=== PATIENT | female | born 1990 | race Caucasian/White ===

== ENCOUNTER 2023-10-08 16:31 | Observation (INO) | payer OTHER, SELFPAY ==
--- NOTE | ~2023-10-08 | US_ITS ---
Pelvic ultrasound. Clinical History: First trimester , vaginal bleeding Technique: Realtime transabdominal and transvaginal scanning of the pelvis was performed. Color flow Doppler and Doppler spectral analysis were performed. Findings: The uterus is anteverted. IUD is in place, in the lower uterine segment. The endometrial st ripe has a thickness of 9 mm. There is heterogeneous fluid within the endometrial cavity extending th rough the internal cervical os and into the cervix. No intrauterine gestational sac identified.. The right ovary measures 2.8 x 1.8 x 2.4 cm. No significant right ovarian or adnexal mass is seen. The left ovary measures 2.2 x 1.6 x 1.7 cm. No significant left ovarian or adnexal mass is seen. There is no evidence of free fluid in the cul de sac. Impression: Heterogeneous fluid within the endometrial cavity and cervix, without well-formed gestational sac. Fi ndings are most compatible with in progress. IUD in place, and the lower uterine segment. Reviewed, dictated and finalized at location . HOLOGY LECTURER Impression: Heterogeneous fluid within the endometrial cavity and cervix, without well-form ed gestational sac. Findings are most compatible with in progress. IUD in place, and the lower uterine segment.
[2023-10-08 16:34] VITALS: BP 119/85; PULSE 99; RESP 16; TEMP 36.4; O2SAT 100
[2023-10-08 17:01] LABS: Basophils Absolute Auto 0.1 K/mm3 (0.0-0.1); Basophils Percent Auto 0.7 % (0.2-1.2); Eosinophils Absolute Auto 0.1 K/mm3 (0-0.3); Eosinophils Percent Auto 1.5 % (0-4.4); Hematocrit 30.2 % (37.0-47.0); Immature Granulocyte Absolute 0.02 K/mm3 (0.00-0.031); Immature Granulocyte Percent A 0.2 % (0-0.5); Lymphocytes Absolute Auto 2.91 K/mm3 (0.9-3.2); Lymphocytes Percent Auto 34.2 % (18.3-44.2); Mean Corpuscular HGB Conc 33.1 g/dl (32-36); Mean Corpuscular Hemoglobin 31.3 pg (26-34); Mean Corpuscular Volume 94.7 fl (80-100); Monocytes Absolute Auto 0.5 K/mm3 (0.1-0.6); Monocytes Percent Auto 6.2 % (2.6-8.5); Neutrophils Absolute Auto 4.9 K/mm3 (1.3-6.7); Neutrophils Percent Auto 57.2 % (45.5-73.1); Platelet Count Result 230 k/mm3 (150-375); Red Blood Count 3.19 M/mm3 (4.2-5.4); Red Cell Distribution Width 13.1 % (11.5-14.5); White Blood Count 8.5 K/mm3 (4.5-10.0)
[2023-10-08 18:35] VITALS: BP 127/64; PULSE 70; RESP 18; O2SAT 100
--- NOTE | 2023-10-08 18:57 | PM.IMHP ---
H&P: HPI History of Present Illness Date/Time: 10/08/23 18:57 Chief Complaint: Bleeding with an IUD and positive test Narrative: set 32-year-old 1 para 0 female who had an IUD placed about 3 months ago. She did not follow-up and called me 2 days ago in [place] complaining of heavy bleeding. She went that late evening to the ER in [place] and was told she was . She returned on the train today and noted that she had heavy bleeding. She was told to stay NPO however she had a full meal. She is here the ER and the ER physician noted very minimal bleeding present. Quantitative hCG years about 2200. Ultrasound results were pending Meds Home Medications and Allergies Allergies Allergy/AdvReac Type Severity Reaction Status Date / Time Penicillins Allergy Rash Verified 10/08/23 16:50 tramadol Allergy Anxiety Verified 10/08/23 16:50 Vital Signs Vital Signs - 24 hr 10/08/23 16:34 10/08/23 18:35 Temperature 97.6 F Pulse Rate 99 70 Respiratory Rate 16 18 Blood Pressure 119/85 127/64 Pulse Oximetry 100 100 Exam Const: General: cooperative, healthy appearing and comfortable Nutritional Appearance: overweight Orientation/consciousness: oriented to person, oriented to place and oriented to time HENMT: Head: normal to inspection Resp: Effort & Inspection: normal respiratory effort Cardio: Rate: regular rate Rhythm: regular rhythm Heart sounds: S1 normal heart sound present and S2 normal heart sound present GI: Inspection: normal to inspection H&P: Results Labs Labs: Short CBC 10/08/23 Range/Units 16:56 WBC 8.5 (4.5-10.0) K/mm3 Hgb 10.0 L (12.0-15.0) g/dL Hct 30.2 L (37.0-47.0) % Plt Count 230 (150-375) k/mm3 Assessment and Plan Assessment and plan (1) Early stage of : Code(s): Z34.90 - Encounter for supervision of normal , unspecified, unspecified trimester Status: Acute (2) IUD complication: Code(s): T83.9XXA - Unspecified complication of genitourinary prosthetic device, implant and graft, initial encounter Status: Acute Plan good ultrasound. Will remove IUD. Will observe for odd for observation she stated she was having very heavy bleeding earlier
--- NOTE | 2023-10-08 19:08 | ED.PREGNANCY ---
HPI - General Chief complaint: Vaginal Bleeding Stated complaint: 7 weeks preg, has IUD, bleeding vaginally Time Seen by Provider: 10/08/23 16:41 History of Present Illness HPI Narrative: Patient has an IUD, was found to have positive test, while she was in [place] she started having heavy vaginal bleeding to the point where she is soaking a pad an hour for multiple hours, her OB told her to go straight to the ER. Bleeding has slowed down since arrival here. Related Data Allergies Allergy/AdvReac Type Severity Reaction Status Date / Time Penicillins Allergy Rash Verified 10/08/23 16:50 tramadol Allergy Anxiety Verified 10/08/23 16:50 Review of Systems Review of Systems: CONST: No fever. HEENT: No sore throat C/V: No chest pain RESP: No cough GI: slight abdominal cramping : vaginal bleeding M/S: No joint pain. SKIN: No rash. NEURO: [No headache or focal numbness or weakness] PSYCH: [No depression] Exam Narrative: EXAMINATION OF ORGAN SYSTEMS/BODY AREAS: Constitutional: Vital signs per nursing GENERAL:[No acute distress, non-toxic appearing.] HEAD: Normal with no signs of head trauma. EYES: EOMI, conjunctiva normal ENT: Hearing grossly intact LUNGS: Nonlabored breathing. HEART: [Regular rate and rhythm] ABD: [Soft], [nontender to palpation] : Scant blood in vault; no active hemorrhage EXT: Normal range of motion SKIN: [No rashes or lesions.] NEURO: [Alert and oriented x 3. No gross focal sensory or strength deficits.] PSYCH: Normal affect Course Vital Signs Vital signs: Vital Signs Temperature 97.6 F 10/08/23 16:34 Pulse Rate 99 10/08/23 16:34 Respiratory Rate 16 10/08/23 16:34 Blood Pressure 119/85 10/08/23 16:34 Pulse Oximetry 100 10/08/23 16:34 Temperature 97.6 F 10/08/23 16:34 Pulse Rate 70 10/08/23 18:35 Respiratory Rate 18 10/08/23 18:35 Blood Pressure 127/64 10/08/23 18:35 Pulse Oximetry 100 10/08/23 18:35 MDM - OB/Uterine Contractions MDM Narrative Medical decision making narrative: patient presenting with vaginal bleeding, showing is recently found to be 7 weeks despite having IUD. Well-appearing on exam, on pelvic exam no active hemorrhage. abdomen soft nontender beta quant 2200, Hemoglobin 10 which is down from baseline of about 12 per OB, I was unable to visualize on my own bedside ultrasound. Discussed with OB on-call, who did come to bedside to evaluate the patient and when the patient for observation. Official transvaginal ultrasound unfortunately showing likely spontaneous . Lab Data 10/08/23 16:56 Labs: Lab Results 10/08/23 Range/Units 16:56 WBC 8.5 (4.5-10.0) K/mm3 RBC 3.19 L (4.2-5.4) M/mm3 Hgb 10.0 L (12.0-15.0) g/dL Hct 30.2 L (37.0-47.0) % MCV 94.7 (80-100) fl MCH 31.3 (26-34) pg MCHC 33.1 (32-36) g/dl RDW 13.1 (11.5-14.5) % Plt Count 230 (150-375) k/mm3 MPV 10.0 (7.4-10.4) fl Immature Gran % (Auto) 0.2 (0-0.5) % Neut % (Auto) 57.2 (45.5-73.1) % Lymph % (Auto) 34.2 (18.3-44.2) % [place] % (Auto) 6.2 (2.6-8.5) % Eos % (Auto) 1.5 (0-4.4) % Baso % (Auto) 0.7 (0.2-1.2) % Lymph # (Auto) 2.91 (0.9-3.2) K/mm3 [place] # (Auto) 0.5 (0.1-0.6) K/mm3 Eos # (Auto) 0.1 (0-0.3) K/mm3 Baso # (Auto) 0.1 (0.0-0.1) K/mm3 Abs Immat Gran (auto) 0.02 (0.00-0.031) K/mm3 Absolute Neuts (auto) 4.9 (1.3-6.7) K/mm3 Absolute Nucleated RBC 0.0 (0.0-0.012) K/mm3 Nucleated RBC % 0.0 (0.0-0.2) % Beta HCG, Quant 2255.90 mIU/ML Blood Type A Positive Antibody Screen Negative Screen TNP Baby's Blood Type TNP Baby's MURPHY TNP Doses of RhIg Required 0 Discharge Plan Discharge Clinical Impression: IUD complication, Vaginal bleeding, Early stage of Patient Disposition: Still a Patient Condition: Serious
--- NOTE | 2023-10-08 19:20 | PC.NURSE ---
Dr. Paredes at bedside to evaluate. Speculum exam performed and IUD removed by Dr. Paredes. Specimen collected and sent to lab. See MD notes.
--- NOTE | 2023-10-08 19:23 | P.PNOB_ITS ---
MECHANICAL ENGINEERING INTERN - A/P Time Spent With Patient Time: Total time spent is greater than 50% in coordination of care (as documented) at patient's floor/unit and/or counseling patient: Time with patient: 15 - 25 minutes MECHANICAL ENGINEERING INTERN- PN:Milly Post-Op Subjective Date/time seen: 10/08/23 19:23 Interval history: The IUD was removed as the cervix was open about 2cm fibroid tissue was attached to. I reviewed the ultrasound which showed findings consistent with pending A/ B. The patient is agreeable to be watched denied syndrome in the morning if she remains stable with recheck of 8 H and H in the morning MECHANICAL ENGINEERING INTERN - PN: Obj Data Vital Signs Vital Signs: Vital Signs - 24 hr 10/08/23 16:34 10/08/23 18:35 Temperature 97.6 F Pulse Rate 99 70 Respiratory Rate 16 18 Blood Pressure 119/85 127/64 Pulse Oximetry 100 100 Meds/Results Medications: Active Medications Generic Name Dose Route Start Last Admin Trade Name Freq PRN Reason Stop Dose Admin Dextrose/Lactated Ringer's 1,000 mls @ 125 mls/hr 10/08/23 18:50 Dextrose 5%/Lactated Ringers IV CONT .Q8H BEATRIZ Radiology Results: ITS Impressions Transvaginal US 10/08/23 19:15 Impression: Heterogeneous fluid within the endometrial cavity and cervix, without well- formed gestational sac. Findings are most compatible with in progress. IUD in place, and the lower uterine segment. Labs 10/08/23 16:56 Labs: Laboratory Results - last 24 hr 10/08/23 16:56 WBC 8.5 RBC 3.19 L Hgb 10.0 L Hct 30.2 L MCV 94.7 MCH 31.3 MCHC 33.1 RDW 13.1 Plt Count 230 MPV 10.0 Immature Gran % (Auto) 0.2 Neut % (Auto) 57.2 Lymph % (Auto) 34.2 [place] % (Auto) 6.2 Eos % (Auto) 1.5 Baso % (Auto) 0.7 Lymph # (Auto) 2.91 [place] # (Auto) 0.5 Eos # (Auto) 0.1 Baso # (Auto) 0.1 Abs Immat Gran (auto) 0.02 Absolute Neuts (auto) 4.9 Absolute Nucleated RBC 0.0 Nucleated RBC % 0.0 Beta HCG, Quant 2255.90 Blood Type A Positive Antibody Screen Negative Screen TNP Baby's Blood Type TNP Baby's MURPHY TNP Doses of RhIg Required 0
[2023-10-08] MEDS: DEXTROSE 5%/LACTATED RINGERS 1,000 ML 125 ML IV CONT (19:49)
[2023-10-08 20:17] VITALS: BMI 45.3
[2023-10-08] MEDS: ZOLPIDEM TARTRATE (*CRX) 5 MG TABLET PO (22:07)
[2023-10-08] MEDS: IBUPROFEN 600 MG TABLET PO (22:07)
[2023-10-09 05:32] LABS: Basophils Percent Auto 0.6 % (0.2-1.2); Eosinophils Absolute Auto 0.2 K/mm3 (0-0.3); Eosinophils Percent Auto 3.5 % (0-4.4); Hematocrit 25.4 % (37.0-47.0); Hemoglobin 8.1 g/dL (12.0-15.0); Immature Granulocyte Absolute 0.02 K/mm3 (0.00-0.031); Immature Granulocyte Percent A 0.4 % (0-0.5); Lymphocytes Absolute Auto 1.56 K/mm3 (0.9-3.2); Lymphocytes Percent Auto 30.7 % (18.3-44.2); Mean Corpuscular HGB Conc 31.9 g/dl (32-36); Mean Corpuscular Hemoglobin 31.4 pg (26-34); Mean Corpuscular Volume 98.4 fl (80-100); Mean Platelet Volume 10.4 fl (7.4-10.4); Monocytes Absolute Auto 0.5 K/mm3 (0.1-0.6); Monocytes Percent Auto 9.4 % (2.6-8.5); Neutrophils Absolute Auto 2.8 K/mm3 (1.3-6.7); Neutrophils Percent Auto 55.4 % (45.5-73.1); Platelet Count Result 168 k/mm3 (150-375); Red Blood Count 2.58 M/mm3 (4.2-5.4); Red Cell Distribution Width 13.2 % (11.5-14.5); White Blood Count 5.1 K/mm3 (4.5-10.0)
--- NOTE | 2023-10-09 07:02 | PM.GYNPNOP ---
SHELLACKER - A/P Postoperative Postoperative day: 1 Postoperative status: doing well and other (Bleeding is light and hemoglobin stable) Time Spent With Patient Time: Total time spent is greater than 50% in coordination of care (as documented) at patient's floor/unit and/or counseling patient: Time with patient: less than 15 minutes SHELLACKER- PN:Subj Post-Op Subjective Date/time seen: 10/09/23 07:02 Interval history: The IUD was removed as the cervix was open about 2cm fibroid tissue was attached to. I reviewed the ultrasound which showed findings consistent with pending A/ B. The patient is agreeable to be watched denied syndrome in the morning if she remains stable with recheck of 8 H and H in the morning Subjective: patient reports feeling better and patient has no complaints Exam Const: General: cooperative, healthy appearing and comfortable Orientation/consciousness: oriented to person, oriented to place and oriented to time SHELLACKER - PN: Obj Data Vital Signs Vital Signs: Vital Signs - 24 hr 10/08/23 16:34 10/08/23 18:35 10/08/23 20:17 Temperature 97.6 F Pulse Rate 99 70 Respiratory Rate 16 18 Blood Pressure 119/85 127/64 Pulse Oximetry 100 100 Oxygen Delivery Room Air Meds/Results Medications: Active Medications Generic Name Dose Route Start Last Admin Trade Name Freq PRN Reason Stop Dose Admin Dextrose/Lactated Ringer's 1,000 mls @ 125 mls/hr 10/08/23 18:50 10/08/23 19:49 Dextrose 5%/Lactated Ringers IV CONT 125 mls/hr .Q8H BEATRIZ Administration Ibuprofen 600 mg 10/08/23 21:48 10/08/23 22:07 Ibuprofen 600 Mg Tablet PO 600 mg Q6H PRN Administration Pain Rated 1-3 Zolpidem Tartrate 5 mg 10/08/23 21:48 10/08/23 22:07 Zolpidem Tartrate (*Crx) 5 Mg Tablet PO 5 mg HS PRN Administration Insomnia Radiology Results: ITS Impressions Transvaginal US 10/08/23 19:15 Impression: Heterogeneous fluid within the endometrial cavity and cervix, without well-formed gestational sac. Findings are most compatible with in progress. IUD in place, and the lower uterine segment. Labs 10/09/23 05:19 Labs: Laboratory Results - last 24 hr 10/08/23 10/09/23 16:56 05:19 WBC 8.5 5.1 RBC 3.19 L 2.58 L Hgb 10.0 L 8.1 L Hct 30.2 L 25.4 L MCV 94.7 98.4 MCH 31.3 31.4 MCHC 33.1 31.9 L RDW 13.1 13.2 Plt Count 230 168 MPV 10.0 10.4 Immature Gran % (Auto) 0.2 0.4 Neut % (Auto) 57.2 55.4 Lymph % (Auto) 34.2 30.7 [place] % (Auto) 6.2 9.4 H Eos % (Auto) 1.5 3.5 Baso % (Auto) 0.7 0.6 Lymph # (Auto) 2.91 1.56 [place] # (Auto) 0.5 0.5 Eos # (Auto) 0.1 0.2 Baso # (Auto) 0.1 0.0 Abs Immat Gran (auto) 0.02 0.02 Absolute Neuts (auto) 4.9 2.8 Absolute Nucleated RBC 0.0 0.0 Nucleated RBC % 0.0 0.0 Beta HCG, Quant 2255.90 Blood Type A Positive Antibody Screen Negative Screen TNP Baby's Blood Type TNP Baby's MURPHY TNP Doses of RhIg Required 0
--- NOTE | 2023-10-09 07:03 | P.DS_ITS ---
DS: Admitting Diagnosis Discharge Date 10/09/2023 Admitting Diagnosis Incomplete AB/IUD displacement DS: Discharge Diagnosis Discharge Diagnosis (1) Vaginal bleeding: Code(s): N93.9 - Abnormal uterine and vaginal bleeding, unspecified Status: Acute (2) IUD complication: Code(s): T83.9XXA - Unspecified complication of genitourinary prosthetic device, implant and graft, initial encounter Status: Acute (3) Early stage of : Code(s): Z34.90 - Encounter for supervision of normal , unspecified, unspecified trimester Status: Acute DS: Summary Hospital Course Reason for hospitalization: Patient was admitted through the emergency department with the displaced IUD and with heavy bleeding. Hospital Course: Patient had the IUD removed in OB. Overnight she was fairly free of bleeding the lower hemoglobin did drop 2 points. She was discharged home on iron follow- up and 1 week Time Spent with Patient Time attestation: Total time spent providing and/or coordinating discharge services: DS: Data Data Completed and Pending Pending studies at discharge: Pending at discharge 10/08/23 19:21 Surgical [PTH] Routine Labs on day of discharge: Labs from last 24 hours 10/09/23 10/08/23 05:19 16:56 WBC 5.1 8.5 RBC 2.58 L 3.19 L Hgb 8.1 L 10.0 L Hct 25.4 L 30.2 L MCV 98.4 94.7 MCH 31.4 31.3 MCHC 31.9 L 33.1 RDW 13.2 13.1 Plt Count 168 230 MPV 10.4 10.0 Immature Gran % (Auto) 0.4 0.2 Neut % (Auto) 55.4 57.2 Lymph % (Auto) 30.7 34.2 [place] % (Auto) 9.4 H 6.2 Eos % (Auto) 3.5 1.5 Baso % (Auto) 0.6 0.7 Lymph # (Auto) 1.56 2.91 [place] # (Auto) 0.5 0.5 Eos # (Auto) 0.2 0.1 Baso # (Auto) 0.0 0.1 Abs Immat Gran (auto) 0.02 0.02 Absolute Neuts (auto) 2.8 4.9 Absolute Nucleated RBC 0.0 0.0 Nucleated RBC % 0.0 0.0 Beta HCG, Quant 2255.90 Blood Type A Positive Antibody Screen Negative Screen TNP Baby's Blood Type TNP Baby's MURPHY TNP Doses of RhIg Required 0 Discharge Plan Discharge Attending physician on discharge: Timothy Harris Discharging Clinician: Timothy Harris Patient Disposition: Home, Self-Care Activity: may shower, no straining and pelvic rest Diet: heart healthy Wound Care Instructions: follow printed instructions Patient Instructions: Antibiotic Form Stand Alone Forms: General Discharge Information Follow-up/Referrals: Timothy Harris MD [Physician] - Date of admission: 10/08/23 18:11 Primary Care Provider: UNKNOWN,DOCTOR Admitting Provider: Timothy Harris Attending physician on admission: Timothy Harris Condition: Stable
--- NOTE | 2023-10-09 07:05 | PM.GYNPNOP ---
SAFETY SITTER - A/P Postoperative Postoperative day: 1 Postoperative status: doing well Postoperative plan: other (Home) Time Spent With Patient Time: Total time spent is greater than 50% in coordination of care (as documented) at patient's floor/unit and/or counseling patient: Time with patient: less than 15 minutes SAFETY SITTER- PN:Subj Post-Op Subjective Date/time seen: 10/09/23 07:05 Interval history: The IUD was removed as the cervix was open about 2cm fibroid tissue was attached to. I reviewed the ultrasound which showed findings consistent with pending A/ B. The patient is agreeable to be watched denied syndrome in the morning if she remains stable with recheck of 8 H and H in the morning Exam Const: General: cooperative, healthy appearing and comfortable Nutritional Appearance: average body habitus Orientation/consciousness: oriented to person, oriented to place and oriented to time Resp: Effort & Inspection: normal respiratory effort Cardio: Rate: regular rate Rhythm: regular rhythm Heart sounds: S1 normal heart sound present and S2 normal heart sound present : Speculum Exam - Vagina: vaginal bleeding (Bleeding is light) SAFETY SITTER - PN: Obj Data Vital Signs Vital Signs: Vital Signs - 24 hr 10/08/23 16:34 10/08/23 18:35 10/08/23 20:17 Temperature 97.6 F Pulse Rate 99 70 Respiratory Rate 16 18 Blood Pressure 119/85 127/64 Pulse Oximetry 100 100 Oxygen Delivery Room Air Meds/Results Medications: Active Medications Generic Name Dose Route Start Last Admin Trade Name Freq PRN Reason Stop Dose Admin Dextrose/Lactated Ringer's 1,000 mls @ 125 mls/hr 10/08/23 18:50 10/08/23 19:49 Dextrose 5%/Lactated Ringers IV CONT 125 mls/hr .Q8H BEATRIZ Administration Ibuprofen 600 mg 10/08/23 21:48 10/08/23 22:07 Ibuprofen 600 Mg Tablet PO 600 mg Q6H PRN Administration Pain Rated 1-3 Zolpidem Tartrate 5 mg 10/08/23 21:48 10/08/23 22:07 Zolpidem Tartrate (*Crx) 5 Mg Tablet PO 5 mg HS PRN Administration Insomnia Radiology Results: ITS Impressions Transvaginal US 10/08/23 19:15 Impression: Heterogeneous fluid within the endometrial cavity and cervix, without well-formed gestational sac. Findings are most compatible with in progress. IUD in place, and the lower uterine segment. Labs 10/09/23 05:19 Labs: Laboratory Results - last 24 hr 10/08/23 10/09/23 16:56 05:19 WBC 8.5 5.1 RBC 3.19 L 2.58 L Hgb 10.0 L 8.1 L Hct 30.2 L 25.4 L MCV 94.7 98.4 MCH 31.3 31.4 MCHC 33.1 31.9 L RDW 13.1 13.2 Plt Count 230 168 MPV 10.0 10.4 Immature Gran % (Auto) 0.2 0.4 Neut % (Auto) 57.2 55.4 Lymph % (Auto) 34.2 30.7 [place] % (Auto) 6.2 9.4 H Eos % (Auto) 1.5 3.5 Baso % (Auto) 0.7 0.6 Lymph # (Auto) 2.91 1.56 [place] # (Auto) 0.5 0.5 Eos # (Auto) 0.1 0.2 Baso # (Auto) 0.1 0.0 Abs Immat Gran (auto) 0.02 0.02 Absolute Neuts (auto) 4.9 2.8 Absolute Nucleated RBC 0.0 0.0 Nucleated RBC % 0.0 0.0 Beta HCG, Quant 2255.90 Blood Type A Positive Antibody Screen Negative Screen TNP Baby's Blood Type TNP Baby's MURPHY TNP Doses of RhIg Required 0
[2023-10-09 07:30] VITALS: BP 125/56; PULSE 81; TEMP 36.5
[2023-10-09 07:31] VITALS: PULSE 79; O2SAT 100
== END 2023-10-09 07:58 | disposition home or self-care (01) ==
LOC: ANHED 17:54 → ANHOBPP 18:36
PROVIDERS: Admitting Provider Obstetrics & Gynecology; Emergency Provider Emergency Medicine; Visit Provider Obstetrics & Gynecology
DX: O46.91 Antepartum hemorrhage, unspecified, first trimester (principal); T83.83XA Hemorrhage due to genitourinary prosthetic devices, implants and grafts, initial encounter; Z3A.01 Less than 8 weeks gestation of pregnancy
CPT/HCPCS: 36415; 76817; 84702; 85025; 85461; 86850; 86900; 86901; 88305; 99285; A9270; G0378; G0379; J7121

== ENCOUNTER 2024-03-05 07:13 | Emergency (ER) | payer OTHER, SELFPAY ==
[2024-03-05] VITALS (11 sets, daily range): BP systolic 109–164; BP diastolic 63–76; PULSE 64–103; RESP 16–18; TEMP 37.1; O2SAT 100
--- NOTE | 2024-03-05 07:20 | ED.NAVMDI ---
HPI - Nausea/Vomiting/Diarrhea General Chief complaint: Nausea/Vomiting/Diarrhea Stated complaint: 9 weeks preg, N/V Time Seen by Provider: 03/05/24 07:18 History of Present Illness HPI Narrative: Pt is 9 weeks and says she is unable to keep anything down. Pt has tried zofran and reglan without relief. Pt also has history of gastric sleeve. Pt has no abdominal pain or vaginal bleeding. Related Data Allergies Allergy/AdvReac Type Severity Reaction Status Date / Time Penicillins Allergy Rash Verified 03/05/24 07:21 tramadol Allergy Anxiety Verified 03/05/24 07:21 Review of Systems Review of Systems: All systems reviewed & are unremarkable except as noted in HPI and below PMFSH Social History Social History Smoking status: Never smoker Do You Feel Safe in your Home?: Yes Lack of Transportation: No Lack of Food: Never True Current Housing: I Have Housing Concerned About Future Housing: No Difficulty Paying Gas/Electric Bills: No Difficulty Paying for Meds: No Currently Unemployed: No Education: Bachelor's Degree Difficulty w/ Childcare or Family Care: No Spiritual care concerns: No Exam Const: General: healthy appearing and no acute distress Nutritional Appearance: well nourished Orientation/consciousness: patient oriented x3 Limitations: no limitations HENMT: Head: normal to inspection Mouth: Yes Normal oral and palatal mucosa present Resp: Effort & Inspection: normal respiratory effort Auscultation: clear to auscultation bilaterally Cardio: Rate: regular rate Rhythm: regular rhythm GI: GI Palp: Yes Soft to palpation and No Tenderness to palpation present (GI) Auscultation: normal bowel sounds Back/Spine/Pelvis: Back: no CVA tenderness Skin: General skin exam: normal color Rashes: no rashes Wounds: no wounds Neuro: General: patient oriented x3, moves all extremities, no meningeal signs and no focal motor deficits Speech: normal speech Extrem: General: normal to inspection and no clubbing, cyanosis or edema Psych: Mental Status: mental status grossly normal Affect: normal affect Attitude: cooperative Course Vital Signs Vital signs: Vital Signs Temperature 98.7 F 03/05/24 07:16 Pulse Rate 103 H 03/05/24 07:16 Respiratory Rate 18 03/05/24 07:16 Blood Pressure 164/76 H 03/05/24 07:16 Pulse Oximetry 100 03/05/24 07:16 Oxygen Delivery Room Air 03/05/24 07:16 Temperature 98.7 F 03/05/24 07:16 Pulse Rate 64 03/05/24 09:18 Respiratory Rate 16 03/05/24 09:18 Blood Pressure 113/70 03/05/24 09:18 Pulse Oximetry 100 03/05/24 09:18 Oxygen Delivery Room Air 03/05/24 07:16 MDM - Nausea/Vomiting/Diarrhea MDM Narrative Medical decision making narrative: Pt present with numerous episodes of vimiting. oral antiemetics not working. Will check labs and give IVF and reglan IV here. labs look ok. Pt feeling better after fluids and reglan. tolerated water and crackers. Differential Diagnosis Differential diagnosis: Likely gastroenteritis and dehydration Lab Data 03/05/24 07:32 03/05/24 07:32 Labs: Lab Results 03/05/24 Range/Units 07:32 WBC 8.4 (4.5-10.0) K/mm3 RBC 3.73 L (4.2-5.4) M/mm3 Hgb 11.5 L D (12.0-15.0) g/dL Hct 35.0 L (37.0-47.0) % MCV 93.8 (80-100) fl MCH 30.8 (26-34) pg MCHC 32.9 (32-36) g/dl RDW 14.4 (11.5-14.5) % Plt Count 231 (150-375) k/mm3 MPV 10.3 (7.4-10.4) fl Immature Gran % (Auto) 0.5 (0-0.5) % Neut % (Auto) 66.0 (45.5-73.1) % Lymph % (Auto) 25.1 (18.3-44.2) % [place] % (Auto) 7.3 (2.6-8.5) % Eos % (Auto) 0.7 (0-4.4) % Baso % (Auto) 0.4 (0.2-1.2) % Lymph # (Auto) 2.11 (0.9-3.2) K/mm3 [place] # (Auto) 0.6 (0.1-0.6) K/mm3 Eos # (Auto) 0.1 (0-0.3) K/mm3 Baso # (Auto) 0.0 (0.0-0.1) K/mm3 Abs Immat Gran (auto) 0.04 H (0.00-0.031) K/mm3 Absolute Neuts (auto)
[2024-03-05] MEDS: DEXTROSE 5%/LACTATED RINGERS 1,000 ML 999 ML IV CONT (07:31)
[2024-03-05] MEDS: METOCLOPRAMIDE HCL INJ 10 MG/2 ML VIAL IV PUSH (07:32)
[2024-03-05] MEDS: FAMOTIDINE 20 MG/2 ML VIAL IV PUSH (07:37)
[2024-03-05 07:39] LABS: Basophils Percent Auto 0.4 % (0.2-1.2); Eosinophils Absolute Auto 0.1 K/mm3 (0-0.3); Eosinophils Percent Auto 0.7 % (0-4.4); Hemoglobin 11.5 g/dL (12.0-15.0); Immature Granulocyte Absolute 0.04 K/mm3 (0.00-0.031); Immature Granulocyte Percent A 0.5 % (0-0.5); Lymphocytes Absolute Auto 2.11 K/mm3 (0.9-3.2); Lymphocytes Percent Auto 25.1 % (18.3-44.2); Mean Corpuscular HGB Conc 32.9 g/dl (32-36); Mean Corpuscular Hemoglobin 30.8 pg (26-34); Mean Corpuscular Volume 93.8 fl (80-100); Mean Platelet Volume 10.3 fl (7.4-10.4); Monocytes Absolute Auto 0.6 K/mm3 (0.1-0.6); Monocytes Percent Auto 7.3 % (2.6-8.5); Neutrophils Absolute Auto 5.6 K/mm3 (1.3-6.7); Platelet Count Result 231 k/mm3 (150-375); Red Blood Count 3.73 M/mm3 (4.2-5.4); Red Cell Distribution Width 14.4 % (11.5-14.5); White Blood Count 8.4 K/mm3 (4.5-10.0)
[2024-03-05 07:51] LABS: Alanine Aminotransferase 12 U/L (6-35); Albumin Level 3.9 g/dL (3.5-5.1); Alkaline Phosphatase 61 U/L (38-126); Anion Gap 7 mmol/L (4-12); Aspartate Amino Transferase 18 U/L (14-36); Bilirubin,Total 0.3 mg/dL (0.2-1.3); Blood Urea Nitrogen 14 mg/dL (7-17); Calcium 8.7 mg/dL (8.4-10.2); Carbon Dioxide 22 mmol/L (22-30); Chloride 107 mmol/L (98-107); Estimated CRCL calculation 178 ml/min; Estimated Glomerular Filt Rate > 60; Glucose 63 mg/dL (65-110); Potassium 3.4 mmol/L (3.4-5.0); Sodium 136 mmol/L (137-145)
--- NOTE | 2024-03-05 08:03 | PC.NURSE ---
No emesis since arrival.
[2024-03-05] MEDS: DEXTROSE 5%/LACTATED RINGERS 1,000 ML 200 ML IV CONT (08:07)
== END 2024-03-05 09:20 | disposition home or self-care (01) ==
PROVIDERS: Emergency Provider Emergency Medicine
DX: O21.0 Mild hyperemesis gravidarum (principal); Z3A.09 9 weeks gestation of pregnancy
CPT/HCPCS: 36415; 80053; 84702; 85025; 96361; 96374; 96375; 99284; J2765; J7121

== ENCOUNTER 2024-06-21 18:42 | Observation (INO) | payer OTHER, SELFPAY ==
[2024-06-21] VITALS (14 sets, daily range): BP systolic 77–102; BP diastolic 28–60; PULSE 67–98; O2SAT 99–100; BMI 51.5
[2024-06-21 19:38] LABS: Add Urine Microscopic? NO; Appearance Urine Clear (Clear); Bilirubin Urine Negative (Negative); Blood Urine Negative (Negative); Color Urine Yellow (Yellow); Glucose Urine UA Negative (Negative); Ketones Urine Negative (Negative); Leukocyte Esterase Ur Negative LEU/UL (Negative); Nitrate Urine Negative (Negative); Protein Urine Negative (Negative); Specific Grav Ur 1.028 (1.001-1.035); pH Urine 6.5 (5.0-9.0)
--- NOTE | 2024-06-21 20:13 | OBADM ---
This patient, Leti Soto, admitted to the OB room OB Post 117 for observation. Patient/family oriented to hospital policies and general routines including ID bracelet, bed and alarms, visiting hours, pain management, procedures, bathroom and other care routines, personal items, smoking policy, room service/diet, and visiting hours. Patient/Family are encouraged to report perceived risks to care and to ask questions if they do not understand what they are told or what they should do.
--- NOTE | 2024-06-22 09:29 | P.PNOB_ITS ---
OB - Triage/Final Diagnosis Visit Information Reason for evaluation: other (cramping) Comments/Additional reasons for admission: I have assessed the risk for this patient, Leti Soto, and determined that she would benefit from observation care. Evaluation Laboratory results: Laboratory Tests 06/21/24 19:08 Urine Color Yellow Urine Appearance Clear Urine pH 6.5 Ur Specific [place] 1.028 Urine Protein Negative Urine Glucose (UA) Negative Urine Ketones Negative Ur Blood (Man) Negative Urine Nitrate Negative Urine Bilirubin Negative Urine Urobilinogen 1.0 Leukocyte Esterase Rfl Negative Vital signs: Vital Signs - 24 hr 06/21/24 19:18 06/21/24 19:23 06/21/24 19:28 Pulse Rate Blood Pressure Pulse Oximetry 99 99 99 Oxygen Delivery 06/21/24 19:33 06/21/24 19:34 06/21/24 19:38 Pulse Rate 75 Blood Pressure 77/28 L Pulse Oximetry 100 99 Oxygen Delivery 06/21/24 19:42 06/21/24 19:43 06/21/24 19:44 Pulse Rate 98 70 Blood Pressure 84/35 L 102/60 Pulse Oximetry 100 Oxygen Delivery 06/21/24 19:48 06/21/24 19:53 06/21/24 19:58 Pulse Rate Blood Pressure Pulse Oximetry 100 100 100 Oxygen Delivery 06/21/24 20:02 06/21/24 20:03 06/21/24 20:11 Pulse Rate 69 Blood Pressure 85/33 L Pulse Oximetry 100 Oxygen Delivery Room Air
== END 2024-06-21 20:35 | disposition home or self-care (01) ==
PROVIDERS: Admitting Provider Obstetrics & Gynecology Gynecology; Visit Provider Obstetrics & Gynecology Gynecology
DX: O26.892 Other specified pregnancy related conditions, second trimester (principal); R10.9 Unspecified abdominal pain; Z3A.24 24 weeks gestation of pregnancy
CPT/HCPCS: 81003; G0378; G0379

== ENCOUNTER 2024-08-24 13:27 | Outpatient (RCR) | payer OTHER, SELFPAY ==
[2024-08-24 14:46] VITALS: BP 116/56; PULSE 77
== END 2024-11-22 23:59 | disposition home or self-care (01) ==
LOC: ANHOBOP 13:27
PROVIDERS: Visit Provider Obstetrics & Gynecology
DX: O36.8130 Decreased fetal movements, third trimester, not applicable or unspecified (principal); Z3A.34 34 weeks gestation of pregnancy
CPT/HCPCS: 59025

== ENCOUNTER 2024-09-22 17:02 | Outpatient (RCR) | payer OTHER, SELFPAY ==
[2024-09-22 17:42] VITALS: BP 111/84; PULSE 99
== END 2024-12-21 23:59 | disposition home or self-care (01) ==
LOC: ANHOBOP 17:02
PROVIDERS: Visit Provider Obstetrics & Gynecology
DX: O36.8190 Decreased fetal movements, unspecified trimester, not applicable or unspecified (principal)
CPT/HCPCS: 59025

== ENCOUNTER 2024-09-30 15:33 | Inpatient (IN) | payer OTHER, SELFPAY ==
[2024-09-30] VITALS (14 sets, daily range): BP systolic 125–151; BP diastolic 63–80; PULSE 71–97; TEMP 36.5–37.1
--- NOTE | 2024-09-30 15:33 | LDADM ---
This patient, Leti Soto, was admitted to Labor/Delivery/Recovery 103 on 09/30/24 at 15:33. Plans for labor, pain management and were discussed with patient. Patient/family oriented to hospital policies and general routines including ID bracelet, bed and alarms, visiting hours, pain management, procedures, bathroom and other care routines, personal items, smoking policy, room service/diet and guest tray routines, infant security routines, and visiting hours. Patient/Family are encouraged to report perceived risks to care and to ask questions if they do not understand what they are told or what they should do. See [facility] for further documentation.
[2024-09-30 16:39] LABS: Basophils Percent Auto 0.4 % (0.2-1.2); Eosinophils Absolute Auto 0.1 K/mm3 (0-0.3); Eosinophils Percent Auto 0.7 % (0-4.4); Hematocrit 29.5 % (37.0-47.0); Hemoglobin 9.5 g/dL (12.0-15.0); Immature Granulocyte Absolute 0.04 K/mm3 (0.00-0.031); Immature Granulocyte Percent A 0.4 % (0-0.5); Lymphocytes Absolute Auto 2.23 K/mm3 (0.9-3.2); Lymphocytes Percent Auto 21.2 % (18.3-44.2); Mean Corpuscular HGB Conc 32.2 g/dl (32-36); Mean Corpuscular Hemoglobin 25.7 pg (26-34); Mean Corpuscular Volume 79.9 fl (80-100); Mean Platelet Volume 11.3 fl (7.4-10.4); Monocytes Absolute Auto 0.7 K/mm3 (0.1-0.6); Monocytes Percent Auto 6.6 % (2.6-8.5); Neutrophils Absolute Auto 7.5 K/mm3 (1.3-6.7); Neutrophils Percent Auto 70.7 % (45.5-73.1); Platelet Count Result 291 k/mm3 (150-375); Red Blood Count 3.69 M/mm3 (4.2-5.4); Red Cell Distribution Width 14.7 % (11.5-14.5); White Blood Count 10.5 K/mm3 (4.5-10.0)
[2024-09-30 16:56] LABS: Rapid Plasma Reagin Non-Reactive (NonReactive)
[2024-09-30] MEDS: DINOPROSTONE 10 MG VAG INSERT VAGINAL (17:23)
[2024-09-30 17:35] LABS: HIV 1/2 Ab P24 Ag Result Negative (Negative)
[2024-09-30] MEDS: LACTATED RINGERS 1,000 ML 125 ML IV CONT (18:28)
[2024-09-30] MEDS: ceFAZolin 3 GM/D5W 100 ML 100 ML IVPB (18:28)
--- NOTE | 2024-09-30 20:27 | P.PNAN_ITS ---
Anes - Eval Pre Procedure Procedure: labor pain management Date/Time: 09/30/24 20:27 Surgeon: Isabela Preop Diagnosis: Pain during labor Pre Op Diagnosis: Induction of labor Patient Data Age: 33 Gender: F Height: 1.68 m Weight: 155.5 kg Last Vital Signs Temp 97.7 F 09/30/24 16:33 Pulse 97 09/30/24 19:30 BP 128/71 09/30/24 19:30 O2 Del Method Room Air 09/30/24 16:20 Allergies Allergy/AdvReac Type Severity Reaction Status Date / Time Penicillins Allergy Rash Verified 03/05/24 07:21 tramadol Allergy Anxiety Verified 03/05/24 07:21 Home Medications ?Medication ?Instructions ?Recorded ?Confirmed ?Type metoclopramide HCl 10 mg tablet 10 mg PO Q6H PRN nausea and 03/05/24 09/30/24 Rx (Reglan) vomiting #20 tabs fluoxetine 20 mg capsule 60 mg PO DAILY 09/30/24 09/30/24 History pantoprazole 40 mg tablet,delayed 20 mg PO DAILY 09/30/24 09/30/24 History release Laboratory Tests 09/30/24 16:06 WBC 10.5 H K/mm3 (4.5-10.0) RBC 3.69 L M/mm3 (4.2-5.4) Hgb 9.5 L g/dL (12.0-15.0) Hct 29.5 L % (37.0-47.0) MCV 79.9 L fl (80-100) MCH 25.7 L pg (26-34) MCHC 32.2 g/dl (32-36) RDW 14.7 H % (11.5-14.5) Plt Count 291 k/mm3 (150-375) MPV 11.3 H fl (7.4-10.4) Immature Gran % (Auto) 0.4 % (0-0.5) Neut % (Auto) 70.7 % (45.5-73.1) Lymph % (Auto) 21.2 % (18.3-44.2) [place] % (Auto) 6.6 % (2.6-8.5) Eos % (Auto) 0.7 % (0-4.4) Baso % (Auto) 0.4 % (0.2-1.2) Lymph # (Auto) 2.23 K/mm3 (0.9-3.2) Bradley # (Auto) 0.7 H K/mm3 (0.1-0.6) Eos # (Auto) 0.1 K/mm3 (0-0.3) Baso # (Auto) 0.0 K/mm3 (0.0-0.1) Abs Immat Gran (auto) 0.04 H K/mm3 (0.00-0.031) Absolute Neuts (auto) 7.5 H K/mm3 (1.3-6.7) Absolute Nucleated RBC 0.000 K/mm3 (0.0-0.012) Nucleated RBC % 0.0 % (0.0-0.2) RPR Non-reactive (NonReactive) HIV 1&2 Ab/P24 Ag 4thGn Negative (Negative) Blood Type A Positive Antibody Screen Negative Patient hx anesthesia problems: none Family hx anesthesia problems: none Results Review: All pre-operative results and documents have been reviewed as part of the pre- operative evaluation. [facility] Past Medical History Medical History Marijuana user History of gastrectomy 2023 Surgical History Surgical History Hx of cholecystectomy Social History Social History Smoking status: Never smoker Do You Feel Safe in your Home?: Yes Lack of Transportation: No Lack of Food: Never True Current Housing: I Have Housing Concerned About Future Housing: No Difficulty Paying Gas/Electric Bills: No Difficulty Paying for Meds: No Currently Unemployed: No Education: Bachelor's Degree Difficulty w/ Childcare or Family Care: No Spiritual care concerns: No Exam Day of Procedure 09/30/24 20:27
[2024-10-01] VITALS (165 sets, daily range): BP systolic 95–171; BP diastolic 33–152; PULSE 61–151; RESP 16; TEMP 36.7–37.7; O2SAT 83–100
[2024-10-01] MEDS: ceFAZolin 2 GM/D5W 50 ML 2 GM/50 ML BAG IVPB ×2 (02:33→10:27)
[2024-10-01] MEDS: fentaNYL CITRATE INJ (*CRX) 100 MCG/2 ML VIAL IV PUSH (03:16)
[2024-10-01] MEDS: OXYTOCIN 30 UNITS/NS 500 ML 30 UNITS/500 ML BAG IV CONT (05:51)
[2024-10-01] MEDS: LACTATED RINGERS 1,000 ML 125 ML IV CONT ×2 (07:35→12:03)
--- NOTE | 2024-10-01 09:15 | WPDOBADMIT ---
Obstetrics - Admit Note Admission Note: record reviewed. Additions to the history and/or subsequent changes in the physical findings follow. 33 y/o at 39 3/7 weeks here for induction of labor. GBS pos. Cervidil and Ancef last night, Cervidil has been withdrawn. Now receiving oxytocin. Epidural in place and she is comfortable. AVSS NST reactive TOCO: contractions every 4-5 min ABD soft, nontender, gravid, vertex EXT nontender Cervix 4-5/80/-2. AROM with clear fluid. Vertex. IUPC placed. A: IUP at 39 3/7 weeks here for induction of labor. GBS pos. P: Oxytocin. Anticipate . Ancef for GBS.
--- NOTE | 2024-10-01 13:18 | PM.OBPRVD ---
OB - Vaginal Delivery Note Procedure Delivery date: 10/01/24 Induction method: Per Cervidil Protocol Delivery augmentation: Rupture of Membranes Delivery monitor: External FHT, External Uterine and Internal Uterine Route of delivery: Episiotomy description: None Laceration Description: Perineal - 2nd Degree Delivery repair: vicryl (3-0) Specimen: Yes (cord blood) Quantitative Blood Loss (ml): 350 Anesthesia type: Epidural Disposition: PACU Complications: None Narrative: 33 y/o at 39 3/7 weeks gestation who presented to the hospital for induction of labor. Cervidil was placed overnight, then withdrawn the next morning. She received Ancef IV for GBS colonization. Oxytocin was administered intravenously. Amniotomy was performed with return of clear fluid. She received an epidural for pain control. Her labor progressed and her cervix dilated completely. She pushed with good effort and delivered the infant's head to the perineum, followed by the body. The nose and mouth were bulb suctioned. After a delay, the cord was clamped and cut. The infant was handed off the field. Cord blood was collected. The placenta delivered spontaneously and was grossly normal in appearance. The usual 3 vessel cord was noted. A second degree midline perineal laceration was sustained. This was reapproximated using 3 0 Vicryl in the usual layered fashion. Excellent hemostasis resulted as did excellent reapproximation of the normal anatomy. Needle and instrument counts were correct. The patient was taken to recovery room in stable condition. The infant went to the nursery in stable condition. I was present and scrubbed for the entire delivery. [place] Baby Date of : 10/01/24 Time of : 13:20 Gestational Age by Date: 39 gender: Female Weight (pounds): 7 Weight (ounces): 4 presentation: vertex position: Left Occiput Anterior Placenta delivery description: Spontaneous and Normal Configuration Cord Vessel Description: 3 Vessels and Delayed Cord Clamping score one minute: 8 score five minutes: 9
--- NOTE | 2024-10-01 13:20 | P.DS_ITS ---
DS: Admitting Diagnosis Discharge Date 10/03/24 Admitting Diagnosis IUP at 39 3/7 weeks GBS colonization DS: Discharge Diagnosis Discharge Diagnosis (1) (normal spontaneous vaginal delivery): Code(s): O80 - Encounter for full-term uncomplicated delivery Status: Acute (2) GBS (group B Streptococcus carrier), +RV culture, currently : Code(s): O99.820 - Streptococcus B carrier state complicating Status: Acute OB - DS: Summary OB Procedures : None OB Procedures Intrapartum: Spontaneous Vag Delivery and GBS prophylaxis OB Procedures: : None Peripartum Data Laceration Description: Perineal - 2nd Degree Episiotomy description: None Time Spent with Patient Time attestation: Total time spent providing and/or coordinating discharge services: DS: Data Data Completed and Pending Labs on day of discharge: Labs from last 24 hours 09/30/24 16:06 WBC 10.5 H RBC 3.69 L Hgb 9.5 L Hct 29.5 L MCV 79.9 L MCH 25.7 L MCHC 32.2 RDW 14.7 H Plt Count 291 MPV 11.3 H Immature Gran % (Auto) 0.4 Neut % (Auto) 70.7 Lymph % (Auto) 21.2 [place] % (Auto) 6.6 Eos % (Auto) 0.7 Baso % (Auto) 0.4 Lymph # (Auto) 2.23 [place] # (Auto) 0.7 H Eos # (Auto) 0.1 Baso # (Auto) 0.0 Abs Immat Gran (auto) 0.04 H Absolute Neuts (auto) 7.5 H Absolute Nucleated RBC 0.000 Nucleated RBC % 0.0 RPR Non-reactive HIV 1&2 Ab/P24 Ag 4thGn Negative Blood Type A Positive Antibody Screen Negative Discharge Plan Discharge Attending physician on discharge: Rey Mar Discharging Clinician: Rey Mar Patient Disposition: Home, Self-Care Activity: pelvic rest Diet: regular Discharge Instructions: Call or return if temperature above 100.4? F, increased abdominal pain, increased vaginal bleeding or any new problems. Patient Language: [place] Stand Alone Forms: General Discharge Information Follow-up/Referrals: Rey Mar MD [Physician] - 6 Weeks Discharge Medications: New Niferex (Sumalate-Quatrefolic) 150 mg iron- 60 mg-1 mg tablet 1 tablet PO DAILY Qty: 30 0RF ibuprofen 600 mg tablet 600 mg PO Q6H PRN (Reason: cramps) Qty: 30 0RF Continued metoclopramide HCl [Reglan] 10 mg tablet 10 mg PO Q6H PRN (Reason: nausea and vomiting) Qty: 20 0RF fluoxetine 20 mg capsule 60 mg PO DAILY pantoprazole 40 mg tablet,delayed release (DR/EC) 20 mg PO DAILY Date of admission: 09/30/24 15:33 Primary Care Provider: UNKNOWN,DOCTOR Admitting Provider: Rey Mar Attending physician on admission: Rey Mar Condition: Stable
[2024-10-01] MEDS: OXYTOCIN 30 UNITS/NS 500 ML 30 UNITS/500 ML BAG 125 UNITS IV CONT (13:33)
[2024-10-01] MEDS: DOCUSATE SODIUM 100 MG CAPSULE PO (16:20)
--- NOTE | 2024-10-01 17:01 | PC.NURSE ---
1645. Introductions were made, then consulted with patient to assess needs related to . Discussed with mother her plans to feed her and the experience so far. Encouraged mother to express any questions or concerns she has regarding feedings. Advised her to call out for a latch check or if she needs assistance waking or positioning baby. Reviewed the blue feeding worksheet for required output and feeding at least 8-12 times every 24 hours. Observed mother latching to the left breast in cross cradle position. was not able to maintain an appropriate latch at this time. Mother encouraged to do s2s at this time with infant and watch for early feeding cues. Reivewed early feeding cues with visual handout. Encouraged mother to keep awake and nursing at the breast for 15 minutes once she is able to get to latch. Reviewed using the blue feeding sheet to record time and duration of feeding. Mother voiced understanding of the education shared, to call for assistance if the does not latch or if there is discomfort with . name/number on communication board. Reported to the Primary RN.?
--- NOTE | 2024-10-01 17:23 | OBPPTRN ---
Patient transferred to post room #287 via (wheelchair). Support person present. Oriented to unit, room, information board, rooming in, admission packet and security measures. Patient verbalizes understanding.
[2024-10-01] MEDS: IBUPROFEN 600 MG TABLET PO (18:52)
[2024-10-01] MEDS: ACETAMINOPHEN 325 MG TABLET 650 MG PO (18:53)
[2024-10-02 04:54] VITALS: BP 124/60; PULSE 74; RESP 16; TEMP 37.3; O2SAT 99
[2024-10-02 05:49] LABS: Hematocrit 26.9 % (37.0-47.0); Hemoglobin 8.1 g/dL (12.0-15.0)
--- NOTE | 2024-10-02 06:09 | P.PNOB_ITS ---
OB - PN: Subj Subjective Date/time seen: 10/02/24 06:09 Narrative: Pain OK. OB - PN: Obj Data Labs 10/02/24 04:47 Labs: Laboratory Results - last 24 hr 10/02/24 04:47 Hgb 8.1 L Hct 26.9 L OB - PN A/P Plan day: 1 Comments: A: PPD#1, doing well. P: Routine care. Exam 2 Psych: Other: AVSS ABD soft, nontender, fundus firm EXT nontender
[2024-10-02] MEDS: MULTIVIT/MIN/PREN/FOL AC/IRON TABLET 1 TAB PO (06:38)
[2024-10-02] MEDS: FLUoxetine HCL 20 MG CAPSULE 60 MG PO (06:38)
[2024-10-02] MEDS: DOCUSATE SODIUM 100 MG CAPSULE PO ×2 (06:49→15:22)
[2024-10-02] MEDS: POLYSACCHARIDE IRON COMPLEX 150 MG CAPSULE PO ×3 (06:49→15:22)
[2024-10-02] MEDS: PANTOPRAZOLE SOD SESQUIHYDRATE 20 MG TAB PO (06:51)
[2024-10-02] MEDS: ACETAMINOPHEN 325 MG TABLET 650 MG PO ×3 (07:07→23:55)
[2024-10-02] MEDS: IBUPROFEN 600 MG TABLET PO ×3 (07:08→23:54)
[2024-10-02 07:21] VITALS: BP 134/77; PULSE 72; RESP 20; TEMP 36.6; O2SAT 100
--- NOTE | 2024-10-02 08:33 | PC.NURSE ---
Mother verbalizes she is able to independently latch with appropriate positioning and alignment. Latch was observed by RN yesterday per pt. She denies any nipple discomfort and is responsively and supplementing after feedings due to infants low glucose. Breast pump was introduced and education was provided by RN per pt. Mother declines any additional assistance or education at this time. Mother is encouraged to call for assistance if her infant doesn?t latch, pain with latching, questions or concerns. Mother voiced understanding of information shared.
--- NOTE | 2024-10-02 14:29 | WPDANLDPN2 ---
Anes-Prog Note L&D Date/Time: 10/02/24 14:29 Comfortable throughout: labor and delivery Neuraxial method: epidural Epidural/Spinal procedure site: clean & non-tender Neuro status: Neuro function grossly intact. Cardiovascular status: normal Respiratory status: normal Airway patency: baseline Mental status: baseline Post-Op hydration status: normal Vital Signs: Last Vital Signs Temp 36.6 C 10/02/24 07:21 Pulse 72 10/02/24 07:21 Resp 20 10/02/24 07:21 BP 134/77 10/02/24 07:21 Pulse Ox 100 10/02/24 07:21 O2 Del Method Room Air 10/02/24 07:22 Pain score (VAS): 0/10 I/O: Intake & Output 10/01/24 10/02/24 10/02/24 23:59 07:59 15:59 Intake Total 100 Balance 100 Post-procedural complaints: none Patient feedback: Patient satisfied with anesthetic care.
[2024-10-02 15:55] VITALS: BP 143/83; PULSE 80; RESP 16; TEMP 36.4; O2SAT 99
[2024-10-02 19:51] VITALS: BP 113/67; PULSE 77; RESP 14; TEMP 37.2; O2SAT 99
[2024-10-03 07:50] VITALS: BP 140/69; PULSE 65; RESP 20; TEMP 36.3
--- NOTE | 2024-10-03 08:03 | PC.NURSE ---
Consulted with mother concerning needs and she shared her ability to independently latch infant without pain. Mother is feeding appropriately for growth of infant and understands stimulating infant to eat if needed. has had appropriate feedings in the last 24 hours meets the outcomes for weight, output, blood sugar and jaundice at this time. Reinforced understanding of milk production, transition of milk, signs of adequate intake, transition of stool, prevention/relief of engorgement, plugged ducts, mastitis, responsive watching for feeding cues, the different methods of stimulating to breastfeed 1-3 hours after the start of the last feeding and when to call a provider using the resource of the feeding sheet along with the mom and baby guide. Mother voiced understanding of the information shared, is confident to continue effectively her at home, when to call for assistance, denies any additional assistance or education at this time. Reported to the Primary RN.
[2024-10-03] MEDS: IBUPROFEN 600 MG TABLET PO (10:14)
[2024-10-03] MEDS: ACETAMINOPHEN 325 MG TABLET 650 MG PO (10:15)
[2024-10-03] MEDS: PANTOPRAZOLE SOD SESQUIHYDRATE 20 MG TAB PO (10:16)
[2024-10-03] MEDS: POLYSACCHARIDE IRON COMPLEX 150 MG CAPSULE PO (10:16)
[2024-10-03] MEDS: FLUoxetine HCL 20 MG CAPSULE 60 MG PO (10:16)
[2024-10-03] MEDS: MULTIVIT/MIN/PREN/FOL AC/IRON TABLET 1 TAB PO (10:17)
[2024-10-03] MEDS: DOCUSATE SODIUM 100 MG CAPSULE PO (10:17)
--- NOTE | 2024-10-03 11:04 | P.PNOB_ITS ---
OB - PN: Subj Subjective Date/time seen: 10/03/24 11:04 Narrative: Pain OK. Would like to go home. OB - PN: Obj Data Labs 10/02/24 04:47 OB - PN A/P Plan day: 2 Comments: A: PPD#2, doing well. P: Home to f/u 6 weeks. Exam 2 Psych: Other: AVSS ABD soft, nontender, fundus firm EXT nontender
[2024-10-03] MEDS: MEASLES,MUMPS,RUBELLA VACCINE 0.5 ML VIAL SUB-Q (12:32)
[2024-10-03] MEDS: WITCH HAZEL 40 PADS 1 PAD TOPICAL (12:34)
[2024-10-03] MEDS: BENZOCAINE 20% AER SPR (*SP) 56 GM CAN 1 SPRAY TOPICAL (12:34)
--- OUTSIDE RECORDS SUMMARY | 2024-10-07 02:44 | XMS_ITS | Encounter Summary ---
Author Organization [facility] Health Address [address] [place] [address] Care Team Providers Care Mva Operator Name Role Phone Crystal Cedeno Primary Care Provider [phone] Encounter Details Date Type Department Care Team (Late st Contact Info) Description 07/24/2023 Orders Only [facility] [address] [place] [address] [address] [place] [address] Elis Milligan, CLOUD SECURITY ARCHITECT-ROTARY DRUM DYER [address] [facility] [address] [place] [address] Social History Tobacco Use Types Packs/Day Years Used Date Smoking Tobacco: Never Smokeless Tobacco: Never Alcohol Use Standard Drinks/Week Comments No 0 (1 standard drink = 0.6 oz pur e alcohol) Overall Financial Resource Strain (CARDIA) Answe r Date Recorded How hard is it for you to pa y for the very basics like food, housing, medical care, and heating? Not hard at all 12/14/2022 [facility] [place] of Occupat ional Health - Occupational Stress Questionnaire Answer Date Recorded Do you feel stress - tense, restless, nervous, or anxious, or unable to sleep at night because your mind is troubled all the time - these days? Only a little 12/14/2022 Hunger Vital Sign Answer Date Recorded Within the past 12 months, y ou worried that your food would run out before you got the money to buy more. Never true 12/15/19 23 Within the past 12 months, t he food you bought just didn't last and you didn't have money to get more. Never true 12/14/2022 PRAPARE - Transportation Answer Date Re corded In the past 12 months, has l ack of transportation kept you from medical appointments or from getting medications? No 11/24 In the past 12 months, has l ack of transportation kept you from meetings, work, or from getting things needed for daily living? No 12/14/2022 Housing Stability Vital Sign Answer Pierce e Recorded In the last 12 months, was t here a time when you were not able to pay the mortgage or rent on time? No 12/14/2022 In the last 12 months, how many places have you lived? 1 12/14/2022 In the last 12 months, was t here a time when you did not have a steady place to sleep or slept in a care home (including now)? No 12/14/2022 Sex and Gender Information Value Date Recorded Sex Assigned at Female 01/03/2022 5:41 PM CDT Gender Identity Female 01/03/2022 5:41 PM CDT Sexual Orientation Bisexual 01/03/2022 5: 41 PM CDT documented as of this encounter Functional Status Functional Status Response Date of Assess ment Is person deaf or have serious hearing difficult y? No 12/14/2022 Is person blind or have serious difficulty seein g? No 12/14/2022 Does person have serious dif ficulty walking/climbing stairs? No 12/14/2022 Does person have difficulty dressing/bathing? No 12/14/2022 Does person have difficulty doing errands alone? No 12/14/2022 Cognitive Status Response Date of Assessm ent Does person have difficulty concentrating/remembering/making decisions? No 12/14/2022 documented as of this encounter Plan of Treatment Not on file documented as of this encounter Visit Diagnoses Not on filedocumented in this encounter Care Teams Mva Operator Relationship Specialty Start Date End Date Crystal Cedeno [address] [place] [address] PCP - General Nurse Practitioner 10/24/22 documented as of this encounter
--- OUTSIDE RECORDS SUMMARY | 2024-10-07 02:44 | XMS_ITS | Encounter Summary ---
Author Organization [facility] Address [address] [place] [address] Care Team Providers Care Bonding And Composite Fabricator Name Role Phone Crystal Cedeno Primary Care Provider [phone] Reason for Visit * Reason Comments Refill Request Encounter Details Date Type Department Care Team (Late st Contact Info) Description 11/15/2023 Refill [facility] [id number] [address] Elis Milligan, MARKETING ENGINEER-INTEGRATION TECHNICIAN [address] [facility] [address] [place] [address] Refill Request Social History Tobacco Use Types Packs/Day Years [...] and heating? Not hard at all 12/14/2022 [facility] [place] of Occupat ional Health - Occupational Stress [...] place to sleep or slept in a detention (including now)? No 12/14/2022 Sex and Gender [...] on filedocumented in this encounter Care Teams Bonding And Composite Fabricator Relationship Specialty Start Date End Date Crystal Cedeno [address] [place] [address] PCP - General Nurse Practitioner 10/24/22 documented as of this encounter
--- OUTSIDE RECORDS SUMMARY | 2024-10-07 02:44 | XMS_ITS | Encounter Summary ---
Author Organization [facility] Health Address [address] [facility] [place] [address] Care Team Providers Care Live In Caregiver Name Role Phone Crystal Cedeno Primary Care Provider [phone] Reason for Visit * Reason Comments Follow-up Encounter Details Date Type Department Care Team (Late st Contact Info) Description 06/19/2023 1:30 PM CDT Office Visit [facility] [id number] [place] [address] Elis Milligan, HAT MAKER-DIRECTOR ORANGE [address] [address] Morbid obesity (HCC) (Primary Dx); Bariatric surgery status; Vitamin deficiency; Vitamin D deficiency Social History Tobacco Use Types Packs/Day Years [...] and heating? Not hard at all 12/14/2022 [facility] [place] [facility] Occup[facility] ional Health - Occupational Stress [...] place to sleep or slept in a senior living (including now)? No 12/14/2022 Sex and Gender Information Value Date Recorded Sex Assigned at Female 01/03/2022 5:41 PM CDT Gender Identity Female 01/03/2022 5:41 PM CDT Sexual Orientation Bisexual 01/03/2022 5: 41 PM CDT documented as of this encounter Last Filed Vital Signs Vital Sign Reading Time Taken Comments Blood Pressure 122/79 06/19/2023 1:05 PM CDT Pulse 73 06/19/2023 1:05 PM CDT Temperature 37.1 ??C (98.8 ??F) 06/19/2023 1:05 PM CD T Respiratory Rate - - Oxygen Saturation 97% 06/19/2023 1:05 PM CDT Inhaled Oxygen Concentration - - Weight 127.9 kg (282 lb) 06/19/2023 1:05 PM CDT Height 167.6 cm (5' 6 ) 06/19/2023 1:05 PM CDT Body Mass Index 45.52 06/19/2023 1:05 PM CDT documented in this encounter Functional Status Functional Status Response [...] No 12/14/2022 documented as of this encounter Patient Instructions * Patient Instructions* Elis Milligan, HAT MAKER-DIRECTOR ORANGE - 06/19/2023 1:44 PM CDT POST OPERATIVE VISIT INSTRUCTIONS 6 Months Dietary Journaling helps keep you honest and on track! Calculate your protein grams every day. Females should have a minimum of 60 grams per day and men 80 grams per day. It is important that you are learning to eat to live and not live to eat. Food likely does not giveyou as much pleasure as it has in the past. Eating protein is not optional. Failure to follow the guidelines laid out in your dietary booklet can result in serious health problems. You should be getting close to tolerating 1 cup of food per meal. At least half of your meal shouldbe protein. You will notice that you can eat more soft foods (carbohydrates) than protein. Please be sure you are meeting your protein goals first before adding in many carbohydrates. You should be getting 64 ounces of water per day. Limit coffee to 1 to 2 cups per day. Meals should take a minimum of 30 minutes to consume. Do not graze on cheese, peanut butter and nuts to meet your protein goals. Drink liquid protein between meals for hunger. Protein bars are acceptable, however, make sure theyare not high in carbohydrates. For a list of acceptable supplements, please see the bobbin coil winder. For band patients, protein bars are recommended. May have gum and popcorn. Vitamins A current list of our vitamin recommendations will be provided to you at your request. Our recommendations do periodically change, if it is not provided at the time of your visit, please request an updated list at your next visit. Exercise There are no restrictions of any kind. Take one more step tomorrow than what you took today. If you find your weight loss slowing, consider changing your exercise routine. As your cardiovascular health improves, cross training will help you through any plateaus you may incur. Behavior Modification Visit the list of behaviors that helped contribute to your morbid obesity. Assess yourself or visitwith a friend on a regular basis to assure that the bad habits are not returning to your daily lives. Continue weighing weekly. General Medical If you begin finding your CPAP on the floor in the mornings, please contact your PCP to have a second night sleep study completed. It is possible that you need to have the pressures within your machine reduced. You should not stop wearing your CPAP without consulting your doctor. Vomiting is not normal. If you cannot attribute vomiting to something that you have done, please notify our office. For females control is strongly recommended for the first 18 months after surgery. Support groups are helpful and important in dealing with your disease, please attend them. Average weight loss is 1 to 2 pounds per week. Expect plateaus. Medications--General Information You should be able to tolerate your medications without difficulty. You should not vomit after taking medications. If this consistently occurring, please notify our office. Ulcer Prevention DO NOT SMOKE. If your return to smoking notify our office immediately. DO NOT TAKE NSAIDS. LIMIT ALCOHOL. Blood Pressure Medication If you consistently find yourself getting light headed when you go from a laying positions to a sitting position OR from a sitting position to a standing position, contact your primary care physicianfor a medication adjustment. Diabetic Medication Once your fasting blood sugar is less than 120 mg/dl for 3 consecutive mornings please notify your primary care physician for a medication adjustment. Psychiatric Medication If you do not feel well controlled on your current medication regimen, please call your primary care physician or psychiatrist for a medication adjustment. Depression after weight loss surgery is not uncommon even if you have never had problems with it inthe past. If you are experiencing problems, please contact someone for assistance. Follow-up For a Evelyn-en-Y divided gastric bypass, vertical sleeve gastrectomy or revision your next appointment will be in 6 months. Please notify us if you have any problems before your next appointment. Have labs drawn 2 weeks before your next visit. documented in this encounter Progress Notes * Elis Milligan APRN-CNP - 06/19/2023 1:30 PM CDT 6 Month Bariatric Surgery Follow up Date of Surgery: Laparoscopic sleeve gastrectomy ( Schwoerer ) ?? Date of Procedure: 12/14/2022 ?? Initial Weight: 340 ?? Todays Weight: 282 ?? Weight Lost: 58 lb ?? IBW: 155 ?? EBW: 185 ?? % of EBW loss: 31 % CC Leti Soto is here today for a 6 month postoperative follow up visit. Patient reports that overall she is doing well Patient is happy with their weight loss and the surgery Patient has been doing a food journal and eating 800-1000 per day Patient is eating 3 meals per day Patient is eating 1-2 snacks per day Patient is getting in all of the recommended protein Patient is getting in all of the recommended fluids, all calorie free She is exercising 4 days a week Patient is taking the recommended daily bariatric MVI, calcium citrate She has noticed more hair loss Patient has reflux and is continued on PPI daily, controls symptoms Patient denies any difficulty swallowing Patient denies any nausea, vomiting or abdominal pain Patient is moving her bowels regularly. Patient is continued on medication for depression / and is following with counselor as well Review of systems as above, the rest of systems were reviewed and are negative. BP 122/79 Pulse 73 Temp 98.8 ??F (37.1 ??C) (Temporal) Ht 1.676 m (5' 6 ) Wt 127.9 kg (282 lb) SpO2 97% BMI (Calculated): 45.54 Current Outpatient Medications Medication ??? buPROPion XL 24hr (WELLBUTRIN-XL) 300 MG tablet ??? FLUoxetine (PROZAC) 20 MG capsule ??? levonorgestrel (Mirena) 20 MCG/DAY IUD ??? omeprazole (PriLOSEC) 20 MG capsule No current facility-administered medications for this visit. Past Medical History: Diagnosis Date ??? BMI 50.0-59.9, adult (CMS/HCC) ??? Depression Post ??? NEGATIVE PAST MEDICAL HISTORY - SEE PROBLEM LIST Has the patient been readmitted to the hospital since the last follow up ? No Has the patient had any post bariatric surgical operations or interventions performed since the last follow up? No Physical Exam: General: Awake, alert, oriented to person,place and time. In no distress Neck: Supple, no JVD Lungs: Clear to ascultation, no wheezes or crackles Heart: RRR, S1S2 Abdomen: Soft, nontender, no hernias, BS + X all four quad Extremities: No edema x4, no erythema Assessment / Plan: S/P Laparoscopic sleeve gastrectomy ( Schwoerer ) Morbid Obesity - patient is down 31 % of EBW - patient has been referred to dietitian and counselor of further assistance, declined at this time - patient is to continue with a food journal - Exercise journal: Exercise: to include light weights 3-5 times /wk for 15- 30 min/day GERD: Continued on PPI Depression : - on Medication - following with a counselor Diet: Continue with 60 gms of protein, 64 oz fluid daily Eat slowly, taking 30 minutes to finish a meal Drink liquid protein between meals for hunger Follow dietary restrictions Support Groups: Encouraged to attend Vitamins: Recommend a bariatric multivitamin, Ca citrate with D 4959-6953 mg daily , Exercise: No restrictions as far as surgery is concerned. This will assist in continued weight lossand maintaining weight loss Labs: Will be checked today, orders placed - sleeve : CBC, CMP,Vitamin B1, B12 and vitamin D, iron , zinc Follow up: In 6 months with routine labs or sooner if needed Counseling included : Dietary education / exercise education / behavior modification CARLOS Casillas documented in this encounter Plan of Treatment Not on file documented as of this encounter Procedures Procedure Name Priority Date/Time Associated Diagnosis Comments IRON + TIBC PANEL Routine 06/21/2023 8:3 4 AM CDT Morbid obesity (HCC) Bariatric surgery status Vitamin deficiency Vitamin D deficiency ZINC BLOOD Routine 06/21/2023 8:33 AM CDT Morbid obesity (HCC) Bariatric surgery status Vitamin deficiency Vitamin D deficiency VITAMIN B1 Routine 06/21/2023 8:33 AM CDT Morbid obesity (HCC) Bariatric surgery status Vitamin deficiency Vitamin D deficiency VITAMIN D 25-HYDROXY Routine 06/21/2023 8:33 AM CDT Morbid obesity (HCC) Bariatric surgery status Vitamin deficiency Vitamin D deficiency CBC W/O DIFFERENTIAL Routine 06/21/2023 8:33 AM CDT Morbid obesity (HCC) Bariatric surgery status Vitamin deficiency Vitamin D deficiency COMPREHENSIVE METABOLIC PANEL Routine 06/21/2023 8:33 AM CDT Morbid obesity (HCC) Bariatric surgery status Vitamin deficiency Vitamin D deficiency VITAMIN B12 Routine 06/21/2023 8:33 AM CDT Morbid obesity (HCC) Bariatric surgery status Vitamin deficiency Vitamin D deficiency FERRITIN Routine 06/21/2023 8:33 AM CDT Morbid obesity (HCC) Bariatric surgery status Vitamin deficiency Vitamin D deficiency documented in this encounter Results * IRON + TIBC PANEL (06/21/2023 8:34 AM CDT) TIBC 255 250 - 450 ug/dL [facility] INSURANCE BILL UIBC 183 131 - 425 ug/dL [facility] INSURANCE BILL Iron 72 27 - 159 ug/dL [facility] INSURANCE BILL Iron Saturation 28 15 - 55 % [facility] INSURANCE BILL Comment:FASTING Blood BLOOD SPECIMEN / Unknown 06/21/2023 8:34 AM CDT 06/21/2023 Narrative Resulting Agency Comment Lab Testing performed at: [address] ??[facility]ly [facility], [facility] [id number] Elis Milligan HAT MAKER-DIRECTOR ORANGE LAB - CHEMIS TRY ORDERABLES [facility] INSURANCE BILL [address] [place] [address] * ZINC BLOOD (06/21/2023 8:33 AM CDT) Zinc, Plasma or Serum 74 44 - 115 ug/dL [facility] INSURANCE BILL Comment: ? Detection Limit = 5 FASTING Blood BLOOD SPECIMEN / Unknown 06/21/2023 8:33 AM CDT 06/21/2023 Narrative [facility] INSURANCE BILL - 06/28/2023 7:06 AM CDT Test(s) [id number], Plasma or Serum was developed and its performance characteristics determined by [facility]. It has not been cleared or approved by the Food and Drug Administration. Resulting Agency Comment Lab Testing performed at: [facility] [address] ??[facility] [id number] Elis Milligan HAT MAKER-[employer] LAB - CHEMIS TRY ORDERABLES Performing Organization Address City/[facility] Co de Phone Number [facility] BILL [address] [place] [address] * FERRITIN (06/21/2023 8:33 AM CDT) Ferritin 120 15 - 150 ng/mL [facility] INS[facility] BILL Comment:FASTING Blood BLOOD SPECIMEN / Unknown 06/21/2023 8:33 AM CDT 06/21/2023 Narrative Resulting Agency Comment Lab Testing performed at: [facility] [address] [facility] ??[facility], [phone] Elis Milligan HAT MAKER-DIRECTOR ORANGE LAB - CHEMIS TRY ORDERABLES Performing Organization Address [facility] Co de Phone Number [facility] INSURANCE BILL [address] [place] [address] * VITAMIN D 25-HYDROXY (06/21/2023 8:33 AM CDT) Vitamin D, 25 Hydroxy 54.0 30.0 - 100.0 ng/mL [facility] INS[facility]ANCE B[facility] Comment: Vitamin D deficiency has been defined by the [place] and an Endocrine Society practice guideline as a level of serum 25-OH vitamin D less than 20 ng/mL (1,2). The Endocrine Society went on to further define vitamin D insufficiency as a level between 21 and 29 ng/mL (2). 1. IOM ([place]). 2010. Dietary reference ?? intakes for calcium and D. [place]: The ?? National Academies Press. 2. Swathi MF, Sharon NC, Anthony ONEAL, et al. ?? Evaluation, treatment, and prevention of vitamin D ?? deficiency: an Endocrine Society clinical practice ?? guideline. JCEM. 2010; 96(7):1911-30. FASTING Blood BLOOD SPECIMEN / Unknown 06/21/2023 8:33 AM CDT 06/21/2023 Narrative Resulting Agency Comment Lab Testing performed at: [facility] [address] ??[facility], [facility] [id number] Elis Milligan [facility] LAB - CHEMIS TRY ORDERABLES Performing Organization Address City/[facility]/ZIP Co de Phone Number [facility] [address] [place] [address] * (ABNORMAL) VITAMIN B12 (06/21/2023 8:33 AM CDT) Vitamin B12 >2000(H) 232 - 1245 pg/mL [facility] Comment:FASTING Blood BLOOD SPECIMEN / Unknown 06/21/2023 8:33 AM CDT 06/21/2023 Narrative Resulting Agency Comment Lab Testing performed at: [facility] [address] ??[facility], [facility] [id number] Elis Milligan [facility] LAB - CHEMIS TRY ORDERABLES Performing Organization Address City/[facility] Co de Phone Number [facility] INSURANCE BILL [address] [place] [address] * VITAMIN B1 (06/21/2023 8:33 AM CDT) Vitamin B1 Whole Blood 124.5 66.5 - 200.0 nmol/L [facility] Comment:FASTING Blood BLOOD SPECIMEN / Unknown 06/21/2023 8:33 AM CDT 06/21/2023 Narrative [facility] INSURANCE BILL - 06/25/2023 2:06 PM CDT Test(s) [id number]. B1, Whole Blood was developed and its performance characteristics determined by [facility]. It has not been cleared or approved by the Food and Drug Administration. Resulting Agency Comment Lab Testing performed at: [address] ??[facility] [phone] Elis Milligan APRN-DIRECTOR ORANGE LAB - CHEMIS TRY ORDERABLES [facility] INSURANCE BILL [address] [place] [address] * (ABNORMAL) COMPREHENSIVE METABOLIC PANEL (06/21/2023 8:33 AM CDT) Glucose 76 70 - 99 mg/dL [facility] INSURANCE BILL BUN 13 6 - 20 mg/dL [facility] INSURANCE BILL Creatinine 0.66 0.57 - 1.00 mg/dL [facility] INSURANCE BILL eGFR by CKD-EPI 119 >59 mL/min/1.7 3 [facility] INSURANCE BILL BUN/Creatinine Ratio 20 9 - 23 [facility] INSURANCE BILL Sodium 140 134 - 144 mmol/L [facility] INSURANCE BILL Potassium 4.5 3.5 - 5.2 mmol/L [facility] INSURANCE BILL Chloride 103 96 - 106 mmol/L [facility] INSURANCE BILL CO2 21 20 - 29 mmol/L [facility] INSURANCE BILL Calcium 8.9 8.7 - 10.2 mg/dL [facility] INSURANCE BILL Protein Total 6.3 6.0 - 8.5 g/dL [facility] INSURANCE BILL Albumin 4.4 3.9 - 4.9 g/dL [facility] INSURANCE BILL Globulin Total 1.9 1.5 - 4.5 g/dL [facility] INSURANCE BILL Albumin/Globulin Ratio 2.3(H) 1.2 - 2.2 [facility] INSURANCE BILL Bilirubin Total 0.2 0.0 - 1.2 mg/dL [facility] INSURANCE BILL Alkaline Phosphatase 72 44 - 121 IU/L [facility] INSURANCE BILL AST 17 0 - 40 IU/L [facility] INSURANCE BILL ALT 12 0 - 32 IU/L [facility] INSURANCE BILL Comment:FASTING Blood BLOOD SPECIMEN / Unknown 06/21/2023 8:33 AM CDT 06/21/2023 Narrative Resulting Agency Comment Lab Testing performed at: [facility] ??[facility], [phone] Elis Milligan APRN-DIRECTOR ORANGE LAB - CHEMIS TRY ORDERABLES Performing Organization Address City/[facility]/ZIP Co de Phone Number [facility] INSURANCE BILL [address] [place] [address] * CBC W/O DIFFERENTIAL (06/21/2023 8:33 AM CDT) WBC 5.8 3.4 - 10.8 x10E3/uL [facility] INSURANCE BILL RBC 4.05 3.77 - 5.28 x10E6/uL [facility] INSURANCE BILL Hemoglobin 12.7 11.1 - 15.9 g/dL [facility] INSURANCE BILL Hematocrit 37.0 34.0 - 46.6 % [facility] INSURANCE BILL MCV 91 79 - 97 fL [facility] INSURANCE BILL MCH 31.4 26.6 - 33.0 pg [facility] INSURANCE BILL MCHC 34.3 31.5 - 35.7 g/dL [facility] INSURANCE BILL RDW 11.7 11.7 - 15.4 % [facility] INSURANCE BILL Platelet Count 231 150 - 450 x10E3/uL [facility] INSURANCE BILL nRBC NOT AVAILABLE [facility] INSURANCE BILL Comment: FASTING Result cannot be obtained for this observation. Blood BLOOD SPECIMEN / Unknown 06/21/2023 8:33 AM CDT 06/21/2023 Narrative Resulting Agency Comment Lab Testing performed at: [address] ??[facility], [id number] Elis Milligan APRN-DIRECTOR [employer]ANGE LAB - HEMATO LOGY ORDERABLES [facility] INSURANCE BILL [address] [place] [address] documented in this encounter Visit Diagnoses Diagnosis Morbid obesity (HCC)- Primary Morbid obesity Bariatric surgery status Vitamin deficiency Unspecified vitamin deficiency Vitamin D deficiency documented in this encounter Care Teams Live In Caregiver Relationship Specialty Start Date End Date VinceCrystal grigsby [address] [place] [address] PCP - General Nurse Practitioner 10/24/22 documented as of this encounter
--- OUTSIDE RECORDS SUMMARY | 2024-10-07 02:44 | XMS_ITS | Encounter Summary ---
Author Organization [facility] Address [address] [facility] [place] [address] Care Team Providers Care It Senior Software Engineer Java Name Role Phone Crystal Cedeno Primary Care Provider [phone] Reason for Visit * Reason Comments Refill Request Encounter Details Date Type Department Care Team (Late st Contact Info) Description 07/17/2023 Refill [facility] [id number] [place] [address] [place] [address] [address] Refill Request Social History Tobacco Use Types [...] and heating? Not hard at all 12/14/2022 [facility] Occupat ional Health - Occupational Stress [...] place to sleep or slept in a [place] facility (including now)? No 12/14/2022 Sex and Gender [...] on filedocumented in this encounter Care Teams It Senior Software Engineer Java Relationship Specialty Start Date End Date Crystal Cedeno [address] [place] [address] PCP - General Nurse Practitioner 10/24/22 documented as of this encounter
--- OUTSIDE RECORDS SUMMARY | 2024-10-07 02:44 | XMS_ITS | Encounter Summary ---
Author Organization [facility] Address [address] [facility] [place] [address] Care Team Providers Care Lasting Floorworker Name Role Phone Crystal Cedeno Primary Care Provider [phone] Reason for Visit * Reason Comments Refill Request Encounter Details Date Type Department Care Team (Late st Contact Info) Description 09/03/2024 Refill [facility] [id number] [place] [address] [address] [place] [address] Leti Hunt, LAWN SPRINKLER SERVICER-PASSENGER CAR CONDUCTOR [address] [facility] [address] [place] [address] Refill Request Social History Tobacco Use Types [...] and heating? Not hard at all 12/14/2022 [facility] [place] of Occupat ional Health - Occupational Stress [...] place to sleep or slept in a fpc (including now)? No 12/14/2022 Sex and Gender [...] on filedocumented in this encounter Care Teams Lasting Floorworker Relationship Specialty Start Date End Date Crystal Cedeno [address] [place] [address] PCP - General Nurse Practitioner 10/24/22 documented as of this encounter
--- OUTSIDE RECORDS SUMMARY | 2024-10-07 02:44 | XMS_ITS | Clinical Summary ---
Author Organization [facility] [employer] Address [address] [place] [address] Care Team Providers Care Cnc Operator Name Role Phone Crystal Cedeno Primary Care Provider [phone] Source Comments [facility],non-owned Affiliates and Associated Physician Practices is amultiple site organization consisting of ambulatory clinics and hospital sitesin [place], [place], [place] and [place]. This disclosure is being madepursuant to the Care Everywhere program and may not contain all information available regarding this patient. Last updated 18.[facility] [employer] Allergies Active Allergy Reactions Criticality Noted Date Comments Penicillins Rash Low 01/12/2016 Tramadol Other 03/22/2017 Shaky, increased heart rate, sweating. Medications * Be aware that medications may not be up to date on this document. Alwaysverify current medications with the patient. Medication Sig Dispensed Refills Start Date End Date Status buPROPion XL 24hr (WELLBUTRIN-XL) 300 MG tablet Take 1 (one) tablet by mouth every morning 02/26/2020 Active FLUoxetine (PROZAC) 20 MG capsule Take 3 (three) capsules by mouth once daily 03/05/2020 Active levonorgestrel (Mirena) 20 MCG/DAY IUD by Intrauterine route as directed Active omeprazole (PriLOSEC) 20 MG capsule TAKE 1 CAPSULE BY MOUTH DAILY BEFORE BREAKFAST 30 capsule 5 07/17/2023 Active pantoprazole EC (Protonix) 40 MG tablet TAKE 1 TABLET BY MOUTH TWICE DAILY 180 tablet 1 03/19/2024 Active Active Problems Problem Noted Date Diagnosed Date Anxiety and depression 07/02/2020 Encounter for induction of labor 05/07/2019 Status post fall 02/12/2019 Nausea/vomiting in 11/26/2018 Mitral valve prolapse 01/12/2016 Overview (02/06/2019): Dx in 2013; had palpitations. Started on metoprolol in 2013 and symptoms resolved. Never had hypertension. 01/21/2018: normal echo Irregular periods/menstrual cycles 01/12/2016 Situational anxiety 01/12/2016 Psychophysiological insomnia 01/12/2016 Morbid obesity due to excess calories 01/12/2016 BMI 40.0-44.9, adult 01/12/2016 Resolved Problems Problem Noted Date Diagnosed Date Resolved Date Sacroiliitis 11/04/2016 03/22/2017 Low back pain radiating to l eft lower extremity 11/04/2016 03/22/2017 Bug bite 08/02/2016 11/26/2018 Assessment & Plan (08/02/2016 10:41 AM RADIOACTIVITY TECHNICIAN): Persistent reaction to presumed bug bites Start short course Prednisone 20 MG daily for 7-10 days Can continue benadryl 25 MG -50 MG Q nightly and non-sedating loratadine , zyrtec, or sofia Advised washing bedding in hot water Bactrim added due to exposure to MRSA and some open sores Need for HPV vaccination 01/12/201612/2018 Assessment & Plan (08/02/2016 10:42 AM RADIOACTIVITY TECHNICIAN): Completed 3rd HPV today Encounters Date Type Department Care Team Description 09/03/2024 Refill [facility] Services [address] [facility], [place] [id number] Leti Hunt, SEA SHELL GATHERER-RURAL SOCIOLOGIST Refill Request from Last 3 Months Immunizations Name Administration Dates Next Due Covid [email or web address] primary monoval ent 12+ yr 0.3mL Purple cap 09/20/2020 Human Papilloma Virus Berto valent Vaccine 08/02/2016,02/19/2016,01/12/2016 INFLUENZA VACCINE 06/25/2018,06/25/2016 INFLUENZA VACCINE, QUADR. (F LUZONE; FLULAVAL; FLUARIX; AFLURIA QUADRIVALENT; 6MO+), 0.5 ML (IIV4) 07/18/2019,06/07/2017 MMR 05/10/2019(Deferred: See Comments - pt is rubella immune) TDAP (7yrs+) 05/10/2019(Deferred: See Comments - pt already had tdap this ),03/29/2019,08/13/2015 Family History Medical History Relation Name Comments Diabetes Father Heart Disease Father no [place] Hypertension Father Diabetes Maternal Grandfather Heart Disease Maternal Grandfather Anxiety Disorder Maternal Grandmother ago raphobia Depression Maternal Grandmother Anxiety Disorder Mother Depression Mother Cancer - Breast Other 2 maternal g reat aunts Cancer - Breast Paternal Grandmother Relation Name Status Comments Father Alive Maternal Grandfather Maternal Grandmother Mother Alive Other Paternal Grandmother Sister 1 Alive 1/2 sister Sister 2 Alive 1/2 sister Social History Tobacco Use Types Packs/Day Years Used Date Smoking Tobacco: Never Smokeless Tobacco: Never Tobacco Cessation:Counseling Given: Not Answered Alcohol Use Standard Drinks/Week Comments No 0 (1 standard drink = 0.6 oz pur e alcohol) Overall Financial Resource Strain (CARDIA) Answe r Date Recorded How hard is it for you to pa y for the very basics like food, housing, medical care, and heating? Not hard at all 12/14/2022 [facility] [place] of Occupat ional Health - Occupational Stress [...] place to sleep or slept in a snf (including now)? No 12/14/2022 Sex and Gender Information Value Date Recorded Sex Assigned at Female 01/03/2022 5:41 PM CDT Gender Identity Female 01/03/2022 5:41 PM CDT Sexual Orientation Bisexual 01/03/2022 5: 41 PM CDT Last Filed Vital Signs Vital Sign Reading Time Taken Comments Blood Pressure 122/79 06/19/2023 1:05 PM CDT Pulse 73 06/19/2023 1:05 PM CDT Temperature 37.1 ??C (98.8 ??F) 06/19/2023 1:05 PM CD T Respiratory Rate 18 2022 9:01 AM CDT Oxygen Saturation 97% 06/19/2023 1:05 PM CDT Inhaled Oxygen Concentration - - Weight 127.9 kg (282 lb) 06/19/2023 1:05 PM CDT Height 167.6 cm (5' 6 ) 06/19/2023 1:05 PM CDT Body Mass Index 45.52 06/19/2023 1:05 PM CDT Plan of Treatment Health Maintenance Due Date Last Done Comments HIV SCREENING 2005 HEPATITIS C SCREENING 12/10/2008 HEPATITIS B VACCINE (1 of 3 - 19+ 3-dose series) 2009 PAP SMEAR 02/18/2019 02/19/2016 COVID-19 VACCINE (2 - season) 2024 09/20/2020 INFLUENZA VACCINE (#1) 2024 , 06/27/2022, 07/18/2019, Additional history exists DEPRESSION SCREENING 09/25/2024 DTAP/TDAP/TD VACCINES (3 - Td or Tdap) 03/29/2029 03/29/2019, 08/13/2015 ZOSTER VACCINE (1 of 2) 2040 HPV VACCINE Completed 08/02/2016, 01/24, 01/12/2016 HIB VACCINE Aged Out No longer eligi ble based on patient's age to complete this topic MENINGOCOCCAL (Group B) VACCINE Aged Out No longer eligible based on patient's age to complete this topic MENINGOCOCCAL VACCINE Aged Out No padmini caty eligible based on patient's age to complete this topic PNEUMOCOCCAL VACCINE Aged Out No long er eligible based on patient's age to complete this topic Procedures Procedure Name Priority Date/Time Associated Diagnosis Comments PAP LB HPV HR DNA Routine 02/19/2016 11: 33 AM CDT Well woman exam with routine gynecological exam from Last 3 Months or Most Recently Relevant to Health Maintenance Results * PAP SMEAR LB HPV HR (PO REF LAB) (02/19/2016 11:33 AM CDT) Diagnosis [facility] ACCOUNT BILL Comment:NEGATIVE FOR INTRAEP ITHELIAL LESION AND MALIGNANCY. Specimen Adequacy [facility] ACCOUNT BILL Comment: Satisfactory for evaluation. ??Endocervical and/or squamous metaplastic cells (endocervical component) are present. Clinician Provided ICD10 [facility] ACCOUNT BILL Comment: Z23 Z01.419 N92.6 F41.8 E66.01 Z13.220 Performed by [facility] ACCOUNT BILL Comment:Dodie Andrade, Entrepreneurship Program Director ([facility]) Comment . [facility] ACCOUNT BILL Note [facility] ACCOUNT BILL Comment: The Pap smear is a screening test designed to aid in the detection of premalignant and malignant conditions of the uterine cervix. ??It is not a diagnostic procedure and should not be used as the sole means of detecting cervical cancer. ??Both false-positive and false-negative reports do occur. ? . Human papillomavirus High Risk Negative Negative [facility] ACCOUNT BILL Comment: This high-risk HPV test detects thirteen high-risk types (16/18/31/33/35/39/45/51/52/56/58/59/68) without differentiation. ?. Miscellaneous samples (specimen) MICROSCOPIC CYTOLOGIC EXAMINATION OF SMEAR OF SPECIMEN FROM FEMALE GENITAL TRACT PREPARED USING PAPANICOLAOU TECHNIQUE / Unknown 02/19/2016 11:33 AM CDT 02/20/2016 1:15 AM CDT Narrative [facility] ACCOUNT BILL - 02/25/2016 3:16 PM CDT Source.............Endocervical LMP / Prev Treat...None Other..............Oral Contraceptives No. of containers..01 [facility] Collection Vial Resulting Agency Comment [facility] [address] ??[place] [id number] Malena Munoz MD LAB - PATHOLOGY/CYTO LOGY ORDERABLES Performing Organization Address City/State/[facility] [[email or web address]] Co de Phone Number [facility] ACCOUNT BILL [address] [place] [address] from Last 3 Months or Most Recently Relevant to Health Maintenance Advance Directives * Full Code (Latest Code Status on File) Date Activated Date Inactivated Comments 12/14/2022 1:27 PM 2022 5:33 PM * Full Code Date Activated Date Inactivated Comments 05/07/2019 4:37 PM 05/11/2019 3:23 PM * Full Code Date Activated Date Inactivated Comments 04/04/2019 10:51 AM 04/04/2019 5:29 PM * Full Code Date Activated Date Inactivated Comments 11/26/2018 8:18 PM 11/26/2018 10:25 PM Care Teams Cnc Operator Relationship Specialty Start Date End Date VinceCrystal grigsby [address] [place] [id number] PCP - General Nurse Practitioner 10/24/22
--- OUTSIDE RECORDS SUMMARY | 2024-10-07 02:44 | XMS_ITS | Encounter Summary ---
Author Organization [facility] Address [address] [place] [address] Care Team Providers Care Insole Toe Snipping Machine Operator Name Role Phone Crystal Cedeno Primary Care Provider [phone] Encounter Details Date Type Department Care Team (Late st Contact Info) Description 01/09/2023 12:00 PM CDT Video Visit [facility] Services [address], [address] [place] [address] Bariatric surgery status Social History Tobacco Use Types Packs/Day Years [...] and heating? Not hard at all 12/14/2022 [facility] [place] of Occupat ional Health - Occupational Stress [...] place to sleep or slept in a jail (including now)? No 12/14/2022 Sex and Gender Information Value Date Recorded Sex Assigned at Female 01/03/2022 5:41 PM CDT Gender Identity Female 01/03/2022 5:41 PM CDT Sexual Orientation Bisexual 01/03/2022 5: 41 PM CDT documented as of this encounter Last Filed Vital Signs Vital Sign Reading Time Taken Comments Blood Pressure - - Pulse - - Temperature - - Respiratory Rate - - Oxygen Saturation - - Inhaled Oxygen Concentration - - Weight 148.3 kg (327 lb) 01/09/2023 12: 07 PM CDT Self reported 01/06 Height - - Body Mass Index 54.42 12/21/2022 9:41 AM CDT documented in this encounter Functional Status [...] No 12/14/2022 documented as of this encounter Progress Notes * Ayanna Vergara LPC - 01/09/2023 12:22 PM CDT Today's visit was conducted virtually due to COVID-19 countermeasures. The patient has given verbalconsent to have today's visit conducted by this same means with treatment provided remotely. The patient verbally consents to the billing and collection practices of the provider's medical group. Patient location: Home This encounter was performed using: Audio and Video Total time spent on visit on date of encounter is: 30 minutes with 30 minutes spent in medical discussion Patient met with provider per request. Patient is about 3 weeks post operative. She explained things have been good. She has noticed some difficulty in social situations because she has not told manypeople about her decision. She has also noticed having more time to think since being home on recovery and not knowing how to handle this quiet time. She reported in the past she may eat to resolve boredom but now there is no longer that desire. Instead, patient has been reading and catching up on television. When she is busy or out of the home she feels better because there is more distractions.Patient is looking forward to getting back to work in another week and a half. With regards to conversations about her weight loss and decision to have surgery, patient and provider discussed ways tonavigate difficult conversations. Overall, patient appears to be doing very well. Ayanna Alarcon LPC, CBC Licensed Professional Counselor Certified Bariatric Counselor Mental Health Review ?? Cleared, no additional MH visits required ___ ?? Not cleared, additional MH visit(s) required ___ ?? Continue with Medically Managed Diet visits ?? Bariatric Case Conference review required ___ ?? Follow up scheduled __X__ documented in this encounter Plan of Treatment Not on file documented as of this encounter Visit Diagnoses Diagnosis Bariatric surgery status- Primary documented in this encounter Care Teams Insole Toe Snipping Machine Operator Relationship Specialty Start Date End Date Crystal Cedeno [address] [place] [address] PCP - General Nurse Practitioner 10/24/22 documented as of this encounter
--- OUTSIDE RECORDS SUMMARY | 2024-10-07 02:44 | XMS_ITS | Encounter Summary ---
Author Organization [facility] Address [address] [facility] [place] [address] Care Team Providers Care Pick Up Truck Driver Name Role Phone Crystal Cedeno Primary Care Provider [phone] Reason for Visit * Reason Comments Diet Encounter Details Date Type Department Care Team (Late st Contact Info) Description 01/18/2023 9:30 AM CDT Video Visit [facility] [address] [place] [address], [address] [address] Morbid obesity (HCC) Social History Tobacco Use Types Packs/Day Years [...] and heating? Not hard at all 12/14/2022 [facility] [place] of Occupat ional Health - Occupational Stress [...] place to sleep or slept in a intermediate (including now)? No 12/14/2022 Sex and Gender [...] - Inhaled Oxygen Concentration - - Weight 148.4 kg (327 lb 3.2 oz) 023 10:52 AM CDT Height 167.6 cm (5' 6 ) 01/18/2023 10:5 2 AM CDT Body Mass Index 52.81 01/18/2023 10:52 AM CDT documented in this encounter Functional [...] as of this encounter Progress Notes * Mar House, ARABELLA/SHLOMO - 01/18/2023 10:53 AM CDT Today's visit was conducted virtually due to COVID-19 countermeasures. The patient has given verbalconsent to have today's visit conducted by this same means with treatment provided remotely. The patient verbally consents to the billing and collection practices of the provider's medical group. Patient location: Home This encounter was performed using: audio and video Total time spent on visit on date of encounter is: 60 minutes 1 Month Post-Operative Bariatric Surgery Class Date: 01/18/2023 Patient: Leti Soto Date of : 1990 (32 year old) PCP Physician: Crystal Cedeno Referring Physician: Maria T Surgeons: Anthony Martell MD Date of Surgery: 12/14/2022 Past Medical History: Diagnosis Date ??? BMI 50.0-59.9, adult (CMS/HCC) ??? Depression Post ??? NEGATIVE PAST MEDICAL HISTORY - SEE PROBLEM LIST Height: 167.6 cm (5' 6 ) Weight: (!) 148.4 kg (327 lb 3.2 oz) BMI (Calculated): 52.84 Pt feels like they are doing well overall: Y Pt moving bowels normally: Y Pt getting in 64 oz of fluid daily: Y Pt consuming 60 gm protein daily: Y Pt taking Prilosec: Y Incisions healed: Y Has pt had any N/V, reflux, or abdominal pain: N Has the patient been readmitted to the hospital since the last follow-up: N Has the patient had any post-bariatric surgical operations or interventions performed since the last follow-up: N *Information obtained from pt questionnaire, and reviewed by RN. Diet: Pt instructed to begin Bariatric Phase 3 diet, if not currently following Vitamins: Continue bariatric MVI, calcium citrate, and Prilosec Exercise: No restrictions General Medical: Pt encouraged to follow-up with PCP for medication adjustments PRN Labs: Will be checked 6 months, 1 year, and then annually Next visit: in 5 months with routine labs, or PRN Post-operative guidelines per [facility] [place] were reviewed with RD, including: post-surgery diet progression, post-surgery protein and fluid requirements, appropriate protein supplements, Bariatric vitamin/mineral supplement recommendations, Bariatric post-op concerns: dumping syndrome, nause a/vomiting, constipation, importance of routine activity, no alcohol/carbonation, and attending support group and tips for dining out and goals for a lifetime of success. RN addressed pt medical concerns as needed, including: Nausea, Vomiting, Diarrhea / Constipation, Abdominal Pain, Gas, Reflux, Dehydration, and Incisions - Non-healing or Drainage Pt verbalized understanding of concepts discussed Mar House RD/SHLOMO documented in this encounter Plan of Treatment Not on file documented as of this encounter Visit Diagnoses Diagnosis Morbid obesity (HCC)- Primary Morbid obesity documented in this encounter Care Teams Pick Up Truck Driver Relationship Specialty Start Date End Date PaoCrystal [address] [place] [address] PCP - General Nurse Practitioner 10/24/22 documented as of this encounter
--- OUTSIDE RECORDS SUMMARY | 2024-10-07 02:44 | XMS_ITS | Encounter Summary ---
Author Organization [facility] Address [address] [facility] [place] [address] Care Team Providers Care Water Mangle Tender Name Role Phone Crystal Cedeno Primary Care Provider [phone] Encounter Details Date Type Department Care Team (Late st Contact Info) Description 01/17/2023 Orders Only [facility] Weight Management Services [address] [place] [address], [address] [place] [address] Stephanie Edwards, RN Social History Tobacco Use Types Packs/Day Years [...] and heating? Not hard at all 12/14/2022 [facility] [place] of Occupat ional Health - Occupational Stress [...] place to sleep or slept in a half-way (including now)? No 12/14/2022 Sex and Gender [...] on filedocumented in this encounter Care Teams Water Mangle Tender Relationship Specialty Start Date End Date Pao Crystal [address] [place] [address] PCP - General Nurse Practitioner 10/24/22 documented as of this encounter
--- OUTSIDE RECORDS SUMMARY | 2024-10-07 02:44 | XMS_ITS | Referral Summary ---
Author Organization [facility] Address [address] [place] [address] Care Team Providers Care Government Program Manager Name Role Phone Crystal Cedeno Primary Care Provider [phone] Source Comments [facility],non-owned Affiliates and Associated Physician Practices is amultiple site organization consisting of ambulatory clinics and hospital sitesin [place], [place], [place] and [place]. This disclosure is being madepursuant to the Care Everywhere program and may not contain all information available regarding this patient. Last updated 18.[facility] Encounters Date Type Department Care Team Description 09/03/2024 Refill [facility] Weight Management Services [address] [place] [address], [address] [address] Leti Hunt APRN-CNP Refill Request from Last 3 Months Allergies Active Allergy Reactions Criticality Noted Date [...] 11/26/2018 Assessment & Plan (08/02/2016 10:41 AM RN LPN CNA): Persistent reaction to presumed bug bites Start short course Prednisone 20 MG daily for 7-10 days Can continue benadryl 25 MG -50 MG Q nightly and non-sedating loratadine , zyrtec, or sofia Advised washing bedding in hot water Bactrim added due to exposure to MRSA and some open sores Need for HPV vaccination 01/12/201612/2018 Assessment & Plan (08/02/2016 10:42 AM RN LPN CNA): Completed 3rd HPV today Immunizations Name Administration Dates Next Due [email or web address] primary monoval ent 12+ yr 0.3mL Purple cap 09/20/2020 Human Papilloma Virus Berto valent Vaccine 08/02/2016,02/19/2016,01/12/2016 INFLUENZA VACCINE 06/25/2018,06/25/2016 INFLUENZA VACCINE, QUADR. (F LUZONE; FLULAVAL; FLUARIX; AFLURIA QUADRIVALENT; 6MO+), 0.5 ML (IIV4) 07/18/2019,06/07/2017 MMR 05/10/2019(Deferred: See Comments - pt is rubella immune) TDAP (7yrs+) 05/10/2019(Deferred: See Comments - pt already had tdap this ),03/29/2019,08/13/2015 Social History Tobacco Use Types Packs/Day Years [...] and heating? Not hard at all 12/14/2022 [facility] [place] of Occupat ional Health - Occupational Stress [...] place to sleep or slept in a [facility] (including now)? No 12/14/2022 Sex and Gender [...] Mass Index 45.52 06/19/2023 1:05 PM CDT Functional Status Functional Status Response Date of [...] person have difficulty concentrating/remembering/making decisions? No 12/14/2022 Plan of Treatment Not on file Procedures Procedure Name Priority Date/Time Associated Diagnosis [...] Performed by [facility] ACCOUNT BILL Comment:Dodie Andrade, Hand Stitcher ([facility]) Comment . [facility] ACCOUNT BILL [...] Vial Resulting Agency Comment [facility] [address] [facility] ??[place]L [id number] Malena Munoz MD LAB - PATHOLOGY/CYTO LOGY ORDERABLES [facility] ACCOUNT BILL [address] [place] [address] from Last 3 Months or Most Recently [...] 8:18 PM 11/26/2018 10:25 PM Care Teams Government Program Manager Relationship Specialty Start Date End Date VinceCrystal grigsby [address] [place] [address] PCP - General Nurse Practitioner 10/24/22
--- OUTSIDE RECORDS SUMMARY | 2024-10-07 02:44 | XMS_ITS | Patient Health Summary ---
Author Organization [facility] Address [address] [address] Care Team Providers Care Candy Spreader Helper Name Role Phone Crystal Cedeno Primary Care Provider [phone] Note from [facility],non-owned Affiliates and Associated Physician Practices is amultiple site organization consisting of ambulatory clinics and hospital sitesin [place], [place], [place]. This disclosure is being madepursuant to the Care Everywhere program and may not contain all information available regarding this patient. Last updated 18.[facility] Allergies * Penicillins(Rash) -Low Criticality * Tramadol(Other) Medications * Be aware that medications may not be up to date on this document. Alwaysverify current medications with the patient. * buPROPion XL 24hr (WELLBUTRIN-XL) 300 MG tablet(Started 02/26/2020) Take 1 (one) tablet by mouth every morning * FLUoxetine (PROZAC) 20 MG capsule(Started 03/05/2020) Take 3 (three) capsules by mouth once daily * levonorgestrel (Mirena) 20 MCG/DAY IUD by Intrauterine route as directed * omeprazole (PriLOSEC) 20 MG capsule(Started 07/17/2023) TAKE 1 CAPSULE BY MOUTH DAILY BEFORE BREAKFAST 5 refills by 07/16/2024 * pantoprazole EC (Protonix) 40 MG tablet(Started 03/19/2024) TAKE 1 TABLET BY MOUTH TWICE DAILY 1 refill by 03/19/2025 Active Problems Problem Noted Date Diagnosed Date Anxiety and depression 07/02/2020 Encounter for induction of labor 05/07/2019 Status post fall 02/12/2019 Nausea/vomiting in 11/26/2018 Mitral valve prolapse 01/12/2016 Irregular periods/menstrual cycles 01/12/2016 Situational anxiety 01/12/2016 Psychophysiological insomnia 01/12/2016 Morbid obesity due to excess calories 01/12/2016 BMI 40.0-44.9, adult 01/12/2016 Resolved Problems Problem Noted Date Diagnosed Date Resolved Date Sacroiliitis 11/04/2016 03/22/2017 Low back pain radiating to l eft lower extremity 11/04/2016 03/22/2017 Bug bite 08/02/2016 11/26/2018 Need for HPV vaccination 01/12/201612/2018 Immunizations * Covid Pfizer primary monovalent 12+ yr 0.3mL Purple cap(Given 09/20/2020) * Human Papilloma Virus Quadrivalent Vaccine(Given 08/02/2016, 02/19/2016, 01/12/2016) * INFLUENZA VACCINE(Given 06/25/2018, 06/25/2016) * INFLUENZA VACCINE, QUADR. (FLUZONE; FLULAVAL; FLUARIX; AFLURIA QUADRIVALENT; 6MO+), 0.5 ML (IIV4)(Given 07/18/2019, 06/07/2017) * TDAP (7yrs+)(Given 03/29/2019, 08/13/2015) Social History Tobacco Use Types Packs/Day Years [...] and heating? Not hard at all 12/14/2022 [facility] Riddle of Occupat ional Health - Occupational Stress [...] the money to buy more. Never true 03/22/20 23 Within the past 12 months, t [...] place to sleep or slept in a mcc (including now)? No 12/14/2022 Sex and Gender [...] Mass Index 45.52 06/19/2023 1:05 PM CDT Procedures * IRON + TIBC PANEL(Performed 06/21/2023) Performed for Morbid obesity (HCC), Bariatric surgery status, Vitamin deficiency, Vitamin D deficiency * ZINC BLOOD(Performed 06/21/2023) Performed for Morbid obesity (HCC), Bariatric surgery status, Vitamin deficiency, Vitamin D deficiency * FERRITIN(Performed 06/21/2023) Performed for Morbid obesity (HCC), Bariatric surgery status, Vitamin deficiency, Vitamin D deficiency * VITAMIN D 25-HYDROXY(Performed 06/21/2023) Performed for Morbid obesity (HCC), Bariatric surgery status, Vitamin deficiency, Vitamin D deficiency * VITAMIN B12(Performed 06/21/2023) Performed for Morbid obesity (HCC), Bariatric surgery status, Vitamin deficiency, Vitamin D deficiency * VITAMIN B1(Performed 06/21/2023) Performed for Morbid obesity (HCC), Bariatric surgery status, Vitamin deficiency, Vitamin D deficiency * COMPREHENSIVE METABOLIC PANEL(Performed 06/21/2023) Performed for Morbid obesity (HCC), Bariatric surgery status, Vitamin deficiency, Vitamin D deficiency * CBC W/O DIFFERENTIAL(Performed 06/21/2023) Performed for Morbid obesity (HCC), Bariatric surgery status, Vitamin deficiency, Vitamin D deficiency * VITAMIN D 25-HYDROXY(Performed 02/25/2023) Performed for Morbid obesity (HCC), Bariatric surgery status, Vitamin deficiency, Vitamin D deficiency, Malaise and fatigue * VITAMIN B12(Performed 02/25/2023) Performed for Morbid obesity (HCC), Bariatric surgery status, Vitamin deficiency, Vitamin D deficiency, Malaise and fatigue * VITAMIN B1(Performed 02/25/2023) Performed for Morbid obesity (HCC), Bariatric surgery status, Vitamin deficiency, Vitamin D deficiency, Malaise and fatigue * COMPREHENSIVE METABOLIC PANEL(Performed 02/25/2023) Performed for Morbid obesity (HCC), Bariatric surgery status, Vitamin deficiency, Vitamin D deficiency, Malaise and fatigue * CBC W/O DIFFERENTIAL(Performed 02/25/2023) Performed for Morbid obesity (HCC), Bariatric surgery status, Vitamin deficiency, Vitamin D deficiency, Malaise and fatigue * FL UGI SERIES(Performed 2022) Performed for Morbid obesity due to excess calories (HCC) * VITAMIN D 25-HYDROXY(Performed 2022) * CBC W AUTO DIFFERENTIAL(Performed 2022) * BASIC METABOLIC PANEL (CALCIUM TOTAL)(Performed 2022) * GLUCOSE - POINT OF CARE(Performed 12/14/2022) * ENDOTRACHEAL TUBE NOTE(Performed 12/14/2022) * KS LAP SLEEVE GASTRECTOMY(Performed 12/14/2022) Performed for Morbid obesity with comorbidities * GLUCOSE - POINT OF CARE(Performed 12/14/2022) * POTASSIUM BLOOD(Performed 12/14/2022) Performed for Pre-op evaluation * HCG URINE QUALITATIVE(Performed 12/14/2022) Performed for Pre-op evaluation * VITAMIN B12(Performed 12/07/2022) Performed for Pre-op evaluation * VITAMIN B1(Performed 12/07/2022) Performed for Pre-op evaluation * COMPREHENSIVE METABOLIC PANEL(Performed 12/07/2022) Performed for Pre-op evaluation * CBC W AUTO DIFFERENTIAL(Performed 12/07/2022) Performed for Pre-op evaluation * EKG 12-LEAD(Performed 12/07/2022) Performed for Pre-op evaluation * HCG URINE QUAL POCT NOTIFICATION(Performed 11/17/2022) Performed for Preoperative examination * KS ED EGD FLEX TRANSORAL DX(Performed 11/17/2022) * HELICOBACTER PYLORI UREASE (STL)(Performed 11/17/2022) Performed for Preop examination * EGD(Performed 11/17/2022) Performed for Morbid obesity due to excess calories (HCC), Preop testing, BMI 50.0-59.9, adult (HCC) * HCG URINE QUALITATIVE - POCT (IP) INTERFACED(Performed 11/17/2022) * FL UGI SERIES(Performed 10/24/2022) Performed for Morbid obesity due to excess calories (HCC), Preop testing, BMI 50.0-59.9, adult (HCC) * CBC W AUTO DIFFERENTIAL(Performed 11/04/2020) Performed for Morbid obesity due to excess calories (HCC), Low back pain radiating to left lower extremity, Anxiety and depression * URIC ACID BLOOD(Performed 11/04/2020) Performed for Morbid obesity due to excess calories (HCC), Anxiety and depression * MAGNESIUM BLOOD(Performed 11/04/2020) Performed for Morbid obesity due to excess calories (HCC), Anxiety and depression * LIPID PROFILE(Performed 11/04/2020) Performed for Morbid obesity due to excess calories (HCC), Anxiety and depression * COMPREHENSIVE METABOLIC PANEL(Performed 11/04/2020) Performed for Morbid obesity due to excess calories (HCC), Anxiety and depression * HEMOGLOBIN A1C(Performed 11/04/2020) Performed for Morbid obesity due to excess calories (HCC), Anxiety and depression * SARS-COV-2 (COVID-19) IN HOUSE(Performed 09/28/2020) Performed for Contact with or exposure to viral disease * SARS-COV2 (COVID-19) PANEL (STL)(Performed 09/28/2020) Performed for Contact with or exposure to viral disease * SARS-COV-2 (COVID-19) IN HOUSE(Performed 08/19/2020) Performed for Exposure to COVID-19 virus * SARS-COV-2 (COVID-19) IN HOUSE(Performed 06/29/2020) Performed for Sore throat * URIC ACID BLOOD(Performed 04/08/2020) Performed for Morbid obesity due to excess calories ([facility]LY [facility]), Low back pain radiating to left lower extremity * TSH REFLEX FREE T4(Performed 04/08/2020) Performed for Morbid obesity due to excess calories (HCC), Low back pain radiating to left lower extremity * MAGNESIUM BLOOD(Performed 04/08/2020) Performed for Morbid obesity due to excess calories (HCC), Low back pain radiating to left lower extremity * LIPID PROFILE(Performed 04/08/2020) Performed for Morbid obesity due to excess calories (HCC), Low back pain radiating to left lower extremity * HEMOGLOBIN A1C(Performed 04/08/2020) Performed for Morbid obesity due to excess calories (HCC), Low back pain radiating to left lower extremity * COMPREHENSIVE METABOLIC PANEL(Performed 04/08/2020) Performed for Morbid obesity due to excess calories (HCC), Low back pain radiating to left lower extremity * CBC W AUTO DIFFERENTIAL(Performed 04/08/2020) Performed for Morbid obesity due to excess calories ([facility]), Low back pain radiating to left lower extremity * IMAGING/RADIOLOGY/XRAY RESULTS ORDER(Performed 05/13/2019) * IMAGING/RADIOLOGY/XRAY RESULTS ORDER(Performed 05/10/2019) * CBC W AUTO DIFFERENTIAL(Performed 05/10/2019) * GLUCOSE - POINT OF CARE(Performed 05/09/2019) * PATHOLOGY TISSUE EXAM (STL)(Performed 05/09/2019) Performed for Encounter for induction of labor ([facility]) * BLOOD GASES CORD MARQUES (ISTAT)(Performed 05/09/2019) * NEURAXIAL BLOCK(Performed 05/08/2019) * BLOOD TYPE VERIFICATION(Performed 05/07/2019) * TYPE + SCREEN PANEL(Performed 05/07/2019) * CBC W AUTO DIFFERENTIAL(Performed 05/07/2019) * NONSTRESS TEST(Performed 04/22/2019) * GLUCOSE - POINT OF CARE(Performed 04/04/2019) * US OB LIMITED(Performed 02/12/2019) Performed for Status post fall * NONSTRESS TEST(Performed 02/12/2019) * ECHOCARDIOGRAM 2D WITH DOPPLER(Performed 02/04/2019) Performed for Mitral valve prolapse * EKG 12-LEAD(Performed 01/21/2019) Performed for Mitral valve prolapse * CULTURE URINE(Performed 07/02/2018) Performed for Acute cystitis with hematuria * HCG URINE QUALITATIVE - POINT OF CARE (AMB) STL(Performed 07/02/2018) Performed for Missed period * URINALYSIS AUTO - POINT OF CARE (AMB) STL(Performed 07/02/2018) Performed for Urinary frequency * URINALYSIS AUTO - POINT OF CARE (AMB) STL(Performed 10/01/2017) Performed for Urinary tract infection without hematuria, site unspecified * EKG 12-LEAD(Performed 04/12/2017) * PT-INR(Performed 03/22/2017) Performed for Easy bruising * HEMOGLOBIN A1C(Performed 03/22/2017) Performed for Physical exam, routine, BMI 45.0-49.9, adult ([facility]), Screening for diabetes mellitus * THYROID CASCADE PROFILE(Performed 03/22/2017) Performed for Physical exam, routine, Easy bruising * LIPID PROFILE REFLEX LDL DIRECT(Performed 03/22/2017) Performed for Physical exam, routine, BMI 45.0-49.9, adult ([facility]), Screening for lipid disorders * COMPREHENSIVE METABOLIC PANEL(Performed 03/22/2017) Performed for Physical exam, routine * CBC W AUTO DIFFERENTIAL(Performed 03/22/2017) Performed for Physical exam, routine, Easy bruising * XR LUMBAR SPINE 2 OR 3VW(Performed 11/04/2016) Performed for Sacroiliitis (HCC), Low back pain radiating to left lower extremity * PAP LB HPV HR DNA(Performed 02/19/2016) Performed for Well woman exam with routine gynecological exam * HCG URINE QUALITATIVE - POINT OF CARE (AMB) STL(Performed 01/12/2016) Performed for Irregular periods/menstrual cycles * VARICELLA ZOSTER ANTIBODY IGG(Performed 08/18/2015) * HEPATITIS B SURFACE ANTIBODY(Performed 08/18/2015) Results * IRON + TIBC PANEL (06/21/2023 8:34 AM CDT) TIBC 255 250 - 450 ug/dL [facility] INSURANCE BILL UIBC 183 131 - 425 ug/dL [facility] INSURANCE BILL Iron 72 27 - 159 ug/dL [facility] INSURANCE BILL Iron Saturation 28 15 - 55 % [facility] INSURANCE BILL Comment:FASTING Blood BLOOD SPECIMEN / Unknown 06/21/2023 8:34 AM CDT 06/21/2023 Narrative Resulting Agency Comment Lab Testing performed at: [facility] ??[facility] [phone] Elis Milligan [facility] TR[facility] ORDERABLES Performing Organization Address [facility] de Phone Number [facility] INSURANCE BILL [address] [place] [address] * ZINC BLOOD (06/21/2023 8:33 AM CDT) [facility] Zinc, Plasma or Serum 74 44 - 115 ug/dL [facility] INSURANCE BILL Comment: ? Detection Limit = 5 FASTING Blood BLOOD SPECIMEN / Unknown 06/21/2023 8:33 AM CDT 06/21/2023 Narrative [facility] INSURANCE BILL - 06/28/2023 7:06 AM CDT Test(s) [id number], Plasma or Serum was developed and its performance characteristics determined by [employer]. It has not been cleared or approved by the Food and Drug Administration. Resulting Agency Comment Lab Testing performed at: [address] ??[facility] [phone] Elis Milligan [facility] TRY ORDERABLES Performing Organization Address [facility] de Phone Number [facility] INSURANCE BILL [address] [place] [address] * VITAMIN B1 (06/21/2023 8:33 AM CDT) Only the most recent of3 resultswithin the time period is included. [facility] Vitamin B1 Whole Blood 124.5 66.5 - 200.0 nmol/L [facility] INSURANCE BILL Comment:FASTING Blood BLOOD SPECIMEN / Unknown 06/21/2023 8:33 AM CDT 06/21/2023 Narrative [facility] INSURANCE BILL - 06/25/2023 2:06 PM CDT Test(s) [id number]. B1, Whole Blood was developed and its performance characteristics determined by [employer]. It has not been cleared or approved by the Food and Drug Administration. Resulting Agency Comment Lab Testing performed at: [employer] ??[facility] [phone] Elis Milligan APRN-[facility] - CHEMIS TRY ORDERABLES [facility] INSURANCE BILL [address] [place] [address] * VITAMIN D 25-HYDROXY (06/21/2023 8:33 AM CDT) Only the most recent of3 resultswithin the time period is included. Pathologist [facility] Vitamin D, 25 Hydroxy 54.0 30.0 - 100.0 ng/mL [facility] INSURANCE BILL Comment: Vitamin D deficiency has been defined by the Riddle of Medicine and an Endocrine Society practice guideline as a level of serum 25-OH vitamin D less than 20 ng/mL (1,2). The Endocrine Society went on to further define vitamin D insufficiency as a level between 21 and 29 ng/mL (2). 1. IOM (Riddle of Medicine). 2010. Dietary reference ?? intakes for calcium and D. Agu[place]: The ?? National AcademSolyndra Press. 2. Swathi MF, Sharon NC, Anthony ONEAL, et al. ?? Evaluation, treatment, and prevention of vitamin D ?? deficiency: an Endocrine Society clinical practice ?? guideline. JCEM. 2010; 96(7):1911-30. FASTING Blood BLOOD SPECIMEN / Unknown 06/21/2023 8:33 AM CDT 06/21/2023 Narrative Resulting Agency Comment Lab Testing performed at: [facility] [address] [facility] ??[facility] [phone] Elis BOUCHERGUNSMITH APPRENTICE LAB - CHEMIS TRY ORDERABLES Performing Organization Address City/[facility] Co de Phone Number [facility] INSURANCE BILL [address] [place] [address] * CBC W/O DIFFERENTIAL (06/21/2023 8:33 AM CDT) Only the most recent of2 resultswithin the time period is included. WBC 5.8 3.4 - 10.8 x10E3/uL [facility] [...] Resulting Agency Comment Lab Testing performed at: [facility] [place] [address] [facility] ??[facility] [phone] Elis BOUCHERGUNSMITH APPRENTICE LAB - HEMATO LOGY ORDERABLES Performing Organization Address City/[facility]/ZIP Co de Phone Number [facility] INSURANCE BILL [address] [place] [address] * (ABNORMAL) COMPREHENSIVE METABOLIC PANEL (06/21/2023 8:33 AM CDT) Only the most recent of6 resultswithin the time period is included. Glucose 76 70 - 99 mg/dL [facility] [...] Resulting Agency Comment Lab Testing performed at: [facility] [address] ??[facility] [phone] Elis Milligan BACK SEWER-[facility]ICE LAB - CHEMIS TRY ORDERABLES [facility] INSURANCE BILL [address] [place] [address] * (ABNORMAL) VITAMIN B12 (06/21/2023 8:33 AM CDT) Only the most recent of3 resultswithin the time period is included. Vitamin B12 >2000(H) 232 - 1245 pg/mL [facility] INSURANCE BILL Comment:FASTING Blood BLOOD SPECIMEN / Unknown 06/21/2023 8:33 AM CDT 06/21/2023 Narrative Resulting Agency Comment Lab Testing performed at: [facility] [address] ??[facility] [phone] Elis Milligan BACK SEWER-[facility]UNSM[facility] APPRENTICE LAB - CHEMIS TRY ORDERABLES [facility] [address] [place] [address] * FERRITIN (06/21/2023 8:33 AM CDT) Ferritin 120 15 - 150 ng/mL [facility] INSURANCE BILL Comment:FASTING Blood BLOOD SPECIMEN / Unknown 06/21/2023 8:33 AM CDT 06/21/2023 Narrative Resulting Agency Comment Lab Testing performed at: [place] [address] ??[facility] [phone] Elis Holliday Srini BACK SEWER-GUNSMITH APPRENTICE LAB - CHEMIS TRY ORDERABLES Performing Organization Address City/[facility]/ZIP Co de Phone Number [facility] [address] [place] [address] * FL UGI SERIES WO KUB (2022 9:51 AM CDT) Only the most recent of2 resultswithin the time period is included. Anatomical Region Laterality Modality Abdomen Radiographic Laure ging 2022 10:0 2 AM CDT Impressions 2022 10:04 AM CDT Impression: No evidence of ??leak or obstruction. > Interpreting Provider: Steven Vee MD on 2022 10:04 AM Narrative 2022 10:04 AM CDT Fluoroscopic upper GI with KUB Indication: Morbid obesity, status post sleeve partial gastrectomy gastric bypass surgery, gastric leak. Findings: Multiple fluoroscopic images of the upper GI tract were obtained following ingestion of water-soluble oral contrast media. There is no evidence of leak. There is prompt emptying into the duodenum. The total fluoroscopy time was 139 seconds. 3 fluoroscopic images were obtained. Cineradiography was also performed. FLUOROSCOPY DOSE: ??10.27 mGy Reference air kerma (ka,r). Procedure Note Steven Vee MD - 2022 Fluoroscopic upper GI with KUB Indication: Morbid obesity, status post sleeve partial gastrectomygastric bypass surgery, gastric leak. Findings: Multiple fluoroscopic images of the upper GI tract were obtainedfollowing ingestion of water-soluble oral contrast media. There is no evidence of leak. There is prompt emptying into the duodenum. The total fluoroscopy time was 139 seconds. 3 fluoroscopic images were obtained. Cineradiography was also performed. FLUOROSCOPY DOSE: 10.27mGy Reference air kerma (ka,r). Impression: No evidence of leak or obstruction. > Interpreting Provider: Steven Vee MD on 2022 10:04 AM Anthony Martell MD FLUOROSCOPY ORDERABL ES * (ABNORMAL) CBC W AUTO DIFFERENTIAL (2022 4:37 AM CDT) Only the most recent of7 resultswithin the time period is included. WBC 10.6 4.4 - 10.7 x10E9/L 2022 5:33 AM CDT [facility] WBC Corrected 2022 5:33 AM CDT [facility] RBC 3.85 3.80 - 5.20 x10E12/L 2022 5:33 AM CDT [facility] Hemoglobin 11.6(L) 12.0 - 15.6 gm/dL 2022 5:33 AM CDT [facility] Hematocrit 35.2(L) 35.9 - 45.5 % 2022 5:33 AM CDT [facility] MCV 91.4 80.7 - 98.3 fl 2022 5:33 AM CDT [facility] MCH 30.1 26.7 - 34.0 pg 2022 5:33 AM CDT [facility] MCHC 33.0 30.8 - 35.9 gm/dL 2022 5:33 AM CDT [facility] Platelet Count 267 153 - 416 x10E9/L 2022 5:33 AM CDT [facility] RDW-CV 12.1 12.1 - 14.9 % 2022 5:33 AM CDT [facility] MPV 10.3 9.4 - 12.9 fl 2022 5:33 AM CDT [facility] Neutrophils % 68.4 44.0 - 73.0 % 2022 5:33 AM CDT [facility] Lymphocytes % 22.7 20.0 - 43.0 % 2022 5:33 AM CDT [facility] Monocytes % 7.8 5.0 - 13.0 % 2022 5:33 AM CDT [facility] Eosinophils % 0.3 0.0 - 6.0 % 2022 5:33 AM CDT [facility] Basophils % 0.5 0.0 - 2.0 % 2022 5:33 AM CDT [facility] Immature Granulocytes 0.3 0 - 1 % 2022 5:33 AM CDT [facility] Neutrophil Absolute 7.28(H) 2.01 - 7.14 x10E9/L 2022 5:33 AM CDT [facility] Lymphocytes Absolute 2.42 1.07 - 3.94 x10E9/L 2022 5:33 AM CDT [facility] Monocytes Absolute 0.83 0.26 - 1.07 x10E9/L 2022 5:33 AM CDT [facility] Eosinophils Absolute 0.03 0 - 0.47 x10E9/L 2022 5:33 AM CDT [facility] Basophils Absolute 0.05 0 - 0.08 x10E9/L 2022 5:33 AM CDT [facility] Immature Granulocytes Absolute 0.03 0.00 - 0.06 x10E9/L 2022 5:33 AM CDT [facility] nRBC Auto 0 /100 WBC 2022 5:33 AM CDT [facility] Blood BLOOD SPECIMEN / Unknown Venipuncture / Unknown 2022 4:37 AM CDT 2022 5:16 AM CDT Anthony Martell MD LAB - HEMATOLOGY ORD ERABLES [facility] [address] [place] [address] * (ABNORMAL) BASIC METABOLIC PANEL (CALCIUM TOTAL) (2022 4:37 AM CDT) Pathologist [facility] Glucose 87 70 - 105 mg/dL 2022 5:44 AM CDT [facility] Sodium 138 136 - 145 mmol/L 2022 5:44 AM CDT [facility] Potassium 4.0 3.5 - 5.1 mmol/L 2022 5:44 AM CDT [facility] Chloride 107 98 - 107 mmol/L 2022 5:44 AM CDT [facility] CO2 23 23 - 31 mmol/L 2022 5:44 AM CDT [facility] Calcium 8.7 8.4 - 10.4 mg/dL 2022 5:44 AM CDT [facility] Anion Gap 8 8 - 18 mmol/L 2022 5:44 AM CDT [facility] BUN 8 7 - 18.7 mg/dL 2022 5:44 AM CDT [facility] Creatinine 0.56(L) 0.57 - 1.11 mg/dL 2022 5:44 AM CDT [facility] eGFR by CKD-EPI >90 >=90 mL/min/1.7 3 m2 2022 5:44 AM CDT [facility] Blood BLOOD SPECIMEN / Unknown Venipuncture / Unknown 2022 4:37 AM CDT 2022 5:16 AM CDT Anthony Martell MD LAB - CHEMISTRY ESPERANZA VELASCO [facility] [address] [place] [address] * (ABNORMAL) GLUCOSE - POINT OF CARE (12/14/2022 11:02 PM CDT) Only the most recent of4 resultswithin the time period is included. Glucose WB/POC 122(H) 70 - 106 mg/dL 2022 12:31 AM CDT [facility] Specimen Type Cap Fingerstick 2022 12:31 AM CDT [facility] Blood BLOOD SPECIMEN / Unknown 12/14/2022 11:02 PM CDT 2022 12:31 AM CDT Anthony Martell MD LAB - POINT OF CARE ORDERABLES [facility] [address] [place] [address] * ETT LINE PERFORMABLE (12/14/2022 11:32 AM CDT) Narrative Ana Culver APRN-CRNA - 12/14/2022 11:32 AM CDT Aan Culver APRN-CRNA ? 12/14/2022 11:33 AM Endotracheal Tube Placement: ? Patient Location: OR. Intubation Event Date/Time: ??12/14/2022 11:09 AM Procedure: intubation (86021). Procedure Section: ?? Sedation: under general anesthesia. Indications for Airway Management: ??anesthesia Induction: standard IV Patient Position: ??sniffing and ramp/troop pillow Mask Ventilation: easy with oral airway. Blade Type: Garsia Blade Size: 2 Laryngoscopy View: grade 1 (full cords) Intubation Adjuncts: stylet Tube: endotracheal tube Placement: oral Tube type: cuff - inflated Tube Size (MM): 7 Depth of Insertion (CM): 22 Measured From: lips Cuff Inflated With: air Number of Attempts: 1. Placement Verified By: direct visualization, bilateral breath sounds, chest auscultation and CO2 monitor Tube secured with: ??adhesive tape. Dentition unchanged? ??Yes Difficult Airway? ??No. Procedure Start Time: 12/14/2022 11:09 AM. Staff Section ? Anesthesia Provider: Ana Culver APRN-CRNA ? Provider #1: Ramya Tavera RN, Performed the procedure. Additional Comments: Successful DL x1 attempt by SRNA. Arti Lips and teeth as preop. Orly Hobbs DO GENERAL ANESTHESIA O RDERABLES * POTASSIUM BLOOD (12/14/2022 9:16 AM CDT) [facility] Potassium 4.7 3.5 - 5.1 mmol/L 12/14/2022 9:46 AM CDT [facility] Blood BLOOD SPECIMEN / Unknown Venipuncture / Unknown 12/14/2022 9:16 AM CDT 12/14/2022 9:34 AM CDT Orly Hobbs DO LAB - CHEMISTRY ORDE RABLES [facility] [address] [place] [address] * HCG URINE QUALITATIVE (12/14/2022 9:15 AM CDT) [facility] hCG Qualitative Urine Negative Negative 12/14/2022 9:39 AM CDT [facility] Urine URINE / Unknown Collection / Unknown 12/14/2022 9:15 AM CDT 12/14/2022 9:35 AM CDT Orly Hobbs DO LAB - URINALYSIS ORD ERABLES Performing Organization Address [facility] Co de Phone Number [facility] [address] [place] [address] * EKG 12-LEAD (12/07/2022 12:25 PM CDT) Only the most recent of3 resultswithin the time period is included. [facility] Ventricular Rate 75 BPM [facility] Atrial Rate 75 BPM [facility] P-R Interval 150 ms [facility] QRS Duration ms 84 ms [facility] Q-T Interval ms 358 ms [facility] QTC Calculation (Bezet) 399 ms [facility] Calculated P [place] 33 degrees [facility] Calculated R [place] 38 degrees [facility] Calculated T [place] 53 degrees [facility] Interpretation EKG Normal sinus rhythm Normal ECG No previous ECGs available Confirmed by FREDDIE PRETTY, RAKESH GRAYSON ([id number]) on 12/08/2022 11:44:01 AM [facility] MUSE 12/07/2022 12:2 5 PM CDT 12/08/2022 11:44 AM CDT Anthony Martell MD ECG ORDERABLES Performing Organization Address [facility] Phone Number [facility] * HCG URINE QUAL POCT NOTIFICATION (11/17/2022 8:02 AM SALES ADVISORY MANAGER) Comment Notification Label Only - See Separate Report 11/17/2022 8:02 AM SALES ADVISORY MANAGER [facility] Urine URINE / Unknown 6:47 AM SALES ADVISORY MANAGER Anthony Martell MD LAB - URINALYSIS ORD ERABLES Performing Organization Address [facility] Phone Number [facility] [address] [place] [address] [phone] * HELICOBACTER PYLORI UREASE (STL) (11/17/2022 7:29 AM SALES ADVISORY MANAGER) Helicobacter pylori Urease Initial Negative Negative 11/18/2022 9:43 AM SALES ADVISORY MANAGER [facility] Helicobacter pylori Urease Final Negative Negative 11/18/2022 9:43 AM SALES ADVISORY MANAGER [facility] Comment:This is an appended report. These results have been appended to a previously preliminary verified report. Microbiology GASTRIC ANTRAL BIOPSY SPECIMEN / Unknown 11/17/2022 7:29 AM SALES ADVISORY MANAGER 11/17/2022 12:29 PM SALES ADVISORY MANAGER Anthony Martell MD LAB - MICROBIOLOGY O RDERABLES Performing Organization Address [facility] de Phone Number [facility] [id number] [place] [id number] * EGD (11/17/2022 6:58 AM SALES ADVISORY MANAGER) Report Endoscopy POC __ _ Patient Name: Leti Cortes ? Procedure Date: 11/17/2022 6:58 AM ? Date of : 1990 ?Admit Type: Outpatient Age: 31 ? Gender: Female Attending MD: Anthony Martell MD ?? __ _ Procedure: ? Upper GI endoscopy Indications: ? Heartburn, Preoperative assessment for bariatric ? surgery to treat morbid obesity Providers: ? Anthony Martell MD (Doctor) Referring MD: ?Crystal Cedeno NP (Referring MD) Medicines: ? Monitored Anesthesia Care Complications: ? No immediate complications. __ _ Estimated Blood Loss: ? Estimated blood loss was minimal. Procedure: ? Pre-Anesthesia Assessment: ? - Prior to the procedure, a History and Physical was ? performed, and patient medications and allergies were ? reviewed. The patient's tolerance of previous ? anesthesia was also reviewed. The risks and benefits ? of the procedure and the sedation options and risks ? were discussed with the patient. All questions were ? answered, and informed consent was obtained. Prior ? Anticoagulants: The patient has taken no previous ? anticoagulant or antiplatelet agents. ASA Grade ? Assessment: III - A patient with severe systemic ? disease. After reviewing the risks and benefits, the ? patient was deemed in satisfactory condition to ? undergo the procedure. ? After obtaining informed consent, the endoscope was ? passed under direct vision. Throughout the procedure, ? the patient's blood pressure, pulse, and oxygen ? saturations were monitored continuously. The Endoscope ? was introduced through the mouth, and advanced to the ? second part of duodenum. The upper GI endoscopy was ? accomplished without difficulty. The patient tolerated ? the procedure well. ? Findings: ? A 2 cm hiatal hernia was present. ? The gastroesophageal flap valve was visualized endoscopically and ? classified as Hill Grade III (minimal fold, loose to endoscope, hiatal ? hernia likely). ? Localized minimal inflammation was found in the gastric antrum. Biopsies ? were taken with a cold forceps for Helicobacter pylori testing using ? CLOtest. Estimated blood loss was minimal. ? The first portion of the duodenum and second portion of the duodenum ? were normal. __ _ ? Impression: ?- 2 cm hiatal hernia. ? - Gastroesophageal flap valve classified as Hill Grade ? III (minimal fold, loose to endoscope, hiatal hernia ? likely). ? - Gastritis. Biopsied. ? - Normal first portion of the duodenum and second ? portion of the duodenum. Recommendation: ?- Discharge patient to home. ? - Resume previous diet. ? - Continue present medications. ? - Await pathology results. ? Procedure Code(s): ? --- Professional --- ? 04332, Esophagogastroduode noscopy, flexible, transoral; with biopsy, ? single or multiple ? --- Technical --- ? 27511, Esophagogastroduode noscopy, flexible, transoral; with biopsy, ? single or multiple Diagnosis Code(s): ? --- Professional --- ? K44.9, Diaphragmatic hernia without obstruction or gangrene ? K29.70, Gastritis, unspecified, without bleeding ? R12, Heartburn ? E66.01, Morbid (severe) obesity due to excess calories ? Z01.818, Encounter for other preprocedural examination ? --- Technical --- ? K44.9, Diaphragmatic hernia without obstruction or gangrene ? K29.70, Gastritis, unspecified, without bleeding ? R12, Heartburn ? E66.01, Morbid (severe) obesity due to excess calories ? Z01.818, Encounter for other preprocedural examination CPT copyright 2019 [employer]. All rights reserved. The codes documented in this report are preliminary and upon national investigative producer review may be revised to meet current compliance requirements. Anthony Martell _ Anthony Martell MD 11/17/2022 7:30:13 AM This report has been signed electronically. Number of Addenda: 0 Note Initiated On: 11/17/2022 6:58 AM [facility] 11/17/2022 6:58 AM SALES ADVISORY MANAGER Narrative Procedure Note Anthony Martell MD - 11/17/2022 7:30 AM CST EGD completed. Gastritis, 2 cm HH, hill 3 Defect, Biopsies pending. A full PDF copy of the report with photos is in the results and/or mediatab for your review. Please refer to this for full details of theprocedure. Ok to proceed with preoperative plan, no need for follow up appointment. Pt to have hiatal hernia repair added on to primary procedure discussed Anthony Martell MD Anthony Martell MD GI PROCEDURE ORDERAB LES [facility] [place] [address] * HCG URINE QUALITATIVE - POCT (IP) INTERFACED (11/17/2022 6:49 AM SALES ADVISORY MANAGER) HCG Qual Urine Negative Negative 11/17/2022 6:54 AM SALES ADVISORY MANAGER [facility] Urine URINE / Unknown 11/17/2022 6 :49 AM SALES ADVISORY MANAGER 11/17/2022 6:54 AM SALES ADVISORY MANAGER Anthony Martell MD LAB - POINT OF CARE ORDERABLES Performing Organization Address [facility] Co de Phone Number [facility] [address] [place] [address] * URIC ACID BLOOD (11/04/2020 8:41 AM SALES ADVISORY MANAGER) Only the most recent of2 resultswithin the time period is included. Uric Acid 4.3 2.6 - 6.2 mg/dL [facility] ACCOUNT BILL Comment: ?Therapeutic target for gout patients: <6.0 FASTING Blood BLOOD SPECIMEN / Unknown 11/04/2020 8:41 AM SALES ADVISORY MANAGER 11/04/2020 Narrative Resulting Agency Comment Lab Testing performed at: [facility] ??[facility] [phone] Nydia Armas MD LAB - CHEMISTRY O RDERABLES Performing Organization Address [facility] de Phone Number [facility] ACCOUNT BILL [address] [place] [address] * (ABNORMAL) HEMOGLOBIN A1C (11/04/2020 8:41 AM SALES ADVISORY MANAGER) Only the most recent of3 resultswithin the time period is included. Hemoglobin A1c 4.7(L) 4.8 - 5.6 % [facility] ACCOUNT BILL Comment: ? . ? Prediabetes: 5.7 - 6.4 ? Diabetes: >6.4 ? Glycemic control for adults with diabetes: <7.0 FASTING Blood BLOOD SPECIMEN / Unknown 11/04/2020 8:41 AM SALES ADVISORY MANAGER 11/04/2020 Narrative Resulting Agency Comment [facility]: [facility] ??[facility] [phone] Nydia Armas MD LAB - CHEMISTRY O HANNAH Performing Organization Address City/[facility] Co de Phone Number [facility] ACCOUNT BILL [address] [place] [address] * MAGNESIUM BLOOD (11/04/2020 8:41 AM SALES ADVISORY MANAGER) Only the most recent of2 resultswithin the time period is included. Magnesium 1.9 1.6 - 2.3 mg/dL [facility] ACCOUNT BILL Comment:FASTING Blood BLOOD SPECIMEN / Unknown 11/04/2020 8:41 AM SALES ADVISORY MANAGER 11/04/2020 Narrative Resulting Agency Comment Lab Testing performed at: [facility] ??[facility] [phone] Nydia Armas MD LAB - CHEMISTRY O HANNAH Performing Organization Address [facility] Co de Phone Number [facility] ACCOUNT BILL [address] [place] [address] * LIPID PROFILE (11/04/2020 8:41 AM SALES ADVISORY MANAGER) Only the most recent of2 resultswithin the time period is included. Cholesterol 160 100 - 199 mg/dL [facility] ACCOUNT BILL Triglycerides 39 0 - 149 mg/dL [facility] ACCOUNT BILL HDL Cholesterol 73 >39 mg/dL [facility] ACCOUNT BILL VLDL Calculated 9 5 - 40 mg/dL [facility] ACCOUNT BILL LDL Calculated 78 0 - 99 mg/dL [facility] ACCOUNT BILL Comment NOT NEEDED [facility] ACCOUNT BILL Comment: FASTING Ancillary determined the test is not needed. Blood BLOOD SPECIMEN / Unknown 11/04/2020 8:41 AM SALES ADVISORY MANAGER 11/04/2020 Narrative Resulting Agency Comment Lab Testing performed [facility] ??[facility] [phone] Nydia Armas MD LAB - CHEMISTRY O RDERABLES [facility] ACCOUNT [place] [place] [address] * (ABNORMAL) SARS-COV-2 (COVID-19) IN HOUSE (09/28/2020 9:25 AM SALES ADVISORY MANAGER) Only the most recent of3 resultswithin the time period is included. Pathologist [facility] COVID-19 PCR Detected( AA) Not detected 09/28/2020 10:48 PM SALES ADVISORY MANAGER [facility] MICROBIOLOGY Microbiology SPECIMEN FROM NASOPHARYNGEAL STRUCTURE / Unknown Collection / Unknown 09/28/2020 9:25 AM SALES ADVISORY MANAGER 09/28/2020 9:25 AM SALES ADVISORY MANAGER Narrative [facility] - 09/28/2020 10:48 PM SALES ADVISORY MANAGER This nucleic acid amplification assay performance was validated by [facility]. This test has been authorized by the Food and Drug administration (FDA)under an Emergency??Use Authorization (EUA). This test has been validated in accordance with the FDA's guidance document Policy for Diagnostic Testing in Laboratories Certified to perform High Complexity Testing under CLIA prior to Emergency Use Authorization for Coronavirus Disease-2019 during the Public Health Emergency issued on November 23, 2019. FDA independent review of this validation is pending. This test is only authorized for the duration of time the declaration that circumstances exist justifying the authorization of emergency use of in vitro diagnostic tests for detection of SARS-CoV-2 virus and/or diagnosis of COVID-19 infection under section 564(b)(1) of the Act, 21 U.S.C 360bbb-3 (b)(1), unless the authorization is terminated or revoked sooner. Fact Sheets for this EUA assay are available upon request. Krista Bravo APRN-GUNSMITH APPRENTICE LAB - MICROBIOL OGY ORDERABLES [facility] [address] [place] [address], [facility] [phone] * TSH REFLEX FREE T4 (04/08/2020 1:17 PM CDT) Pathologist [facility] TSH 1.830 0.450 - 4.500 uIU/mL [facility] INS[facility] B[facility] Blood BLOOD SPECIMEN / Unknown 04/08/2020 1:17 PM CDT 04/08/2020 Narrative Resulting Agency Comment [facility] performed at: [facility] [address] ??[facility] [phone] Nydia Armas MD LAB - CHEMISTRY O RDERABLES [facility] INS[facility]ANCE BILL [address] [place] [address] * IMAGING/RADIOLOGY/XRAY RESULTS ORDER (05/13/2019 9:06 PM CDT) Only the most recent of2 resultswithin the time period is included. Anatomical Region Laterality Modality Other Narrative 05/13/2019 9:06 PM CDT Ordered by an unspecified provider. Scanned Document IMAGING * GROSS + MICRO EXAM (STL) (05/09/2019 1:18 AM CDT) Case Report Surgical Pathology Report ? Case: [id number] ? Authorizing Provider: ??Karen Patel MD ?Collected: ? 05/09/2019 01:18 AM ? Ordering Location: ? [facility] LDR ? Received: ?05/10/2019 06:40 AM ? Pathologist: ? Ruth Martinez MD ? Specimen: ?Placenta ? 05/14/2019 1:58 PM [facility] Final Diagnosis Umbilical cord, vaginal delivery: - Three-vessel cord with no significant histopathologic abnormality membranes, vaginal delivery: - No significant histopathologic abnormality Placenta, vaginal delivery: - Third trimester placenta with mature villous morphology - Placental weight small for gestational age (390 g) - -placental ratio 90%ile for gestational age KES/ns 05/14/2019 1:58 PM [facility] Clinical History The patient is a 28-year-old woman who presents at 39 weeks and 3 days of gestation with oligohydramnios with vaginal delivery of a viable infant female with Apgars of 9 and 9, weighing 3315 g. 05/14/2019 1:58 PM [facility] Gross Description The specimen is identified with patient's name Leti Cortes. Received in formalin, specimen A, placenta consists of a hillman discoid placenta with attached membranes and umbilical cord. The placental disc measures 18 x 14.5 cm, the placenta thickness is 3 cm. The umbilical cord inserts eccentrically, 2 cm from the nearest margin. The umbilical cord measures 18 cm in length with a diameter of 1.1 cm. There are no true knots of the umbilical cord and it is yellow-pollack and glistening. On cut surface, the umbilical cord proves trivascular. The membranes insert marginally and are pink-pollack and translucent. The shortest length measures 1.5 cm, the longest length measures 15 cm. The placental weight after trimming is 390 gm. The surface is blue-fine and glistening with normal arborizing vasculature. The maternal surface is maroon with intact cotyledons and loosely adherent coagula. The specimen is serially sectioned and cut surface reveals maroon spongy parenchyma. No gross lesions are identified. [employer] sections are submitted as follows: A1 - Umbilical cord and membranes A2 and A3 - Placental disc. ED/scs 05/14/2019 1:58 PM CDT [facility] Microscopic Description Microscopic examination substantiates the final diagnosis. KES/ns 05/14/2019 1:58 PM CDT [facility] Disclaimer All histochemical and/or immunohistochemical results are interpreted with controls that demonstrate appropriate staining reactions before reporting results. Note on use of immunocytochemistry reagents: This test was developed and its performance characteristic determined by [facility], Department of Laboratory Medicine. It has not been cleared or approved by the U.S. Food and Drug Administration (FDA). The FDA has determined that such clearance or approval is not necessary. The test is used for clinical purpose. It should not be regarded as investigational or for research. This laboratory is certified to perform high complexity testing. 05/14/2019 1:58 PM CDT [facility] Embedded Images 05/14/2019 1:58 PM CDT [facility] Pathology/Cytolo gy ENTIRE PLACENTA / Unknown Collection / Unknown 05/09/2019 1:18 AM CDT 05/10/2019 6:40 AM CDT Karen Patel MD LAB - PATHOLOGY/CYTO LOGY ORDERABLES [facility] [address] [place] [address] * (ABNORMAL) BLOOD GASES CORD MARQUES (ISTAT) (05/09/2019 12:13 AM CDT) pH Cord Venous POCT 7.37 7.28 - 7.40 pH 05/09/2019 12:20 AM CDT [facility] pCO2 Cord Venous POCT 33(L) 35 - 45 mm hg 05/09/2019 12:20 AM CDT [facility] pO2 Cord Venous POCT 22 22 - 33 mm hg 05/09/2019 12:20 AM CDT [facility] HCO3 Cord Arterial POCT 19.0(L) 22 - 24 mmol/L 05/09/2019 12:20 AM CDT [facility] BE Cord Venous POCT Calc -5 -6.4 - 1.6 mmol/L 05/09/2019 12:20 AM CDT [facility] TCO2 Cord Venous POCT 20(L) 22 - 30 mmol/L 05/09/2019 12:20 AM CDT [facility] O2 Saturation % Cord Venous Calc POCT 37 % 05/09/2019 12:20 AM CDT [facility] Site CORD MARQUES 05/09/2019 12:20 AM CDT [facility] Sample iSTAT CORD V 05/09/2019 12:20 AM CDT [facility] Blood CORD BLOOD SPECIMEN / Unknown 05/09/2019 12:13 AM CDT 05/09/2019 12:20 AM CDT Rey Mar MD LAB - POINT OF CARE ORDERABLES Performing Organization Address City/State/[facility] Co de Phone Number [facility] [address] [place] [address] * Neuraxial Block (05/08/2019 1:56 PM CDT) Narrative Marianne Barry APRN-CRNA - 05/08/2019 1:56 PM CDT Marianne Barry APRN-CRNA ? 05/08/2019 ??1:57 PM Neuraxial Block Note ?? Procedure Name: ??Neuraxial Block Patient Location: ??OB Pre-Procedure: ?? Indications: ??at patient's request and labor analgesia Pre-Anesthetic Checklist: ??Patient identified, IV Checked, Risks and benefits discussed, Surgical consent verified, Monitors and equipment, Site examined, Pre-op evaluation done, Time-out performed, Informed consent obtained, Questions answered/anesthesia questions answered and Allergies reviewed Anticoagulation/ Anti-thrombosis status confirmed? ??Yes Supplemental O2: ??room air Monitors: ??continuous pluse ox and BP Patient Condition: ??awake Procedure: ?? Block Type: ??Epidural Prep: ??Betadine Sterile Field: ??mask, cap/hat, sterile established and sterile gloves Approach: ??midline Epidural Block: ?? Is this procedure for postop pain? ??No Needle Type: ??Tuohy Needle gauge: ??18 G Needle length: ??90 mm Placement Site: ??L4-L5 Number of Attempts: ??1 Loss of Resistance: ??14 Catheter length at skin (cm): ??20 CSF Aspirated from catheter: ??No Blood Aspirated: ??No Test Dose: ??lidocaine 1.5% with 1-200,000 epinephrine ?? 3 ??mL at ?? 05/08/2019 1:30 PM Test Dose Response: ??No Epidural Infusion Medications: ? Bupivacaine: ??0.125% with 2mcg/ml Fentanyl started at, ?? 150 cc (mL) at 12 ??mL/hr Degree of difficulty: ??none Procedure Tolerance: ??tolerated well Sensory Level: ??T6 Motor Blockade: ??No Position post procedure: ??left uterine displacement Vital Signs: ?? heart tones monitored and stable throughout., Vital signs moniitored and stable throughout. ??See nursing vitals flowsheet for details. Start Time: ??05/08/2019 1:27 PM End Time: ??05/08/2019 1:30 PM Total Time: ??3 Staff: ?? Anesthesia Provider: ??Marianne Barry APRN-DESIZING MACHINE OPERATOR ?? - ?? performed the procedure Zachary Angel MD GENERAL ANESTHESIA ORDERABLES * BLOOD TYPE VERIFICATION (05/07/2019 6:04 PM CDT) ABO A 05/07/2019 6:43 PM CDT [facility] Rh Type Positive 05/07/2019 6:43 PM CDT [facility] Blood Bank BLOOD SPECIMEN / Unknown Venipuncture / Unknown 05/07/2019 6:04 PM CDT 05/07/2019 6:11 PM CDT Rey Mar MD LAB - BLOOD BANK ORD ERABLES [facility] [address] [phone] * TYPE + SCREEN PANEL (05/07/2019 4:52 PM CDT) ABO A 05/07/2019 5:32 PM CDT [facility] Rh Type Positive 05/07/2019 5:32 PM CDT [facility] Comment:History checked. Col lect retype. Antibody Screen Negative 05/07/2019 5:32 PM CDT [facility] Blood Bank BLOOD SPECIMEN / Unknown Venipuncture / Unknown 05/07/2019 4:52 PM CDT 05/07/2019 5:02 PM CDT Coby Levy MD LAB - BLOOD BANK ORD ERABLES [facility] [address] [place] [address], [facility] [phone] * NONSTRESS TEST (04/22/2019 10:14 AM CDT) Narrative Maggi Paris MD - 04/22/2019 10:14 AM CDT Maggi Paris MD ? 04/22/2019 10:14 AM Name: ??Leti Cortes Date of : ??1990 Today's Date: ??04/04/2019 ?NST RESULTS ([place]ILLMAN) OBJECTIVE FINDINGS , ??, ??, BP: 110/70 OBJECTIVE FINDINGS OTHER INFORMATION Crystal Miner RN PGY1 MOTOR SCOOTER MECHANIC Progress Note FHR: baseline 145 bpm, moderate variability, reactive, no decelerations, reassuring TOCO: none Maggi Paris MD 04/22/2019 10:14 AM Maggi Paris MD OB GYNE ORDERABLES * ECHOCARDIOGRAM 2D WITH DOPPLER (02/04/2019 8:47 AM CDT) 02/04/2019 8:47 AM CDT Narrative [facility] - 02/04/2019 5:49 PM CDT [facility] [address] Transthoracic Echocardiogram 2D, M-mode, Doppler, and Color Doppler Patient: LETI CORTES MR number: [id number] Height: 66 in Weight: 299.4 lb BSA: 2.38 m?? Study date: 04-Feb-2019 : 1990 Age: 28 years Gender: Female Race: Allergies: TRAMADOL, PENICILLINS Pourer Bull Ladle: ??SOETRO Deluna Referring Physician: ??Ayanna Luna, DO Referring Physician: ??Malena Munoz MD Referring Physician: ??Rey Mar MD Reading Physician: ??Hunter Barbosa Jr., MD Summary: - ??Clinical question: - ??MVP - ??History: - ??28 weeks gestation - ??Left ventricle: - ??Systolic function was normal. Ejection fraction was estimated in the range of 55 % to 65 %. - ??There were no regional wall motion abnormalities. - ??Wall thickness was normal. Indications: MVP History: Prior history: 28 weeks gestation Procedure: The study was performed in the [facility]. The transthoracic approach was used. The study included complete 2D imaging, M-mode, complete spectral Doppler, and color Doppler. Systolic blood pressure was 124 mmHg. Diastolic blood pressure was 70 mmHg. Image quality was adequate. Left ventricle: Size was normal. Systolic function was normal. Ejection fraction was estimated in the range of 55 % to 65 %. There were no regional wall motion abnormalities. Wall thickness was normal. Doppler: The transmitral flow pattern was normal. Left ventricular diastolic function parameters were normal for the patient's age. Aortic valve: The valve was trileaflet. Leaflets exhibited normal thickness and normal cuspal separation. Doppler: There was no stenosis. There was no regurgitation. Aorta: The root exhibited normal size. Mitral valve: Valve structure was normal. There was normal leaflet separation. Doppler: The transmitral velocity was within the normal range. There was no evidence for stenosis. There was trivial regurgitation. Left atrium: Size was normal. Right ventricle: The size was normal. Systolic function was normal. Wall thickness was normal. Pulmonic valve: Leaflets exhibited normal thickness, no calcification, and normal cuspal separation. Doppler: There was no regurgitation. Pulmonary artery: The size was normal. Doppler: Systolic pressure was within the normal range. Tricuspid valve: The valve structure was normal. There was normal leaflet separation. Doppler: The transtricuspid velocity was within the normal range. There was no evidence for tricuspid stenosis. There was trivial regurgitation. Right atrium: Size was normal. Pericardium: The pericardium was normal in appearance. System measurement tables 2D Ao Diam: 3.3 cm LVOT Diam: 2.2 cm LA Diam: 4.5 cm LAEDV Index (A-L): 26.6 ml/m2 LAEDV(A-L): 63.4 ml IVSd: 0.9 cm LVIDd: 5 cm LVIDs: 3.2 cm LVPWd: 1 cm CW AV VTI: 32.7 cm AV Vmax: 1.3 m/s AV Vmean: 1 m/s AV maxP.7 mmHg AV meanP.4 mmHg PV Vmax: 1.1 m/s PV maxP.6 mmHg MM TAPSE: 2.8 cm PW RONALD (VTI): 3.7 cm2 RONALD Vmax: 3.8 cm2 LVOT VTI: 31.3 cm LVOT Vmax: 1.3 m/s LVOT Vmean: 1 m/s LVOT maxP.5 mmHg LVOT meanP.2 mmHg MV E/A Ratio: 2.3 LATERAL E': 0.2 m/s LATERAL E/E': 5.8 SEPTAL E': 0.1 m/s SEPTAL E/E': 9.4 Prepared and signed by Hunter Barbosa Jr., MD Signed 04-Feb-2019 17:48:58 Procedure Note Hunter Barbosa Jr., MD - 02/04/2019 [facility] [place] [id number] [facility] [address] [place] [address] Transthoracic Echocardiogram 2D, M-mode, Doppler, and Color Doppler Patient: LETI CORTES MR number: [id number] Height: 66 in Weight: 299.4 lb BSA: 2.38 m?? Study date: 04-Feb-2019 : 1990 Age: 28 years Gender: Female Race: Allergies: TRAMADOL, PENICILLINS Pourer Bull Ladle: SOTERO Deluna Referring Physician: Ayanna Luna DO Referring Physician: Malena Munoz MD Referring Physician: Rey Mar MD Reading Physician: Hunter Barbosa Jr., MD Summary: - Clinical question: - MVP - History: - 28 weeks gestation - Left ventricle: - Systolic function was normal. Ejection fraction was estimated in the range of 55 % to 65 %. - There were no regional wall motion abnormalities. - Wall thickness was normal. Indications: MVP History: Prior history: 28 weeks gestation Procedure: The study was performed in the [facility]. The transthoracic approach was used. The study included complete 2D imaging, M-mode, complete spectral Doppler, and color Doppler. Systolic blood pressure was 124 mmHg. Diastolic blood pressure was 70 mmHg. Image quality was adequate. Left ventricle: Size was normal. Systolic function was normal. Ejection fraction was estimated in the range of 55 % to 65 %. There were no regional wall motion abnormalities. Wall thickness was normal. Doppler: The transmitral flow pattern was normal. Left ventricular diastolic function parameters were normal for the patient's age. Aortic valve: The valve was trileaflet. Leaflets exhibited normal thickness and normal cuspal separation. Doppler: There was no stenosis. There was no regurgitation. Aorta: The root exhibited normal size. Mitral valve: Valve structure was normal. There was normal leaflet separation. Doppler: The transmitral velocity was within the normal range. There was no evidence for stenosis. There was trivial regurgitation. Left atrium: Size was normal. Right ventricle: The size was normal. Systolic function was normal. Wall thickness was normal. Pulmonic valve: Leaflets exhibited normal thickness, no calcification, and normal cuspal separation. Doppler: There was no regurgitation. Pulmonary artery: The size was normal. Doppler: Systolic pressure was within the normal range. Tricuspid valve: The valve structure was normal. There was normal leaflet separation. Doppler: The transtricuspid velocity was within the normal range. There was no evidence for tricuspid stenosis. There was trivial regurgitation. Right atrium: Size was normal. Pericardium: The pericardium was normal in appearance. System measurement tables 2D Ao Diam: 3.3 cm LVOT Diam: 2.2 cm LA Diam: 4.5 cm LAEDV Index (A-L): 26.6 ml/m2 LAEDV(A-L): 63.4 ml IVSd: 0.9 cm LVIDd: 5 cm LVIDs: 3.2 cm LVPWd: 1 cm CW AV VTI: 32.7 cm AV Vmax: 1.3 m/s AV Vmean: 1 m/s AV maxP.7 mmHg AV meanP.4 mmHg PV Vmax: 1.1 m/s PV maxP.6 mmHg MM TAPSE: 2.8 cm PW RONALD (VTI): 3.7 cm2 RONALD Vmax: 3.8 cm2 LVOT VTI: 31.3 cm LVOT Vmax: 1.3 m/s LVOT Vmean: 1 m/s LVOT maxP.5 mmHg LVOT meanP.2 mmHg MV E/A Ratio: 2.3 LATERAL E': 0.2 m/s LATERAL E/E': 5.8 SEPTAL E': 0.1 m/s SEPTAL E/E': 9.4 Prepared and signed by Hunter Barbosa Jr., MD Signed 04-Feb-2019 17:48:58 Ayanna Luna DO ECHO ORDERABLES [facility] [address] [place] [address] * (ABNORMAL) CULTURE URINE (07/02/2018 3:00 PM CDT) Urine Culture Routine Final report(A) [facility] ACCOUNT BILL Result 1 Escherichia coli(A) [facility] ACCOUNT BILL Comment: 25,000-50,000 colony forming units per mL Cefazolin <=4 ug/mL Cefazolin with an RANDALL <=16 predicts susceptibility to the oral agents cefaclor, cefdinir, cefpodoxime, cefprozil, cefuroxime, cephalexin, and loracarbef when used for therapy of uncomplicated urinary tract infections due to E. coli, Klebsiella pneumoniae, and Proteus mirabilis. Antimicrobial Susceptibility [facility] ACCOUNT BILL Comment: ? S = Susceptible; I = Intermediate; R = Resistant ? P = Positive; N = Negative ?MICS are expressed in micrograms per mL ?? Antibiotic ? RSLT#1 ?RSLT#2 ?RSLT#3 ?RSLT#4 Amoxicillin/Clavulanic Acid ?S Ampicillin ? S Cefepime ? S Ceftriaxone ?S Cefuroxime ? S Ciprofloxacin ?S Ertapenem ?S Gentamicin ? S Imipenem ? S Levofloxacin ? S Meropenem ?S Nitrofurantoin ? S Piperacillin/Tazobactam ?S Tetracycline ? S Tobramycin ? S Trimethoprim/Sulfa ? S Urine URINE SPECIMEN OBTAINED BY CLEAN CATCH PROCEDURE / Unknown 07/02/2018 3:00 PM CDT 07/02/2018 Narrative Resulting Agency Comment [facility] [address] ??[facility] [phone] Malena Munoz MD LAB - MICROBIOLOGY O RDERABLES Performing Organization Address City/State/[facility] Co de Phone Number [facility] ACCOUNT BILL [address] [place] [address] * URINALYSIS AUTO - POINT OF CARE (AMB) STL (07/02/2018) Only the most recent of2 resultswithin the time period is included. Clarity UA POCT Cloudy Color UA POCT Dark Yellow Leukocyte UA 2+ Negative Nitrite UA POCT Negative Negative Urobilinogen UA 0.2 0.1 - 1.0 Protein UA POCT 2+ Negative pH UA 6.0 5.0 - 8.0 pH units Blood UA 3+ Negative Specific [place] UA POCT 1.030 1.002 - 1.030 Ketone UA Negative Negative Bilirubin UA POCT Negative Negative Glucose UA Negative Negative Expiration Date 08/04/2019 Lot # [id number] QC Verified Yes Yes Urine URINE / Unknown 07/02/2018 Malena Munoz MD LAB - POINT OF CARE ORDERABLES * HCG URINE QUALITATIVE - POINT OF CARE (AMB) STL (07/02/2018) Only the most recent of2 resultswithin the time period is included. HCG Qual Urine Negative Negative HCG Urine QC NEG Present NEGATIVE - POSITIVE HCG Urine QC POS Present NEGATIVE - POSITIVE Expiration Date 09/24/2019 Lot # [id number] Urine URINE / Unknown 07/02/2018 Malena Munoz MD LAB - POINT OF CARE ORDERABLES * LIPID PROFILE REFLEX LDL DIRECT (03/22/2017 1:45 PM CDT) Cholesterol 193 <200 mg/dL [facility] ACCOUNT BILL Triglycerides 67 <150 mg/dL [facility] ACCOUNT BILL HDL Cholesterol 96 >40 mg/dL [facility] ACCOUNT BILL VLDL Calculated 13 <=30 mg/dL [facility] ACCOUNT BILL LDL Calculated 84 <130 mg/dL [facility] ACCOUNT BILL Cholesterol/HDL Ratio 2.0 <4.5 [facility] ACCOUNT BILL LDL/HDL Ratio 0.9 <5.0 [facility] ACCOUNT BILL Blood BLOOD SPECIMEN / Unknown 03/22/2017 1:45 PM CDT 03/22/2017 Narrative Resulting Agency Comment [facility] [address] [facility] ??[facility] [id number] Malena Munoz MD LAB - CHEMISTRY ESPERANZA VELASCO [facility] Organization Address City/State/ZIP Co de Phone Number [facility] ACCOUNT BILL [address] [place] [address] * THYROID CASCADE PROFILE (03/22/2017 1:45 PM CDT) TSH 1.990 0.450 - 4.500 uIU/mL [facility] ACCOUNT BILL BLOOD SPECIMEN / Unknown 03/22/2017 1:45 PM CDT 03/22/2017 Narrative Resulting Agency Comment [facility] [address] [facility] ??[facility] [id number] Malena Munoz MD LAB - CHEMISTRY ORDBola VELASCO Performing Organization Address City/[facility] Co de Phone Number [facility] ACCOUNT BILL [address] [place] [address] * PT-INR (03/22/2017 1:45 PM CDT) INR 1.0 0.9 - 1.1 [facility] ACCOUNT BILL Comment: Conventional Warfarin Anticoagulant Therapy: INR Reference Range: ??2.0-3.0 Intensive Warfarin Anticoagulant Therapy: INR Reference Range: ? 2.5-3.5 PT 10.0 9.5 - 11.6 sec [facility] ACCOUNT BILL Blood BLOOD SPECIMEN / Unknown 03/22/2017 1:45 PM CDT 03/22/2017 Narrative Resulting Agency Comment [facility] [address] [facility] ??[facility] [phone] Malena Munoz MD LAB - COAGULATION OR DERABLES Performing Organization Address [facility] Co de Phone Number [facility] ACCOUNT BILL [address] [place] [address] * XR LUMBAR SPINE 2 OR 3 VW (11/04/2016 10:18 AM SALES ADVISORY MANAGER) Anatomical Region Laterality Modality Spine Radiographic Laure ging 11/04/2016 10:3 0 AM SALES ADVISORY MANAGER Impressions 11/04/2016 10:32 AM SALES ADVISORY MANAGER Lumbar spine facet osteoarthritis with likely normal disc heights. Narrative 11/04/2016 10:32 AM SALES ADVISORY MANAGER Examination: Lumbar spine 2 or 3 views History: Lower back pain Findings: AP and lateral views of the lumbar spine were performed without comparison. Cholecystectomy clips are noted. Alignment of the lumbar spine appears normal. No lumbar spine compression deformity is noted. The disc spaces appear grossly normal. Likely facet osteoarthritis is noted. Procedure Note Noel Garcia MD - 11/04/2016 Examination: Lumbar spine 2 or 3 views History: Lower back pain Findings: AP and lateral views of the lumbar spine were performed without comparison. Cholecystectomy clips are noted. Alignment of the lumbar spine appears normal. No lumbar spine compression deformity is noted. The disc spaces appear grossly normal. Likely facet osteoarthritis is noted. IMPRESSION Lumbar spine facet osteoarthritis with likely normal disc heights. Malena Munoz MD DIAGNOSTIC IMAGING O RDERABLES * PAP SMEAR LB HPV HR (PO REF LAB) (02/19/2016 11:33 AM CDT) Diagnosis [facility] ACCOUNT BILL Comment:NEGATIVE FOR INTRAEP ITHELIAL LESION AND MALIGNANCY. Specimen Adequacy [facility] ACCOUNT BILL Comment: Satisfactory for evaluation. ??Endocervical and/or squamous metaplastic cells (endocervical component) are present. Clinician Provided ICD10 [facility] ACCOUNT BILL Comment: Z23 Z01.419 N92.6 F41.8 E66.01 Z13.220 Performed by [facility] ACCOUNT BILL Comment:Dodie Andrade, Customer Marketing Intern ([facility]) Comment . [facility] ACCOUNT BILL Note [facility] [...] Vial Resulting Agency Comment [facility] [address] [facility] ??[facility] [place] [id number] Malena Munoz MD LAB - PATHOLOGY/CYTO LOGY ORDERABLES [facility] ACCOUNT BILL [address] [place] [address] * VARICELLA ZOSTER ANTIBODY IGG (08/18/2015 8:37 AM SALES ADVISORY MANAGER) Varicella zoster Virus Antibody IgG 326.7 IV 08/21/2015 1:31 AM SALES ADVISORY MANAGER [facility] Comment: INTERPRETIVE INFORMATION: VZV Ab, IgG ??134 IV or less ....... Negative - No significant level ? of detectable IgG varicella- ? zoster antibody. ??135 -165 IV .......... Equivocal - Repeat testing in ? 10-14 days may be helpful. ??166 IV or greater .... Positive - IgG antibody to ? varicella-zoster detected, which ? may indicate a current or ? past varicella-zoster ? infection. The best evidence for current infection is a significant change on two appropriately timed specimens, where both tests are done in the same laboratory at the same time. Blood specimen (specimen) BLOOD SPECIMEN / Unknown Venipuncture / Unknown 08/18/2015 8:37 AM SALES ADVISORY MANAGER 08/18/2015 7:11 PM SALES ADVISORY MANAGER Provider Unknown LAB - CHEMISTRY ORDE KRISTA [facility] [address] [place] [address] * HEPATITIS B SURFACE ANTIBODY (08/18/2015 8:37 AM SALES ADVISORY MANAGER) HBsAb Non Reactive Non Reactive 08/18/2015 7:55 PM SALES ADVISORY MANAGER [facility] Blood BLOOD SPECIMEN / Unknown Venipuncture / Unknown 08/18/2015 8:37 AM SALES ADVISORY MANAGER 08/18/2015 7:11 PM SALES ADVISORY MANAGER Provider Unknown LAB - CHEMISTRY ESPERANZA VELASCO [facility] [address] [place] [address] Care Teams Candy Spreader Helper Relationship Specialty Start Date End Date Crystal Cedeno [address] [place] [address] PCP - General Nurse Practitioner 10/24/22
--- OUTSIDE RECORDS SUMMARY | 2024-10-07 02:44 | XMS_ITS | Encounter Summary ---
Author Organization [facility] Health Address [address] [place] [address] Care Team Providers Care Retail Marketing Manager Name Role Phone Crystal Cedeno Primary Care Provider [phone] Encounter Details Date Type Department Care Team (Late st Contact Info) Description 02/22/2023 Orders Only [facility] Weight Management Services [id number] [place] [address] [address] [place] [address] Elis Milligan, WATER SOFTENER SERVICER AND INSTALLER-DEEP SUBMERGENCE VEHICLE OPERATOR [address] [facility] [address] [place] [address] Morbid obesity (HCC) ; Bariatric surgery status; Vitamin deficiency; Vitamin D deficiency; Malaise and fatigue Social History Tobacco Use Types Packs/Day Years [...] and heating? Not hard at all 12/14/2022 [place] [facility] - Occupational Stress [...] Procedure Name Priority Date/Time Associated Diagnosis Comments VITAMIN B1 Routine 02/25/2023 9:30 AM CDT Morbid obesity (HCC) Bariatric surgery status Vitamin deficiency Vitamin D deficiency Malaise and fatigue VITAMIN D 25-HYDROXY Routine 02/25/2023 9:30 AM CDT Morbid obesity (HCC) Bariatric surgery status Vitamin deficiency Vitamin D deficiency Malaise and fatigue CBC W/O DIFFERENTIAL Routine 02/25/2023 9:30 AM CDT Morbid obesity (HCC) Bariatric surgery status Vitamin deficiency Vitamin D deficiency Malaise and fatigue COMPREHENSIVE METABOLIC PANEL Routine 02/25/2023 9:30 AM CDT Morbid obesity (HCC) Bariatric surgery status Vitamin deficiency Vitamin D deficiency Malaise and fatigue VITAMIN B12 Routine 02/25/2023 9:30 AM CDT Morbid obesity (HCC) Bariatric surgery status Vitamin deficiency Vitamin D deficiency Malaise and fatigue documented in this encounter Results * VITAMIN D 25-HYDROXY (02/25/2023 9:30 AM CDT) Vitamin D, 25 Hydroxy 44.5 30.0 - 100.0 ng/mL [facility] ACCOUNT BILL Comment: Vitamin D deficiency has been defined by the [place] of Medicine and an Endocrine Society practice guideline as a level of serum 25-OH vitamin D less than 20 ng/mL (1,2). The Endocrine Society went on to further define vitamin D insufficiency as a level between 21 and 29 ng/mL (2). 1. IOM (Gilman of Medicine). 2010. Dietary reference ?? intakes for calcium and D. [place]: The ?? National AcademJaco Solarsi Press. 2. Swathi MF, Sharon NC, Anthony ONEAL, et al. ?? Evaluation, treatment, and prevention of vitamin D ?? deficiency: an Endocrine Society clinical practice ?? guideline. JCEM. 2011 Mar; 96(7):1911-30. FASTING Blood BLOOD SPECIMEN / Unknown 02/25/2023 9:30 AM CDT 02/25/2023 Narrative Resulting Agency Comment Lab Testing performed at: [place] [address] [facility] ??[facility] [id number] Elis Milligan WATER SOFTENER SERVICER AND INSTALLER-DEEP SUBMERGENCE VEHICLE OPERATOR LAB - CHEMIS TRY ORDERABLES [facility] ACCOUNT BILL [address] [place] [address] * (ABNORMAL) VITAMIN B12 (02/25/2023 9:30 AM CDT) Vitamin B12 1,606(H) 232 - 1,245 pg/mL [facility] ACCOUNT BILL Comment:FASTING Blood BLOOD SPECIMEN / Unknown 02/25/2023 9:30 AM CDT 02/25/2023 Narrative Resulting Agency Comment Lab Testing performed at: [address] ??[facility] [id number] Elis Milligan WATER SOFTENER SERVICER AND INSTALLER-[facility] LAB - CHEMIS TRY ORDERABLES Performing Organization Address [facility] de Phone Number [facility] ACCOUNT BILL [address] [place] [address] * VITAMIN B1 (02/25/2023 9:30 AM CDT) Vitamin B1 Whole Blood 138.9 66.5 - 200.0 nmol/L [facility] ACCOUNT BILL Comment:FASTING Blood BLOOD SPECIMEN / Unknown 02/25/2023 9:30 AM CDT 02/25/2023 Narrative [facility] ACCOUNT BILL - 03/03/2023 4:07 PM CDT Test(s) 633157-Upp. B1, Whole Blood was developed and its performance characteristics determined by [facility]. It has not been cleared or approved by the Food and Drug Administration. Resulting Agency Comment Lab Testing performed at: [address] ??[facility] [id number] Elis Milligan [facility] LAB - CHEMIS TRY ORDERABLES Performing Organization Address City/[facility]/ZIP Co de Phone Number [facility] ACCOUNT BILL [address] [place] [address] * COMPREHENSIVE METABOLIC PANEL (02/25/2023 9:30 AM CDT) Pathologist [facility] Glucose 90 70 - 99 mg/dL [facility] ACCOUNT BILL BUN 12 6 - 20 mg/dL [facility] ACCOUNT BILL Creatinine 0.65 0.57 - 1.00 mg/dL [facility] ACCOUNT BILL eGFR by CKD-EPI 120 >59 mL/min/1.7 3 [facility] ACCOUNT BILL BUN/Creatinine Ratio 18 9 - 23 [facility] ACCOUNT BILL Sodium 140 134 - 144 mmol/L [facility] ACCOUNT BILL Potassium 4.5 3.5 - 5.2 mmol/L [facility] ACCOUNT BILL Chloride 105 96 - 106 mmol/L [facility] ACCOUNT BILL CO2 20 20 - 29 mmol/L [facility] ACCOUNT BILL Calcium 9.2 8.7 - 10.2 mg/dL [facility] ACCOUNT BILL Protein Total 6.6 6.0 - 8.5 g/dL [facility] ACCOUNT BILL Albumin 4.3 3.8 - 4.8 g/dL [facility] ACCOUNT BILL Globulin Total 2.3 1.5 - 4.5 g/dL [facility] ACCOUNT BILL Albumin/Globulin Ratio 1.9 1.2 - 2.2 [facility] ACCOUNT BILL Bilirubin Total 0.6 0.0 - 1.2 mg/dL [facility] ACCOUNT BILL Alkaline Phosphatase 84 44 - 121 IU/L [facility] ACCOUNT BILL AST 24 0 - 40 IU/L [facility] ACCOUNT BILL ALT 13 0 - 32 IU/L [facility] ACCOUNT BILL Comment:FASTING Blood BLOOD SPECIMEN / Unknown 02/25/2023 9:30 AM CDT 02/25/2023 Narrative Resulting Agency Comment [facility] [address] [facility] ??[facility] [id number] Elis Milligan WATER SOFTENER SERVICER AND INSTALLER-DEEP SUBMERGENCE VEHICLE OPERATOR LAB - CHEMIS TRY ORDERABLES [facility] ACCOUNT BILL [address] [place] [address] * CBC W/O DIFFERENTIAL (02/25/2023 9:30 AM CDT) WBC 6.6 3.4 - 10.8 x10E3/uL [facility] ACCOUNT BILL RBC 4.19 3.77 - 5.28 x10E6/uL [facility] ACCOUNT BILL Hemoglobin 12.8 11.1 - 15.9 g/dL [facility] ACCOUNT BILL Hematocrit 38.7 34.0 - 46.6 % [facility] ACCOUNT BILL MCV 92 79 - 97 fL [facility] ACCOUNT BILL MCH 30.5 26.6 - 33.0 pg [facility] ACCOUNT BILL MCHC 33.1 31.5 - 35.7 g/dL [facility] ACCOUNT BILL RDW 12.3 11.7 - 15.4 % [facility] ACCOUNT BILL Platelet Count 228 150 - 450 x10E3/uL [facility] ACCOUNT BILL nRBC NOT AVAILABLE [facility] ACCOUNT BILL Comment: FASTING Result cannot be obtained for this observation. Blood BLOOD SPECIMEN / Unknown 02/25/2023 9:30 AM CDT 02/25/2023 Narrative Resulting Agency Comment Lab Testing performed at: [facility] [address] ??[facility] [phone] Elis Milligan WATER SOFTENER SERVICER AND INSTALLER-DEEP SUBMERGENCE VEHICLE OPERATOR LAB - HEMATO LOGY ORDERABLES [facility] ACCOUNT BILL [address] [place] [address] documented in this encounter Visit Diagnoses Diagnosis Morbid obesity (HCC)- Primary Morbid obesity Bariatric surgery status Vitamin deficiency Unspecified vitamin deficiency Vitamin D deficiency Malaise and fatigue documented in this encounter Care Teams Retail Marketing Manager Relationship Specialty Start Date End Date VinceCrystal grigsby [address] [place] [address] PCP - General Nurse Practitioner 10/24/22 documented as of this encounter
--- OUTSIDE RECORDS SUMMARY | 2024-10-07 02:44 | XMS_ITS | Encounter Summary ---
Author Organization [facility] Address [address] [facility] [place] [address] Care Team Providers Care Pulp Beater Name Role Phone Crystal Cedeno Primary Care Provider [phone] Reason for Visit * Reason Comments Refill Request Encounter Details Date Type Department Care Team (Late st Contact Info) Description 03/18/2024 Refill [facility] Weight Management Services [address] [address] Elis Milligan, STONE LAYER-THEATRE ARTS PROFESSOR [address] [facility] [address] [place] [address] Refill Request Social History Tobacco [...] and heating? Not hard at all 12/14/2022 [facility] [place] [facility] - Occupational Stress [...] place to sleep or slept in a skilled nursing (including now)? No 12/14/2022 Sex and Gender [...] on filedocumented in this encounter Care Teams Pulp Beater Relationship Specialty Start Date End Date Crystal Cedeno [address] [place] [address] PCP - General Nurse Practitioner 10/24/22 documented as of this encounter
--- OUTSIDE RECORDS SUMMARY | 2024-10-07 02:44 | XMS_ITS | Encounter Summary ---
Author Organization [facility] Address [address] [facility] [place] [address] Care Team Providers Care Cardiology Clinical Consultant Name Role Phone Crystal Cedeno Primary Care Provider [phone] Reason for Visit * Reason Onset Date Comments Follow-up 01/16/2023 Encounter Details Date Type Department Care Team (Late st Contact Info) Description 01/16/2023 Telephone [facility] Weight Management Services [address] [place] [address], [facility] [address] [place], [place] [id number] Stephanie Edwards, RN Follow-up Social History Tobacco Use Types Packs/Day Years [...] and heating? Not hard at all 12/14/2022 [facility] of Occupat ional Health - Occupational Stress [...] place to sleep or slept in a chcf (including now)? No 12/14/2022 Sex and Gender [...] No 12/14/2022 documented as of this encounter Miscellaneous Notes * Telephone Encounter - Stephanie Edwards RN - 01/16/2023 9:28 AM CDT Attempted to contact pt to review one month post op sleeve gastrectomy questionnaire in prep for one month post op class scheduled for 01/18/22. Pt did not answer-lmom and email sent requesting pt to call Stephanie at in order to review and complete questionnaire. documented in this encounter Plan of Treatment Not on file documented as of this encounter Visit Diagnoses Not on filedocumented in this encounter Care Teams Cardiology Clinical Consultant Relationship Specialty Start Date End Date Crystal Cedeno [address] [place] [address] PCP - General Nurse Practitioner 10/24/22 documented as of this encounter
--- OUTSIDE RECORDS SUMMARY | 2024-10-07 02:45 | XMS_ITS | Encounter Summary ---
Author Organization [facility] Health Address [address] [facility] [place] [address] Care Team Providers Care Tobacco Wrapping Machine Tender Name Role Phone Crystal Cedeno Primary Care Provider [phone] Encounter Details Date Type Department Care Team (Late st Contact Info) Description 2022 Orders Only [facility] [id number] [place] [address] [address] [place] [address] Leti Hunt, OFFSET LABEL REWINDER-AEROBICS TEACHER [address] [facility] [address] [place] [address] Morbid obesity (HCC) Social History Tobacco Use [...] and heating? Not hard at all 12/14/2022 [facility] - Occupational [...] Orientation Bisexual 01/03/2022 5: 41 PM CDT COVID-19 Exposure Response Date Recorded In the last 10 days, have yo u been in contact with someone who was confirmed or suspected to have Coronavirus/COVID-19? No / Unsure 11/30/2022 11:41 AM NURSE MANAGER documented as of this encounter Functional Status [...] obesity documented in this encounter Care Teams Tobacco Wrapping Machine Tender Relationship Specialty Start Date End Date Crystal Cedeno [address] [place] [address] PCP - General Nurse Practitioner 10/24/22 documented as of this encounter
--- OUTSIDE RECORDS SUMMARY | 2024-10-07 02:45 | XMS_ITS | Encounter Summary ---
Author Organization [facility] Address [address] [facility] [place] [address] Care Team Providers Care Fabrication Department Supervisor Name Role Phone Malena Munoz MD Primary Care Provider [phone] Reason for Visit * Reason Comments Establish Care nn-surg Encounter Details Date Type Department Care Team (Late st Contact Info) Description 03/17/2020 9:00 AM CDT Video Visit [facility] Management Services [id number] [place] [address], [facility] [address] [place] [address] Nydia Armas MD [facility] [address] [address] Morbid obesity due to excess calories (HCC) ; Low back pain radiating to left lower extremity Social History Tobacco Use Types Packs/Day Years Used Date Smoking Tobacco: Never Smokeless Tobacco: Never Alcohol Use Standard Drinks/Week Comments No 0 (1 standard drink = 0.6 oz pur e alcohol) Sex and Gender Information Value Date Recorded [...] - Inhaled Oxygen Concentration - - Weight 127.9 kg (282 lb) 03/17/2020 7:54 AM CDT Height 167.6 cm (5' 6 ) 03/17/2020 7:54 AM CDT Body Mass Index 45.52 03/17/2020 7:54 AM CDT documented in this encounter Functional Status Functional Status Response Date of Assess ment Is person deaf or have serious hearing difficult y? No 05/07/2019 Is person blind or have serious difficulty seein g? No 05/07/2019 Does person have serious dif ficulty walking/climbing stairs? No 05/07/2019 Does person have difficulty dressing/bathing? No 05/07/2019 Does person have difficulty doing errands alone? No 05/07/2019 Cognitive Status Response Date of Assessm ent Does person have difficulty concentrating/remembering/making decisions? No 05/07/2019 documented as of this encounter Patient Instructions * Patient Instructions* Nydia Armas MD - 03/17/2020 10:00 AM CDT Diet recommendation: - Referral to a dietitian is needed for education about healthy diet and making healthier choices. - Daily calorie intake recommended is 1200 calorie per day. - Meal replacement products (2-3 protein shakes) are strongly recommended. - Details will be discussed during your dietitian consultation. - Journalling your food intake is very helpful tool and is strongly recommended. Physical Activity: - Physical activity general target is 20-30 minutes of walking per day 5-7 days per week if your health condition allows. If walking is limited by back or low extremity problems, recumbent bike or water aerobics would be an adequate substitute. - If you are new to exercise activity, start at a level that is comfortable for you but not very easy. Increase your activity time by 5 minutes every week to reach and even exceed the target time. - It is OK to break walking time down into 10 to 15 minute walking sessions 2-3 times per day. - Adding 1 minute of more intense activity every 5-8 minutes of your regular activity can increase significantly your calorie spending and your endurance capacity (This is called HIIT, or high intensity intermittent exercise). - Exercise log is strongly recommended. - Maintaining moderate level of physical activity is strongly recommended as an essential componentof your weight management program. - Remember that physical activity habits determine your future success in preventing wait regain. - Water aerobics or Reclining bike could be a good alternative if your joints cannot tolerate walking well. Behavioral changes are a must. No dispatch lead success in weight loss is possible without changing thebehavior that lead to the obesity in the first place. - Future success depends on developing NEW GOOD habits and healthier choices. - Please pay attention to Behavioral modification goals and written plan you were provided. Goals for behavioral modification and improve commitment. As per our discussion, we agreed that you will do your best to follow this plan. 1. You will decide on 5-6 bad habits that you are aware you commit most days of the week. 2. You will list those and share it with someone you trust that would help you monitor your behavior. 3. You will choose 2 habits and commit to avoiding those 2 habits for 3 weeks 4. You will add 2 more habits for the following 3 weeks, and so on. Review the behavioral instruction sheet weekly please. - Attending our Behavioral classes cab a great addition to your plan. It is highly recommended. Medicine: - No change in you medications is recommended at this time. Follow up: - Follow up with Dr Armas in 6-8 week(s). documented in this encounter Progress Notes * Nydia Armas MD - 03/17/2020 9:06 AM CDT Bariatric Initial EVALUATION HISTORY & PHYSICAL This encounter is a live Audio-Video encounter Telehealth Visit Today's visit was conducted virtually due to [...] on date of encounter is: 60 minutes with 45 minutes spent in medical discussion Height: 5' 6 (167.6 cm) Weight: 282 lb (127.9 kg) BMI (Calculated): 45.54 Ht 5' 6 (1.676 m) Wt 282 lb (127.9 kg) BMI 45.52 kg/m2 Chief Complaint: Obesity, moderate: Other relevant medical problems: depression, controlled on prozac. HPI: Pt is a 29 year old yo female with history of significant obesity who presents for weight lossmanagement.The patient has attempted self directed weight loss in the past. She has now attained a BMI (Calculated): 45.54 and is hoping that weight management will improve her quality of life, and delays the worsening/development of comorbid conditions. Patient lost 250 lb few years ago over 18 months in a self directed program. Patient kept the weight off and is concerned now or regaining. Patient is maintaing activity with some online workout programs. Weight History: Most Weight Lost: 250 LB; Regained: Yes 25 HISTORY, Old Medical records, Dietary habits and triggers [_X_] - Reviewed. See scanned history questionnaire [_X_] - Old medical records Reviewed Wt Readings from Last 3 Encounters: 03/17/20 282 lb (127.9 kg) 05/07/19 (!) 330 lb (149.7 kg) 04/04/19 (!) 310 lb (140.6 kg) BP Readings from Last 3 Encounters: 08/17/19 138/70 04/04/19 110/70 02/12/19 128/64 ----- Past Surgical History: Procedure Laterality Date ??? Cholecystectomy, Laparoscopic 2008 ??? LASIK SURGERY Bilateral 11/2016 ??? [place] Tooth Extraction Allergies Allergen Reactions ??? Tramadol Other Shaky, increased heart rate, sweating. ??? Penicillins Rash Social History Smoking status: Never Smoker Smokeless tobacco: Never Used Alcohol use: No Drug use: No Sexual activity: Yes Partners with: Male Family History Problem Relation Name Age of Onset ??? Depression Mother ??? Anxiety Disorder Mother ??? Hypertension Father ??? Diabetes Father ??? Heart Disease Father no MS ??? Depression Maternal Grandmother ??? Anxiety Disorder Maternal Grandmother agoraphobia ??? Diabetes Maternal Grandfather ??? Heart Disease Maternal Grandfather ??? Cancer - Breast Paternal Grandmother ??? Cancer - Breast Other 2 maternal great aunts ----- Past Medical History: Diagnosis Date ??? NEGATIVE PAST MEDICAL HISTORY - SEE PROBLEM LIST Current Outpatient Medications Medication Sig Dispense Refill ??? buPROPion XL 24hr (WELLBUTRIN-XL) 150 MG tablet ??? buPROPion XL 24hr (WELLBUTRIN-XL) 300 MG tablet ??? diphenhydrAMINE (BENADRYL) 25 MG capsule Take 25 mg by mouth every 6 hours as needed for Itching Reported on 12/22/2016 ??? docusate sodium (COLACE) 100 MG capsule Take 1 capsule by mouth 2 times daily 60 capsule 5 ??? FLUoxetine (PROZAC) 20 MG capsule TK ONE C PO D ??? omeprazole (PRILOSEC) 20 MG capsule Take 20 mg by mouth daily before breakfast ??? ondansetron, disintegrating, (ZOFRAN ODT) 4 MG tablet Take 1 tablet by mouth every 6 hours as needed for Nausea/Vomiting Allow tablet to dissolve on the tongue (Patient not taking: Reported on 05/07/2019) 20 tablet 0 ??? Vit-Fe Fumarate-FA ( VITAMIN) 28-0.8 MG tablet Take 1 tablet by mouth once daily ??? raNITIdine (ZANTAC) 150 MG capsule Take 150 mg by mouth once daily No current facility-administered medications for this visit. Exercise/Physical activity: Activity level: good - 3-4 Hour(s)/week Activity Type: [_]-Walking [_]-Running [_]-Biking [_]-Water exercise [_]-Other Patients own reasons to lose weight:: Health, feeling better, and improved quality of life. Willing / Ready /Able score is 5-5-5 The patient denies the active presence of any of these 'red-flag' medical problems except those marked with an 'X': [_]-Gluacoma [_]-Seizures [_]-Thyrotoxicosis [_]-Anxiety [x_] Depression [_] ADD/ADHD [_] Bipolar disorder [_]-Panic Attacks [_]-Dysrhythmia requiring treatment [_]-Bulimia or Anorexia nervosa [_]-Alcohol dependence [_]-Morphine dependence [_]-Other drug abuse problems Physical Examination: Virtual Visit This encounter is a live Audio-Video encounter Labs/studies: [_x_]-Reviewed [__]-None reported [_x_]-Updated Screening Labs Requested EKG: [__]-N/A [__]-Reviewed [__]-None reported [__]-Update requested Impression/Plan: Target weight: 235 lbs over a period of 6-8 month(s). Obesity Class severe: - D/w the patient the basic components of the weight loss plan. Patient opted for Balanced Calorie Deficit diet as discussed below. No diagnosis found. - Continue current meds. I have discussed different options for weight loss in detail with the patient (including reduced calorie diet, behavioral modification and pharmacological option). The following is the outline of the planned agreeable to the patient. - Food journal maintenance was discussed and is recommended. - Discussed avoidance of unhealthy snacking. - Improve exercise capacity: discussed and self monitoring using a log book is recommended. Pharmaceutical interventions: ___x__ No weight loss medications is recommended at this time. Appetite suppressants may be considered later depending on progress and patient's response tocalorie restriction Continue Phentermine (37.5 mg/d). Side effects discussed with the patient. -- Side effects discussed and patients questions answered. - The patient is agreeable. Plan for ongoing weight management: __x___ Registered Dietitian consultation recommended. __x___ Caloric restriction (1200 calories/day) A simplified calorie control option (focussed on portion control from currently consumed foods) is recommended if full calorie control over meal preparations is not feasible. __x___ The patient received detailed Menu plan for the daily calories recommended. __x___ Meal Replacement Products (2-3 protein shakes/day as part of the recommended diet) Licensed Professional Counselor evaluation recommended Physical Activity counseling is recommended. Information provided. __x___ Discussed cardio-pulmonary exercise options with the patient. Specific examples and recommendations were provide and explained. Cardio pulmonary rehab exercise program is recommended if approved by cardiology. __x___ Activity of 20-30 minutes of walking is recommended 5-7 days of the week. If walking is limited by back or low extremity problems, recumbent bike or water aerobics would be an adequate substitute. __x___ Behavioral modification classes are strongly recommended. __x___ Specific Behavioral modification goals and written plan were provided for the patient. __x___ Personalized metabolic calculation sheet and exercise calorie spending were provided to the patient. __x___ Personalized Diet plan was provided to the patient. __x___ Follow up with Dr. Armas, in 6-8 weeks. >>>>>>>>>>>>>> This encounter is a live Audio-Video encounter This encounter with the patient lasted over 60 min, more than 50% of the time was in direct [id number] counseling with the patient regarding increased physical activity, reduced caloric intake, healthy diet and behavioral modifications. Nydia Armas MD 03/17/2020 documented in this encounter Plan of Treatment Not on file documented as of this encounter Procedures Procedure Name Priority Date/Time Associated Diagnosis Comments TSH REFLEX FREE T4 Routine 04/08/2020 1: 17 PM CDT Morbid obesity due to excess calories (HCC) Low back pain radiating to left lower extremity URIC ACID BLOOD Routine 04/08/2020 1:17 PM CDT Morbid obesity due to excess calories (HCC) Low back pain radiating to left lower extremity HEMOGLOBIN A1C Routine 04/08/2020 1:17 PM CDT Morbid obesity due to excess calories (HCC) Low back pain radiating to left lower extremity CBC W AUTO DIFFERENTIAL Routine 04/08/2020 1:17 PM CDT Morbid obesity due to excess calories (HCC) Low back pain radiating to left lower extremity COMPREHENSIVE METABOLIC PANEL Routine 04/08/2020 1:17 PM CDT Morbid obesity due to excess calories (HCC) Low back pain radiating to left lower extremity MAGNESIUM BLOOD Routine 04/08/2020 1:17 PM CDT Morbid obesity due to excess calories (HCC) Low back pain radiating to left lower extremity LIPID PROFILE Routine 04/08/2020 1:17 PM CDT Morbid obesity due to excess calories (HCC) Low back pain radiating to left lower extremity documented in this encounter Results * URIC ACID BLOOD (04/08/2020 1:17 PM CDT) Uric Acid 5.4 2.5 - 7.1 mg/dL [facility] INSURANCE BILL Comment:Therapeutic target f or gout patients: <6.0 Blood BLOOD SPECIMEN / Unknown 04/08/2020 1:17 PM CDT 04/08/2020 Narrative Resulting Agency Comment Lab Testing performed at: [facility] ??[facility] [id number] Nydia Armas MD LAB - CHEMISTRY O [place] [facility] INSURANCE BILL [address] [place] [address] * TSH REFLEX FREE T4 (04/08/2020 1:17 PM CDT) TSH 1.830 0.450 - 4.500 uIU/mL [facility] INSURANCE BILL Blood BLOOD SPECIMEN / Unknown 04/08/2020 1:17 PM CDT 04/08/2020 Narrative Resulting Agency Comment Lab Testing performed at: [facility] [address] [place], [place] [address] ??[facility] [id number] Nydia Armas MD LAB - CHEMISTRY O HANNAH Performing Organization Address [facility]/ZIP Co de Phone Number [facility] INSURANCE BILL [address] [place] [address] * MAGNESIUM BLOOD (04/08/2020 1:17 PM CDT) Magnesium 1.9 1.6 - 2.3 mg/dL [facility] INSURANCE BILL Blood BLOOD SPECIMEN / Unknown 04/08/2020 1:17 PM CDT 04/08/2020 Narrative Resulting Agency Comment Lab Testing performed at: [facility] [address] ??[facility] [id number] Nydia Armas MD LAB - CHEMISTRY O [place] Performing Organization Address City/[facility]/ZIP Co de Phone Number [facility] INSURANCE BILL [address] [place] [address] * LIPID PROFILE (04/08/2020 1:17 PM CDT) Cholesterol 144 100 - 199 mg/dL [facility] INSURANCE BILL Triglycerides 40 0 - 149 mg/dL [facility] INSURANCE BILL HDL Cholesterol 65 >39 mg/dL [facility] INSURANCE BILL VLDL Calculated 8 5 - 40 mg/dL [facility] INSURANCE BILL LDL Calculated 71 0 - 99 mg/dL [facility] INSURANCE BILL Comment NOT NEEDED [facility] INSURANCE BILL Comment:Ancillary determined the test is not needed. Blood BLOOD SPECIMEN / Unknown 04/08/2020 1:17 PM CDT 04/08/2020 Narrative Resulting Agency Comment Lab [facility] performed at: [facility] [id number] ??[facility] [id number] Nydia Armas MD LAB - CHEMISTRY O [place] Performing Organization Address [facility] de Phone Number [facility] INSURANCE BILL [address] [place] [address] * HEMOGLOBIN A1C (04/08/2020 1:17 PM CDT) Hemoglobin A1c 5.1 4.8 - 5.6 % [facility] INSURANCE BILL Comment: ? . ? Prediabetes: 5.7 - 6.4 ? Diabetes: >6.4 ? Glycemic control for adults with diabetes: <7.0 Blood BLOOD SPECIMEN / Unknown 04/08/2020 1:17 PM CDT 04/08/2020 Narrative Resulting Agency Comment Lab Testing performed at: [facility] ??[facility] [id number] Nydia Armas MD LAB - CHEMISTRY O [place] Performing Organization Address [facility] de Phone Number [facility] INSURANCE BILL [address] [place] [address] * COMPREHENSIVE METABOLIC PANEL (04/08/2020 1:17 PM CDT) Glucose 95 65 - 99 mg/dL [facility] INSURANCE BILL BUN 9 6 - 20 mg/dL [facility] INSURANCE BILL Creatinine 0.65 0.57 - 1.00 mg/dL [facility] INSURANCE BILL eGFR by MDRD 120 >59 mL/min/1.7 3 [facility] INSURANCE BILL eGFR by MDRD 139 >59 mL/min/1.7 3 [facility] INSURANCE BILL BUN/Creatinine Ratio 14 9 - 23 [facility] INSURANCE BILL Sodium 140 134 - 144 mmol/L [facility] INSURANCE BILL Potassium 4.1 3.5 - 5.2 mmol/L [facility] INSURANCE BILL Chloride 103 96 - 106 mmol/L [facility] INSURANCE BILL CO2 25 20 - 29 mmol/L [facility] INSURANCE BILL Calcium 9.0 8.7 - 10.2 mg/dL [facility] INSURANCE BILL Protein Total 6.5 6.0 - 8.5 g/dL [facility] INSURANCE BILL Albumin 4.4 3.9 - 5.0 g/dL [facility] INSURANCE BILL Globulin Total 2.1 1.5 - 4.5 g/dL [facility] INSURANCE BILL Albumin/Globulin Ratio 2.1 1.2 - 2.2 [facility] INSURANCE BILL Bilirubin Total 0.3 0.0 - 1.2 mg/dL [facility] INSURANCE BILL Alkaline Phosphatase 64 39 - 117 IU/L [facility] INSURANCE BILL AST 14 0 - 40 IU/L [facility] INSURANCE BILL ALT 13 0 - 32 IU/L [facility] INSURANCE BILL Blood BLOOD SPECIMEN / Unknown 04/08/2020 1:17 PM CDT 04/08/2020 Narrative Resulting Agency Comment Lab Testing performed at: [facility] ??[facility] [id number] Nydia Armas MD LAB - CHEMISTRY O RDERABLES [facility] INSURANCE BILL [address] [place] [address] * (ABNORMAL) CBC WITH DIFFERENTIAL (04/08/2020 1:17 PM CDT) WBC 6.0 3.4 - 10.8 x10E3/uL [facility] INSURANCE BILL RBC 3.83 3.77 - 5.28 x10E6/uL [facility] INSURANCE BILL Hemoglobin 12.1 11.1 - 15.9 g/dL [facility] INSURANCE BILL Hematocrit 36.0 34.0 - 46.6 % [facility] INSURANCE BILL MCV 94 79 - 97 fL [facility] INSURANCE BILL MCH 31.6 26.6 - 33.0 pg [facility] INSURANCE BILL MCHC 33.6 31.5 - 35.7 g/dL [facility] INSURANCE BILL RDW 11.6(L) 11.7 - 15.4 % [facility] INSURANCE BILL Platelet Count 207 150 - 450 x10E3/uL [facility] INSURANCE BILL Granulocytes % 60 Not Estab. % [facility] INSURANCE BILL Lymphocytes % 31 Not Estab. % [facility] INSURANCE BILL Monocytes % 7 Not Estab. % [facility] INSURANCE BILL Eosinophils % 1 Not Estab. % [facility] INSURANCE BILL Basophils % 1 Not Estab. % [facility] INSURANCE BILL Immature Cells NOT NEEDED [facility] INSURANCE BILL Comment:Ancillary determined the test is not needed. Granulocytes Absolute 3.7 1.4 - 7.0 x10E3/uL [facility] INSURANCE BILL Lymphocytes Absolute 1.9 0.7 - 3.1 x10E3/uL [facility] INSURANCE BILL Monocytes Absolute 0.4 0.1 - 0.9 x10E3/uL [facility] INSURANCE BILL Eosinophils Absolute 0.1 0.0 - 0.4 x10E3/uL [facility] INSURANCE BILL Basophils Absolute 0.0 0.0 - 0.2 x10E3/uL [facility] INSURANCE BILL Immature Granulocytes 0 Not Estab. % [facility] INSURANCE BILL Immature Granulocytes Absolute 0.0 0.0 - 0.1 x10E3/uL [facility] INSURANCE BILL nRBC NOT NEEDED [facility] INSURANCE BILL Comment:Ancillary determined the test is not needed. Comment Hematology NOT NEEDED [facility] INSURANCE BILL Comment:Ancillary determined the test is not needed. Blood BLOOD SPECIMEN / Unknown 04/08/2020 1:17 PM CDT 04/08/2020 Narrative Resulting Agency Comment Lab Testing performed at: [facility] ??[facility] [id number] Nydia Armas MD LAB - HEMATOLOGY ORDERABLES [facility] INSURANCE BILL [address] [place] [address] documented in this encounter Visit Diagnoses Diagnosis Morbid obesity due to excess calories (HCC)- Primary Low back pain radiating to left lower extremity documented in this encounter Care Teams Fabrication Department Supervisor Relationship Specialty [place] [address] [address] PCP - General 07/17/19 01/22/21 documented as of this encounter
--- OUTSIDE RECORDS SUMMARY | 2024-10-07 02:45 | XMS_ITS | Encounter Summary ---
Author Organization [facility] Address [address] [place] [address] Care Team Providers Care Lcac Radar Operator/Navigator Name Role Phone Unavailable Primary Care Provider Unavailabl e Reason for Visit * Auth/Cert Specialty Diagnoses / Procedures Referred By Deshawn t Referred To Contact Referral ID Status Reason Start Date Expiration Date Visits Re quested Visits Authorized [id number] 1 1 Encounter Details Date Type Department Care Team (Late st Contact Info) Description 05/08/2019 1:22 PM CDT Anesthesia Event [facility] [address] [place] [id number] Zachary Angel MD [address] [place] [address] [place] [address] Colette Rowell, SPONGE BUFFER-PROCESS STEWARD [address] [place] [address] [id number] Anesthesia Record Procedure Summary Procedure Name Responsible Anesthesiologist Anesthesia Start Time Anesthesia Stop Time EPIDURAL BLOCK Zachary Angel MD 05/08/19 1322 0005 Events Date Time Event Comment 05/08/2019 1322 An Start 1322 PT Reassessment 1327 Timeout Anesthesia part icipated in timeout at the time documented in the record by nursing. 1330 Test Dose 1332 Bolus Dose 1334 Electnc Sig 05/09/2019 0005 An Stop Meds Name Total lidocaine 1% - epinephrine 1:200,000 inj ection 6 mL lidocaine (XYLOCAINE) 1 % injection 2 mL fentaNYL 2 mcg/ml and ropivicaine 0.2% i n 0.9% nacl Epidural 130.8 mL * Agents No agents on file. * Blood No blood administrations on file. Lines, Drains, and Airways Type Details Placement Removal Peripheral IV Date: 05/07/19; Time : 1645; Orientation: Right; Placed By: Esme Arreola RN ; Tolerance: Well 05/07/19 1645 by Aria Arreola RN 05/09/19 1147 by Laura Farr RN Urethral Catheter 05/08/19; No; ; 2356 05/08/19 0000 by Veda Marsh RN 05/08/19 2356 by Veda Marsh RN Epidural Date: 05/08/19; Time : 1330; Placed By: Latasha Barry CRNA 05/08/19 1330 by Colette Rowell APRN-PROCESS STEWARD 05/09/19 0042 by Veda Marsh RN documented in this encounter Social History Tobacco Use Types Packs/Day Years Used Date Smoking Tobacco: Never Smokeless Tobacco: Never Alcohol Use Standard Drinks/Week Comments No 0 (1 standard drink = 0.6 oz pur e alcohol) Comments Yes Sex and Gender Information Value Date Recorded [...] No 05/07/2019 documented as of this encounter Progress Notes * Krysta Juarez APRN-PROCESS STEWARD - 05/10/2019 8:02 AM CDT ANESTHESIA POSTOP EVALUATION NOTE Procedure: EPIDURAL BLOCK Leti H Soto is a 28 year old female Patient Vitals for the past 6 hrs: Pain Rating Score #1 05/10/19 0234 3 Anesthesia Type: No value filed. * No Diagnosis Codes entered * Mental Status: awake, sufficiently recovered from acute administration of anesthesia to participatein the evaluation, neurologic status has returned to perioperative level and oriented Neuro Status: No numbess, tingling or visual disturbances Respiratory Function: natural Cardiac Function: stable Postop Pain: acceptable to the patient Postop Hydration: adequate Postop Nausea: none Assessment: no apparent anesthetic complications, patient tolerated procedure well and no evidence of recall Patient Disposition: Release from Anesthesia Care Non Reportable Improvement Section (otherwise blank): * Colette Rowell APRN-PROCESS STEWARD - 05/08/2019 1:53 PM CDT ANESTHESIA PREOPERATIVE EVALUATION NOTE Procedure: EPIDURAL BLOCK NPO status: Not Applicable (05/08/2019 1:00 PM) Vitals: Patient Vitals for the past 6 hrs: BP Temp Resp Pain Rating Score #1 05/08/19 1229 139/74 -- -- -- 05/08/19 1209 -- 97.3 ??F (36.3 ??C) 18 -- 05/08/19 1146 -- -- -- 6 05/08/19 1116 -- -- -- 8 ANESTHESIA PRE-EVALUATION NOTE Physical Exam: Orientation X3 Airway/Mallampati Score: III Mouth Opening Distance: 3 fingerwidths Neck ROM: full TM Distance: > 3 FB Teeth: normal Heart: regular rate rhythm Lungs: normal Abdomen Exam: obese Review of Systems: History of anesthetic complications: No Malignant Hyperthermia: No GERD: No Poor Exercise Tolerance: No Recent Chest Pain: No Shortness of Breath: No AICD/Pacemaker: No Renal Disease: No Diagnostic Tests: Lab(s) reviewed: Yes. ANESTHESIA PLAN ASA Score: 3 NPO Status: Continuous clear liquids Anesthesia Plan: epidural Planned Postop Destination: OB Anesthetic plan was discussed with: patient Anesthetic Plan discussion was: Consented The patient's procedural Anesthetic Plan was discussed with the anesthesiologist. BMI, Height, Weight Tobacco History Estimated body mass index is 53.26 kg/m?? as calculated from the following: Height as of this encounter: 1.676 m (5' 6 ). Weight as of this encounter: 149.7 kg (330 lb). Social History Tobacco Use Smoking Status Never Smoker Smokeless Tobacco Never Used Alcohol History Drug History Social History Substance and Sexual Activity Alcohol Use No ??? Alcohol/week: 0.0 standard drinks Social History Substance and Sexual Activity Drug Use No Outpatient Medications: Inpatient Medications: Outpatient Medications Marked as Taking for the 05/07/19 encounter (Hospital Encounter) Medication Sig Last Dose ??? docusate sodium Take 1 capsule by mouth 2 times daily 05/07/2019 at Unknown time ??? omeprazole Take 20 mg by mouth daily before breakfast 05/07/2019 at Unknown time ??? vitamin Take 1 tablet by mouth once daily 05/07/2019 at Unknown time Current Facility-Administered Medications Medication Dose Last Dose ??? 0.9% NaCl 3 mL 3 mL at 05/07/19 1750 And ??? 0.9% NaCl 1-10 mL ??? ceFAZolin 1 g Stopped at 05/08/19 1052 ??? dinoprostone 1 suppository ??? fentaNYL 2 mcg/ml and ropivicaine 0.2% in 0.9% nacl ??? lactated ringers ??? metoclopramide 5 mg ??? ondansetron (disintegrating) 4 mg ??? ondansetron 4 mg ??? oxytocin 0-20 donato-units/min 8 donato-units/min at 05/08/19 1014 ??? oxytocin 100-999 donato-units/min ??? prochlorperazine 5 mg ??? prochlorperazine 5 mg ??? terbutaline 0.25 mg ??? tranexamic acid 1,000 mg Allergies: Allergies Allergen Reactions ??? Tramadol Other Shaky, increased heart rate, sweating. ??? Penicillins Rash Relevant Problems No relevant active problems Problem List: Patient Active Problem List Diagnosis Date Noted ??? Encounter for induction of labor 05/07/2019 Priority: Not Prioritized ??? Status post fall 02/12/2019 Priority: Not Prioritized ??? Nausea/vomiting in 11/26/2018 Priority: Not Prioritized ??? Mitral valve prolapse 01/12/2016 Priority: Not Prioritized Dx in 2014; had palpitations. Started on metoprolol in 2013 and symptoms resolved. Never had hypertension. 01/21/2018: normal echo ??? Irregular periods/menstrual cycles 01/12/2016 Priority: Not Prioritized ??? Situational anxiety 01/12/2016 Priority: Not Prioritized ??? Psychophysiological insomnia 01/12/2016 Priority: Not Prioritized ??? Morbid obesity due to excess calories 01/12/2016 Priority: Not Prioritized ??? BMI 40.0-44.9, adult 01/12/2016 Priority: Not Prioritized Medical History: Past Medical History: Diagnosis Date ??? NEGATIVE PAST MEDICAL HISTORY - SEE PROBLEM LIST Surgical History: Past Surgical History: Procedure Laterality Date ??? Cholecystectomy, Laparoscopic 2008 ??? LASIK SURGERY Bilateral 11/2016 ??? [employer] Tooth Extraction Lab Results: Recent Labs Component Name 05/07/19 1652 WBC 10.0 HGB 11.8* HCT 36.1 PLTCOUNT 221 documented in this encounter Procedure Notes * Marianne Barry APRN-CRNA - 05/08/2019 1:56 PM CDTAssociated Order(s): Neuraxial Block Neuraxial Block Note Procedure Name: Neuraxial Block Patient Location: OB Pre-Procedure: Indications: at patient's request and labor analgesia Pre-Anesthetic Checklist: Patient identified, IV Checked, Risks and benefits discussed, Surgical consent verified, Monitors and equipment, Site examined, Pre-op evaluation done, Time-out performed, Informed consent obtained, Questions answered/anesthesia questions answered and Allergies reviewed Anticoagulation/ Anti-thrombosis status confirmed? Yes Supplemental O2: room air Monitors: continuous pluse ox and BP Patient Condition: awake Procedure: Block Type: Epidural Prep: Betadine Sterile Field: mask, cap/hat, sterile established and sterile gloves Approach: midline Epidural Block: Is this procedure for postop pain? No Needle Type: Tuohy Needle gauge: 18 G Needle length: 90 mm Placement Site: L4-L5 Number of Attempts: 1 Loss of Resistance: 14 Catheter length at skin (cm): 20 CSF Aspirated from catheter: No Blood Aspirated: No Test Dose: lidocaine 1.5% with 1-200,000 epinephrine 3 mL at 05/08/2019 1:30 PM Test Dose Response: No Epidural Infusion Medications: Bupivacaine: 0.125% with 2mcg/ml Fentanyl started at, 150 cc (mL) at 12 mL/hr Degree of difficulty: none Procedure Tolerance: tolerated well Sensory Level: T6 Motor Blockade: No Position post procedure: left uterine displacement Vital Signs: heart tones monitored and stable throughout., Vital signs moniitored and stable throughout. See nursing vitals flowsheet for details. Start Time: 05/08/2019 1:27 PM End Time: 05/08/2019 1:30 PM Total Time: 3 Staff: Anesthesia Provider: Marianne Barry APRN-CRNA - performed the procedure documented in this encounter Plan of Treatment Not on file documented as of this encounter Procedures Procedure Name Priority Date/Time Associated Diagnosis Comments NEURAXIAL BLOCK Routine 05/08/2019 1:56 PM CDT documented in this encounter Results * Neuraxial Block (05/08/2019 1:56 PM CDT) [...] ??3 Staff: ?? Anesthesia Provider: ??Marianne Barry APRN-PROCESS STEWARD ?? - ?? performed the procedure Zachary Angel MD GENERAL ANESTHESIA ORDERABLES documented in this encounter Visit Diagnoses Not on filedocumented in this encounter Administered Medications Inactive Administered Medications - up to 3 most recent administrations Medication Order MAR Action Action Date Dose Rate Site fentaNYL 2 mcg/ml and ropivicaine 0.2% in 0.9% nacl Epidural at 12 mL/hr, Epidural, CONTINUOUS, Starting on Mon05/08/19 at 1430, Until Rebecca 05/09/19 at 1006, Demand Dose: 3 mL Lock out: 15 minutes 1 hour limit: 24 mL $ New Bag/Syringe 05/08/2019 11:02 PM CDT 16 mL/hr 16 mL/hr $ New Bag/Syringe 05/08/2019 1:32 PM CDT 12 mL/hr 12 mL/ hr lidocaine (XYLOCAINE) 1 % injection Infiltration, Starting on Mon05/08/19 at 1356, Until Mon05/08/19 at 1356, Anesthesia Intra-op $ Given 05/08/2019 1:56 PM CDT 2 mL lidocaine 1% - EPINEPHrine 1:200,000 injection PRN, Starting on Mon05/08/19 at 1332, Until Rebecca 05/09/19 at 0228, Anesthesia Intra-op $ Given 05/08/2019 1:32 PM CDT 6 m L documented in this encounter
--- OUTSIDE RECORDS SUMMARY | 2024-10-07 02:45 | XMS_ITS | Encounter Summary ---
Author Organization [facility] Address [address] [facility] [place] [address] Care Team Providers Care Division Toll Wire Chief Name Role Phone Miladis Sosa PA-C Primary Care Provider [phone] Encounter Details Date Type Department Care Team (Late st Contact Info) Description 10/03/2022 2:00 PM SAP [facility] SECURITY Video Visit [facility] [address], [address] [place] [address] Morbid obesity due to excess calories (HCC) Social History Tobacco Use Types Packs/Day [...] - Inhaled Oxygen Concentration - - Weight 151.5 kg (334 lb) 10/03/2022 2:05 PM SAP [facility] SECURITY self-reported Height 167.6 cm (5' 6 ) 10/03/2022 2:05 PM SAP [facility] SECURITY s elf-reported Body Mass Index 53.91 10/03/2022 2:05 PM SAP [facility] [employer]UR[employer] documented in this encounter Functional Status Functional [...] of this encounter Progress Notes * Ayanna Vergara, DIRECTOR OF INDIVIDUAL GIVING - 10/03/2022 1:55 PM CST Today's visit was conducted virtually due to COVID-19 countermeasures. The patient has given verbalconsent to have today's visit conducted by this same means with treatment provided remotely. The patient verbally consents to the billing and collection practices of the provider's medical group. Patient location: Home This encounter was performed using: Audio and Video Total time spent on visit on date of encounter is: 55 minutes with 55 minutes spent in medical discussion Pre-Surgery Psychological Evaluation Name: Yesenia Soto Date of : 1990 Surgeon: Arjun Serna MD Date of Evaluation: 10/03/22 Surgical Decision and reason for surgery: Patient is considering bariatric surgery and all procedures were discussed. Patient is interested in the VSG. She reported a weight struggle since she was 8 years old and has been on every diet imaginable. 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 At that time she weighed over 400 pounds. She lost to 250 pounds, but then became with her daughter and gained to 330 pounds. Patient did the non surgical program and lost again to 220 pounds. She currently weighs 334 pounds. Patient feels weight regain over the past 18 months is due to some binge type eating as a result of the restrictedness the non surgical program had led her t o. 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 Current Weight: 334 pounds BMI: 53.91 Goal Weight: 220 pounds Family/Home/Support Environment: Patient has a three years daughter. She also reported support from her partner and parents. Patientreported she has a co-worker who has had bariatric surgery. 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 Patient has no hx of work-adjustment difficulties on any of her jobs. Mental Health Issues: Patient reported PPD and started Prozac for this about 3 years ago. She started Wellbutrin to help with weight loss and cravings. Patient reported she has a counselor who she sees at least 2x a month. Patient denied auditory or visual hallucinations; and denied losing blocks of time where she can not remember who or where she is. Patient has never been hospitalized for psychiatric reasons, and there is no history of prior suicide/homicide ideation or attempt. Patient was informed about possible hair thinning, loose skin and recommended post op recommended appointments. Patient is not currently and has been counseled to avoid for a minimum of one (1) year following bariatric surgery. Substance Misuse Issues: Current alcohol use: Once a month, a glass or two. Patient is aware of recommendation to abstain from alcohol for 1 year post op surgery Current medicinal/recreational drugs use: none Current tobacco use: none She has no problems related to alcohol, drug or prescription mis-use Weight and Pucpsm-Bppy-Rylgzgj History Family Hx of Obesity: Both parents Patient Obese since: 8 years old High school weight: High 200-mid 300's Heaviest Weight: 421 pounds Previous Weight Loss Efforts: all of the above As far as what she recognizes as her barriers to weight loss, patient identified: boredom, skippingmeals which then leads to a bigger meal at the end of the day. For the past 3 weeks she has been using an eva to journal her food and noticed she does not eat a lot of carbohydrates, cooks more at home, eats outs 1 times a week and is eating at least 3 meals a day. Patient has been using [employer] Endeavor barsor Clear Advantage Collar bars for either a snack, meal replacement or sometimes a sweet craving. Food screenin. Within the past 12 months, you worried that your food would run out before you got the money to buy more: Never true 2. Within the past 12 months, the food you bought just didn't last and you didn't have the money toget some more: Never true Patterns of Distorted Eating: Enemas/Laxatives/Diuretic Misuse: never Purging/induced Vomiting: never Anorexia/Restricting: never Emotional Eating: denies Exercise and other sources of physical activity: Weather permitting walks and also on the treadmill(30 minutes or longer). Patient has also been using an eva for stretching. When asked how the surgery would be different than past weight loss attempts, patient replied, It feels so much more of a bigger decision then a diet plan. I am at that point where my daughter is 3 and I don't want to put my food issues on her. Realistic verse unrealistic expectations for weight loss, the surgery and adjustment after surgery were discussed. Making manageable, realistic changes was encouraged. The concept of weight regain and how a bariatric patient could regain weight post surgery was discussed. To avoid weight regain, patient was encouraged to maintain accountability with weekly weighing, monitoring protein and calorieintake and seeking out support when needed. Surgery Perspective/Understanding: Patient appears informed regarding the post-op dietary requirements and appears to have ample understanding of the consequences of not following all post-op requirements exactly as prescribed. Patient reports realistic surgical goals and expectations. The patient appears committed to the appropriate work-up for the procedure and for continuing long-term postoperative medical management, and appears to be adequately prepared for the potential complications of the procedure. The patient has completed behavioral interventions of self-monitoring andhas been provided tools to support weight loss or weight loss maintenance through individual, telephone counseling calls and group based counseling sessions. Mental Status Patient's appearance is appropriate Patient is oriented to time, place, person and situation Behavior is described as unremarkable Speech is appropriate Patients affect is appropriate Patient's mood is euthymic Memory is intact Mental Awareness is clear Patient is of average intelligence Attitude is cooperative Attention is focused Reasoning is good Impulse control is good Judgement is good Insight is good Patient's self-perception is realistic Thought process is logical Thought content is unremarkable DSM-5: Depressive Disorder Unspecified F32.9 Obesity E66.01 Summery/Recommendations Patient appears to be a low surgical risk and an appropriate candidate for this surgery based on this interview. Patient noted no current compliance issues or any anticipated issues that would prevent adherence to protocol after surgery. There do not appear to be any contraindications. Psychological Clearance is therefore granted. Ayanna Alarcon LPC, CBC Licensed Professional Counselor Certified Bariatric Counselor Mental Health Review ?? Cleared,_X__ ?? Not cleared, additional MH visit(s) required ___ ?? Continue with Medically Managed Diet visits ?? Bariatric Case Conference review required ___ ?? Follow up scheduled ____ GRC SECURITY documented in this encounter Plan of Treatment Not on file documented as of this encounter Visit Diagnoses Diagnosis Morbid obesity due to excess calories (HCC)- Primary documented in this encounter Care Teams Division Toll Wire Chief Relationship Specialty Start Date End Date Miladis Sosa, PAShayyC [address] [place] [address] PCP - General Physician Cold Strip Feeder 02/26/21 10/23/22 documented as of this encounter
--- OUTSIDE RECORDS SUMMARY | 2024-10-07 02:45 | XMS_ITS | Encounter Summary ---
Author Organization [facility] Address [address] [facility] [place] [address] Care Team Providers Care Continuous Improvement Lead Name Role Phone Crystal Cedeno Primary Care Provider [phone] Reason for Visit * Reason Onset Date Comments Diet 12/08/2022 Encounter Details Date Type Department Care Team (Late st Contact Info) Description 12/08/2022 Telephone [facility] [address] [place] [address] [phone] Mar House, ARABELLA/SHARONN Diet Social History Tobacco Use Types Packs/Day Years [...] Coronavirus/COVID-19? 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 Left message with RD contact information. Pt encouraged to call RD with any questions or concerns, as needed. documented in this encounter Plan of Treatment Not on file documented as of this encounter Visit Diagnoses Not on filedocumented in this encounter Care Teams Continuous Improvement Lead Relationship Specialty Start Date End Date VinceCrystal grigsby [address] [place] [address] PCP - General Nurse Practitioner 10/24/22 documented as of this encounter
--- OUTSIDE RECORDS SUMMARY | 2024-10-07 02:45 | XMS_ITS | Encounter Summary ---
Author Organization [facility] Address [address] [address] Care Team Providers Care Geriatric Physical Therapist Name Role Phone Malena Munoz MD Primary Care Provider [phone] Encounter Details Date Type Department Care Team (Late st Contact Info) Description 09/27/2020 Orders Only [facility] [address] [id number] Krista Bravo, LENS GRINDER-SUPERVISOR HANGING AND TRIMMING [address] [address] Contact with or exposure to viral disease Social History Tobacco Use Types Packs/Day Years [...] No 05/07/2019 documented as of this encounter Plan of Treatment Not on file documented as of this encounter Visit Diagnoses Diagnosis Contact with or exposure to viral disease- Primary Contact with or exposure to other viral diseases documented in this encounter Care Teams Geriatric Physical Therapist Relationship Specialty [place] [address] [place] [address] PCP - General 07/17/19 01/22/21 documented as of this encounter
--- OUTSIDE RECORDS SUMMARY | 2024-10-07 02:45 | XMS_ITS | Encounter Summary ---
Author Organization [facility] Address [address] [place] [address] Care Team Providers Care Gateman Name Role Phone Crystal Cedeno Primary Care Provider [phone] Reason for Visit * Auth/Cert (Routine) Specialty Diagnoses / Procedures Referred By Contac t Referred To Contact Diagnoses Morbid (severe) obesity due to excess calories (HCC) Hiatal hernia Procedures OK LAP SLEEVE GASTRECTOMY OK LAP PARAESOPHAG AMY REPAIR Referral ID Status Reason Start Date Expiration Date Visits Re quested Visits Authorized [id number] 1 1 Encounter Details Date Type Department Care Team (Late st Contact Info) Description 12/14/2022 10:57 AM CDT Anesthesia Event [facility] - Perioperative Surgery [address] [place] [address] [place] [address] [place] [address] Melvin Bhardwaj MD [address] [place] [id number] Anesthesia Record Procedure Summary Procedure Name Responsible Anesthesiologist Anesthesia Start Time Anesthesia Stop Time LAPAROSCOPIC SLEEVE GASTRECTOMY (Abdomen) Orly Hobbs DO 12/14/22 1057 12/14/22 1234 Events Date Time Event Comment 12/14/2022 0955 1057 An Start 1103 An Start Data 1107 PT Reassessment 1107 An Induction 1109 An Intubation 1124 Timeout Anesthesia part icipated in timeout at the time documented in the record by nursing. 1127 Insufflation 1222 An Emergence 1224 Extubation 1229 Electnc Sig This record is electronically signed by the providers listed under staff. 1229 an stop data 1229 ANPTO2 1234 An Stop Meds Name Total midazolam 2 mg/2mL injection 2 mg fentaNYL 100 mcg/2mL injection 200 mcg lidocaine 1% (PF) injection (50 mg/5mL) 100 mg propofol 200 mg/20mL injection 200 mg rocuronium 50 mg/5mL injection 90 mg ondansetron 4 mg/2mL injection 8 mg dexamethasone 4 mg/mL injection 8 mg ceFAZolin (Ancef) 3,000 mg in 115 mL IVP B 3 g labetalol 20 mg/4mL injection 10 mg dexmedeTOMIDine 200 mcg/2mL vial 10 mcg sugammadex 200 mg/2mL injection 200 mg lactated ringers infusion 1,200 mL * Agents Name Exp. Sevoflurane Exp. N2O O2 Air Insp. Sevoflurane * Blood No blood administrations on file. Lines, Drains, and Airways Type Details Placement Removal Peripheral IV Date: 12/14/22; Time : 923; Orientation: Right; Placed By: Tianna NOBLE; Tolerance: Well 12/14/22 0924 by Velia Edmond RN 12/15/22 1555 by Juliet Holman RN ETT Date: 12/14/22; Time : 1108; Placed By: STACI Almonte; Vent: easy with oral airway mask; Induction: Standard IV; Blade Type: Garsia; Blade Size: 2; Laryngoscopy View: Grade 1 (full cords); Intubation Adjuncts: Stylet; Tube: Endotracheal Tube; Placement: Oral; Tube Type: Cuffed-inflated; Tube Size(mm): 7 MM; Depth of Insertion: 22 CM; Measured From: lips; Attempts: 1; Cuff Infated: Air; Verified By: Direct visualization, Bilateral breath sounds, Chest Auscultation, CO2 Monitor 12/14/22 1109 by Ana Culver APRN-CRNA 12/14/22 1224 by Ana Culver APRN-CRNA Gastric Tube 12/14/22; 1112; OGT (calibration); Mouth (Oral); 12/14/22; 1148 12/14/22 1112 by Ana Culver APRN-CRNA 12/14/22 1148 by Ana Culver APRN-RENEE Procedural Site (Incision) 12/14/22; 1125; Abdomen; Laparoscopic; 12/15/22; 223212/14/22 1125 by Perla Morel RN 12/15/222232 by Generic, Auto Release documented in this encounter Social History Tobacco [...] and heating? Not hard at all 12/14/2022 [facility] [place] [facility] - Occupational [...] Recorded In the last 10 days, have aleks u been in contact with someone who was confirmed or suspected to have Coronavirus/COVID-19? 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 documented as of this encounter Functional Status [...] as of this encounter Progress Notes * Ana Culver APRN-ORACLE HYPERION CONSULTANT - 12/14/2022 12:34 PM CDT ANESTHESIA POSTOP EVALUATION NOTE Procedure: LAPAROSCOPIC SLEEVE GASTRECTOMY (Abdomen) Leti Soto is a 31 year old female Patient Vitals for the past 6 hrs: BP Temp Pulse Resp SpO2 Pain Rating Score #1 Pain Scale/Observation 12/14/22 0920 125/67 97.8 ??F (36.6 ??C) 76 18 99 % 0 N Anesthesia Type: general ETT * No Diagnosis Codes entered * Mental Status: sufficiently recovered from acute administration of anesthesia to participate in theevaluation, neurologic status has returned to preoperative level, arousable, awake, oriented and alert Neuro Status: No numbness, tingling or visual disturbances Respiratory Function: natural Cardiac Function: stable Postop Pain: acceptable to the patient Postop Hydration: adequate Postop Nausea: none Assessment: no apparent anesthetic complications, patient tolerated procedure well and no evidence of recall Patient Disposition: Release from Anesthesia Care NOTABLE EVENTS: No notable events documented. * Melvin Bhardwaj MD - 12/14/2022 9:50 AM CDT ANESTHESIA PREOPERATIVE EVALUATION NOTE Procedure: LAPAROSCOPIC GASTRECTOMY (LONGITUDINAL/SLEEVE), LAPAROSCOPIC HIATAL HERNIA (Abdomen) NPO status: *Except Oral meds with H2O (12/14/2022 9:18 AM) Last Solids/Dairy: 0000 (12/14/2022 9:18 AM) Last Clear Liquids: 0700 (12/14/2022 9:18 AM) Vitals: Patient Vitals for the past 6 hrs: BP Temp Pulse Resp SpO2 Pain Rating Score #1 12/14/22 0920 125/67 97.8 ??F (36.6 ??C) 76 18 99 % 0 LMP: Patient's last menstrual period was 11/30/2022 (approximate). OB Status: Intrauterine Device ANESTHESIA PRE-EVALUATION NOTE History of Present Illness: 31yf hx/o morbid obesity here today for lap gastrectomy Physical Exam: Orientation X3 Airway/Mallampati Score: III Mouth Opening Distance: 3 fingerwidths Neck ROM: full TM Distance: > 3 FB Teeth: normal Heart: normal - S1 S2 Lungs: clear to ausculation bilaterally Abdomen Exam: obese Review of Systems: History of anesthetic complications: No Malignant Hyperthermia: No GERD: No Recent Chest Pain: No Shortness of Breath: No AICD/Pacemaker: No Renal Disease: No Diagnostic Tests: ECG(s) reviewed: Yes Lab(s) reviewed: Yes. ANESTHESIA PLAN ASA Score: 3 NPO Status: No liquids within 2 hours and No solids for 8 hours Anesthesia Plan: general ETT Planned Induction: intravenous Planned Postop Destination: PACU Anesthetic plan was discussed with: patient Anesthetic Plan discussion was: Consented BMI, Height, Weight Tobacco History Estimated body mass index is 56.65 kg/m?? as calculated from the following: Height as of this encounter: 1.651 m (5' 5 ). Weight as of this encounter: 154.4 kg (340 lb 6.4 oz). Social History Tobacco Use Smoking Status Never Smokeless Tobacco Never Alcohol History Drug History Social History Substance and Sexual Activity Alcohol Use No ??? Alcohol/week: 0.0 standard drinks Social History Substance and Sexual Activity Drug Use No Outpatient Medications: Inpatient Medications: Outpatient Medications Marked as Taking for the 12/14/22 encounter (Hospital Encounter) Medication Sig Last Dose ??? buPROPion XL 24hr Take 1 (one) tablet by mouth every morning 12/14/2022 at 0700 ??? FLUoxetine Take 3 (three) capsules by mouth once daily 12/14/2022 at 0700 ??? levonorgestrel by Intrauterine route as directed 12/14/2022 Current Facility-Administered Medications Medication Dose Last Admin ??? ceFAZolin 3 g ??? lactated ringers ??? lactated ringers ??? scopolamine 1 patch 1 patch at 12/14/22 0914 And ??? scopolamine patch placement confirmation Allergies: Allergies Allergen Reactions ??? Tramadol Other Shaky, increased heart rate, sweating. ??? Penicillins Rash Relevant Problems No relevant active problems Problem List: Patient Active Problem List Diagnosis Date Noted ??? Anxiety and depression 07/02/2020 Priority: Not Prioritized ??? Encounter for induction of labor 05/07/2019 Priority: Not Prioritized ??? Status post fall 02/12/2019 Priority: Not Prioritized ??? Nausea/vomiting in 11/26/2018 Priority: Not Prioritized ??? Mitral valve prolapse 01/12/2016 Priority: Not Prioritized Dx in 2013; had palpitations. Started on metoprolol in 2013 and symptoms resolved. Never had hypertension. 01/21/2018: normal echo ??? Irregular periods/menstrual cycles 01/12/2016 Priority: Not Prioritized ??? Situational anxiety 01/12/2016 Priority: Not Prioritized ??? Psychophysiological insomnia 01/12/2016 Priority: Not Prioritized ??? Morbid obesity due to excess calories ([facility]) 01/12/2016 Priority: Not Prioritized ??? BMI 40.0-44.9, adult (CMS/HCC) 01/12/2016 Priority: Not Prioritized Medical History: Past Medical History: Diagnosis Date ??? BMI 50.0-59.9, adult (CMS/HCC) ??? Depression Post ??? NEGATIVE PAST MEDICAL HISTORY - SEE PROBLEM LIST Surgical History: Past Surgical History: Procedure Laterality Date ??? Cholecystectomy, Laparoscopic 2008 ??? ENDOSCOPY, UPPER N/A 11/17/2022 N/A; ESOPHAGOGASTRODUODENOSCOPY (EGD) DIAGNOSTIC ??? LASIK SURGERY Bilateral 11/2016 ??? 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 Intrauterine Device OB History Para Term AB Living 1 1 1 0 0 1 SAB IAB Ectopic Multiple Live Births 0 0 0 0 1 # Outcome Date GA Lbr Bimal/2nd Weight Sex Delivery Anes PTL Lv 1 Term 05/09/19 39w3d 3315 g (7 lb 4.9 oz) F Vag-Spont IV Narcotic, EPI N CHICO Name: SEBASTIAN,BABY GIRL LETI Apgar1: 9 Apgar5: 9 Covid Vaccine: Lab Results: Recent Labs Component Name 12/14/22 0915 HCGURINE Negative Recent Labs Component Name 12/07/22 1258 WBC 9.1 RBC 3.72* HCT 34.3* HGB 11.7* PLTCOUNT 234 MCV 92.2 MCH 31.5 MCHC 34.1 MPV 10.2 Recent Labs Component Name 12/14/22 0916 12/07/22 1258 SODIUM - 136 POTASSIUM 4.7 4.0 CALCIUM - 8.5 CHLORIDE - 110* CO2 - 20* GLUCOSE - 83 BUN - 25* CREATININE - 0.60 No results found for requested labs within last 120 days. Recent Labs Result Component Current Result Albumin 3.8 (12/07/2022) Alkaline Phosphatase 70 (12/07/2022) ALT 12 (12/07/2022) Anion Gap 6 (L) (12/07/2022) AST 17 (12/07/2022) Bilirubin Total 0.1 (L) (12/07/2022) eGFR by CKD-EPI >90 (12/07/2022) documented in this encounter Procedure Notes * Ana Culver APRN-ORACLE HYPERION CONSULTANT - 12/14/2022 11:32 AM CDTAssociated Order(s): ETT Placement Endotracheal Tube Placement: Patient Location: OR. Intubation Event Date/Time: 12/14/2022 11:09 AM Procedure: intubation ([id number]). Procedure Section: Sedation: under general anesthesia. Indications for Airway Management: anesthesia Induction: standard IV Patient Position: sniffing and ramp/troop pillow Mask Ventilation: easy with [...] auscultation and CO2 monitor Tube secured with: adhesive tape. Dentition unchanged? Yes Difficult Airway? No. Procedure Start Time: 12/14/2022 11:09 AM. Staff Section Anesthesia Provider: Ana Culver APRN-CRNA Provider #1: Ramya Tavera RN, Performed the procedure. Additional Comments: Successful DL x1 attempt by SRNA. Arti Lips and teeth as preop. documented in this encounter Miscellaneous Notes * Anesthesia Transfer of Care - Ana Culver APRN-CRNA - 12/14/2022 12:33 PM CDT ANESTHESIA TRANSFER OF CARE NOTE Today's Date: 12/14/2022 Date of : 1990 Patient: Leti Soto Procedure(s): LAPAROSCOPIC SLEEVE GASTRECTOMY Surgeon(s): Primary: Anthony Martell MD Preop Diagnosis: * No Diagnosis Codes entered * Pre-op Meds (From admission, onward) Start Stop Status Route Frequency Ordered 12/14/22 1125 0.9% nacl irrigation solution 12/14 1125 Completed CONTINUOUS PRN 12/14/22 1131 12/14/22 0915 acetaminophen (Tylenol) tablet 1,000 mg 12/14 0914 Completed PO ONCE 12/14/22 0902 12/14/22 0915 ceFAZolin (Ancef) 3,000 mg in 115 mL IVPB 12/14 1057 Completed IV PRE-OP ONCE 12/14/22 0902 12/14/22 0915 celecoxib (CeleBREX) capsule 400 mg 12/14 0914 Completed PO PRE-OP ONCE 12/14/22 0902 12/14/22 1115 dexAMETHasone (Decadron) injection -- Sent IV PRN 12/14/22 1128 12/14/22 1212 dexmedeTOMIDine (Precedex) injection -- Sent IV PRN 12/14/22 1212 12/14/22 0915 famotidine (Pepcid) injection 20 mg 12/14 0914 Completed IV PRE-OP ONCE 12/14/22 0902 12/14/22 1125 fentaNYL (PF) (Sublimaze) injection -- Sent IV PRN 12/14/22 1125 12/14/22 0915 heparin injection 5,000 Units 12/14 0914 Completed SC PRE-OP ONCE 12/14/22 0902 12/14/22 1204 labetalol (Normodyne; Trandate) injection -- Sent IV PRN 12/14/22 1204 12/14/22 0915 lactated ringers infusion 12/13 0914 Dispensed IV CONTINUOUS 12/14/22 0902 12/14/22 0915 lactated ringers infusion 12/13 0914 Dispensed IV PRE-OP CONTINUOUS 12/14/22 0902 12/14/22 1107 lidocaine PF (Xylocaine MPF) 1 % injection -- Sent IV PRN 12/14/22 1127 12/14/22 0915 lidocaine PF (Xylocaine MPF) 1 % injection 0.5 mL 12/14 0915 Completed INFILTRATION PRE-OP ONCE 12/14/22 0902 12/14/22 1057 midazolam (Versed) injection -- Sent IV PRN 12/14/22 1127 12/14/22 1140 ondansetron (Zofran) injection -- Sent IV PRN 12/14/22 1140 12/14/22 1107 propofol (Diprivan) injection -- Sent IV PRN 12/14/22 1127 12/14/22 1124 rocuronium (Zemuron) injection -- Sent IV PRN 12/14/22 1124 12/14/22 0915 scopolamine (Transderm-Scop) 1 patch See Hyperspace for full Linked Orders Report. 12/17 0914 Dispensed TD PRE-OP ONCE 12/14/22 0902 12/14/22 0915 scopolamine patch placement confirmation See Hyperspace for full Linked Orders Report. 12/13 0859 Verified TD 2 TIMES DAILY 12/14/22 0902 12/14/22 1220 sugammadex (Bridion) injection -- Sent IV PRN 12/14/22 1220 * No Diagnosis Codes entered * . Allergies Allergen Reactions ??? Tramadol Other Shaky, increased heart rate, sweating. ??? Penicillins Rash Vitals: No data found. Lines, Drains, and Airways Type Details Placement Removal Peripheral IV Date: 12/14/22; Time: 09; Orientation: Right; Location: Hand; Placed By: Tianna NOBLE;Gauge: 18 Gauge; Locals: Trans Dermal; Tolerance: Well 12/14/22 0924 by Velia Edmond RN ETT Date: 12/14/22; Time: 110; Placed By: STACI Almonte; Vent: easy with oral airway mask; Induction: Standard IV; Blade Type: Garsia; Blade Size: 2; Laryngoscopy View: Grade 1 (full cords); Intubation Adjuncts: Stylet; Tube: Endotracheal Tube; Placement: Oral; Tube Type: Cuffed-inflated; Tube Size(mm): 7 MM; Depth of Insertion: 22 CM; Measured From: lips; Attempts: 1; Cuff Infated: Air; Verified By: Direct visualization, Bilateral breath sounds, Chest Auscultation, CO2 Monitor 12/14/22 1109 by Ana Culver APRN-CRNA 12/14/22 1224 by Ana Culver APRN-CRNA Gastric Tube 12/14/22; 1112; OGT (calibration); Mouth (Oral); 12/14/22; 1148 12/14/22 1112 by Ana Culver APRN-CRNA 12/14/22 1148 by Ana Culver APRN-CRNA Intraprocedure I/O Totals Intake lactated ringers infusion 1200.00 mL Total Intake 1200 mL Patient Transfer Location: PACU Transport Airway: spontaneous respirations and supplemental O2 Complications: None Handoff Given? Yes Checklist or Protocol - The rodríguez handoff elements that must be included in the transfer of care checklist include: 1. Identification of patient. 2. Identification of responsible practitioner (PACU nurse or advanced practitioner). 3. Discussion of pertinent medical history. 4. Discussion of the surgical/procedure course (procedure, reason for surgery, procedure performed). 5. Intraoperative anesthetic management and issue/concerns. 6. Expectations/Plans for the early post-procedure period. 7. Opportunity for questions and acknowledgement of understanding of report from the receiving PACUteam. STACI Almonte documented in this encounter Plan of Treatment Not on file documented as of this encounter Procedures Procedure Name Priority Date/Time Associated Diagnosis Comments ENDOTRACHEAL TUBE NOTE Routine 12/14/2022 11:32 AM CDT documented in this encounter Results * ETT LINE PERFORMABLE (12/14/2022 11:32 AM CDT) Narrative Ana Culver APRN-CRNA - 12/14/2022 11:32 AM CDT Ana Culver APRN-CRNA ? 12/14/2022 11:33 AM Endotracheal Tube Placement: ? Patient Location: OR. Intubation Event Date/Time: ??12/14/2022 11:09 AM Procedure: intubation ([id number]). Procedure Section: ?? Sedation: under general anesthesia. [...] Arti Lips and teeth as preop. Orly L Dando DO GENERAL ANESTHESIA O RDERABLES documented in this encounter Visit Diagnoses Not on filedocumented in this encounter Administered Medications Inactive Administered Medications - up to 3 most recent administrations Medication Order MAR Action Action Date Dose Rate Site ceFAZolin (Ancef) 3,000 mg in 115 mL IVPB 3,000 mg (3 g), at 230 mL/hr, Intravenous, PRE-OP ONCE, 1 dose, On Mon12/14/22 at 0915, Administer 30 minutes prior to surgical incision. Refrigerate, Indication for anti-infective therapy: Surgical prophylaxis, Pre-op $ Given 12/14/2022 10:57 AM CDT 3 g dexAMETHasone (Decadron) injection Intravenous, PRN, Starting on Mon12/14/22 at 1115, Until Mon12/14/22 at 1234, Anesthesia Intra-op $ Given 12/14/2022 11:15 AM CDT 8 mg dexmedeTOMIDine (Precedex) injection Intravenous, PRN, Starting on Mon12/14/22 at 1212, Until Mon12/14/22 at 1234, Anesthesia Intra-op $ Given 12/14/2022 12:20 PM CDT 4 mcg $ Given 12/14/2022 12:17 PM CDT 2 mcg $ Given 12/14/2022 12:12 PM CDT 4 mcg fentaNYL (PF) (Sublimaze) injection Intravenous, PRN, Starting on Mon12/14/22 at 1125, Until Mon12/14/22 at 1234, Anesthesia Intra-op $ Given 12/14/2022 11:55 AM CDT 50 mcg $ Given 12/14/2022 11:25 AM CDT 50 mcg $ Given 12/14/2022 11:05 AM CDT 100 mcg labetalol (Normodyne; Trandate) injection Intravenous, PRN, Starting on Mon12/14/22 at 1204, Until Mon12/14/22 at 1234, Anesthesia Intra-op $ Given 12/14/2022 12:04 PM CDT 5 mg $ Given 12/14/2022 11:53 AM CDT 5 mg lactated ringers infusion at 20 mL/hr, Intravenous, PRE-OP CONTINUOUS, Starting on Mon12/14/22 at 0915, Until Mon12/14/22 at 1416, Please place order for second bag of LR for all robotic surgeries, and all carotid endarterectomies., Pre-op $ New Bag/Syringe 12/14/2022 11:57 AM CDT $ New Bag/Syringe 12/14/2022 10:57 AM CDT lidocaine PF (Xylocaine MPF) 1 % injection Intravenous, PRN, Starting on Mon12/14/22 at 1107, Until Mon12/14/22 at 1234, Anesthesia Intra-op $ Given 12/14/2022 11:07 AM CDT 100 mg midazolam (Versed) injection Intravenous, PRN, Starting on Mon12/14/22 at 1057, Until Mon12/14/22 at 1234, Anesthesia Intra-op $ Given 12/14/2022 10:57 AM CDT 2 mg ondansetron (Zofran) injection Intravenous, PRN, Starting on Mon12/14/22 at 1140, Until Mon12/14/22 at 1234, Anesthesia Intra-op $ Given 12/14/2022 12:09 PM CDT 4 mg $ Given 12/14/2022 11:40 AM CDT 4 mg propofol (Diprivan) injection Intravenous, PRN, Starting on Mon12/14/22 at 1107, Until Mon12/14/22 at 1234, Anesthesia Intra-op $ Given 12/14/2022 11:07 AM CDT 200 mg rocuronium (Zemuron) injection Intravenous, PRN, Starting on Mon12/14/22 at 1124, Until Mon12/14/22 at 1234, Anesthesia Intra-op $ Given 12/14/2022 11:37 AM CDT 20 mg $ Given 12/14/2022 11:24 AM CDT 20 mg $ Given 12/14/2022 11:08 AM CDT 50 mg sugammadex (Bridion) injection Intravenous, PRN, Starting on Mon12/14/22 at 1220, Until Mon12/14/22 at 1234, Anesthesia Intra-op $ Given 12/14/2022 12:20 PM CDT 200 mg documented in this encounter Care Teams Gateman Relationship Specialty Start Date End Date Crystal Cedeno [address] [place] [address] PCP - General Nurse Practitioner 10/24/22 documented as of this encounter
--- OUTSIDE RECORDS SUMMARY | 2024-10-07 02:45 | XMS_ITS | Encounter Summary ---
Author Organization [facility] Address [address] [place] [address] Care Team Providers Care Maintenance And Operations Supervisor Name Role Phone Crystal Cedeno Primary Care Provider [phone] Reason for Visit * Reason Onset Date Comments Diet 12/26/2022 Encounter Details Date Type Department Care Team (Late st Contact Info) Description 12/26/2022 Telephone [facility] [address], [address] [place] [address] Paty Owens, RD/LDN Diet Social History Tobacco Use Types Packs/Day [...] and heating? Not hard at all 12/14/2022 [facility] [place] [facility] - Occupational Stress [...] Coronavirus/COVID-19? 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 No answer, LVM with [facility] contact information. documented in this encounter Plan of Treatment Not on file documented as of this encounter Visit Diagnoses Not on filedocumented in this encounter Care Teams Maintenance And Operations Supervisor Relationship Specialty Start Date End Date Crystal Cedeno [address] [place] [address] PCP - General Nurse Practitioner 10/24/22 documented as of this encounter
--- OUTSIDE RECORDS SUMMARY | 2024-10-07 02:45 | XMS_ITS | Encounter Summary ---
Author Organization [facility] Address [address] [place] [address] Care Team Providers Care Tile Roofer Name Role Phone Crystal Cedeno Primary Care Provider [phone] Encounter Details Date Type Department Care Team (Latest Contact Info) Description 12/07/2022 12:07 PM CDT - 12/07/2022 11:59 PM CDT Hospital Encounter [facility] [address] [place] [address] [place] [address] [place] [address] Discharge Disposition: Home or Self Care Social History Tobacco Use Types Packs/Day Years [...] Coronavirus/COVID-19? 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 encounter Last Filed Vital Signs Vital Sign Reading Time Taken Comments Blood Pressure 139/80 12/07/2022 1:08 PM CDT Pulse 83 12/07/2022 1:08 PM CDT Temperature 36.6 ??C (97.8 ??F) 12/07/2022 1:08 PM CD T Respiratory Rate - - Oxygen Saturation 99% 12/07/2022 1:08 PM CDT Inhaled Oxygen Concentration - - Weight - - Height - - Body Mass Index - - documented in this encounter Functional Status Functional [...] No 05/07/2019 documented as of this encounter Discharge Instructions * Patient Instructions* Vero Love RN - 12/07/2022 1:08 PM CDT Date of surgery: 12/14/2022 Arrival Time: 0700 Time of surgery: 0900 You will be notified if your arrival time changes Please report to the [facility]. Take the elevators across from outpatient registration to the second floor, exit left and enter the Outpatient Surgery waiting room. Sign in and beseated. Bring a copy of your living will or power of claim attorney form if we do not have a current copy. Day of surgery instructions Do not eat or drink anything after midnight unless directed by your surgeon (no gum, mints, or candy). You may brush your teeth, swish and spit. No tobacco products after midnight and avoid alcohol 24 hours prior to surgery. If you use a CPAP/BiPAP machine, please bring it with you on the day of surgery (for overnight stay). Do not bring or wear jewelry (including body piercings). Leave valuables at home Bring your eyeglasses. Do not wear contacts. Take a shower using the antibacterial soap, following the instructions given. Dress in clean clothing appropriate to wear after your surgery. Arrange for a responsible adult to bring you to the hospital, and to drive you home. 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 Leave weapons at home (pocket knives, sharps, guns, pepper spray, etc.). If you are having any problems on the day of surgery, please call the Ambulatory Surgery desk at [phone]. You will not be required to have a COVID test prior to surgery. However, if you develop any symptoms of COVID 19 such as new or worsening cough, shortness of breath, loss of taste/smell, headache, sore throat, body aches, OR have a significant exposure to COVID 19 please contact your surgeons office immediately. A REMINDER, YOU SHOULD PRACTICE SOCIAL DISTANCING FOR AT LEAST 7 DAYS PRIOR TO SURGERY. COVID Related Hospital Precautions When you arrive to the hospital the day of your surgery you will enter the [facility]. Masking optional and no longer required. VISITOR GUIDELINES: Visiting hours once you are admitted to the hospital after surgery are from 8AM-8PM. PREOPERATIVE CHLORHEXIDINE (CHG) ? BATHING INSTRUCTIONS Before surgery, you can play an important role in your own health. Because skin is not sterile,we need to be sure that your skin is as free of germs as possible before surgery. You can reduce the number of germs on your skin by carefully washing before surgery. Following these instructions will help you be sure that your skin is clean before surgery IMPORTANT: You will need to shower with a special soap called Chlorohexidine gluconate (CHG) ?. A common brand name for this soap is Hibiclens, but any brand is acceptable to use. The soap will come in a liquid. This may be purchased at any local pharmacy. If you are allergic to Chlorohexidine use Dial antibacterial soap for your shower/bath. Shower or bathe with CHG? the night before and the morning of surgery. Do not shave the area of your body where surgery will be performed. Wash your hair usual with your normal shampoo. Rinse your hair and body thoroughly after you shampoo remove all shampoo residues. Apply the CHG? to the entire body ONLY FROM THE NECK DOWN. Do not use CHG? near your eyes or ears to avoid permanent injury to those areas. Wash thoroughly, paying special attention to the area where surgery will be performed. Turn the water off to prevent rinsing the soap off too soon. Wash your body gently for five (5) minutes. Do not scrub your skin too hard. Do not wash with your regular soap after CHG? is used. Turn the water back on and rinse your body thoroughly. Pat yourself dry with a clean, soft towel. Do not use lotion, cream, or powder. Make sure clean linens are on your bed the night prior to surgery. Wear clean clothes. Repeat this process the morning of surgery using ONLY CHG soap. * Not to be used by people allergic to Chlorhexidine INCENTIVE SPIROMETER The following provides an overview of how you will use the spirometer after your surgery. Our goal is for you to become familiar with usage prior to your surgery date, as this improves the ability touse properly. Please attempt to use 2-3 times daily in the week leading up to your surgery date. DO NOT bring this spirometer with you the day of surgery, as you will be provided a new one after your surgery. Using your incentive spirometer after surgery will help your lungs clear and will help keep your lungs active throughout the recovery process, as if you were performing your daily activities. How to use the incentive spirometer: 1. Sit on the edge of your bed if possible, or sit up as far as you can in bed. 2. Hold the incentive spirometer in an upright position. 3. Place the mouthpiece in your mouth and seal your lips tightly around it. 4. Breathe in slowly and as deeply as possible. Notice the blue piston rising toward the top of thecolumn. The blue indicator on the right should float between the two blue arrows. 5. Hold your breath as long as possible. Then exhale slowly and allow the piston to fall to fall tothe bottom of the column. 6. Rest for a few seconds and repeat steps one to 5 at least 10 times every hour. 7. Position the blue indicator on the left side of the spirometer to show your best effort. Use theindicator as a goal to work toward during each slow deep breath. 8. After each set of 10 deep breaths. Cough to be sure your lungs are clear. If you have an incision, support your incision when coughing by placing a pillow firmly against it. 9. Once you are able to get out of bed safely, take frequent walks and practice the cough. Medication Instructions for Surgery Current Outpatient Medications Medication Sig Note Dispense Refill buPROPion XL 24hr (WELLBUTRIN-XL) 300 MG tablet Take 1 (one) tablet by mouth every morning 12/07/2022: Take Morning of Surgery FLUoxetine (PROZAC) 20 MG capsule Take 3 (three) capsules by mouth once daily 12/07/2022: Take Morning of Surgery phentermine (Ionamine) 30 MG capsule Take 1 (one) capsule by mouth once daily 12/07/2022: LAST DOSE 11/30/2022 If you are taking any NSAIDs (Advil, Ibuprofen, Naproxen, Aleve, Motrin, Meloxicam, etc.), please stop 10 days prior to surgery as these are considered blood thinning medications. documented in this encounter Medications at Time of Discharge Medication Sig Dispensed Refills Start Date End Date buPROPion XL 24hr (WELLBUTRIN-XL) 300 MG tablet Take 1 (one) tablet by mouth every morning 02/26/2020 FLUoxetine (PROZAC) 20 MG capsule Take 3 (three) capsules by mouth once daily 03/05/2020 levonorgestrel (Mirena) 20 MCG/DAY IUD by Intrauterine route as directed acetaminophen (Tylenol) 160 MG/5ML solution Take 31.25 mL by mouth every 8 hours 2022 06/19/2023 magnesium hydroxide (Milk Of Magnesia) 400 MG/5ML suspension Take 15 mL by mouth as needed 2022 12/21/2022 magnesium hydroxide (Milk Of Magnesia) 400 MG/5ML suspension Take 15 mL by mouth as needed for Constipation 2022 12/22/19 23 phentermine (Ionamine) 30 MG capsule Take 1 (one) capsule by mouth once daily 09/30/2022 2022 senna-docusate (Senokot-S) 8.6-50 MG tablet Take 1 (one) tablet by mouth 2 times daily as needed for Constipation 2022 12/22/19 simethicone (Mylicon) 40 MG/0.6ML drops Take 1.2 mL by mouth 4 times daily as needed for Gas Pain 45 mL 2022 12/21/2022 documented as of this encounter Plan of Treatment Not on file documented as of this encounter Procedures Procedure Name Priority Date/Time Associated Diagnosis Comments VITAMIN B1 Routine 12/07/2022 12:58 PM CDT Pre-op evaluation CBC W AUTO DIFFERENTIAL Routine 12/07/2022 12:58 PM CDT Pre-op evaluation COMPREHENSIVE METABOLIC PANEL Routine 12/07/2022 12:58 PM CDT Pre-op evaluation VITAMIN B12 Routine 12/07/2022 12:58 PM CDT Pre-op evaluation EKG 12-LEAD Routine 12/07/2022 12:25 PM CDT Pre-op evaluation documented in this encounter Results * VITAMIN B12 (12/07/2022 12:58 PM CDT) Vitamin B12 541 213 - 816 pg/mL 12/07/2022 1:57 PM CDT [facility] Blood BLOOD SPECIMEN / Unknown Venipuncture / Unknown 12/07/2022 12:58 PM CDT 12/07/2022 1:06 PM CDT Anthony Martell MD LAB - CHEMISTRY [facility]EL[facility] Organization Address City/State/[facility] Co de Phone Number [facility] [address] [place] [address] * VITAMIN B1 (12/07/2022 12:58 PM CDT) Vitamin B1 Whole Blood 119.4 66.5 - 200.0 nmol/L 12/12/2022 6:07 AM CDT [facility] ([facility]) Blood BLOOD SPECIMEN / Unknown Venipuncture / Unknown 12/07/2022 12:58 PM CDT 12/07/2022 1:06 PM CDT Narrative [facility] ([facility]) - 12/12/2022 6:07 AM CDT Test(s) [id number]. B1, Whole Blood was developed and its performance characteristics determined by [facility]. It has not been cleared or approved by the Food and Drug Administration. Performed at: ??01 - [facility] ??[id number] Practicing Md Anesthesiologist: Whitley Ferrer MD, Phone: ??[phone] Anthony Martell MD LAB - CHEMISTRY [facility] ([facility]) [address] [place] [address] * (ABNORMAL) COMPREHENSIVE METABOLIC PANEL (12/07/2022 12:58 PM CDT) Glucose 83 70 - 105 mg/dL 12/07/2022 1:26 PM CDT [facility] Sodium 136 136 - 145 mmol/L 12/07/2022 1:26 PM CDT [facility] Potassium 4.0 3.5 - 5.1 mmol/L 12/07/2022 1:26 PM CDT [facility] Chloride 110(H) 98 - 107 mmol/L 12/07/2022 1:26 PM CDT [facility] CO2 20(L) 23 - 31 mmol/L 12/07/2022 1:26 PM CDT [facility] Calcium 8.5 8.4 - 10.4 mg/dL 12/07/2022 1:26 PM CDT [facility] Anion Gap 6(L) 8 - 18 mmol/L 12/07/2022 1:26 PM CDT [facility] BUN 25(H) 7 - 18.7 mg/dL 12/07/2022 1:26 PM CDT [facility] Creatinine 0.60 0.57 - 1.11 mg/dL 12/07/2022 1:26 PM CDT [facility] Alkaline Phosphatase 70 40 - 150 U/L 12/07/2022 1:26 PM CDT [facility] ALT 12 0 - 61 U/L 12/07/2022 1:26 PM CDT [facility] AST 17 5 - 34 U/L 12/07/2022 1:26 PM CDT [facility] Protein Total 6.3(L) 6.4 - 8.3 gm/dL 12/07/2022 1:26 PM CDT [facility] Albumin 3.8 3.5 - 5.2 gm/dL 12/07/2022 1:26 PM CDT [facility] Bilirubin Total 0.1(L) 0.2 - 1.2 mg/dL 12/07/2022 1:26 PM CDT [facility] eGFR by CKD-EPI >90 >=90 mL/min/1.7 3 m2 12/07/2022 1:26 PM CDT [facility] Blood BLOOD SPECIMEN / Unknown Venipuncture / Unknown 12/07/2022 12:58 PM CDT 12/07/2022 1:06 PM CDT Anthony Martell MD LAB - CHEMISTRY [facility] Organization Address City/State/ZIP Co de Phone Number [facility] [address] [place] [address] * (ABNORMAL) CBC W AUTO DIFFERENTIAL (12/07/2022 12:58 PM CDT) WBC 9.1 4.4 - 10.7 x10E9/L 12/07/2022 1:10 PM CDT [facility] WBC Corrected 12/07/2022 1:10 PM CDT [facility] RBC 3.72(L) 3.80 - 5.20 x10E12/L 12/07/2022 1:10 PM CDT [facility] Hemoglobin 11.7(L) 12.0 - 15.6 gm/dL 12/07/2022 1:10 PM CDT [facility] Hematocrit 34.3(L) 35.9 - 45.5 % 12/07/2022 1:10 PM CDT [facility] MCV 92.2 80.7 - 98.3 fl 12/07/2022 1:10 PM CDT [facility] MCH 31.5 26.7 - 34.0 pg 12/07/2022 1:10 PM CDT [facility] MCHC 34.1 30.8 - 35.9 gm/dL 12/07/2022 1:10 PM CDT [facility] Platelet Count 234 153 - 416 x10E9/L 12/07/2022 1:10 PM CDT [facility] RDW-CV 11.9(L) 12.1 - 14.9 % 12/07/2022 1:10 PM CDT [facility] MPV 10.2 9.4 - 12.9 fl 12/07/2022 1:10 PM CDT [facility] Neutrophils % 58.9 44.0 - 73.0 % 12/07/2022 1:10 PM CDT [facility] Lymphocytes % 29.6 20.0 - 43.0 % 12/07/2022 1:10 PM CDT [facility] Monocytes % 6.3 5.0 - 13.0 % 12/07/2022 1:10 PM CDT [facility] Eosinophils % 4.3 0.0 - 6.0 % 12/07/2022 1:10 PM CDT [facility] Basophils % 0.6 0.0 - 2.0 % 12/07/2022 1:10 PM CDT [facility] Immature Granulocytes 0.3 0 - 1 % 12/07/2022 1:10 PM CDT [facility] Neutrophil Absolute 5.34 2.01 - 7.14 x10E9/L 12/07/2022 1:10 PM CDT [facility] Lymphocytes Absolute 2.68 1.07 - 3.94 x10E9/L 12/07/2022 1:10 PM CDT [facility] Monocytes Absolute 0.57 0.26 - 1.07 x10E9/L 12/07/2022 1:10 PM CDT [facility] Eosinophils Absolute 0.39 0 - 0.47 x10E9/L 12/07/2022 1:10 PM CDT [facility] Basophils Absolute 0.05 0 - 0.08 x10E9/L 12/07/2022 1:10 PM CDT [facility] Immature Granulocytes Absolute 0.03 0.00 - 0.06 x10E9/L 12/07/2022 1:10 PM CDT [facility] nRBC Auto 0 /100 WBC 12/07/2022 1:10 PM CDT [facility] Blood BLOOD SPECIMEN / Unknown Venipuncture / Unknown 12/07/2022 12:58 PM CDT 12/07/2022 1:06 PM CDT Anthony Schwoerer MD LAB - HEMATOLOGY ORD ERABLES [facility] [address] [place] [address] * EKG 12-LEAD (12/07/2022 12:25 PM CDT) Ventricular Rate 75 BPM [facility] Atrial Rate 75 BPM [facility] P-R Interval 150 ms [facility] QRS Duration ms 84 ms [facility] Q-T Interval ms 358 ms [facility] QTC Calculation (Bezet) 399 ms [facility] Calculated P [place] 33 degrees [facility] Calculated R [place] 38 degrees [facility] Calculated T [place] 53 degrees [facility] Interpretation EKG Normal sinus rhythm Normal ECG No previous ECGs available Confirmed by RAKESH FRAZIER MD ([id number]) on 12/08/2022 11:44:01 AM [facility] 12/07/2022 12:2 5 PM CDT 12/08/2022 11:44 AM CDT Anthony Martell MD ECG ORDERABLES Performing Organization Address City/[facility]/ZIP Co de Phone Number [facility] documented in this encounter Visit Diagnoses Diagnosis Pre-op evaluation- Primary Preoperative examination, unspecified documented in this encounter Care Teams Tile Roofer Relationship Specialty Start Date End Date Crystal Cedeno [address] [place] [address] PCP - General Nurse Practitioner 10/24/22 documented as of this encounter
--- OUTSIDE RECORDS SUMMARY | 2024-10-07 02:45 | XMS_ITS | Encounter Summary ---
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 Name Role Phone Crystal Cedeno Primary Care Provider [phone] Reason for Visit * Auth/Cert (Routine) Specialty Diagnoses / Procedures Referred By Contac t Referred To Contact Diagnoses Morbid (severe) obesity due to excess calories (HCC) Hiatal hernia Procedures SD LAP SLEEVE GASTRECTOMY SD LAP PARAESOPHAG AMY REPAIR Referral ID Status Reason Start Date Expiration Date Visits Re quested Visits Authorized [id number] 1 1 Encounter Details Date Type Department Care Team (Late st Contact Info) Description 12/14/2022 10:59 AM CDT - 12/14/2022 12:34 PM CDT Surgery [facility] - Perioperative Surgery [address] [place] [address] [place] [id number] [address] LAPAROSCOPIC SLEEVE GASTRECTOMY Surgery Details Date/Time Status Location OR Service Patient Class Case Class Case Type Trauma Case? 12/14/2022 10:59 AM Posted [facility] MAIN OR OR 06 Bariatric Cloud Solutions Architect Admit Surgical Elective > 5 days Panel 1 Procedure LRB Anes Op Region Wound Class Comments LAPAROSCOPIC SLEEVE GASTRECTOMY N/A General Abdomen Clean Contaminated Surgeon Surgeon Role Service Panel Anthony Martell MD Primary Bariatric 1 documented in this encounter Social History Tobacco [...] heating? Not hard at all 12/14/2022 [facility] - Occupational Stress [...] place to sleep or slept in a longterm (including now)? No 12/14/2022 Sex and Gender [...] Coronavirus/COVID-19? 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 documented as of this encounter Last Filed Vital Signs Vital Sign Reading Time Taken Comments Blood Pressure 141/86 12/14/2022 12:30 PM CDT Pulse 77 12/14/2022 12:30 PM CDT Temperature 36.6 ??C (97.9 ??F) 12/14/2022 1 2:28 PM CDT Respiratory Rate 16 12/14/2022 12:3 0 PM CDT Oxygen Saturation 99% 12/14/2022 12: 30 PM CDT Inhaled Oxygen Concentration - - Weight 154.4 kg (340 lb 6.4 oz) 12/14/2022 9:03 AM CDT Height 165.1 cm (5' 5 ) 12/14/2022 9:03 AM CDT Body Mass Index 56.65 12/14/2022 9:03 AM CDT documented in this encounter Functional [...] No 12/14/2022 documented as of this encounter Discharge Summaries * Leti Hunt APRN-CNP - 2022 4:33 PM CDT Images from the original note were not included. Physician Discharge Summary PCP: Crystal Cedeno, Admit date: 12/14/2022 Discharge date: 2022 Admitting Physician: Anthony Martell MD Attending Physician: Anthony Martell MD Discharge Provider : CARLOS Springer Admission weight: Weight: (!) 154.4 kg (340 lb 6.4 oz) (12/14/22902) Most recent weight: Weight: (!) 154.4 kg (340 lb 6.4 oz) (12/14/22902) 2022 [id number] 1990 Admitting Diagnosis Clinically Severe Obesity with multiple co-morbidities Body mass index is 56.65 kg/m??. Past Medical History: Diagnosis Date ??? BMI 50.0-59.9, adult (CMS/HCC) ??? Depression Post ??? NEGATIVE PAST MEDICAL HISTORY - SEE PROBLEM LIST Discharge Diagnosis: Same Consults : Hospitalist Diagnostic Studies UGI Principal Procedures Performed: Laparoscopic sleeve gastrectomy Hospital Course The patient underwent the procedures noted above on the day of admission. Following surgery, the patient was taken from the operating room to the recovery room, and later to hospital room. Vital signs were carefully monitored. The patient was started on a phase I bariatric diet. The patient underwent an UGI study which demonstrated no evidence of gastric leak or obstruction. Preoperative medication was administered when indicated by either an oral or parenteral route. Additional assessments of the patient's vital signs, laboratory values and level of pain were performed throughout the patient's hospitalization. The patient was also followed by a hospitalist to manage comorbid conditions. Onthe day of discharge, the patient was instructed on diet and medication, as well as on wound care. The patient was given a prescription for pain medication and told to take a PPI daily. Patient was educated and instructions given on vitamin supplement and when to begin. Showers were allowed, but the patient was told not to submerge in water. The patient was instructed on constipation management if needed. Finally, the patient was printed discharge instructions. We are to see the patient in the office in 1 week and this appointment has been arranged. The patient is to call if fever occurred, nausea persisted, emesis occurred or if there was excessive redenss at the wound sites. Patient Instructions Current Discharge Medication List START taking these medications Instructions Authorizing Provider acetaminophen 160 MG/5ML solution Commonly known as: Tylenol Take 31.25 mL by mouth every 8 hours CARLOS Springer * magnesium hydroxide 400 MG/5ML suspension Commonly known as: Milk Of Magnesia Take 15 mL by mouth as needed Leti Hunt APRN-FISHING LURE ASSEMBLER * magnesium hydroxide 400 MG/5ML suspension Commonly known as: Milk Of Magnesia Take 15 mL by mouth as needed for Constipation CARLOS Springer oxyCODONE 5 MG/5ML oral solution Commonly known as: Roxicodone Quantity Dispensed: 120 mL Take 5 mL by mouth every 6 hours as needed for Pain Anthony Martell MD senna-docusate 8.6-50 MG tablet Commonly known as: Senokot-S Take 1 (one) tablet by mouth 2 times daily as needed for Constipation Leit Hunt APRN-MIGUEL simethicone 40 MG/0.6ML drops Commonly known as: Mylicon Quantity Dispensed: 45 mL Take 1.2 mL by mouth 4 times daily as needed for Gas Pain Leti Hunt APRN-FISHING LURE ASSEMBLER * This list has 2 medication(s) that are the same as other medications prescribed for you. Read thedirections carefully, and ask your doctor or other care provider to review them with you. CONTINUE taking these medications which have NOT CHANGED Instructions Authorizing Provider buPROPion XL 24hr 300 MG tablet Commonly known as: Wellbutrin-XL Take 1 (one) tablet by mouth every morning FLUoxetine 20 MG capsule Commonly known as: PROzac Take 3 (three) capsules by mouth once daily levonorgestrel 20 MCG/DAY IUD Commonly known as: Mirena by Intrauterine route as directed STOP taking these medications phentermine 30 MG capsule Commonly known as: Ionamine Discharge Procedure Orders Why you were hospitalized Order Specific Question Answer Comments Your discharge diagnosis is: Bariatric surgery status [V45.86.ICD-9-CM] Activity as tolerated -- Walk at least four times a day. -- If you are driving for longer than an hour, stop and walk for ten minutes every hour during the drive. No heavy lifting Do not lift anything over 15 pounds until cleared by Dr. Martell Shower with incision uncovered -- Remove dressings before showering, then replace dressing afterwards. -- Leave dressings off after 48 hours. No tub baths Until your incision(s) are completely healed. Incentive spirometer Continue to use your incentive spirometer four times a day for two more weeks. Return to work -- You may return to work after you are cleared by Dr. Martell Follow up with Primary Care Provider (PCP) Our records show your Primary Care Provider (PCP) is Crystal Cedeno. Additional Scheduling Instructions: Readmission Risk Score: 4. 0-20 = Low/Moderate Risk - Follow up within 14 days 21-100 = High Risk - Follow up within 5 days Order Specific Question Answer Comments Follow Up Instructions for Clinical Staff: 1-2 weeks Follow up with provider Additional Scheduling Instructions: Readmission Risk Score: 4. 0-20 = Low/Moderate Risk - Follow up within 14 days 21-100 = High Risk - Follow up within 5 days Order Specific Question Answer Comments Follow Up Instructions for Clinical Staff: 1 week Medication instructions Upon discharge from the hospital you may take capsules and regular pills (nothing larger than the size of an aspirin). Bariatric vitamins Patient not to take bariatric multivitamin or calcium supplement until your 1 month follow up Ok to take Prilosec No aspirin or NSAID's Until cleared by Dr. Martell -- Aspirin may be found in other medications, such as Excedrin or Anacin. -- Non-steroidal Anti-inflammatories (NSAID's) are found in many other medications, such as ibuprofen, Motrin, Aleve, or naproxen. -- Please ask if you are unsure about any medications. For relief of pain Take prescribed pain medications for relief of pain or discomfort. Diet instructions No alcoholic drinks Until cleared by Dr. Martell When to call your provider Call Dr. Martell if you have questions or concerns, or for any of the following issues: -- heart rate over 100 -- temperature higher than 101 F -- increased shortness of breath -- pain that gets worse or does not get better after taking your pain medication(s) as directed. Severe abdominal pain is defined as 8-10 on the pain scale. -- nausea or vomiting or cannot eat or drink -- bleeding from your incision or IV site -- if your incision or IV site looks infected (red, swollen, warm to the touch, or non-clear, foul-smelling drainage) documented in this encounter Medications at Time [...] mouth as needed for Constipation 2022 12/22/19 oxyCODONE (Roxicodone) 5 MG/5ML oral solutionIndications:Mo rbid obesity (HCC) Take 5 mL by mouth every 6 hours as needed for Pain 120 mL 2022 06/19/2023 senna-docusate (Senokot-S) 8.6-50 MG tablet Take 1 (one) tablet by mouth 2 times daily as needed for Constipation 2022 12/22/19 simethicone (Mylicon) 40 MG/0.6ML drops Take 1.2 mL by mouth 4 times daily as needed for Gas Pain 45 mL 2022 12/21/2022 documented as of this encounter Progress Notes * Marisol Luna MD - 2022 2:09 PM CDT Admit Date: 12/14/2022 8:47 AM Hospital Day: 1 Reason for visit/follow up: Bariatric surgery New Symptoms Patient has no new symptoms Data Vitals: 12/14/22 1913 12/14/22 2334 12/15/22 0417 12/15/22 0901 BP: 143/72 120/63 141/75 133/76 Pulse: 84 87 94 73 Resp: 18 18 18 18 Temp: 98.3 ??F (36.8 ??C) 98.1 ??F (36.7 ??C) 98.3 ??F (36.8 ??C) 98.2 ??F (36.8 ??C) SpO2: 100% 96% 95% 96% Weight: Height: Intake/Output Summary (Last 24 hours) at 2022 1409 Last data filed at 2022 1000 Gross per 24 hour Intake 480 ml Output 2200 ml Net -1720 ml My review of labs, imaging, notes and other tests is significant for anemia Recent Labs Component Name 12/15/22 0437 12/14/22 0916 12/07/22 1258 11/04/20 0841 SODIUM 138 - 136 140 POTASSIUM 4.0 4.7 4.0 4.1 CHLORIDE 107 - 110* 104 CO2 23 - 20* 23 BUN 8 - 25* 9 CREATININE 0.56* - 0.60 0.67 GLUCOSE 87 - 83 70 CALCIUM 8.7 - 8.5 8.9 Recent Labs Component Name 12/15/22 0437 12/07/22 1258 11/04/20 0842 WBC 10.6 9.1 3.5 HGB 11.6* 11.7* 11.9 HCT 35.2* 34.3* 34.3 PLTCOUNT 267 234 193 MEDICATIONS FOR CURRENT ENCOUNTER: ?? SCHEDULED MEDICATIONS: ?? acetaminophen (Tylenol) solution 1,000 mg, Oral, q8h ?? buPROPion XL 24hr (Wellbutrin-XL) tablet 300 mg, Oral, QAM ?? dextrose 5 % 500 mL with M.V.I. (MVI Adult) 10 mL infusion, Intravenous, QDAY ?? FLUoxetine (PROzac) capsule 60 mg, Oral, QDAY ?? heparin injection 5,000 Units, Subcutaneous, BID ?? hyoscyamine (Levsin SL) sublingual tablet 0.125 mg, Sublingual, q6h ?? iopamidol (Isovue 370) 76 % contrast, Oral, Contrast - Once ?? ketorolac (Toradol) injection 15 mg, Intravenous, q8h ?? magnesium hydroxide (Milk Of Magnesia) suspension 15 mL, Oral, QDAY ?? ondansetron (Zofran) injection 4 mg, Intravenous, q6h ?? pantoprazole (Protonix) injection 40 mg, Intravenous, QDAY ?? CONTINUOUS MEDICATIONS: ?? 0.45% NaCl with potassium chloride 20meq infusion, Intravenous, Continuous Exam General appearance: alert, cooperative, Heart: regular rhythm, normal S1 and S2, without murmurs, Lungs: breath sounds symmetric; no rales or wheezes Abdomen: soft , non-tender, with normal bowel sounds Extremities: no cyanosis, trace edema Assessment and Plan Depression Resumed psychiatric medications as at home ?? Morbid obesity Body mass index is 56.65 kg/m??. Status post sleeve gastrectomy Following post op orders. DVT prophylaxis per surgeon preference Baseline anemia noted Portions of this document have been carried over from prior notes and may contain unintentional discrepancies. Please refer to orders and MAR for the most accurate and up-to-date information. * Terri Bhatti RD/SHARON - 2022 12:49 PM CDT Nutrition: Nutrition consult completed. Bariatric diet education and nutrition guidelines per Weight Management Services discussed. See Education section for details. Diet order accuracy Current diet order: Bariatric Phase 1 Nutrition recommendation: agree with current nutrition order P.O.Intake for the past 48 hrs:% Meal Taken Av % Min: 0 % Max: 0 % Height: 165.1 cm (5' 5 ) Weight: (!) 154.4 kg (340 lb 6.4 oz) Body mass index is 56.65 kg/m??.BMI Range: Morbidly Obese Class 3 Laboratory values reviewed. Medications noted. No acute nutrition issues identified at this time. Recommendations: Continue Phase 1 diet Monitor nutrition per nutrition guidelines. * Bipin Campos, PharmD - 2022 8:22 AM CDT Bariatric Surgery Pharmacy Service Subjective Leti Soto is a 32 year old female Height: 5' 5 (165.1 cm) Weight: (!) 154.4 kg (340 lb 6.4 oz) BMI (Calculated): 56.65 Type of Bariatric Surgery: LRYGB Recommendations Due to size restriction and absorption changes, it is recommend for the first four weeks postop, all medications be changed to liquid when possible, controlled release (CR/ER/XR, etc) products be changed to immediate release, and to crush medications larger than an aspirin or M&M. NSAIDS (otherthan aspirin for cardiac benefit) are not recommended post surgery in bariatric patients. Changes during inpatient admission -Recommend holding all vitamins from home medication list x 1 month. -All other home medications can be safely swallowed whole due to small size, and do not require adjustment for this admission. Education performed -Discussed above recommendations. -Importance of avoiding any medications larger than the size of an aspirin or M&M. -Use of daily bariatric MVI + UpCal calcium packets three times daily. Hold vitamins x 1 month post-op. Separate MVI and calcium by 2 hours. -Use of daily OTC omeprazole. Please add OTC omeprazole 20 mg daily to discharge paperwork. -Prescription pain medication + common side effects. Thank you for including pharmacy in the care of this patient, Bipin Campos PharmD 2022 8:21 AM * Bipin Campos PharmD - 2022 8:21 AM CDT [facility] Pharmacy Services Admission Medication Review Leti Soto is a 32 year old female I have reviewed patient's home medication list with the patient and the electronic medical record. The medication list review was after the physician has seen and acted upon, and is now ready for re-review/order by physician. Medication List Revisions Medications removed: phentermine 30 mg daily Thank you for the opportunity to take part of eLti Soto's care. Bipin Campos PharmD * Marilee Letijose Nation APRN-FISHING LURE ASSEMBLER - 2022 8:07 AM CDT Bariatric Surgery Progress Note Leti Soto Admit Date: 12/14/2022 8:47 AM Hospital Day: 1 Follow Up for Procedure: Laparoscopic sleeve gastrectomy POD#1 Overnight Events: None Subjective: Pain well controlled with medications, no nausea or emesis, ambulated, Tolerating Phase I diet well Denies CP or SOB + flatus, no BM Data Vitals: 12/14/22 1501 12/14/22 1913 12/14/22 2334 12/15/22 0417 BP: 139/79 143/72 120/63 141/75 Pulse: 69 84 87 94 Resp: 17 18 18 18 Temp: 97.8 ??F (36.6 ??C) 98.3 ??F (36.8 ??C) 98.1 ??F (36.7 ??C) 98.3 ??F (36.8 ??C) SpO2: 96% 100% 96% 95% Weight: Height: Intake/Output Summary (Last 24 hours) at 2022 0838 Last data filed at 2022 0647 Gross per 24 hour Intake 2060 ml Output 2200 ml Net -140 ml Current Facility-Administered Medications Medication ??? 0.45% NaCl with potassium chloride 20meq infusion ??? acetaminophen (Tylenol) solution 1,000 mg ??? acetaminophen (Tylenol) solution 500 mg ??? buPROPion XL 24hr (Wellbutrin-XL) tablet 300 mg ??? dextrose 5 % 500 mL with M.V.I. (MVI Adult) 10 mL infusion ??? FLUoxetine (PROzac) capsule 60 mg ??? fluticasone propionate (Flonase) nasal spray 1 spray ??? heparin injection 5,000 Units ??? hyoscyamine (Levsin SL) sublingual tablet 0.125 mg ??? iopamidol (Isovue 370) 76 % contrast ??? ketorolac (Toradol) injection 15 mg ??? magnesium hydroxide (Milk Of Magnesia) suspension 15 mL ??? metoclopramide (Reglan) injection 10 mg ??? nitroGLYCERIN (Nitro-Bid) 2 % ointment 1 inch ??? ondansetron (Zofran) injection 4 mg ??? oxyCODONE (Roxicodone) oral solution 5 mg ??? pantoprazole (Protonix) injection 40 mg ??? scopolamine (Transderm-Scop) 1 patch ??? simethicone (Mylicon) drops 80 mg Recent Labs Component Name 12/15/22 0437 12/14/22 0916 12/07/22 1258 11/04/20 0841 SODIUM 138 - 136 140 POTASSIUM 4.0 4.7 4.0 4.1 CHLORIDE 107 - 110* 104 CO2 23 - 20* 23 BUN 8 - 25* 9 CREATININE 0.56* - 0.60 0.67 GLUCOSE 87 - 83 70 CALCIUM 8.7 - 8.5 8.9 Recent Labs Component Name 12/15/22 0437 12/07/22 1258 11/04/20 0842 WBC 10.6 9.1 3.5 HGB 11.6* 11.7* 11.9 HCT 35.2* 34.3* 34.3 PLTCOUNT 267 234 193 UGI: pending Physical Exam A+O x 3, NAD CTA B/L RRR ABD soft, ND, appropriate TTP, incisions C/D/I Neg BLE edema Assessment/Plan: S/P Laparoscopic sleeve gastrectomy POD #1 Neuro: PO pain control PULM: aggressive IS, ambulation, OOBTC CV: stable GI: Cont Phase I diet, PPI, UGI pending FEN: wean IVF : adequate UOP HEME: stable H/H ID: afebrile, no abx DVT: cont SCD and heparin Dispo: Possible D/C home later today, continue with pain and nausea management, await UGI results, monitor oral intake, discharge instructions reviewed Leti Hunt APRN-FISHING LURE ASSEMBLER * Juliet Holman RN - 2022 7:35 AM CDT Problem: Pain/Discomfort Goal: Patient exhibits reduced pain/discomfort as evidenced by pain scores Outcome: Progressing * Droa Cervantes RN - 12/14/2022 10:54 PM CDT Problem: Pain/Discomfort Goal: Patient exhibits reduced pain/discomfort as evidenced by pain scores Outcome: Progressing Goal: Patient uses pharmacological and non-pharmacological pain management strategies. Outcome: Progressing Goal: Patient verbalizes acceptable level of pain relief and ability to engage in desired activity. Outcome: Progressing * Katerine Lopez RN - 12/14/2022 3:07 PM CDT Case Management Initial Assessment Anticipated Discharge Date: 12/15/22 Transportation at Discharge: Family Anticipated level of care at discharge: Home Anticipated level of care provider: None Prior to admission level of care: Home Prior to admit provider: Christina Discharge Goals and Plans: Patient Goals: Home Plans: No discharge needs identified at this time. Consult Case Management if discharge planning needs arrise. Upon discharge or transfer to a post acute facility should rehospitalization, home health, rehabilitation, or any other follow up care be required, patient's preference is to stay within the [facility] Network and its affiliates.: Unsure Comments: LAPAROSCOPIC SLEEVE GASTRECTOMY Resides spouse. RN and IndependentLEXIS will follow up forpotential needs. Lives with: Spouse Physical Limitations: None Requires Assistance With: None Preferred Pharmacy: [facility] #[id number] - [id number] [facility] [phone] [phone] Advance Directive: No Advance Directive Information Given: Will be offered upon admission READMISSION RISK SCORE is 3 at 3:09 PM 12/14/2022. 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 No Patient/Family provided with list of resources? No Preferred Provider / High Quality Network List given?: No Reason for provider choice: Unknown Equipment at Home: None List DME pt. requires but does not have.: None Manager Money Referral: No Will continue to follow. For any questions or needs please contact: Ctc Operator Name/Phone number: Katerine Lopez RN * Juliet Holman RN - 12/14/2022 1:30 PM CDT Problem: Pain/Discomfort Goal: Patient exhibits reduced pain/discomfort as evidenced by pain scores Outcome: Progressing documented in this encounter H&P Notes * Anthony Martell MD - 12/13/2022 9:53 AM CDT BARIATRIC EVALUATION HISTORY & PHYSICAL Height: 165.1 cm (5' 5 ) Weight: (!) 154.4 kg (340 lb 6.4 oz) BMI (Calculated): 56.65 Chief Complaint: Morbid Obesity HPI: Pt is a 31 year old year old female with a hx of morbid obesity who presents for surgical tx. Pt has attempted multiple weight loss regimens in the past including medical, exercise and dietary without senior care success. Pt has now attained a BMI (Calculated): 56.65 and has failed multiple non surgical weight loss regimens for >5yrs. BMI: Body mass index is 56.65 kg/m??. [place] body weight: 57 kg (125 lb 10.6 oz) Adjusted ideal body weight: 96 kg (211 lb 8.9 oz) Medical: currently on phentermine from pcp - few lb weight loss in last month, nothing significant Has been on qsymia/phentermine, has seen dr prince -wt 222 in 2020 and now 339 -heaviest 480 lbs Review of previous provider notes in [employer] Everywhere was performed on the day of service. Past Medical History: Diagnosis Date ??? BMI 50.0-59.9, adult (CMS/HCC) ??? Depression Post ??? NEGATIVE PAST MEDICAL HISTORY - SEE PROBLEM LIST Past Surgical History: Procedure Laterality Date ??? Cholecystectomy, Laparoscopic 2008 ??? ENDOSCOPY, UPPER N/A 11/17/2022 N/A; ESOPHAGOGASTRODUODENOSCOPY (EGD) DIAGNOSTIC ??? LASIK SURGERY Bilateral 11/2016 ??? [place] Tooth Extraction PATIENT MEDICAL HISTORY SCREENING: Morbid Obesity............................................. Yes Diabetes....................................................... No Hypertension................................................ No Hypercholesterolemia.................................. No Gastroesophageal reflux disease................ No Sleep apnea................................................. No -snoring No -fatigued during day No -falls asleep during normal daily activities No -stops breathing at night No COPD/Emphysema ..................................... No Asthma......................................................... No Dyspnea on exertion..................................... No Thyroid problems.......................................... No Renal Disease.............................................. No Chest pain.................................................... No Heart trouble................................................ No Stress incontinence...................................... No Multiple arthropathies................................... No Depression................................................... Yes - treated by pcp, post Blood clots................................................... No Anesthetic Complications............................. No Positive history of MRSA.............................. No Immune suppression medication.................. No Including, but not limited to prednisone, humira, methotrexate, plaquenil, imuran, pemberton, enbrel Significant Allergies...................................... Yes -tramadol and pcn Other................................................. none FAMILY HISTORY SCREENING: Significant for obesity....................... Yes - both sides Blood clots........................................ No Anesthetic Complications................. No Other................................................. none Current Facility-Administered Medications Medication ??? acetaminophen (Tylenol) tablet 1,000 mg ??? ceFAZolin (Ancef) 3,000 mg in 115 mL IVPB ??? celecoxib (CeleBREX) capsule 400 mg ??? famotidine (Pepcid) injection 20 mg ??? heparin injection 5,000 Units ??? lactated ringers infusion ??? lactated ringers infusion ??? lidocaine PF (Xylocaine MPF) 1 % injection 0.5 mL ??? scopolamine (Transderm-Scop) 1 patch And ??? scopolamine patch placement confirmation Allergies Allergen Reactions ??? Tramadol Other Shaky, increased heart rate, sweating. ??? Penicillins Rash Social History Smoking status: Never Smokeless tobacco: Never Alcohol use: No Drug use: No Sexual activity: Yes Partners with: Male Family History Problem Relation Name Age of Onset ??? Depression Mother ??? Anxiety Disorder Mother ??? Hypertension Father ??? Diabetes Father ??? Heart Disease Father no [place] ??? Depression Maternal Grandmother ??? Anxiety Disorder Maternal Grandmother agoraphobia ??? Diabetes Maternal Grandfather ??? Heart Disease Maternal Grandfather ??? Cancer - Breast Paternal Grandmother ??? Cancer - Breast Other 2 maternal great aunts All past medical, family, and social history was reviewed and updated today. Review of Systems: Constitutional: denies recent significant weight loss HEENT: Denies headaches, vision or auditory changes Cardiovascular: Denies chest pain, orthopnea or palpitations Respiratory: Denies cough, hemoptysis. Oxygen dependent : No Gastrointestinal: denies abdominal pain, no melena or hematemesis Genitourinary: denies hematuria, dysuria Musculoskeletal: denies muscle weakness, denies joint pains Endocrine: denies diabetes mellitus, denies thyroid issues Allergic / Immuno: Normal Neuro / Psych: hx of post depression, denies SI/SA Skin: denies open wounds, skin infections Functional Health Status prior to surgery : Independent- The patient does not require assistance from another person for any ADLs.. Physical Examination: Ht 1.651 m (5' 5 ) Wt (!) 154.4 kg (340 lb 6.4 oz) Constitutional: well-developed, well-nourished, and in no distress. Head: Normocephalic and atraumatic. Eyes: EOM are normal. No scleral icterus. Neck: No tracheal deviation present. Pulmonary/Chest: Effort normal. No stridor. No respiratory distress. Abdominal: Soft, nontender, nondistended, no palp hernias Musculoskeletal: Normal range of motion. Exhibits no tenderness. Neurological: Alert and oriented. Gross motor nerves intact. Skin: Skin is warm. No erythema. Psychiatric: Mood and affect normal. Recent Labs Component Name 12/07/22 1258 11/04/20 0841 04/08/20 1317 SODIUM 136 140 140 POTASSIUM 4.0 4.1 4.1 CHLORIDE 110* 104 103 CO2 20* 23 25 BUN 25* 9 9 CREATININE 0.60 0.67 0.65 GLUCOSE 83 70 95 CALCIUM 8.5 8.9 9.0 Recent Labs Component Name 12/07/22 1258 11/04/20 0842 04/08/20 1317 WBC 9.1 3.5 6.0 HGB 11.7* 11.9 12.1 HCT 34.3* 34.3 36.0 PLTCOUNT 234 193 207 Risk / Benefits: Risks and benefits were reviewed with patient including but not limited to , blood clots of the extremities or the lungs, enteral leaks, hemorrhage, damage to organs, infections, non guaranteed weight loss results among others. There are also risks of vitamin deficiencies that can generate vitamin deficiency symptoms. There are also risks of additional procedures or operations in the perioperative and long goods drier periods. Questions were answered. Covid Discussion: Because the nature of the virus is not yet completely understood, the risks associated with COVID-19 infections have not been fully identified and there may be additional risks which are not known atthis time. In addition, the impact of COVID-19 infections on the known risks associated with the michael atment/procedure/surgery have not been identified and there may be additional or increased risks associated with the treatment/procedure/surgery that are not known at this time. Risks of surgery during COVID19 pandemic was discussed. Discussed that testing would be done prior to operation. Questions were answered. Bariatric Surgery Patient Education: The patient was informed of other factors that are necessary to achieve weight loss in addition to surgery. Specifically, the patient was informed of the different surgical procedures, including the duodenal switch, the jose manuel y gastric bypass, the sleeve gastrectomy and the adjustable gastric band. It was explained that bariatric surgery is part of the overall weight loss program which includes a low calorie nutritional program with nutritional and vitamin supplementation, a frequent and consistent exercise program and a social support program or network. The patient will experience successfuland long goods drier weight loss when these components along with bariatric surgery are followed. The patient has had the above discussions with multiple program team members including surgeon, train gate attendant, bariatric nurse and mental health battery charger tester and the patient will continue to have these discussions through the perioperative program. The MBSAQIP Bariatric Surgical Risk/Benefit Calculator has been used and results have been reviewedwith the patient. Impression: Morbid obesity with above listed comorbidities. Multiple failed diet attempts. Plan: Based on discussion with the patient and consideration of the patients medical history and diagnosis of morbid obesity the patient is an appropriate candidate for bariatric surgery. Recommendation isfor: Laparoscopic Sleeve Gastrectomy and Laparoscopic Hiatal Hernia Repair Pre-op Plan: Liquid Protein Diet: Yes for 2 Weeks Lead Systems Architect: Yes Additional Testing: Yes GI: -EGD: Schwoerer - 2 cm HH, Hill 3 defect, gastritis, H pylori NEG -UGI: small sliding hiatal hernia, mild rerflux CV: hx of metabolic syndrome -pcp clearance for surgery-rec 11/04/22 Pulmonary: none Renal: none Endocrine: no diabetes Heme: no family hx of DVT / PE, no personal hx of DVT/PE, routine VTE risk -Standard post operative anticoagulation Other: none Psych/Social: -Pt has no history of drug use, alcohol use for greater than one year or treatment for alcohol or drug use for greater than one year -Pt has not smoked for at least 6 weeks Preoperative Labs: CBC, CMP, B1, B12 Preoperative weight loss: Yes -decrease from baseline as class, initial 339, DOS 340 Weight check at Class: Yes Comments: Hospitalist Consult: Yes Other Consults: No Schedule: any, poss robot Standard incision, 2S, no tovar, 2 day stay Patient was seen today day of procedure Patient reports no new medical symptoms or changes since last seen in the office Planned procedure was discussed with patient and questions answered Patient voiced understanding of risks and benefits and is agreeable to proceed Anthony Martell MD 12/14/2022 documented in this encounter Consult Notes * Marisol Luna MD - 12/14/2022 2:07 PM CDTAssociated Order(s): IP CONSULT TO HOSPITALIST Initial Hospitalist Consult Note Date of Consult: 12/14/2022 Patient's Primary Care Physician: Crystal Cedeno Physician Requesting Consult: Anthony Martell MD Reason for Consultation: Evaluation of patient's medical problems, Name: Leti Soto Age: [age] year old Race: Sex: female Chief Complaint/History of Present Illness Patient is , a 31 year old female, who is being admitted to the surgical unit after a successful sleeve gastrectomy Seen in recovery room. Patient is awake and alert. No complains of nausea or vomiting, chest pain or shortness of breath. No recent fevers or chills. No headache or blurred vision. No weight gain or loss. No falls, seizures or loss of consciousness . No cough with expectoration. No diplopia, tinnitus. Not in significant abdominal pain. Past Medical History: Diagnosis Date ??? BMI 50.0-59.9, adult (CMS/HCC) ??? Depression Post ??? NEGATIVE PAST MEDICAL HISTORY - SEE PROBLEM LIST Past Surgical History: Procedure Laterality Date ??? Cholecystectomy, Laparoscopic 2008 ??? ENDOSCOPY, UPPER N/A 11/17/2022 N/A; ESOPHAGOGASTRODUODENOSCOPY (EGD) DIAGNOSTIC ??? GASTRIC RESTRICT. PROC. W PART. GASTRECTOMY 12/14/2022 LAPAROSCOPIC SLEEVE GASTRECTOMY ??? LASIK SURGERY Bilateral 11/2016 ??? [place] Tooth Extraction Family History Problem Relation Name Age of Onset ??? Depression Mother ??? Anxiety Disorder Mother ??? Hypertension Father ??? Diabetes Father ??? Heart Disease Father no [place] ??? Depression Maternal Grandmother ??? Anxiety Disorder Maternal Grandmother agoraphobia ??? Diabetes Maternal Grandfather ??? Heart Disease Maternal Grandfather ??? Cancer - Breast Paternal Grandmother ??? Cancer - Breast Other 2 maternal great aunts Social History Occupational History ??? 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 Smoking status: Never ??? Smokeless tobacco: Never Vaping Use ??? Vaping Use: Never used Substance and Sexual Activity ??? Alcohol use: No Alcohol/week: 0.0 standard drinks ??? Drug use: No ??? Sexual activity: Yes Partners: Male Medications Prior to Admission Medication Sig Dispense Refill ??? buPROPion XL 24hr (WELLBUTRIN-XL) 300 MG tablet Take 1 (one) tablet by mouth every morning ??? FLUoxetine (PROZAC) 20 MG capsule Take 3 (three) capsules by mouth once daily ??? levonorgestrel (Mirena) 20 MCG/DAY IUD by Intrauterine route as directed ??? phentermine (Ionamine) 30 MG capsule Take 1 (one) capsule by mouth once daily (Patient not taking: Reported on 12/14/2022) Allergies Allergen Reactions ??? Tramadol Other Shaky, increased heart rate, sweating. ??? Penicillins Rash Review of Systems A 14 point review of systems was negative except as described in HPI. Exam Vitals: 12/14/22 1300 12/14/22 1301 12/14/22 1315 12/14/22 1330 BP: 130/76 130/76 130/72 141/82 Pulse: 66 74 70 69 Resp: 17 16 19 19 Temp: SpO2: 100% 100% 100% 100% Weight: Height: General appearance: awake, cooperative, Eyes: conjugate gaze, no redness ENT: overall appearance of nose and ears without deformity or lesions Neck supple Heart: regular rhythm, normal S1 and S2, without murmurs, Lungs: breath sounds shallow and symmetric; no wheezes Abdomen: soft, with normal bowel sounds Extremities: no cyanosis or edema SAWDUST DRIER. Grossly non-focal Psychiatric: Does not appear anxious Skin: no rashes Data I have reviewed the patient's labs and the review is significant for: Recent Labs Component Name 12/07/22 1258 11/04/20 0842 04/08/20 1317 WBC 9.1 3.5 6.0 HGB 11.7* 11.9 12.1 HCT 34.3* 34.3 36.0 PLTCOUNT 234 193 207 Recent Labs Component Name 12/14/22 0916 12/07/22 1258 11/04/20 0841 04/08/20 1317 SODIUM - 136 140 140 POTASSIUM 4.7 4.0 4.1 4.1 CHLORIDE - 110* 104 103 CO2 - * 23 25 BUN - 25* 9 9 CREATININE - 0.60 0.67 0.65 GLUCOSE - 83 70 95 CALCIUM - 8.5 8.9 9.0 Assessment and Plan Records available in chart ( paper and electronic) were reviewed. Home medications were reviewed Depression Resume psychiatric medications as at home Morbid obesity Body mass index is 56.65 kg/m??. Status post sleeve gastrectomy Follow post op orders. DVT prophylaxis per surgeon preference CC: Anthony Bal MD documented in this encounter OR Notes * Operative - Anthony Martell MD - 12/14/2022 11:25 AM CDT [facility] Operative Report OPERATIVE REPORT PATIENT:Leti Soto MR#: [id number] ADMIT DATE: 12/14/2022 8:47 AM DATE OF SURGERY: 12/14/2022 : 1990 PHYSICIAN: Anthony Martell MD 31 yrs Body mass index is 56.65 kg/m??. PREOPERATIVE DIAGNOSES: Morbid Obesity, Body mass index is 56.65 kg/m??. Past Medical History: Diagnosis Date ??? BMI 50.0-59.9, adult (CMS/HCC) ??? Depression Post ??? NEGATIVE PAST MEDICAL HISTORY - SEE PROBLEM LIST POSTOPERATIVE DIAGNOSES: SAME PROCEDURES PERFORMED: 1. Laparoscopic sleeve gastrectomy SURGEON: Anthony Martell MD Activated Sludge Attendant: Sachi AJ ANESTHESIA: General endotracheal. PROCEDURE: The patient was brought to the operating suite. Pt was placed under general endotrachealanesthesia. Pt was prepped and draped in the usual sterile fashion. A 5 mm periumbilical incision was made. A 5 mm optical port was placed into the peritoneal cavity under direct vision. The peritoneal cavity was insufflated with CO2 gas to 15 mmHg pressure. A 45-degree angled laparoscope was placed in the peritoneal cavity. There was no blood, fluid, or evidence of intraabdominal injury. Separate 5 mm ports were placed in the bilateral upper quadrants. A 12 mm port was placed in the right midadbomen near the umbilicus. An abdominal wall block with liposomal stabilized bupivicaine injectable s uspension was placed in the preperitoneal space spanning the abdomen beginning in the right lateralabdomen and ending in the left abdomen. The patient was placed in steep reverse Trendelenburg position. The left lobe of the liver was elevated using a sarthak liver retractor that was placed through the abdominal wall through a subxiphoid incision. The angle of His was dissected bluntly. Further dissection was carried out at the area of the GE junction and part of the fat pad was taken down. At this point, the short gastric vessels were taken down in their entirety along the greater curvature going up all the way up to the angle of His taking care not to injure the spleen, and then distally to approximately 4-5 cm from the pylorus. The 36 Fr gastric calibration tube was then passed through the oropharynx down the esophagus into the stomach. A laparoscopic MARGARITA stapler was used to begin the gastrectomy near the pylorus. Sequential firings of the stapler, using blue, then white 60 mm loads, followed for the creation of the sleeve gastrectomy. Multiple staple firings ensued with the endoscopic stapler using the gastric calibration tubing as a template for the sleeve. Care was taken at the level of the incisura to avoid narrowing it. The last staple firing was directed at the angle of His thereby excluding the fundus. At this point, the greater part of the stomach had been completely dissected free and was removed from the abdomen via the 12mm stapler. This left about 4 cm distance from the pylorus to the beginning of the antral staple line. Air insufflation using the gastric calibration tube was used to test the staple line by submersing it under saline. There was no evidence of air bubbles and no evidence of a staple line leak. 3-0 vicryl suture was used to oversew the entire staple line for additional reinforcement. Full thickness tissue bites of anterior and posterior stomach were taken and performed in a running fashion. The topportion of the staple line was tacked to the diaphragm to help position the sleeve. There was no evidence of bleeding at the gastric staple line. The liver retractor was removed. The fascia of the 12mm trocar site was closed with an 0 Vicryl suture in a transfascial fashion. The remaining trocars were removed under direct visualization with no evidence of any bleeding and thepneumoperitoneum was evacuated. Skin incisions were closed with a running 4-0 vicryl suture. All sponge, needle, and instrument counts were correct at the end of the case. The patient tolerated the procedure well and was taken to recovery in stable condition. EBL: <15ml SPECIMEN: partial stomach discarded FINDINGS: No evidence of air bubbles on insufflation test. 36 Fr gastric calibration tube used for sizing gastric sleeve diameter COMPLICATIONS: None. Anthony Martell MD documented in this encounter Plan of Treatment Not on file documented as of this encounter Procedures Procedure Name Priority Date/Time Associated Diagnosis Comments FL UGI SERIES Routine 2022 9:51 AM CDT Morbid obesity due to excess calories (HCC) VITAMIN D 25-HYDROXY AM Draw 2022 4:37 AM CDT CBC W AUTO DIFFERENTIAL AM Draw 2022 4:37 AM CDT BASIC METABOLIC PANEL (CALCIUM TOTAL) AM Draw 2022 4:37 AM CDT GLUCOSE - POINT OF CARE Routine 12/14/2022 11:02 PM CDT SD LAP SLEEVE GASTRECTOMY 12/14/2022 10:53 AM CDT Morbid obesity with comorbidities GLUCOSE - POINT OF CARE Routine 12/14/2022 9:21 AM CDT POTASSIUM BLOOD STAT 12/14/2022 9:16 AM CDT Pre-op evaluation HCG URINE QUALITATIVE STAT 12/14/2022 9:15 AM CDT Pre-op evaluation documented in this encounter Results * FL UGI SERIES WO KUB (2022 9:51 AM CDT) Anatomical Region Laterality Modality Abdomen Radiographic Laure [...] W AUTO DIFFERENTIAL (2022 4:37 AM CDT) WBC 10.6 4.4 - 10.7 x10E9/L 2022 [...] - 14.9 % 2022 5:33 AM CDT [facility] MPV 10.3 9.4 - 12.9 fl 2022 5:33 AM CDT [facility] Neutrophils % 68.4 44.0 - 73.0 % 2022 5:33 AM CDT [facility] Lymphocytes % 22.7 20.0 - 43.0 % 2022 5:33 AM CDT [facility] Monocytes % 7.8 5.0 - 13.0 % 2022 5:33 AM CDT [facility] Eosinophils % 0.3 0.0 - 6.0 % 2022 5:33 AM CDT [facility] Basophils % 0.5 0.0 - 2.0 % 2022 5:33 AM CDT [facility] Immature Granulocytes 0.3 0 - 1 % 2022 5:33 AM CDT [facility] Neutrophil Absolute 7.28(H) 2.01 - 7.14 x10E9/L 2022 5:33 AM CDT [facility] Lymphocytes Absolute 2.42 1.07 - 3.94 x10E9/L 2022 5:33 AM CDT [facility] Monocytes Absolute 0.83 0.26 - 1.07 x10E9/L 2022 5:33 AM CDT [facility] Eosinophils Absolute 0.03 0 - 0.47 x10E9/L 2022 5:33 AM CDT [facility] Basophils Absolute 0.05 0 - 0.08 x10E9/L 2022 5:33 AM CDT [facility] Immature Granulocytes Absolute 0.03 0.00 - 0.06 x10E9/L 2022 5:33 AM CDT [facility] nRBC Auto 0 /100 WBC 2022 5:33 AM CDT [facility] Blood BLOOD SPECIMEN / Unknown Venipuncture / Unknown 2022 4:37 AM CDT 2022 5:16 AM CDT Anthony Martell MD LAB - HEMATOLOGY ORD ERABLES [facility] [address] [place] [address] * (ABNORMAL) BASIC METABOLIC PANEL (CALCIUM TOTAL) (2022 4:37 AM CDT) Glucose 87 70 - 105 mg/dL 2022 5:44 AM CDT [facility] Sodium 138 136 - 145 mmol/L 2022 5:44 AM CDT [facility] Potassium 4.0 3.5 - 5.1 mmol/L 2022 5:44 AM CDT [facility] Chloride 107 98 - 107 mmol/L 2022 5:44 AM CDT [facility] CO2 23 23 - 31 mmol/L 2022 5:44 AM CDT [facility] Calcium 8.7 8.4 - 10.4 mg/dL 2022 5:44 AM CDT [facility] Anion Gap 8 8 - 18 mmol/L 2022 5:44 AM CDT [facility] BUN 8 7 - 18.7 mg/dL 2022 5:44 AM CDT [facility] Creatinine 0.56(L) 0.57 - 1.11 mg/dL 2022 5:44 AM CDT [facility] eGFR by CKD-EPI >90 >=90 mL/min/1.7 3 m2 2022 5:44 AM CDT [facility] Blood BLOOD SPECIMEN / Unknown Venipuncture / Unknown 2022 4:37 AM CDT 2022 5:16 AM CDT Anthony Martell MD LAB - CHEMISTRY ESPERANZA VELASCO Performing Organization Address [facility] de Phone Number [facility] [address] [place] [address] * (ABNORMAL) VITAMIN D 25-HYDROXY (2022 4:37 AM CDT) Vitamin D, 25 Hydroxy 29.6(L) 30 - 100 ng/mL 2022 5:58 AM CDT [facility] Blood BLOOD SPECIMEN / Unknown Venipuncture / Unknown 2022 4:37 AM CDT 2022 5:16 AM CDT Narrative [facility] - 2022 5:58 AM CDT Vitamin D Status: ?Deficiency ? <20 ? ng/mL ?Insufficiency ?? 20-30 ??ng/mL ?Sufficiency ? 30-100 ng/mL ?Toxicity ? >100 ?ng/mL Anthony Martell MD LAB - CHEMISTRY ESPERANZA VELASCO Performing Organization Address [facility] Co de Phone Number [facility] [address] [place] [address] * (ABNORMAL) GLUCOSE - POINT OF CARE (12/14/2022 11:02 PM CDT) Glucose WB/POC 122(H) 70 - 106 mg/dL 2022 12:31 AM CDT [facility] Specimen Type Cap Fingerstick 2022 12:31 AM CDT [facility] Blood BLOOD SPECIMEN / Unknown 12/14/2022 11:02 PM CDT 2022 12:31 AM CDT Anthony Martell MD LAB - POINT OF CARE ORDERABLES Performing Organization Address [facility] Co de Phone Number [facility] [address] [place] [address] * (ABNORMAL) GLUCOSE - POINT OF CARE (12/14/2022 9:21 AM CDT) Glucose WB/POC 68(L) 70 - 106 mg/dL 12/14/2022 10:10 AM CDT [facility] Specimen Type Venous 12/14/2022 10:10 AM CDT [facility] Blood BLOOD SPECIMEN / Unknown 12/14/2022 9:21 AM CDT 12/14/2022 10:10 AM CDT Anthony Martell MD LAB - POINT OF CARE ORDERABLES Performing Organization Address [facility] Co de Phone Number [facility] [address] [place] [address] * POTASSIUM BLOOD (12/14/2022 9:16 AM CDT) Potassium 4.7 3.5 - 5.1 mmol/L 12/14/2022 9:46 AM CDT [facility] Blood BLOOD SPECIMEN / Unknown Venipuncture / Unknown 12/14/2022 9:16 AM CDT 12/14/2022 9:34 AM CDT Orly Hobbs DO LAB - CHEMISTRY ESPERANZA VELASCO [facility] [address] [place] [address] * HCG URINE QUALITATIVE (12/14/2022 9:15 AM CDT) hCG Qualitative Urine Negative Negative 12/14/2022 9:39 AM CDT [facility] Urine URINE / Unknown Collection / Unknown 12/14/2022 9:15 AM CDT 12/14/2022 9:35 AM CDT Orly Hobbs DO LAB - URINALYSIS ORD ERABLES [facility] [address] [place] [address] documented in this encounter Visit Diagnoses Not on filedocumented in this encounter Administered Medications Inactive Administered Medications - up to 3 most recent administrations Medication Order MAR Action Action Date Dose Rate Site 0.45% NaCl with potassium chloride 20meq infusion at 75 mL/hr, Intravenous, CONTINUOUS, Starting on Mon12/14/22 at 1330, Until Mon12/15/22 at 1733, Do not infuse at same time as other fluids., Post-op Rate Change 2022 8:01 AM CDT 75 mL/hr $ New Bag/Syringe 2022 6:44 AM CDT 150 mL /hr $ New Bag/Syringe 2022 12:58 AM CDT 150 m L/hr 0.9% NaCl injection PRN, Starting on Mon12/14/22 at 1131, Until Mon12/14/22 at 1231, Intra-op $ Given 12/14/2022 12:10 PM CDT 40 mL Operative Site 0.9% nacl irrigation solution CONTINUOUS PRN, Starting on Mon12/14/22 at 1125, Until Mon12/14/22 at 1125, Intra-op $ New Bag/Syringe 12/14/2022 11:25 AM CDT 3,000 mL Operative Site acetaminophen (Tylenol) solution 1,000 mg 1,000 mg, Oral, EVERY 8 HOURS, First dose on Mon12/14/22 at 1400, Until Discontinued, Patient preference for lesser PRN pain meds may be honored when the patient requests a less strong medication, a lower dose, or a less intrusive route of administration when the lesser drug, dose and route have been ordered for the patient. This patient request must be documented in the MAR., Post-op $ Given 12/14/2022 2:37 PM CDT 1,000 mg bupivacaine liposome (Exparel) 1.3 % injection PRN, Starting on Mon12/14/22 at 1131, Until Mon12/14/22 at 1231, Intra-op $ Given 12/14/2022 12:10 PM CDT 20 mL Operative Site buPROPion XL 24hr (Wellbutrin-XL) tablet 300 mg 300 mg, Oral, EVERY MORNING, First dose on Mon12/15/22 at 0700, Until Discontinued, Do not crush, chew, or cut in half. $ Given 2022 6:45 AM CDT 300 mg dextrose 5 % 500 mL with M.V.I. (MVI Adult) 10 mL infusion 125 mL/hr, Intravenous, DAILY, First dose (after last modification) on Mon12/14/22 at 2100, Until Discontinued, To be run over 4 hours. Do not infuse at same time as other IV fluids. , Post-op $ New Bag/Syringe 2022 8:03 AM CDT 125 mL/hr 125 mL/hr $ New Bag/Syringe 12/14/2022 8:46 PM CDT 125 mL/hr 125 mL /hr FLUoxetine (PROzac) capsule 60 mg 60 mg, Oral, DAILY, First dose on Mon12/15/22 at 0900, Until Discontinued $ Given 2022 7:58 AM CDT 60 mg heparin injection 5,000 Units 5,000 Units, Subcutaneous, 2 TIMES DAILY, First dose on Mon12/14/22 at 2100, Until Discontinued, Post-op $ Given 2022 7:59 AM CDT 5,000 Units Abdominal Tissue $ Given 12/14/2022 9:01 PM CDT 5,000 Units A bdominal Tissue hyoscyamine (Levsin SL) sublingual tablet 0.125 mg 0.125 mg, Sublingual, EVERY 6 HOURS, First dose on Mon12/14/22 at 1330, Until Discontinued, Post-op $ Given 2022 10:45 AM CDT 0.125 mg $ Given 2022 6:45 AM CDT 0.125 mg $ Given 12/14/2022 11:47 PM CDT 0.125 mg iopamidol (Isovue 370) 76 % contrast Oral, CONTRAST ONCE, Starting on Mon12/15/22 at 0617, Until Mon12/15/22 at 1733 $ Given - Contrast 2022 9:52 AM CDT 37.5 mL Mouth ketorolac (Toradol) injection 15 mg 15 mg, Intravenous, EVERY 8 HOURS, 6 doses, First dose on Mon12/14/22 at 1715, Last dose on Mon12/16/22 at 0600, Given 8 hours from preop celebrex Do not give if GFR <60 Dose not to exceed 60mg daily, Post-op $ Given 2022 1:22 PM CDT 15 mg $ Given 2022 6:43 AM CDT 15 mg $ Given 12/14/2022 9:02 PM CDT 15 mg magnesium hydroxide (Milk Of Magnesia) suspension 15 mL 15 mL, Oral, DAILY, First dose on Mon12/15/22 at 0900, Until Discontinued, Shake well before using. $ Given 2022 7:58 AM CDT 15 mL ondansetron (Zofran) injection 4 mg 4 mg, Intravenous, EVERY 6 HOURS, First dose on Mon12/14/22 at 1330, Until Discontinued, Administer over 2 to 5 minutes., Post-op $ Given 2022 10:45 AM CDT 4 mg $ Given 2022 6:43 AM CDT 4 mg $ Given 12/14/2022 11:47 PM CDT 4 mg oxyCODONE (Roxicodone) oral solution 5 mg 5 mg, Oral, EVERY 6 HOURS PRN, Severe Pain, Starting on Mon12/14/22 at 1327, Until Mon12/15/22 at 1733, Patient preference for lesser PRN pain meds may be honored when the patient requests a less strong medication, a lower dose, or a less intrusive route of administration when the lesser drug, dose and route have been ordered for the patient. This patient request must be documented in the MAR., Allow a repeat dose for severe pain? No, Post-op $ Given 2022 10:46 AM CDT 5 mg $ Given 12/14/2022 8:52 PM CDT 5 mg $ Given 12/14/2022 2:37 PM CDT 5 mg pantoprazole (Protonix) injection 40 mg 40 mg, Intravenous, DAILY, 365 doses, First dose on Mon12/14/22 at 1330, Last dose on Mon12/13/23 at 0900, For every 40 mg of pantoprazole mix with 10 mL Normal Saline (final concentration = 4 mg/mL). Inject SLOWLY over 2 min., Post-op $ Given 2022 7:59 AM CDT 40 mg $ Given 12/14/2022 2:36 PM CDT 40 mg simethicone (Mylicon) drops 80 mg 80 mg, Oral, 4 TIMES DAILY PRN, Gas Pain, Starting on Rebecca 12/15/22 at 0745, Until Rebecca 12/15/22 at 1733, Shake well before using. documented in this encounter Active and Recently Administered Medications Times are shown in CDT. Scheduled Medication Order 12/13/2022 12/14/2022 2022 acetaminophen (Tylenol) solution 1,000 mg 1,000 mg, Oral, EVERY 8 HOURS, First dose on Mon12/14/22 at 1400, Until Discontinued, Patient preference for lesser PRN pain meds may be honored when the patient requests a less strong medication, a lower dose, or a less intrusive route of administration when the lesser drug, dose and route have been ordered for the patient. This patient request must be documented in the MAR., Post-op 1437 ($ Given - Provider: Juliet Holman RN)2102 (Not Administered - Provider: Dora Cervantes RN - Reason: Refused-Parent/Guardian) 0644 (Not Administered - Provider: Dora Cervantes RN - Reason: Refused-Parent/Guardian) 1228 (Not Administered - Provider: Juliet Holman RN - Reason: Refused-Patient) acetaminophen (Tylenol) tablet 1,000 mg (COMPLETED) 1,000 mg, Oral, ONCE, 1 dose, On Mon12/14/22 at 0915, Patient preference for lesser PRN pain meds may be honored when the patient requests a less strong medication, a lower dose, or a less intrusive route of administration when the lesser drug, dose and route have been ordered for the patient. This patient request must be documented in the MAR., Pre-op 913 ($ Given - Provider: Velia Edmond RN) buPROPion XL 24hr (Wellbutrin-XL) tablet 300 mg 300 mg, Oral, EVERY MORNING, First dose on Rebecca 12/15/22 at 0700, Until Discontinued, Do not crush, chew, or cut in half. 0645 ($ Given - Provider: Dora Cervantes RN) ceFAZolin (Ancef) 3,000 mg in 115 mL IVPB (COMPLETED) 3,000 mg (3 g), at 230 mL/hr, Intravenous, PRE-OP ONCE, 1 dose, On Mon12/14/22 at 0915, Administer 30 minutes prior to surgical incision. Refrigerate, Indication for anti-infective therapy: Surgical prophylaxis, Pre-op 105 ($ Given - Provider: Ana Culver, DISPATCHER MOTOR VEHICLE-DIESEL SCOOP OPERATOR) celecoxib (CeleBREX) capsule 400 mg (COMPLETED) 400 mg, Oral, PRE-OP ONCE, 1 dose, On Mon12/14/22 at 0915, Patient preference for lesser PRN pain meds may be honored when the patient requests a less strong medication, a lower dose, or a less intrusive route of administration when the lesser drug, dose and route have been ordered for the patient. This patient request must be documented in the MAR., Pre-op 913 ($ Given - Provider: Velia Edmond RN) dextrose 5 % 500 mL with M.V.I. (MVI Adult) 10 mL infusion 125 mL/hr, Intravenous, DAILY, First dose (after last modification) on Mon12/14/22 at 2100, Until Discontinued, To be run over 4 hours. Do not infuse at same time as other IV fluids. , Post-op 2045 ($ New Bag/Syringe - Provider: Dora Cervantes RN) 08 ($ New Bag/Syringe - Provider: Roberta Wiggins) famotidine (Pepcid) injection 20 mg (COMPLETED) 20 mg, Intravenous, PRE-OP ONCE, 1 dose, On Mon12/14/22 at 0915, Give morning of surgery. Dilute with 0.9% NaCl, D5W solution, or SWI to a volume of 5 to 10 mL and administer over at least 2 minutes., Pre-op 0914 ($ Given - Provider: Velia Edmond RN) FLUoxetine (PROzac) capsule 60 mg 60 mg, Oral, DAILY, First dose on Mon12/15/22 at 0900, Until Discontinued 0758 ($ Given - Provider: Roberta Wiggins) heparin injection 5,000 Units (COMPLETED) 5,000 Units, Subcutaneous, PRE-OP ONCE, 1 dose, On Mon12/14/22 at 0915, Pre-op 09 ($ Given - Provider: Velia Edmond RN) heparin injection 5,000 Units 5,000 Units, Subcutaneous, 2 TIMES DAILY, First dose on Mon12/14/22 at 2100, Until Discontinued, Post-op 210 ($ Given - Provider: Dora Cervantes RN) 0759 ($ Given - Provider: Roberta Wiggins) hyoscyamine (Levsin SL) sublingual tablet 0.125 mg 0.125 mg, Sublingual, EVERY 6 HOURS, First dose on Mon12/14/22 at 1330, Until Discontinued, Post-op 1437 ($ Given - Provider: Juliet Holman RN)1619 ($ Given - Provider: Juliet Holman RN)2347 ($ Given - Provider: Gabrielle Sage) 0645 ($ Given - Provider: Dora Cervantes, AIDE)1045 ($ Given - Provider: Roberta Wiggins) iopamidol (Isovue 370) 76 % contrast Oral, CONTRAST ONCE, Starting on Mon12/15/22 at 0617, Until Mon12/15/22 at 1733 0952 ($ Given - Cont rast - Provider: Lisa Angela) ketorolac (Toradol) injection 15 mg 15 mg, Intravenous, EVERY 8 HOURS, 6 doses, First dose on Mon12/14/22 at 1715, Last dose on Mon12/16/22 at 0600, Given 8 hours from preop celebrex Do not give if GFR <60 Dose not to exceed 60mg daily, Post-op 1619 ($ Given - Provider: Juliet Holman RN)2102 ($ Given - Provider: Dora Cervantes, AIDE) 0643 ($ Given - Provider: Dora Cervantes, AIDE)1322 ($ Given - Provider: Roberta Wiggins) lidocaine PF (Xylocaine MPF) 1 % injection 0.5 mL (COMPLETED) 0.5 mL, Infiltration, PRE-OP ONCE, 1 dose, On Mon12/14/22 at 0915, May be used (0.5 ml locally to anesthetize prior to insertion). For patients not allergic to local anesthetics., Pre-op 0915 ($ Given - Provider: Velia Edmond, AIDE) magnesium hydroxide (Milk Of Magnesia) suspension 15 mL 15 mL, Oral, DAILY, First dose on Rebecca 12/15/22 at 0900, Until Discontinued, Shake well before using. 0758 ($ Given - Provider: Roberta Wiggins) ondansetron (Zofran) injection 4 mg 4 mg, Intravenous, EVERY 6 HOURS, First dose on Mon12/14/22 at 1330, Until Discontinued, Administer over 2 to 5 minutes., Post-op 1437 ($ Given - Provider: Juliet Holman RN)2052 ($ Given - Provider: Dora Cervantes RN)2347 ($ Given - Provider: Gabrielle Sage) 0643 ($ Given - Provider: Dora Cervantes, AIDE)1045 ($ Given - Provider: Roberta Wiggins) pantoprazole (Protonix) injection 40 mg 40 mg, Intravenous, DAILY, 365 doses, First dose on Mon12/14/22 at 1330, Last dose on Mon12/13/23 at 0900, For every 40 mg of pantoprazole mix with 10 mL Normal Saline (final concentration = 4 mg/mL). Inject SLOWLY over 2 min., Post-op 1436 ($ Given - Provider: Juliet Holman RN) 0759 ($ Given - Provider: Roberta Wiggins) prochlorperazine (Compazine) injection 5 mg (COMPLETED) 5 mg, Intravenous, POST-OP MULTIPLE, 2 doses, Starting on Mon12/14/22 at 1235, Until Mon12/14/22 at 1302, Second choice, use if first choice was ineffective., PACU 1237 ($ Given - Provider: Viridiana Aguirre, AIDE)1302 ($ Given - Provider: Viridiana Aguirre, AIDE) scopolamine (Transderm-Scop) 1 patch(Linked Group 1) 1 patch, Administer over 72 Hours, PRE-OP ONCE, 1 dose, On Mon12/14/22 at 0915, Apply patch behind the ear, do not cut patch, only 1 patch should be worn at a time and remove old patch before applying new patch.This patch may contain metal and is not compatible with MRI. Notify radiology of patch location upon arrival to MRI. Each patch contains 1.5 mg scopolamine base and is formulated to deliver 1 mg of scopolamine over 72 hours. 0914 ($ Applied - Provider: Velia Edmond RN) 1633 (Due: Removed - Provider: Generic, Auto Release - Comment: Time automatically adjusted from order being discontinued) simethicone (Mylicon) drops 80 mg (CANCELED) 80 mg, Oral, 4 TIMES DAILY AFTER MEALS AND AT BEDTIME, First dose on Mon12/14/22 at 1600, Until Discontinued, Shake well before using. 1619 ($ Given - Provider: Juliet Holman RN)1846 (Not Administered - Provider: Juliet Holman RN - Reason: Refused-Patient)2051 ($ Given - Provider: Dora Cervantes RN) Continuous Medication Order 12/13/2022 12/14/2022 2022 0.45% NaCl with potassium chloride 20meq infusion at 75 mL/hr, Intravenous, CONTINUOUS, Starting on Mon12/14/22 at 1330, Until Mon12/15/22 at 1733, Do not infuse at same time as other fluids., Post-op 1441 ($ New Bag/Syringe - Provider: Juliet Holman RN) 0058 ($ New Bag/Syringe - Provider: Dora Cervantes RN)0644 ($ New Bag/Syringe - Provider: Dora Cervantes, AIDE)0801 (Rate Change - Provider: Roberta Wiggins) lactated ringers infusion (CANCELED) at 20 mL/hr, Intravenous, PRE-OP CONTINUOUS, Starting on Mon12/14/22 at 0915, Until Mon12/14/22 at 1416, Please place order for second bag of LR for all robotic surgeries, and all carotid endarterectomies., Pre-op 1057 ($ New Bag/Syringe - Provider: Ana Culver APRN-DIESEL SCOOP OPERATOR)1157 ($ New Bag/Syringe - Provider: STACI Almonte)1222 (Anesthesia Volume Adjustment - Provider: STACI Almonte) PRN Medication Order 12/13/2022 12/14/2022 2022 0.9% NaCl injection (CANCELED) PRN, Starting on Mon12/14/22 at 1131, Until Mon12/14/22 at 1231, Intra-op 1210 ($ Given - Provider: Anthony Martell MD - Comment: blended with 20 mL 1.3% Exparel) 0.9% nacl irrigation solution (COMPLETED) CONTINUOUS PRN, Starting on Mon12/14/22 at 1125, Until Mon12/14/22 at 1125, Intra-op 1125 ($ New Bag/Syringe - Provider: Anthony Martell MD - Comment: to suction condenser winder for prn use) acetaminophen (Tylenol) solution 500 mg 500 mg, Oral, DAILY PRN, Moderate Pain, for moderate breakthrough pain given 4 hours after previous scheduled dose of tylenol, Starting on Mon12/14/22 at 1327, Until Rebecca 12/15/22 at 1733, for moderate breakthrough pain given 4 hours after previous scheduled dose of tylenol Patient preference for lesser PRN pain meds may be honored when the patient requests a less strong medication, a lower dose, or a less intrusive route of administration when the lesser drug, dose and route have been ordered for the patient. This patient request must be documented in the MAR., Post-op bupivacaine liposome (Exparel) 1.3 % injection (CANCELED) PRN, Starting on Mon12/14/22 at 1131, Until Mon12/14/22 at 1231, Intra-op 1210 ($ Given - Provider: Anthony Martell MD - Comment: blended with 40 mL injectable 0.9% NaCl) fentaNYL (PF) (Sublimaze) injection 50 mcg (CANCELED) 50 mcg, Intravenous, EVERY 10 MIN PRN, Severe Pain, 4 doses, Starting on Mon12/14/22 at 1236, Until Mon12/14/22 at 1416, Maximum total of 4 doses If patient reaches max total dose, please consult anesthesiologist prior to further administration of pain meds. Hold pain meds if there are signs of hypoventilation. Patient preference for lesser PRN pain meds may be honored when the patient requests a less strong medication, a lower dose, or a less intrusive route of administration when the lesser drug, dose and route have been ordered for the patient. This patient request must be documented in the MAR., PACU 1238 ($ Given - Provider: Viridiana Aguirre RN)1302 ($ Given - Provider: Viridiana Aguirre RN)1340 ($ Given - Provider: Viridiana Aguirre RN) fluticasone propionate (Flonase) nasal spray 1 spray 1 spray, Each Nostril, DAILY PRN, nasal congestion, Starting on Mon12/14/22 at 1339, Until Rebecca 12/15/22 at 1733, Shake gently before use. metoclopramide (Reglan) injection 10 mg 10 mg, Intravenous, EVERY 6 HOURS PRN, Nausea/Vomiting, Starting on Mon12/14/22 at 1327, Until Rebecca 12/15/22 at 1733, Inject undiluted IV slowly over 1 to 2 minutes., Post-op nitroGLYCERIN (Nitro-Bid) 2 % ointment 1 inch 1 inch, Topical, 3 TIMES DAILY PRN, HTN, Starting on Mon12/14/22 at 1339, Until Rebecca 12/15/22 at 1733, If blood pressure more than 160mmHg systolic or 100mmHg diastolic oxyCODONE (Roxicodone) oral solution 5 mg 5 mg, Oral, EVERY 6 HOURS PRN, Severe Pain, Starting on Mon12/14/22 at 1327, Until Rebecca 12/15/22 at 1733, Patient preference for lesser PRN pain meds may be honored when the patient requests a less strong medication, a lower dose, or a less intrusive route of administration when the lesser drug, dose and route have been ordered for the patient. This patient request must be documented in the MAR., Allow a repeat dose for severe pain? No, Post-op 1437 ($ Given - Provider: Juliet Holman RN)2052 ($ Given - Provider: Dora Cervantes RN) 1046 ($ Given - Provider: Roberta Wiggins) simethicone (Mylicon) drops 80 mg 80 mg, Oral, 4 TIMES DAILY PRN, Gas Pain, Starting on Rebecca 12/15/22 at 0745, Until Rebecca 12/15/22 at 1733, Shake well before using. Linked Groups Order Group 1: scopolamine (Transderm-Scop) 1 patchJump to med 1 patch, Administer over 72 Hours, PRE-OP ONCE, 1 dose, On Mon12/14/22 at 0915, Apply patch behind the ear, do not cut patch, only 1 patch should be worn at a time and remove old patch before applying new patch.This patch may contain metal and is not compatible with MRI. Notify radiology of patch location upon arrival to MRI. Each patch contains 1.5 mg scopolamine base and is formulated to deliver 1 mg of scopolamine over 72 hours. And scopolamine patch placement confirmation (CANCELED) Transdermal, 2 TIMES DAILY, 730 doses, First dose on Mon12/14/22 at 0915, Last dose on Mon12/13/23 at 2100, Patient has a patch to be confirmed on transition to inpatient and 2 times daily., Pre-op documented in this encounter Care Teams Automatic Quilling Machine Operator Relationship Specialty Start Date End Date Pa[facility] [address] [place] [address] PCP - General Nurse Practitioner 10/24/22 documented as of this encounter
--- OUTSIDE RECORDS SUMMARY | 2024-10-07 02:45 | XMS_ITS | Encounter Summary ---
Author Organization [facility] Address [address] [facility] [place] [address] Care Team Providers Care Serging Machine Operator Name Role Phone Crystal Cedeno Primary Care Provider [phone] Reason for Visit * Reason Comments Follow-up Encounter Details Date Type Department Care Team (Late st Contact Info) Description 12/21/2022 10:00 AM CDT Office Visit [facility] [id number] [place] [id number] Elis Milligan, PACKING AND STAMPING MACHINE OPERATOR-CAREER PROFESSIONAL [id number] [facility] [address] [place] [address] Morbid obesity (HCC) (Primary Dx); Bariatric surgery status Social History Tobacco Use [...] and heating? Not hard at all 12/14/2022 [facility] - Occupational Stress [...] place to sleep or slept in a assisted (including now)? No 12/14/2022 Sex and Gender [...] Coronavirus/COVID-19? No / Unsure 11/30/2022 11:41 AM ASSEMBLER GOLD FRAME documented as of this encounter Last Filed Vital Signs Vital Sign Reading Time Taken Comments Blood Pressure 115/80 12/21/2022 9:41 AM CDT Pulse 72 12/21/2022 9:41 AM CDT Temperature 36.8 ??C (98.3 ??F) 12/21/2022 9:41 AM CD T Respiratory Rate - - Oxygen Saturation 96% 12/21/2022 9:41 AM CDT Inhaled Oxygen Concentration - - Weight 153.5 kg (338 lb 6.4 oz) 12/21/2022 9:41 AM CDT Height 165.1 cm (5' 5 ) 12/21/2022 9:41 AM CDT Body Mass Index 56.31 12/21/2022 9:41 AM CDT documented in this [...] Patient Instructions * Patient Instructions* Elis Milligan, KEVIN-CAREER PROFESSIONAL - 12/21/2022 10:05 AM CDT POST OPERATIVE VISIT INSTRUCTIONS 1 WEEK Disposing of your unused narcotics: - Please use this website to locate disposal locations -[email or web address] Dietary Journaling helps keep you honest and on track! Calculate your protein grams every day. For Eveyln en-Y divided gastric bypass patients; females should have a minimum of 60 grams per day, men 80 grams of protein per day. For adjustable gastric band patients; you should be eating your protein first. You should be getting 64 ounces of water per day. Liquids from your protein supplementation can count toward your fluid goals. Advance diet as outlined in your nutrition booklet. Limit coffee to 1 to 2 cups per day. Meals should take a minimum of 30 minutes to consume. Once you can start eating don't graze on cheese, peanut butter and nuts to meet your protein goals. Drink liquid protein between meals for hunger. Dietary indiscretion can be fatal. Contact our office if this occurs. Vitamins If you are a sleeve or Duodenal Switch patient, Start your vitamins today as directed Gastric Bypass patients continue to hold your vitamins until your 1 month follow up appointment Use only vitamins recommended by our program. Your bariatric MVI needs to be a chewable or you will need to open up your capsule for the first month and add to food or drink. Calcium citrate supplement will need to be a powder formula for the first month Please refer back to your booklet and handouts for the most current list. Exercise You may start doing any cardio activity that includes your legs and arms. No heavy lifting over 20 lbs for another 3 weeks No core exercises for another 3 weeks Take one more step tomorrow than what you took today. Behavior Modification Make a list of behaviors that got you here in the first place. Put that list in a place you visit often. Please don't weigh daily or monthly. Weighing once a week is a healthy habit. Wound Care No swimming or tub baths until we see you again. As long as you have drainage, keep your incision site covered as you have been. Continue to remove the bandage and get soap and water over your drain site in the shower. No peroxide or antibiotic ointment to any of the incision sites. Once the drainage has stopped, please leave the wound open to air. Call us for a temperature greater than 100.5. General Medical You should restart your CPAP no later than 3 weeks from now. If you are having difficulty sleeping you may restart it now. Rest and pain medicine should help alleviate pain, if it does not, please let us know. Vomiting is not normal. If you cannot attribute vomiting to something that you have done, please notify our office. For females control is strongly recommended for the first 18 months after surgery. Support groups are helpful and important in dealing with your disease, please attend them. Medications--General Information You do not have to crush your pills. Please take whole pills, if smaller than a regular size aspirin. If the pill is large, cut it into 2 pieces. You may take a couple of small pills at a time. If you feel the pulling and stretching on the pouch when you take your pills that is ok. Take fewerpills at a time or consume less water the next time you take your medicines. Walking will also helpmedications to go through the pouch. You should not vomit after taking medications. Ulcer Prevention Ulcer medications should be taken for a minimum of 6 months after surgery. DO NOT SMOKE. If you return to smoking notify our office immediately. Blood Pressure Medication If you consistently find yourself getting light headed when you go from a laying positions to a sitting position OR from a sitting position to a standing position, contact your primary care physicianfor a medication adjustment. Diabetic Medication Continue to monitor your blood sugars as previously required. Once your fasting blood sugar is lessthan 120 mg/dl for 3 consecutive mornings please notify your primary care physician for a medication adjustment. Psychiatric Medication If not restarted, please do so immediately. If you do not feel well controlled on your current medication regimen, please call your primary care physician or psychiatrist for a medication adjustment. Follow-up For a Evelyn-en-Y divided gastric bypass, vertical sleeve gastrectomy, Duodenal Switch or revision your next appointment will be in 3 weeks. Adjustable gastric band patients will be directed to the next appropriate band fill clinic. documented in this encounter Progress Notes * Elis Milligan APRN-CNP - 12/21/2022 10:00 AM CDT Bariatric Surgery Clinic Note Leti Soto Previous Procedure: Laparoscopic sleeve gastrectomy ( Jas[facility]ir ) Date of Procedure: 12/14/2022 Initial Weight: 340 Todays Weight: 338 Weight Lost: 2 lb IBW: 155 EBW: 185 % of EBW loss: Subjective: Patient is here today for their 1 week post surgery follow up Patient reports overall she is doing well Patient is getting in all the protein, 60-80 gm Patient is getting in fluids , 64 oz Patient has not started on the recommended daily vitamins as instructed Patient has been up and ambulating. Patient denies any fevers, CP or SOB Patient denies any nausea, vomiting or reflux. Patient has started on the PPI as instructed Abdominal pain is minimal and she weaning off pain medication and taking once a day at night Patient is moving their bowels without difficulty. Data Vitals: 12/21/22 0941 BP: 115/80 Pulse: 72 Temp: 98.3 ??F (36.8 ??C) SpO2: 96% Weight: (!) 153.5 kg (338 lb 6.4 oz) Height: 1.651 m (5' 5 ) BMI (Calculated): 56.31 Current Outpatient Medications Medication ??? acetaminophen (Tylenol) 160 MG/5ML solution ??? buPROPion XL 24hr (WELLBUTRIN-XL) 300 MG tablet ??? FLUoxetine (PROZAC) 20 MG capsule ??? levonorgestrel (Mirena) 20 MCG/DAY IUD ??? oxyCODONE (Roxicodone) 5 MG/5ML oral solution ??? Simethicone (MYLICON PO) No current facility-administered medications for this visit. Recent Labs Component Name 12/15/22 0437 12/14/22 [...] 35.2* 34.3* 34.3 PLTCOUNT 267 [id number] 193 Physical Exam A+O x 3, NAD ABD soft, ND, NT, incisions C/D/I, no e/o hernias Neg BLE edema Assessment/Plan: Pt s/p Laparoscopic sleeve gastrectomy - we reviewed postoperative complications following bariatric surgery and when to call the office. Patient is to advance to phase 2 of the diet - phase 2 diet was reviewed. We discussed ways to achieve protein and fluids goals - patient is to continue on phase 2 diet for 3 weeks until seen back in the office - we discussed signs and symptoms of dehydration and when to call the office Incisional pain - pain has overall improved - patient is weaning off pain medication - continue with ICE pack PRN - continue with abdominal binder - patient is to call the office with any worsening abdominal pain. Patient is to advance activity to include light cardio,light weights and no heavy lifting over 15 lbs for the next 3 weeks. Patient is not to start on the recommended daily vitamins until the 1 month visit Patient is to follow up with PCP in 1-2 week Patient is to RTC in 3 weeks . CARLOS Casillas documented in this encounter Plan of Treatment Not on file documented as of this encounter Visit Diagnoses Diagnosis Morbid obesity (HCC)- Primary Morbid obesity Bariatric surgery status documented in this encounter Care Teams Serging Machine Operator Relationship Specialty Start Date End Date Crystal Cedeno [address] [place] [address] PCP - General Nurse Practitioner 10/24/22 documented as of this encounter
--- OUTSIDE RECORDS SUMMARY | 2024-10-07 02:45 | XMS_ITS | Encounter Summary ---
Author Organization [facility] Address [address] [facility] [address] Care Team Providers Care Tire Tester Name Role Phone Malena Munoz MD Primary Care Provider [phone] Reason for Visit * Reason Onset Date Comments Results 06/30/2020 Encounter Details Date Type Department Care Team (Late st Contact Info) Description 06/30/2020 Telephone [facility] [address] [phone] Bekah Kc, [employer] [address] [place] [address] Results Social History Tobacco Use Types Packs/Day Years [...] Exposure Response Date Recorded In the last month, have you been in contact with someone who was confirmed or suspected to have Coronavirus / COVID-19? Unable to assess 06/29/2020 11:06 AM CDT documented as of this encounter Functional [...] Diagnoses Not on filedocumented in this encounter Additional Health Concerns Infection Onset Date Last Indicated Resolved Time COVID-19 Under Investigation 06/29/2020 06/29/2020 06/30/2020 6:30 AM CDT documented as of this encounter Care Teams Tire Tester Relationship Specialty [place] [address] [phone] PCP - General 07/17/19 01/22/21 documented as of this encounter
--- OUTSIDE RECORDS SUMMARY | 2024-10-07 02:45 | XMS_ITS | Encounter Summary ---
Author Organization [facility] Address [address] [place] [address] Care Team Providers Care Mileage Clerk Name Role Phone Unavailable Primary Care Provider Unavailabl e Reason for Visit * Reason Comments Follow-up follow up Encounter Details Date Type Department Care Team (Late st Contact Info) Description 02/25/2021 9:40 AM CDT Office Visit [facility] [id number] [place] [address], [facility] [address] [place] [address] Nydia Armas MD [facility] [address] [phone] Morbid obesity due to excess calories (HCC) (Primary Dx); Anxiety and depression; Situational anxiety Social History Tobacco Use Types Packs/Day Years [...] Sign Reading Time Taken Comments Blood Pressure 122/80 02/25/2021 9:43 AM CDT Pulse 80 02/25/2021 9:43 AM CDT Temperature 36.6 ??C (97.8 ??F) 02/25/2021 9:43 AM CD T Respiratory Rate - - Oxygen Saturation - - Inhaled Oxygen Concentration - - Weight 100.2 kg (221 lb) 02/25/2021 9:43 AM CDT Height 167.6 cm (5' 6 ) 02/25/2021 9:43 AM CDT Body Mass Index 35.67 02/25/2021 9:43 AM CDT documented in this encounter Functional [...] as of this encounter Progress Notes * Nydia Armas MD - 02/25/2021 9:56 AM CDT Bariatric FollowUp Visit Chief Complaint: Obesity, severe: Other relevant comorbidities: anxiety and depression. HPI: The patient is here for follow-up for medical wt loss. Adherence to plan is Poor as judged by the change in weight. Review of Systems: - Dietary and activity implemented by the patient include: feels consumed by logging food and counting calories. Eats better still. No light headedness, dizziness or excessive fatigue. No chest pain, irregular hear beats or leg swelling No abdominal cramps, No change in bowel habits. No leg cramps, calf pain, ulcers or cold extremities. No mood change, unusual feelings of anxiety, depression or irritability No change in sleeping habits. - significant Changes in medical history since prior visit: feels more foot pain with worsening of plantar fascitis. - feels depression and anxiety are well controlled on current meds. OBJECTIVE: BP 122/80 Pulse 80 Temp 97.8 ??F (36.6 ??C) Ht 5' 6 (1.676 m) Wt 221 lb (100.2 kg) BMI 35.67 kg/n6Kwtlyh: 5' 6 (167.6 cm) Body mass index is 35.67 kg/m??. CrCl cannot be calculated (Patient's most recent lab result is older than the maximum 15 days allowed.). Wt Readings from Last 3 Encounters: 02/25/21 221 lb (100.2 kg) 01/14/21 211 lb (95.7 kg) 11/12/20 222 lb (100.7 kg) BP Readings from Last 3 Encounters: 02/25/21 122/80 05/11/19 138/70 04/04/19 110/70 General: No distress, well nourished with Central obesity body habitus Mood Normal and cooperative. No Agitation, Not visibly Depressed Neuro Alert & Oriented No Nystagmus Cranial Nerves are Grossly intact, No Lateralized weakness or sensory loss. Skin Warm and dry, skin Tags None, Acanthosis None Head Normocephalic, atraumatic, No Thinning Brows, Acne, or excessive facial hair. No Parotid hypertrophy. Eyes: PEERL, EOM-intact, sclera clear. Conjunctivae wnl. Neck No masses, no Thyroid Enlargement or Scars, CVS Regular rate and rhythm, no gallop or Murmur Lungs: Clear to auscultation w/o Crackles or Wheezing, Good respiratory effort Abdomen: Limited examination. Lower extremity no Edema No Tender Calves No Varicosities No Ulcers Musculo-Skeletal: No Gait/balance abnormalities No Gross Atrophy or ROM limitation Allergies Allergen Reactions ??? Tramadol Other Shaky, increased heart rate, sweating. ??? Penicillins Rash Social History Smoking status: Never Smoker Smokeless tobacco: Never Used Alcohol use: No Drug use: No Sexual activity: Yes Partners with: Male Family History Problem Relation Name Age of Onset ??? Depression Mother ??? Anxiety Disorder Mother ??? Hypertension Father ??? Diabetes Father ??? Heart Disease Father no [place] ??? Depression Maternal Grandmother ??? Anxiety Disorder Maternal Grandmother agoraphobia ??? Diabetes Maternal Grandfather ??? Heart Disease Maternal Grandfather ??? Cancer - Breast Paternal Grandmother ??? Cancer - Breast Other 2 maternal great aunts Past Medical History: Diagnosis Date ??? NEGATIVE [...] 5 ??? FLUoxetine (PROZAC) 20 MG capsule 40 mg ??? omeprazole (PRILOSEC) 20 MG capsule Take 20 mg by mouth daily before breakfast ??? ondansetron, disintegrating, (ZOFRAN ODT) 4 MG tablet Take 1 tablet by mouth every 6 hours as needed for Nausea/Vomiting Allow tablet to dissolve on the tongue 20 tablet 0 ??? Vit-Fe Fumarate-FA ( VITAMIN) 28-0.8 MG tablet Take 1 tablet by mouth once daily ??? raNITIdine (ZANTAC) 150 MG capsule Take 150 mg by mouth once daily No current facility-administered medications for this visit. Labs/studies: [_x_]-Reviewed [__]-None reported [_x_]-Updated Screening Labs Requested Impression and Plan: Assessment: Obesity Class moderate: - Obesity: worsening over the last 6 weeks with 11 pounds of wt gain in 6 weeks. The recommended plan d/w the patient and agreed, is to switch to the simplified calorie control plan with putting back a third of the food normally consumes. Marinating 30 min of treadmill walking, possibly adding extra 30 min 4 times a weeks. Consider increasing protein shaked from 2 x per week to once daily replacing a meal. - Anxiety and depression : stable at this time of a Bupropion and prozac Combination.: continue current plan - Bariatric surgery is not an option for this patient given the extent of obesity and the existing co-morbidities. Pharmaceutical interventions: ___x__ Considering the patient current progress and comorbidity, No weight loss medications is recommended at this time, however, we will reassess that in the near future.. Appetite suppressants may be considered later depending on progress and patient's response tocalorie restriction Continue Phentermine (37.5 mg/d). Side effects discussed with the patient. Continue Qsymia as per protocol. Side effects discussed with the patient. - Side effects discussed and patients questions answered. - The patient is agreeable. Plan: Motion Picture Equipment Supervisor care is recommended. ___x__ The patient received detailed Menu plan for the recommended daily calories intake (1200-1500calories/day). ___x__ Meal Replacement Products (2-3 protein shakes) per day as part of the recommended diet __x___ A simplified calorie control option as detailed in the initial after visit summary is recommended if full calorie control over meal preparations is not feasible. Licensed Professional Counselor evaluation recommended Physical Activity counseling is recommended. Information provided. __x___ Discussed low/moderate impact exercise options. Specific examples and recommendations were provide. Cardio pulmonary rehab exercise program is recommended if approved by cardiology. __x___ Activity of 20-30 minutes of walking is recommended 5-7 days of the week. If walking is limited by back or low extremity problems, recumbent bike or water aerobics would be an adequate substitute. __x___ Physical activity can be broken into several shorter session if longer activity session are not well tolerated or if it does not easily fit in daily schedule. __x___ Behavioral modification classes are strongly recommended. ___x__ Specific Behavioral modification goals and written plan were provided for the patient. Updated metabolic calculation sheet prepared and discussed at length with the patient. ___x__ Personalized Diet plan was provided to the patient. - Continue Food journal. - encouraged to maintain physical activity to 15-30 minutes of walking or equivalent activity 4-5 days of the weeks with self-monitoring. - Avoidance of unhealthy snacking is highlighted. ICD-10-CM 1. Morbid obesity due to excess calories E66.01 2. Anxiety and depression F41.9 F32.9 3. Situational anxiety F41.8 ___x__ Follow up with Dr. Armas, in 6 weeks. I spent 30 minutes on day of service in patient care including documentation, preparation of metabolic report, review of medications. Nydia Armas MD 02/25/2021 documented in this encounter Plan of Treatment Not on file documented as of this encounter Visit Diagnoses Diagnosis Morbid obesity due to excess calories (HCC)- Primary Anxiety and depression Dysthymic disorder Situational anxiety Other anxiety states documented in this encounter
--- OUTSIDE RECORDS SUMMARY | 2024-10-07 02:45 | XMS_ITS | Encounter Summary ---
Author Organization [facility] Address [address] [facility] [place] [address] Care Team Providers Care Supervisor Core Drilling Name Role Phone Malena Munoz MD Primary Care Provider [phone] Encounter Details Date Type Department Care Team (Latest Contact Info) Description 06/29/2020 11:08 AM CDT - 06/29/2020 11:59 PM CDT Hospital Encounter [facility] [employer] [address] [address] Allie Lacy, HEALTH INFORMATION INTERNSHIP-INTRAN[employer] DEVELOPER [address] [place] [address] Discharge Disposition: Home or Self Care Social [...] No 05/07/2019 documented as of this encounter Medications at Time of Discharge Medication Sig Dispensed Refills Start Date End Date buPROPion XL 24hr (WELLBUTRIN-XL) 300 MG tablet Take 1 (one) tablet by mouth every morning 02/26/2020 FLUoxetine (PROZAC) 20 MG capsule Take 3 (three) capsules by mouth once daily 03/05/2020 buPROPion XL 24hr (WELLBUTRIN-XL) 150 MG tablet 03/08/2020 11/17/2022 diphenhydrAMINE (BENADRYL) 25 MG capsule Take 25 mg by mouth every 6 hours as needed for Itching Reported on 12/22/2016 11/17/2022 docusate sodium (COLACE) 100 MG capsule Take 1 capsule by mouth 2 times daily 60 capsule 5 11/26/2018 11/17/2022 omeprazole (PRILOSEC) 20 MG capsule Take 20 mg by mouth daily before breakfast 11/17/2022 ondansetron, disintegrating, (ZOFRAN ODT) 4 MG tablet Take 1 tablet by mouth every 6 hours as needed for Nausea/Vomiting Allow tablet to dissolve on the tongue 20 tablet 04/04/2019 11/17/2022 Vit-Fe Fumarate-FA ( VITAMIN) 28-0.8 MG tablet Take 1 tablet by mouth once daily 11/17/2022 raNITIdine (ZANTAC) 150 MG capsule Take 150 mg by mouth once daily 11/17/2022 documented as of this encounter Plan of Treatment Not on file documented as of this encounter Procedures Procedure Name Priority Date/Time Associated Diagnosis Comments SARS-COV-2 (COVID-19) IN HOUSE Routine 06/29/2020 11:10 AM CDT Sore throat documented in this encounter Results * [facility] ([facility]) (06/29/2020 11:10 AM CDT) COVID-19 PCR Not detected Not detected 06/30/2020 6:30 AM CDT [facility] Microbiology SPECIMEN FROM NASOPHARYNGEAL STRUCTURE / Unknown Collection / Unknown 06/29/2020 11:10 AM CDT 06/29/2020 11:10 AM CDT Narrative [facility] - 06/30/2020 6:30 AM CDT This Real Time RT-PCR assay was developed and its performance characteristics determined by [facility]. This test has been authorized by the Food and Drug administration (FDA)under an Emergency Use Authorization (EUA). This test has been validated [...] this EUA assay are available upon request. Yarely Beauchamp HEALTH INFORMATION INTERNSHIP-[employer] DEVELOPER LAB - [facility] OLOGY ORDERABLES [facility] [address] [place] [address] [phone] documented in this encounter Visit Diagnoses Diagnosis Sore throat Acute pharyngitis documented in this encounter Additional Health Concerns Infection Onset Date Last Indicated Resolved Time COVID-19 Under Investigation 06/29/2020 06/29/2020 06/30/2020 6:30 AM CDT documented as of this encounter Care Teams Supervisor Core Drilling Relationship Specialty [place] [address] [place] [phone] PCP - General 07/17/19 01/22/21 documented as of this encounter
--- OUTSIDE RECORDS SUMMARY | 2024-10-07 02:45 | XMS_ITS | Encounter Summary ---
Author Organization [facility] Address [address] [place] [address] Care Team Providers Care Coal Hiker Name Role Phone Malena Munoz MD Primary Care Provider [phone] Encounter Details Date Type Department Care Team (Latest Contact Info) Description 09/28/2020 Travel Social History Tobacco Use Types Packs/Day Years [...] have Coronavirus / COVID-19? Unable to assess 09/28/2020 9:24 AM POLICY OFFICER documented as of this encounter Functional Status [...] Last Indicated Resolved Time COVID-19 Under Investigation 09/28/2020 09/28/2020 09/28/2020 10:48 PM POLICY OFFICER COVID-19 Confirmed 09/28/2020 09/28/2020 4:35 AM POLICY OFFICER documented as of this encounter Care Teams Coal Hiker Relationship Specialty [place] [address] [phone] PCP - General 07/17/19 01/22/21 documented as of this encounter
--- OUTSIDE RECORDS SUMMARY | 2024-10-07 02:45 | XMS_ITS | Encounter Summary ---
Author Organization [facility] Address [address] [place] [place] [address] Care Team Providers Care Bolt Cutter Name Role Phone Crystal Cedeno Primary Care Provider [phone] Reason for Visit * Auth/Cert (Routine) Specialty Diagnoses / Procedures Referred By Contac t Referred To Contact Diagnoses Morbid (severe) obesity due to excess calories (HCC) Hiatal hernia Procedures OK LAP SLEEVE GASTRECTOMY OK LAP PARAESOPHAG AMY REPAIR Referral ID Status Reason Start Date Expiration Date Visits Re quested Visits Authorized [id number] 1 1 Encounter Details Date Type Department Care Team (Latest Contact Info) Description 12/14/2022 8:47 AM CDT - 2022 4:33 PM CDT Hospital Encounter [facility] 2S SURG/BARIATRIC [address] [place] [address] [place] [address] [facility] [address] [place] [address] Surgery General Discharge Disposition: Home or Self Care Social [...] Not hard at all 12/14/2022 [facility] [place] [facility] - Occupational [...] place to sleep or slept in a halfway (including now)? No 12/14/2022 Sex and Gender [...] Coronavirus/COVID-19? No / Unsure 11/30/2022 11:41 AM AREA COORDINATOR documented as of this encounter Last Filed Vital Signs Vital Sign Reading Time Taken Comments Blood Pressure 133/76 2022 9:01 AM CDT Pulse 73 2022 9:01 AM CDT Temperature 36.8 ??C (98.2 ??F) 2022 9:01 AM CD T Respiratory Rate 18 2022 9:01 AM CDT Oxygen Saturation 96% 2022 9:01 AM CDT Inhaled Oxygen Concentration - - [...] (!) 154.4 kg (340 lb 6.4 oz) (12/14/22 09) 2022 [id number] 1990 Admitting Diagnosis Clinically Severe Obesity with [...] Take 15 mL by mouth as needed CARLOS Springer * magnesium hydroxide 400 MG/5ML [...] 2 times daily as needed for Constipation CARLOS Springer simethicone 40 MG/0.6ML drops Commonly known as: Mylicon Quantity Dispensed: 45 mL Take 1.2 mL by mouth 4 times daily as needed for Gas Pain Leti Hunt, SPORTS BOOK BOARD ATTENDANT-HOURLY CAREGIVER * This list has 2 medication(s) that [...] Campos PharmD - 2022 8:21 AM CDT [facility] Pharmacy Services Admission Medication Review Leti Soto [...] for the opportunity to take part of Leti Soto's care. Bipin Campos PharmD * Leti Hunt APRN-HOURLY CAREGIVER - 2022 8:07 AM CDT Bariatric Surgery [...] drops 80 mg Recent Labs Component Name 12/15/227 12/14/22 0916 12/07/22 1258 11/04/20 0841 SODIUM 138 - 136 140 POTASSIUM 4.0 4.7 4.0 4.1 CHLORIDE 107 - 110* 104 CO2 23 - 20* 23 BUN 8 - 25* 9 CREATININE 0.56* - 0.60 0.67 GLUCOSE 87 - 83 70 CALCIUM 8.7 - 8.5 8.9 Recent Labs Component Name 12/15/2243612/07/22 1258 11/04/20 0842 WBC 10.6 9.1 3.5 [...] monitor oral intake, discharge instructions reviewed Leti Hunt, SPORTS BOOK BOARD ATTENDANT-HOURLY CAREGIVER * Juliet Holman RN - 2022 7:35 AM CDT Problem: Pain/Discomfort Goal: Patient exhibits reduced pain/discomfort as evidenced by pain scores Outcome: Progressing * Dora Cervantes RN - 12/14/2022 10:54 PM CDT [...] of care: Home Prior to admit provider: None Discharge Goals and Plans: Patient Goals: Home Plans: No discharge needs identified at this time. Consult Case Management if discharge planning needs arrise. Upon discharge or transfer to a post acute facility should rehospitalization, home health, rehabilitation, or any other follow up care be required, patient's preference is to stay within the [facility] Network and its affiliates.: Unsure Comments: LAPAROSCOPIC SLEEVE GASTRECTOMY Resides spouse. RN and IndependentLEXIS will follow up forpotential needs. Lives with: Spouse Physical Limitations: None Requires Assistance With: None Preferred Pharmacy: [id number] - [address] [facility] [id number] [address] Advance Directive: No Advance Directive Information Given: Will be offered upon admission READMISSION RISK SCORE is 3 at 3:09 PM 12/14/2022. Met with patient Family Support (name and phone): Extended Emergency Contact Information Primary Emergency Contact: MAHENDRA LOONEY Address: [address] [place] [address] Mobile Relation: Spouse Patient or provider relations representative requests care coordination reach out to family or caregiver listed above regarding discharge planning and at time of discharge? No Patient/Family provided with list of resources? No Preferred Provider / High Quality Network List given?: No Reason for provider choice: Unknown Equipment at Home: None List DME pt. requires but does not have.: None [employer] Referral: No Will continue to follow. For any questions or needs please contact: Seed Corn Production Manager Name/Phone number: Katerine Lopez RN * Juliet [...] past including medical, exercise and dietary without detention success. Pt has now attained a BMI (Calculated): 56.65 and has failed multiple non surgical weight loss regimens for >5yrs. BMI: Body mass index is 56.65 kg/m??. [place] body weight: 57 kg (125 lb 10.6 oz) Adjusted ideal body weight: 96 kg (211 lb 8.9 oz) Medical: currently on phentermine from pcp - few lb weight loss in last month, nothing significant Has been on qsymia/phentermine, has seen dr prince -wt 222 in 2020 and now 339 -heaviest 480 lbs Review of previous provider notes in [facility] Everywhere was performed on the day of service. Past Medical History: Diagnosis Date ??? BMI 50.0-59.9, adult (CMS/HCC) ??? Depression Post ??? NEGATIVE PAST MEDICAL HISTORY - SEE PROBLEM LIST Past Surgical History: Procedure Laterality Date ??? Cholecystectomy, Laparoscopic 2008 ??? ENDOSCOPY, UPPER N/A 11/17/2022 N/A; ESOPHAGOGASTRODUODENOSCOPY (EGD) DIAGNOSTIC ??? LASIK SURGERY Bilateral 11/2016 ??? [place] Tooth Extraction PATIENT MEDICAL HISTORY SCREENING: Morbid [...] Diabetes Father ??? Heart Disease Father no [place] ??? Depression Maternal Grandmother ??? Anxiety Disorder [...] procedures or operations in the perioperative and detention periods. Questions were answered. Covid Discussion: Because [...] or network. The patient will experience successfuland manager underwriting weight loss when these components along with bariatric surgery are followed. The patient has had the above discussions with multiple program team members including surgeon, canoe builder, bariatric nurse and mental health manager policy and the patient will continue to have these discussions through the perioperative program. The [facility] Bariatric Surgical Risk/Benefit Calculator has been used [...] Liquid Protein Diet: Yes for 2 Weeks Escalator Attendant: Yes Additional Testing: Yes GI: -EGD: Jasbir - 2 cm HH, Hill 3 defect, [...] GASTRECTOMY ??? LASIK SURGERY Bilateral 11/2016 ??? [place] Tooth Extraction Family History Problem Relation Name Age of Onset ??? Depression Mother ??? Anxiety Disorder Mother ??? Hypertension Father ??? Diabetes Father ??? Heart Disease Father no [place] ??? Depression Maternal Grandmother ??? Anxiety Disorder Maternal Grandmother agoraphobia ??? Diabetes Maternal Grandfather ??? Heart Disease Maternal Grandfather ??? Cancer - Breast Paternal Grandmother ??? Cancer - Breast Other 2 maternal great aunts Social History Occupational History ??? 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 Comment: [employer], started 09/2015 Tobacco [...] bowel sounds Extremities: no cyanosis or edema LIABILITY CLAIMS MANAGER. Grossly non-focal Psychiatric: Does not appear anxious [...] CHLORIDE - 110* 104 103 CO2 - 20* 23 25 BUN - 25* 9 9 [...] Martell MD - 12/14/2022 11:25 AM CDT [facility] Operative Report OPERATIVE REPORT PATIENT:Leit Soto MR#: [id number] ADMIT DATE: 12/14/2022 8:47 AM DATE OF [...] Laparoscopic sleeve gastrectomy SURGEON: Anthony Martell MD Substance Abuse Technician: Sahci AJ ANESTHESIA: General endotracheal. PROCEDURE: The patient [...] OF CARE Routine 12/14/2022 11:02 PM CDT OK LAP SLEEVE GASTRECTOMY 12/14/2022 10:53 AM CDT [...] - 35.9 gm/dL 2022 5:33 AM CDT [facility] Platelet Count 267 153 - 416 x10E9/L 2022 5:33 AM CDT [facility] RDW-CV 12.1 12.1 - 14.9 % 2022 5:33 AM CDT [facility] MPV 10.3 9.4 - 12.9 fl 2022 5:33 AM CDT [facility] Neutrophils % 68.4 44.0 - 73.0 % 2022 5:33 AM CDT [facility] Lymphocytes % 22.7 20.0 - 43.0 % 2022 5:33 AM CDT [facility] Monocytes % 7.8 5.0 - 13.0 % 2022 5:33 AM CDT [facility] Eosinophils % 0.3 0.0 - 6.0 % 2022 5:33 AM CDT [facility] Basophils % 0.5 0.0 - 2.0 % 2022 5:33 AM CDT [facility] Immature Granulocytes 0.3 0 - 1 % 2022 5:33 AM CDT [facility] Neutrophil Absolute 7.28(H) 2.01 - 7.14 x10E9/L 2022 5:33 AM CDT [facility] Lymphocytes Absolute 2.42 1.07 - 3.94 x10E9/L 2022 5:33 AM CDT [facility] Monocytes Absolute 0.83 0.26 - 1.07 x10E9/L 2022 5:33 AM CDT [facility] Eosinophils Absolute 0.03 0 - 0.47 x10E9/L 2022 5:33 AM CDT [facility] Basophils Absolute 0.05 0 - 0.08 x10E9/L 2022 5:33 AM CDT [facility] Immature Granulocytes Absolute 0.03 0.00 - 0.06 x10E9/L 2022 5:33 AM CDT [facility] nRBC Auto 0 /100 WBC 2022 5:33 AM CDT [facility] Blood BLOOD SPECIMEN / Unknown Venipuncture / Unknown 2022 4:37 AM CDT 2022 5:16 AM CDT Anthony Martell MD LAB - HEMATOLOGY ORD ERABLES [facility] [address] [place] [address] * (ABNORMAL) BASIC METABOLIC PANEL (CALCIUM TOTAL) (2022 4:37 AM CDT) Pathologist [facility] Glucose 87 70 - 105 mg/dL 2022 5:44 AM CDT [facility] Sodium 138 136 - 145 mmol/L 2022 5:44 AM CDT [facility] Potassium 4.0 3.5 - 5.1 mmol/L 2022 5:44 AM CDT [facility] Chloride 107 98 - 107 mmol/L 2022 5:44 AM CDT [facility] CO2 23 23 - 31 mmol/L 2022 5:44 AM CDT [facility] Calcium 8.7 8.4 - 10.4 mg/dL 2022 5:44 AM CDT [facility] Anion Gap 8 8 - 18 mmol/L 2022 5:44 AM CDT [facility] BUN 8 7 - 18.7 mg/dL 2022 5:44 AM CDT [facility] Creatinine 0.56(L) 0.57 - 1.11 mg/dL 2022 5:44 AM CDT [facility] eGFR by CKD-EPI >90 >=90 mL/min/1.7 3 m2 2022 5:44 AM CDT [facility] Blood BLOOD SPECIMEN / Unknown Venipuncture / Unknown 2022 4:37 AM CDT 2022 5:16 AM CDT Anthony Martell MD LAB - CHEMISTRY ESPERANZA VELASCO Performing Organization Address [facility] de Phone Number [facility] [address] [place] [address] * (ABNORMAL) VITAMIN D 25-HYDROXY (2022 4:37 AM CDT) [facility] Vitamin D, 25 Hydroxy 29.6(L) 30 - 100 ng/mL 2022 5:58 AM CDT [facility] Blood BLOOD SPECIMEN / Unknown Venipuncture / Unknown 2022 4:37 AM CDT 2022 5:16 AM CDT Narrative [facility] - 2022 5:58 AM CDT Vitamin D Status: ?Deficiency ? <20 ? ng/mL ?Insufficiency ?? 20-30 ??ng/mL ?Sufficiency ? 30-100 ng/mL ?Toxicity ? >100 ?ng/mL Anthony Martell MD LAB - CHEMISTRY ESPERANZA VELASCO Performing Organization Address [facility] Co de Phone Number [facility] [address] [place] [address] * (ABNORMAL) GLUCOSE - POINT OF CARE (12/14/2022 11:02 PM CDT) [facility] Glucose WB/POC 122(H) 70 - 106 mg/dL 2022 12:31 AM CDT [facility] Specimen Type Cap Fingerstick 2022 12:31 AM CDT [facility] Blood BLOOD SPECIMEN / Unknown 12/14/2022 11:02 PM CDT 2022 12:31 AM CDT Anthony Martell MD LAB - POINT OF CARE ORDERABLES [facility] [address] [place], [place] [id number] * (ABNORMAL) GLUCOSE - POINT OF CARE (12/14/2022 9:21 AM CDT) [facility] Glucose WB/POC 68(L) 70 - 106 mg/dL 12/14/2022 10:10 AM CDT [facility] Specimen Type Venous 12/14/2022 10:10 AM CDT [facility] Blood BLOOD SPECIMEN / Unknown 12/14/2022 9:21 AM CDT 12/14/2022 10:10 AM CDT Anthony Martell MD LAB - POINT OF CARE ORDERABLES Performing Organization Address City/[facility]/ZIP Co de Phone Number [facility] [address] [place] [address] * POTASSIUM BLOOD (12/14/2022 9:16 AM CDT) [facility] Potassium 4.7 3.5 - 5.1 mmol/L 12/14/2022 9:46 AM CDT [facility] Blood BLOOD SPECIMEN / Unknown Venipuncture / Unknown 12/14/2022 9:16 AM CDT 12/14/2022 9:34 AM CDT Orly Hobbs DO LAB - CHEMISTRY ESPERANZA VELASCO [facility] [address] [place] [address] * HCG URINE QUALITATIVE (12/14/2022 9:15 AM CDT) [facility] hCG Qualitative Urine Negative Negative 12/14/2022 9:39 AM CDT [facility] Urine URINE / Unknown Collection / Unknown 12/14/2022 9:15 AM CDT 12/14/2022 9:35 AM CDT Orly Hobbs DO LAB - URINALYSIS ORD ERABLES [facility] [address] [place] [address] documented in this encounter Visit Diagnoses Diagnosis Morbid obesity due to excess calories (HCC)- Primary Preop testing Preoperative examination, unspecified Pre-op evaluation Preoperative examination, unspecified Morbid obesity due to excess calories (HCC) documented in this encounter Administered Medications Inactive Administered [...] 2022 12:58 AM CDT 150 m L/hr acetaminophen (Tylenol) solution 1,000 mg 1,000 mg, [...] Given 12/14/2022 2:37 PM CDT 1,000 mg acetaminophen (Tylenol) tablet 1,000 mg 1,000 mg, Oral, ONCE, 1 dose, On Mon12/14/22 at 0915, Patient preference for lesser PRN pain meds may be honored when the patient requests a less strong medication, a lower dose, or a less intrusive route of administration when the lesser drug, dose and route have been ordered for the patient. This patient request must be documented in the MAR., Pre-op $ Given 12/14/2022 9:14 AM CDT 1,000 mg buPROPion XL 24hr (Wellbutrin-XL) tablet 300 mg 300 mg, Oral, EVERY MORNING, First dose on Rebecca 12/15/22 at 0700, Until Discontinued, Do not crush, chew, or cut in half. $ Given 2022 6:45 AM CDT 300 mg celecoxib (CeleBREX) capsule 400 mg 400 mg, Oral, PRE-OP ONCE, 1 dose, On Mon12/14/22 at 0915, Patient preference for lesser PRN pain meds may be honored when the patient requests a less strong medication, a lower dose, or a less intrusive route of administration when the lesser drug, dose and route have been ordered for the patient. This patient request must be documented in the MAR., Pre-op $ Given 12/14/2022 9:14 AM CDT 400 mg dextrose 5 % 500 mL with [...] PM CDT 125 mL/hr 125 mL /hr famotidine (Pepcid) injection 20 mg 20 mg, Intravenous, PRE-OP ONCE, 1 dose, On Mon12/14/22 at 0915, Give morning of surgery. Dilute with 0.9% NaCl, D5W solution, or SWI to a volume of 5 to 10 mL and administer over at least 2 minutes., Pre-op $ Given 12/14/2022 9:14 AM CDT 20 mg fentaNYL (PF) (Sublimaze) injection 50 mcg 50 mcg, Intravenous, EVERY 10 MIN PRN, [...] must be documented in the MAR., PACU $ Given 12/14/2022 1:40 PM CDT 50 mcg $ Given 12/14/2022 1:02 PM CDT 50 mcg $ Given 12/14/2022 12:38 PM CDT 50 mcg FLUoxetine (PROzac) capsule 60 mg 60 mg, Oral, DAILY, First dose on Mon12/15/22 at 0900, Until Discontinued $ Given 2022 7:58 AM CDT 60 mg heparin injection 5,000 Units 5,000 Units, Subcutaneous, PRE-OP ONCE, 1 dose, On Mon12/14/22 at 0915, Pre-op $ Given 12/14/2022 9:14 AM CDT 5,000 Units Abdominal Tissue heparin injection 5,000 Units 5,000 Units, Subcutaneous, [...] Given 12/14/2022 9:02 PM CDT 15 mg lidocaine PF (Xylocaine MPF) 1 % injection 0.5 mL 0.5 mL, Infiltration, PRE-OP ONCE, 1 dose, On Mon12/14/22 at 0915, May be used (0.5 ml locally to anesthetize prior to insertion). For patients not allergic to local anesthetics., Pre-op $ Given 12/14/2022 9:15 AM CDT 0.5 mL magnesium hydroxide (Milk Of Magnesia) suspension 15 [...] Given 12/14/2022 2:36 PM CDT 40 mg prochlorperazine (Compazine) injection 5 mg 5 mg, Intravenous, POST-OP MULTIPLE, 2 doses, Starting on Mon12/14/22 at 1235, Until Mon12/14/22 at 1302, Second choice, use if first choice was ineffective., PACU $ Given 12/14/2022 1:02 PM CDT 5 mg $ Given 12/14/2022 12:37 PM CDT 5 mg scopolamine (Transderm-Scop) 1 patch 1 patch, Administer over 72 Hours, PRE-OP [...] 1 mg of scopolamine over 72 hours. $ Applied 12/14/2022 9:14 AM CDT 1 patch Behind Right Ear simethicone (Mylicon) drops 80 mg 80 mg, Oral, 4 TIMES DAILY AFTER MEALS AND AT BEDTIME, First dose on Mon12/14/22 at 1600, Until Discontinued, Shake well before using. $ Given 12/14/2022 8:52 PM CDT 80 mg $ Given 12/14/2022 4:19 PM CDT 80 mg simethicone (Mylicon) drops 80 mg 80 [...] must be documented in the MAR., Pre-op 0914 ($ Given - Provider: Velia [...] Indication for anti-infective therapy: Surgical prophylaxis, Pre-op 1057 ($ Given - Provider: Ana Culver, SPORTS BOOK BOARD ATTENDANT-BUILDING CONTRACTOR) celecoxib (CeleBREX) capsule 400 mg (COMPLETED) 400 [...] must be documented in the MAR., Pre-op 09 ($ Given - Provider: Velia [...] administer over at least 2 minutes., Pre-op 09 ($ Given - Provider: Velia Edmond RN) FLUoxetine (PROzac) capsule 60 mg 60 mg, Oral, DAILY, First dose on Mon12/15/22 at 0900, Until Discontinued 075 ($ Given - Provider: Roberta Wiggins) heparin [...] AIDE) 0643 ($ Given - Provider: Dora Cervantes RN)1322 ($ Given - Provider: Roberta Wiggins) lidocaine PF (Xylocaine MPF) 1 % injection 0.5 mL (COMPLETED) 0.5 mL, Infiltration, PRE-OP ONCE, 1 dose, On Mon12/14/22 at 0915, May be used (0.5 ml locally to anesthetize prior to insertion). For patients not allergic to local anesthetics., Pre-op 0915 ($ Given - Provider: Velia Edmond RN) magnesium hydroxide (Milk Of Magnesia) suspension 15 [...] Holman RN)2052 ($ Given - Provider: Dora Cervantes, AIDE)2347 ($ Given - Provider: Gabrielle Sage) 0643 [...] Aguirre, AIDE)1302 ($ Given - Provider: Viridiana Aguirre RN) scopolamine (Transderm-Scop) 1 patch(Linked Group 1) 1 [...] CONTINUOUS, Starting on Mon12/14/22 at 1330, Until Rebecca 12/15/22 at 1733, Do not infuse at same time as other fluids., Post-op 1441 ($ New Bag/Syringe - Provider: Juliet Holman RN) 0058 ($ New Bag/Syringe - Provider: Dora Cervantes, AIDE)0644 ($ New Bag/Syringe - Provider: Dora Cervantes RN)0801 (Rate Change - Provider: Roberta Wiggins) lactated ringers infusion (CANCELED) at 20 mL/hr, Intravenous, PRE-OP CONTINUOUS, Starting on Mon12/14/22 at 0915, Until Mon12/14/22 at 1416, Please place order for second bag of LR for all robotic surgeries, and all carotid endarterectomies., Pre-op 1057 ($ New Bag/Syringe - Provider: Ana Culver APRN-BUILDING CONTRACTOR)1157 ($ New Bag/Syringe - Provider: Ana Culver APRN-RENEE)1222 (Anesthesia Volume Adjustment - Provider: STACI Almonte) [...] Anthony Martell MD - Comment: to suction bacteriologist food for prn use) acetaminophen (Tylenol) solution 500 [...] Aguirre RN)1302 ($ Given - Provider: Viridiana Aguirre, AIDE)1340 ($ Given - Provider: Viridiana Aguirre RN) [...] 1437 ($ Given - Provider: Juliet Holman RN)2051 ($ Given - Provider: Dora Cervantes RN) 1046 ($ Given - Provider: Roberta Wiggins) simethicone (Mylicon) drops 80 mg 80 mg, Oral, 4 TIMES DAILY PRN, Gas Pain, Starting on Mon12/15/22 at 0745, Until Mon12/15/22 at 1733, Shake well before using. Linked [...] Pre-op documented in this encounter Care Teams Bolt Cutter Relationship Specialty Start Date End Date VinceCrystal grigsby [address] [place] [id number] PCP - General Nurse Practitioner 10/24/22 documented as of this encounter
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
--- OUTSIDE RECORDS SUMMARY | 2024-10-07 02:45 | XMS_ITS | Encounter Summary ---
Author Organization [facility] Address [address] [place] [address] Care Team Providers Care Flatwork Washer Name Role Phone Malena Munoz MD Primary Care Provider [phone] Reason for Visit * Reason Comments Follow-up follow up Encounter Details Date Type Department Care Team (Late st Contact Info) Description 11/12/2020 9:00 AM MULTIPLE DRUM SANDER HELPER Video Visit [facility] [id number] [place] [address], [facility] [address] [place] [address] Nydia Armas MD [facility] [address] [address] Morbid obesity due to excess calories (HCC) ; Anxiety and depression; Situational anxiety Social History [...] - Inhaled Oxygen Concentration - - Weight 100.7 kg (222 lb) 11/12/2020 8:17 AM MULTIPLE DRUM SANDER HELPER Height 167.6 cm (5' 6 ) 11/12/2020 8:17 AM MULTIPLE DRUM SANDER HELPER Body Mass Index 35.83 11/12/2020 8:17 AM MULTIPLE DRUM SANDER HELPER documented in this encounter Functional Status Functional [...] Progress Notes * Nydia Armas MD - 11/12/2020 9:02 AM CST Bariatric FollowUp VIRTUAL Visit This encounter is a live Audio-Video encounter Today's visit was conducted virtually due to COVID-19 countermeasures. The patient has given verbalconsent to have today's visit conducted by this same means with treatment provided remotely. The patient verbally consents to the billing and collection practices of the provider's medical group. Patient location: Home This encounter was performed using: audio and video Total time spent on visit on date of encounter is: 25 minutes with 20 minutes spent in medical discussion Chief Complaint: Obesity, severe: Other relevant medical problems: anxiety and depression. HPI: The patient is here for follow-up for medical wt loss. Adherence to plan is Poor as judged by the change in weight. Weight change since last visit: Current Weight (estimated by patient using home scale): 222 LB (60 Pounds of weight loss in 8 months.) Dietary and Exercise/Physical activity change from previous visit: Stressful couple of months with COVID infection, and another family member developing seizures. Patient is still weighting and measuring but less logging logging with all the ongoing stress, but focusing on good habits, sensing hunger and satiety and increased activity on treadmill. Noticing that she is not emotionally eating . Uses protein shakes (3x per week), Review of Systems: Changes in medical history since prior visit: none. No light headedness, dizziness or excessive fatigue. No chest pain, irregular hear beats or leg swelling No abdominal cramps, no diarrhea, no constipation No leg cramps, calf pain, ulcers or cold extremities. No mood change, unusual feelings of anxiety, depression or irritability No change in sleeping habits. OBJECTIVE: Ht 5' 6 (1.676 m) Wt 222 lb (100.7 kg) BMI 35.83 kg/m5Jgjebs: 5' 6 (167.6 cm) Body mass index is 35.83 kg/m??. Estimated Creatinine Clearance: 148.4 mL/min (based on SCr of 0.67mg/dL). Wt Readings from Last 3 Encounters: 11/12/20 222 lb (100.7 kg) 09/10/20 225 lb (102.1 kg) 07/02/20 236 lb 3.2 oz (107.1 kg) BP Readings from Last 3 Encounters: 05/11/19 138/70 04/04/19 110/70 02/12/19 128/64 Physical exam: N/A Virtual visit This encounter is a live Audio-Video encounter Reviewed glucose log: none Labs/studies reviewed: Reviewed and d/w patient. Allergies Allergen Reactions ??? Tramadol Other Shaky, increased heart rate, sweating. ??? Penicillins Rash Social History Smoking status: Never Smoker Smokeless tobacco: Never Used Alcohol use: No Drug use: No Sexual activity: Yes Partners with: Male Family History Problem Relation Name Age of Onset ??? Depression Mother ??? Anxiety Disorder Mother ??? Hypertension Father ??? Diabetes Father ??? Heart Disease Father no [place] ??? Depression Maternal Grandmother ??? Anxiety Disorder [...] No current facility-administered medications for this visit. Impression/Plan: Obesity Class severe: - Excellent progress with 60 Pounds of weight loss in 8 months. I d/w the patient establishing another weight goal of 190 lb over the coming 6 months. Caloric calculations suggests accurately prepared 1200 charity/d meal plan continues to be the recommended calorie plan. Patient agreeable. ICD-10-CM 1. Morbid obesity due to excess calories E66.01 2. Anxiety and depression F41.9 F32.9 3. Situational anxiety F41.8 - Continue current meds. - Continue Food journal. - encouraged to maintain physical activity to 15-30 minutes of walking or equivalent activity 4-5 days of the weeks with self-monitoring. - Avoidance of unhealthy snacking is highlighted. Pharmaceutical interventions: ___x__ No weight loss medications is recommended at this time. Appetite suppressants may be considered later depending on progress and patient's response tocalorie restriction Continue Phentermine (37.5 mg/d). Side effects discussed with the patient. - Side effects discussed and patients questions answered. - The patient is agreeable. Plan for ongoing weight management (marked with X): Watch Repairer care is recommended. ___x__ The patient received detailed Menu plan for the recommended daily calories intake (1200 calories/day). ___x__ Meal Replacement Products (2-3 protein shakes) [...] Diet plan was provided to the patient. ___x__ Follow up with Dr. Armas, in 6 weeks. >>>>>>>>>>>>>>>> This encounter is a live Audio-Video encounter This encounter with the patient lasted over 25 min, more than 50% of the time was in direct [id number]-[id number]-[id number] counseling with the patient regarding increased physical activity, reduced caloric intake, healthy diet and behavioral modifications. Nydia Armas MD 11/12/2020 IPLE DRUM SANDER HELPER documented in this encounter Plan of Treatment Not on file documented as of this encounter Visit Diagnoses Diagnosis Morbid obesity due to excess calories (HCC)- Primary Anxiety and depression Dysthymic disorder Situational anxiety Other anxiety states documented in this encounter Care Teams Flatwork Washer Relationship Specialty [place] [address] [address] PCP - General 07/17/19 01/22/21 documented as of this encounter
--- OUTSIDE RECORDS SUMMARY | 2024-10-07 02:45 | XMS_ITS | Encounter Summary ---
Author Organization [facility] Health Address [address] [facility] [place] [address] Care Team Providers Care Radiology Assistant Name Role Phone Crystal Cedeno Primary Care Provider [phone] Reason for Visit * Reason Onset Date Comments Update 11/25/2022 Encounter Details Date Type Department Care Team (Late Contact Info) Description 11/25/2022 Telephone [facility] [id number] [place] [id number] [place] [address] [address] Update Social History Tobacco Use Types Packs/Day Years [...] encounter Miscellaneous Notes * Telephone Encounter - Chet Carbajal - 11/25/2022 10:32 AM CST Faxed DOS update to [facility] at [phone]. Updated DOS to 12-14-22. Fax confirmation received. [facility] documented in this encounter Plan of Treatment Not on file documented as of this encounter Visit Diagnoses Not on filedocumented in this encounter Care Teams Radiology Assistant Relationship Specialty Start Date End Date Crystal Cedeno [address] [place] [address] PCP - General Nurse Practitioner 10/24/22 documented as of this encounter
--- OUTSIDE RECORDS SUMMARY | 2024-10-07 02:45 | XMS_ITS | Encounter Summary ---
Author Organization [facility] Address [address] [place] [address] Care Team Providers Care Hotel Maid Name Role Phone Malena Munoz MD Primary Care Provider [phone] Reason for Visit * Reason Comments Imm Inj Encounter Details Date Type Department Care Team (Late st Contact Info) Description 07/18/2019 4:40 PM CDT Office Visit [facility] AT [address] [phone] Need for vaccination (Primary Dx) Social History Tobacco Use Types Packs/Day Years [...] this encounter Patient Instructions * Patient Instructions* Bekah Valero - 07/18/2019 4:54 PM CDT Patient Education Flu Vaccine in Adults WHAT YOU NEED TO KNOW: What is the influenza vaccine? The flu, or influenza, vaccine is an injection given to help prevent influenza (flu). The flu is caused by a virus. The virus spreads from person to person through coughing and sneezing. Several types of viruses cause the flu. The viruses foreign exchange trader time, so new vaccines are made each year. The vaccine begins to protect you about 2 weeks after you get it. The flu vaccine is usually injected into the upper arm. It may be given in your thigh. The vaccine is offered every year starting in early fall. Get the vaccine every year as soon as it is available. Who should not get the flu vaccine or should wait to get it? ?? Anyone who has had an allergic reaction to the flu vaccine ?? Anyone who received a diagnosis of Guillain-Dover?? syndrome within 6 weeks of getting a flu vaccine ?? Anyone who has a fever of 101??F (38.3 ??C) or higher will need to wait until he or she is well What do I need to know about the flu vaccine and egg allergies? The flu vaccine may contain a smallamount of egg protein. The amount is so low that it is not likely to cause an allergic reaction. Tell your healthcare provider if you have an egg allergy before you get the flu vaccine. Egg-free vaccines may be available, but do not delay getting a flu vaccine to wait for it. What are the risks of the flu vaccine? The flu vaccine may cause mild symptoms, such as a fever, headache, and muscle aches. It may also cause mild to moderate soreness or redness at the area where you were given the injection. You may still get the flu after you receive the vaccine. You may have an allergic reaction to the vaccine. This can be life-threatening. Call your local emergency number (911 in the [place]) if: ?? Your mouth and throat are swollen. ?? You are wheezing or have trouble breathing. ?? You have chest pain or your heart is beating faster than normal for you. ?? You feel like you are going to faint. When should I call my doctor? ?? Your face is red or swollen. ?? You have hives that spread over your body. ?? You feel weak or dizzy. ?? You have increased pain, redness, or swelling around the area where the shot was given. ?? You have questions or concerns about the influenza vaccine. CARE AGREEMENT: You have the right to help plan your care. Learn about your health condition and how it may be treated. Discuss treatment options with your healthcare providers to decide what care you want to receive. You always have the right to refuse treatment. The above information is an educational psychology professor only. It is not intended as medical advice for individual conditions or treatments. Talk to your doctor, nurse or pharmacist before following any medical regimen to see if it is safe and effective for you. ?? Copyright [employer] 2019 Information is for End User's use only and may not be sold, redistributed or otherwise used for commercial purposes. All illustrations and images included in CareNotes?? are the copyrighted property of [employer] or [employer] documented in this encounter Progress Notes * Bekah Valero - 07/18/2019 4:54 PM CDT Leti Soto is a .28 year old .female patient, here for: Chief Complaint Patient presents with ??? Imm Inj Orders Placed This Encounter ??? FLU VACCINE QUAD IIV4 SPLIT PF IM Patient tolerated without difficulty. Hemostasis achieved, and sterile band-aid placed. Immunization questionnaire scanned into the medical record. -Advised patient to keep a record of all vaccinations. (may use [facility] MyChart if desired) -May take Tylenol (acetaminophen) as needed for aches/pains per package directions. -If you develop redness, swelling at the injection site; it should resolve on its own within 5-7 days of injection. Use warm compresses as needed to the site. -Return to clinic for an evaluation if needed. -Current CDC VIS Handout given Follow-up with your Blair-Waqas Munoz MD as directed. If no PCP listed, referral offered. .Bekah Valero 07/18/2019 4:54 PM documented in this encounter Plan of Treatment Not on file documented as of this encounter Visit Diagnoses Diagnosis Need for vaccination- Primary Need for prophylactic vaccination and inoculation against unspecified single disease documented in this encounter Care Teams Hotel Maid Relationship Specialty [place] [address] [address] [address] PCP - General 07/17/19 01/22/21 documented as of this encounter
--- OUTSIDE RECORDS SUMMARY | 2024-10-07 02:45 | XMS_ITS | Encounter Summary ---
Author Organization [facility] Address [address] [place] [address] Care Team Providers Care Account Resolution Analyst Name Role Phone Malena Munoz MD Primary Care Provider [phone] Reason for Visit * Reason Comments Follow-up follow up Encounter Details Date Type Department Care Team (Late Contact Info) Description 05/14/2020 8:00 AM CDT Video Visit [facility] Management Services [id number] [place] [address], [facility] [address] [place] [address] Nydia Armas MD [facility]0 [facility] [address] [address] Morbid obesity due to excess [...] - Inhaled Oxygen Concentration - - Weight 115.2 kg (254 lb) 05/14/2020 7:49 AM CDT Height 167.6 cm (5' 6 ) 05/14/2020 7:49 AM CDT Body Mass Index 41 05/14/2020 7:49 AM CDT documented in this encounter Functional [...] Progress Notes * Nydia Armas MD - 05/14/2020 8:05 AM CDT Bariatric FollowUp VIRTUAL Visit This encounter is [...] date of encounter is: 25 minutes with 15 minutes spent in medical discussion Chief Complaint: Obesity, severe: Other relevant medical problems: depression HPI: The patient is here for follow-up for medical wt loss. Adherence to plan is Good. Dietary and Exercise/Physical activity change from previous visit: Strictly consuming 1200 charity, daily workout video. One day off the plan but was very well controlled. Feels good and excited about her success. Keep food and workout log. Tracks also her mood, and generally feels good. Early time of hunger have dissipated . Weight change since last visit: Current Weight (estimated by patient using home scale): 30 LB Review of Systems: Changes in medical history [...] OBJECTIVE: Ht 5' 6 (1.676 m) Wt 254 lb (115.2 kg) BMI 41 kg/d5Pymgxa: 5' 6 (167.6 cm) Body mass index is 41 kg/m??. CrCl cannot be calculated (Patient's most recent lab result is older than the maximum 15 days allowed.). Wt Readings from Last 3 Encounters: 05/14/20 254 lb (115.2 kg) 03/17/20 282 lb (127.9 kg) 05/07/19 (!) 330 lb (149.7 kg) BP Readings from Last 3 Encounters: 05/11/19 138/70 04/04/19 110/70 02/12/19 128/64 Physical exam: N/A Virtual visit This encounter is a live Audio-Video encounter Reviewed glucose log: none Labs/studies reviewed: Not applicable Allergies Allergen Reactions ??? Tramadol Other Shaky, increased heart rate, sweating. ??? Penicillins Rash Social History Smoking status: Never Smoker Smokeless tobacco: Never Used Alcohol use: No Drug use: No Sexual activity: Yes Partners with: Male Family History Problem Relation Name Age of Onset ??? Depression Mother ??? Anxiety Disorder Mother ??? Hypertension Father ??? Diabetes Father ??? Heart Disease Father no [place] ??? Depression Maternal Grandmother ??? Anxiety Disorder [...] visit. Impression/Plan: Obesity Class severe: - Excellent progress. The patient lost 30 pounds but more importantly she appears to have great understanding of the process and the importance of thoughtful evaluation of behavior, isolating emotional eating and identifying true sense of hunger. I advised her to review the behavioral modification d ocument and continue adding good behaviors to the many she acquired. ICD-10-CM 1. Morbid obesity due to excess calories E66.01 2. Low back pain radiating to left lower extremity M54.5 M79.605 - Continue current meds. - Continue Food journal. - encouraged to maintain at least physical activity to 20-30 minutes of walking or equivalent activity 4-5 [...] for ongoing weight management (marked with X): Care Transition Mgr care is recommended. ___x__ The patient received detailed Menu plan for the recommended daily calories intake (1200 calories/day). Meal Replacement Products (2-3 protein shakes) per day as part of the recommended diet A simplified calorie control option as detailed in the after visit summary is recommended if full [...] 50% of the time was in direct mozx-ny-eyeu counseling with the patient regarding increased physical activity, reduced caloric intake, healthy diet and behavioral modifications. Nydia Armas MD 05/14/2020 documented in this encounter Plan of Treatment Not on file documented as of this encounter Visit Diagnoses Diagnosis Morbid obesity due to excess calories (HCC)- Primary Low back pain radiating to left lower extremity documented in this encounter Care Teams Account Resolution Analyst Relationship Specialty Start [place] [address] [place] [address] PCP - General 07/17/19 01/22/21 documented as of this encounter
--- OUTSIDE RECORDS SUMMARY | 2024-10-07 02:45 | XMS_ITS | Encounter Summary ---
Author Organization [facility] Address [address] [place] [address] Care Team Providers Care Mat Machine Operator Name Role Phone Crystal Cedeno Primary Care Provider [phone] Reason for Visit * Auth/Cert (Routine) Specialty Diagnoses / Procedures Referred By Contac t Referred To Contact Procedures ESOPHAGOGASTRODUODENOSCOPY (EGD) DIAGNOSTIC Referral ID Status Reason Start Date Expiration Date Visits Re quested Visits Authorized [id number] 1 1 Encounter Details Date Type Department Care Team (Late st Contact Info) Description 11/17/2022 7:16 AM CHARGE GANG WEIGHER Anesthesia Event Formerly [facility] [id number] [place] [address] Melvin Bhardwaj MD [address] [place] [address] [address] [place] [address] Slim Christopher MD [address] [place] [address] Anesthesia Record Procedure Summary Procedure Name Responsible Anesthesiologist Anesthesia Start Time Anesthesia Stop Time ESOPHAGOGASTRODUODENOSCOPY ( EGD) DIAGNOSTIC Melvin Bhardwaj MD 11/17/22 0716 11/17/22 0733 Events Date Time Event Comment 11/17/2022 0654 0716 An Start 0716 Out OR Start Data 0720 PT Reassessment 0720 Electnc Sig This record is electronically signed by the providers listed under staff. 0723 Timeout Anesthesia part icipated in timeout at the time documented in the record by nursing. 0732 Out OR Stop Data 0733 An Stop Meds Name Total lidocaine 1% (PF) injection (50 mg/5mL) 100 mg propofol (DIPRIVAN) injection 10mg/ml (E NDO USE) 15 mL 0.9% NaCl infusion 200 mL * Agents Name Exp. N2O O2 * Blood No blood administrations on file. Lines, Drains, and Airways Type Details Placement Removal Peripheral IV Date: 11/17/22; Time : 704; Orientation: Right; Placed By: AIDE Davis; Tolerance: Well 11/17/22 0705 by Norma Lerma RN 11/17/22 0815 by Cassandra Sotelo RN documented in this encounter Social History [...] suspected to have Coronavirus/COVID-19? No / Unsure 10/21/2022 10:02 AM CHARGE GANG WEIGHER documented as of this encounter Functional Status [...] as of this encounter Progress Notes * Jose Baird, AUDIO RECORDING ENGINEER-EQUINE INTERN - 11/17/2022 7:38 AM CST ANESTHESIA POSTOP EVALUATION NOTE Procedure: ESOPHAGOGASTRODUODENOSCOPY (EGD) DIAGNOSTIC Leti Soto is a 31 year old female Patient Vitals for the past 6 hrs: BP Temp Pulse Resp SpO2 11/17/22 0700 149/78 98.3 ??F (36.8 ??C) 77 19 99 % 11/17/22 0720 144/83 -- -- -- -- 11/17/22 0722 -- -- -- -- 99 % 11/17/22 0726 122/87 -- -- -- -- 11/17/22 0727 -- -- -- -- 100 % 11/17/22 0730 -- -- -- -- 100 % 11/17/22 0731 126/83 -- -- -- -- 11/17/22 0737 -- 98.6 ??F (37 ??C) 79 19 100 % Anesthesia Type: MAC * No Diagnosis Codes entered * Mental Status: awake, sufficiently recovered from acute administration of anesthesia to participatein the evaluation, alert and oriented Neuro Status: No numbess, tingling or visual disturbances Respiratory Function: natural Cardiac Function: stable Postop Pain: adequate Postop Hydration: adequate Postop Nausea: none Assessment: no apparent anesthetic complications, patient tolerated procedure well and no evidence of recall Patient Disposition: Release from Anesthesia Care NOTABLE EVENTS: No notable events documented. GE GANG WEIGHER * Slim Christopher MD - 11/17/2022 6:52 AM CST ANESTHESIA PREOPERATIVE EVALUATION NOTE Procedure: ESOPHAGOGASTRODUODENOSCOPY (EGD) DIAGNOSTIC Vitals: No data found. LMP: Patient's last menstrual period was 08/06/2018. OB Status: Recent ANESTHESIA PRE-EVALUATION NOTE The patient is a current non-smoker. Physical Exam: Orientation X3 Airway/Mallampati Score: II Mouth Opening Distance: 3 fingerwidths Neck ROM: full TM Distance: > 3 FB Teeth: normal Heart: regular rate rhythm Lungs: normal Abdomen Exam: obese Review of Systems: History of anesthetic complications: No Sleep Apnea Risk: No Malignant Hyperthermia: No GERD: No Poor Exercise Tolerance: No Recent Chest Pain: No Shortness of Breath: No ANESTHESIA PLAN ASA Score: 3 NPO Status: No solids since midnight Anesthesia Plan: MAC Planned Induction: intravenous Planned Postop Destination: endo Anesthetic plan was discussed with: patient Anesthetic Plan discussion was: Consented BMI, Height, Weight Tobacco History Estimated body mass index is 54.81 kg/m?? as calculated from the following: Height as of 10/21/22: 1.676 m (5' 6 ). Weight as of 10/21/22: 154 kg (339 lb 9.6 oz). Social History Tobacco Use Smoking Status Never Smokeless Tobacco Never Alcohol History Drug History Social History Substance and Sexual Activity Alcohol Use No ??? Alcohol/week: 0.0 standard drinks Social History Substance and Sexual Activity Drug Use No Outpatient Medications: Inpatient Medications: No outpatient medications have been marked as taking for the 11/17/22 encounter (Hospital Encounter). Current Facility-Administered Medications Medication Dose Last Admin ??? 0.9% NaCl IV ??? 0.9% NaCl 3 mL Allergies: Allergies Allergen Reactions ??? Tramadol Other [...] ??? Morbid obesity due to excess calories (CMS/HCC) 01/12/2016 Priority: Not Prioritized ??? BMI 40.0-44.9, adult (CMS/HCC) 01/12/2016 Priority: Not Prioritized Medical History: Past Medical History: Diagnosis Date ??? BMI 50.0-59.9, adult (CMS/HCC) ??? NEGATIVE PAST MEDICAL HISTORY - SEE PROBLEM LIST Surgical History: Past Surgical History: Procedure Laterality Date ??? Cholecystectomy, Laparoscopic 2008 ??? LASIK SURGERY Bilateral 11/2016 ??? 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 Recent OB History Para Term AB Living 1 [...] 9 Apgar5: 9 Covid Vaccine: Lab Results: No results found for requested labs within last 120 days. No results found for requested labs within last 120 days. GE GANG WEIGHER documented in this encounter Miscellaneous Notes * Anesthesia Transfer of Care - Jose Baird, KEVIN-EQUINE INTERN - 11/17/2022 7:33 AM CST ANESTHESIA TRANSFER OF CARE NOTE Today's Date: 11/17/2022 Date of : 1990 Patient: Leti Soto Procedure(s): ESOPHAGOGASTRODUODENOSCOPY (EGD) DIAGNOSTIC Surgeon(s): Primary: Anthony Martell MD Preop Diagnosis: * No Diagnosis Codes entered * Pre-op Meds (From admission, onward) Start Stop Status Route Frequency Ordered 11/17/22 0700 0.9% NaCl infusion 11/17 0659 Dispensed IV CONTINUOUS 11/17/22 0646 11/17/22 0646 0.9% NaCl injection 3 mL 11/17 0645 Dispensed IK PRE-PROCEDURE MULTIPLE 11/17/22 0646 * No Diagnosis Codes entered * . Allergies Allergen Reactions ??? Tramadol Other Shaky, increased heart rate, sweating. ??? Penicillins Rash Vitals: Patient Vitals for the past 3 hrs: BP Temp Pulse Resp SpO2 11/17/22 0731 126/83 -- -- -- -- 11/17/22 0730 -- -- -- -- 100 % 11/17/22 0727 -- -- -- -- 100 % 11/17/22 0726 122/87 -- -- -- -- 11/17/22 0722 -- -- -- -- 99 % 11/17/22 0720 144/83 -- -- -- -- 11/17/22 0700 149/78 98.3 ??F (36.8 ??C) 77 19 99 % Lines, Drains, and Airways Type Details Placement Removal Peripheral IV Date: 11/17/22; Time: 704; Orientation: Right; Location: Hand; Placed By: AIDE Davis;Gauge: 22 Gauge ; Locals: None; Tolerance: Well 11/17/22704 by Norma Lerma RN Intraprocedure I/O Totals Intake propofol (DIPRIVAN) injection 10mg/ml (ENDO USE) 15.00 mL 0.9% NaCl infusion 200.00 mL Total Intake 215 mL Patient Transfer Location: Endo Recovery Transport Airway: spontaneous respirations Complications: None Handoff Given? Yes Checklist or [...] of report from the receiving PACUteam. STACI Campos GE GANG WEIGHER documented in this encounter Plan of Treatment Not on file documented as of this encounter Visit Diagnoses Not on filedocumented in this encounter Administered Medications Inactive Administered Medications - up to 3 most recent administrations Medication Order MAR Action Action Date Dose Rate Site 0.9% NaCl infusion at 20 mL/hr, Intravenous, CONTINUOUS, Starting on Rebecca 11/17/22 at 0700, Until Rebecca 11/17/22 at 0918, Pre-procedure (GI) $ New Bag/Syringe 11/17/2022 7:10 AM CHARGE GANG WEIGHER lidocaine PF (Xylocaine MPF) 1 % injection Intravenous, PRN, Starting on Rebecca 11/17/22 at 0724, Until Rebecca 11/17/22 at 0734, Anesthesia Intra-op $ Given 11/17/2022 7:24 AM CHARGE GANG WEIGHER 100 mg propofol (Diprivan) injection Intravenous, CONTINUOUS PRN, Starting on Rebecca 11/17/22 at 0724, Until Rebecca 11/17/22 at 0734, Anesthesia Intra-op $ New Bag/Syringe 11/17/2022 7:24 AM CHARGE GANG WEIGHER documented in this encounter Care Teams Mat Machine Operator Relationship Specialty Start Date End Date PaoCrystal [address] [place], [place] [id number] PCP - General Nurse Practitioner 10/24/22 documented as of this encounter
--- OUTSIDE RECORDS SUMMARY | 2024-10-07 02:45 | XMS_ITS | Encounter Summary ---
Author Organization [facility] Address [address] [facility] [place] [address] Care Team Providers Care Long Chain Quiller Tender Name Role Phone Miladis Sosa PA-C Primary Care Provider [phone] Reason for Referral * Radiology Services (Routine) - Closed Specialty Diagnoses / Procedures Referred By Deshawn t Referred To Contact Diagnoses Morbid obesity due to excess calories (HCC) Preop testing BMI 50.0-59.9, adult (HCC) Procedures [place] [address] [place] [address] Referral ID Status Reason Start Date Expiration Date Visits Re quested Visits Authorized [id number] Closed 10/21/2022 10/21/2023 1 1 ORATE OPERATIONS COMPLIANCE MANAGER * Procedure (Routine) - Closed Specialty Diagnoses / Procedures Referred By Deshawn chávez Referred To Contact Diagnoses Morbid obesity due to excess calories (HCC) Preop testing BMI 50.0-59.9, adult (HCC) Procedures EGD MT ED EGD FLEX TRANSORAL DX MT EGD FLEX TRANSORAL [place] [address] [place] [address] [place] [address] [place] [address] Referral ID Status Reason Start Date Expiration Date Visits Re quested Visits Authorized [id number] Closed 10/21/2022 10/21/2023 1 1 ORATE OPERATIONS COMPLIANCE MANAGER Encounter Details Date Type Department Care Team (Late st Contact Info) Description 10/21/2022 11:20 AM CORPORATE OPERATIONS COMPLIANCE MANAGER Office Visit [facility] Weight Management Services [address] [place] [address] [place] [address] [address] [place] [phone] Morbid obesity due to excess calories (HCC) (Primary Dx); Preop testing; BMI 50.0-59.9, adult (HCC) Social History Tobacco Use Types Packs/Day [...] Coronavirus/COVID-19? No / Unsure 10/21/2022 10:02 AM CORPORATE OPERATIONS COMPLIANCE MANAGER documented as of this encounter Last Filed Vital Signs Vital Sign Reading Time Taken Comments Blood Pressure 132/8 10/21/2022 10:57 AM CORPORATE OPERATIONS COMPLIANCE MANAGER Pulse 76 10/21/2022 10:57 AM CORPORATE OPERATIONS COMPLIANCE MANAGER Temperature 36.6 ??C (97.9 ??F) 10/21/2022 10:[address] Respiratory Rate 18 10/21/2022 10:57 AM CORPORATE OPERATIONS COMPLIANCE MANAGER Oxygen Saturation 99% 10/21/2022 10:57 AM CORPORATE OPERATIONS COMPLIANCE MANAGER Inhaled Oxygen Concentration - - Weight 154 kg (339 lb 9.6 oz) 10/21/2022 10:57 A M CORPORATE OPERATIONS COMPLIANCE MANAGER Height 167.6 cm (5' 6 ) 10/21/2022 10:57 AM CORPORATE OPERATIONS COMPLIANCE MANAGER Body Mass Index 54.81 10/21/2022 10:57 AM CORPORATE OPERATIONS COMPLIANCE MANAGER documented in this encounter Functional Status Functional [...] as of this encounter Progress Notes * Anthony Martell MD - 10/21/2022 11:20 AM CST BARIATRIC EVALUATION HISTORY & PHYSICAL Height: 167.6 cm (5' 6 ) Weight: (!) 154 kg (339 lb 9.6 oz) BMI (Calculated): 54.84 Chief Complaint: Morbid Obesity HPI: Pt is a 31 year old year old female with a hx of morbid obesity who presents for surgical tx. Pt has attempted multiple weight loss regimens in the past including medical, exercise and dietary without residential success. Pt has now attained a BMI (Calculated): 54.84 and has failed multiple non surgical weight loss regimens for >5yrs. BMI: Body mass index is 54.81 kg/m??. Geff body weight: 59.3 kg (130 lb 11.7 oz) Adjusted ideal body weight: 97.2 kg (214 lb 4.5 oz) Medical: currently on phentermine from pcp - few lb weight loss in last month, nothing significant Has been on qsymia/phentermine, has seen dr prince -wt 222 in 2020 and now 339 -heaviest 480 lbs Review of previous provider notes in [facility]/Care Everywhere was performed on the day of service. Past Medical History: Diagnosis Date ??? BMI 50.0-59.9, adult (CMS/HCC) ??? NEGATIVE PAST MEDICAL HISTORY - SEE PROBLEM LIST Past Surgical History: Procedure Laterality Date ??? Cholecystectomy, Laparoscopic 2008 ??? LASIK SURGERY Bilateral 11/2016 ??? [place] [employer] PATIENT MEDICAL HISTORY SCREENING: Morbid [...] No Anesthetic Complications................. No Other................................................. none Current Outpatient Medications Medication ??? buPROPion XL 24hr (WELLBUTRIN-XL) 150 MG tablet ??? buPROPion XL 24hr (WELLBUTRIN-XL) 300 MG tablet ??? diphenhydrAMINE (BENADRYL) 25 MG capsule ??? docusate sodium (COLACE) 100 MG capsule ??? FLUoxetine (PROZAC) 20 MG capsule ??? omeprazole (PRILOSEC) 20 MG capsule ??? ondansetron, disintegrating, (ZOFRAN ODT) 4 MG tablet ??? phentermine (Ionamine) 30 MG capsule ??? Vit-Fe Fumarate-FA ( VITAMIN) 28-0.8 MG tablet ??? raNITIdine (ZANTAC) 150 MG capsule No current facility-administered medications for this visit. Allergies Allergen Reactions ??? Tramadol Other Shaky, [...] another person for any ADLs.. Physical Examination: BP (!) 132/8 (BP SITE: RIGHT ARM, BP POSITION: SITTING, BP CUFF SIZE: 12) Pulse 76 Temp 97.9 ??F (36.6 ??C) Resp 18 Ht 1.676 m (5' 6 ) Wt (!) 154 kg (339 lb 9.6 oz) SpO2 99% Constitutional: well-developed, well-nourished, and in no distress. [...] and affect normal. Recent Labs Component Name 11/04/20 0841 04/08/20 1317 03/22/17 1345 SODIUM 140 140 142 POTASSIUM 4.1 4.1 4.5 CHLORIDE 104 103 105 CO2 23 25 28 BUN 9 9 14 CREATININE 0.67 0.65 0.78 GLUCOSE 70 95 87 CALCIUM 8.9 9.0 8.9 Recent Labs Component Name 11/04/20 0842 04/08/20 1317 05/10/19 0500 WBC 3.5 6.0 11.0* HGB 11.9 12.1 8.9* HCT 34.3 36.0 27.7* PLTCOUNT 193 207 152* Risk / Benefits: Risks and benefits were [...] procedures or operations in the perioperative and continuous churn buttermaker periods. Questions were answered. Covid Discussion: Because [...] or network. The patient will experience successfuland continuous churn buttermaker weight loss when these components along with bariatric surgery are followed. The patient has had the above discussions with multiple program team members including surgeon, umbrella repairer, bariatric nurse and mental health gamewell operator and the patient will continue to have [...] bariatric surgery. Recommendation isfor: Laparoscopic Sleeve Gastrectomy Pre-op Plan: Liquid Protein Diet: Yes for 2 Weeks Tension Machine Operator: Yes Additional Testing: Yes GI: hx of morbid obesity with increased risk of silent heartburn and hiatal hernia -EGD: Schwoerer -UGI: ordered CV: hx of metabolic syndrome -pcp clearance for surgery Pulmonary: none Renal: none Endocrine: no diabetes [...] Yes -decrease from baseline as class, initial 339 Weight check at Class: Yes Comments: Hospitalist Consult: Yes Other Consults: No Schedule: any, poss robot Standard incision, 2S, no tovar, 2 day stay Anthony Martell MD 10/21/2022 ORATE OPERATIONS COMPLIANCE MANAGER documented in this encounter Plan of Treatment Not on file documented as of this encounter Results * EGD (11/17/2022 6:58 AM CORPORATE OPERATIONS COMPLIANCE MANAGER) Report Endoscopy POC __ _ Patient Name: Leti Soto ? Procedure Date: 11/17/2022 6:58 AM ? [...] Procedure Code(s): ? --- Professional --- ? 97984, Esophagogastroduode noscopy, flexible, transoral; with biopsy, ? single or multiple ? --- Technical --- ? 23549, Esophagogastroduode noscopy, flexible, transoral; with biopsy, ? [...] for other preprocedural examination CPT copyright 2019 [employer]. All rights reserved. The codes documented in this report are preliminary and upon cpc coder review may be revised to meet current compliance requirements. Anthony Martell _ Anthony Martell MD 11/17/2022 7:30:13 AM This report has been signed electronically. Number of Addenda: 0 Note Initiated On: 11/17/2022 6:58 AM [facility] 11/17/2022 6:58 AM CORPORATE OPERATIONS COMPLIANCE MANAGER Narrative Procedure Note Anthony Martell MD [...] Anthony Martell MD GI PROCEDURE ORDERAB LES [facility] [place] [address] * FL UGI SERIES (10/24/2022 10:42 AM CORPORATE OPERATIONS COMPLIANCE MANAGER) Anatomical Region Laterality Modality Abdomen Radiographic Laure ging 10/24/2022 11:5 2 AM CORPORATE OPERATIONS COMPLIANCE MANAGER Impressions 10/24/2022 11:54 AM CORPORATE OPERATIONS COMPLIANCE MANAGER IMPRESSION: Small sliding-type hiatal hernia with mild reflux. No inflammatory change identified within the distal esophagus. Irritability duodenal bulb. No discrete ulcer identified. > Interpreting Provider: Jordan Mcneil MD on 10/24/2022 11:54 AM Narrative 10/24/2022 11:54 AM CORPORATE OPERATIONS COMPLIANCE MANAGER PROCEDURE: ??FL UGI SERIES, DATE/TIME OF EXAM: ??10/24/2022 10:43 AM, LOCATION [facility] INDICATION: E66.01: Morbid (severe) obesity due to excess calories ([facility]/HCC) Z01.818: Encounter for other preprocedural examination Z68.43: Body mass index (BMI) 50.0-59.9, adult ([facility]) ADDITIONAL CLINICAL INFORMATION: Preoperative evaluation for bariatric surgery. COMPARISON: None. TECHNIQUE: Patient ingested effervescent crystals. Fluoroscopic spot and cine images were obtained during the procedure. ??Patient subsequently drank thick and thin barium in various positions. FINDINGS: Examination esophagus reveals a grossly normal mucosal pattern. No inflammatory change, stricture or diverticulum is appreciated. There is a sliding-type gastric hiatus hernia with mild reflux. Stomach is otherwise normal in size and appearance. No ulcer or inflammatory change. No outlet obstruction. There is irritability of the duodenal bulb which may be inflammatory. No focal ulcer identified. FLUOROSCOPY DOSE: ??202.36 mGy Reference air kerma (ka,r). 12 radiographic images were obtained. Procedure Note Jordan Mcneil MD - 10/24/2022 PROCEDURE: FL UGI SERIES, DATE/TIME OF EXAM: 10/24/2022 10:43 AM,LOCATION [facility] INDICATION: E66.01: Morbid (severe) obesity due to excess calories (CMS/HCC) Z01.818: Encounter for other preprocedural examination Z68.43: Body mass index (BMI) 50.0-59.9, adult (CMS/HCC) ADDITIONAL CLINICAL INFORMATION: Preoperative evaluation for bariatric surgery. COMPARISON: None. TECHNIQUE: Patient ingested effervescent crystals. Fluoroscopic spot and cineimages were obtained during the procedure. Patient subsequently drank thickand thin barium in various positions. FINDINGS: Examination esophagus reveals a grossly normal mucosal pattern. No inflammatory change, stricture or diverticulum is appreciated. There is a sliding-type gastric hiatus hernia with mild reflux. Stomachis otherwise normal in size and appearance. No ulcer or inflammatorychange. No outlet obstruction. There is irritability of the duodenal bulb which may be inflammatory. No focal ulcer identified. FLUOROSCOPY DOSE: 202.36 mGy Reference air kerma (ka,r). 12radiographic images were obtained. IMPRESSION: Small sliding-type hiatal hernia with mild reflux. No inflammatorychange identified within the distal esophagus. Irritability duodenal bulb. No discrete ulcer identified. > Interpreting Provider: Jordan Mcneil MD on 10/24/2022 11:54 AM Anthony Martell MD FLUOROSCOPY ORDERABL ES documented in this encounter Visit Diagnoses Diagnosis Morbid obesity due to excess calories (HCC)- Primary Preop testing Preoperative examination, unspecified BMI 50.0-59.9, adult (HCC) Body Mass Index 50.0-59.9, adult Morbid obesity due to excess calories (HCC) Preop testing Preoperative examination, unspecified BMI 50.0-59.9, adult (HCC) Body Mass Index 50.0-59.9, adult Preoperative examination- Primary Preoperative examination, unspecified Morbid obesity due to excess calories (HCC) Preop testing Preoperative examination, unspecified BMI 50.0-59.9, adult (HCC) Body Mass Index 50.0-59.9, adult Preop examination Preoperative examination, unspecified documented in this encounter Care Teams Long Chain Quiller Tender Relationship Specialty Start Date End Date Miladis Sosa PA-C [address] [place] [address] PCP - General Physician Channel Turner 02/26/21 10/23/22 documented as of this encounter
--- OUTSIDE RECORDS SUMMARY | 2024-10-07 02:45 | XMS_ITS | Encounter Summary ---
Author Organization [facility] Address [address] [place] [address] Care Team Providers Care Academic Records Specialist Name Role Phone Crystal Cedeno Primary Care Provider [phone] Reason for Visit * Reason Onset Date Comments Diet 12/30/2022 Encounter Details Date Type Department Care Team (Late st Contact Info) Description 12/30/2022 Telephone [facility] Weight Management Services [address] [place] [address], [address]/SHLOMO Diet Social History Tobacco Use Types Packs/Day [...] and heating? Not hard at all 12/14/2022 [facility] [place] of Occupat ional Health - Occupational Stress [...] In the last 10 days, have aleks miller been in contact with someone who was confirmed or suspected to have Coronavirus/COVID-19? No / Unsure 11/30/2022 11:41 AM STATION INSPECTOR documented as of this encounter Functional Status [...] encounter Miscellaneous Notes * Telephone Encounter - Dorys Samano RD/SHLOMO - 12/30/2022 2:19 PM CDT Pt sent email with questions about the Phase 2 diet. All questions answered at this time. documented in this encounter Plan of Treatment Not on file documented as of this encounter Visit Diagnoses Not on filedocumented in this encounter Care Teams Academic Records Specialist Relationship Specialty Start Date End Date VinceaurorasairaCrystal [address] [place] [address] PCP - General Nurse Practitioner 10/24/22 documented as of this encounter
--- OUTSIDE RECORDS SUMMARY | 2024-10-07 02:45 | XMS_ITS | Encounter Summary ---
Author Organization [facility] Address [address] [facility] [place] [address] Care Team Providers Care Completions Engineer Name Role Phone Crystal Cedeno Primary Care Provider [phone] Encounter Details Date Type Department Care Team (Late st Contact Info) Description 01/06/2023 Orders Only [facility] Weight Management Services [address] [place] [address] [address] [place] [address] Leti Hunt, REGULATORY LEADER-DOOR CLAMPER [address] [facility] [address] [place] [address] Social History Tobacco Use Types Packs/Day Years [...] and heating? Not hard at all 12/14/2022 [facility] [place] of Occupat ional Health - Occupational Stress [...] on filedocumented in this encounter Care Teams Completions Engineer Relationship Specialty Start Date End Date Crystal Cedeno [address] [place] [address] PCP - General Nurse Practitioner 10/24/22 documented as of this encounter
--- OUTSIDE RECORDS SUMMARY | 2024-10-07 02:45 | XMS_ITS | Encounter Summary ---
Author Organization [facility] Address [address] [facility] [place] [address] Care Team Providers Care Funeral Pre Arrangement Counselor Name Role Phone Miladis Sosa PA-C Primary Care Provider [phone] Encounter Details Date Type Department Care Team (Late st Contact Info) Description 09/21/2021 Orders Only [facility] [address] [place] [address] Mckayla Nova, FIRE COORDINATOR-BUSINESS DEVELOPMENT ENGINEER [address] [place] [address] Encounter for screening for COVID-19 Social History Tobacco Use Types Packs/Day Years [...] as of this encounter Visit Diagnoses Diagnosis Encounter for screening for COVID-19- Primary documented in this encounter Care Teams Funeral Pre Arrangement Counselor Relationship Specialty Start Date End Date Miladis Sosa, PAShayyC [address] [place] [address] PCP - General Physician Watershed Tender 02/26/21 10/23/22 documented as of this encounter
--- OUTSIDE RECORDS SUMMARY | 2024-10-07 02:45 | XMS_ITS | Encounter Summary ---
Author Organization [facility] Address [address] [place] [address] Care Team Providers Care Homicide Investigator Name Role Phone Malena Munoz MD Primary Care Provider [phone] Encounter Details Date Type Department Care Team (Late st Contact Info) Description 06/27/2020 Orders Only [facility] AT [address] [phone] Yarely Beauchamp, ONION FARMER-GYN [address] [place] [address] Sore throat Social History Tobacco Use Types Packs/Day Years [...] No 05/07/2019 Cognitive Status Response Date of Assess ent Does person have difficulty concentrating/remembering/making decisions? No 05/07/2019 documented as of this encounter Plan of Treatment Not on file documented as of this encounter Results * [facility] COVID LAB (ST) (06/29/2020 11:10 AM CDT) COVID-19 PCR Not detected Not detected 06/30/2020 6:30 AM CDT [facility] Microbiology SPECIMEN FROM NASOPHARYNGEAL STRUCTURE / Unknown Collection / Unknown 06/29/2020 11:10 AM CDT 06/29/2020 11:10 AM CDT Narrative [facility] - 06/30/2020 6:30 AM CDT This Real Time RT-PCR assay was developed and its performance characteristics determined by [facility]. This test has been authorized [...] assay are available upon request. Yarely Beauchamp ONION FARMER-GYN LAB - MICROBI OLOGY ORDERABLES [facility] [address] [place] [address], [facility] [phone] documented in this encounter Visit Diagnoses Diagnosis Sore throat- Primary Acute pharyngitis documented in this encounter Care Teams Homicide Investigator Relationship Specialty [place] [address] [place] [address] PCP - General 07/17/19 01/22/21 documented as of this encounter
--- OUTSIDE RECORDS SUMMARY | 2024-10-07 02:45 | XMS_ITS | Encounter Summary ---
Author Organization [facility] Address [address] [place] [address] Care Team Providers Care Care Giver Name Role Phone Crystal Cedeno Primary Care Provider [phone] Reason for Referral * Radiology Services (Routine) - Closed Specialty Diagnoses / Procedures Referred By Contac t Referred To Contact Diagnoses Morbid obesity due to excess calories (HCC) Preop testing BMI 50.0-59.9, adult (HCC) Procedures [place] [address] [place] [address] Referral ID Status Reason Start Date Expiration Date Visits Re quested Visits Authorized [id number] Closed 10/21/2022 10/21/2023 1 1 POINT PEN ASSEMBLY MACHINE OPERATOR Reason for Visit * Radiology Services (Routine) - Closed Specialty Diagnoses / Procedures Referred By Contac t Referred To Contact Diagnoses Morbid obesity due to excess calories (HCC) Preop testing BMI 50.0-59.9, adult (HCC) [place] [address] [place] [address] Referral ID Status Reason Start Date Expiration Date Visits Re quested Visits Authorized [id number] Closed 10/21/2022 10/21/2023 1 1 Encounter Details Date Type Department Care Team (Latest Contact Info) Description 10/24/2022 9:59 AM BALLPOINT PEN ASSEMBLY MACHINE OPERATOR - 10/24/2022 11:59 PM BALLPOINT PEN ASSEMBLY MACHINE OPERATOR Hospital Encounter [facility] Health Imaging Services - Radiology [address] [place] [address] [place] [address] [place] [phone] Discharge Disposition: Home or Self Care Social [...] Coronavirus/COVID-19? No / Unsure 10/21/2022 10:02 AM BALLPOINT PEN ASSEMBLY MACHINE OPERATOR documented as of this encounter Functional Status [...] on the tongue 20 tablet 04/04/2019 11/17/2022 phentermine (Ionamine) 30 MG capsule Take 1 (one) capsule by mouth once daily 09/30/2022 2022 Vit-Fe Fumarate-FA ( VITAMIN) 28-0.8 MG tablet Take 1 tablet by mouth once daily 11/17/2022 raNITIdine (ZANTAC) 150 MG capsule Take 150 mg by mouth once daily 11/17/2022 documented as of this encounter Plan of Treatment Not on file documented as of this encounter Procedures Procedure Name Priority Date/Time Associated Diagnosis Comments FL UGI SERIES Routine 10/24/2022 10:42 AM BALLPOINT PEN ASSEMBLY MACHINE OPERATOR Morbid obesity due to excess calories (HCC) Preop testing BMI 50.0-59.9, adult ([facility]) documented in this encounter Results * FL UGI SERIES (10/24/2022 10:42 AM BALLPOINT PEN ASSEMBLY MACHINE OPERATOR) Anatomical Region Laterality Modality Abdomen Radiographic Laure ging 10/24/2022 11:5 2 AM BALLPOINT PEN ASSEMBLY MACHINE OPERATOR Impressions 10/24/2022 11:54 AM BALLPOINT PEN ASSEMBLY MACHINE OPERATOR IMPRESSION: Small sliding-type hiatal hernia with mild reflux. No inflammatory change identified within the distal esophagus. Irritability duodenal bulb. No discrete ulcer identified. > Interpreting Provider: Jordan Mcneil MD on 10/24/2022 11:54 AM Narrative 10/24/2022 11:54 AM BALLPOINT PEN ASSEMBLY MACHINE OPERATOR PROCEDURE: ??FL UGI SERIES, DATE/TIME OF EXAM: ??10/24/2022 10:43 AM, LOCATION [facility] INDICATION: E66.01: Morbid (severe) obesity due to [...] SERIES, DATE/TIME OF EXAM: 10/24/2022 10:43 AM,LOCATION [facility] INDICATION: E66.01: Morbid (severe) obesity due to excess calories ([facility]) Z01.818: Encounter for other preprocedural examination Z68.43: Body mass index (BMI) 50.0-59.9, adult ([facility]/HCC) ADDITIONAL CLINICAL INFORMATION: Preoperative evaluation for bariatric [...] Diagnosis Morbid obesity due to excess calories (HCC) Preop testing Preoperative examination, unspecified BMI 50.0-59.9, adult (HCC) Body Mass Index 50.0-59.9, adult documented in this encounter Care Teams Care Giver Relationship Specialty Start Date End Date Crystal Cedeno [address] [place], [place] [phone] PCP - General Nurse Practitioner 10/24/22 documented as of this encounter
--- OUTSIDE RECORDS SUMMARY | 2024-10-07 02:45 | XMS_ITS | Encounter Summary ---
Author Organization [facility] Address [address] [facility] [place] [address] Care Team Providers Care Advanced Manufacturing Consultant Name Role Phone Crystal Cedeno Primary Care Provider [phone] Reason for Visit * Auth/Cert (Routine) Specialty Diagnoses / Procedures Referred By Contac t Referred To Contact Procedures ESOPHAGOGASTRODUODENOSCOPY (EGD) DIAGNOSTIC Referral ID Status Reason Start Date Expiration Date Visits Re quested Visits Authorized [id number] 1 1 Encounter Details Date Type Department Care Team (Latest Contact Info) Description 11/17/2022 7:40 AM CAMPGROUND ATTENDANT - 11/17/2022 8:00 AM CAMPGROUND ATTENDANT Surgery [facility] - Endoscopy Services [id number] [place] [address] [place] [address] [facility] [address] [place] [address] ESOPHAGOGASTRODUODENOSCOPY (EGD) DIAGNOSTIC Surgery Details Date/Time Status Location OR Service Patient Class Case Class Case Type Trauma Case? 11/17/2022 7:40 AM Posted [facility] ENDO 01 General Surgery Day Care Elective > 5 days Panel 1 Procedure LRB Anes Op Region Wound Class Comments ESOPHAGOGASTRODUODENOSCOPY ( EGD) DIAGNOSTIC N/A MAC Clean Contaminated Surgeon Surgeon Role Service Panel Anthony Martell MD Primary General 1 documented in this encounter Social History [...] Coronavirus/COVID-19? No / Unsure 10/21/2022 10:02 AM CAMPGROUND ATTENDANT documented as of this encounter Last Filed Vital Signs Vital Sign Reading Time Taken Comments Blood Pressure 142/85 11/17/2022 7:55 AM CAMPGROUND ATTENDANT Pulse 72 11/17/2022 7:55 AM CAMPGROUND ATTENDANT Temperature 37 ??C (98.6 ??F) 11/17/2022 7:37 AM CAMPGROUND ATTENDANT Respiratory Rate 19 11/17/2022 7:55 AM CAMPGROUND ATTENDANT Oxygen Saturation 99% 11/17/2022 7:55 AM CAMPGROUND ATTENDANT Inhaled Oxygen Concentration - - Weight 149.7 kg (330 lb) 11/17/2022 7:00 AM CAMPGROUND ATTENDANT Height 167.6 cm (5' 6 ) 11/17/2022 7:00 AM CAMPGROUND ATTENDANT Body Mass Index 53.26 11/17/2022 7:00 AM CAMPGROUND ATTENDANT documented in this encounter Functional Status Functional [...] (three) capsules by mouth once daily 03/05/2020 phentermine (Ionamine) 30 MG capsule Take 1 (one) capsule by mouth once daily 09/30/2022 2022 documented as of this encounter H&P Notes * Anthony Martell MD - 11/17/2022 6:49 AM [facility] ENDOSCOPY PRE-PROCEDURE MEDICAL HISTORY & PHYSICAL [place]i [place] 11/17/2022 There were no vitals taken for this visit. Past Medical History: Diagnosis Date ??? BMI 50.0-59.9, adult (CMS/HCC) ??? NEGATIVE PAST MEDICAL HISTORY - SEE PROBLEM LIST Past Surgical History: Procedure Laterality Date ??? Cholecystectomy, Laparoscopic 2008 ??? LASIK SURGERY Bilateral 11/2016 ??? [place] Tooth Extraction No current facility-administered medications on file prior to encounter. Current Outpatient Medications on File Prior to Encounter Medication Sig Dispense Refill ??? buPROPion XL [...] on the tongue 20 tablet 0 ??? phentermine (Ionamine) 30 MG capsule Take 1 (one) capsule by mouth once daily ??? Vit-Fe Fumarate-FA ( VITAMIN) 28-0.8 MG tablet Take 1 tablet by mouth once daily ??? raNITIdine (ZANTAC) 150 MG capsule Take 150 mg by mouth once daily Allergies Allergen Reactions ??? Tramadol Other Shaky, increased heart rate, sweating. ??? Penicillins Rash Physicial Exam: General appearance: alert, cooperative, no distress Lungs: exam not performed Heart: exam not performed Abdomen: soft without mass, non-tender, with normal bowel sounds Extremities: no clubbing, no cyanosis ASA Evaluation and Anesthesia Plan: Anesthesia administered per Anesthesia Department Indication(s) for Procedure: Other: preop testing Procedure Planned: EGD Anthony Martell MD GROUND ATTENDANT documented in this encounter Procedure Notes * Anthony Martell MD - 11/17/2022 7:30 AM CSTAssociated Order(s): EGD EGD completed. Gastritis, 2 cm HH, hill 3 Defect, Biopsies pending. A full PDF copy of the report with photos is in the results and/or media tab for your review. Please refer to this for full details of the procedure. Ok to proceed with preoperative plan, no need for follow up appointment. Pt to have hiatal hernia repair added on to primary procedure discussed Anthony Martell MD GROUND ATTENDANT documented in this encounter Plan of Treatment Not on file documented as of this encounter Procedures Procedure Name Priority Date/Time Associated Diagnosis Comments HCG URINE QUAL POCT NOTIFICATION Routine 11/17/2022 8:02 AM CAMPGROUND ATTENDANT Preoperative examination [place] ED EGD FLEX TRANSORAL DX 11/17/2022 7:40 AM CAMPGROUND ATTENDANT HELICOBACTER PYLORI UREASE (STL) STAT 11/17/2022 7:29 AM CAMPGROUND ATTENDANT Preop examination EGD Routine 11/17/2022 6:58 AM CAMPGROUND ATTENDANT Morbid obesity due to excess calories (HCC) Preop testing BMI 50.0-59.9, adult (HCC) HCG URINE QUALITATIVE - POCT (IP) INTERFACED Routine 11/17/2022 6:49 AM CAMPGROUND ATTENDANT documented in this encounter Results * HCG URINE QUAL POCT NOTIFICATION (11/17/2022 8:02 AM CAMPGROUND ATTENDANT) Comment Notification Label Only - See Separate Report 11/17/2022 8:02 AM CAMPGROUND ATTENDANT [facility] Urine URINE / Unknown 6:47 AM CAMPGROUND ATTENDANT Anthony Martell MD LAB - URINALYSIS ORD ERABLES Performing Organization Address [facility] de Phone Number [facility] [id number] [place] [address] * HELICOBACTER PYLORI UREASE (STL) (11/17/2022 7:29 AM CAMPGROUND ATTENDANT) Helicobacter pylori Urease Initial Negative Negative 11/18/2022 9:43 AM CAMPGROUND ATTENDANT [facility] Helicobacter pylori Urease Final Negative Negative 11/18/2022 9:43 AM CAMPGROUND ATTENDANT [facility] Comment:This is an appended report. These results have been appended to a previously preliminary verified report. Microbiology GASTRIC ANTRAL BIOPSY SPECIMEN / Unknown 11/17/2022 7:29 AM CAMPGROUND ATTENDANT 11/17/2022 12:29 PM CAMPGROUND ATTENDANT Anthony Martell MD LAB - MICROBIOLOGY O RDERABLES Performing Organization Address [facility] de Phone Number [facility] [address] [place] [phone] * EGD (11/17/2022 6:58 AM CAMPGROUND ATTENDANT) Report Endoscopy POC __ _ Patient Name: [...] Procedure Code(s): ? --- Professional --- ? 21192, Esophagogastroduode noscopy, flexible, transoral; with biopsy, ? single or multiple ? --- Technical --- ? 15698, Esophagogastroduode noscopy, flexible, transoral; with biopsy, ? [...] for other preprocedural examination CPT copyright 2019 [employer]. All rights reserved. The codes documented in this report are preliminary and upon retention manager review may be revised to meet current compliance requirements. Anthony Martell _ Anthony Martell MD 11/17/2022 7:30:13 AM This report has been signed electronically. Number of Addenda: 0 Note Initiated On: 11/17/2022 6:58 AM [facility] 11/17/2022 6:58 AM CAMPGROUND ATTENDANT Narrative Procedure Note Anthony Martell MD - [...] Anthony Martell MD GI PROCEDURE ORDERAB LES Performing Organization Address City/[facility]/ZIP Co de Phone Number [facility] [place] [address] * HCG URINE QUALITATIVE - POCT (IP) INTERFACED (11/17/2022 6:49 AM CAMPGROUND ATTENDANT) HCG Qual Urine Negative Negative 11/17/2022 6:54 AM CAMPGROUND ATTENDANT [facility] Urine URINE / Unknown 11/17/2022 6 :49 AM CAMPGROUND ATTENDANT 11/17/2022 6:54 AM CAMPGROUND ATTENDANT Anthony Martell MD LAB - POINT OF CARE ORDERABLES Performing Organization Address [facility]/ZIP Co de Phone Number [facility] [address] [place] [phone] documented in this encounter Visit Diagnoses Not on filedocumented in this encounter Administered Medications Inactive Administered Medications - up to 3 most recent administrations Medication Order MAR Action Action Date Dose Rate Site 0.9% NaCl infusion at 20 mL/hr, Intravenous, CONTINUOUS, Starting on Rebecca 11/17/22 at 0700, Until Rebecca 11/17/22 at 0918, Pre-procedure (GI) $ New Bag/Syringe 11/17/2022 7:10 AM CAMPGROUND ATTENDANT 0.9% NaCl injection 3 mL 3 mL, Intracatheter, PRE-PROCEDURE MULTIPLE, Starting on Rebecca 11/17/22 at 0646, Until Rebecca 11/17/22 at 0918, For Saline Lock flushes if one is inserted for Bronchoscopy/Endoscopy procedure., Pre-procedure (GI) documented in this encounter Active and Recently Administered Medications Times are shown in CAMPGROUND ATTENDANT. Scheduled Medication Order 11/15/2022 11/16/2022 11/17/2022 0.9% NaCl injection 3 mL 3 mL, Intracatheter, PRE-PROCEDURE MULTIPLE, Starting on Rebecca 11/17/22 at 0646, Until Rebecca 11/17/22 at 0918, For Saline Lock flushes if one is inserted for Bronchoscopy/Endoscopy procedure., Pre-procedure (GI) Continuous Medication Order 11/15/2022 11/16/2022 11/17/2022 0.9% NaCl infusion at 20 mL/hr, Intravenous, CONTINUOUS, Starting on Rebecca 11/17/22 at 0700, Until Rebecca 11/17/22 at 0918, Pre-procedure (GI) 0710 ($ New Bag/Syri nge - Provider: STACI Campos)0729 (Anesthesia Volume Adjustment - Provider: STACI Campos) documented in this encounter Care Teams Advanced Manufacturing Consultant Relationship Specialty Start Date End Date Crystal Cedeno [address] [place] [address] PCP - General Nurse Practitioner 10/24/22 documented as of this encounter
--- OUTSIDE RECORDS SUMMARY | 2024-10-07 02:45 | XMS_ITS | Encounter Summary ---
Author Organization [facility] Address [address] [facility] [place] [address] Care Team Providers Care Retirement Officer Name Role Phone Crystal Cedeno Primary Care Provider [phone] Reason for Referral * Procedure (Routine) - Closed Specialty Diagnoses / Procedures Referred By Deshawn t Referred To Contact Diagnoses Morbid obesity due to excess calories (HCC) Preop testing BMI 50.0-59.9, adult (HCC) Procedures EGD AL ED EGD FLEX TRANSORAL DX AL EGD FLEX TRANSORAL [place] [address] [place] [address] [place] [address] [place] [address] Referral ID Status Reason Start Date Expiration Date Visits Re quested Visits Authorized [id number] Closed 10/21/2022 10/21/2023 1 1 PRACTIC PHYSICIAN Reason for Visit * Auth/Cert (Routine) Specialty Diagnoses / Procedures Referred By Contac t Referred To Contact Procedures ESOPHAGOGASTRODUODENOSCOPY (EGD) DIAGNOSTIC Referral ID Status Reason Start Date Expiration Date Visits Re quested Visits Authorized [id number] 1 1 Encounter Details Date Type Department Care Team (Latest Contact Info) Description 11/17/2022 6:29 AM SANIPRACTIC PHYSICIAN - 11/17/2022 8:18 AM SANIPRACTIC PHYSICIAN Hospital Encounter [facility] - Endoscopy Services [address] [place] [address] [place] [address] [facility] [address] [place] [address] Surgery General Discharge Disposition: Home [...] Coronavirus/COVID-19? No / Unsure 10/21/2022 10:02 AM SANIPRACTIC PHYSICIAN documented as of this encounter Last Filed Vital Signs Vital Sign Reading Time Taken Comments Blood Pressure 142/85 11/17/2022 7:55 AM SANIPRACTIC PHYSICIAN Pulse 72 11/17/2022 7:55 AM SANIPRACTIC PHYSICIAN Temperature 37 ??C (98.6 ??F) 11/17/2022 7:37 AM SANIPRACTIC PHYSICIAN Respiratory Rate 19 11/17/2022 7:55 AM SANIPRACTIC PHYSICIAN Oxygen Saturation 99% 11/17/2022 7:55 AM SANIPRACTIC PHYSICIAN Inhaled Oxygen Concentration - - Weight 149.7 kg (330 lb) 11/17/2022 7:00 AM SANIPRACTIC PHYSICIAN Height 167.6 cm (5' 6 ) 11/17/2022 7:00 AM SANIPRACTIC PHYSICIAN Body Mass Index 53.26 11/17/2022 7:00 AM SANIPRACTIC PHYSICIAN documented in this encounter Functional Status Functional [...] ENDOSCOPY PRE-PROCEDURE MEDICAL HISTORY & PHYSICAL Leti H Brittany 11/17/2022 There were no vitals taken for this visit. Past Medical History: Diagnosis Date ??? BMI 50.0-59.9, adult (CMS/HCC) ??? NEGATIVE PAST MEDICAL HISTORY - SEE PROBLEM LIST Past Surgical History: Procedure Laterality Date ??? Cholecystectomy, Laparoscopic 2008 ??? LASIK SURGERY Bilateral 11/2016 ??? [place] Tooth Extraction No current facility-administered medications on [...] testing Procedure Planned: EGD Anthony Martell MD PRACTIC PHYSICIAN documented in this encounter Procedure Notes * [...] to primary procedure discussed Anthony Martell MD PRACTIC PHYSICIAN documented in this encounter Plan of Treatment Not on file documented as of this encounter Procedures Procedure Name Priority Date/Time Associated Diagnosis Comments HCG URINE QUAL POCT NOTIFICATION Routine 11/17/2022 8:02 AM SANIPRACTIC PHYSICIAN Preoperative examination AL ED EGD FLEX TRANSORAL DX 11/17/2022 7:40 AM SANIPRACTIC PHYSICIAN HELICOBACTER PYLORI UREASE (STL) STAT 11/17/2022 7:29 AM SANIPRACTIC PHYSICIAN Preop examination EGD Routine 11/17/2022 6:58 AM SANIPRACTIC PHYSICIAN Morbid obesity due to excess calories (HCC) Preop testing BMI 50.0-59.9, adult (HCC) HCG URINE QUALITATIVE - POCT (IP) INTERFACED Routine 11/17/2022 6:49 AM SANIPRACTIC PHYSICIAN documented in this encounter Results * HCG URINE QUAL POCT NOTIFICATION (11/17/2022 8:02 AM SANIPRACTIC PHYSICIAN) Comment Notification Label Only - See Separate Report 11/17/2022 8:02 AM SANIPRACTIC PHYSICIAN [facility] Urine URINE / Unknown 6:47 AM SANIPRACTIC PHYSICIAN Anthony Martell MD LAB - URINALYSIS ORD ERABLES Performing Organization Address [facility] de Phone Number [facility] [id number] [place] [address] * HELICOBACTER PYLORI UREASE (STL) (11/17/2022 7:29 AM SANIPRACTIC PHYSICIAN) Helicobacter pylori Urease Initial Negative Negative 11/18/2022 9:43 AM SANIPRACTIC PHYSICIAN [facility] Helicobacter pylori Urease Final Negative Negative 11/18/2022 9:43 AM SANIPRACTIC PHYSICIAN [facility] Comment:This is an appended report. These results have been appended to a previously preliminary verified report. Microbiology GASTRIC ANTRAL BIOPSY SPECIMEN / Unknown 11/17/2022 7:29 AM SANIPRACTIC PHYSICIAN 11/17/2022 12:29 PM SANIPRACTIC PHYSICIAN Anthony Martell MD LAB - MICROBIOLOGY O RDERABLES Performing Organization Address [facility] de Phone Number [facility] [id number] [place] [address] * EGD (11/17/2022 6:58 AM SANIPRACTIC PHYSICIAN) Report Endoscopy POC __ _ Patient Name: [...] Procedure Code(s): ? --- Professional --- ? 88510, Esophagogastroduode noscopy, flexible, transoral; with biopsy, ? single or multiple ? --- Technical --- ? 46101, Esophagogastroduode noscopy, flexible, transoral; with biopsy, ? [...] for other preprocedural examination CPT copyright 2019 [employer]. All rights reserved. The codes documented in this report are preliminary and upon post tensioning ironworker review may be revised to meet current compliance requirements. Anthony Martell _ Anthony Martell MD 11/17/2022 7:30:13 AM This report has been signed electronically. Number of Addenda: 0 Note Initiated On: 11/17/2022 6:58 AM [facility] 11/17/2022 6:58 AM SANIPRACTIC PHYSICIAN Narrative Procedure Note Anthony Martell MD - [...] Anthony Martell MD GI PROCEDURE ORDERAB LES [facility] [place] [address] * HCG URINE QUALITATIVE - POCT (IP) INTERFACED (11/17/2022 6:49 AM SANIPRACTIC PHYSICIAN) HCG Qual Urine Negative Negative 11/17/2022 6:54 AM SANIPRACTIC PHYSICIAN [facility] Urine URINE / Unknown 11/17/2022 6 :49 AM SANIPRACTIC PHYSICIAN 11/17/2022 6:54 AM SANIPRACTIC PHYSICIAN Anthony Martell MD LAB - POINT OF CARE ORDERABLES [facility] [address] [place] [address] documented in this encounter Visit Diagnoses Diagnosis Preoperative examination- Primary Preoperative examination, unspecified Morbid obesity due to excess calories (HCC) Preop testing Preoperative examination, unspecified BMI 50.0-59.9, adult (HCC) Body Mass Index 50.0-59.9, adult Preop examination Preoperative examination, unspecified documented in this encounter Administered Medications Inactive Administered Medications - up to 3 most recent administrations Medication Order MAR Action Action Date Dose Rate Site 0.9% NaCl infusion at 20 mL/hr, Intravenous, CONTINUOUS, Starting on Rebecca 11/17/22 at 0700, Until Rebecca 11/17/22 at 0918, Pre-procedure (GI) $ New Bag/Syringe 11/17/2022 7:10 AM SANIPRACTIC PHYSICIAN 0.9% NaCl injection 3 mL 3 mL, Intracatheter, PRE-PROCEDURE MULTIPLE, Starting on Rebecca 11/17/22 at 0646, Until Rebecca 11/17/22 at 0918, For Saline Lock flushes if one is inserted for Bronchoscopy/Endoscopy procedure., Pre-procedure (GI) documented in this encounter Active and Recently Administered Medications Times are shown in SANIPRACTIC PHYSICIAN. Scheduled Medication Order 11/15/2022 11/16/2022 11/17/2022 0.9% NaCl injection 3 mL 3 mL, Intracatheter, PRE-PROCEDURE MULTIPLE, Starting on Rebecca 11/17/22 at 0646, Until Rebecca 23 at 0918, For Saline Lock flushes if one is inserted for Bronchoscopy/Endoscopy procedure., Pre-procedure (GI) Continuous Medication Order 11/15/2022 11/16/2022 11/17/2022 0.9% NaCl infusion at 20 mL/hr, Intravenous, CONTINUOUS, Starting on Rebecca 11/17/22 at 0700, Until Rebecca 11/17/22 at 0918, Pre-procedure (GI) 0710 ($ New Bag/Syri nge - Provider: Jose Baird APRN-MANAGER REPORTING)0729 (Anesthesia Volume Adjustment - Provider: Jose Baird, KEVIN-MANAGER REPORTING) documented in this encounter Care Teams Retirement Officer Relationship Specialty Start Date End Date Crystal Cedeno [address] [place] [address] PCP - General Nurse Practitioner 10/24/22 documented as of this encounter
--- OUTSIDE RECORDS SUMMARY | 2024-10-07 02:45 | XMS_ITS | Encounter Summary ---
Author Organization [facility] Address [address] [facility] [place] [place] [address] Care Team Providers Care International Accountant Name Role Phone Malena Munoz MD Primary Care Provider [phone] Encounter Details Date Type Department Care Team (Latest Contact Info) Description 09/28/2020 9:25 AM CONCRETE MIXING PLANT SUPERINTENDENT - 09/28/2020 11:59 PM CONCRETE MIXING PLANT SUPERINTENDENT Hospital Encounter [facility] [employer] [address] [address] Krista Bravo, SUPERVISOR AGENCY APPOINTMENTS-DISPATCHER [employer] [address] [place] [address] Discharge Disposition: Home or Self Care Social [...] COVID-19? Unable to assess 09/28/2020 9:24 AM CONCRETE MIXING PLANT SUPERINTENDENT documented as of this encounter Functional Status [...] Procedure Name Priority Date/Time Associated Diagnosis Comments SARS-COV2 (COVID-19) PANEL (STL) Routine 09/28/2020 9:25 AM CONCRETE MIXING PLANT SUPERINTENDENT Contact with or exposure to viral disease SARS-COV-2 (COVID-19) IN HOUSE Routine 09/28/2020 9:25 AM CONCRETE MIXING PLANT SUPERINTENDENT Contact with or exposure to viral disease documented in this encounter Results * (ABNORMAL) SARS-COV-2 (COVID-19) IN HOUSE (09/28/2020 9:25 AM CONCRETE MIXING PLANT SUPERINTENDENT) COVID-19 PCR Detected( AA) Not detected 09/28/2020 10:48 PM CONCRETE MIXING PLANT SUPERINTENDENT [facility] Microbiology SPECIMEN FROM NASOPHARYNGEAL STRUCTURE / Unknown Collection / Unknown 09/28/2020 9:25 AM CONCRETE MIXING PLANT SUPERINTENDENT 09/28/2020 9:25 AM CONCRETE MIXING PLANT SUPERINTENDENT Narrative [facility] - 09/28/2020 10:48 PM CONCRETE MIXING PLANT SUPERINTENDENT This nucleic acid amplification assay performance was validated by [facility]. This test has been [...] assay are available upon request. Krista Bravo SUPERVISOR AGENCY APPOINTMENTS-DISPATCHER CHIEF [employer] LAB - MICROBIOL OGY ORDERABLES [facility] [address] [place] [address], [facility] [phone] documented in this encounter Visit Diagnoses Diagnosis Contact with or exposure to viral disease Contact with or exposure to other viral diseases documented in this encounter Additional Health Concerns Infection Onset Date Last Indicated Resolved Time COVID-19 Under Investigation 09/28/2020 09/28/2020 09/28/2020 10:48 PM CONCRETE MIXING PLANT SUPERINTENDENT COVID-19 Confirmed 09/28/2020 09/28/2020 01/14/202 1 4:35 AM CONCRETE MIXING PLANT SUPERINTENDENT documented as of this encounter Care Teams International Accountant Relationship Specialty [place] [address] [facility] [place] [address] PCP - General 07/17/19 01/22/21 documented as of this encounter
--- OUTSIDE RECORDS SUMMARY | 2024-10-07 02:45 | XMS_ITS | Encounter Summary ---
Author Organization [facility] Address [address] [place] [address] Care Team Providers Care Lens Finisher Name Role Phone Miladis Sosa PA-C Primary Care Provider [phone] Encounter Details Date Type Department Care Team (Latest Contact Info) Description 10/21/2022 Travel Social History Tobacco Use Types Packs/Day [...] Coronavirus/COVID-19? No / Unsure 10/21/2022 10:02 AM CASUALTY CLAIM ADJUSTER documented as of this encounter Functional Status [...] on filedocumented in this encounter Care Teams Lens Finisher Relationship Specialty Start Date End Date Miladis Sosa, LARRYC [address] [place] [address] PCP - General Physician Filter Washer And Presser 02/26/21 10/23/22 documented as of this encounter
--- OUTSIDE RECORDS SUMMARY | 2024-10-07 02:45 | XMS_ITS | Encounter Summary ---
Author Organization [facility] Address [address] [facility] [place] [address] Care Team Providers Care Portable Machine Cutter Name Role Phone Miladis Sosa PA-C Primary Care Provider [phone] Reason for Visit * Reason Comments Diet Encounter Details Date Type Department Care Team (Late st Contact Info) Description 10/21/2022 10:15 AM INVESTOR Office Visit [facility] Weight Management Services [address] [place], [place] [id number] Morbid obesity (HCC) (Primary Dx) Social History Tobacco Use Types [...] Coronavirus/COVID-19? No / Unsure 10/21/2022 10:02 AM INVESTOR documented as of this encounter Last Filed Vital Signs Vital Sign Reading Time Taken Comments Blood Pressure - - Pulse - - Temperature - - Respiratory Rate - - Oxygen Saturation - - Inhaled Oxygen Concentration - - Weight 154 kg (339 lb 6.4 oz) 10/21/2022 10:08 A M INVESTOR Height 167.6 cm (5' 6 ) 10/21/2022 10:08 AM INVESTOR Body Mass Index 54.78 10/21/2022 10:08 AM INVESTOR documented in this encounter Functional Status Functional [...] as of this encounter Progress Notes * Dorys Samano RD/SHLOMO - 10/21/2022 10:45 AM CST Weight Management Medical Nutrition Therapy Session 1 Date: 10/21/2022 Patient: Leti Soto Date of : 1990 (31 year old) PCP Physician: Miladis Sosa PA-C Referring Physician: Anthony Martell MD Assessment: Pt planning sleeve. Yesenia has tried multiple weight loss efforts since she was 8 yearsold. Prior to having her daughter, she tried a low carb 1500 kcal diet and it seemed to work well for her. She has been researching the surgery for a while and has watched all the videos so she is very familiar with many aspects and has started working towards these. She is currently using the [employer] eva to track her calories. She does not smoke, drinks alcohol once a month. She had been drinking diet Mtn Dew but has been eliminating it for surgery. She primarily drinks water, over 64oz daily.She also drinks 2 cups of coffee in the morning. She eats 3 meals a day with 1-2 snacks, all protein focused. She is fairly active during the day-takes a walk to the park with her daughter in the morning and walks on the treadmill while her daughter is taking a nap. She also likes to do some dance cardio and do some exercises on the Fit On eva. B: protein bar or overnight oats L: frozen protein meal, chicken on salad, leftovers S: Quest chips, protein bar D: protein, veggie, starch S: protein pudding made with Premier or Croatian yogurt chocolate bar Pt has seen her PCP for diet visits and will be seeing them for an additional visit soon. Reviewed all aspects of the surgery today for clearance. Discussed rodríguez diet principles, balanced bariatric plate, provided bariatric nutrition guide. Discussed bariatric vitamins and calcium-provided handout and samples. Discussed pre op liquid diet and post op diet progression. Past Medical History: Diagnosis Date ??? NEGATIVE PAST MEDICAL HISTORY - SEE PROBLEM LIST Diets patient has tried: Calorie Counting , Weight Watchers, Azeb Milo, Medications and non surgical program, low carb/low fat diet, TOPS Patient is participating in the following exercise program: Walking and dance cardio, Fit On vea Pertinent Nutrition Medications: Reviewed Pertinent Nutrition Labs: Reviewed Clinical Data: Height: 167.6 cm (5' 6 ) Weight: (!) 154 kg (339 lb 6.4 oz) BMI (Calculated): 54.81 Diagnostic Statement: Obesity related to excess energy intake and decreased physical activity AEB elevated BMI. Interventions: Bariatric Nutrition Guide provided and reviewed, including: previous food records, proper eating habits/behavior modification tips, adequate hydration, no alcohol/carbonation, protein requirements, high protein foods, recommended protein supplements, portion control, bariatric multivitamin/mineral s upplementation recommendations, pre op liquid diet, post surgery diet progression, importance of routine activity/exercise , bariatric post op concerns: dumping syndrome, N/V, constipation and goals for lifetime success Materials Provided: Bariatric Nutrition Guide, Food and Activity Guide, Support Group Schedule, High Protein Liquid Supplement Handout, Fitness Center Membership Information and Vitamin Option Handout Behavior and Lifestyle Modifications Discussed: Eat 3 meals daily with 1-2 high protein snacks as needed Choose low fat/low sugar items Eat 60-80 gm protein per day Eliminate caloric beverages, carbonated beverages and limit caffeine Perform 30 minutes of cardiovascular exercise per day, most days of the week as able and approved by physician Do not graze between meals Incorporate fruits and vegetables Include whole grain foods Take 15-20 minutes to eat meals Reduce stress and emotional eating Portion control Recipe modifications/cooking methods Monitoring: Pt encouraged to call RD with questions and/or concerns. Pt verbalizes understanding of expectation of gradual weight loss or weight maintenance prior to surgery. Evaluation of Overall Compliance Potential: High Pt very pleasant, receptive, making positive changes, verbalized understanding of nutrition education. Asked appropriate questions prn. Pt has reviewed pre-operative weight management contract, and verbalizes understanding of program expectations: yes Nutritional Review ?? Cleared, no additional RD visits required _x__ ?? Not cleared, additional RD visit(s) required ___ ?? Continue with Medically Managed Diet visits ___ ?? Bariatric Case Conference review required ___ Session Information Session date: 10/21/2022 Session total minutes: [address]/SHLOMO STOR documented in this encounter Plan of Treatment Not on file documented as of this encounter Visit Diagnoses Diagnosis Morbid obesity (HCC)- Primary Morbid obesity documented in this encounter Care Teams Portable Machine Cutter Relationship Specialty Start Date End Date Miladis Sosa, PAShayyC [address] [place] [address] PCP - General Physician Consulting Engineer 02/26/21 10/23/22 documented as of this encounter
--- OUTSIDE RECORDS SUMMARY | 2024-10-07 02:45 | XMS_ITS | Encounter Summary ---
Author Organization [facility] Address [address] [facility] [place] [address] Care Team Providers Care Occupancy Specialist Name Role Phone Malena Munoz MD Primary Care Provider [phone] Reason for Visit * Reason Comments Follow-up follow up Encounter Details Date Type Department Care Team (Late Contact Info) Description 01/14/2021 9:30 AM CDT Video Visit [facility] [id number] [place] [address], [facility] [address] [place] [address] Nydia Armas MD [address] [place] [address] [address] Morbid obesity due to excess calories (HCC) ; Situational anxiety; Anxiety and depression Social History Tobacco Use Types Packs/Day Years [...] - Inhaled Oxygen Concentration - - Weight 95.7 kg (211 lb) 01/14/2021 9:17 AM CDT Height 167.6 cm (5' 6 ) 01/14/2021 9:17 AM CDT Body Mass Index 34.06 01/14/2021 9:17 AM CDT documented in this encounter Functional [...] Progress Notes * Nydia Armas MD - 01/14/2021 9:31 AM CDT Bariatric FollowUp VIRTUAL Visit This [...] on visit on date of encounter is: 20 minutes with 15 minutes spent in medical discussion Chief Complaint: Obesity, severe: Other relevant medical problems: anxiety and depression. HPI: The patient is here for follow-up for medical wt loss. Adherence to plan is Good as judged by the change in weight. Weight change since last visit: Current Weight (estimated by patient using home scale): 211 LB, lost 11 lb in the last 2 months. Dietary and Exercise/Physical activity change from previous visit: Patient is staying with the 1200cal/d, walks daily since moving into a new house, Stopped logging as it was adding to her stress while moving. Still exercising, and meal prepping, mindful of portion sizes (weight and measured regularly). Review of Systems: Changes in medical history [...] OBJECTIVE: Ht 5' 6 (1.676 m) Wt 211 lb (95.7 kg) BMI 34.06 kg/s2Xucnjm: 5' 6 (167.6 cm) Body mass index is 34.06 kg/m??. CrCl cannot be calculated (Patient's most recent lab result is older than the maximum 15 days allowed.). Wt Readings from Last 3 Encounters: 01/14/21 211 lb (95.7 kg) 11/12/20 222 lb (100.7 kg) 09/10/20 225 lb (102.1 kg) BP Readings from Last 3 Encounters: [...] Diabetes Father ??? Heart Disease Father no [place] ??? Depression Maternal Grandmother ??? Anxiety Disorder [...] this visit. Impression/Plan: Obesity Class severe: - Great progress and continues compliance with the diet plan. Lost 71 pounds in 10 months, and close to achieving her second goal point of 190 lb. I advised the patient to log her most effective behavioral changes to use as template in the future if progress slow down or if she starts regaining some pounds. ICD-10-CM 1. Morbid obesity due to excess calories E66.01 2. Situational anxiety F41.8 3. Anxiety and depression F41.9 F32.9 - Continue current meds. - Continue Food [...] for ongoing weight management (marked with X): Business Trainer care is recommended. ___x__ The patient received [...] This encounter with the patient lasted over 20 min, more than 50% of the time was in direct [id number] counseling with the patient regarding increased physical activity, reduced caloric intake, healthy diet and behavioral modifications. Nydia Armas MD 01/14/2021 documented in this encounter Plan of Treatment Not on file documented as of this encounter Visit Diagnoses Diagnosis Morbid obesity due to excess calories (HCC)- Primary Situational anxiety Other anxiety states Anxiety and depression Dysthymic disorder documented in this encounter Care Teams Occupancy Specialist Relationship Specialty [place] [address] [place] [address] PCP - General 07/17/19 01/22/21 documented as of this encounter
--- OUTSIDE RECORDS SUMMARY | 2024-10-07 02:45 | XMS_ITS | Encounter Summary ---
Author Organization [facility] Address [address] [address] Care Team Providers Care Warehouse Shift Supervisor Name Role Phone Crystal Cedeno Primary Care Provider [phone] Reason for Visit * Reason Onset Date Comments Surgery Scheduling 11/25/2022 Encounter Details Date Type Department Care Team (Late st Contact Info) Description 11/25/2022 Telephone [facility] [id number] [place] [id number] [place] [id number] [address] Surgery Scheduling Social History Tobacco Use Types Packs/Day Years [...] encounter Miscellaneous Notes * Telephone Encounter - Latonia Tinsley RN - 11/25/2022 10:00 AM STRAP SETTER Called to discuss surgery dates and verify surgery type with patient. Patient is now scheduled for laparoscopic sleeve w/HHR by Anthony Martell MD on 12/14 at [facility]. Patient to schedule SEC appointment for evaluation and testing, given centralized scheduling phone number: [phone]. Patient is scheduled to attend preoperative education class presented by bariatric team on 11/30. Instructed of 2 week liquid diet requirement- to start 11/30 . Instructed patient to start bariatric MVI with liquid diet or 1 week before surgery. Instructed patient preop consult weight was 339. Instructed patient that they will be weighed on class day and that they are expected to be below or at preop consult weight. Reminded pt to stop any blood thinners to include plavix, asa, coumadin, omega3, fish oil, NSAIDS 5-7 days prior to surgery, except for prescribed daily dose of asa 81mg. Reminded female patients should be avoided for 18 months following surgery, and must stopEstrogen containing control 2 weeks before and 4 weeks after surgery. Instructed pt to write 1- 4 (or 5 if needs 2nd consult) 1. Surgery date 12/14 2. Pre op class date 11/30 3. SEC date TBD 4. Pre op liquid diet start date 11/30 5. 2nd consult if required last OV 10/21 Pt denies questions at this time. The following clearances/testing were obtained on this patient: PCP Clearance is in Care Everywhere on 11/04 P SETTER documented in this encounter Plan of Treatment Not on file documented as of this encounter Visit Diagnoses Not on filedocumented in this encounter Care Teams Warehouse Shift Supervisor Relationship Specialty Start Date End Date Crystal Cedeno [address] [place] [address] PCP - General Nurse Practitioner 10/24/22 documented as of this encounter
--- OUTSIDE RECORDS SUMMARY | 2024-10-07 02:45 | XMS_ITS | Encounter Summary ---
Author Organization [facility] Address [address] [facility] [place] [address] Care Team Providers Care Assembly Machine Operator Name Role Phone Malena Munoz MD Primary Care Provider [phone] Reason for Visit * Reason Onset Date Comments Appointment 05/14/2020 Encounter Details Date Type Department Care Team (Late st Contact Info) Description 05/14/2020 Telephone [facility] Services [id number] [place] [address], [facility] [address] [place] [address] Nydia Armas MD [facility] [address] [address] Appointment Social History Tobacco Use Types Packs/Day Years [...] encounter Miscellaneous Notes * Telephone Encounter - Max Gomez - 05/14/2020 7:44 AM CDT Left a voicemail to begin rooming documented in this encounter Plan of Treatment Not on file documented as of this encounter Visit Diagnoses Not on filedocumented in this encounter Care Teams Assembly Machine Operator Relationship Specialty [place] [address] [address] [address] PCP - General 07/17/19 01/22/21 documented as of this encounter
--- OUTSIDE RECORDS SUMMARY | 2024-10-07 02:45 | XMS_ITS | Encounter Summary ---
Author Organization [facility] Address [address] [place] [address] Care Team Providers Care Superintendent Local Name Role Phone Unavailable Primary Care Provider Unavailabl e Reason for Visit * Reason Comments General * Auth/Cert Specialty Diagnoses / Procedures Referred By Deshawn t Referred To Contact Referral ID Status Reason Start Date Expiration Date Visits Re quested Visits Authorized [id number] 1 1 Encounter Details Date Type Department Care Team (Latest Contact Info) Description 05/07/2019 4:11 PM CDT - 05/11/2019 1:50 PM CDT Hospital Encounter [facility] 6W MOTHER/BABY [address] [place] [address] Rey Mar MD [address] [id number] [employer] Discharge Disposition: Home or Self Care Social [...] Sign Reading Time Taken Comments Blood Pressure 138/70 05/11/2019 8:44 AM CDT Pulse 61 05/11/2019 8:44 AM CDT Temperature 36.6 ??C (97.9 ??F) 05/11/2019 8:44 AM CD T Respiratory Rate 18 05/11/2019 8:44 AM CDT Oxygen Saturation 100% 05/11/2019 8:44 AM CDT Inhaled Oxygen Concentration - - Weight 149.7 kg (330 lb) 05/07/2019 4:11 PM CDT Height 167.6 cm (5' 6 ) 05/07/2019 4:11 PM CDT Body Mass Index 53.26 05/07/2019 4:11 PM CDT documented in this encounter Functional [...] Sig Dispensed Refills Start Date End Date diphenhydrAMINE (BENADRYL) 25 MG capsule Take 25 [...] daily 11/17/2022 documented as of this encounter Progress Notes * Ling Fortune RN - 05/11/2019 1:50 PM CDT Pt discharged from unit at this time with significant other and daughter. No prescriptions prescribed for discharge. Spoke with Dr. Mar per telephone order pt is okay to be discharged and follow up in 6 weeks for check up. Pt v/u of all d/c instructions, denied further questions. When this nurse obtained d/c orders from Dr. Mar, he verbalized he is out of town and informed me to go ahead and place discharge orders for him per telephone order. I was unable to sign the orders due to a ADMIT to inpatient > 2 midnights order that needed to be co-signed by him (the attending MD), so AVS was not able to be printed. Dr. Mar was notified about this and he said he wasn't able to get to a computer for several hours. Went over discharge instructions verbally with patient. * Jeannette Carranza - 05/11/2019 3:41 AM CDT Shift Summary: Assessment and vitals have been WNL. Patient is up ad melonie, voiding, and tolerating a regular diet. Patient complains of cramping pains while , which has been managed with q6hr Ibuprofen.Fundus is firm, midline, U-2. Lochia is scant, rubra, and no clots have been noted. Mother is independently and successfully cluster feeding infant. She is rooming in with infant and bonding well. No further concerns. Jeannette Carranza RN * Jeannette Carranza - 05/10/2019 11:29 PM CDT Problem: Emotional Well-Being Goal: Parent- bonding occurs Outcome: Ongoing Mother bonding is going well. is rooming in, skin to skin contact occurs between feeds, and independent is occurring. * Laura Farr RN - 05/10/2019 6:27 PM CDT Shift summary: Pain controlled with Motrin. Tolerating regular diet. Up ad melonie and voiding without difficulty. assessment WNL. infant and bonding well. VSS. * Laura Farr RN - 05/10/2019 5:12 PM CDT Problem: Goal: Status is maintained within the expected range. Outcome: Ongoing Problem: Emotional Well-Being Goal: Patient participates in decision-making and choices for care. Outcome: Ongoing Goal: Parent- bonding occurs Outcome: Ongoing * Rey Mar MD - 05/10/2019 2:57 PM CDT OB ATTENDING ?? Pain OK. well. ?? AVSS ABD soft, nontender, fundus firm EXT nontender ?? Hgb 8.9 ?? A: PPD#1, doing well. P: Routine care. Plan home tomorrow. * Dodie Kline RN - 05/10/2019 5:35 AM CDT Shift Summary: VSS. Fundus firm, midline. Small lochia, no presence of clots. Incision well approximated, no drainage present, sutures intact. Assessment WNL Pain controlled well with PO pain medications. Ambulating independently. Tolerating regular diet. Voiding independently. Infant is rooming in and bonding well. Breast feeding Pt denies any questions or concerns at this time. Will continue to monitor. * Dodie Kline RN - 05/09/2019 7:42 PM CDT rooming in with parents. Bonding well. Will continue to monitor * Dodie Kline RN - 05/09/2019 7:42 PM CDT rooming in and bonding well. * Laura Farr RN - 05/09/2019 5:34 PM CDT Shift summary: Pain controlled with Motrin. Tolerating regular diet. Up ad melonie and voiding without difficulty. assessment WNL. and bonding well. VSS. * Laura Farr RN - 05/09/2019 11:34 AM CDT Problem: Emotional Well-Being Goal: Parent- bonding occurs Outcome: Ongoing Note: Ltei is bonding well with daughter * Dodie Kline RN - 05/09/2019 7:26 AM CDT Shift Summary: [id number] Vag delivery arrived to unit via wheelchair from L&D at 0302, with IV Pitocin infusing into right hand IV tolerating IVF well. Patient able to ambulate from wheelchair to bed well, tolerating activity well. VSS. Fundus firm, midline. Small lochia, no presence of clots. Incision well approximated, no drainage present, sutures intact. Pain controlled well with PO pain medications. Ambulating independently. Tolerating regular diet. Voiding independently. Rooming in and bonding well with parents. Patient desires to breast feed Pt denies any questions or concerns at this time. Will continue to monitor. * Dodie Kline RN - 05/09/2019 3:23 AM CDT Rooming in with infant, * Dodie Kline RN - 05/09/2019 3:22 AM CDT bonding well with parents in room. Safe sleeping education completed. Understanding verbalized. Will continue to monitor * Rey Mar MD - 05/09/2019 12:37 AM CDT girl. See delivery summary. I was present and scrubbed throughout. * Ling Desir MD - 05/08/2019 9:33 PM CDT R4 Progress Note Went to patient for FHR decelerations. Patient was repositioned multiple times, O2 10L non-rebreather placed. BP checked and at baseline. Pitocin was turned off. SVE now 8/80/-1. FHT recovered, baseline 145-150bpm, mod variability, no decels. Dr. Mar notified. Will restart pitocin in 30 minutes if FHT remain reassuring. Ling Desir MD 05/08/2019 9:38 PM * Tammy Carpenter DO - 05/08/2019 8:29 PM CDT R3 OB Progress Note Admitted for IOL for oligohydramnios at 39 weeks 1 day. Comfortable with epidural in place. Feelingmore pressure. BP 117/58 Temp 97.6 ??F (36.4 ??C) (Oral) Resp 18 Ht 5' 6 (1.676 m) Wt 330 lb (149.7 kg) SpO2 98% BMI 53.26 kg/m2 EFM: baseline 140bpm, minimal to moderate variability, positive accels, reactive to scalp stim, occasional decels TOCO: Q2-3mins Cervix: 7/80/-2 A/P: IOL for Oligohydramnios - cervix as above - membranes ruptured - GBS positive; Ancef for ppx in labor due to PCN allergy - s/p Cervidil - continue Pitocin per protocol - reassess in 2 hours Tammy Carpenter DO 05/08/2019 8:29 PM * Sabino Toscano MD - 05/08/2019 4:53 PM CDT L&D Progress Note Strip Review Cervical Exam as of 1630 Dilation (cm): 5.0 Effacement: 80 Station: -2 Objective Patient Vitals for the past 6 hrs: Temp Resp BP 05/08/19 1549 -- -- 114/52 05/08/19 1538 -- -- 119/56 05/08/19 1534 -- -- 128/58 05/08/19 1507 -- -- 112/55 05/08/19 1458 -- -- 109/53 05/08/19 1448 -- -- 114/57 05/08/19 1445 -- -- 107/57 05/08/19 1442 -- -- 99/56 05/08/19 1439 -- -- 97/53 05/08/19 1436 -- -- 99/57 05/08/19 1433 -- -- 99/54 05/08/19 1430 -- -- 98/52 05/08/19 1428 -- -- 101/52 05/08/19 1424 -- -- 104/53 05/08/19 1414 -- -- 102/54 05/08/19 1357 -- -- 108/57 05/08/19 1352 -- -- 103/55 05/08/19 1347 -- -- 109/53 05/08/19 1341 -- -- 114/62 05/08/19 1338 -- -- 109/56 05/08/19 1335 -- -- 120/68 05/08/19 1229 -- -- 139/74 05/08/19 1209 97.3 ??F (36.3 ??C) 18 -- Assessment EFM: baseline 140 bpm, mod variability, reactive, some early decelerations, none recently TOCO: q 2-3 mins FWB reassuring A/P 28 year old at 39w2d with: IOL for Oligohydramnios - cervix as above - AROM'd at 1530 with CF - GBS positive; Ancef for ppx in labor due to PCN allergy - s/p Cervidil - continue Pitocin per protocol, currently at 8 Sabino Toscano MD 05/08/2019 4:53 PM * Sabino Toscano MD - 05/08/2019 4:31 PM CDT Placed IUPC and FSE. Cervical Exam Dilation (cm): 5.0 Effacement: 80 Station: -2 Sabino Toscano MD 05/08/2019 4:34 PM * Rey Mar MD - 05/08/2019 3:39 PM CDT OB ATTENDING Pain OK with epidural. AVSS NST 130 reactive TOCO: contractions every 2-4 min Cervix 5/80/-2. AROM with clear fluid. Continue labor. * Sabino Toscano MD - 05/08/2019 11:47 AM CDT L&D Progress Note Strip Review Cervical Exam as of 1145 Dilation (cm): 2.5 Effacement: 50 Station: -3 Objective Patient Vitals for the past 6 hrs: Temp Resp BP 05/08/19 0719 97.8 ??F (36.6 ??C) 18 -- 05/08/19 0713 -- -- 121/66 Assessment NST: baseline 125 bpm, mod variability, reactive, no decelerations TOCO: difficult to monitor, q 2-3 mins FWB reassuring A/P 28 year old at 39w2d with: IOL for Oligohydramnios - cervix as above - membranes intact - GBS positive; Ancef for ppx in labor due to PCN allergy - s/p Cervidil - continue Pitocin per protocol, currently at 8 Sabino Toscano MD 05/08/2019 11:47 AM * Carol Boyd I - 05/08/2019 9:18 AM CDT CLINICAL NUTRITION Pt screened per nutrition Leveling of Care protocol: Pt is screened 2/2 BMI >40 a potential health risk , she could benefit from weight loss and diet education once she is delivered and no longer . If she has a C- section she could benefit from Wilfrid to promote wound healing 2/2 MO.Wilfrid (Wound Healing Supplement) provides 90 calories, 14 grams amino acid (7 gm L-arginine & 7gm L- glutamine), 2.5 grams protein (hydrolyzed collagen), 8 grams of carb per serving along with 9.5mg Zinc, 300mg Vit C, 15 mg Vitamin E, and 1.2 mcg Vitamin B12 ,a low calorie , low carb and high protein drink. She is currently in L&D for IOL , on Clear Liquids . No GCT in this record , HgA1c was good . No pre- weight in this record . Last BM was 2 days ago . Gestational Age: 39w2d Med/Surg History and Clinical Diagnoses: IOL for Oligohydramnios Height: 5' 6 (167.6 cm) Weight: (!) 330 lb (149.7 kg) Pre- Weight: (unknown ) No data found. Recent Labs Component Name 05/07/19 1652 03/22/17 1345 HGB 11.8* 13.5 HCT 36.1 40.9 Pt could benefit from PNV + and Feso4 Supplement PP Recent Labs Component Name 03/22/17 1345 HGBA1C 5.1 A woman admitted at 39w2d with Estimated Date of Delivery: 05/13/19. Weight gain of unknown amount , ideal for GA and BMI is 11-20 # at term Prepregnancy BMI indicates Mo class 3 currently . Skin/Wound: WDL. Appetite : deferred Last BM : 05-06-19 Diet Order:Current diet order: Clear Liquids Food Allergies: No known food allergies P.O.intake for past 48 hours: No data recorded Nutrition recommendation: agree with current nutrition order Education needed: None Education is not indicated at this time , follow for supplement and education needs PP. Will follow per low nutritional risk protocol. Carol Mildred Oliver, DTWallace 05/08/2019 9:22 AM Ascom [id number] * Sabino Toscano MD - 05/08/2019 8:49 AM CDT L&D Progress Note Strip Review Cervical Exam as of 0508 Dilation (cm): 1.5 Effacement: 25 Station: -3 Objective Patient Vitals for the past 6 hrs: Temp Resp BP 05/08/19 0719 97.8 ??F (36.6 ??C) 18 -- 05/08/19 0713 -- -- 121/66 05/08/19 0515 -- -- 157/65 05/08/19 0512 99 ??F (37.2 ??C) -- -- Assessment NST: baseline 125 bpm, mod variability, reactive, no decelerations TOCO: irregular, pt feeling q 2-6 mins FWB reassuring A/P 28 year old at 39w2d with: IOL for Oligohydramnios - cervix as above - membranes intact - GBS positive; Ancef for ppx in labor due to PCN allergy - s/p Cervidil - continue Pitocin per protocol, currently at 4 Sabino Toscano MD 05/08/2019 8:49 AM * Tammy Carpenter DO - 05/08/2019 4:55 AM CDT R3 OB Progress Note Admitted for IOL for oligohydramnios at 39 weeks 1 day. BP 121/59 Temp 98.3 ??F (36.8 ??C) (Oral) Resp 16 Ht 5' 6 (1.676 m) Wt 330 lb (149.7 kg) BMI 53.26kg/m2 EFM: baseline 13bpm, moderate variability, positive accels, no decels TOCO: irregular, Q1-3mins Cervix: 1-2/25/-3 A/P: IOL for Oligohydramnios - cervix as above - membranes intact - GBS positive; Ancef for ppx in labor due to PCN allergy - s/p Cervidil - initiate Pitocin per protocol Tammy Carpenter DO 05/07/2019 4:55 AM * Tammy Carpenter DO - 05/07/2019 11:09 PM CDT R3 OB Progress Note Admitted for IOL for oligohydramnios at 39 weeks [address] and patient remains comfortable. BP 128/63 Temp 98.5 ??F (36.9 ??C) (Oral) Resp 18 Ht 5' 6 (1.676 m) Wt 330 lb (149.7 kg) BMI 53.26kg/m2 EFM: baseline 135bpm, moderate variability, positive accels, no decels TOCO: irregular Cervix: FT/0/-3 at 1654 A/P: IOL for Oligohydramnios - cervix as above - membranes intact - GBS positive; Ancef for ppx in labor due to PCN allergy - Cervidil placed 05/07 at 1653; to be removed in 12 hours - continue to monitor - epidural upon request Tammy Carpenter DO 05/07/2019 11:13 PM * Aria Arreola RN - 05/07/2019 5:17 PM CDT Leti and her baby are continuously monitored and are stable at this time. documented in this encounter H&P Notes * Glenys Rice MD - 05/07/2019 4:31 PM CDT PGY1 Obstetric H&P Note 05/07/2019, 5:20 PM CC: IOL for oligohydramnios HPI: 28 year old at 39w1d gestation Dating: LMP c/w 8 week ultrasound Estimated Date of Delivery: 05/13/19 care: is with Dr. Mar Patient's is complicated by: Patient Active Problem List Diagnosis Date Noted [...] BMI 40.0-44.9, adult 01/12/2016 Priority: Not Prioritized Patient presents for IOL for oligo. She has no other complaints and denies vision changes, chest pain, increased SOB, n/v, bowel/urinary changes. She reports occasional headaches that are well controlled . negative Ctx. negative LOF. negative VB. positive FM. Review of Symptoms: A comprehensive review of systems was negative except as stated above Obstetrical History: OB History Para Term AB Living 1 SAB TAB Ectopic Multiple Live Births # Outcome Date GA Lbr Bimal/2nd Weight Sex Delivery Anes PTL Lv 1 Current Gynecologic History: History of abnormal pap smear: denies History of procedure on cervix: denies STI History: Denies gonorrhea, chlamydia, trichomonas, herpes, HIV, syphilis Medical History: Past Medical History: Diagnosis Date ??? NEGATIVE PAST MEDICAL HISTORY - SEE PROBLEM LIST She denies history of hypertension, diabetes, asthma or bleeding disorders. Psych History: Depression: No Anxiety: Yes - No meds Bipolar disorder: No Schizophrenia: No Surgeries: Past Surgical History: Procedure Laterality Date ??? Cholecystectomy, Laparoscopic 2008 ??? LASIK SURGERY Bilateral 11/2016 ??? [place] Tooth Extraction Current Medications: Prior to Admission medications Medication Sig Start Date End Date Taking? Authorizing Provider diphenhydrAMINE (BENADRYL) 25 MG capsule Take 25 mg by mouth every 6 hours as needed for Itching Reported on 12/22/2016 Fausto Helm MD docusate sodium (COLACE) 100 MG capsule Take 1 capsule by mouth 2 times daily 11/26/18 Yes Sabino Toscano MD omeprazole (PRILOSEC) 20 MG capsule Take 20 mg by mouth daily before breakfast Yes Fausto Helm MD ondansetron, disintegrating, (ZOFRAN ODT) 4 MG tablet Take 1 tablet by mouth every 6 hours as needed for Nausea/Vomiting Allow tablet to dissolve on the tongue Patient not taking: Reported on 05/07/2019 04/04/19 Maggi Paris MD Vit-Fe Fumarate-FA ( VITAMIN) 28-0.8 MG tablet Take 1 tablet by mouth once daily Yes Fausto Helm MD raNITIdine (ZANTAC) 150 MG capsule Take 150 mg by mouth once daily Fausto Helm MD Allergies: Allergies Allergen Reactions ??? Tramadol Other Shaky, increased heart rate, sweating. ??? Penicillins Rash Social History: Social History Smoking status: Never Smoker Smokeless tobacco: Never Used Alcohol use: No Drug use: No Sexual activity: Yes Partners with: Male Family History: Family History Problem Relation Age of Onset ??? Depression Mother ??? Anxiety Disorder Mother ??? Hypertension Father ??? Diabetes Father ??? Heart Disease Father no AR ??? Depression Maternal Grandmother ??? Anxiety Disorder Maternal Grandmother agoraphobia ??? Diabetes Maternal Grandfather ??? Heart Disease Maternal Grandfather ??? Cancer - Breast Paternal Grandmother ??? Cancer - Breast Other 2 maternal great aunts No history of infants born with defects No history of family members with bleeding disorders or history of blood clots. No history ovarian or uterine cancer. Positive family history of breast cancer in maternal grandmother Objective: Patient Vitals for the past 24 hrs: Temp Resp BP 05/07/19 1623 -- -- 131/63 05/07/19 1621 98.5 ??F (36.9 ??C) 18 -- Assessment/ Non-Stress Test Baseline: 140 beats/minute moderate variability Reactive Contractions: Irregular Decelerations: None Accelerations: Present Physical Exam General: no acute distress HEENT: extra-occular movements intact, moist mucous membranes Heart: regular rate and rhythm, no rubs/murmurs/gallops Lungs: clear to auscultation bilaterally, no wheezing/crackles Abdomen: gravid, soft, non-tender Extremities: non-tender bilaterally, moderate edema bilaterally Cervical Exam Dilation (cm): 0.5 Effacement: 0 Station: -3 Pelvimetry: Diagonal conjugate reached: No Ischial Spines prominent: No Suprapubic arch, narrow: No Pelvic sidewalls divergent: No Gynecoid pelvis: Yes Bedside ultrasound: Presentation: vertex Placenta: anterior Current Lab Review: Hospital Encounter on 05/07/19 CBC W AUTO DIFFERENTIAL Result Value Ref Range WBC 10.0 4.4 - 10.7 x10E9/L WBC Corrected RBC 3.90 3.80 - 5.20 x10E12/L Hemoglobin 11.8 (L) 12.0 - 15.6 gm/dL Hematocrit 36.1 35.9 - 45.5 % MCV 92.6 80.7 - 98.3 fl MCH 30.3 26.7 - 34.0 pg MCHC 32.7 30.8 - 35.9 gm/dL Platelet Count 221 153 - 416 x10E9/L RDW-CV 12.5 12.1 - 14.9 % MPV 11.5 9.4 - 12.9 fl Neutrophils % 70.1 44.0 - 73.0 % Lymphocytes % 22.2 20.0 - 43.0 % Monocytes % 6.4 5.0 - 13.0 % Eosinophils % 0.7 0.0 - 6.0 % Basophils % 0.2 0.0 - 2.0 % Immature Granulocytes 0.4 0 - 1 % Neutrophil Absolute 6.97 2.01 - 7.14 x10E9/L Lymphocytes Absolute 2.21 1.07 - 3.94 x10E9/L Monocytes Absolute 0.64 0.26 - 1.07 x10E9/L Eosinophils Absolute 0.07 0 - 0.47 x10E9/L Basophils Absolute 0.02 0 - 0.08 x10E9/L Immature Granulocytes Absolute 0.04 0.00 - 0.06 x10E9/L nRBC Auto 0 /100 WBC labs will request if admit Blood type: A+ Rubella: immune Hep B surface antigen:non-reactive RPR: non-reactive HIV:Negative GBS: Positive Assessment/Plan: 28 year old at 39w1d gestation 1. Induction of labor for oligohydramnios 1. Oligohydramnios 2. Cervix 0.5/0/-3 3. Membranes intact 4. GBS positive 1. Patient has penicillin allergy 2. Will proceed with cephalosporin 5. Admit to L&D 6. Patient desires Epidural 7. Bishops's Score I have discussed with the patient the possibility of a prolonged induction and the use of several induction agents. We discussed that typically latent labor and cervical ripening is generally the longest portion of labor. We reviewed the various medications used for induction and that artificial rupture of membranes may be used to augment the labor process. I discussed with the patient that at this time the tracing remains reassuring though there are various types of decelerations in the heart rate which can happen during labor. We reviewed that at various times we may ask her to change her position in bed, wear oxygen, or other maneuvers to help improve the heart rate and we will keep her informed of any concerning developments. I also discussed the slightly higher need to convert to section compared with spontaneous labor. Discussed with the patient that though there is low suspicion for need for section at this time, we are always prepared for emergencies which may occur. Our goal is for the safest delivery for mother and baby. Should it appear that a section is the safest route at any point in her labor process, we will review this with her at that time. 2. Kyle's 7# 3. well being overall reassuring 4. PNL A+/Rubella imm/RPR NR/ HepB neg, HIV neg GBS positive 5. Plan: IOL with Cervidil. Followed by pitocin tomorrow morning. Ancef for GBS prophylaxis due to penicillin allergy. Discussed with Dr. Kelly and Dr. Isabela Levy MD 05/07/2019 5:20 PM Chart sent to me by mistake. This is not a patient of mine. Glenys Rice MD documented in this encounter Nursing Notes * Dedra Belle RN - 05/11/2019 1:50 PM CDT Met with Leti before her discharge today. She continues to exclusively breastfeed and denies any difficulty or discomfort with the latch. Observed her independently latch baby using good technique. Gave her a diaper diary and reviewed expected/necessary feeding frequency and duration, as well as expected/necessary urine and stool output from baby in the first week. She verbalizes understanding of all and denies any further questions. Informed her of weekly support group, and gave her phone number for office to call for questions or assistance as needed. Dedra Belle DNP, RN, IBCLC * Velia Osei RN - 05/10/2019 12:10 PM CDT Leti continues to exclusively breastfeed. Reports cluster fed overnight. Leti statesnipples are tender (R worse than L). R nipple noted to have compression stripe. Assisted Leti with positioning and attachment with her consent. Positioned infant in cross-cradle to R breast. Reviewed proper positioning and latch techniques. Leti independently latched infant without difficulty. Infant demonstrated coordinated bursts of sucking and occasional audible swallows. States this latch is much more comfortable. Provided her with lanolin and hydrogel dressings and discussed nipplecare. Reviewed normal behaviors/feeding patterns to expect on the second night. Encouraged she rest today when infant is sleeping as she will likely cluster feed again tonight. Leti states quickly gets fussy and is sometimes difficult to latch. Discussed observing for early feeding cues and consoling techniques. She verbalizes understanding, denies further questions/concerns. LC number remains on white board, encouraged to call for assistance as needed. Velia Osei, RIAN, RN, IBCLC * Velia Osei RN - 05/09/2019 11:50 AM CDT Consult: Leti is a first time mom. She has exclusively breast fed so far. UZMA assistedmother with positioning and attachment with mother's consent. Leti has average sized breasts. Breasts somewhat firm. Nipples are evelin but short. Demonstrated hand expression, small drop of colostrum expressed. Infant alert and rooting. Positioned [id number] in football hold to R breast. Revie wed proper positioning and latch techniques. After several attempts infant demonstrated areolar grasp, coordinated bursts of sucking, and occasional audible swallows. Pointed out signs of a good latch and swallowing to mother. She states latch is comfortable. Reviewed what to expect from normal behavior, including sleepiness and cluster feeding. Encouraged mother to watch for infants hunger cues and feed on demand. Discussed the benefits of frequent [id number] contact and hand expression. Educated on the importance of a deep, comfortable latch to prevent nipple soreness and ensure adequate milk transfer. Referred to Mother Baby Care booklet with written material on breastfeedingfor mother to review while here. Encouraged her to avoid pacifier/artificial nipple use and unnecessary formula supplementation for the first 3-4 weeks, so baby can learn to breastfeed and she can begin to establish an adequate milk supply. LC number placed on white board, encouraged to call for assistance as needed. Velia Osei, MSN, RN, IBCLC documented in this encounter Plan of Treatment Not on file documented as of this encounter Procedures Procedure Name Priority Date/Time Associated Diagnosis Comments IMAGING/RADIOLOGY/XRA Y RESULTS ORDER 05/13/2019 9:06 PM CDT CBC W AUTO DIFFERENTIAL AM Draw 05/10/2019 5:00 AM CDT GLUCOSE - POINT OF CARE Routine 05/09/2019 10:18 PM CDT PATHOLOGY TISSUE EXAM (STL) Routine 05/09/2019 1:18 AM CDT Encounter for induction of labor (HCC) BLOOD GASES CORD MARQUES (ISTAT) Routine 05/09/2019 12:13 AM CDT BLOOD TYPE VERIFICATION Routine 05/07/2019 6:04 PM CDT TYPE + SCREEN PANEL STAT 05/07/2019 4 :52 PM CDT CBC W AUTO DIFFERENTIAL STAT 05/07/2019 4:52 PM CDT documented in this encounter Results * IMAGING/RADIOLOGY/XRAY RESULTS ORDER (05/13/2019 9:06 PM CDT) Anatomical Region Laterality Modality Other Narrative 05/13/2019 9:06 PM CDT Ordered by an unspecified provider. Scanned Document IMAGING * (ABNORMAL) CBC W AUTO DIFFERENTIAL (05/10/2019 5:00 AM CDT) WBC 11.0(H) 4.4 - 10.7 x10E9/L 05/10/2019 5:38 AM CDT [facility] WBC Corrected 05/10/2019 5:38 AM CDT [facility] RBC 2.92(L) 3.80 - 5.20 x10E12/L 05/10/2019 5:38 AM CDT [facility] Hemoglobin 8.9(L) 12.0 - 15.6 gm/dL 05/10/2019 5:38 AM CDT [facility] Hematocrit 27.7(L) 35.9 - 45.5 % 05/10/2019 5:38 AM CDT [facility] MCV 94.9 80.7 - 98.3 fl 05/10/2019 5:38 AM CDT [facility] MCH 30.5 26.7 - 34.0 pg 05/10/2019 5:38 AM CDT [facility] MCHC 32.1 30.8 - 35.9 gm/dL 05/10/2019 5:38 AM CDT [facility] Platelet Count 152(L) 153 - 416 x10E9/L 05/10/2019 5:38 AM CDT [facility] RDW-CV 12.9 12.1 - 14.9 % 05/10/2019 5:38 AM CDT [facility] MPV 11.7 9.4 - 12.9 fl 05/10/2019 5:38 AM CDT [facility] Neutrophils % 58.0 44.0 - 73.0 % 05/10/2019 5:38 AM CDT [facility] Lymphocytes % 31.4 20.0 - 43.0 % 05/10/2019 5:38 AM CDT [facility] Monocytes % 8.3 5.0 - 13.0 % 05/10/2019 5:38 AM CDT [facility] Eosinophils % 1.4 0.0 - 6.0 % 05/10/2019 5:38 AM CDT [facility] Basophils % 0.3 0.0 - 2.0 % 05/10/2019 5:38 AM CDT [facility] Immature Granulocytes 0.6 0 - 1 % 05/10/2019 5:38 AM CDT [facility] Neutrophil Absolute 6.37 2.01 - 7.14 x10E9/L 05/10/2019 5:38 AM CDT [facility] Lymphocytes Absolute 3.45 1.07 - 3.94 x10E9/L 05/10/2019 5:38 AM CDT [facility] Monocytes Absolute 0.91 0.26 - 1.07 x10E9/L 05/10/2019 5:38 AM CDT [facility] Eosinophils Absolute 0.15 0 - 0.47 x10E9/L 05/10/2019 5:38 AM CDT [facility] Basophils Absolute 0.03 0 - 0.08 x10E9/L 05/10/2019 5:38 AM CDT [facility] Immature Granulocytes Absolute 0.07(H) 0.00 - 0.06 x10E9/L 05/10/2019 5:38 AM CDT [facility] nRBC Auto 0 /100 WBC 05/10/2019 5:38 AM CDT [facility] Blood BLOOD SPECIMEN / Unknown Lab Venipuncture / Unknown 05/10/2019 5:00 AM CDT 05/10/2019 5:27 AM CDT Karen Patel MD LAB - HEMATOLOGY ORD ERABLES [facility] [address] [place] [address] * GLUCOSE - POINT OF CARE (05/09/2019 10:18 PM CDT) [facility] Glucose WB/POC 89 70 - 106 mg/dL 05/10/2019 12:04 AM CDT [facility] Specimen Type Arterial/C apillary 05/10/2019 12:04 AM CDT [facility] Blood BLOOD SPECIMEN / Unknown 05/09/2019 10:18 PM CDT 05/10/2019 12:04 AM CDT Rey Mar MD LAB - POINT OF CARE ORDERABLES Performing Organization Address City/State/[facility] Co de Phone Number [facility] [address] [place] [address] * GROSS + MICRO EXAM (STL) (05/09/2019 1:18 AM CDT) [facility] Case Report Surgical Pathology Report ? Case: [id number] ? Authorizing Provider: ??Karen Patel MD ?Collected: ? 05/09/2019 01:18 AM ? Ordering Location: ? [facility] LDR ? Received: ?05/10/2019 06:40 AM ? Pathologist: ? Ruth Martinez MD ? Specimen: ?Placenta ? 05/14/2019 1:58 PM [facility] Final Diagnosis Umbilical cord, vaginal delivery: - Three-vessel cord with no significant histopathologic abnormality membranes, vaginal delivery: - No significant histopathologic abnormality Placenta, vaginal delivery: - Third trimester placenta with mature villous morphology - Placental weight small for gestational age (390 g) - -placental ratio 90%ile for gestational age KES/ns 05/14/2019 1:58 PM [facility] Clinical History The patient is a 28-year-old woman who presents at 39 weeks and 3 days of gestation with oligohydramnios with vaginal delivery of a viable female with Apgars of 9 and 9, weighing 3315 g. 05/14/2019 1:58 PM [facility] Gross Description The specimen is identified with patient's name Leti Soto. Received in formalin, specimen A, placenta consists of a riddle discoid placenta with attached membranes and umbilical [...] spongy parenchyma. No gross lesions are identified. Yarn Examiner sections are submitted as follows: A1 - Umbilical cord and membranes A2 and A3 - Placental disc. ED/scs 05/14/2019 1:58 PM [facility] Microscopic Description Microscopic examination substantiates the final diagnosis. KEMaria T/re 05/14/2019 1:58 PM [facility] Disclaimer All histochemical and/or immunohistochemical results are interpreted with controls that demonstrate appropriate staining reactions before reporting results. Note on use of immunocytochemistry reagents: This test was developed and its performance characteristic determined by [facility], Department of Laboratory Medicine. It has not been cleared or approved by the U.S. Food and Drug Administration (FDA). The FDA has determined that such clearance or approval is not necessary. The test is used for clinical purpose. It should not be regarded as investigational or for research. This laboratory is certified to perform high complexity testing. 05/14/2019 1:58 PM CDT [facility] Embedded Images 05/14/2019 1:58 PM CDT [facility] Pathology/Cytolo gy ENTIRE PLACENTA / Unknown Collection / Unknown 05/09/2019 1:18 AM CDT 05/10/2019 6:40 AM CDT Karen Patel MD LAB - PATHOLOGY/CYTO LOGY ORDERABLES Performing Organization Address City/State/[facility] Co de Phone Number [facility] [address] [place] [address] * (ABNORMAL) BLOOD GASES CORD MARQUES (ISTAT) (05/09/2019 12:13 AM CDT) pH Cord Venous POCT 7.37 7.28 - 7.40 pH 05/09/2019 12:20 AM [facility] pCO2 Cord Venous POCT 33(L) 35 - 45 mm hg 05/09/2019 12:20 AM [facility] pO2 Cord Venous POCT 22 22 - 33 mm hg 05/09/2019 12:20 AM [facility] HCO3 Cord Arterial POCT 19.0(L) 22 - 24 mmol/L 05/09/2019 12:20 AM [facility] BE Cord Venous POCT Calc -5 -6.4 - 1.6 mmol/L 05/09/2019 12:20 AM [facility] TCO2 Cord Venous POCT 20(L) 22 - 30 mmol/L 05/09/2019 12:20 AM [facility] O2 Saturation % Cord Venous Calc POCT 37 % 05/09/2019 12:20 AM T [facility] Site CORD MARQEUS 05/09/2019 12:20 AM T [facility] Sample iSTAT CORD V 05/09/2019 12:20 AM CDT [facility] Blood CORD BLOOD SPECIMEN / Unknown 05/09/2019 12:13 AM CDT 05/09/2019 12:20 AM CDT Rey Mar MD LAB - POINT OF CARE ORDERABLES Performing Organization Address [facility] Co de Phone Number [facility] [address] [place] [address] * BLOOD TYPE VERIFICATION (05/07/2019 6:04 PM CDT) Pathologist [facility] ABO A 05/07/2019 6:43 PM CDT [facility] Rh Type Positive 05/07/2019 6:43 PM CDT [facility] Blood Bank BLOOD SPECIMEN / Unknown Venipuncture / Unknown 05/07/2019 6:04 PM CDT 05/07/2019 6:11 PM CDT Rey Mar MD LAB - BLOOD BANK ORD ERABLES Performing Organization Address [facility] de Phone Number [facility] [address] [place] [address] * (ABNORMAL) CBC W AUTO DIFFERENTIAL (05/07/2019 4:52 PM CDT) [facility] WBC 10.0 4.4 - 10.7 x10E9/L 05/07/2019 5:06 PM CDT [facility] WBC Corrected 05/07/2019 5:06 PM CDT [facility] RBC 3.90 3.80 - 5.20 x10E12/L 05/07/2019 5:06 PM CDT [facility] Hemoglobin 11.8(L) 12.0 - 15.6 gm/dL 05/07/2019 5:06 PM CDT [facility] Hematocrit 36.1 35.9 - 45.5 % 05/07/2019 5:06 PM CDT [facility] MCV 92.6 80.7 - 98.3 fl 05/07/2019 5:06 PM CDT [facility] MCH 30.3 26.7 - 34.0 pg 05/07/2019 5:06 PM CDT [facility] MCHC 32.7 30.8 - 35.9 gm/dL 05/07/2019 5:06 PM [facility] Platelet Count 221 153 - 416 x10E9/L 05/07/2019 5:06 PM [facility] RDW-CV 12.5 12.1 - 14.9 % 05/07/2019 5:06 PM [facility] MPV 11.5 9.4 - 12.9 fl 05/07/2019 5:06 PM [facility] Neutrophils % 70.1 44.0 - 73.0 % 05/07/2019 5:06 PM [facility] Lymphocytes % 22.2 20.0 - 43.0 % 05/07/2019 5:06 PM [facility] Monocytes % 6.4 5.0 - 13.0 % 05/07/2019 5:06 PM [facility] Eosinophils % 0.7 0.0 - 6.0 % 05/07/2019 5:06 PM [facility] Basophils % 0.2 0.0 - 2.0 % 05/07/2019 5:06 PM [facility] Immature Granulocytes 0.4 0 - 1 % 05/07/2019 5:06 PM [facility] Neutrophil Absolute 6.97 2.01 - 7.14 x10E9/L 05/07/2019 5:06 PM [facility] Lymphocytes Absolute 2.21 1.07 - 3.94 x10E9/L 05/07/2019 5:06 PM [facility] Monocytes Absolute 0.64 0.26 - 1.07 x10E9/L 05/07/2019 5:06 PM [facility] Eosinophils Absolute 0.07 0 - 0.47 x10E9/L 05/07/2019 5:06 PM [facility] Basophils Absolute 0.02 0 - 0.08 x10E9/L 05/07/2019 5:06 PM [facility] Immature Granulocytes Absolute 0.04 0.00 - 0.06 x10E9/L 05/07/2019 5:06 PM [facility] nRBC Auto 0 /100 WBC 05/07/2019 5:06 PM [facility] Blood BLOOD SPECIMEN / Unknown Venipuncture / Unknown 05/07/2019 4:52 PM CDT 05/07/2019 5:02 PM CDT Coby Levy MD LAB - HEMATOLOGY ORD KENYONBLES Performing Organization Address City/[facility]/ZIP Co de Phone Number [facility] [address] [place] [address] * TYPE + SCREEN PANEL (05/07/2019 4:52 PM CDT) ABO A 05/07/2019 5:32 PM CDT [facility] Rh Type Positive 05/07/2019 5:32 PM CDT [facility] Comment:History checked. Col lect retype. Antibody Screen Negative 05/07/2019 5:32 PM CDT [facility] Blood Bank BLOOD SPECIMEN / Unknown Venipuncture / Unknown 05/07/2019 4:52 PM CDT 05/07/2019 5:02 PM CDT Coby Levy MD LAB - BLOOD BANK ORD KENYONBLES Performing Organization Address [facility] Co de Phone Number [facility] [address] [place], [place] [id number] [place] [address] documented in this encounter Visit Diagnoses Diagnosis Encounter for induction of labor (HCC)- Primary Encounter for induction of labor (HCC) documented in this encounter Administered Medications Inactive Administered Medications - up to 3 most recent administrations Medication Order MAR Action Action Date Dose Rate Site *Hold/Avoid Anticoagulants and Antiplatelet agents EVERY 12 HOURS ( and ), 730 doses, First dose on Mon05/08/19 at 1400, Last dose on Mon05/06/20 at 2000, SPINAL/EPIDURAL ANTIPLATELET/ANTICOAGULANT PRECAUTIONS: Hold/avoid antiplatelet agents. Give NO anticoagulants in the first 4 hours after spinal analgesia or epidural catheter placement or removal. If an epidural catheter is in place and has been in place for 4 or more hours, prophylactic doses of anticoagulants (enoxaparin 30mg or 40mg once daily or subcutaneous heparin 5,000 units twice daily) may be given. 0.9% NaCl injection 3 mL 3 mL, Intracatheter, EVERY 8 HOURS, 1095 doses, First dose on Mon05/07/19 at 1715, Last dose on Mon05/06/20 at 0600, Flush peripheral IV catheter with 3 mL of normal saline every 8 hours. $ Given 05/09/2019 4:38 AM CDT 3 mL $ Given 05/07/2019 5:50 PM CDT 3 mL benzocaine-menthol (DERMOPLAST) spray Topical, PRN, Mild Pain, Starting on Rebecca 05/09/19 at 1006, Until 05/11/19 at 1518, Apply to affected area. . WASTE DISPOSAL INSTRUCTION: Send to Pharmacy for Disposal. . , $ Given 05/11/2019 11:05 AM CDT $ Given 05/11/2019 2:18 AM CDT $ Given 05/09/2019 10:56 AM CDT ceFAZolin (ANCEF) 1 g in 0.9% NaCl 50 mL IVPB 1 g, at 100 mL/hr, Intravenous, EVERY 8 HOURS, 21 doses, First dose on Mon05/08/19 at 0215, Last dose on Mon05/14/19 at 1815, Indication for anti-infective therapy: Suspected infection, Site of anti-infective therapy: Other, Other site of infection (free text): GBS Prophylaxis $ New Bag/Syringe 05/08/2019 6:50 PM CDT 1 g 100 mL/hr $ New Bag/Syringe 05/08/2019 10:22 AM CDT 1 g 100 m L/hr $ New Bag/Syringe 05/08/2019 2:36 AM CDT 1 g 100 mL /hr ceFAZolin (ANCEF) 2,000 mg in 50 mL IVPB 2,000 mg (2 g), at 100 mL/hr, Intravenous, ONCE, 1 dose, On Mon05/07/19 at 1815, Refrigerate, Indication for anti-infective therapy: Suspected infection, Site of anti-infective therapy: Other, Other site of infection (free text): GBS Prophylaxis $ New Bag/Syringe 05/07/2019 6:16 PM CDT 2,000 mg 100 mL/hr dinoprostone (CERVIDIL) vaginal insert 10 mg 10 mg, Vaginal, ONCE, 1 dose, On Mon05/07/19 at 1700, Place in vagina. Patient to be on bedrest for 2 hours. Remove if tachy systole, ROM, and NRFHR pattern. $ Given 05/07/2019 4:53 PM CDT 10 mg diphenhydrAMINE (BENADRYL) injection 25 mg 25 mg, Intravenous, EVERY 4 HOURS PRN, Itching, Starting on Mon05/08/19 at 1421, Until Mon05/11/19 at 1518, PRN for itching. Maximum dose is 50mg/4hours. Maximum intravenous rate = 25 mg/min. docusate sodium (COLACE) capsule 100 mg 100 mg, Oral, 2 TIMES DAILY, 730 doses, First dose on Mon05/09/19 at 1015, Last dose on Mon05/07/20 at 2100, $ Given 05/11/2019 9:02 AM CDT 100 mg $ Given 05/10/2019 9:04 PM CDT 100 mg $ Given 05/10/2019 8:53 AM CDT 100 mg famotidine (PEPCID) injection 20 mg 20 mg, Intravenous, ONCE, 1 dose, On Mon05/08/19 at 1845, Dilute 2 mL of injection with 0.9% NaCl or D5W solution to a volume of 5 to 10 ml. Push over a period of at least 2 minutes. Dilute 2 mL of injection with 0.9% NaCl or D5W solution to a volume of 5 to 10 ml. Push over a period of at least 2 minutes. $ Given 05/08/2019 6:51 PM CDT 20 mg famotidine (PEPCID) tablet 20 mg 20 mg, Oral, 2 TIMES DAILY, 730 doses, First dose on Mon05/09/19 at 1015, Last dose on Mon05/07/20 at 2100, $ Given 05/10/2019 9:04 PM CDT 20 m g $ Given 05/10/2019 8:53 AM CDT 20 mg $ Given 05/09/2019 8:51 PM CDT 20 mg fentaNYL (PF) (SUBLIMAZE) injection 100 mcg 100 mcg, Intravenous, ONCE, 1 dose, On Mon05/08/19 at 1130 $ Given 05/08/2019 11:16 AM CDT 100 mcg ibuprofen (MOTRIN) tablet 600 mg 600 mg, Oral, EVERY 6 HOURS, First dose on Mon05/09/19 at 0245, Until Discontinued, Maximum allowable amount = 3200 mg / 24 hours., $ Given 05/11/2019 11:05 AM CDT 600 mg $ Given 05/11/2019 3:20 AM CDT 600 mg $ Given 05/10/2019 9:04 PM CDT 600 mg iron polysaccharides (NIFEREX 150) capsule 150 mg 150 mg, Oral, DAILY, 365 doses, First dose on Mon05/09/19 at 1015, Last dose on Mon05/07/20 at 0900, $ Given 05/11/2019 9:02 AM CDT 150 mg $ Given 05/10/2019 8:53 AM CDT 150 mg $ Given 05/09/2019 10:56 AM CDT 150 mg lactated ringers infusion at 125 mL/hr, Intravenous, CONTINUOUS, Starting on Mon05/07/19 at 1715, Until Mon05/09/19 at 1006, Start IV with 18 gauge angiocath. Rate Change 05/08/2019 9:45 PM CDT 125 mL/hr Rate Change 05/08/2019 9:17 PM CDT 999 mL/hr $ New Bag/Syringe 05/08/2019 8:44 PM CDT 125 mL /hr lanolin ointment Topical, PRN, Sore or cracked nipples., Starting on Mon05/09/19 at 1006, Until Mon05/11/19 at 1518, Apply purified Lanolin to sore or cracked nipples, if needed. May keep at bedside., $ Given 05/11/2019 11:05 AM CDT metoclopramide (REGLAN) injection 5 mg 5 mg, Intravenous, EVERY 6 HOURS PRN, Nausea/Vomiting, Starting on Mon05/07/19 at 1632, Until Mon05/11/19 at 1518, If no relief from ondansetron (ZOFRAN) or prochlorperazine (COMPAZINE), use metoclopramide (REGLAN) in addition to ondansetron and prochlorperazine. naloxone (NARCAN) injection 0.2 mg 0.2 mg, Intravenous, EVERY 5 MIN PRN, Other, For respiratory rate less than 8/min., Starting on Mon05/08/19 at 1354, Until Mon05/11/19 at 1518, Give 0.2 mg IV every 5 minutes for respirations less than 8 per minute (maximum 2 mg total dose) ondansetron (ZOFRAN) injection 4 mg 4 mg, Intravenous, EVERY 6 HOURS PRN, Nausea/Vomiting, Starting on Mon05/07/19 at 1632, Until 05/11/19 at 1518, Administer IV if patient is NPO, actively vomiting, or unable to swallow. oxytocin (PITOCIN) 30 units in 500 mL 0.9% sodium chloride infusion 100-999 donato-units/min (100-999 mL/hr), Intravenous, CONTINUOUS PRN, post-, Starting on Mon05/07/19 at 1632, Until Rebecca 05/09/19 at 0431, Total infusion 4 hours Initiate infusion POST-DELIVERY at 999 donato-units/min for 30 min, then decrease rate to 100 donato-units/min for 3.5 hours. ADMINISTER AFTER THE ANTERIOR SHOULDER OR WITH DELIVERY OF THE PLACENTA. Rate Change 05/09/2019 4:30 AM CDT 125 donato-units/min 5 mL/hr Current Rate 05/09/2019 2:58 AM CDT 125 donato-units/min 12 5 mL/hr $ New Bag/Syringe 05/09/2019 12:17 AM CDT 125 donato-units/ min 125 mL/hr oxytocin (PITOCIN) 30 units in 500 mL 0.9% sodium chloride infusion 0-20 donato-units/min (0-20 mL/hr), Intravenous, CONTINUOUS, Starting on Mon05/08/19 at 0600, Until Rebecca 05/09/19 at 1006, Titration Parameters: Standard Dose, Indication: Induction/Augmentation of labor, Initiate infusion at: 2 donato-units/min, Titrate infusion by: 2 donato-units/min, Titrate every: 30 minutes, To maintain: May increase or decrease infusion to maintain contractions 2-3 minutes apart in the presence of reassuring heart tracing, but not to exceed 5 contractions in 10 minutes or exceed max infusion rate., Decrease Oxytocin rate: May decrease Oxytocin by half current dose in the presence of uterine tachysystole (greater than 5 contractions in 10 minutes) and notify provider. May decrease oxytocin by half current dose at the time of rupture of membranes once verified with provider, Discontinue Oxytocin infusion: Discontinue oxytocin immediately for abnormal or indeterminate status, and notify provider. Rate Change 05/08/2019 11:41 PM CDT 8 donato-units/min 8 mL/hr Rate Change 05/08/2019 11:10 PM CDT 6 donato-units/min 6 mL /hr Rate Change 05/08/2019 10:36 PM CDT 4 donato-units/min 4 mL /hr vitamin with iron tablet 1 tablet 1 tablet, Oral, DAILY, 365 doses, First dose on Rebecca 05/09/19 at 1015, Last dose on Mon05/07/20 at 0900, $ Given 05/11/2019 9:02 AM CDT 1 tablet $ Given 05/10/2019 8:53 AM CDT 1 tablet $ Given 05/09/2019 10:56 AM CDT 1 tablet prochlorperazine (COMPAZINE) injection 5 mg 5 mg, Intravenous, EVERY 6 HOURS PRN, Nausea/Vomiting, Starting on Mon05/07/19 at 1632, Until 05/11/19 at 1518, If no relief from ondansetron (ZOFRAN), use prochlorperazine (COMPAZINE) in addition to ondansetron. prochlorperazine (COMPAZINE) injection 5 mg 5 mg, Intramuscular, EVERY 6 HOURS PRN, Nausea/Vomiting, Starting on Mon05/07/19 at 1632, Until 05/11/19 at 1518, If no relief from ondansetron (ZOFRAN), use prochlorperazine (COMPAZINE) in addition to ondansetron. Use IM route if IV is unavailable. documented in this encounter Active and Recently Administered Medications Times are shown in CDT. Scheduled Medication Order 05/09/2019 05/10/2019 05/11/2019 *Hold/Avoid Anticoagulants and Antiplatelet agents EVERY 12 HOURS ( and ), 730 doses, First dose on Mon05/08/19 at 1400, Last dose on Mon05/06/20 at 2000, SPINAL/EPIDURAL ANTIPLATELET/ANTICOAGULA NT PRECAUTIONS: Hold/avoid antiplatelet agents. Give NO anticoagulants in the first 4 hours after spinal analgesia or epidural catheter placement or removal. If an epidural catheter is in place and has been in place for 4 or more hours, prophylactic doses of anticoagulants (enoxaparin 30mg or 40mg once daily or subcutaneous heparin 5,000 units twice daily) may be given. 0737 (*Reviewed - Provider: Laura Farr RN)491 (*Reviewed - Provider: Dodie Kline RN) 0739 (*Reviewed - Provider: Laura Farr RN)1858 (*Reviewed - Provider: Jeannette Carranza) 0902 (*Reviewed - Provider: Ling Fortune, AIDE) 0.9% NaCl injection 3 mL (CANCELED)(Linked Group 1) 3 mL, Intracatheter, EVERY 8 HOURS, 1095 doses, First dose on Mon05/07/19 at 1715, Last dose on Mon05/06/20 at 0600, Flush peripheral IV catheter with 3 mL of normal saline every 8 hours. 0438 ($ Given - Provider: Dodie Kline RN)1437 (Not Administered - Provider: Laura Farr RN - Reason: Loss of Access) docusate sodium (COLACE) capsule 100 mg 100 mg, Oral, 2 TIMES DAILY, 730 doses, First dose on Rebecca 05/09/19 at 1015, Last dose on Mon05/07/20 at 2100, 1056 ($ Given - Provider: Laura Farr RN)2051 ($ Given - Provider: Dodie Kline RN) 0853 ($ Given - Provider: Laura Farr RN)2104 ($ Given - Provider: Jeannette Carranza) 0902 ($ Given - Provider: Ling Fortune, AIDE) famotidine (PEPCID) tablet 20 mg 20 mg, Oral, 2 TIMES DAILY, 730 doses, First dose on Mon05/09/19 at 1015, Last dose on Mon05/07/20 at 2100, 1056 ($ Given - Provider: Laura Farr RN)205 ($ Given - Provider: Dodie Kline RN) 0853 ($ Given - Provider: Laura Farr RN)2104 ($ Given - Provider: Jeannette Carranza) 0902 (Not Administered - Provider: Ling Fortune, AIDE - Reason: Refused-Patient) ibuprofen (MOTRIN) tablet 600 mg 600 mg, Oral, EVERY 6 HOURS, First dose on Rebecca 05/09/19 at 0245, Until Discontinued, Maximum allowable amount = 3200 mg / 24 hours., 0243 ($ Given - Provider: Veda Marsh RN)0833 ($ Given - Provider: Yvette Wolfe RN)1436 ($ Given - Provider: Laura Farr RN)2051 ($ Given - Provider: Dodie Kilne, AIDE) 0234 ($ Given - Provider: Dodie Kline, AIDE)0853 ($ Given - Provider: Laura Farr RN)1455 ($ Given - Provider: Laura Farr RN)2104 ($ Given - Provider: Jeannette Carranza) 0320 ($ Given - Provider: Dodie Kline, AIDE)0902 (Not Administered - Provider: Ling Fortune RN - Reason: Refused-Patient)1105 ($ Given - Provider: Ling Fortune, AIDE) iron polysaccharides (NIFEREX 150) capsule 150 mg 150 mg, Oral, DAILY, 365 doses, First dose on Rebecca 05/09/19 at 1015, Last dose on Rebecca 05/07/20 at 0900, 1056 ($ Given - Provider: Laura Farr RN) 0853 ($ Given - Provider: Laura Farr RN) 0902 ($ Given - Provider: Ling Fortune, AIDE) vitamin with iron tablet 1 tablet 1 tablet, Oral, DAILY, 365 doses, First dose on Rebecca 05/09/19 at 1015, Last dose on Rebecca 05/07/20 at 0900, 1056 ($ Given - Provider: Laura Farr RN) 0853 ($ Given - Provider: Laura Farr RN) 0902 ($ Given - Provider: Ling Fortune, AIDE) PRN Medication Order 05/09/2019 05/10/2019 05/11/2019 acetaminophen (TYLENOL) tablet 650 mg 650 mg, Oral, EVERY 6 HOURS PRN, Mild Pain, Starting on Rebecca 05/09/19 at 1006, Until 05/11/19 at 1518, benzocaine-menthol (DERMOPLAST) spray Topical, PRN, Mild Pain, Starting on Rebecca 05/09/19 at 1006, Until 05/11/19 at 1518, Apply to affected area. . WASTE DISPOSAL INSTRUCTION: Send to Pharmacy for Disposal. . , 1056 ($ Given - Provider: Laura Farr, RN) 0218 ($ Given - Provider: Dodie Kline RN)1105 ($ Given - Provider: Ling Fortune, RN) diphenhydrAMINE (BENADRYL) capsule 25 mg 25 mg, Oral, AT BEDTIME PRN, Insomnia, Starting on Rebecca 05/09/19 at 1006, Until 05/11/19 at 1518, diphenhydrAMINE (BENADRYL) capsule 25 mg 25 mg, Oral, EVERY 6 HOURS PRN, Itching, Starting on Rebecca 05/09/19 at 1006, Until 05/11/19 at 1518, diphenhydrAMINE (BENADRYL) injection 25 mg 25 mg, Intravenous, EVERY 4 HOURS PRN, Itching, Starting on Mon05/08/19 at 1421, Until 05/11/19 at 1518, PRN for itching. Maximum dose is 50mg/4hours. Maximum intravenous rate = 25 mg/min. hemorrhoidal (PREPARATION H) ointment OINT Rectal, 3 TIMES DAILY PRN, Hemorrhoids, Starting on Rebecca 05/09/19 at 1006, Until 05/11/19 at 1518, lanolin ointment Topical, PRN, Sore or cracked nipples., Starting on Rebecca 05/09/19 at 1006, Until 05/11/19 at 1518, Apply purified Lanolin to sore or cracked nipples, if needed. May keep at bedside., 1105 ($ Given - Provider: Ling Fortune, AIDE) metoclopramide (REGLAN) injection 5 mg 5 mg, Intravenous, EVERY 6 HOURS PRN, Nausea/Vomiting, Starting on Mon05/07/19 at 1632, Until 05/11/19 at 1518, If no relief from ondansetron (ZOFRAN) or prochlorperazine (COMPAZINE), use metoclopramide (REGLAN) in addition to ondansetron and prochlorperazine. naloxone (NARCAN) injection 0.2 mg 0.2 mg, Intravenous, EVERY 5 MIN PRN, Other, For respiratory rate less than 8/min., Starting on Mon05/08/19 at 1354, Until 05/11/19 at 1518, Give 0.2 mg IV every 5 minutes for respirations less than 8 per minute (maximum 2 mg total dose) ondansetron (disintegrating) (ZOFRAN ODT) tablet 4 mg 4 mg, Oral, EVERY 6 HOURS PRN, Nausea/Vomiting, Starting on Rebecca 05/09/19 at 1006, Until 05/11/19 at 1518, Allow tablet to dissolve on the tongue, ondansetron (ZOFRAN) injection 4 mg 4 mg, Intravenous, EVERY 6 HOURS PRN, Nausea/Vomiting, Starting on Mon05/07/19 at 1632, Until 05/11/19 at 1518, Administer IV if patient is NPO, actively vomiting, or unable to swallow. oxytocin (PITOCIN) 30 units in 500 mL 0.9% sodium chloride infusion () 100-999 donato-units/min (100-999 mL/hr), Intravenous, CONTINUOUS PRN, post-, Starting on Mon05/07/19 at 1632, Until Rebecca 05/09/19 at 0431, Total infusion 4 hours Initiate infusion POST-DELIVERY at 999 donato-units/min for 30 min, then decrease rate to 100 donato-units/min for 3.5 hours. ADMINISTER AFTER THE ANTERIOR SHOULDER OR WITH DELIVERY OF THE PLACENTA. 0011 (Bolus Current Bag/Med - Provider: Veda Marsh RN)0017 ($ New Bag/Syringe - Provider: Veda Marsh RN)0258 (Current Rate - Provider: Dodie Kline RN)0430 (Rate Change - Provider: Dodie Kline, AIDE)0436 (Paused - Provider: Dodie Kline, AIDE) polyethylene glycol 3350 (MIRALAX) packet 17 g 17 g, Oral, DAILY PRN, Constipation, Starting on Rebecca 05/09/19 at 1006, Until 05/11/19 at 1518, Mix in 8 ounces of water, juice, soda, coffee or tea prior to administration, prochlorperazine (COMPAZINE) injection 5 mg 5 mg, Intravenous, EVERY 6 HOURS PRN, Nausea/Vomiting, Starting on Mon05/07/19 at 1632, Until 05/11/19 at 1518, If no relief from ondansetron (ZOFRAN), use prochlorperazine (COMPAZINE) in addition to ondansetron. prochlorperazine (COMPAZINE) injection 5 mg 5 mg, Intramuscular, EVERY 6 HOURS PRN, Nausea/Vomiting, Starting on Mon05/07/19 at 1632, Until 05/11/19 at 1518, If no relief from ondansetron (ZOFRAN), use prochlorperazine (COMPAZINE) in addition to ondansetron. Use IM route if IV is unavailable. simethicone (MYLICON) chew tablet 160 mg 160 mg, Oral, QID PRN (after meals and at bedtime), Gas Pain, Starting on Rebecca 05/09/19 at 1006, Until 05/11/19 at 1518, Linked Groups Order Group 1: SALINE LOCK, INSERT AND MAINTAIN (CANCELED) Routine, CONTINUOUS, Starting on Mon05/07/19 at 1645, Until Specified, New collection And 0.9% NaCl injection 3 mL (CANCELED)Jump to med 3 mL, Intracatheter, EVERY 8 HOURS, 1095 doses, First dose on Mon05/07/19 at 1715, Last dose on Mon05/06/20 at 0600, Flush peripheral IV catheter with 3 mL of normal saline every 8 hours. And 0.9% NaCl injection 1-10 mL (CANCELED) 1-10 mL, Intracatheter, PRN, Other, peripheral line flush, Starting on Mon05/07/19 at 1632, Until Rebecca 05/09/19 at 2018, Flush peripheral IV catheter with 1-10 mL of normal saline before and after medications and prn to clear blood from the line or to verify patency. documented in this encounter
--- OUTSIDE RECORDS SUMMARY | 2024-10-07 02:45 | XMS_ITS | Encounter Summary ---
Author Organization [facility] Address [address] [address] Care Team Providers Care Carpet Measurer Name Role Phone Crystal Cedeno Primary Care Provider [phone] Encounter Details Date Type Department Care Team (Latest Contact Info) Description 11/30/2022 12:00 PM CONSULTING SALES MANAGER Clinical Support [facility] Weight Management Services [address] [place], [place] [id number] Morbid obesity (HCC) Social History Tobacco Use [...] Coronavirus/COVID-19? No / Unsure 11/30/2022 11:41 AM CONSULTING SALES MANAGER documented as of this encounter Functional [...] as of this encounter Progress Notes * Velia Short RN - 12/01/2022 10:15 AM CST Patient has completed the educational class with the Jeramie, RN, Health Educator and/or another qualified S staff. Reviewed items include: 1. Surgical risk factors 2. Pre-operative high protein liquid diet and rationale reviewed 3. Reviewed topic of weight gain at pre op class visit and day of surgery: This may result in completing more dietary education, increasing the number of weeks for the high protein liquid diet, another consult with the surgeon, and /or surgery cancellation 4. Pre-operative bathing instructions with antibacterial wash as directed by SEC 5. Required items to bring with patient day of surgery 6. Pre-operative admission 7. Operating room process 8. Recovery room process 9. Post-operative care on the nursing floor 10. Discharge instruction for home care: ambulation, IS, activity level 11. Phase 1 - 6 diet discussed 12. Vitamin supplements 13. Follow up appointments scheduled- 1 week, 1 month, 6 month, and 1 year 14. Support group, Facebook and resources discussed 15. When to call the office, signs and symptoms of complications provided, and the numbers to call 16. Weight Management's Surgical Pre-operative Questionnaire reviewed discussed and collected 17. Weight Management's contract reviewed, signed, and collected 18. Information on Medic Alert bracelet discussed 19. Discussed causes of nausea, vomiting, and dumping 20. ENERGY protocol discussed and questions answered Surgery date and pre op diet reviewed individually with patient. Instructed to get [facility] Evaluation [facility] appointment as soon as possible, if not already completed- notified patient of failure to get labs could postpone surgery. Pt denies questions at this time. Pt is given contact information for [facility] Weight Management Services to call for any questions or concerns. Supplement samples offered ULTING SALES MANAGER documented in this encounter Plan of Treatment Not on file documented as of this encounter Visit Diagnoses Diagnosis Morbid obesity (HCC)- Primary Morbid obesity documented in this encounter Care Teams Carpet Measurer Relationship Specialty Start Date End Date VinceaurorasairaCrystal [facility] [place] [address] PCP - General Nurse Practitioner 10/24/22 documented as of this encounter
--- OUTSIDE RECORDS SUMMARY | 2024-10-07 02:45 | XMS_ITS | Encounter Summary ---
Author Organization [facility] Address [address] [place] [address] Care Team Providers Care Blower Room Attendant Name Role Phone Malena Munoz MD Primary Care Provider [phone] Encounter Details Date Type Department Care Team (Latest Contact Info) Description 06/29/2020 Travel Social History Tobacco Use Types Packs/Day [...] documented as of this encounter Care Teams Blower Room Attendant Relationship Specialty [place] [address] [address] PCP - General 07/17/19 01/22/21 documented as of this encounter
--- OUTSIDE RECORDS SUMMARY | 2024-10-07 02:45 | XMS_ITS | Encounter Summary ---
Author Organization [facility] Address [address] [facility] [address] Care Team Providers Care Awning Spreader Name Role Phone Malena Munoz MD Primary Care Provider [phone] Encounter Details Date Type Department Care Team (Late st Contact Info) Description 03/24/2020 9:00 AM CDT Office Visit [facility] Management Services [address] [place], [place] [id number] Morbid obesity (HCC) (Primary Dx) Social History [...] as of this encounter Progress Notes * Paty Garcia - 03/24/2020 2:36 PM CDT Class # of 4: free trial Topics Covered: 1. Habits a. How to change and how to create b. Panda Liu 2. Volume Eating a. Calorie Guide 3. Tips of having a healthy 28 of March 4. Weekly Challenge a. Get in at least 30 min of Physical Activity Monday. Monday, and Monday b. Replace 1 meal with a Protein Shake each day c. Get in at least 80 oz of water Mon, and Monday d. Have a great Holiday Weekend! documented in this encounter Plan of Treatment Not on file documented as of this encounter Visit Diagnoses Diagnosis Morbid obesity (HCC)- Primary Morbid obesity documented in this encounter Care Teams Awning Spreader Relationship Specialty [place] [address] [place] [address] PCP - General 07/17/19 01/22/21 documented as of this encounter
--- OUTSIDE RECORDS SUMMARY | 2024-10-07 02:45 | XMS_ITS | Encounter Summary ---
Author Organization [facility] Address [address] [place] [address] Care Team Providers Care Chief Enterprise Architect Name Role Phone Malena Munoz MD Primary Care Provider [phone] Encounter Details Date Type Department Care Team (Latest Contact Info) Description 12/09/2019 Travel Social History Tobacco Use Types Packs/Day [...] on filedocumented in this encounter Care Teams Chief Enterprise Architect Relationship Specialty [place] [address] [place] [address] PCP - General 07/17/19 01/22/21 documented as of this encounter
--- OUTSIDE RECORDS SUMMARY | 2024-10-07 02:45 | XMS_ITS | Encounter Summary ---
Author Organization [facility] Address [address] [place] [address] Care Team Providers Care Evs Tech Name Role Phone Malena Munoz MD Primary Care Provider [phone] Encounter Details Date Type Department Care Team (Latest Contact Info) Description 08/19/2020 Travel Social History Tobacco Use Types Packs/Day Years Used Date Smoking Tobacco: Never Assessed Sex and Gender Information Value Date Recorded Sex Assigned at Female 01/03/2022 5:41 PM CDT Gender Identity Female 01/03/2022 5:41 PM CDT Sexual Orientation Bisexual 01/03/2022 5: 41 PM CDT COVID-19 Exposure Response Date Recorded In the last month, have you been in contact with someone who was confirmed or suspected to have Coronavirus / COVID-19? Unable to assess 08/19/2020 9:05 AM FINANCIAL INSTITUTION VICE PRESIDENT documented as of this encounter Functional Status [...] on filedocumented in this encounter Care Teams Evs Tech Relationship Specialty [place] [address] [place] [address] PCP - General 07/17/19 01/22/21 documented as of this encounter
--- OUTSIDE RECORDS SUMMARY | 2024-10-07 02:45 | XMS_ITS | Encounter Summary ---
Author Organization [facility] Address [address] [facility] [place] [address] Care Team Providers Care Finished Goods Stock Clerk Name Role Phone Malena Munoz MD Primary Care Provider [phone] Reason for Visit * Reason Comments Follow-up follow up Encounter Details Date Type Department Care Team (Late Contact Info) Description 07/02/2020 10:00 AM CDT Video Visit [facility] Weight Management Services [id number] [place] [address], [facility] [address] [place] [address] Nydia Armas MD [employer] [facility] [address] [address] Morbid obesity due to excess calories (HCC) ; Anxiety and depression Social History Tobacco Use [...] AM CDT documented as of this encounter Last Filed Vital Signs Vital Sign Reading Time Taken Comments Blood Pressure - - Pulse - - Temperature - - Respiratory Rate - - Oxygen Saturation - - Inhaled Oxygen Concentration - - Weight 107.1 kg (236 lb 3.2 oz) 07/02/2020 8:16 AM CDT Height 167.6 cm (5' 6 ) 07/02/2020 8:16 AM CDT Body Mass Index 38.12 07/02/2020 8:16 AM CDT documented in this encounter Functional [...] Progress Notes * Nydia Armas MD - 07/02/2020 10:05 AM CDT Bariatric FollowUp VIRTUAL Visit This [...] date of encounter is: 30 minutes with 25 minutes spent in medical discussion Chief Complaint: Obesity, severe: Other relevant medical problems: Anxiety and depression. HPI: The patient is here for follow-up for medical wt loss. Adherence to plan is Good. Dietary and Exercise/Physical activity change from previous visit: Doing very well , feels her sense of hunger and satiety are active, and she follows those.follows [address] [employer] carefully, physical active with daily exercise, adding to 4 hours a week, half incorporated in activity with her child. Fells stable emotionally and not stressed. Prefers to stick with digital food logs over paper, makes it more easy to comply with regular logging. Weight change since last visit: Current Weight (estimated by patient using home scale): 236 LB, lost another 18 pounds in 2 months (lost 46 pounds since February 2020. Review of Systems: Changes in medical history [...] OBJECTIVE: Ht 5' 6 (1.676 m) Wt 236 lb 3.2 oz (107.1 kg) BMI 38.12 kg/g1Equcup: 5' 6 (167.6 cm) Body mass index is 38.12 kg/m??. CrCl cannot be calculated (Patient's most recent lab result is older than the maximum 15 days allowed.). Wt Readings from Last 3 Encounters: 07/02/20 236 lb 3.2 oz (107.1 kg) 05/14/20 254 lb (115.2 kg) 03/17/20 282 lb (127.9 kg) BP Readings from Last 3 Encounters: [...] Diabetes Father ??? Heart Disease Father no [place] ??? Depression Maternal Grandmother ??? Anxiety Disorder [...] Obesity Class severe: - Excellent progress with 46 pounds of wt loss in 4 months. Excellent compliance with monitoring ofintake, measuring and weighing, increased physical activity and thoughtful handling of dietary urges. Advised to write for herself the rodríguez elements that lead to her success and monitor her adherence tothose elements every now and then. Also strongly advised to plan ahead for the holiday events expected in the comoming 3 months. Will update few labs next visits (CBC, CMP, uric acid and Mg); and consider adjustment of caloric daily limits once she is below 200 lb. ICD-10-CM 1. Morbid obesity due to excess calories E66.01 2. Anxiety and depression F41.9 F32.9 - Continue [...] for ongoing weight management (marked with X): [place] Consultant care is recommended. ___x__ The patient received [...] the patient. ___x__ Follow up with Dr. Abdelhamid, in 6 weeks. >>>>>>>>>>>>>>>> This encounter is a live Audio-Video encounter This encounter with the patient lasted over 30 min, more than 50% of the time was in direct [id number] counseling with the patient regarding increased physical activity, reduced caloric intake, healthy diet and behavioral modifications. Nydia Armas MD 07/02/2020 documented in this encounter Plan of Treatment Not on file documented as of this encounter Visit Diagnoses Diagnosis Morbid obesity due to excess calories (HCC)- Primary Anxiety and depression Dysthymic disorder documented in this encounter Care Teams Finished Goods Stock Clerk Relationship Specialty [place] [address] [place] [phone] PCP - General 07/17/19 01/22/21 documented as of this encounter
--- OUTSIDE RECORDS SUMMARY | 2024-10-07 02:45 | XMS_ITS | Encounter Summary ---
Author Organization [facility] Address [facility] [place] [address] Care Team Providers Care Condenser Setter Name Role Phone Malena Munoz MD Primary Care Provider [phone] Encounter Details Date Type Department Care Team (Latest Contact Info) Description 08/19/2020 9:05 AM ELECTRICAL TECH/PROJECT MANAGER - 08/19/2020 11:59 PM ELECTRICAL TECH/PROJECT MANAGER Hospital Encounter [facility] [employer] [address] [address] Allie Lacy, CITY ATTORNEY-MARKET DIRECTOR [address] [place] [address] Discharge Disposition: Home or Self Care Social [...] COVID-19? Unable to assess 08/19/2020 9:05 AM ELECTRICAL TECH/PROJECT MANAGER documented as of this encounter Functional [...] Diagnosis Comments SARS-COV-2 (COVID-19) IN HOUSE Routine 08/19/2020 9:07 AM ELECTRICAL TECH/PROJECT MANAGER Exposure to COVID-19 virus documented in this encounter Results * SARS-COV-2 (COVID-19) IN HOUSE (08/19/2020 9:07 AM ELECTRICAL TECH/PROJECT MANAGER) COVID-19 PCR Not detected Not detected 08/20/2020 11:25 PM ELECTRICAL TECH/PROJECT MANAGER [facility] Microbiology SPECIMEN FROM NASOPHARYNGEAL STRUCTURE / Unknown Collection / Unknown 08/19/2020 9:07 AM ELECTRICAL TECH/PROJECT MANAGER 08/19/2020 9:07 AM ELECTRICAL TECH/PROJECT MANAGER Narrative [facility] - 08/20/2020 11:25 PM ELECTRICAL TECH/PROJECT MANAGER This Real Time RT-PCR assay was developed and its performance characteristics determined by [facility]. This test has been [...] this EUA assay are available upon request. Trey Rosario PA-C LAB - MICROBIOLOGY [facility] [address] [place] [address], [facility] [phone] documented in this encounter Visit Diagnoses Diagnosis Exposure to COVID-19 virus- Primary documented in this encounter Care Teams Condenser Setter Relationship Specialty [place] [address] [place] [phone] PCP - General 07/17/19 01/22/21 documented as of this encounter
--- OUTSIDE RECORDS SUMMARY | 2024-10-07 02:45 | XMS_ITS | Encounter Summary ---
Author Organization [facility] Address [address] [place] [address] Care Team Providers Care Varying Exceptionalities Teacher Name Role Phone Malena Munoz MD Primary Care Provider [phone] Reason for Visit * Reason Comments Follow-up follow up Encounter Details Date Type Department Care Team (Late st Contact Info) Description 09/10/2020 9:30 AM BABY COUNSELOR Video Visit [facility] Weight Management Services [id number] [place] [address], [address] [place] [address] Nydia Armas MD [facility] [address] [address] Morbid obesity due to excess calories (HCC) ; Low back pain radiating to left lower extremity; Anxiety and depression Social History Tobacco Use [...] COVID-19? Unable to assess 08/19/2020 9:05 AM BABY COUNSELOR documented as of this encounter Last Filed Vital Signs Vital Sign Reading Time Taken Comments Blood Pressure - - Pulse - - Temperature - - Respiratory Rate - - Oxygen Saturation - - Inhaled Oxygen Concentration - - Weight 102.1 kg (225 lb) 09/10/2020 9:16 AM BABY COUNSELOR Height 167.6 cm (5' 6 ) 09/10/2020 9:16 AM BABY COUNSELOR Body Mass Index 36.32 09/10/2020 9:16 AM BABY COUNSELOR documented in this encounter Functional Status Functional [...] Progress Notes * Nydia Armas MD - 09/10/2020 9:33 AM CST Bariatric FollowUp VIRTUAL Visit This [...] Complaint: Obesity, severe: Other relevant medical problems: depression; anxiety and depression HPI: The patient is here for follow-up for medical wt loss. Adherence to plan is Good as judged by the change in weight. Weight change since last visit: Current Weight (estimated by patient using home scale): 225 LB lost 11 lb in 2 months. Dietary and Exercise/Physical activity change from previous visit: recognizing hunger feeling better, feels in control, started a self help book that she feels is it is helping a lot. Continuing withdigital food log, Holiday season is planned well. Review of Systems: Changes in medical history since prior visit: none. Noticing more bruising recently, had a blood nose twice. No blood in urine or stools. No light headedness, dizziness or excessive fatigue. No chest pain, irregular hear beats or leg swelling No abdominal cramps, no diarrhea, no constipation No leg cramps (except on busy days at work, not new to the patient), calf pain, ulcers or cold extremities. No mood change, unusual feelings of anxiety, depression or irritability No change in sleeping habits. OBJECTIVE: Ht 5' 6 (1.676 m) Wt 225 lb (102.1 kg) BMI 36.32 kg/u1Efsxzl: 5' 6 (167.6 cm) Body mass index is 36.32 kg/m??. CrCl cannot be calculated (Patient's most recent lab result is older than the maximum 15 days allowed.). Wt Readings from Last 3 Encounters: 09/10/20 225 lb (102.1 kg) 07/02/20 236 lb 3.2 oz (107.1 kg) 05/14/20 254 lb (115.2 kg) BP Readings from Last 3 Encounters: 05/11/19 138/70 04/04/19 110/70 02/12/19 128/64 Physical exam: N/A Virtual visit This encounter is a live Audio-Video encounter Reviewed glucose log: none Labs/studies reviewed: Updated labs ordered, including CBC to check the platelet count. Allergies Allergen Reactions ??? Tramadol Other Shaky, increased heart rate, sweating. ??? Penicillins Rash Social History Smoking status: Never Smoker Smokeless tobacco: Never Used Alcohol use: No Drug use: No Sexual activity: Yes Partners with: Male Family History Problem Relation Name Age of Onset ??? Depression Mother ??? Anxiety Disorder Mother ??? Hypertension Father ??? Diabetes Father ??? Heart Disease Father no [place] ??? Depression Maternal Grandmother ??? Anxiety Disorder [...] 1 capsule by mouth 2 times daily (Patient not taking: Reported on 09/10/2020) 60 capsule 5 ??? FLUoxetine (PROZAC) 20 MG capsule TK ONE C PO D ??? omeprazole (PRILOSEC) 20 MG capsule Take 20 mg by mouth daily before breakfast ??? ondansetron, disintegrating, (ZOFRAN ODT) 4 MG tablet Take 1 tablet by mouth every 6 hours as needed for Nausea/Vomiting Allow tablet to dissolve on the tongue (Patient not taking: Reported on 09/10/2020) 20 tablet 0 ??? Vit-Fe Fumarate-FA ( VITAMIN) 28-0.8 MG tablet Take 1 tablet by mouth once daily ??? raNITIdine (ZANTAC) 150 MG capsule Take 150 mg by mouth once daily No current facility-administered medications for this visit. Impression/Plan: Obesity Class severe: - excellent progress, good compliance and understanding of all the plan elements (charity control, physactivity and behavioral change). ICD-10-CM 1. Morbid obesity due to excess calories E66.01 2. Low back pain radiating to left lower extremity M54.5 M79.605 3. Anxiety and depression F41.9 F32.9 - [...] for ongoing weight management (marked with X): Grain Shipper care is recommended. ___x__ The patient received detailed Menu plan for the recommended daily calories intake (1500 calories/day), although the patient is sticking most days to 1200 charity/d. ___x__ Meal Replacement Products (2-3 protein shakes) [...] 50% of the time was in direct [id number] counseling with the patient regarding increased physical activity, reduced caloric intake, healthy diet and behavioral modifications. Nydia Armas MD 09/10/2020 COUNSELOR documented in this encounter Plan of Treatment Not on file documented as of this encounter Procedures Procedure Name Priority Date/Time Associated Diagnosis Comments CBC W AUTO DIFFERENTIAL Routine 11/04/2020 8:42 AM BABY COUNSELOR Morbid obesity due to excess calories (HCC) Low back pain radiating to left lower extremity Anxiety and depression URIC ACID BLOOD Routine 11/04/2020 8:41 AM BABY COUNSELOR Morbid obesity due to excess calories (HCC) Anxiety and depression HEMOGLOBIN A1C Routine 11/04/2020 8:41 AM BABY COUNSELOR Morbid obesity due to excess calories (HCC) Anxiety and depression COMPREHENSIVE METABOLIC PANEL Routine 11/04/2020 8:41 AM BABY COUNSELOR Morbid obesity due to excess calories (HCC) Anxiety and depression MAGNESIUM BLOOD Routine 11/04/2020 8:41 AM BABY COUNSELOR Morbid obesity due to excess calories (HCC) Anxiety and depression LIPID PROFILE Routine 11/04/2020 8:41 AM BABY COUNSELOR Morbid obesity due to excess calories (HCC) Anxiety and depression documented in this encounter Results * (ABNORMAL) CBC WITH DIFFERENTIAL (11/04/2020 8:42 AM BABY COUNSELOR) WBC 3.5 3.4 - 10.8 x10E3/uL [facility] ACCOUNT BILL RBC 3.71(L) 3.77 - 5.28 x10E6/uL [facility] ACCOUNT BILL Hemoglobin 11.9 11.1 - 15.9 g/dL [facility] ACCOUNT BILL Hematocrit 34.3 34.0 - 46.6 % [facility] ACCOUNT BILL MCV 93 79 - 97 fL [facility] ACCOUNT BILL MCH 32.1 26.6 - 33.0 pg [facility] ACCOUNT BILL MCHC 34.7 31.5 - 35.7 g/dL [facility] ACCOUNT BILL RDW 11.8 11.7 - 15.4 % [facility] ACCOUNT BILL Platelet Count 193 150 - 450 x10E3/uL [facility] ACCOUNT BILL Granulocytes % 45 Not Estab. % [facility] ACCOUNT BILL Lymphocytes % 43 Not Estab. % [facility] ACCOUNT BILL Monocytes % 10 Not Estab. % [facility] ACCOUNT BILL Eosinophils % 1 Not Estab. % [facility] ACCOUNT BILL Basophils % 1 Not Estab. % [facility] ACCOUNT BILL Immature Cells NOT NEEDED [facility] ACCOUNT BILL Comment:Ancillary determined the test is not needed. Granulocytes Absolute 1.6 1.4 - 7.0 x10E3/uL [facility] ACCOUNT BILL Lymphocytes Absolute 1.5 0.7 - 3.1 x10E3/uL [facility] ACCOUNT BILL Monocytes Absolute 0.3 0.1 - 0.9 x10E3/uL [facility] ACCOUNT BILL Eosinophils Absolute 0.0 0.0 - 0.4 x10E3/uL [facility] ACCOUNT BILL Basophils Absolute 0.0 0.0 - 0.2 x10E3/uL [facility] ACCOUNT BILL Immature Granulocytes 0 Not Estab. % [facility] ACCOUNT BILL Immature Granulocytes Absolute 0.0 0.0 - 0.1 x10E3/uL [facility] ACCOUNT BILL nRBC NOT NEEDED [facility] ACCOUNT BILL Comment:Ancillary determined the test is not needed. Comment Hematology NOT NEEDED [facility] ACCOUNT BILL Comment: FASTING Ancillary determined the test is not needed. Blood BLOOD SPECIMEN / Unknown 11/04/2020 8:42 AM BABY COUNSELOR 11/04/2020 Narrative Resulting Agency Comment Lab Testing performed at: [place] [id number] [facility] ??[facility] [id number] Nydia Armas MD LAB - HEMATOLOGY ORDERABLES [facility] ACCOUNT BILL [address] [place] [address] * URIC ACID BLOOD (11/04/2020 8:41 AM BABY COUNSELOR) Uric Acid 4.3 2.6 - 6.2 mg/dL [facility] ACCOUNT BILL Comment: ?Therapeutic target for gout patients: <6.0 FASTING Blood BLOOD SPECIMEN / Unknown 11/04/2020 8:41 AM BABY COUNSELOR 11/04/2020 Narrative Resulting Agency Comment Lab Testing performed at: [facility] [place] [address] ??[facility] [id number] Nydia Armas MD LAB - CHEMISTRY O RDKALEIGH Performing Organization Address [facility] Co de Phone Number [facility] ACCOUNT BILL [address] [place] [address] * MAGNESIUM BLOOD (11/04/2020 8:41 AM BABY COUNSELOR) Magnesium 1.9 1.6 - 2.3 mg/dL [facility] ACCOUNT BILL Comment:FASTING Blood BLOOD SPECIMEN / Unknown 11/04/2020 8:41 AM BABY COUNSELOR 11/04/2020 Narrative Resulting Agency Comment Lab Testing performed at: [facility] [place] [address] [facility] ??[facility] [id number] Nydia Armas MD LAB - CHEMISTRY O HANNHA Performing Organization Address [facility] de Phone Number [facility] ACCOUNT BILL [address] [place] [address] * LIPID PROFILE (11/04/2020 8:41 AM BABY COUNSELOR) Cholesterol 160 100 - 199 mg/dL [facility] [...] BLOOD SPECIMEN / Unknown 11/04/2020 8:41 AM BABY COUNSELOR 11/04/2020 Narrative Resulting Agency Comment Lab Testing performed at: [facility] [place] [address] ??[facility] [id number] Nydia Armas MD LAB - CHEMISTRY O RDERASEAN [facility] ACCOUNT BILL [address] [place] [address] * COMPREHENSIVE METABOLIC PANEL (11/04/2020 8:41 AM BABY COUNSELOR) Glucose 70 65 - 99 mg/dL [facility] ACCOUNT BILL BUN 9 6 - 20 mg/dL [facility] ACCOUNT BILL Creatinine 0.67 0.57 - 1.00 mg/dL [facility] ACCOUNT BILL eGFR by MDRD 119 >59 mL/min/1.7 3 [facility] ACCOUNT BILL eGFR by MDRD 137 >59 mL/min/1.7 3 [facility] ACCOUNT BILL BUN/Creatinine Ratio 13 9 - 23 [facility] ACCOUNT BILL Sodium 140 134 - 144 mmol/L [facility] ACCOUNT BILL Potassium 4.1 3.5 - 5.2 mmol/L [facility] ACCOUNT BILL Chloride 104 96 - 106 mmol/L [facility] ACCOUNT BILL CO2 23 20 - 29 mmol/L [facility] ACCOUNT BILL Calcium 8.9 8.7 - 10.2 mg/dL [facility] ACCOUNT BILL Protein Total 6.2 6.0 - 8.5 g/dL [facility] ACCOUNT BILL Albumin 4.2 3.9 - 5.0 g/dL [facility] ACCOUNT BILL Globulin Total 2.0 1.5 - 4.5 g/dL [facility] ACCOUNT BILL Albumin/Globulin Ratio 2.1 1.2 - 2.2 [facility] ACCOUNT BILL Bilirubin Total 0.3 0.0 - 1.2 mg/dL [facility] ACCOUNT BILL Alkaline Phosphatase 54 39 - 117 IU/L [facility] ACCOUNT BILL AST 16 0 - 40 IU/L [facility] ACCOUNT BILL ALT 10 0 - 32 IU/L [facility] ACCOUNT BILL Comment:FASTING Blood BLOOD SPECIMEN / Unknown 11/04/2020 8:41 AM BABY COUNSELOR 11/04/2020 Narrative Resulting Agency Comment Lab Testing performed at: [facility] [address] ??[facility] [id number] Nydia Armas MD LAB - CHEMISTRY O RDERASEAN [facility] ACCOUNT BILL [address] [place] [address] * (ABNORMAL) HEMOGLOBIN A1C (11/04/2020 8:41 AM BABY COUNSELOR) Hemoglobin A1c 4.7(L) 4.8 - 5.6 % [facility] ACCOUNT BILL Comment: ? . ? Prediabetes: 5.7 - 6.4 ? Diabetes: >6.4 ? Glycemic control for adults with diabetes: <7.0 FASTING Blood BLOOD SPECIMEN / Unknown 11/04/2020 8:41 AM BABY COUNSELOR 11/04/2020 Narrative Resulting Agency Comment Lab Testing performed at: [address] ??[facility] [id number] Nydia Armas MD LAB - CHEMISTRY O RDERABLES [facility] ACCOUNT BILL [address] [place] [address] documented in this encounter Visit Diagnoses Diagnosis Morbid obesity due to excess calories (HCC)- Primary Low back pain radiating to left lower extremity Anxiety and depression Dysthymic disorder documented in this encounter Care Teams Varying Exceptionalities Teacher Relationship Specialty [place] [address] [place] [address] PCP - General 07/17/19 01/22/21 documented as of this encounter
--- OUTSIDE RECORDS SUMMARY | 2024-10-07 02:46 | XMS_ITS | Encounter Summary ---
Author Organization [facility] Address [address] [facility] [place] [address] Care Team Providers Care Commercial Property Manager Name Role Phone Malena Munoz MD Primary Care Provider [phone] Reason for Visit * Reason Comments Weight Check Encounter Details Date Type Department Care Team (Late st Contact Info) Description 04/12/2017 11:40 AM CDT Office Visit [facility] - Family Medicine [address] [place] [id number] [place] [address] [facility] [address] [place] [address] Morbid obesity due to excess calories (HCC) (Primary Dx); BMI 45.0-49.9, adult (HCC); Prolonged standing Social History Tobacco Use Types Packs/Day Years Used Date Smoking Tobacco: Never Smokeless Tobacco: Never Alcohol Use Standard Drinks/Week Comments Yes 0 (1 standard drink = 0.6 oz pur e alcohol) occasional mixed drink Sex and Gender Information Value Date Recorded Sex Assigned at Female 01/03/2022 5:41 PM CDT Gender Identity Female 01/03/2022 5:41 PM CDT Sexual Orientation Bisexual 01/03/2022 5: 41 PM CDT documented as of this encounter Last Filed Vital Signs Vital Sign Reading Time Taken Comments Blood Pressure 134/69 04/12/2017 11:47 AM CDT Pulse 69 04/12/2017 11:47 AM CDT Temperature 36.7 ??C (98 ??F) 04/12/2017 11:47 AM CDT Respiratory Rate 18 04/12/2017 11:47 AM CDT Oxygen Saturation 100% 04/12/2017 11:47 AM CDT Inhaled Oxygen Concentration - - Weight 127 kg (280 lb) 04/12/2017 11:47 AM CDT Height 166.4 cm (5' 5.5 ) 04/12/2017 11:47 AM CD T Body Mass Index 45.89 04/12/2017 11:47 AM CDT documented in this encounter Progress Notes * Malena Munoz MD - 04/12/2017 12:05 PM CDT Office Visit HPI: Leti Soto is a 26 y.o. female is here today for obesity and compressive stockings Accompanied by: self Obesity Has lost weight with lifestyle changes, but tends to plateau, so would like to try phentermine/topiramate Denies chest pain, headache, vision changes, shortness of breath, or palpitation Goal weight is 200lb before she tries to get Eating healthy Exercising 3 times a week, interval training in weight train Home scale was persistently at 275 lb recently Has tried different groups and diets in the past without lasting success Has not tried weight loss medications before Prolonged standing Requests compressive stocking due to being on her feet at work during 12-hour shifts. Would like toprevent swelling and varicose veins. Denies calf pain or swelling Previous calf cramps only with working out and being on her feet Has found a store in [place] that can customize compressive stocking, since her calves are different in size; OTC compressive stockings have not been a good fit Review of Systems: Review of Systems Respiratory: Negative for shortness of breath. Cardiovascular: Negative for chest pain. Past Medical History: Diagnosis Date ??? NEGATIVE PAST MEDICAL HISTORY - SEE PROBLEM LIST Past Surgical History: Procedure Laterality Date ??? Cholecystectomy, Laparoscopic 2008 ??? LASIK SURGERY Bilateral 11/2016 ??? [place] Tooth Extraction Current Medications: ??? metoprolol succinate XL 24hr (TOPROL XL) 50 MG tablet ??? norgestimate-ethinyl estradiol (MONONESSA) 0.25-35 MG-MCG tablet ??? diphenhydrAMINE (BENADRYL) 25 MG capsule ??? triamcinolone acetonide (KENALOG) 0.1 % cream Allergies Allergen Reactions ??? Tramadol Other Shaky, increased heart rate, sweating. ??? Penicillins Rash Social History Social History ??? Marital status: Single Spouse name: N/A ??? Number of children: 0 ??? Years of education: 16 Occupational History ??? 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 Smoking status: Never Smoker ??? Smokeless tobacco: Never Used ??? Alcohol use 0.0 oz/week 0 Standard drinks or equivalent per week Comment: occasional mixed drink ??? Drug use: No ??? Sexual activity: Yes Partners: Male Other Topics Concern ??? Not on file Social History Narrative Born and raised in [place], [place] Lives at home with parents and a friend Exercise: 3 times a week Diet: 1600 calorie diet, 90 oz water daily Caffeine: maybe 1 cup coffee a day, 1-2 Diet soda a day; usually only when she's working Spirituality: Non-anabaptism Spiritism Exam: BP 134/69 Pulse 69 Temp 98 ??F (Oral) Resp 18 Ht 1.664 m (5' 5.5 ) Wt 127 kg (280 lb) SpO2 100% BMI45.89 kg/m2 Wt Readings from Last 3 Encounters: 04/12/17 127 kg (280 lb) 03/22/17 129.3 kg (285 lb) 12/22/16 122.5 kg (270 lb) GENERAL: Well groomed, well nourished, good hygiene, obese, no acute distress PSYCH: Alert & oriented, normal mood, affect, insight EYE: Conjunctiva normal bilaterally CARDIOVASCULAR: RRR without murmurs. Normal heart sounds. No edema. RESPIRATORY: Respirations unlabored. Clear bilaterally with normal air movement. No crackles or wheezes. SKIN: warm and dry, no rashes Data: ECG Interpretation Date/Time: 04/12/2017 12:27 PM Comparison: no previous ECG Rhythm: sinus rhythm Ectopy: none Rate: sinus bradycardia BPM: 58 QRS axis: normal Conduction: conduction normal ST Segments: ST segments normal T Waves: T waves normal Clinical impression: normal ECG Assessment & Plan: (E66.01) Morbid obesity due to excess calories (primary encounter diagnosis) Plan: Trial of Qsymia, 1 capsule daily for 14 days, then 2 capsule daily. Follow up in 1 month. Cautioned regarding potential side effects to menstrual period and effectiveness of OCP, but usually not in doses less than 200 mg. Patient to contact us if medication is too expensive or causing side effects. May work with pharmacy to find alternative combination. Continue healthy eating and regular ex ercise. Since she is already losing weight, we will plan on being on phentermine for short-term, such as 6 months and re-evaluate. Patient's goal weight is 200 lb. phentermine-topiramate 24hr (QSYMIA) 3.75-23 MG capsule, AR ELECTROCARDIOGRAM, COMPLETE (Z68.42) BMI 45.0-49.9, adult Plan: see above. phentermine-topiramate 24hr (QSYMIA) 3.75-23 MG capsule, AR ELECTROCARDIOGRAM, COMPLETE (Z78.9) Prolonged standing Plan: Asymptomatic currently, but Rx for compressive stocking (knee length) given to patient for varicose vein and swelling prophylaxis. Return in about 1 month (around 05/13/2017) for f/u weight. Malena Munoz MD 04/12/2017 12:27 PM * Nida Negrete - 04/12/2017 11:47 AM CDT Leti Soto here for follow up with weight and start medication. Would also like script for compression stockings. documented in this encounter Plan of Treatment Not on file documented as of this encounter Visit Diagnoses Diagnosis Morbid obesity due to excess calories (HCC)- Primary BMI 45.0-49.9, adult (HCC) Body Mass Index 45.0-49.9, adult Prolonged standing Other specified conditions influencing health status documented in this encounter Care Teams Commercial Property Manager Relationship Specialty Start Date End Date Malena Munoz MD PCP - General Family Medicine 01/12/16 04/03/19 documented as of this encounter
--- OUTSIDE RECORDS SUMMARY | 2024-10-07 02:46 | XMS_ITS | Encounter Summary ---
Author Organization [facility] Address [address] [place] [address] Care Team Providers Care Drill Runner Name Role Phone Malena Munoz MD Primary Care Provider [phone] Reason for Visit * Reason Onset Date Comments Results 02/25/2016 Encounter Details Date Type Department Care Team (Late st Contact Info) Description 02/25/2016 Telephone [facility] - Family Medicine [address] [place] [address] [place] [address] [facility] [address] [place] [address] Results Social History Tobacco Use Types Packs/Day [...] PM CDT documented as of this encounter Miscellaneous Notes * Telephone Encounter - Malena Munoz MD - 02/25/2016 5:43 PM CDT Left message regarding negative Pap smear result. Recommend repeat screening in 3 years. Letter sent to patient. documented in this encounter Plan of Treatment Not on file documented as of this encounter Visit Diagnoses Not on filedocumented in this encounter Care Teams Drill Runner Relationship Specialty Start Date End Date Malena Munoz MD PCP - General Family Medicine 01/12/16 04/03/19 documented as of this encounter
--- OUTSIDE RECORDS SUMMARY | 2024-10-07 02:46 | XMS_ITS | Encounter Summary ---
Author Organization [facility] Address [address] [place] [address] Care Team Providers Care Straw Baler Name Role Phone Malena Munoz MD Primary Care Provider [phone] Reason for Visit * Reason Comments Pain Back Pain Hip Numbness Encounter Details Date Type Department Care Team (Latest Contact Info) Description 10/31/2016 8:00 AM WAREHOUSE TEAM LEADER Office Visit [facility] - Family Medicine [address] [place] [phone] [place] [address] [facility] [address] [place] [address] Acute left lumbar radiculopathy (Primary Dx); Sacroiliitis (HCC) Social History Tobacco Use Types Packs/Day [...] Sign Reading Time Taken Comments Blood Pressure 136/78 10/31/2016 8:10 AM WAREHOUSE TEAM LEADER Pulse 60 10/31/2016 8:10 AM WAREHOUSE TEAM LEADER Temperature 36.6 ??C (97.9 ??F) 10/31/2016 8:10 AM CS T Respiratory Rate 18 10/31/2016 8:10 AM WAREHOUSE TEAM LEADER Oxygen Saturation 99% 10/31/2016 8:10 AM WAREHOUSE TEAM LEADER RA Inhaled Oxygen Concentration - - Weight 132.9 kg (293 lb) 10/31/2016 8:10 AM WAREHOUSE TEAM LEADER Height 166.4 cm (5' 5.5 ) 10/31/2016 8:10 AM WAREHOUSE TEAM LEADER Body Mass Index 48.02 10/31/2016 8:10 AM WAREHOUSE TEAM LEADER documented in this encounter Patient Instructions * Patient Instructions* Malena Munoz MD - 10/31/2016 8:32 AM WAREHOUSE TEAM LEADER Please take Medrol Dosepak with food May take tramadol every 6 hours as needed for pain If you're not getting better by Monday, please call and I will refer you to physical therapy Please let us know or go to the ER if symptoms worsen HOUSE TEAM LEADER documented in this encounter Progress Notes * Malena Munoz MD - 10/31/2016 8:18 AM CST Sick Visit HPI: Leti Soto is a 25 y.o. female is here today for left lower back pain with radiation down left leg Accompanied by: self Also present: Shadia Roger, MS3 Has had a personal assistant for months Started having pain in bilateral thighs last , then sudden radiation from left lower back and hip area to anterior thigh and lateral lower leg down to left foot. Took ibuprofen and applied ice for 2 days, but lateral left foot became numb by Monday, now constant tingling feeling. Back pain worsened after 3 12-hour shifts over the weekend being on her feet, to now being constant, stabbing,and lower back, with frequent radiation down left leg. Mom is PT and felt a knot on her left lower back Hurts left lower back more to tilt pelvis or lift leg up Denies bowl and bladder incontinence Has been using heating pad for past two days 10/10 pain currently Review of Systems: Review of Systems Constitutional: Negative for chills and fever. Respiratory: Negative for shortness of breath. Cardiovascular: Negative for chest pain. Gastrointestinal: Negative for nausea and vomiting. Past Medical History Diagnosis Date ??? NEGATIVE PAST MEDICAL HISTORY - SEE PROBLEM LIST Past Surgical History Procedure Laterality Date ??? Cholecystectomy, laparoscopic 2009 ??? [place] tooth extraction Current Medications: ??? metoprolol succinate XL 24hr (TOPROL XL) 50 MG tablet ??? norgestimate-ethinyl estradiol (SPRINTEC 28) 0.25-35 MG-MCG tablet ??? diphenhydrAMINE (BENADRYL) 25 MG capsule ??? triamcinolone acetonide (KENALOG) 0.1 % cream ??? sulfamethoxazole-trimethoprim (BACTRIM DS; SEPTRA DS) 800-160 MG tablet ??? Melatonin 3 MG Allergies Allergen Reactions ??? Penicillins Rash Exam: BP 136/78 (BP SITE: RIGHT ARM, BP POSITION: SITTING, BP CUFF SIZE: Large Adult) Pulse 60 Temp 97.9 ??F (Oral) Resp 18 Ht 1.664 m (5' 5.5 ) Wt 132.9 kg (293 lb) SpO2 99% BMI 48.02 kg/m2 Wt Readings from Last 3 Encounters: 10/31/16 132.9 kg (293 lb) 08/02/16 135.7 kg (299 lb 3.2 oz) 02/19/16 (!) 137.4 kg (303 lb) GENERAL: Well groomed, well nourished, good hygiene, no acute distress PSYCH: Alert & oriented, normal mood, affect, insight EYE: Conjunctiva normal bilaterally CARDIOVASCULAR: RRR without murmurs. Normal heart sounds. No edema. No carotid bruit. RESPIRATORY: Respirations unlabored. Clear bilaterally with normal air movement. No crackles or wheezes. MUSCULOSKELETAL: Bilateral hips with normal range of motion without pain. BACK: Negative straight leg raise test bilaterally. Normal right ASHLIE test. Left ASHLIE test positive with radiating pain down to foot. Tender over left lower back and hip area, most prominently overleft SI joint. NEURO: Sensation to light touch is more sensitive over left lateral foot. 5+ lower extremity strength, symmetric. SKIN: warm and dry, no rashes Assessment & Plan: (M54.16) Acute left lumbar radiculopathy (primary encounter diagnosis) Plan: Likely left sacroiliitis. Physical exam not consistent with nerve impingement of lumbar spinenerve roots or hip joint problem, but she does sometimes feel radiation of the pain down her left leg. Will treat with Medrol dose pack, continue heat application, and may use tramadol as needed for severe pain. If not better in 2 days, she is to call us, and I will refer her to physical therapy. If not better, then we will check x-ray before likely MRI. Gave patient precaution to go to ER, if symptoms worsen, if she develops problems with bowel or bladder incontinence, and if pain becomes moresevere. methylPREDNISolone (MEDROL DOSEPAK) 4 MG tablet, traMADol (ULTRAM) 50 MG tablet (M46.1) Sacroiliitis Plan: Trial of Medrol Dosepak, heat, and p.r.n. tramadol. Referred to PT if not better. If symptoms do not start to improve in 48 hours or if they worsen, patient has been instructed to call or make an appointment or go to ER if necessary. Malena Munoz MD 11/01/2016 9:24 AM HOUSE TEAM LEADER * Nida Negrete - 10/31/2016 8:11 AM CST Leti May Soto here for hip and back pain since last . Also having foot, ankle, and outer left leg numbness. HOUSE TEAM LEADER documented in this encounter Plan of Treatment Not on file documented as of this encounter Visit Diagnoses Diagnosis Acute left lumbar radiculopathy- Primary Thoracic or lumbosacral neuritis or radiculitis, unspecified Sacroiliitis (HCC) Sacroiliitis, not elsewhere classified documented in this encounter Care Teams Straw Baler Relationship Specialty Start Date End Date Malena Munoz MD PCP - General Family Medicine 01/12/16 04/03/19 documented as of this encounter
--- OUTSIDE RECORDS SUMMARY | 2024-10-07 02:46 | XMS_ITS | Encounter Summary ---
Author Organization [facility] Address [address] [facility] [address] [facility] [place] [address] Care Team Providers Care Test Man Name Role Phone Malena Munoz MD Primary Care Provider [phone] Reason for Visit * Reason Comments Refill Request Encounter Details Date Type Department Care Team (Late st Contact Info) Description 07/04/[address] [facility] Medical [facility] - Family Medicine [address] [place] [phone] [place] [address] [facility] [address] [place] [phone] Refill Request Social History Tobacco Use Types [...] encounter Miscellaneous Notes * Telephone Encounter - Nida Negrete Erika - 07/04/2017 3:37 PM CDT Requested Prescriptions Pending Prescriptions Disp Refills ??? MONONESSA 0.25-35 MG-MCG tablet [Pharmacy Med Name: MONONESSA TABLETS 28S] 84 Tab 0 Sig: TAKE 1 TABLET BY MOUTH EVERY DAY Last appt: 06/07/17 Next appt: 09/06/17 Number of cancel or no shows in the last 12 months: 0 Allergies have been reviewed. Correct pharmacy is populated. Please sign RX and close encounter. documented in this encounter Plan of Treatment Not on file documented as of this encounter Visit Diagnoses Not on filedocumented in this encounter Care Teams Test Man Relationship Specialty Start Date End Date Malena Munoz MD PCP - General Family Medicine 01/12/16 04/03/19 documented as of this encounter
--- OUTSIDE RECORDS SUMMARY | 2024-10-07 02:46 | XMS_ITS | Encounter Summary ---
Author Organization [facility] Address [address] [place] [address] Care Team Providers Care Pizza Chef Name Role Phone Malena Munoz MD Primary Care Provider [phone] Reason for Visit * Reason Comments Refill Request Encounter Details Date Type Department Care Team (Late st Contact Info) Description 12/31/2016 Refill [facility] Medical [facility] - Family Medicine [address] [place] [phone] [place] [address] [facility] [place] [address] [place] [phone] Refill Request Social History Tobacco Use Types [...] encounter Miscellaneous Notes * Telephone Encounter - Carol Dodson RN - 01/02/2017 9:01 AM CDT Requested Prescriptions Pending Prescriptions Disp Refills ??? meloxicam (MOBIC) 15 MG tablet [Pharmacy Med Name: MELOXICAM 15MG TABLETS] 30 Tab 0 Sig: Take 1 Tab by mouth once daily as needed Last appt: 10/31/16 Next appt: 01/06/17 Number of cancel or no shows in the last 12 months: 1 Allergies have been reviewed. Correct pharmacy is populated. Please sign RX and close encounter. documented in this encounter Plan of Treatment Not on file documented as of this encounter Visit Diagnoses Not on filedocumented in this encounter Care Teams Pizza Chef Relationship Specialty Start Date End Date Malena Munoz MD PCP - General Family Medicine 01/12/16 04/03/19 documented as of this encounter
--- OUTSIDE RECORDS SUMMARY | 2024-10-07 02:46 | XMS_ITS | Encounter Summary ---
Author Organization [facility] Address [address] [facility] [place] [address] Care Team Providers Care I&C Technician Name Role Phone Malena Munoz MD Primary Care Provider [phone] Reason for Visit * Reason Onset Date Comments MEDICATION REFILL 03/15/2018 Encounter Details Date Type Department Care Team (Late st Contact Info) Description 03/15/2018 Refill [facility] Medical [facility] - Family Medicine [address] [place] [phone] [place] [address] [facility] [address] [place] [address] MEDICATION REFILL Social History Tobacco Use Types Packs/Day Years [...] Telephone Encounter - Malena Munoz MD - 03/15/2018 2:26 PM CDT Already refilled today. * Telephone Encounter - Anthony Caballero LPN - 03/15/2018 12:04 PM CDT Requested Prescriptions Pending Prescriptions Disp Refills ??? norgestimate-ethinyl estradiol (MONONESSA) 0.25-35 MG-MCG tablet 84 tablet 0 Sig: Take 1 tablet by mouth once daily pharmacy is requesting generic Estarylla Last appt 08/31/17 Next appt none Number of cancel or no shows in the last 12 months:2 Allergies have been reviewed. Correct pharmacy is populated. Please sign RX and close encounter. documented in this encounter Plan of Treatment Not on file documented as of this encounter Visit Diagnoses Not on filedocumented in this encounter Care Teams I&C Technician Relationship Specialty Start Date End Date Malena Munoz MD PCP - General Family Medicine 01/12/16 04/03/19 documented as of this encounter
--- OUTSIDE RECORDS SUMMARY | 2024-10-07 02:46 | XMS_ITS | Encounter Summary ---
Author Organization [facility] Address [address] [facility] [place] [address] Care Team Providers Care Route Sales Manager Name Role Phone Malena Munoz MD Primary Care Provider [phone] Reason for Visit * Reason Comments Refill Request Encounter Details Date Type Department Care Team (Late st Contact Info) Description 04/17/2018 Refill [facility] Medical [facility] - Family Medicine [address] [place] [phone] [place] [address] [facility] [address] [place] [phone] Refill Request Social History Tobacco Use Types [...] encounter Miscellaneous Notes * Telephone Encounter - Kirsten Gurrola RN - 04/17/2018 5:43 PM CDT Requested Prescriptions Pending Prescriptions Disp Refills ??? metoprolol succinate XL 24hr (TOPROL XL) 50 MG tablet [Pharmacy Med Name: METOPROLOL ER SUCCINATE 50MG TABS] 90 tablet 0 Sig: TAKE 1 TABLET BY MOUTH EVERY DAY Last appt 12/07/17 Next appt none Number of cancel or no shows in the last 12 months:2 Allergies have been reviewed. Correct pharmacy is populated. Please sign RX and close encounter. documented in this encounter Plan of Treatment Not on file documented as of this encounter Visit Diagnoses Not on filedocumented in this encounter Care Teams Route Sales Manager Relationship Specialty Start Date End Date Malena Munoz MD PCP - General Family Medicine 01/12/16 04/03/19 documented as of this encounter
--- OUTSIDE RECORDS SUMMARY | 2024-10-07 02:46 | XMS_ITS | Encounter Summary ---
Author Organization [facility] Address [address] [facility] [place] [address] Care Team Providers Care Laborer Demolition Name Role Phone Malena Munoz MD Primary Care Provider [phone] Encounter Details Date Type Department Care Team (Latest Contact Info) Description 11/04/2016 10:03 AM REFERRAL AND INFORMATION AIDE - 11/04/2016 11:59 PM [facility] Hospital Encounter [facility] Imaging Services - Radiology [address] [place] [address] [place] [address] [facility] [address] [place] [address] Discharge Disposition: Home or Self Care Social [...] PM CDT documented as of this encounter Medications at Time of Discharge Medication Sig Dispensed Refills Start Date End Date diphenhydrAMINE (BENADRYL) 25 MG capsule Take 25 mg by mouth every 6 hours as needed for Itching Reported on 12/22/2016 11/17/2022 Melatonin 3 MG Take 3 mg by mouth once daily Reported on 12/22/2016 03/22/2017 meloxicam (MOBIC) 15 MG tabletIndications:Sacroil iitis (HCC),Low back pain radiating to left lower extremity,Left hip pain Take 0.5-1 Tabs by mouth once daily as needed (pain) 30 Tab 11/03/2016 11/30/2016 methylPREDNISolone (MEDROL DOSEPAK) 4 MG tabletIndications:Acute left lumbar radiculopathy Take by mouth as directed 21 Each 10/31/2016 03/22/2017 metoprolol succinate XL 24hr (TOPROL XL) 50 MG tablet Take 50 mg by mouth once daily 5 12/24/2015 03/08/2017 norgestimate-ethinyl estradiol (SPRINTEC 28) 0.25-35 MG-MCG tabletIndications:Irregul ar periods/menstrual cycles Take 1 Tab by mouth once daily 1 Packet 11 01/12/2016 12/18/2016 sulfamethoxazole-trimetho prim (BACTRIM DS; SEPTRA DS) 800-160 MG tabletIndications:Bug bite, initial encounter Take 1 Tab by mouth every 12 hours 14 Tab 08/02/2016 03/22/2017 traMADol (ULTRAM) 50 MG tabletIndications:Acute left lumbar radiculopathy Take 1 Tab by mouth every 6 hours as needed for Pain 20 Tab 10/31/2016 03/22/2017 triamcinolone acetonide (KENALOG) 0.1 % creamIndications:Bug bite, initial encounter Apply to affected area 2 times daily 15 g 1 08/02/2016 05/12/2017 documented as of this encounter Plan of Treatment Not on file documented as of this encounter Procedures Procedure Name Priority Date/Time Associated Diagnosis Comments XR LUMBAR SPINE 2 OR 3VW Routine 11/04/2016 10:18 AM REFERRAL AND INFORMATION AIDE Sacroiliitis (HCC) Low back pain radiating to left lower extremity documented in this encounter Results * XR LUMBAR SPINE 2 OR 3 VW (11/04/2016 10:18 AM REFERRAL AND INFORMATION AIDE) Anatomical Region Laterality Modality Spine Radiographic Laure ging 11/04/2016 10:3 0 AM REFERRAL AND INFORMATION AIDE Impressions 11/04/2016 10:32 AM REFERRAL AND INFORMATION AIDE Lumbar spine facet osteoarthritis with likely normal disc heights. Narrative 11/04/2016 10:32 AM REFERRAL AND INFORMATION AIDE Examination: Lumbar spine 2 or 3 views [...] Malena Munoz MD DIAGNOSTIC IMAGING O RDERABLES documented in this encounter Visit Diagnoses Diagnosis Sacroiliitis (HCC) Sacroiliitis, not elsewhere classified Low back pain radiating to left lower extremity documented in this encounter Care Teams Laborer Demolition Relationship Specialty Start Date End Date Malena Munoz MD PCP - General Family Medicine 01/12/16 04/03/19 documented as of this encounter
--- OUTSIDE RECORDS SUMMARY | 2024-10-07 02:46 | XMS_ITS | Encounter Summary ---
Author Organization [facility] Address [address] [facility] [place] [address] Care Team Providers Care Processing Technologist Name Role Phone Malena Munoz MD Primary Care Provider [phone] Reason for Visit * Reason Comments VOMITING DURING Encounter Details Date Type Department Care Team (Latest Contact Info) Description 11/26/2018 5:37 PM ROLL FILLER - 11/26/2018 9:15 PM ROLL FILLER Hospital Encounter [facility] [address] [place] [address] Rey Mar MD [address] [address] Discharge Disposition: Home or Self Care Social [...] Pressure - - Pulse - - Temperature 36.7 ??C (98.1 ??F) 11/26/2018 5:37 PM CS T Respiratory Rate 18 11/26/2018 7:21 PM ROLL FILLER Oxygen Saturation - - Inhaled Oxygen Concentration - - Weight 125.2 kg (276 lb) 11/26/2018 7:21 PM ROLL FILLER Height 167.6 cm (5' 6 ) 11/26/2018 5:39 PM ROLL FILLER Body Mass Index 44.55 11/26/2018 5:39 PM ROLL FILLER documented in this encounter Functional Status Functional Status Response Date of Assess ment Is person deaf or have serious hearing difficult y? No 11/26/2018 Is person blind or have serious difficulty seein g? No 11/26/2018 Does person have serious dif ficulty walking/climbing stairs? No 11/26/2018 Does person have difficulty dressing/bathing? No 11/26/2018 Does person have difficulty doing errands alone? No 11/26/2018 Cognitive Status Response Date of Assessm ent Does person have difficulty concentrating/remembering/making decisions? No 11/26/2018 documented as of this encounter Discharge Instructions * Discharge Instructions* Leti Garcia RN - 11/26/2018 9:14 PM ROLL FILLER UNDELIVERED PATIENT DISCHARGE INSTRUCTIONS CALL YOUR DOCTOR (SEE NUMBER BELOW) ?? If you are less than 37 weeks and have move than 5 contractions an hour. ?? Blurring ofvision or spots before your eyes. ?? Ruptured membranes or leakage of vaginal fluid. ?? May be a steady trickle or large gush ?? May be clear, yellow, pink or green ?? Decreased movement--if your baby has stopped movingor is moving less than it normally does. Do Kick Counts as instructed. ?? Vaginal bleeding--bright red bleeding and/or clots needs medical care immediately. ?? Any temperature above 100 degrees. ?? Headache ?? Any burning or painful urination. ?? Increased swelling in your face, hands, or feet. ?? Stomach pains, cramps, nausea,or diarrhea. Important Telephone Number: [facility] [phone] FILLER documented in this encounter Medications at Time of Discharge Medication Sig Dispensed Refills Start Date End Date diphenhydrAMINE (BENADRYL) 25 MG capsule Take 25 mg by mouth every 6 hours as needed for Itching Reported on 12/22/2016 11/17/2022 docusate sodium (COLACE) 100 MG capsule Take 1 capsule by mouth 2 times daily 60 capsule 5 11/26/2018 11/17/2022 ondansetron (ZOFRAN) 4 MG tablet Take 1 tablet by mouth every 6 hours as needed for Nausea/Vomiting 16 tablet 11/26/2018 02/12/2019 Vit-Fe Fumarate-FA ( VITAMIN) 28-0.8 MG tablet Take 1 tablet by mouth once daily 11/17/2022 raNITIdine (ZANTAC) 150 MG capsule Take 150 mg by mouth once daily 11/17/2022 documented as of this encounter H&P Notes * Sabino Toscano MD - 11/26/2018 7:53 PM CST R1 Obstetric H&P Note 11/26/2018, 9:02 PM CC: N/V HPI: 27 y.o. at 16w0d gestation Estimated Date of Delivery: 05/13/19 care: is with Dr Mar Patient's is complicated by: Patient Active Problem List Diagnosis Date Noted ??? Nausea/vomiting in 11/26/2018 Priority: Not Prioritized ??? Mitral valve prolapse 01/12/2016 Priority: Not Prioritized Dx in 2013; had palpitations. Started on metoprolol in 2013 and symptoms resolved. Never had hypertension. ??? Irregular periods/menstrual cycles 01/12/2016 Priority: Not Prioritized ??? Situational anxiety 01/12/2016 Priority: Not Prioritized ??? Psychophysiological insomnia 01/12/2016 Priority: Not Prioritized ??? Morbid obesity due to excess calories 01/12/2016 Priority: Not Prioritized ??? BMI 40.0-44.9, adult 01/12/2016 Priority: Not Prioritized Patient presents with complaints of n/v x2d. 4 sick contacts at work. Tolerating po intermittently No BM in 2 days. negative Ctx. negative LOF. positive VB. Review of Symptoms: Positive for: see HPI Denies: fevers, chills, chest pain, shortness of breath, diarrhea, constipation, dysuria, urinary frequency, changes in vaginal discharge Obstetrical History: OB History Para Term AB Living 1 SAB TAB Ectopic Multiple Live Births # Outcome Date GA Lbr Bimal/2nd Weight Sex Delivery Anes PTL Lv 1 Current Medical History: Past Medical History: Diagnosis Date ??? NEGATIVE PAST MEDICAL HISTORY - SEE PROBLEM LIST Surgeries: Past Surgical History: Procedure Laterality Date ??? Cholecystectomy, Laparoscopic 2008 ??? LASIK SURGERY Bilateral 11/2016 ??? [place] Tooth Extraction Current Medications: Prior to Admission medications Medication Sig Start Date End Date Taking? Authorizing Provider diphenhydrAMINE (BENADRYL) 25 MG capsule Take 25 mg by mouth every 6 hours as needed for Itching Reported on 12/22/2016 Fausto Helm MD metoprolol succinate XL 24hr (TOPROL XL) 50 MG tablet Take 1 tablet by mouth once daily Patient not taking: Reported on 11/26/2018 08/15/18 Malena Munoz MD norgestimate-ethinyl estradiol (ESTARYLLA) 0.25-35 MG-MCG tablet Take 1 tablet by mouth once daily Patient not taking: Reported on 11/26/2018 08/15/18 Malena Munoz MD Vit-Fe Fumarate-FA ( VITAMIN) 28-0.8 MG tablet Take 1 tablet by mouth once daily Yes ProviderFausto MD Allergies: Allergies Allergen Reactions ??? Tramadol Other Shaky, increased heart rate, sweating. ??? Penicillins Rash Social History: Social History Smoking status: Never Smoker Smokeless status: Never Used Alcohol use: No Drug use: No Sexual activity: Yes Partners with: Male Family History: Family History Problem Relation Age of Onset ??? Depression Mother ??? Anxiety Disorder Mother ??? Hypertension Father ??? Diabetes Father ??? Heart Disease Father no [place] ??? Depression Maternal Grandmother ??? Anxiety Disorder Maternal Grandmother agoraphobia ??? Diabetes Maternal Grandfather ??? Heart Disease Maternal Grandfather ??? Cancer - Breast Paternal Grandmother ??? Cancer - Breast Other 2 maternal great aunts No history of infants born with defects Objective: Patient Vitals for the past 24 hrs: Temp Resp 11/26/18 1921 - 18 11/26/18 1737 98.1 ??F (36.7 ??C) - Assessment/ Non-Stress Test FHR 142 Physical Exam General: no acute distress, alert and oriented HEENT: extra-occular movements intact, Heart: regular rate and rhythm, Lungs: clear to auscultation bilaterally, no wheezing/crackles Abdomen: gravid, soft, non-tender Extremities: non-tender bilaterally, no edema bilaterally Neuro:grossly intact, Psych: appropriate affect Current Lab Review: Urine ketones neg Assessment/Plan: 27 y.o. at 16w0d gestation 1. Nausea and Vomiting in Pregancy 1. Vomiting since Monday 2. 4 sick contacts at work 3. Has intermittenly been able to keep food/water down 4. Has tried no tx 5. Patient treated with zofran in triage. Some relief of symptoms. Discharge home with Rx 2. MVP 1. Mild, pt with no issues, OB not concerned per pt 3. Constipation 1. No BM in 2 days 2. Colace 100 BID rx'd 4. Follow up: in clinic 5. Dispo: to home with precautions Discussed with Dr Munoz and Dr Pro (paged at [phone] and [phone], called cell at [phone]) Sabino Toscano MD 11/26/2018 9:02 PM documented in this encounter Plan of Treatment Scheduled Orders Name Type Priority Associated Diagnoses Orde r Schedule NONSTRESS TEST OB Routine ONCE for 1 Occurrences starting 11/26/2018 until 11/26/2018 documented as of this encounter Visit Diagnoses Diagnosis Nausea/vomiting in (HCC)- Primary Unspecified vomiting of , unspecified as to episode of care Nausea/vomiting in (HCC) Unspecified vomiting of , unspecified as to episode of care documented in this encounter Administered Medications Inactive Administered Medications - up to 3 most recent administrations Medication Order MAR Action Action Date Dose Rate Site ondansetron (disintegrating) (ZOFRAN ODT) tab ADS Med 1 dose, Starting on Mon11/26/18 at 1930, Until Mon11/26/18 at 1933, Paty Palacio: cabinet override Allow tablet to dissolve on the tongue ondansetron (disintegrating) (ZOFRAN ODT) tablet 4 mg 4 mg, Oral, ONCE, 1 dose, On Mon11/26/18 at 1945, Allow tablet to dissolve on the tongue $ Given 11/26/2018 7:33 PM ROLL FILLER 4 mg documented in this encounter Active and Recently Administered Medications Times are shown in ROLL FILLER. Scheduled Medication Order 11/24/2018 11/25/2018 11/26/2018 ondansetron (disintegrating) (ZOFRAN ODT) tablet 4 mg (COMPLETED) 4 mg, Oral, ONCE, 1 dose, On Mon11/26/18 at 1945, Allow tablet to dissolve on the tongue 1933 ($ Given - Prov ider: Paty Palacio RN) documented in this encounter Care Teams Processing Technologist Relationship Specialty Start Date End Date Malena Munoz MD PCP - General Family Medicine 01/12/16 04/03/19 documented as of this encounter
--- OUTSIDE RECORDS SUMMARY | 2024-10-07 02:46 | XMS_ITS | Encounter Summary ---
Author Organization [facility] Address [address] [place] [address] Care Team Providers Care Digester Operator Name Role Phone Malena Munoz MD Primary Care Provider [phone] Reason for Visit * Reason Comments Refill Request Encounter Details Date Type Department Care Team (Late st Contact Info) Description 04/05/2017 Refill [facility] - Family Medicine [address] [place] [address] [place] [address] [facility] [address] [place] [address] Refill Request Social History Tobacco Use Types [...] PM CDT documented as of this encounter Plan of Treatment Not on file documented as of this encounter Visit Diagnoses Not on filedocumented in this encounter Care Teams Digester Operator Relationship Specialty Start Date End Date Malena Munoz MD PCP - General Family Medicine 01/12/16 04/03/19 documented as of this encounter
--- OUTSIDE RECORDS SUMMARY | 2024-10-07 02:46 | XMS_ITS | Encounter Summary ---
Author Organization [facility] Address [address] [address] [place] [address] Care Team Providers Care Lactation Specialist Name Role Phone Malena Munoz MD Primary Care Provider [phone] Reason for Visit * Reason Onset Date Comments Follow-up 10/03/2017 Encounter Details Date Type Department Care Team (Late st Contact Info) Description 10/03/2017 Telephone [facility] [place] [facility] AT [address] [address] Provider, [facility] Follow-up Social History Tobacco Use Types Packs/Day [...] encounter Miscellaneous Notes * Telephone Encounter - Richard Saha APRN-CNP - 10/03/2017 9:46 AM PICK REMOVER Pt states she is doing better, but still A little symptomatic. Pt advised to follow up with PCP if symptoms do not completely resolve after finishing antibiotics. REMOVER documented in this encounter Plan of Treatment Not on file documented as of this encounter Visit Diagnoses Not on filedocumented in this encounter Care Teams Lactation Specialist Relationship Specialty Start Date End Date Malena Munoz MD PCP - General Family Medicine 01/12/16 04/03/19 documented as of this encounter
--- OUTSIDE RECORDS SUMMARY | 2024-10-07 02:46 | XMS_ITS | Encounter Summary ---
Author Organization [facility] Address [address] [facility] [place] [address] Care Team Providers Care Assistant Grocery Store Manager Name Role Phone Malena Munoz MD Primary Care Provider [phone] Reason for Visit * Reason Onset Date Comments MEDICATION REFILL 07/04/2017 Encounter Details Date Type Department Care Team (Late st Contact Info) Description 07/04/2017 Refill [facility] - Family Medicine [address] [place] [phone] [place] [address] [facility] [address] [place] [address] MEDICATION REFILL Social History Tobacco Use Types [...] encounter Miscellaneous Notes * Telephone Encounter - Radha Hagan - 07/04/2017 2:38 PM CDT Leti Soto Allergies Allergen Reactions ??? Tramadol Other Shaky, increased heart rate, sweating. ??? Penicillins Rash Requested Prescriptions No prescriptions requested or ordered in this encounter Leti Soto Allergies Allergen Reactions ??? Tramadol Other Shaky, increased heart rate, sweating. ??? Penicillins Rash Requested Prescriptions Pending Prescriptions Disp Refills ??? phentermine (ADIPEX-P) 37.5 MG capsule 30 Cap 0 Sig: Take 1 Cap by mouth daily before breakfast Last Refill: 06-07-17 Last OV: 06-07-17 Next OV:09-06-17 documented in this encounter Plan of Treatment Not on file documented as of this encounter Visit Diagnoses Diagnosis Morbid obesity due to excess calories (HCC) BMI 40.0-44.9, adult (HCC) Body Mass Index 40.0-44.9, adult documented in this encounter Care Teams Assistant Grocery Store Manager Relationship Specialty Start Date End Date Malena Munoz MD PCP - General Family Medicine 01/12/16 04/03/19 documented as of this encounter
--- OUTSIDE RECORDS SUMMARY | 2024-10-07 02:46 | XMS_ITS | Encounter Summary ---
Author Organization [facility] Address [address] [facility] [place] [address] Care Team Providers Care Cut Out Machine Operator Name Role Phone Malena Munoz MD Primary Care Provider [phone] Reason for Visit * Reason Comments Bladder infection Encounter Details Date Type Department Care Team (Late st Contact Info) Description 07/02/2018 2:40 PM CDT Office Visit [facility] - Family Medicine [address] [place] [phone] [place] [address] [facility] [address] [place] [id number] Acute cystitis with hematuria (Primary Dx); Missed period Social History Tobacco Use Types Packs/Day Years [...] Sign Reading Time Taken Comments Blood Pressure 136/69 07/02/2018 2:56 PM CDT Pulse 75 07/02/2018 2:56 PM CDT Temperature 36.7 ??C (98 ??F) 07/02/2018 2:56 PM CDT Respiratory Rate - - Oxygen Saturation 100% 07/02/2018 2:56 PM CDT Inhaled Oxygen Concentration - - Weight 121.6 kg (268 lb) 07/02/2018 2:56 PM CDT Height - - Body Mass Index 43.26 10/01/2017 3:08 PM PARTS MANAGER documented in this encounter Patient Instructions * Patient Instructions* Malena Munoz MD - 07/02/2018 2:33 PM CDT Drink plenty of water May take ibuprofen 400-800mg every 6 hours as needed, with food Finish Macrobid course documented in this encounter Progress Notes * Malena Munoz MD - 07/02/2018 2:28 PM CDT Sick Visit HPI: Leti Soto is a 27 y.o. female is here today for dysuria Accompanied by: self Minor dysuria symptoms last Monday, then fine after Azo, so didn't worry about it Today woke up with dysuria, then frequency x 5 when she got to work, then small clots of blood in urine Feels like pelvic wall burning Denies fever. + mild chills. + loss of appetite + Left flank pain + unprotected sex, LMP is one week late, but usually takes OCP daily Only had one UTI in the past Review of Systems: Review of Systems Constitutional: Positive for chills. Negative for fever. Respiratory: Negative for shortness of breath. Cardiovascular: Negative for chest pain. Gastrointestinal: Negative for nausea and vomiting. Genitourinary: Positive for dysuria, flank pain, frequency, hematuria and urgency. Past Medical History: Diagnosis Date ??? NEGATIVE PAST MEDICAL HISTORY - SEE PROBLEM LIST Past Surgical History: Procedure Laterality Date ??? Cholecystectomy, Laparoscopic 2008 ??? LASIK SURGERY Bilateral 11/2016 ??? [place] Tooth Extraction Current Medications: ??? norgestimate-ethinyl estradiol (MONONESSA) 0.25-35 MG-MCG tablet ??? metoprolol succinate XL 24hr (TOPROL XL) 50 MG tablet ??? diphenhydrAMINE (BENADRYL) 25 MG capsule Allergies Allergen Reactions ??? Tramadol Other Shaky, increased heart rate, sweating. ??? Penicillins Rash Exam: BP 136/69 Pulse 75 Temp 98 ??F (36.7 ??C) (Oral) Wt 121.6 kg (268 lb) SpO2 100% BMI 43.26 kg/m2 Wt Readings from Last 3 Encounters: 07/02/18 121.6 kg (268 lb) 10/01/17 117.9 kg (260 lb) 08/31/17 118.6 kg (261 lb 6.4 oz) Physical Exam Constitutional: She is oriented to person, place, and time and well-developed, well-nourished, and in no distress. Cardiovascular: Normal rate, regular rhythm and normal heart sounds. No murmur heard. Pulmonary/Chest: Effort normal and breath sounds normal. Abdominal: Soft. Bowel sounds are normal. She exhibits no distension. There is no tenderness. Palpation over suprapubic area caused left flank discomfort and pressure Genitourinary: Genitourinary Comments: Mild left CVA tenderness Neurological: She is alert and oriented to person, place, and time. Gait normal. Skin: Skin is warm and dry. Psychiatric: Mood and affect normal. Data: UA reviewed: 2+ leukocyte 2+ protein 3+ blood Sp gravity 1.03 Remaining negative HCG URINE QUALITATIVE - POINT OF CARE (AMB) STL Result Value Ref Range HCG Qual Urine Negative Negative HCG Urine QC NEG Present NEGATIVE - POSITIVE HCG Urine QC POS Present NEGATIVE - POSITIVE Expiration Date 09/24/2019 Lot Number [id number] Assessment & Plan: (N30.01) Acute cystitis with hematuria (primary encounter diagnosis) Plan: UA reviewed. Will culture to adjust abx if needed. Treat with Macrobid, increase hydration, watch out for worsening symptoms that may suggest pyelonephritis. May take ibuprofen prn dysuria. nitrofurantoin monohyd macro crystals (MACROBID) 100 MG capsule, CULTURE URINE (N92.6) Missed period Plan: Negative . HCG URINE QUALITATIVE - POINT OF CARE (AMB) STL If symptoms do not start to improve in 48 hours or if they worsen, patient has been instructed to call or make an appointment or go to ER if necessary. Malena Munoz MD 07/02/2018 3:37 PM documented in this encounter Plan of Treatment Not on file documented as of this encounter Procedures Procedure Name Priority Date/Time Associated Diagnosis Comments CULTURE URINE Routine 07/02/2018 3:00 PM CDT Acute cystitis with hematuria HCG URINE QUALITATIVE - POINT OF CARE (AMB) STL Routine 07/02/2018 Missed period documented in this encounter Results * (ABNORMAL) CULTURE URINE (07/02/2018 3:00 PM [...] CDT 07/02/2018 Narrative Resulting Agency Comment [facility] [address] [facility] ??[facility] [id number] Malena Munoz MD LAB - MICROBIOLOGY O RDERABLES [facility] ACCOUNT BILL [address] [place] [address] * HCG URINE QUALITATIVE - POINT OF CARE (AMB) STL (07/02/2018) HCG Qual Urine Negative Negative HCG Urine QC NEG Present NEGATIVE - POSITIVE HCG Urine QC POS Present NEGATIVE - POSITIVE Expiration Date 09/24/2019 Lot # [id number] Urine URINE / Unknown 07/02/2018 Malena Munoz MD LAB - POINT OF CARE ORDERABLES documented in this encounter Visit Diagnoses Diagnosis Acute cystitis with hematuria- Primary Acute cystitis Missed period Irregular menstrual cycle documented in this encounter Care Teams Cut Out Machine Operator Relationship Specialty Start Date End Date Malena Munoz MD PCP - General Family Medicine 01/12/16 04/03/19 documented as of this encounter
--- OUTSIDE RECORDS SUMMARY | 2024-10-07 02:46 | XMS_ITS | Encounter Summary ---
Author Organization [facility] Address [address] [place] [address] Care Team Providers Care Prefitter Name Role Phone Malena Munoz MD Primary Care Provider [phone] Reason for Visit * Reason Comments Establish Care Encounter Details Date Type Department Care Team (Late st Contact Info) Description 01/12/2016 11:00 AM CDT Office Visit [facility] - Family Medicine [address] [place] [id number] [place] [address] [facility] [address] [place] [address] Irregular periods/menstrual cycles (Primary Dx); Situational anxiety; Psychophysiological insomnia; Morbid obesity due to excess calories (HCC); BMI 45.0-49.9, adult (HCC); Mitral valve prolapse; Need for HPV vaccination Social History Tobacco Use Types Packs/Day Years [...] Sign Reading Time Taken Comments Blood Pressure 125/75 01/12/2016 11:00 AM CDT Lf t arm Pulse 68 01/12/2016 11:00 AM CDT Temperature 36.9 ??C (98.5 ??F) 01/12/2016 11:00 AM C DT Respiratory Rate 16 01/12/2016 11:00 AM CDT Oxygen Saturation 100% 01/12/2016 11:00 AM CDT RA Inhaled Oxygen Concentration - - Weight 133.4 kg (294 lb) 01/12/2016 11:00 AM CDT Height 166.4 cm (5' 5.5 ) 01/12/2016 11:00 AM CD T Body Mass Index 48.18 01/12/2016 11:00 AM CDT documented in this encounter Patient Instructions * Patient Instructions* Malena Munoz MD - 01/12/2016 11:59 AM CDT Keep up the good work of eating healthy and getting exercise May consider [facility]: [email or web address] Let's monitor and see if your sleep improves with better anxiety management Please let us know if you have any problems with the new control pills. Fiber: How to Increase the Amount in Your Diet Why should I eat more fiber? Eating the right amount of fiber has been shown to have a wide range of health benefits. Foods thatare high in fiber can help in the treatment of constipation, hemorrhoids, diverticulitis (the inflammation of pouches in the digestive tract) and irritable bowel syndrome. Dietary fiber may also helplower your cholesterol and reduce your risk of coronary heart disease, type 2 diabetes and certain t ypes of cancer. Eating fiber-rich foods also aids in digestion and the absorption of nutrients, and helps you to feel garcia longer after a meal (which can help curb overeating and weight gain). How can I get more fiber in my diet? The amount of fiber you should get from your diet each day depends on your age and sex. Men 50 years of age and younger should consume at least 38 grams of fiber per day, while men older than 50 years of age should aim for at least 30 grams of fiber daily. Women 50 years of age and younger should consume at least 25 grams of fiber per day, while women older than 50 years of age should aim for at least 21 grams of fiber daily. Try the following ideas to increase the fiber in your diet: Eat at least 2 cups of fruits and 2 1/2 cups of vegetables each day. Fruits and vegetables that arehigh in fiber include: Beans such as: navy (1/2 cup = 9.5 grams), kidney (1/2 cup = 8.2 grams), metz (1/2 cup = 7.7 grams), black (1/2 cup = 7.5), zapien (1/2 = 6.6 grams), white (1/2 cup = 6.3 grams) great northern (1/2 cup = 6.2 grams). Artichokes (1 artichoke = 6.5 grams) Sweet potatoes (1 medium sweet potato = 4.8 grams) Pears (I small pear = 4.4 grams) Green peas (1/2 cup = 4.4 grams) Berries such as raspberries (1/2 cup = 4.0 grams) and blackberries (1/2 cup = 3.8 grams) Prunes (1/2 cup = 3.8 grams) Figs and dates (1/4 cup = 3.6 grams) Spinach (1/2 cup = 3.5 grams) Apples (1 medium apple = 3.3 grams) Oranges (I medium orange = 3.1 grams) Replace refined white bread with whole-grain breads and cereals. Eat brown rice instead of white rice. Eat more of the following foods: Bran muffins Oatmeal Bran or multiple-grain cereals, cooked or dry Brown rice Popcorn 100% whole-wheat bread When eating store-bought foods, check the nutrition information labels for the amounts of dietary fiber in each product. Aim for 5 grams of fiber per serving. Add 1/4 cup of wheat bran (moffett's bran) to foods such as cooked cereal, applesauce or meat loaf. Eat beans each week. Start slowly When you first add fiber to your diet you may notice bloating, cramping or gas. But you can preventthis by making smaller changes in your diet over a period of time. Start with one of the changes listed above, then wait several days to a week before making another. If one change doesn't seem to work for you, try a different one. Be sure to drink more fluids when you increase the amount of fiber you eat. Liquids help your body digest fiber. Try to drink 8 glasses of no- or low- calorie beverages, such as water, unsweetened teaor diet soda each day. Written by [email or web address] editorial staff Reviewed/Updated: 09/03 Created: Which foods are high in fiber? Foods with at least 4 grams of fiber per serving: ? to ?? cup of high-fiber cereal (check the nutrition label on the box) ?? cup of blackberries or raspberries 4 dried prunes 1 cooked artichoke ?? cup of cooked legumes, such as lentils, or red, kidney, and metz beans Foods with 1 to 3 grams of fiber per servin slice of whole-wheat, pumpernickel, or rye bread 4 whole-wheat crackers ?? cup of cereal with 1 to 3 grams of fiber per serving (check the nutrition label on the box) 1 piece of fruit, such as an apple, banana, pear, kiwi, or orange 3 dates ?? cup of canned apricots, fruit cocktail, peaches, or pears ?? cup of raw or cooked vegetables, such as carrots, cauliflower, cabbage, spinach, squash, or corn When should I contact my caregiver? Contact your caregiver if: You have questions about a high-fiber diet. You have a change in your bowel movements. You have an upset stomach. You have a fever. You have pain in your lower abdomen on the left side. You have questions about your condition or care. When should I seek immediate care? Seek care immediately if: You have bloody diarrhea. You have severe abdominal pain. CARE AGREEMENT: You have the right to help plan your care. Learn about your health condition and how it may be treated. Discuss treatment options with your caregivers to decide what care you want to receive. You always have the right to refuse treatment. The above information is an school bus aide only. It is not intended as medical advice for individual conditions or treatments. Talk to your doctor, nurse or pharmacist before following any medical regimen to see if it is safe and effective for you. ?? 2015 [employer]. Information is for End User's use only and may not be sold, redistributed or otherwise used for commercial purposes. All illustrations and images included in CareNotes?? are the copyrighted property of [employer] or [employer]. documented in this encounter Progress Notes * Malena Munoz MD - 01/12/2016 11:30 AM CDT History & Physical HPI: Leti Soto is a 25 y.o. White/ female here today to establish care and discuss control pills Accompanied by: Self Previous PCP: Dr. Moses Barney, last seen 07/2015; changed due to new insurance Dentist: Looking for new one Taker Off Drying Kil[employer]: Looking for new one Started working for [employer] in 09/2015 Irregular Periods Started Azurette at 14 to not get Stopped it after a while, then became very emotional, so resumed OCP to regulate hormone . Didn't have a period at all while on OCP. 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 Anxiety previously was easily controlled, but while studying in nursing school, started feeling palpitations Had echo and dx with Mitral Valve Prolapse, told to walk around when stressed and feeling palpitation Metoprolol working well and doesn't get palpitation anymore Had counseling when she was younger but not recently Anxiety going to work or leaving work Used to have anxiety going places, but now more confident after weight loss Grandma had severe agoraphobia RONA-7 = 11 Insomnia Takes melatonin, but sometimes still doesn't sleep all night Tries to get up or go to another room, but doesn't work Onset 3 years ago Doesn't drink alcohol 1-2 cup of coffee if working; 1-2 diet soda with dinner Tries to stay away from caffeine due to anxiety, palpitation, and insomnia Obesity Has lost 200 lb with diet and exercise Uses [employer] to track intake and exercise Right calf always bigger than left; hasn't had ultrasound or evaluation done on it before; denies pain; difference is less prominent, now that she has lost some weight Considers overall health as Good Review of Systems: Constitutional: Denies fatigue, fevers, changes in weight Psych: Low mood with life changing events Head: Past history of headache, less frequent now Eyes: Denies vision changes. Had CONNIE reynolds appointment this morning, so eyes are dilated ENT: Denies nasal congestion/drainage, sinus pain or sore throat. Cardiovascular: Denies chest pain, palpitations Respiratory: Denies cough, shortness of breath Gastrointestinal: Denies abdominal pain, nausea, vomiting, change in bowel habits, black or bloody stools. Sometimes irregular bowel movements. Genito-Urinary: Denies dysuria or hematuria; denies vaginal discharge. Musculoskeletal: Denies joint or muscle pain Neurological: Denies dizziness, numbness/tingling or weakness Skin: Denies skin lesions or rashes Orange Picker History: Last pap: overdue ; denies h/o abnl pap Hx of STDs: No Patient's last menstrual period was 12/28/2015 (exact date). Menarche 10 Menses: Irregular; see HPI. Flow is moderate, with severe dysmenorrhea The current method of family planning is OCP (estrogen/progesterone) 0 Total lifetime sexual partners = 3; not currently sexually active Past Medical History Diagnosis Date ??? NEGATIVE PAST MEDICAL HISTORY - SEE PROBLEM LIST Past Surgical History Procedure Laterality Date ??? Cholecystectomy, laparoscopic 2008 ??? Holt tooth extraction Current Outpatient Prescriptions Medication ??? Melatonin 3 MG ??? Azurette 0.02-0.15/0.01 ??? metoprolol succinate XL 24hr (TOPROL XL) 50 MG tablet No current facility-administered medications for this visit. Allergies Allergen Reactions ??? Penicillins Rash Family History Problem Relation Age of Onset ??? Depression Mother ??? Anxiety Disorder Mother ??? Hypertension Father ??? Diabetes Father ??? Depression Maternal Grandmother ??? Anxiety Disorder Maternal Grandmother agoraphobia ??? Diabetes Maternal Grandfather ??? Cancer Breast Paternal Grandmother ??? Heart Disease Father no [place] ??? Heart Disease Maternal Grandfather History Social History ??? Marital Status: Single Spouse Name: N/A Number of Children: 0 ??? Years of Education: 16 Occupational History ??? 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 Smoking status: Never Smoker ??? Smokeless tobacco: Never Used ??? Alcohol Use: 0.0 oz/week 0 Not specified per week Comment: occasional mixed drink ??? Drug Use: No ??? Sexual Activity: Partners: Male Other Topics Concern ??? Not on file Social History Narrative Born and raised in [place], [place] Lives at home with parents and a friend Exercise: 3 times a week Diet: 1600 calorie diet, 90 oz water daily Caffeine: maybe 1 cup coffee a day, 1-2 Diet soda a day; usually only when she's working Spirituality: Non-amish Roman [employer] Exam: BP 125/75 mmHg Pulse 68 Temp(Src) 98.5 ??F (Oral) Resp 16 Wt 133.358 kg (294 lb) BMI 48.16 kg/m2 Wt Readings from Last 3 Encounters: 01/12/16 133.358 kg (294 lb) GENERAL: Well groomed, well nourished, good hygiene, obese, no acute distress PSYCH: Alert & oriented, normal mood, affect, insight EYE: Conjunctiva normal bilaterally, pupils equal and reactive to light bilaterally, lids and orbits normal appearing. Fundic exam unremarkable. ENT: Auditory canals without lesions bilaterally, TMs visualized to be pearly fine and without erythema or fluid. Patent nares with normal turbinates. Good dentition. Posterior pharynx unremarkable. LYMPH: No pre/post auricular, submandibular, or cervical lymphadenopathy. NECK: Supple, full range of motion. No thyroid enlargement or pain with palpation. CARDIOVASCULAR: RRR without murmurs. Normal heart sounds. No edema. No carotid bruit. RESPIRATORY: Respirations unlabored. Clear bilaterally with normal air movement. No crackles or wheezes. ABDOMEN: Soft, non-tender, non-distended. No hepatosplenomegaly. Normal bowel sounds. No hernias appreciated. MUSCULOSKELETAL: Normal gait, normal ROM. 5+ and symmetric strength in upper and lower extremities.Nontender calf bilaterally. Calf difference: widest circumference Right: 62cm, Left: 55cm BACK: No vertebral or costovertebral angle tenderness NEURO: CN II-XII grossly intact. Patellar reflexes 2+ bilaterally. SKIN: warm and dry, no rashes or concerning moles Data: Office Visit on 01/12/16 HCG URINE QUALITATIVE - POINT OF CARE (AMB) STL Result Value Ref Range HCG Qual Urine Negative Negative HCG Urine QC NEG NEGATIVE NEGATIVE - POSITIVE HCG Urine QC POS POSITIVE NEGATIVE - POSITIVE Expiration Date Lot Number [id number] Assessment & Plan: (N92.6) Irregular periods/menstrual cycles (primary encounter diagnosis) Plan: Discussed with patient that with her weight loss, she may not have as much endogenous estrogen as she had before, so she's having more breakthrough bleeding; will change to sprintec, which has a little more estrogen. Call us if there is any intolerable side effects. HCG URINE QUALITATIVE - POINT OF CARE (AMB) STL, norgestimate-ethinyl estradiol (SPRINTEC 28) 0.25-35 MG-MCG tablet (F41.8) Situational anxiety Plan: Discussed with patient since she gets anxiety mainly before and after work, there is no need for medication for now, but I encouraged counseling, which she is agreeable to. Referred to behavioral health, also gave information for [facility]. AMB REFERRAL TO BEHAVIORAL HEALTH (F51.04) Psychophysiological insomnia Plan: I agree with patient that this is partially due to anxiety. We will monitor as she works on handling anxiety better through counseling, instead of trying any new medications. (E66.01) Morbid obesity due to excess calories Plan: Commended patient on her weight loss efforts so far. Encouraged to continue the good work of eating healthy and getting regular exercise. Continue to monitor calf difference, but since she's right-handed, she may be right- legged and thus producing a difference; no work-up at this time, since it's already getting less different and asymptomatic. (Z68.42) BMI 45.0-49.9, adult Plan: See above (I34.1) Mitral valve prolapse Plan: Continue metoprolol for control of palpitation related to stress and anxiety. Discussed with patient, according to most recent guidelines, she no longer needs prophylactic antibiotics before routine dental cleaning. (Z23) Need for HPV vaccination Plan: HPV VACCINE, 4 VALENT, IM Will try to get recent lab records from past PCP and see if we need to follow up on, for example, cholesterol screening. Return in about 1 month (around 02/11/2016) for WWE. Malena Munoz MD 01/12/2016 7:12 PM Health Maintenance Due Topic Date Due ??? HPV VACCINES (1 of 3 - Female/Unknown 3 Dose Series) 2001 ??? DTAP/TDAP/TD VACCINES (1 - Tdap) 2009 ??? DYSLIPIDEMIA SCREENING Q5 YR 2010 ??? PAP SMEAR Q3 YR 12/16/2011 * Maria Fernanda Delgado - 01/12/2016 11:18 AM CDT Leti Soto here to establish care and discuss BC. documented in this encounter Plan of Treatment Not on file documented as of this encounter Procedures Procedure Name Priority Date/Time Associated Diagnosis Comments HCG URINE QUALITATIVE - POINT OF CARE (AMB) STL Routine 01/12/2016 Irregular periods/menstrual cycles documented in this encounter Results * HCG URINE QUALITATIVE - POINT OF CARE (AMB) STL (01/12/2016) HCG Qual Urine Negative Negative HCG Urine QC NEG NEGATIVE NEGATIVE - POSITIVE HCG Urine QC POS POSITIVE NEGATIVE - POSITIVE Expiration Date Lot # [id number] Urine specimen (specimen) URINE / Unknown 01/12/2016 Malena Munoz MD LAB - POINT OF CARE ORDERABLES documented in this encounter Visit Diagnoses Diagnosis Irregular periods/menstrual cycles- Primary Irregular menstrual cycle Situational anxiety Other anxiety states Psychophysiological insomnia Persistent disorder of initiating or maintaining sleep Morbid obesity due to excess calories (HCC) BMI 45.0-49.9, adult (HCC) Body Mass Index 45.0-49.9, adult Mitral valve prolapse Mitral valve disorders Need for HPV vaccination Need for prophylactic vaccination and inoculation against other viral diseases documented in this encounter Care Teams Prefitter Relationship Specialty Start Date End Date Malena Munoz MD PCP - General Family Medicine 01/12/16 04/03/19 documented as of this encounter
--- OUTSIDE RECORDS SUMMARY | 2024-10-07 02:46 | XMS_ITS | Encounter Summary ---
Author Organization [facility] Address [address] [facility] [place] [address] Care Team Providers Care Fur Weigher Name Role Phone Malena Munoz MD Primary Care Provider [phone] Reason for Visit * Reason Comments Well Women Exam Encounter Details Date Type Department Care Team (Late st Contact Info) Description 08/15/2018 10:00 AM BRAND DIRECTOR Office Visit [facility] - Family Medicine [address] [place] [phone] [place] [address] [facility] [address] [place] [address] Physical exam, routine (Primary Dx); Mitral valve prolapse; Irregular periods/menstrual cycles; Psychophysiological insomnia; Class 3 severe obesity due to excess calories without serious comorbidity with body mass index (BMI) of 40.0 to 44.9 in adult (HCC) Social History Tobacco Use Types Packs/Day Years Used Date Smoking Tobacco: Never Smokeless Tobacco: Never Alcohol Use Standard Drinks/Week Comments Yes 0 (1 standard drink = 0.6 oz pur e alcohol) occasional vodka Sex and Gender Information Value Date Recorded Sex Assigned at Female 01/03/2022 5:41 PM CDT Gender Identity Female 01/03/2022 5:41 PM CDT Sexual Orientation Bisexual 01/03/2022 5: 41 PM CDT documented as of this encounter Last Filed Vital Signs Vital Sign Reading Time Taken Comments Blood Pressure 113/58 08/15/2018 10:12 AM BRAND DIRECTOR Pulse 61 08/15/2018 10:12 AM BRAND DIRECTOR Temperature 36.6 ??C (97.9 ??F) 08/15/2018 10:[address] Respiratory Rate - - Oxygen Saturation 100% 08/15/2018 10:12 AM BRAND DIRECTOR Inhaled Oxygen Concentration - - Weight 117.9 kg (260 lb) 08/15/2018 10:12 AM BRAND DIRECTOR Height 167.6 cm (5' 6 ) 08/15/2018 10:12 AM BRAND DIRECTOR Body Mass Index 41.97 08/15/2018 10:12 AM BRAND DIRECTOR documented in this encounter Patient Instructions * Patient Instructions* Malena Munoz MD - 08/15/2018 10:55 AM BRAND DIRECTOR You're due for Well Woman Exam with pap smear after 01/2019 Your calf measurements today: Left 49 cm (down from 53 cm in 03/22/2017) Right 55.5 cm (down from 59 cm) The Obesity Code by Melvin Hernandez MD D DIRECTOR documented in this encounter Progress Notes * Malena Munoz MD - 08/15/2018 10:27 AM CST History & Physical HPI: Leti Soto is a 27 y.o. White/ female here today for routine physical exam. Accompanied by: self Also present: JOSE Bella LMP: 08/06/2018, crampy Contraception: OCP Denies changes to health in past year. Obesity Doing boxing 1 hr 3/wk and has a bag for garage; also kickboxing, walking dog daily, some muay yi Wt fluctuated between 245 to 262 lb this past year Counting calories, lower carb diet, but frustrated her weight is not changing, although she noticesclothes and skin sagging more, feels more toned 6-7 hours of sleep at night Stopped Phentermine last year because she felt she was getting to obsessive with weighing; denies problems with it and not opposed to trying it again Anxiety Going to therapy once a week Denies personal marilia Headache Headache recently but just got off period Worked a lot last week Better with rest, Excedrin Not as bad as previous headaches Irregular periods Tolerating OCP without problems; remembers to take pill daily. Thought perhaps Estarylla needs prior auth? Monogamous for over 2 years; on OCP and no condom use, also pull out method Will rent a house; feels safe with Geronimo MVP Denies symptoms; tolerating metoprolol Review of Systems: Constitutional: Denies fatigue, fevers Psych: See above Head: Denies headaches Eyes: Denies vision changes ENT: Denies nasal congestion/drainage, sinus pain or sore throat. Cardiovascular: Denies chest pain, palpitations Respiratory: Denies cough, shortness of breath Gastrointestinal: Denies abdominal pain, nausea, vomiting, black or bloody stools. Constipation 3 days ago, better with increased water intake Genito-Urinary: Denies dysuria or hematuria; denies vaginal discharge or abnormal spotting; denies pain with sexual intercourse Musculoskeletal: Denies joint or muscle pain Neurological: Denies dizziness, numbness/tingling or weakness Skin: Denies skin lesions or rashes Past Medical History: Diagnosis Date ??? NEGATIVE PAST MEDICAL HISTORY - SEE PROBLEM LIST Past Surgical History: Procedure Laterality Date ??? Cholecystectomy, Laparoscopic 2008 ??? LASIK SURGERY Bilateral 11/2016 ??? [facility] Tooth Extraction Current Outpatient Prescriptions Medication ??? norgestimate-ethinyl estradiol (ESTARYLLA) 0.25-35 MG-MCG tablet ??? metoprolol succinate XL 24hr (TOPROL XL) 50 MG tablet ??? diphenhydrAMINE (BENADRYL) 25 MG capsule No current facility-administered medications for this visit. Allergies Allergen Reactions ??? Tramadol Other Shaky, increased heart rate, sweating. ??? Penicillins Rash Family History Problem Relation [...] Other 2 maternal great aunts Social History Social History ??? Marital status: Single Spouse name: N/A ??? Number of children: 0 ??? Years of education: 16 Occupational History ??? 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 Smoking status: Never Smoker ??? Smokeless tobacco: Never Used ??? Alcohol use 0.0 oz/week 0 Standard drinks or equivalent per week Comment: occasional vodka ??? Drug use: No ??? Sexual activity: Yes Partners: Male Other Topics Concern ??? Not on file Social History Narrative Born and raised in [place], [place] Moved in with boyfriend of 1 year in 05/2017 Exercise: 3 times a week Diet: 1600 calorie diet, 90 oz water daily Caffeine: maybe 2 cups coffee a day, 1-2 Diet soda occasionally; usually only when she's working Spirituality: Non-temple Caodaism Exam: BP 113/58 Pulse 61 Temp 97.9 ??F (36.6 ??C) (Oral) Ht 1.676 m (5' 6 ) Wt 117.9 kg (260 lb) SpO2 100% BMI 41.97 kg/m2 Wt Readings from Last 3 Encounters: 08/15/18 117.9 kg (260 lb) 07/02/18 121.6 kg (268 lb) 10/01/17 117.9 kg (260 lb) Bilateral calf measurement: Left 49 cm (down from 53 cm in 02/2017) Right 55.5 cm (down from 59 cm in 02/2017) GENERAL: Well groomed, well nourished, good hygiene, obese, no acute distress PSYCH: Alert & oriented, normal mood, affect, insight EYE: Conjunctiva normal bilaterally, pupils equal and reactive to light bilaterally, lids and orbits normal appearing ENT: Auditory canals without lesions bilaterally, TMs visualized to be pearly fine and without erythema or fluid. Patent nares. Good dentition. Posterior pharynx unremarkable. LYMPH: No [...] and symmetric strength in upper and lower extremities.Right calf larger than left in circumference, which is chronic. BACK: No vertebral or costovertebral angle tenderness NEURO: CN II-XII grossly intact. Patellar reflexes 2+ bilaterally. SKIN: warm and dry, no rashes or concerning moles. Notable loose skin over back bilaterally. Mild pink contusion over right knee from recent fall Assessment & Plan: (Z00.00) Physical exam, routine (primary encounter diagnosis) Plan: Doing well. Continue to see counselor, eat healthy, and get regular exercise. No lab needed today. Due for pap after 01/2019. (I34.1) Mitral valve prolapse Plan: Stable. Continue metoprolol. metoprolol succinate XL 24hr (TOPROL XL) 50 MG tablet (N92.6) Irregular periods/menstrual cycles Plan: Doing well on OCP. anesthesiologist assistant informed me prior authorization is not required; pharmacy needs to run prescription under patient's contraceptive plan. norgestimate-ethinyl estradiol (ESTARYLLA) 0.25-35 MG-MCG tablet (F51.04) Psychophysiological insomnia Plan: Continue to work with counselor to improve anxiety. (E66.01, Z68.41) Class 3 severe obesity due to excess calories without serious comorbidity with body mass index (BMI) of 40.0 to 44.9 in adult Plan: Refer to medical weight loss management by Dr. Welch for information, resources, and advice. Patient willing to try phentermine again or a different agent. AMB REFERRAL TO WEIGHT LOSS CLINIC Return in about 1 year (around 08/15/2019) for WWE. Malena Munoz MD 08/16/2018 1:38 PM There are no preventive care reminders to display for this patient. D DIRECTOR * Nida Negrete - 08/15/2018 10:13 AM CST Leti Soto Chief Complaint Patient presents with ??? Well Women Exam OK with PA student. D DIRECTOR documented in this encounter Plan of Treatment Not on file documented as of this encounter Visit Diagnoses Diagnosis Physical exam, routine- Primary Routine general medical examination at a health care facility Mitral valve prolapse Mitral valve disorders Irregular periods/menstrual cycles Irregular menstrual cycle Psychophysiological insomnia Persistent disorder of initiating or maintaining sleep Class 3 severe obesity due to excess calories without serious comorbidity with body mass index (BMI) of 40.0 to 44.9 in adult (HCC) documented in this encounter Care Teams Fur Weigher Relationship Specialty Start Date End Date Malena Munoz MD PCP - General Family Medicine 01/12/16 04/03/19 documented as of this encounter
--- OUTSIDE RECORDS SUMMARY | 2024-10-07 02:46 | XMS_ITS | Encounter Summary ---
Author Organization [facility] Address [address] [facility] [place] [address] Care Team Providers Care Immigration Investigator Name Role Phone Malena Munoz MD Primary Care Provider [phone] Reason for Visit * Reason Onset Date Comments Dysuria 07/02/2018 Blood in urine 07/02/2018 Encounter Details Date Type Department Care Team (Late st Contact Info) Description 07/02/2018 Telephone [facility] - Family Medicine [address] [place] [address] [place] [address] [facility] [address] [place] [phone] Dysuria; Blood in urine Social History Tobacco Use Types Packs/Day Years [...] Telephone Encounter - Malena Munoz MD - 07/02/2018 3:34 PM CDT Seen in clinic today * Telephone Encounter - Korin Damian RN - 07/02/2018 9:20 AM CDT Pt had sx of urgency and dysuria on Sat morning - Took Azo - symptoms resolved. Calling today w sudden onset this morning of frequency, dysuria, small and med blood clots in urine. No hx of kidney stones. Does have left flank, back pain. Temp has not been taken but feels like she is having chills . Advised need to come in for N.V. for U.A. - appt scheduled for 2:30 PM Please advise if additional advise is needed. documented in this encounter Plan of Treatment Not on file documented as of this encounter Visit Diagnoses Not on filedocumented in this encounter Care Teams Immigration Investigator Relationship Specialty Start Date End Date Malena Munoz MD PCP - General Family Medicine 01/12/16 04/03/19 documented as of this encounter
--- OUTSIDE RECORDS SUMMARY | 2024-10-07 02:46 | XMS_ITS | Encounter Summary ---
Author Organization [facility] Address [address] [facility] [place] [address] Care Team Providers Care Comparator Operator Name Role Phone Malena Munoz MD Primary Care Provider [phone] Reason for Visit * Reason Onset Date Comments MEDICATION REFILL 01/23/2018 Encounter Details Date Type Department Care Team (Late st Contact Info) Description 01/23/2018 Refill [facility] - Family Medicine [address] [place] [phone] Carol Dodson, CUSTOMER SUCCESS MANAGER REFILL Social History Tobacco Use Types Packs/Day [...] Miscellaneous Notes * Telephone Encounter - Carol Dodson, RN - 01/23/2018 8:54 AM CDT Images from the original note were not included. Leti Soto to Malena Munoz MD ?? 01/23/18 1:03 AM Hello, I have run into a slight problem. I was cleaning my bedroom/bedside table and I believe I threw away a 1 month pack of my control. I tried to find the bag to look for it but I was unsuccessful.Since I got my prescription last in a three month block I had an extra one to continue to take but now I don't have a pack for next month. Is there anyway I can renew my prescription sooner? Feel free to call me with any further questions or concerns. Thank you! -Yesenia Requested Prescriptions Pending Prescriptions Disp Refills ??? norgestimate-ethinyl estradiol (MONONESSA) 0.25-35 MG-MCG tablet 1 packet 0 Sig: Take 1 tablet by mouth once daily Last appt: 08/31/17 Next appt: none Number of cancel or no shows in the last 12 months: 2 Allergies have been reviewed. Correct pharmacy is populated. Please sign RX and close encounter. documented in this encounter Plan of Treatment Not on file documented as of this encounter Visit Diagnoses Not on filedocumented in this encounter Care Teams Comparator Operator Relationship Specialty Start Date End Date Malena Munoz MD PCP - General Family Medicine 01/12/16 04/03/19 documented as of this encounter
--- OUTSIDE RECORDS SUMMARY | 2024-10-07 02:46 | XMS_ITS | Encounter Summary ---
Author Organization [facility] Address [facility] [facility] [place] [address] Care Team Providers Care Diffuser Operator Name Role Phone Malena Munoz MD Primary Care Provider [phone] Reason for Visit * Reason Comments Bladder infection Encounter Details Date Type Department Care Team (Latest Contact Info) Description 07/02/2018 2:30 PM CDT Clinical Support [facility] [address] [place] [phone] Urinary frequency Social History Tobacco Use Types Packs/Day Years [...] PM CDT documented as of this encounter Progress Notes * Nida Negrete - 07/02/2018 2:14 PM CDT Leti Soto here for UA. C/o frequent urination, flank pain, chills, and blood clots in urine and when she wipes. Started this morning. Had urgency on Monday. Took OTC AZO and felt better the rest of the day. Patient seen as OV. documented in this encounter Plan of Treatment Not on file documented as of this encounter Procedures Procedure Name Priority Date/Time Associated Diagnosis Comments URINALYSIS AUTO - POINT OF CARE (AMB) STL Routine 07/02/2018 Urinary frequency documented in this encounter Results * URINALYSIS AUTO - POINT OF CARE (AMB) STL (07/02/2018) Clarity UA POCT Cloudy Color UA POCT Dark Yellow Leukocyte UA 2+ Negative Nitrite UA POCT Negative Negative Urobilinogen UA 0.2 0.1 - 1.0 Protein UA POCT 2+ Negative pH UA 6.0 5.0 - 8.0 pH units Blood UA 3+ Negative Specific [place] UA POCT 1.030 1.002 - 1.030 Ketone UA Negative Negative Bilirubin UA POCT Negative Negative Glucose UA Negative Negative Expiration Date 08/04/2019 Lot # [id number] QC Verified Yes Yes Urine URINE / Unknown 07/02/2018 Malena Munoz MD LAB - POINT OF CARE ORDERABLES documented in this encounter Visit Diagnoses Diagnosis Urinary frequency- Primary documented in this encounter Care Teams Diffuser Operator Relationship Specialty Start Date End Date Malena Munoz MD PCP - General Family Medicine 01/12/16 04/03/19 documented as of this encounter
--- OUTSIDE RECORDS SUMMARY | 2024-10-07 02:46 | XMS_ITS | Encounter Summary ---
Author Organization [facility] Address [address] [facility] [place] [address] Care Team Providers Care Silver Service Waiter Name Role Phone Malena Munoz MD Primary Care Provider [phone] Reason for Visit * Reason Onset Date Comments Question 04/13/2017 Encounter Details Date Type Department Care Team (Late st Contact Info) Description 04/13/2017 Telephone [facility] - Family Medicine [address] [place] [address] [place] [address] [facility] [address] [place] [address] Question Social History Tobacco Use Types Packs/Day Years [...] Telephone Encounter - Malena Munoz MD - 04/13/2017 10:19 AM CDT Phentermine rx sent to pharmacy. * Telephone Encounter - Alejandra Luna - 04/13/2017 9:16 AM CDT The patient is calling back to let Dr. Munoz know that she is willing to try Phentermine by itself. It is ok to send the prescription to the pharmacy on file. documented in this encounter Plan of Treatment Not on file documented as of this encounter Visit Diagnoses Diagnosis Morbid obesity due to excess calories (HCC) BMI 45.0-49.9, adult (HCC) Body Mass Index 45.0-49.9, adult documented in this encounter Care Teams Silver Service Waiter Relationship Specialty Start Date End Date Malena Munoz MD PCP - General Family Medicine 01/12/16 04/03/19 documented as of this encounter
--- OUTSIDE RECORDS SUMMARY | 2024-10-07 02:46 | XMS_ITS | Encounter Summary ---
Author Organization [facility] Address [address] [place] [address] Care Team Providers Care Retail Cosmetics Sales Counter Manager Name Role Phone Malena Munoz MD Primary Care Provider [phone] Reason for Referral * Cardiac (Routine) - Closed Specialty Diagnoses / Procedures Referred By Deshawn t Referred To Contact Cardiology Diagnoses Mitral valve prolapse Procedures ECHOCARDIOGRAM 2D WITH DOPPLER Ayanna Luna DO [address] [place] [address] [address] [place] [address] Referral ID Status Reason Start Date Expiration Date Visits Re quested Visits Authorized [id number] Closed 01/21/2019 07/20/2019 1 1 Reason for Visit * Cardiac (Routine) - Closed Specialty Diagnoses / Procedures Referred By Deshawn chávez Referred To Contact Cardiology Diagnoses Mitral valve prolapse Procedures ECHOCARDIOGRAM 2D WITH DOPPLER Ayanna Luna DO [address] [place] [address] [address] [place] [address] Referral ID Status Reason Start Date Expiration Date Visits Re quested Visits Authorized [id number] Closed 01/21/2019 07/20/2019 1 1 Encounter Details Date Type Department Care Team (Late st Contact Info) Description 02/04/2019 8:45 AM CDT - 02/04/2019 11:59 PM CDT Hospital Encounter [facility] [address] [place] [address], [address] [place] [address] Ayanna Luna DO [address] [facility] [address] [place] [address] Discharge Disposition: Home or Self Care Social [...] No 11/26/2018 documented as of this encounter Medications at [...] as of this encounter Progress Notes * Coby Kee - 02/04/2019 11:59 PM CDT S/w pt regarding Echo results. Informed pt that her results were good. EF at 55- 65% with no abnormalities found. Patient states understanding and has no questions or concerns. Coby Kee 02/06/2019 2:24 PM documented in this encounter Plan of Treatment Not on file documented as of this encounter Procedures Procedure Name Priority Date/Time Associated Diagnosis Comments ECHOCARDIOGRAM 2D WITH DOPPLER Routine 02/04/2019 8:47 AM CDT Mitral valve prolapse documented in this encounter Results * ECHOCARDIOGRAM 2D WITH DOPPLER (02/04/2019 8:47 AM CDT) 02/04/2019 8:47 AM CDT Narrative [facility] - 02/04/2019 5:49 PM CDT [facility] [address] [place] [address] Transthoracic Echocardiogram 2D, M-mode, Doppler, and Color Doppler Patient: GEENA SOTO MR number: [id number] Height: 66 in Weight: 299.4 lb BSA: 2.38 m?? Study date: 04-Feb-2019 : 1990 Age: 28 years Gender: Female Race: Allergies: TRAMADOL, PENICILLINS Wire Photo Operator: ??SOTERO Deluna Referring Physician: ??Ayanna Luna DO Referring Physician: ??Malena Munoz MD Referring [...] Procedure: The study was performed in the [facility]. The transthoracic approach was used. The study [...] Note Hunter Barbosa Jr., MD - 02/04/2019 [facility] [address] [place] [address] Transthoracic Echocardiogram 2D, M-mode, Doppler, and Color Doppler Patient: GEENA SOTO MR number: [id number] Height: 66 in Weight: 299.4 lb BSA: 2.38 m?? Study date: 04-Feb-2019 : 1990 Age: 28 years Gender: Female Race: Allergies: TRAMADOL, PENICILLINS Wire Photo Operator: SOTERO Deluna Referring Physician: Ayanna Luna DO [...] Procedure: The study was performed in the [facility]. The transthoracic approach was used. The study [...] 04-Feb-2019 17:48:58 Ayanna Luna DO ECHO ORDERABLES Performing Organization Address City/State/[facility] Co de Phone Number [facility] [address] [place] [address] documented in this encounter Visit Diagnoses Diagnosis Mitral valve prolapse Mitral valve disorders documented in this encounter Care Teams Retail Cosmetics Sales Counter Manager Relationship Specialty Start Date End Date Malena Munoz MD PCP - General Family Medicine 01/12/16 04/03/19 documented as of this encounter
--- OUTSIDE RECORDS SUMMARY | 2024-10-07 02:46 | XMS_ITS | Encounter Summary ---
Author Organization [facility] Address [address] [facility] [place] [address] Care Team Providers Care Community Fundraiser Name Role Phone Malena Munoz MD Primary Care Provider [phone] Reason for Visit * Reason Onset Date Comments Appointment 01/05/2017 Encounter Details Date Type Department Care Team (Late st Contact Info) Description 01/05/2017 Telephone [facility] - Family Medicine [address] [place] [address] [place] [address] [facility] [address] [place] [address] Appointment Social History Tobacco Use Types Packs/Day [...] Telephone Encounter - Malena Munoz MD - 01/06/2017 2:02 PM CDT rx sent. Thank you. * Telephone Encounter - Nida Negrete - 01/06/2017 10:09 AM CDT Spoke with patient. States she will call back on Monday and make an appointment because she doesn'thave her schedule with her. She does need a refill on control. * Telephone Encounter - Mlaena Munoz MD - 01/05/2017 12:33 PM CDT I'm glad to hear she's doing well. Please inform patient I usually do see patients once a year for routine physical if they are taking any prescribed medication, so I would appreciate her coming in within the next month for a physical exam, but I can give her an additional refill if she needs it before her appointment with me. Thank you. * Telephone Encounter - Abida Bautista - 01/05/2017 11:[address] Munoz, patient was only coming in tomorrow regarding control follow up. Patient states she is doing fine and at this point only needs refills on the control. She will schedule if you doneed to see her, but everything is going well. documented in this encounter Plan of Treatment Not on file documented as of this encounter Visit Diagnoses Diagnosis Irregular periods/menstrual cycles Irregular menstrual cycle documented in this encounter Care Teams Community Fundraiser Relationship Specialty Start Date End Date Malena Munoz MD PCP - General Family Medicine 01/12/16 04/03/19 documented as of this encounter
--- OUTSIDE RECORDS SUMMARY | 2024-10-07 02:46 | XMS_ITS | Encounter Summary ---
Author Organization [facility] Address [address] [facility] [place] [address] Care Team Providers Care Stain Applicator Name Role Phone Malena Munoz MD Primary Care Provider [phone] Reason for Visit * Reason Comments Refill Request Encounter Details Date Type Department Care Team (Late st Contact Info) Description 05/08/2017 Refill [facility] - Family Medicine [address] [place] [address] [place] [address] [facility] [address] [place] [id number] Refill Request Social History Tobacco Use Types [...] encounter Miscellaneous Notes * Telephone Encounter - Anneliese Samano - 05/08/2017 5:16 PM CDT PT notified. * Telephone Encounter - Malena Munoz MD - 05/08/2017 5:02 PM CDT Please inform patient I will wait to refill at scheduled appt on 05/12/2017 after re-evaluation on how well the medication is working for her. Thanks. * Telephone Encounter - Anneliese Samano - 05/08/2017 11:26 AM CDT Requested Prescriptions Pending Prescriptions Disp Refills ??? phentermine (IONAMINE) 15 MG capsule [Pharmacy Med Name: PHENTERMINE HCL 15MG CAPSULES] 30 Cap 0 Sig: TAKE ONE CAPSULE BY MOUTH DAILY BEFORE BREAKFAST Last appt: 04/12/17 Next appt: 05/12/17 Number of cancel or no shows in the last 12 months: 0 Allergies have been reviewed. YES Correct pharmacy is populated. YES Please sign RX and close encounter. documented in this encounter Plan of Treatment Not on file documented as of this encounter Visit Diagnoses Not on filedocumented in this encounter Care Teams Stain Applicator Relationship Specialty Start Date End Date Malena Munoz MD PCP - General Family Medicine 01/12/16 04/03/19 documented as of this encounter
--- OUTSIDE RECORDS SUMMARY | 2024-10-07 02:46 | XMS_ITS | Encounter Summary ---
Author Organization [facility] Address [address] [facility] [place] [address] Care Team Providers Care Payroll And Benefits Coordinator Name Role Phone Malena Munoz MD Primary Care Provider [phone] Reason for Visit * Reason Onset Date Comments MEDICATION REFILL 06/28/2016 Encounter Details Date Type Department Care Team (Late st Contact Info) Description 06/28/2016 Refill [facility] - Family Medicine [address] [place] [address] [place] [address] [facility] [address] [place] [address] MEDICATION REFILL Social History Tobacco Use Types [...] on filedocumented in this encounter Care Teams Payroll And Benefits Coordinator Relationship Specialty Start Date End Date Malena Munoz MD PCP - General Family Medicine 01/12/16 04/03/19 documented as of this encounter
--- OUTSIDE RECORDS SUMMARY | 2024-10-07 02:46 | XMS_ITS | Encounter Summary ---
Author Organization [facility] Address [address] [facility] [place] [address] Care Team Providers Care Water Plant Operator Name Role Phone Unavailable Primary Care Provider Unavailabl e Reason for Visit * Reason Comments VOMITING DURING Nausea Decreased Movement Encounter Details Date Type Department Care Team (Latest Contact Info) Description 04/04/2019 10:38 AM CDT - 04/04/2019 4:28 PM CDT Hospital Encounter [facility] [address] [place] [id number] Rey Mar MD [address] [address] Discharge Disposition: Home or Self [...] Sign Reading Time Taken Comments Blood Pressure 110/70 04/04/2019 1:23 PM CDT Pulse - - Temperature - - Respiratory Rate - - Oxygen Saturation - - Inhaled Oxygen Concentration - - Weight 140.6 kg (310 lb) 04/04/2019 10:42 AM CDT Height 167.6 cm (5' 6 ) 04/04/2019 10:39 AM CDT Body Mass Index 50.04 04/04/2019 10:39 AM CDT documented in this encounter Functional Status Functional Status Response Date of Assess ment Is person deaf or have serious hearing difficult y? No 04/04/2019 Is person blind or have serious difficulty seein g? No 04/04/2019 Does person have serious dif ficulty walking/climbing stairs? No 04/04/2019 Does person have difficulty dressing/bathing? No 04/04/2019 Does person have difficulty doing errands alone? No 04/04/2019 Cognitive Status Response Date of Assessm ent Does person have difficulty concentrating/remembering/making decisions? No 04/04/2019 documented as of this encounter Discharge Instructions * Discharge Instructions* Katie Redding RN - 04/04/2019 4:26 PM CDT UNDELIVERED PATIENT DISCHARGE INSTRUCTIONS CALL YOUR DOCTOR [...] diarrhea. Important Telephone Number: [facility]: [phone] documented in this encounter Medications at Time [...] as of this encounter Progress Notes * Rey Mar MD - 04/04/2019 4:28 PM CDT OB ATTENDING Pain OK. well. AVSS ABD soft, nontender, fundus firm EXT nontender Hgb 8.9 A: PPD#1, doing well. P: Routine care. Plan home tomorrow. documented in this encounter H&P Notes * Rey Mar MD - 04/04/2019 10:53 AM CDT Addendum: Staff was using incorrect contact information for me. Problem has been rectified. PGY1 Obstetric H&P Note 04/04/2019, 10:53 AM CC: Nausea, vomiting, decreased FM HPI: 28 year old at 34w3d gestation Dating: LMP c/w 8 week ultrasound Estimated Date of Delivery: 05/13/19 care: is with Dr. Mar Patient's is complicated by: Patient Active Problem List Diagnosis Date Noted ??? Status post fall 02/12/2019 Priority: Not [...] Not Prioritized Patient presents with complaints of nausea, vomiting and decreased movements. Nausea started at 2 ppm yesterday followed by non-bloody, non-bilious vomiting at 7 pm x5. This morning she stated having watery, non-bloody diarrhea x4. Patient has not taken anything at home. Patient is unable to tolerate PO intake. 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 The decreased movements started this morning at 5 AM. This is irregular for her as her baby is usually very active . Patient denies any problems with this . negative Ctx. negative LOF. negative VB. decreased FM. Review of Symptoms: A comprehensive review of systems was negative except as stated above Obstetrical History: OB History Para Term AB Living 1 SAB TAB Ectopic Multiple Live Births # Outcome Date GA Lbr Bimal/2nd Weight Sex Delivery Anes PTL Lv 1 Current Gynecologic History: History of abnormal pap smear: no History of procedure on cervix: no STI History: Denies gonorrhea, chlamydia, trichomonas, herpes, HIV, syphilis Medical History: Past Medical History: Diagnosis Date ??? NEGATIVE PAST MEDICAL HISTORY - SEE PROBLEM LIST She denies history of hypertension, diabetes, asthma or bleeding disorders. Psych History: Depression: No Anxiety: Yes, never on any medication Bipolar disorder: No Schizophrenia: No Surgeries: Past Surgical History: Procedure Laterality Date ??? Cholecystectomy, Laparoscopic 2008 ??? LASIK SURGERY Bilateral 11/2016 ??? [place] Tooth Extraction Current Medications: Prior to Admission medications Medication Sig Start Date End Date Taking? Authorizing Provider diphenhydrAMINE (BENADRYL) 25 MG capsule Take 25 mg by mouth every 6 hours as needed for Itching Reported on 12/22/2016 Fausto Helm MD docusate sodium (COLACE) 100 MG capsule Take 1 capsule by mouth 2 times daily 11/26/18 Sabino Toscano MD omeprazole (PRILOSEC) 20 MG capsule Take 20 mg by mouth daily before breakfast Yes Fausto Helm MD Vit-Fe Fumarate-FA ( VITAMIN) 28-0.8 MG tablet Take 1 tablet by mouth once daily Yes Provider, Historical, MD raNITIdine (ZANTAC) 150 MG capsule Take 150 mg by mouth once daily Provider, MD Fausto Allergies: Allergies Allergen Reactions ??? Tramadol Other [...] or history of blood clots. No history of breast, ovarian, or uterine cancer Objective: No data found. Ultrasound: RICH 17.27 Assessment/ Non-Stress Test Baseline: 145 beats/minute moderate variability Reactive Contractions: none Decelerations: none Physical Exam General: no acute distress, alert and oriented x3 HEENT: extra-occular movements intact, moist mucous membranes Heart: regular rate and rhythm, no rubs/murmurs/gallops Lungs: clear to auscultation bilaterally, no wheezing/crackles Abdomen: gravid, soft, non-tender Extremities: non-tender bilaterally, no edema bilaterally Neuro: cranial nerves grossly intact, strength and sensation intact and symmetric bilaterally Psych: appropriate affect Current Lab Review: Hospital Encounter on 04/04/19 GLUCOSE - POINT OF CARE Result Value Ref Range Glucose WB/POC 84 70 - 106 mg/dL Specimen Type Arterial/Capillary labs will request if admit Assessment/Plan: 28 year old at 34w3d gestation 1) Nausea and Vomitting in - 1L D5 LR for positive ketones and intolerance to PO intake - Blood Glucose checked and 84 before giving D5 - Zofran for nausea - Ibuprofen 1000 mg - Patient tolerated PO challenge - Educated patient on hydration during 2) Decreased Movement - Category 1 Heart Tracing - RICH: 17.27 Dispo: home with Rx for Zofran, f/u with ObGyn as scheduled Attempted to contact Dr. Mar at home, office, beeper and cell phone and left three messages. Dueto inability to reach him and the patient's long wait and desire to go home she was cleared by the staff at [facility]. Discussed with Drs. Munoz and Stuart Paris MD 04/04/2019 10:53 AM documented in this encounter Procedure Notes * Maggi Paris MD - 04/04/2019 4:27 PM CDTAssociated Order(s): NONSTRESS TEST Name: Leti Soto Date of : 1990 Today's Date: 04/04/2019 NST RESULTS ([facility]) OBJECTIVE FINDINGS , , , BP: 110/70 OBJECTIVE FINDINGS OTHER INFORMATION Crystal Miner RN PGY1 MANUFACTURING ADVISOR Progress Note FHR: baseline 145 bpm, moderate variability, reactive, no decelerations, reassuring TOCO: none Maggi Paris MD 04/22/2019 10:14 AM * Ruth Gordon MD - 04/04/2019 1:57 PM CDTProcedure(s): OB ULTRASOUND Bedside OB Ultrasound Indications: Patient Active Problem List: Mitral valve prolapse Irregular periods/menstrual cycles Situational anxiety Psychophysiological insomnia Morbid obesity due to excess calories BMI 40.0-44.9, adult Nausea/vomiting in Status post fall Bedside ultrasound: Presentation: vertex Placenta: anterior Amniotic fluid index 17.27, +FM, patient feels reassured FWB reassuring, continue outpatient care and testing as indicated. Ruth Gordon MD 04/04/2019 1:57 PM documented in this encounter Plan of Treatment Not on file documented as of this encounter Procedures Procedure Name Priority Date/Time Associated Diagnosis Comments IMAGING/RADIOLOGY/X RAY RESULTS ORDER 05/10/2019 10:19 AM CDT NONSTRESS TEST Routine 04/22/2019 10:14 AM CDT GLUCOSE - POINT OF CARE Routine 04/04/2019 11:14 AM CDT documented in this encounter Results * IMAGING/RADIOLOGY/XRAY RESULTS ORDER (05/10/2019 10:19 AM CDT) Anatomical Region Laterality Modality Other Narrative 05/10/2019 10:19 AM CDT Ordered by an unspecified provider. Scanned Document IMAGING * NONSTRESS TEST (04/22/2019 10:14 AM CDT) Narrative Maggi Paris MD - 04/22/2019 10:14 AM CDT Maggi Paris MD ? 04/22/2019 10:14 AM Name: ??Leti Soto Date of : ??1990 Today's Date: ??04/04/2019 ?NST RESULTS ([facility]) OBJECTIVE FINDINGS , ??, ??, BP: 110/70 OBJECTIVE FINDINGS OTHER INFORMATION Crystal Miner RN PGY1 MANUFACTURING ADVISOR Progress Note FHR: baseline 145 bpm, moderate variability, reactive, no decelerations, reassuring TOCO: none Maggi Paris MD 04/22/2019 10:14 AM aMggi Paris MD OB GYNE ORDERABLES * GLUCOSE - POINT OF CARE (04/04/2019 11:14 AM CDT) Glucose WB/POC 84 70 - 106 mg/dL 04/04/2019 12:04 PM CDT [facility] Specimen Type Arterial/C apillary 04/04/2019 12:04 PM CDT [facility] Blood BLOOD SPECIMEN / Unknown 04/04/2019 11:14 AM CDT 04/04/2019 12:04 PM CDT Rey Mar MD LAB - POINT OF CARE ORDERABLES [facility] [address] [place] [address] documented in this encounter Visit Diagnoses Diagnosis Nausea/vomiting in (HCC)- Primary Unspecified vomiting of , unspecified as to episode of care Nausea/vomiting in (HCC) Unspecified vomiting of , unspecified as to episode of care documented in this encounter Administered Medications Inactive Administered Medications - up to 3 most recent administrations Medication Order MAR Action Action Date Dose Rate Site 0.9% NaCl injection 1-10 mL 1-10 mL, Intracatheter, PRN, Other, peripheral line flush, Starting on Rebecca 04/04/19 at 1048, Until Mon04/04/19 at 1734, Flush peripheral IV catheter with 1-10 mL of normal saline before and after medications and prn to clear blood from the line or to verify patency. 0.9% NaCl injection 3 mL 3 mL, Intracatheter, EVERY 8 HOURS, 1095 doses, First dose on Mon04/04/19 at 1400, Last dose on Mon04/03/20 at 0600, Flush peripheral IV catheter with 3 mL of normal saline every 8 hours. dextrose 5% and lactated ringers ADS Med 1 dose, Starting on Rebecca 04/04/19 at 1109, Until Rebecca 04/04/19 at 1122, Created by cabinet override dextrose 5% and lactated ringers solution at 125 mL/hr, Intravenous, CONTINUOUS, Starting on Rebecca 04/04/19 at 1130, Until Rebecca 04/04/19 at 1125 $ New Bag/Syringe 04/04/2019 11:22 AM CDT 1,000 mL 125 mL/hr ondansetron (ZOFRAN) injection 4 mg 4 mg, Intravenous, ONCE, 1 dose, On Rebecca 04/04/19 at 1115, Administer over 2 to 5 minutes. $ Given 04/04/2019 11:22 AM CDT 4 mg ondansetron 4mg/2ml IJ Soln ADS Med 1 dose, Starting on Rebecca 04/04/19 at 1108, Until Rebecca 04/04/19 at 1122, Created by cabinet override documented in this encounter Active and Recently Administered Medications Times are shown in CDT. Scheduled Medication Order 04/02/2019 04/03/2019 04/04/2019 0.9% NaCl injection 3 mL(Linked Group 1) 3 mL, Intracatheter, EVERY 8 HOURS, 1095 doses, First dose on Mon04/04/19 at 1400, Last dose on Mon04/03/20 at 0600, Flush peripheral IV catheter with 3 mL of normal saline every 8 hours. 1400 (Due) dextrose 5% and lactated ringers solution at 1,000 mL/hr, Intravenous, ONCE, 1 dose, On Rebecca 04/04/19 at 1145 1145 (Due) ondansetron (ZOFRAN) injection 4 mg (COMPLETED) 4 mg, Intravenous, ONCE, 1 dose, On Rebecca 04/04/19 at 1115, Administer over 2 to 5 minutes. 1122 ($ Given - Prov ider: Crystal Miner RN) Continuous Medication Order 04/02/2019 04/03/2019 04/04/2019 dextrose 5% and lactated ringers solution (CANCELED) at 125 mL/hr, Intravenous, CONTINUOUS, Starting on Rebecca 04/04/19 at 1130, Until Rebecca 04/04/19 at 1125 1122 ($ New Bag/Syri nge - Provider: Crystal Miner RN) PRN Medication Order 04/02/2019 04/03/2019 04/04/2019 0.9% NaCl injection 1-10 mL(Linked Group 1) 1-10 mL, Intracatheter, PRN, Other, peripheral line flush, Starting on Mon04/04/19 at 1048, Until Mon04/04/19 at 1734, Flush peripheral IV catheter with 1-10 mL of normal saline before and after medications and prn to clear blood from the line or to verify patency. Linked Groups Order Group 1: SALINE LOCK, INSERT AND MAINTAIN (CANCELED) Routine, CONTINUOUS, Starting on Mon04/04/19 at 1100, Until Specified, New collection And 0.9% NaCl injection 3 mLJump to med 3 mL, Intracatheter, EVERY 8 HOURS, 1095 doses, First dose on Mon04/04/19 at 1400, Last dose on Mon04/03/20 at 0600, Flush peripheral IV catheter with 3 mL of normal saline every 8 hours. And 0.9% NaCl injection 1-10 mLJump to med 1-10 mL, Intracatheter, PRN, Other, peripheral line flush, Starting on Mon04/04/19 at 1048, Until Rebecca 04/04/19 at 1734, Flush peripheral IV catheter with 1-10 mL of normal saline before and after medications and prn to clear blood from the line or to verify patency. documented in this encounter
--- OUTSIDE RECORDS SUMMARY | 2024-10-07 02:46 | XMS_ITS | Encounter Summary ---
Author Organization [facility] Address [address] [facility] [place] [address] Care Team Providers Care Process Manager Name Role Phone Malena Munoz MD Primary Care Provider [phone] Reason for Visit * Reason Onset Date Comments Update 11/03/2016 Work Excuse 11/03/2016 Encounter Details Date Type Department Care Team (Late st Contact Info) Description 11/03/2016 Telephone [facility] Medical [facility] - Family Medicine [address] [place] [address] [place] [address] [facility] [address] [place] [id number] Update; Work Excuse Social History Tobacco Use Types Packs/Day Years [...] Telephone Encounter - Malena Munoz MD - 11/04/2016 12:42 PM DIETARY SERVICE AIDE Spoke with patient. She reports meloxicam is helping with the pain a little, left foot is now more tingling then completely numb, so she think it is helping. Took 1 dose last night and 1 dose this morning. She felt like she was limping probably more due to having worked 13 hours right before that. I reviewed the x- ray that was done this morning, there is mild osteoarthritis of the lumbar spine facet. Heat continues to help a little. I recommended continuing meloxicam and heat. I also recommend starting physical therapy and referral to orthopedic surgery for possibly injection. She will look at her insurance network and let me know where to refer her to. I recommended for her to sign up forMyChart and can update me over the weekend if she finds out from her mom a recommendation for ortho. She will be off work until Monday, so she will be able to have relative rest. I called back, and patient reports she doesn't need a note for work anymore, since she worked yesterday and only called today off. I confirmed she has [employer], so I will refer her to physical therapy at [facility]. Number given her for her to call and set uporthopedic appointment. ARY SERVICE AIDE * Telephone Encounter - Malena Munoz MD - 11/03/2016 6:10 PM CST Left message I would recommend x-ray of the back and may be left hip, depending on where her pain is now. I recommend trial of meloxicam for pain, since she can't tolerate tramadol. I also recommend referral to physical therapy and orthopedic surgery. Left message again I'll send out the meloxicam and talk to her tomorrow morning about the x-ray andfollow up plans. If symptoms worsen overnight, please go to ER or Urgent Care for evaluation. ARY SERVICE AIDE * Telephone Encounter - Carol Dodson RN - 11/03/2016 2:17 PM CST Assessment & Plan: (M54.16) Acute left lumbar [...] MG tablet, traMADol (ULTRAM) 50 MG tablet ARY SERVICE AIDE * Telephone Encounter - Krista Hazel - 11/03/2016 12:14 PM CST Pt called and stated that she is not better. She can not take the tramadol it is making her sick. She states that she still do not have any feeling in the outside of lt foot and has now started to limp. She will need a work excuse emailed to her [email or web address]. Please call pt and advise what she should do now. Thanks. ARY SERVICE AIDE documented in this encounter Plan of Treatment Not on file documented as of this encounter Results * XR LUMBAR SPINE 2 OR 3 VW (11/04/2016 10:18 AM DIETARY SERVICE AIDE) Anatomical Region Laterality Modality Spine Radiographic Laure ging 11/04/2016 10:3 0 AM DIETARY SERVICE AIDE Impressions 11/04/2016 10:32 AM DIETARY SERVICE AIDE Lumbar spine facet osteoarthritis with likely normal disc heights. Narrative 11/04/2016 10:32 AM DIETARY SERVICE AIDE Examination: Lumbar spine 2 or 3 [...] in this encounter Visit Diagnoses Diagnosis Sacroiliitis (HCC)- Primary Sacroiliitis, not elsewhere classified Low back pain radiating to left lower extremity Left hip pain Pain in joint, pelvic region and thigh Sacroiliitis (HCC) Sacroiliitis, not elsewhere classified Low back pain radiating to left lower extremity documented in this encounter Care Teams Process Manager Relationship Specialty Start Date End Date Malena Munoz MD PCP - General Family Medicine 01/12/16 04/03/19 documented as of this encounter
--- OUTSIDE RECORDS SUMMARY | 2024-10-07 02:46 | XMS_ITS | Encounter Summary ---
Author Organization [facility] Address [address] [place] [address] Care Team Providers Care Rn Med Surg Name Role Phone Malena Munoz MD Primary Care Provider [phone] Reason for Visit * Reason Comments Refill Request Encounter Details Date Type Department Care Team (Late st Contact Info) Description 05/10/2018 Refill [facility] - Family Medicine [address] [place] [address] [place] [address] [facility] [address] [place] [address] Refill Request Social History Tobacco Use Types [...] on filedocumented in this encounter Care Teams Rn Med Surg Relationship Specialty Start Date End Date Malena Munoz MD PCP - General Family Medicine 01/12/16 04/03/19 documented as of this encounter
--- OUTSIDE RECORDS SUMMARY | 2024-10-07 02:46 | XMS_ITS | Encounter Summary ---
Author Organization [facility] Address [address] [place] [address] Care Team Providers Care Real Estate Intern Name Role Phone Malena Munoz MD Primary Care Provider [phone] Reason for Visit * Reason Comments Pain Head Encounter Details Date Type Department Care Team (Late st Contact Info) Description 08/31/2017 1:30 PM SALES ACCOUNT DIRECTOR Office Visit [facility] - Family Medicine [address] [place] [phone] Ruth Fang MD [address] [place] [phone] Spasm of muscle (Primary Dx) Social History Tobacco Use Types [...] Sign Reading Time Taken Comments Blood Pressure 134/74 08/31/2017 1:48 PM SALES ACCOUNT DIRECTOR Pulse 65 08/31/2017 1:48 PM SALES ACCOUNT DIRECTOR Temperature 36.7 ??C (98 ??F) 08/31/2017 1:48 PM SALES ACCOUNT DIRECTOR Respiratory Rate - - Oxygen Saturation 100% 08/31/2017 1:48 PM SALES ACCOUNT DIRECTOR Inhaled Oxygen Concentration - - Weight 118.6 kg (261 lb 6.4 oz) 08/31/2017 1:48 PM SALES ACCOUNT DIRECTOR Height 166.4 cm (5' 5.5 ) 08/31/2017 1:48 PM SALES ACCOUNT DIRECTOR Body Mass Index 42.84 08/31/2017 1:48 PM SALES ACCOUNT DIRECTOR documented in this encounter Progress Notes * Ruth Hewitt MD - 08/31/2017 2:03 PM CST Acute Visit HPI: Leti Soto is a 26 y.o. female is here today for Chief Complaint Patient presents with ??? Pain Head 4 days ago woke up and had pain on L side of neck, thought it was from sleeping wrong Pain is 9-10 Has been stretching, heat Mom is a PT, massage did Taking excedrin, motrin, aleve Used a lidocaine patch Has been hydrating Tender to touch now, going into ear Continuing to get worse Feels like she has numbness going into her teeth ROS Feels like she might have temp Doesn't feel sick, runny nose for a few days No vision changes No radiation of pain down arm Past Medical History: Diagnosis Date ??? NEGATIVE PAST MEDICAL HISTORY - SEE PROBLEM LIST ??? phentermine (ADIPEX-P) 37.5 MG capsule ??? MONONESSA 0.25-35 MG-MCG tablet ??? metoprolol succinate XL 24hr (TOPROL XL) 50 MG tablet ??? diphenhydrAMINE (BENADRYL) 25 MG capsule Allergies Allergen Reactions ??? Tramadol Other Shaky, increased heart rate, sweating. ??? Penicillins Rash Family History Problem Relation Age of Onset ??? Depression Mother ??? Anxiety Disorder Mother ??? Hypertension Father ??? Diabetes Father ??? Heart Disease Father no NE ??? Depression Maternal Grandmother ??? Anxiety Disorder Maternal Grandmother agoraphobia ??? Diabetes Maternal Grandfather ??? Heart Disease Maternal Grandfather ??? Cancer - Breast Paternal Grandmother ??? Cancer - Breast Other 2 maternal great aunts Past Surgical History: Procedure Laterality Date ??? Cholecystectomy, Laparoscopic 2008 ??? LASIK SURGERY Bilateral 11/2016 ??? Sylvester Tooth Extraction Social History Social History ??? Marital status: Single Spouse name: N/A ??? Number of children: 0 ??? Years of education: 16 Occupational History ??? 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 Smoking status: Never Smoker ??? Smokeless tobacco: Never Used ??? Alcohol use 0.0 oz/week 0 Standard drinks or equivalent per week Comment: occasional mixed drink ??? Drug use: No ??? Sexual activity: Yes Partners: Male Other Topics Concern ??? Not on file Social History Narrative Born and raised in [place], [place] Moved in with boyfriend of 1 year in 05/2017 Exercise: 3 times a week Diet: 1600 calorie diet, 90 oz water daily Caffeine: maybe 1 cup coffee a day, 1-2 Diet soda a day; usually only when she's working Spirituality: Non-confucianism Nondenominational Exam: BP 134/74 Pulse 65 Temp 98 ??F (Oral) Ht 1.664 m (5' 5.5 ) Wt 118.6 kg (261 lb 6.4 oz) SpO2 100% BMI 42.84 kg/m2 Physical Exam Constitutional: She is well-developed, well-nourished, and in no distress. No distress. HENT: Head: Normocephalic and atraumatic. Right Ear: External ear normal. Left Ear: External ear normal. Mouth/Throat: Oropharynx is clear and moist. No oropharyngeal exudate. Neck: Neck supple. No thyromegaly present. Cardiovascular: Normal rate, regular rhythm and normal heart sounds. No murmur heard. Pulmonary/Chest: Effort normal and breath sounds normal. No respiratory distress. She has no wheezes. Abdominal: She exhibits no distension. Musculoskeletal: Cervical back: She exhibits decreased range of motion, tenderness and spasm. She exhibits no bony tenderness, no swelling, no edema, no deformity and no laceration. Absent nuchal rigidity Lymphadenopathy: She has no cervical adenopathy. Neurological: She is alert. Skin: Skin is warm and dry. No rash noted. She is not diaphoretic. No erythema. Assessment & Plan: ICD-10-CM 1. Spasm of muscle M62.838 Severe Recommend she go see chiropractor for muscle energy release Continue moist heat, NSAIDs, gentle stretching Rx given for Flexeril and Tylenol 3 Any worsening neurologic signs go to ER No problem-specific Assessment & Plan notes found for this encounter. There are no Patient Instructions on file for this visit. If symptoms do not start to improve in 48 hours or if they worsen, parent(s) are instructed to callor make an appointment or go to ER if necessary. S ACCOUNT DIRECTOR * Lis Crisostomo - 08/31/2017 1:48 PM CST Leti Soto is here for pain that started at the base of her neck 4 days ago on left side. The pain has gone from neck /shoulder area up the neck, ear, jaw line and know into her head. She says range of motion has decreased. Having trouble sleeping due to the pain. S ACCOUNT DIRECTOR documented in this encounter Plan of Treatment Not on file documented as of this encounter Visit Diagnoses Diagnosis Spasm of muscle- Primary documented in this encounter Care Teams Real Estate Intern Relationship Specialty Start Date End Date Malena Munoz MD PCP - General Family Medicine 01/12/16 04/03/19 documented as of this encounter
--- OUTSIDE RECORDS SUMMARY | 2024-10-07 02:46 | XMS_ITS | Encounter Summary ---
Author Organization [facility] Address [address] [place] [address] Care Team Providers Care Berry Grower Name Role Phone Malena Munoz MD Primary Care Provider [phone] Reason for Visit * Reason Comments Bladder infection Encounter Details Date Type Department Care Team (Late st Contact Info) Description 10/01/2017 3:20 PM CONSULTING SME Office Visit [facility] AT [address] [phone] Provider, [facility] Urinary tract infection without hematuria, site unspecified (Primary Dx) Social History Tobacco Use Types [...] Sign Reading Time Taken Comments Blood Pressure 110/76 10/01/2017 3:08 PM CONSULTING SME Pulse 79 10/01/2017 3:08 PM CONSULTING SME Temperature 36.5 ??C (97.7 ??F) 10/01/2017 3:08 PM CS T Respiratory Rate 16 10/01/2017 3:08 PM CONSULTING SME Oxygen Saturation 99% 10/01/2017 3:08 PM CONSULTING SME Inhaled Oxygen Concentration - - Weight 117.9 kg (260 lb) 10/01/2017 3:08 PM CONSULTING SME Height 167.6 cm (5' 6 ) 10/01/2017 3:08 PM CONSULTING SME Body Mass Index 41.97 10/01/2017 3:08 PM CONSULTING SME documented in this encounter Patient Instructions * Patient Instructions* Jony Sawyer APRN-CNP - 10/01/2017 3:30 PM CONSULTING SME -Take all medications as prescribed. -Push fluids, especially water. This also helps prevent future infections. -Urinate when you feel the urge. Do not hold your urine. Urinate as soon as you feel you have to. -Cranberry juice as been shown to promote healing, use at your discretion. -Make sure to always wipe from front to back after urinating. -If you are sexually active make sure to urinate Before AND After sex to help prevent bladder infections. -Avoid intercourse until your symptoms are resolved for one week. -Do not drink alcohol, caffeine, and citrus juices. These can irritate your bladder and increase your symptoms. Seek care (go to Urgent Care or ER) immediately if: ?? You are urinating very little or not at all. ?? You are vomiting. ?? You have a high fever with shaking chills. ?? You have side or back pain that gets worse. Contact your primary care doctor or TUBING MACHINE TENDER if: ?? You have a fever. ?? You have white or yellow discharge from your vagina. ?? You do not feel better after 2 days of taking antibiotics. ?? You have questions or concerns about your condition or care. ULTING SME documented in this encounter Progress Notes * Jony Sawyer APRN-CNP - 10/01/2017 3:31 PM CST Subjective: Leti Soto is a 26 y.o. female who complains of dysuria, burning with urination, frequency, urgency for 2 days. Patient complains of nothing else. Patient denies headache, stomachache, back pain, vaginal discharge. There is not any concern of sexual abuse. There is not a history of trauma to the genital area. Patient does not have a history of recurrent UTI. Patient does not have a history of pyelonephritis. Patients PCP is Malena Munoz MD Past Medical History: Diagnosis Date ??? NEGATIVE PAST MEDICAL HISTORY - SEE PROBLEM LIST Family History Problem Relation Age of Onset ??? Depression Mother ??? Anxiety Disorder Mother ??? Hypertension Father ??? Diabetes Father ??? Heart Disease Father no CA ??? Depression Maternal Grandmother ??? Anxiety Disorder Maternal Grandmother agoraphobia ??? Diabetes Maternal Grandfather ??? Heart Disease Maternal Grandfather ??? Cancer - Breast Paternal Grandmother ??? Cancer - Breast Other 2 maternal great aunts Current Outpatient Prescriptions Medication Sig Dispense Refill ??? sulfamethoxazole-trimethoprim (BACTRIM DS) 800-160 MG tablet Take 1 tablet by mouth 2 times daily for 7 days 14 tablet 0 ??? MONONESSA 0.25-35 MG-MCG tablet TAKE 1 TABLET BY MOUTH EVERY DAY 84 Tab 2 ??? metoprolol succinate XL 24hr (TOPROL XL) 50 MG tablet Take 1 Tab by mouth once daily 90 Tab 3 ??? diphenhydrAMINE (BENADRYL) 25 MG capsule Take 25 mg by mouth every 6 hours as needed for Itching Reported on 12/22/2016 No current facility-administered medications for this visit. Allergies Allergen Reactions ??? Tramadol Other Shaky, increased heart rate, sweating. ??? Penicillins Rash Social History Social History ??? Marital status: Single Spouse name: N/A ??? Number of children: 0 ??? 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 Smoking status: Never Smoker ??? Smokeless tobacco: Never Used ??? Alcohol use 0.0 oz/week 0 Standard drinks or equivalent per week Comment: occasional mixed drink ??? Drug use: No ??? Sexual activity: Yes Partners: Male Other Topics Concern ??? Not on file Social History Narrative Born and raised in [place], [place] Moved in with boyfriend of 1 year in 05/2017 Exercise: 3 times a week Diet: 1600 calorie diet, 90 oz water daily Caffeine: maybe 1 cup coffee a day, 1-2 Diet soda a day; usually only when she's working Spirituality: Non-spiritism Yazidi Review of Systems Constitutional: Negative for fatigue, fevers, chills. Respiratory: Negative Cardiovascular: Negative Genitourinary:Positive for frequency and dysuria, Negative for nocturia, urinary incontinence, hesitancy, decreased stream and hematuria Objective: BP 110/76 (BP SITE: LEFT ARM, BP POSITION: SITTING, BP CUFF SIZE: Large Adult) Pulse 79 Temp 97.7 ??F (Oral) Resp 16 Ht 1.676 m (5' 6 ) Wt 117.9 kg (260 lb) SpO2 99% BMI 41.97 kg/m2 Exam: General appearance: alert, cooperative, no distress Back: no deformity or tenderness. No cva tenderness Lungs: breath sounds normal and symmetric; no rales or wheezes Heart: regular rhythm, normal S1 and S2, without murmurs, gallops or rubs Abdomen: soft without mass, non-tender, with normal bowel sounds. No suprapubic tenderness Assessment: Encounter Diagnosis Name Primary? Urinary tract infection without hematuria, site unspecified Yes Plan: 1. Maintain adequate hydration 2. Follow up if symptoms not improving, and prn. 3. Referral placed for PCP if none on file -Take all medications as prescribed. -Push fluids, especially water. This also helps prevent future infections. -Urinate when you feel the urge. Do not hold your urine. Urinate as soon as you feel you have to. -Cranberry juice as been shown to promote healing, use at your discretion. -Make sure to always wipe from front to back after urinating. -If you are sexually active make sure to urinate Before AND After sex to help prevent bladder infections. -Avoid intercourse until your symptoms are resolved for one week. -Do not drink alcohol, caffeine, and citrus juices. These can irritate your bladder and increase your symptoms. Seek care (go to Urgent Care or ER) immediately if: ?? You are urinating very little or not at all. ?? You are vomiting. ?? You have a high fever with shaking chills. ?? You have side or back pain that gets worse. Contact your primary care doctor or TUBING MACHINE TENDER if: ?? You have a fever. ?? You have white or yellow discharge from your vagina. ?? You do not feel better after 2 days of taking antibiotics. ?? You have questions or concerns about your condition or care. Orders Placed This Encounter ??? URINALYSIS AUTO - POINT OF CARE (AMB) [facility] ??? sulfamethoxazole-trimethoprim (BACTRIM DS) 800-160 MG tablet Sig: Take 1 tablet by mouth 2 times daily for 7 days Dispense: 14 tablet Refill: 0 Recent Results (from the past 24 hour(s)) URINALYSIS AUTO - POINT OF CARE (AMB) [facility] Collection Time: 10/01/17 12:00 AM Result Value Ref Range Clarity UA cloudy Color UA yellow Leukocyte UA 125 Negative Nitrite UA + Negative Urobilinogen UA 0.2 0.1 - 1.0 Protein UA neg Negative pH UA 5.0 5.0 - 8.0 pH units Blood UA +++ Negative Specific [place] UA 1.025 1.002 - 1.030 Ketone UA neg Negative Bili UA neg Negative Glucose UA neg Negative Expiration Date 81211003 Lot Number [id number] QC VERIFIED Yes Yes ULTING SME documented in this encounter Plan of Treatment Not on file documented as of this encounter Procedures Procedure Name Priority Date/Time Associated Diagnosis Comments URINALYSIS AUTO - POINT OF CARE (AMB) [facility] Routine 10/01/2017 Urinary tract infection without hematuria, site unspecified documented in this encounter Results * URINALYSIS AUTO - POINT OF CARE (AMB) [facility] (10/01/2017) Clarity UA POCT cloudy Color UA POCT yellow Leukocyte UA 125 Negative Nitrite UA POCT + Negative Urobilinogen UA 0.2 0.1 - 1.0 Protein UA POCT neg Negative pH UA 5.0 5.0 - 8.0 pH units Blood UA +++ Negative Specific [place] UA POCT 1.025 1.002 - 1.030 Ketone UA neg Negative Bilirubin UA POCT neg Negative Glucose UA neg Negative Expiration Date [id number] Lot # [id number] QC Verified Yes Yes Urine URINE / Unknown 10/01/2017 [facility] - POINT OF CARE ORDERABLES documented in this encounter Visit Diagnoses Diagnosis Urinary tract infection without hematuria, site unspecified- Primary documented in this encounter Care Teams Berry Grower Relationship Specialty Start Date End Date Malena Munoz MD PCP - General Family Medicine 01/12/16 04/03/19 documented as of this encounter
--- OUTSIDE RECORDS SUMMARY | 2024-10-07 02:46 | XMS_ITS | Encounter Summary ---
Author Organization [facility] Health Address [address] [facility] [place] [address] Care Team Providers Care Aquatics Director Name Role Phone Malena Munoz MD Primary Care Provider [phone] Encounter Details Date Type Department Care Team (Latest Contact Info) Description 12/22/2016 8:50 AM CDT - 12/22/2016 11:59 PM CDT Hospital Encounter [facility] [address] [place] [address] Latonia Looney, YARD SUPERVISOR COTTON GIN-CABLE TOWER OPERATOR [address] [place] [address] Discharge Disposition: Home or Self Care Social [...] Sign Reading Time Taken Comments Blood Pressure 142/94 12/22/2016 8:53 AM CDT Pulse 72 12/22/2016 8:53 AM CDT Temperature 36.5 ??C (97.7 ??F) 12/22/2016 8:53 AM CD T Respiratory Rate 16 12/22/2016 8:53 AM CDT Oxygen Saturation 100% 12/22/2016 8:53 AM CDT Inhaled Oxygen Concentration - - Weight 122.5 kg (270 lb) 12/22/2016 8:53 AM CDT Height 165.1 cm (5' 5 ) 12/22/2016 8:53 AM CDT Body Mass Index 44.93 12/22/2016 8:53 AM CDT documented in this encounter Discharge Instructions * Patient Instructions* Latonia Looney APRN-CABLE TOWER OPERATOR - 12/22/2016 9:06 AM CDT Otitis Media The treatment for ear infections may include any of the following: You have been diagnosed with an ear infection (otitis media). Antibiotics have been sent to your pharmacy to help treat this infection. Please take the antibiotics until they are gone. Pain relievers like acetaminophen or ibuprofen will help control pain and fever. A warm (not hot) heating pad held over the ear can also help relieve pain from the earache. Follow up with Malena Munoz MD in 2 weeks or sooner if symptoms worsen or are not improving asplanned. WHAT YOU NEED TO KNOW: Otitis media is an ear infection. DISCHARGE INSTRUCTIONS: Medicines: ?? Ibuprofen or acetaminophen helps decrease your pain and fever. They are available without a doctor's order. Ask your healthcare provider which medicine is right for you. Ask how much to take and how often to take it. These medicines can cause stomach bleeding if not taken correctly. Ibuprofen can cause kidney damage. Do not take ibuprofen if you have kidney disease, an ulcer, or allergies to aspirin. Acetaminophen can cause liver damage. Do not drink alcohol if you take acetaminophen. ?? Ear drops help treat your ear pain. ?? Antibiotics help treat a bacterial infection that caused your ear infection. ?? Take your medicine as directed. Contact your healthcare provider if you think your medicine is not helping or if you have side effects. Tell him or her if you are allergic to any medicine. Keep a list of the medicines, vitamins, and herbs you take. Include the amounts, and when and why you take them. Bring the list or the pill bottles to follow-up visits. Carry your medicine list with you in case of an emergency. Heat or ice: ?? Heat may be used to decrease your pain. Place a warm, moist washcloth on your ear. Apply for 15 to 20 minutes, 3 to 4 times a day ?? Ice helps decrease swelling and pain. Use an ice pack or put crushed ice in a plastic bag. Coverthe ice pack with a towel and place it on your ear for 15 to 20 minutes, 3 to 4 times a day for 2 days. Prevent otitis media: ?? Wash your hands often. Use soap and water. Wash your hands after you use the bathroom, change a child's diapers, or sneeze. Wash your hands before you prepare or eat food. ?? Stay away from people who are ill. Some germs are easily and quickly spread through contact. Return to work or school: You may return to work or school when your fever is gone. Follow up with your healthcare provider as directed: Write down your questions so you remember to ask them during your visits. Contact your healthcare provider if: ?? Your ear pain gets worse or does not go away, even after treatment. ?? The outside of your ear is red or swollen. ?? You have vomiting or diarrhea. ?? You have fluid coming from your ear. ?? You have questions or concerns about your condition or care. Return to the emergency department if: ?? You have a seizure. ?? You have a fever and a stiff neck. ?? 2016 [employer]. Information is for End User's use only and may not be sold, redistributed or otherwise used for commercial purposes. All illustrations and images included in CareNotes?? are the copyrighted property of [employer] or [employer]. The above information is an educational audiologist only. It is not intended as medical advice for individual conditions or treatments. Talk to your doctor, nurse or pharmacist before following any medical regimen to see if it is safe and effective for you. documented in this encounter Medications at Time of Discharge Medication Sig Dispensed Refills Start Date End Date azithromycin (ZITHROMAX) 250 MG tabletIndications:Acute Otitis Media Take 2 tablets now, then 1 tablet daily for 4 days. Reasons: Acute Infection of the Middle Ear 6 Tab 12/22/2016 03/22/2017 diphenhydrAMINE (BENADRYL) 25 MG capsule Take 25 mg by mouth every 6 hours as needed for Itching Reported on 12/22/2016 11/17/2022 Melatonin 3 MG Take 3 mg by mouth once daily Reported on 12/22/2016 03/22/2017 meloxicam (MOBIC) 15 MG tabletIndications:Low back pain radiating to left lower extremity TAKE 1/2 TO 1 TABLET BY MOUTH EVERY DAY NEEDED FOR PAIN 30 Tab 11/30/2016 12/31/2016 methylPREDNISolone (MEDROL DOSEPAK) 4 MG tabletIndications:Acute left lumbar radiculopathy Take by mouth as directed 21 Each 10/31/2016 03/22/2017 metoprolol succinate XL 24hr (TOPROL XL) 50 MG tablet Take 50 mg by mouth once daily 5 12/24/2015 03/08/2017 MONONESSA 0.25-35 MG-MCG tabletIndications:Irregul ar periods/menstrual cycles TAKE 1 TABLET BY MOUTH EVERY DAY 28 Tab 12/19/2016 01/06/2017 sulfamethoxazole-trimetho prim (BACTRIM DS; SEPTRA DS) 800-160 [...] 08/02/2016 05/12/2017 documented as of this encounter Progress Notes * Latonia Looney, YARD SUPERVISOR COTTON GIN-CABLE TOWER OPERATOR - 12/22/2016 8:55 AM CDT Provider contact with the patient: 12/22/2016 08:55 Leti Soto [id number] Malena Munoz MD [facility] History Left ear pain, cough, sore throat HPI Comments: Leti, herrera 26 y.o., White/, Single female has presented to the Urgent Care today with Left ear pain that started suddenly last night and woke up out of sleep. Cough that somewhat productive (light yellow to green) and denies sore throat. No fever. Patient denies fever, chills, n/v/d; denies severe headache or neck stiffness. Patient denies recent travel outside of [facility] in past 21 days. Allergies Allergen Reactions ??? Penicillins Rash Past Medical History Diagnosis Date ??? NEGATIVE PAST MEDICAL HISTORY - SEE PROBLEM LIST Past Surgical History Procedure Laterality Date ??? Cholecystectomy, laparoscopic 2008 ??? [place] tooth extraction ??? Lasik surgery Family History Problem Relation Age of Onset ??? Depression Mother ??? Anxiety Disorder Mother ??? Hypertension Father ??? Diabetes Father ??? Depression Maternal Grandmother ??? Anxiety Disorder Maternal Grandmother agoraphobia ??? Diabetes Maternal Grandfather ??? Cancer Breast Paternal Grandmother ??? Heart Disease Father no [place] ??? Heart Disease Maternal Grandfather ??? Cancer Breast 2 maternal great aunts History Social History ??? Marital status: Single Spouse name: N/A ??? Number of children: 0 ??? 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 Smoking status: Never Smoker ??? Smokeless tobacco: Never Used ??? Alcohol use: 0.0 oz/week 0 Standard drinks or equivalent per week Comment: occasional mixed drink ??? Drug use: No ??? Sexual activity: Not Currently Partners: Male Other Topics Concern ??? Not on file Social History Narrative Born and raised in [place], [place] Lives at home with parents and a friend Exercise: 3 times a week Diet: 1600 calorie diet, 90 oz water daily Caffeine: maybe 1 cup coffee a day, 1-2 Diet soda a day; usually only when she's working Spirituality: Non-jain Zoroastrianism Allergies Allergen Reactions ??? Penicillins Rash Review of Systems Review of Systems Constitutional: Negative. Negative for fever. HENT: Positive for congestion, ear pain and hearing loss (tunnel hearing). Negative for ear discharge and sore throat. Respiratory: Positive for cough and sputum production. Negative for shortness of breath and wheezing. Cardiovascular: Negative. Gastrointestinal: Negative. Genitourinary: Negative. Musculoskeletal: Negative. Skin: Negative. Neurological: Negative for dizziness. Physical Exam BP 142/94 (BP SITE: LEFT ARM, BP POSITION: SITTING, BP CUFF SIZE: Large Adult) Pulse 72 Temp 97.7 ??F (Oral) Resp 16 Ht 1.651 m (5' 5 ) Wt 122.5 kg (270 lb) SpO2 100% BMI 44.93 kg/m2 Physical Exam Constitutional: She is cooperative. HENT: Right Ear: Hearing, tympanic membrane, external ear and ear canal normal. Left Ear: Hearing, external ear and ear canal normal. No drainage. Tympanic membrane is erythematous and bulging. Nose: Nose normal. Right sinus exhibits no maxillary sinus tenderness and no frontal sinus tenderness. Left sinus exhibits no maxillary sinus tenderness and no frontal sinus tenderness. Mouth/Throat: Uvula is midline, oropharynx is clear and moist and mucous membranes are normal. Cardiovascular: Normal rate, regular rhythm, S1 normal, S2 normal and normal heart sounds. Pulmonary/Chest: Effort normal and breath sounds normal. Lymphadenopathy: She has no cervical adenopathy. Neurological: She is alert. Skin: Skin is warm, dry and intact. Nursing note and vitals reviewed. Medications Current Outpatient Prescriptions Medication Sig Dispense Refill ??? azithromycin (ZITHROMAX) 250 MG tablet Take 2 tablets now, then 1 tablet daily for 4 days. Reasons: Acute Infection of the Middle Ear 6 Tab 0 ??? MONONESSA 0.25-35 MG-MCG tablet TAKE 1 TABLET BY MOUTH EVERY DAY 28 Tab 0 ??? metoprolol succinate XL 24hr (TOPROL XL) 50 MG tablet Take 50 mg by mouth once daily 5 ??? meloxicam (MOBIC) 15 MG tablet TAKE 1/2 TO 1 TABLET BY MOUTH EVERY DAY NEEDED FOR PAIN (Patient not taking: Reported on 12/22/2016) 30 Tab 0 ??? methylPREDNISolone (MEDROL DOSEPAK) 4 MG tablet Take by mouth as directed (Patient not taking: Reported on 12/22/2016) 21 Each 0 ??? traMADol (ULTRAM) 50 MG tablet Take 1 Tab by mouth every 6 hours as needed for Pain (Patient not taking: Reported on 12/22/2016) 20 Tab 0 ??? diphenhydrAMINE (BENADRYL) 25 MG capsule Take 25 mg by mouth every 6 hours as needed for Itching Reported on 12/22/2016 ??? triamcinolone acetonide (KENALOG) 0.1 % cream Apply to affected area 2 times daily (Patient nottaking: Reported on 10/31/2016) 15 g 1 ??? sulfamethoxazole-trimethoprim (BACTRIM DS; SEPTRA DS) 800-160 MG tablet Take 1 Tab by mouth every 12 hours (Patient not taking: Reported on 10/31/2016) 14 Tab 0 ??? Melatonin 3 MG Take 3 mg by mouth once daily Reported on 12/22/2016 Procedures Procedures ECG Interpretation ECG Interpretation Lab/SPO2 Interpretation No results found for this visit on 12/22/16. No orders to display Progress Notes UC Course Discussed with patient: The treatment for ear infections may include any of the following: You have been diagnosed with an ear infection (otitis media). Antibiotics have been sent to your pharmacy to help treat this infection. Please take the antibiotics until they are gone. Pain relievers like acetaminophen or ibuprofen will help control pain and fever. A warm (not hot) heating pad held over the ear can also help relieve pain from the earache. Follow up with Malena Munoz MD in 2 weeks or sooner if symptoms worsen or are not improving asplanned. - Monitor symptoms closely for improvement or any changes/problems. - Patient to follow up with primary care provider/ER in 4-6 days if symptoms persist and not improving and sooner with PCP/ER if becoming worse or symptoms change/new symptoms arise as discussed. - Take medications as directed. Proper medication use, risks, side effects/adverse effects and potential interactions reviewed and patient states understands. - Patient to stay well hydrated, otc tylenol or ibuprofen for pain or fever as discussed. ED Course There is no data filed. Medical Decision Making I have reviewed the: Nursing Notes, Vitals. I have interpreted the following results: Oxygen Saturation. Orders Placed This Encounter ??? azithromycin (ZITHROMAX) 250 MG tablet Problem List Items Addressed This Visit None Visit Diagnoses Otitis media, non-suppurative, acute, left - Primary Clinical Impression Final diagnoses: Otitis media, non-suppurative, acute, left (Primary) -AVS reviewed with patient/parent - Patient encouraged to call back with concerns or questions. ?? - Follow up with your pcp in 1-2 weeks or sooner if symptoms worsen or are not improving as planned. - Patient/parent states understanding and agrees with plan of care at this time and stating no further questions. - Patient discharged to home in stable condition; ambulated out without difficulty. documented in this encounter Miscellaneous Notes * Addendum Note - Radha Ames CPC - 12/22/2016 11:59 PM CDTEncounter addended by: Radha Ames CPC on: 12/23/2016 5:14 PM
Actions taken: Charge Capture section accepted documented in this encounter Plan of Treatment Not on file documented as of this encounter Visit Diagnoses Diagnosis Otitis media, non-suppurative, acute, left- Primary documented in this encounter Care Teams Aquatics Director Relationship Specialty Start Date End Date Malena Munoz MD PCP - General Family Medicine 01/12/16 04/03/19 documented as of this encounter
--- OUTSIDE RECORDS SUMMARY | 2024-10-07 02:46 | XMS_ITS | Encounter Summary ---
Author Organization [facility] Address [address] [place] [address] Care Team Providers Care Data Administrator Name Role Phone Malena Munoz MD Primary Care Provider [phone] Reason for Referral * Procedure (Routine) - Closed Specialty Diagnoses / Procedures Referred By Janesac t Referred To Contact Cardiology Diagnoses Mitral valve prolapse Procedures [place] 12-[place] [address] [place] [address] [address] [place] [address] Referral ID Status Reason Start Date Expiration Date Visits Re quested Visits Authorized [id number] Closed 01/25/2019 07/24/2019 1 1 * Cardiac (Routine) - Closed Specialty Diagnoses / Procedures Referred By Deshawn chávez Referred To Contact Cardiology Diagnoses Mitral valve prolapse Procedures ECHOCARDIOGRAM 2D WITH DOPPLER Ayanna Luna DO [address] [place] [address] [address] [place] [address] Referral ID Status Reason Start Date Expiration Date Visits Re quested Visits Authorized [id number] Closed 01/21/2019 07/20/2019 1 1 Reason for Visit * Reason Comments Mitral Valve Disease Encounter Details Date Type Department Care Team (Late st Contact Info) Description 01/21/2019 8:30 AM CDT Office Visit [facility] [address] [place] [address] [address] [place] [address] Ayanna Luna, [address] [place] [address] Mitral valve prolapse (Primary Dx) Social History Tobacco Use Types [...] Sign Reading Time Taken Comments Blood Pressure 124/70 01/21/2019 8:34 AM CDT Pulse 73 01/21/2019 8:34 AM CDT Temperature - - Respiratory Rate - - Oxygen Saturation - - Inhaled Oxygen Concentration - - Weight 136.3 kg (300 lb 6.4 oz) 01/21/2019 8:34 AM CDT Height - - Body Mass Index 48.49 11/26/2018 5:39 PM FULFILLMENT ASSOCIATE documented in this encounter Functional Status Functional [...] No 11/26/2018 documented as of this encounter Progress Notes * Ayanna Luna DO - 01/21/2019 8:50 AM CDT Leti Soto : 1990 Age: [age] year old [facility] - Cardiology Consult Date of Consult: 01/21/2019 Patient's Primary Care Physician: Malena Munoz MD Physician Requesting Consult: Malena Munoz MD Indication for Consultation: Chief Complaint Patient presents with ??? Mitral Valve Disease History of Present Illness: Leti Soto is a 28 year old female with a history of palpitations anxiety. 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 She was placed on beta-jostin at that time. Overall her anxiety has improved. She is not 24 weeks gestation with her 1st . Early in , she decided to stop her beta-jostin and has not had any significant symptoms since then. She has had possibly 1 episode of palpitations while at work during a very stressful situation but no other episodes. She has no edema. She is obese but has lost about 200 lb over the past 2-3 years. At one time she weighed close to 500 lb. She is here today to make sure it is okay for her to be offbeta-jostin as well as make sure there is no other treatment recommended during . Allergies Allergen Reactions ??? Tramadol Other Shaky, increased heart rate, sweating. ??? Penicillins Rash Medications: Outpatient Prescriptions Marked as Taking for the 01/21/19 encounter (Office Visit) with Ayanna Luna, DO Medication Sig ??? docusate sodium (COLACE) 100 MG capsule Take 1 capsule by mouth 2 times daily ??? Vit-Fe Fumarate-FA ( VITAMIN) 28-0.8 MG tablet Take 1 tablet by mouth once daily Past Medical History: Past Medical History: Diagnosis Date ??? NEGATIVE PAST MEDICAL HISTORY - SEE PROBLEM LIST Past Surgical History: Procedure Laterality Date ??? Cholecystectomy, Laparoscopic 2008 ??? LASIK SURGERY Bilateral 11/2016 ??? [place] Tooth Extraction Patient Active Problem List: Mitral valve prolapse Irregular periods/menstrual cycles Situational anxiety Psychophysiological insomnia Morbid obesity due to excess calories BMI 40.0-44.9, adult Nausea/vomiting in Family History: Family History Problem Relation Age of Onset ??? Depression Mother ??? Anxiety Disorder Mother ??? Hypertension Father ??? Diabetes Father ??? Heart Disease Father no [place] ??? Depression Maternal Grandmother ??? Anxiety Disorder Maternal Grandmother agoraphobia ??? Diabetes Maternal Grandfather ??? Heart Disease Maternal Grandfather ??? Cancer - Breast Paternal Grandmother ??? Cancer - Breast Other 2 maternal great aunts Social History: Social History Social History ??? Marital status: Single Spouse name: N/A ??? Number of children: 0 ??? 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 Smoking status: Never Smoker ??? Smokeless tobacco: Never Used ??? Alcohol use No ??? Drug use: No ??? Sexual activity: Yes Partners: Male Other Topics Concern ??? Not on file Social History Narrative Born and raised in [place], [place] Moved in with boyfriend of 1 year in 05/2017 Exercise: 3 times a week Diet: 1600 calorie diet, 90 oz water daily Caffeine: maybe 2 cups coffee a day, 1-2 Diet soda occasionally; usually only when she's working Spirituality: Non-caodaism Evangelical Review of Systems: No TIA, CVA or seizures. No dizziness or syncope or falls. No recent change in vision or hearing. No fever, chills, or arthralgias. No cough. No diarrhea or constipation. No GI bleed, ulcers or reflux. No abdominal pain. No thyroid disease. As above, all others systems negative. Physical exam: Vitals: 01/21/19 0834 BP: 124/70 Pulse: 73 Weight: (!) 136.3 kg (300 lb 6.4 oz) Constitutional: Pleasant, well appearing in no distress. Skin: Warm, dry. No rashes in visible areas Eye: Conjunctiva clear. Pupil equal round and reactive ENMT: Lips without lesion. Good dentition. Oropharynx clear Neck: Trachea midline. No masses. JVP<8cm, no bruits, no thyromegaly Respiratory: Lungs clear b/l with no rales or wheezing. Unlabored. Cardiovascular: RRR, s1s2nl, no murmurs. No edema. Abdomen: Soft abd, non-tender, normal bowel sounds, no masses. No HSM. Psych: Alert, oriented to person, place, time. Normal affect Data: Recent Labs Component Name 03/22/17 1345 WBC 8.1 HGB 13.5 HCT 40.9 PLTCOUNT 264 Recent Labs Component Name 03/22/17 1345 SODIUM 142 POTASSIUM 4.5 BUN 14 CREATININE 0.78 GLUCOSE 87 No results for input(s): BNP in the last 95573 hours. No results for input(s): TROPONIN in the last 24180 hours. No results for input(s): MAGMGDL in the last 16873 hours. Recent Labs Component Name 03/22/17 1345 LDLCALC 84 HDL 96 TRIG 67 Recent Labs Component Name 03/22/17 1345 TSH 1.990 Recent Labs Component Name 03/22/17 1345 INR 1.0 The ASCVD Risk score (Perry ETTA Jr, et al., 2013) failed to calculate for the following reasons: The 2013 ASCVD risk score is only valid for ages 40 to 79 Impression: ICD-10-CM 1. Mitral valve prolapse I34.1 ECHOCARDIOGRAM 2D WITH DOPPLER Plan: 1. Her exam is unremarkable. No clicks. No murmurs. Possible the MVP was overcalled. -ok to stay off BB -repeat echo. Will review to see if any further treatment is needed. -unlikely to need FU Return if symptoms worsen or fail to improve. Thank you for allowing me to participate in the care of your patient. Do not hesitate to call with question or concerns. Be advised that voice recognition software has been used on this chart and inadvertent errors may occur. These may not represent a true interpretation of the dictation given. Ayanna Luna DO [facility] documented in this encounter Miscellaneous Notes * Addendum Note - Coby Yuan - 01/25/2019 12:31 PM CDTAddended by: JENNIFER YUAN on: 01/25/2019 12:31 PM Modules accepted: Orders documented in this encounter Plan of Treatment Not on file documented as of this encounter Procedures Procedure Name Priority Date/Time Associated Diagnosis Comments EKG 12-LEAD Routine 01/21/2019 Mitral valve prolapse documented in this encounter Results * ECHOCARDIOGRAM 2D WITH DOPPLER (02/04/2019 8:47 AM CDT) 02/04/2019 8:47 AM CDT Narrative [facility] - 02/04/2019 5:49 PM CDT [facility] [place] [address] [facility] [address] [place] [address] Transthoracic Echocardiogram 2D, M-mode, Doppler, and Color Doppler Patient: LETI SOTO MR number: [id number] Height: 66 in Weight: 299.4 lb BSA: 2.38 m?? Study date: 04-Feb-2019 : 1990 Age: 28 years Gender: Female Race: Allergies: TRAMADOL, PENICILLINS Supervisor Assembly Room: ??SOTERO Deluna Referring Physician: ??Ayanna Luna DO [...] Procedure: The study was performed in the [facility]. The transthoracic approach was used. The study [...] Note Hunter Barbosa Jr., MD - 02/04/2019 [facility] at [address] [place] [address] Transthoracic Echocardiogram 2D, M-mode, Doppler, and Color Doppler Patient: LETI SOTO MR number: [id number] Height: 66 in Weight: 299.4 lb BSA: 2.38 m?? Study date: 04-Feb-2019 : 1990 Age: 28 years Gender: Female Race: Allergies: TRAMADOL, PENICILLINS Supervisor Assembly Room: SOTERO Deluna Referring Physician: Ayanna Luna DO [...] Procedure: The study was performed in the [facility]. The transthoracic approach was used. The study [...] 04-Feb-2019 17:48:58 Ayanna Luna DO ECHO ORDERABLES [facility] [address] [id number] * EKG 12-LEAD (01/21/2019) Impressions NikoFarrukh topetey - 01/21/2019 Sinus rhythm Normal ECG Interpreted by Dr. Luna Ayanna Luna DO ECG ORDERABLES documented in this encounter Visit Diagnoses Diagnosis Mitral valve prolapse- Primary Mitral valve disorders Mitral valve prolapse Mitral valve disorders documented in this encounter Care Teams Data Administrator Relationship Specialty Start Date End Date Malena Munoz MD PCP - General Family Medicine 01/12/16 04/03/19 documented as of this encounter
--- OUTSIDE RECORDS SUMMARY | 2024-10-07 02:46 | XMS_ITS | Encounter Summary ---
Author Organization [facility], formerly [facility] Address [address] [place] [address] Care Team Providers Care Special [employer] Specialist Name Role Phone Malena Munoz MD Primary Care Provider [phone] Reason for Visit * Reason Comments Refill Request Encounter Details Date Type Department Care Team (Late st Contact Info) Description 12/18/2016 Refill [facility] - Family Medicine [address] [place] [address] [place] [id number] [place] [phone] Refill Request Social History Tobacco Use Types [...] Notes * Telephone Encounter - Nida Negrete - 12/19/2016 3:49 PM CDT Left message informing patient. * Telephone Encounter - Malena Munoz MD - 12/19/2016 1:06 PM CDT Thank you. I agree with only one refill for now and have sent it. Please inform patient she is due for a follow up on her irregular periods before we can give her refills for one year again. Thank you. * Telephone Encounter - Nida Negrete - 12/19/2016 11:35 AM CDT Requested Prescriptions Pending Prescriptions Disp Refills ??? MONONESSA 0.25-35 MG-MCG tablet [Pharmacy Med Name: MONONESSA TABLETS 28S] 28 Tab 0 Sig: TAKE 1 TABLET BY MOUTH EVERY DAY Last appt: 10/31/16 Next appt: None Number of cancel or no shows in the last 12 months: 1 Allergies have been reviewed. Correct pharmacy is populated. Please sign RX and close encounter. documented in this encounter Plan of Treatment Not on file documented as of this encounter Visit Diagnoses Diagnosis Irregular periods/menstrual cycles- Primary Irregular menstrual cycle documented in this encounter Care Teams Special [employer] Specialist Relationship Specialty Start Date End Date Malena Munoz MD PCP - General Family Medicine 01/12/16 04/03/19 documented as of this encounter
--- OUTSIDE RECORDS SUMMARY | 2024-10-07 02:46 | XMS_ITS | Encounter Summary ---
Author Organization [facility] Address [address] [place] [address] Care Team Providers Care Metal Sprayer Protective Coating Name Role Phone Malena Munoz MD Primary Care Provider [phone] Reason for Visit * Reason Comments Physical Encounter Details Date Type Department Care Team (Late st Contact Info) Description 03/22/2017 11:00 AM CDT Office Visit [facility] - Family Medicine [address] [place] [id number] [place] [id number] [facility] [address] [place] [address] Physical exam, routine (Primary Dx); BMI 45.0-49.9, adult (HCC); Easy bruising; Screening for lipid disorders; Screening for diabetes mellitus; Mitral valve prolapse; Irregular periods/menstrual cycles Social History Tobacco Use Types Packs/Day Years [...] Sign Reading Time Taken Comments Blood Pressure 125/70 03/22/2017 10:33 AM CDT Pulse 70 03/22/2017 10:33 AM CDT Temperature 36.7 ??C (98.1 ??F) 03/22/2017 10:33 AM C DT Respiratory Rate 18 03/22/2017 10:33 AM CDT Oxygen Saturation 100% 03/22/2017 10:33 AM CDT Inhaled Oxygen Concentration - - Weight 129.3 kg (285 lb) 03/22/2017 10:33 AM CDT Height 166.4 cm (5' 5.5 ) 03/22/2017 10:33 AM CD T Body Mass Index 46.71 03/22/2017 10:33 AM CDT documented in this encounter Patient Instructions * Patient Instructions* Malena Munoz MD - 03/22/2017 11:13 AM CDT Try to get at least 6 hours of sleep at night Continue to eat healthy and get regular exercise Eat breakfast daily We can discuss potentially starting phentermine or phentermine/topiramate at the next visit, if you're interested in taking a medication to help with weight loss. If we were to start this, I'll get an EKG at the next visit. documented in this encounter Progress Notes * Malena Munoz MD - 03/23/2017 5:33 PM CDT Normal * Malena Munoz MD - 03/22/2017 11:04 AM CDT History & Physical HPI: Leti Soto is a 26 y.o. White/ female here today for routine physical examand requests lab work. Accompanied by: self Had LASIK 11/2016 and doing well Easy bruising None today Has large bruises more frequently and would like lab work Leg cramps increased Usually around work and when she works out Drinking plenty of water and Powerade Zero Obesity Finished with personal lines insurance agent for 4 months Introducing weights more Now wears size 18 (down from 30-33) Has overall lost 200 lb since started to eat healthier and exercise 3 years ago (480lb in 02/2014) Exercises 3/wk; 1 min interval trainings Weight not changing with diet and exercise In a relationship but still eating well, so proud of herself Minimal grains, vegetables and protein, protein shakes Was down to 270lb in 11/2016; went on a cruise for a week a month ago Home scale persistently to be at 275 lb recently and starting to be a little frustrated Did TOPS with mom when she was younger, but only working on her own the past 3 years; part of weight loss group on Facebook for accountability and support Would like to be at healthier weight, closer to 200 lb before starting family Insomnia varies Doesn't have good sleep pattern At least gets 5 hours at night Situational anxiety Doing very well at work and going well, so anxiety is much better 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 Irregular periods Previously irregular but now regulated with OCP Cramping every other month but otherwise doing well with Mononessa Taking OCP daily LMP 03/12/2017 Back pain resolved with physical therapy Had sweating and increased heart rate with Tramadol Mitral Valve Prolapse Denies palpitations while on metoprolol Unequal calf girth Denies pain or swelling in calves, just always asymmetric Review of Systems: Constitutional: Denies fatigue, fevers; steady weight recently Psych: Improved mood. Denies anxiety or depression. Head: Denies headaches Eyes: Denies vision changes ENT: Denies nasal congestion/drainage, sinus pain or sore throat. Cardiovascular: Denies chest pain, palpitations Respiratory: Denies cough, shortness of breath Gastrointestinal: Denies abdominal pain, nausea, vomiting, change in bowel habits, black or bloody stools Genito-Urinary: Denies dysuria or hematuria; denies pain with sex; denies vaginal discharge Musculoskeletal: Denies joint or muscle pain Neurological: Denies dizziness, numbness/tingling or weakness Skin: Denies skin lesions or rashes; Easy bruising Past Medical History: Diagnosis Date ??? NEGATIVE PAST MEDICAL HISTORY - SEE PROBLEM LIST Past Surgical History: Procedure Laterality Date ??? Cholecystectomy, Laparoscopic 2008 ??? LASIK SURGERY Bilateral 11/2016 ??? Alpine Tooth Extraction Current Outpatient Prescriptions Medication ??? metoprolol succinate XL 24hr (TOPROL XL) 50 MG tablet ??? norgestimate-ethinyl estradiol (MONONESSA) 0.25-35 MG-MCG tablet ??? diphenhydrAMINE (BENADRYL) 25 MG capsule ??? triamcinolone acetonide (KENALOG) 0.1 % cream No current facility-administered medications for this visit. [...] 16 Occupational History ??? 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 Smoking status: Never Smoker ??? Smokeless tobacco: Never Used ??? Alcohol use 0.0 oz/week 0 Standard drinks or equivalent per week Comment: occasional mixed drink ??? Drug use: No ??? Sexual activity: Yes Partners: Male Other Topics Concern ??? Not on file Social History Narrative Born and raised in [place], [place] Lives at home with parents and a friend Exercise: 3 times a week Diet: 1600 calorie diet, 90 oz water daily Caffeine: maybe 1 cup coffee a day, 1-2 Diet soda a day; usually only when she's working Spirituality: Non-judaism Hindu Exam: BP 125/70 Pulse 70 Temp 98.1 ??F (Oral) Resp 18 Ht 1.664 m (5' 5.5 ) Wt 129.3 kg (285 lb) SpO2 100%BMI 46.71 kg/m2 Wt Readings from Last 3 Encounters: 03/22/17 129.3 kg (285 lb) 12/22/16 122.5 kg (270 lb) 10/31/16 132.9 kg (293 lb) GENERAL: Well groomed, well nourished, good hygiene, obese, no acute distress PSYCH: Alert & oriented, normal mood, affect, insight EYE: Conjunctiva normal bilaterally, pupils equal and reactive to light bilaterally, lids and orbits normal appearing ENT: Auditory canals without lesions bilaterally, TMs visualized to be pearly fine and without erythema or fluid. Patent nares with mildly hypertrophied turbinates. Good dentition. Posterior pharynx unremarkable. LYMPH: [...] and symmetric strength in upper and lower extremities. BACK: No vertebral or costovertebral angle tenderness NEURO: CN II-XII grossly intact. Patellar reflexes 2+ bilaterally. SKIN: warm and dry, no rashes or concerning moles. Some loose skin under arms and back. Right calf 59 cm (down from 62cm on 01/12/2016) Left calf 53 cm (down from 55 cm on 01/11/2017) Assessment & Plan: (Z00.00) Physical exam, routine (primary encounter diagnosis) Plan: Overall doing well. Will get routine blood work and evaluate for bruising and cramping. CBC WAUTO DIFFERENTIAL, COMPREHENSIVE METABOLIC PANEL, LIPID PROFILE REFLEX LDL DIRECT, THYROID CASCADE PROFILE, HEMOGLOBIN A1C (Z68.42) BMI 45.0-49.9, adult Plan: Congratulated patient on weight loss a for the past 3 years. Discussed potentially starting phentermine to help, since she is reaching a plateau and is motivated, as well as continuing to have good lifestyle choices. Patient would like to research a little bit more about phentermine and phentermine/topiramate. Advised for patient to sleep for at least 6 hours a day, eat breakfast every day,and we will follow up on weight loss and may start medication. Will need EKG if she desires to start phentermine. LIPID PROFILE REFLEX LDL DIRECT, HEMOGLOBIN A1C (R23.8) Easy bruising Plan: No bruising noted today on exam. Will check INR and platelets. Refer to hematology if bruising persists. CBC W AUTO DIFFERENTIAL, THYROID CASCADE PROFILE, PT-INR (Z13.220) Screening for lipid disorders Plan: LIPID PROFILE REFLEX LDL DIRECT (Z13.1) Screening for diabetes mellitus Plan: HEMOGLOBIN A1C (I34.1) Mitral valve prolapse Plan: Stable. Doing well on metoprolol. metoprolol succinate XL 24hr (TOPROL XL) 50 MG tablet (N92.6) Irregular periods/menstrual cycles Plan: Refill x 1 year given to patient. Discussed to use second form of control if she takes antibiotics. Discussed I do not prescribe Plan B. norgestimate-ethinyl estradiol (MONONESSA) 0.25-35MG-MCG tablet Return in about 1 month (around 04/21/2017) for f/u weight. Malena Munoz MD 03/22/2017 11:46 AM Health Maintenance Due Topic Date Due ??? DYSLIPIDEMIA SCREENING Q5 YR 2010 * Nida Negrete - 03/22/2017 10:38 AM CDT Leti Soto here for physical. Would like to have labs drawn due to increased bruising and leg cramps. documented in this encounter Plan of Treatment Not on file documented as of this encounter Procedures Procedure Name Priority Date/Time Associated Diagnosis Comments LIPID PROFILE REFLEX LDL DIRECT Routine 03/22/2017 1:45 PM CDT Physical exam, routine BMI 45.0-49.9, adult (HCC) Screening for lipid disorders THYROID CASCADE PROFILE Routine 03/22/2017 1:45 PM CDT Physical exam, routine Easy bruising HEMOGLOBIN A1C Routine 03/22/2017 1:45 PM CDT Physical exam, routine BMI 45.0-49.9, adult (HCC) Screening for diabetes mellitus PT-INR Routine 03/22/2017 1:45 PM CDT Easy bruising CBC W AUTO DIFFERENTIAL Routine 03/22/2017 1:45 PM CDT Physical exam, routine Easy bruising COMPREHENSIVE METABOLIC PANEL Routine 03/22/2017 1:45 PM CDT Physical exam, routine documented in this encounter Results * PT-INR (03/22/2017 1:45 PM CDT) INR 1.0 0.9 - 1.1 [facility] ACCOUNT BILL Comment: Conventional Warfarin Anticoagulant Therapy: INR Reference Range: ??2.0-3.0 Intensive Warfarin Anticoagulant Therapy: INR Reference Range: ? 2.5-3.5 PT 10.0 9.5 - 11.6 sec [facility] ACCOUNT BILL Blood BLOOD SPECIMEN / Unknown 03/22/2017 1:45 PM CDT 03/22/2017 Narrative Resulting Agency Comment [address] ??[facility] [phone] Malena Munoz MD LAB - COAGULATION OR DERABLES Performing Organization Address City/[facility] Co de Phone Number [facility] ACCOUNT BILL [address] [place] [address] * HEMOGLOBIN A1C (03/22/2017 1:45 PM CDT) [facility] Hemoglobin A1c 5.1 4.2 - 6.3 % [facility] ACCOUNT BILL Comment:AVERAGE GLUCOSE MG/D L BLOOD 100 mg/dL Whole Blood BLOOD SPECIMEN WITH EDTA / Unknown 03/22/2017 1:45 PM CDT 03/22/2017 Narrative Resulting Agency Comment [address] ??[facility] [phone] Malena Munoz MD LAB - CHEMISTRY ORDE RABLES Performing Organization Address City/[facility]/ZIP Co de Phone Number [facility] ACCOUNT BILL [address] [place] [address] * THYROID CASCADE PROFILE (03/22/2017 1:45 PM CDT) Pathologist [facility] TSH 1.990 0.450 - 4.500 uIU/mL [facility] ACCOUNT BILL BLOOD SPECIMEN / Unknown 03/22/2017 1:45 PM CDT 03/22/2017 Narrative Resulting Agency Comment [facility] [address] [facility] ??[facility] [phone] Malena Munoz MD LAB - CHEMISTRY ESPERANZA VELASCO [facility] ACCOUNT BILL [address] [place] [address] * LIPID PROFILE REFLEX LDL DIRECT (03/22/2017 [...] PM CDT 03/22/2017 Narrative Resulting Agency Comment [address] ??[facility] [phone] Malena Munoz MD LAB - CHEMISTRY ESPERANZA VELASCO [facility] ACCOUNT BILL [address] [place] [address] * COMPREHENSIVE METABOLIC PANEL (03/22/2017 1:45 PM CDT) Glucose 87 74 - 106 mg/dL [facility] ACCOUNT BILL BUN 14 7 - 21 mg/dL [facility] ACCOUNT BILL Creatinine 0.78 0.50 - 1.30 mg/dL [facility] ACCOUNT BILL eGFR by MDRD >60 >60 mL/min/1.7 3m2 [facility] ACCOUNT BILL eGFR by MDRD >60 >60 mL/min/1.7 3m2 [facility] ACCOUNT BILL Sodium 142 136 - 145 mmol/L [facility] ACCOUNT BILL Potassium 4.5 3.5 - 5.1 mmol/L [facility] ACCOUNT BILL Chloride 105 98 - 107 mmol/L [facility] ACCOUNT BILL CO2 28 22 - 31 mmol/L [facility] ACCOUNT BILL Calcium 8.9 8.5 - 10.1 mg/dL [facility] ACCOUNT BILL Protein Total 7.1 6.4 - 8.2 gm/dL [facility] ACCOUNT BILL Albumin 3.9 3.4 - 5.0 gm/dL [facility] ACCOUNT BILL Bilirubin Total 0.4 0.2 - 1.0 mg/dL [facility] ACCOUNT BILL Alkaline Phosphatase 62 38 - 126 U/L [facility] ACCOUNT BILL AST 15 5 - 40 U/L [facility] ACCOUNT BILL ALT 19 13 - 61 U/L [facility] ACCOUNT BILL Blood BLOOD SPECIMEN / Unknown 03/22/2017 1:45 PM CDT 03/22/2017 Narrative Resulting Agency Comment [address] ??[facility] [phone] Malena Munoz MD LAB - CHEMISTRY ESPERANZA VELASCO [facility] ACCOUNT BILL [address] [place] [address] * CBC W AUTO DIFFERENTIAL (03/22/2017 1:45 PM CDT) WBC 8.1 4.4 - 10.7 x10E9/L [facility] ACCOUNT BILL RBC 4.33 3.80 - 5.20 x10E12/L [facility] ACCOUNT BILL Hemoglobin 13.5 12.0 - 15.6 gm/dL [facility] ACCOUNT BILL Hematocrit 40.9 35.9 - 45.5 % [facility] ACCOUNT BILL MCV 94.5 80.7 - 98.3 fL [facility] ACCOUNT BILL MCH 31.2 26.7 - 34.0 pg [facility] ACCOUNT BILL MCHC 33.0 30.8 - 35.9 gm/dL [facility] ACCOUNT BILL RDW 12.9 12.1 - 14.9 % [facility] ACCOUNT BILL Platelet Count 264 153 - 416 x10E9/L [facility] ACCOUNT BILL Comment:MPV FL BLOOD ([facility]) 1 0.7 fl 9.4-12.9 Granulocytes % 57.0 44.0 - 73.0 % [facility] ACCOUNT BILL Lymphocytes % 35.4 20.0 - 43.0 % [facility] ACCOUNT BILL Monocytes % 5.8 5.0 - 13.0 % [facility] ACCOUNT BILL Eosinophils % 1.0 0.0 - 6.0 % [facility] ACCOUNT BILL Basophils % 0.6 0.0 - 2.0 % [facility] ACCOUNT BILL Granulocytes Absolute 4.62 2.01 - 7.14 x10E9/L [facility] ACCOUNT BILL Lymphocytes Absolute 2.87 1.07 - 3.94 x10E9/L [facility] ACCOUNT BILL Monocytes Absolute 0.47 0.26 - 1.07 x10E9/L [facility] ACCOUNT BILL Eosinophils Absolute 0.08 0 - 0.47 x10E9/L [facility] ACCOUNT BILL Basophils Absolute 0.05 0 - 0.08 x10E9/L [facility] ACCOUNT BILL Immature Granulocytes 0.2 0 - 1 % [facility] ACCOUNT BILL Immature Granulocytes Absolute 0.02 0.00 - 0.06 x10E9/L [facility] ACCOUNT BILL nRBC 0 /100 WBC [facility] ACCOUNT BILL Blood BLOOD SPECIMEN / Unknown 03/22/2017 1:45 PM CDT 03/22/2017 Narrative Resulting Agency Comment [address] ??[facility] [phone] Malena Munoz MD LAB - HEMATOLOGY ORD ERABLES [facility] ACCOUNT BILL [address] [place] [address] documented in this encounter Visit Diagnoses Diagnosis Physical exam, routine- Primary Routine general medical examination at a health care facility BMI 45.0-49.9, adult (HCC) Body Mass Index 45.0-49.9, adult Easy bruising Other symptoms involving skin and integumentary tissues Screening for lipid disorders Screening for diabetes mellitus Mitral valve prolapse Mitral valve disorders Irregular periods/menstrual cycles Irregular menstrual cycle documented in this encounter Care Teams Metal Sprayer Protective Coating Relationship Specialty Start Date End Date Malena Munoz MD PCP - General Family Medicine 01/12/16 04/03/19 documented as of this encounter
--- OUTSIDE RECORDS SUMMARY | 2024-10-07 02:46 | XMS_ITS | Encounter Summary ---
Author Organization [facility] Address [address] [facility] [place] [address] Care Team Providers Care Band Salvager Name Role Phone Malena Munoz MD Primary Care Provider [phone] Reason for Visit * Reason Comments Allergic reaction all over body Encounter Details Date Type Department Care Team (Late st Contact Info) Description 08/02/2016 10:00 AM C UNIX DEVELOPER Office Visit [facility] - Family Medicine [address] [place] [phone] Amalia Salcido, DO [address] [facility] [address] [place] [address] Rash and other nonspecific skin eruption (Primary Dx); Bug bite, initial encounter; Need for HPV vaccination Social History Tobacco [...] Sign Reading Time Taken Comments Blood Pressure 127/84 08/02/2016 9:47 AM C UNIX DEVELOPER Pulse 74 08/02/2016 9:47 AM C UNIX DEVELOPER Temperature 36.8 ??C (98.2 ??F) 08/02/2016 9:47 AM CS T Respiratory Rate 18 08/02/2016 9:47 AM C UNIX DEVELOPER Oxygen Saturation 100% 08/02/2016 9:47 AM C UNIX DEVELOPER Inhaled Oxygen Concentration - - Weight 135.7 kg (299 lb 3.2 oz) 08/02/2016 9:47 AM C UNIX DEVELOPER Height - - Body Mass Index 49.01 02/19/2016 10:31 AM CDT documented in this encounter Patient Instructions * Patient Instructions* Amalia SalcidoDO - 08/02/2016 10:26 AM C UNIX DEVELOPER Insect Bite or Sting WHAT YOU NEED TO KNOW: Most insect bites and stings are not dangerous and go away without treatment. Your symptoms may be mild, or you may develop anaphylaxis. Anaphylaxis is a sudden, life-threatening reaction that needs immediate treatment. Common examples of insects that bite or sting are bees, ticks, mosquitoes, spiders, and ants. Insect bites or stings can lead to diseases such as malaria, West Nile virus, Lyme disease, or [place] Spotted Fever. DISCHARGE INSTRUCTIONS: Call 911 for signs or symptoms of anaphylaxis, such as trouble breathing, swelling in your mouth orthroat, or wheezing. You may also have itching, a rash, hives, or feel like you are going to faint. Seek care immediately if: ?? You are stung on your tongue or in your throat. ?? A white area forms around the bite. ?? You are sweating badly or have body pain. ?? You think you were bitten or stung by a poisonous insect. Contact your healthcare provider if: ?? You have a fever. ?? The area becomes red, warm, tender, and swollen beyond the area of the bite or sting. ?? You have questions or concerns about your condition or care. Medicines: ?? Antihistamines decrease itching and rash. ?? Epinephrine is used to treat severe allergic reactions such as anaphylaxis. ?? Take your medicine as directed. Call your healthcare provider if you think your medicine is not helping or if you have side effects. Tell him if you are allergic to any medicine. Keep a list of the medicines, vitamins, and herbs you take. Include the amounts, and when and why you take them. Bring the list or the pill bottles to follow-up visits. Carry your medicine list with you in case of an emergency. Steps to take for signs or symptoms of anaphylaxis: ?? Immediately give 1 shot of epinephrine only into the outer thigh muscle. ?? Leave the shot in place as directed. Your healthcare provider may recommend you leave it in place for up to 10 seconds before you remove it. This helps make sure all of the epinephrine is delivered. ?? Call 911 and go to the emergency department, even if the shot improved symptoms. Do not drive yourself. Bring the used epinephrine shot with you. Safety precautions if you had an allergic reaction: ?? Keep 2 shots of epinephrine with you at all times. You may need a second shot, because epinephrine only works for about 20 minutes and symptoms may return. Your healthcare provider can show you and family members how to give the shot. Check the expiration date every month and replace it before it expires. ?? Create an action plan. Your healthcare provider can help you create a written plan that explainsthe allergy and an emergency plan to treat a reaction. The plan explains when to give a second epinephrine shot if symptoms return or do not improve after the first. Give copies of the action plan and emergency instructions to family members, work and school staff, and daycare providers. Show them how to give a shot of epinephrine. ?? Carry medical alert identification. Wear medical alert jewelry or carry a card that says you have an insect allergy. Ask your healthcare provider where to get these items. If an insect bites or stings you: ?? Remove the stinger. Scrape the stinger out with your fingernail, edge of a credit card, or a knife blade. Do not squeeze the wound. Gently wash the area with soap and water. ?? Remove the tick. Ticks must be removed as soon as possible so you do not get diseases passed through tick bites. Ask your healthcare provider for more information on tick bites and how to remove ticks. Care for a bite or sting wound: ?? Elevate the affected area. Prop the wound above the level of your heart, if possible. Elevate the area for 10 to 20 minutes each hour or as directed by your healthcare provider. ?? Use compresses. Soak a clean washcloth in cold water, wring it out, and put it on the bite or sting. Use the compress for 10 to 20 minutes each hour or as directed by your healthcare provider. After 24 to 48 hours, change to warm compresses. ?? Apply a paste. Add water to baking soda to make a thick paste. Put the paste on the area for 5 minutes. Rinse gently to remove the paste. Prevent another insect bite or sting: ?? Do not wear bright-colored or flower-print clothing when you plan to spend time outdoors. Do notuse hairspray, perfumes, or aftershave. ?? Do not leave food out. ?? Empty any standing water and wash containers with soap and water every 2 days. ?? Put screens on all open windows and doors. ?? Put insect repellent that contains DEET on skin that is showing when you go outside. Put insect repellent at the top of your boots, bottom of pant legs, and sleeve cuffs. Wear long sleeves, pants,and shoes. ?? Use citronella candles outdoors to help keep mosquitoes away. Put a tick and flea collar on pets. ?? 2016 [employer]. Information is for End User's use only and may not be sold, redistributed or otherwise used for commercial purposes. All illustrations and images included in CareNotes?? are the copyrighted property of [employer]. or [employer]. The above information is an ranger aide only. It is not intended as medical advice for individual conditions or treatments. Talk to your doctor, nurse or pharmacist before following any medical regimen to see if it is safe and effective for you. C UNIX DEVELOPER documented in this encounter Progress Notes * Lucie Sauceda - 08/05/2016 2:44 PM CST Hospitalist Nocturnist Physician correlated primary dx ,skin disruption, per provider documentation, reason for visit and service provided Per correct coding guidelines Bug Bite cannot be primary diagnosis - code symptoms/signs/complaints C UNIX DEVELOPER * Amalia Salicdo DO - 08/02/2016 10:00 AM CST Images from the original note were not included. Acute Visit HPI: Leti Soto is a 25 y.o. female is here today for Chief Complaint Patient presents with ??? Allergic reaction all over body Patient of dr. Munoz presents to day with complain of with spots that she has had since Jul 02, whenshe went camping. Spots are itchy, and have spread to other areas. Has tried hydrocortisone cream, benadryl, and claritin but no relief and persistent. Would like 3rd HPV today. Denies fever, no oralsores, no other exposures but works as [employer]. No visible bugs Review of Systems Constitutional: Negative for chills, diaphoresis and fever. Respiratory: Negative for cough. Musculoskeletal: Negative for joint pain. Skin: Positive for itching and rash. Past Medical History Diagnosis Date ??? NEGATIVE PAST MEDICAL HISTORY - SEE PROBLEM LIST ??? metoprolol succinate XL 24hr (TOPROL XL) 50 MG tablet ??? norgestimate-ethinyl estradiol (SPRINTEC 28) 0.25-35 MG-MCG tablet ??? Melatonin 3 MG Allergies Allergen Reactions ??? Penicillins Rash Family History Problem Relation Age of Onset ??? Depression Mother ??? Anxiety Disorder Mother ??? Hypertension Father ??? Diabetes Father ??? Depression Maternal Grandmother ??? Anxiety Disorder Maternal Grandmother agoraphobia ??? Diabetes Maternal Grandfather ??? Cancer Breast Paternal Grandmother ??? Heart Disease Father no [place] ??? Heart Disease Maternal Grandfather ??? Cancer Breast 2 maternal great aunts Past Surgical History Procedure Laterality Date ??? Cholecystectomy, laparoscopic 2008 ??? [place] tooth extraction History Social History ??? Marital status: Single Spouse name: N/A ??? Number of children: 0 ??? Years of education: 16 Occupational History ??? 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 Smoking status: Never Smoker ??? Smokeless tobacco: Never Used ??? Alcohol use: 0.0 oz/week 0 Standard drinks or equivalent per week Comment: occasional mixed drink ??? Drug use: No ??? Sexual activity: Not Currently Partners: Male Other Topics Concern ??? Not on file Social History Narrative Born and raised in [place], [place] Lives at home with parents and a friend Exercise: 3 times a week Diet: 1600 calorie diet, 90 oz water daily Caffeine: maybe 1 cup coffee a day, 1-2 Diet soda a day; usually only when she's working Spirituality: Non-rastafari Restorationist Exam: BP 127/84 (BP SITE: LEFT ARM, BP POSITION: SITTING, BP CUFF SIZE: Large Adult) Pulse 74 Temp 98.2 ??F (Oral) Resp 18 Wt 135.7 kg (299 lb 3.2 oz) BMI 49.01 kg/m2 Physical Exam Constitutional: She is well-developed, well-nourished, and in no distress. HENT: Mouth/Throat: Oropharynx is clear and moist. Eyes: Conjunctivae are normal. Skin: Skin is warm and dry. Rash noted. No abrasion, no bruising and no petechiae noted. Rash is macular. Rash is not vesicular. She is not diaphoretic. Generalized macular rash over bilateral upper extremity, below the knee to toes and thoracic back down but sparing buttock, genitalia and breasts, and face Data: none Assessment & Plan: ICD-10-CM 1. Bug bite, initial encounter W57.XXXA triamcinolone acetonide (KENALOG) 0.1 % cream predniSONE (DELTASONE) 20 MG tablet sulfamethoxazole-trimethoprim (BACTRIM DS; SEPTRA DS) 800-160 MG tablet 2. Need for HPV vaccination Z23 [facility] ONE VACCINE HPV VACCINE, 4 VALENT, IM Bug bite Persistent reaction to presumed bug bites Start short course Prednisone 20 MG daily for 7-10 days Can continue benadryl 25 MG -50 MG Q nightly and non-sedating loratadine , zyrtec, or sofia Advised washing bedding in hot water Bactrim added due to exposure to MRSA and some open sores Need for HPV vaccination Completed 3rd HPV today Patient Instructions Insect Bite or Sting WHAT YOU NEED TO KNOW: Most insect bites and stings are not dangerous and go away without treatment. Your symptoms may be mild, or you may develop anaphylaxis. Anaphylaxis is a sudden, life-threatening reaction that needs immediate treatment. Common examples of insects that bite or sting are bees, ticks, mosquitoes, spiders, and ants. Insect bites or stings can lead to diseases such as malaria, West Nile virus, Lyme disease, or [place] Spotted Fever. DISCHARGE INSTRUCTIONS: Call 911 for signs or symptoms of anaphylaxis, such as trouble breathing, swelling in your mouth orthroat, or wheezing. You may also have itching, a rash, hives, or feel like you are going to faint. Seek care immediately if: ?? You are stung on your tongue or in your throat. ?? A white area forms around the bite. ?? You are sweating badly or have body pain. ?? You think you were bitten or stung by a poisonous insect. Contact your healthcare provider if: ?? You have a fever. ?? The area becomes red, warm, tender, and swollen beyond the area of the bite or sting. ?? You have questions or concerns about your condition or care. Medicines: ?? Antihistamines decrease itching and rash. ?? Epinephrine is used to treat severe allergic reactions such as anaphylaxis. ?? Take your medicine as directed. Call your healthcare provider if you think your medicine is not helping or if you have side effects. Tell him if you are allergic to any medicine. Keep a list of the medicines, vitamins, and herbs you take. Include the amounts, and when and why you take them. Bring the list or the pill bottles to follow-up visits. Carry your medicine list with you in case of an emergency. Steps to take for signs or symptoms of anaphylaxis: ?? Immediately give 1 shot of epinephrine only into the outer thigh muscle. ?? Leave the shot in place as directed. Your healthcare provider may recommend you leave it in place for up to 10 seconds before you remove it. This helps make sure all of the epinephrine is delivered. ?? Call 911 and go to the emergency department, even if the shot improved symptoms. Do not drive yourself. Bring the used epinephrine shot with you. Safety precautions if you had an allergic reaction: ?? Keep 2 shots of epinephrine with you at all times. You may need a second shot, because epinephrine only works for about 20 minutes and symptoms may return. Your healthcare provider can show you and family members how to give the shot. Check the expiration date every month and replace it before it expires. ?? Create an action plan. Your healthcare provider can help you create a written plan that explainsthe allergy and an emergency plan to treat a reaction. The plan explains when to give a second epinephrine shot if symptoms return or do not improve after the first. Give copies of the action plan and emergency instructions to family members, work and school staff, and daycare providers. Show them how to give a shot of epinephrine. ?? Carry medical alert identification. Wear medical alert jewelry or carry a card that says you have an insect allergy. Ask your healthcare provider where to get these items. If an insect bites or stings you: ?? Remove the stinger. Scrape the stinger out with your fingernail, edge of a credit card, or a knife blade. Do not squeeze the wound. Gently wash the area with soap and water. ?? Remove the tick. Ticks must be removed as soon as possible so you do not get diseases passed through tick bites. Ask your healthcare provider for more information on tick bites and how to remove ticks. Care for a bite or sting wound: ?? Elevate the affected area. Prop the wound above the level of your heart, if possible. Elevate the area for 10 to 20 minutes each hour or as directed by your healthcare provider. ?? Use compresses. Soak a clean washcloth in cold water, wring it out, and put it on the bite or sting. Use the compress for 10 to 20 minutes each hour or as directed by your healthcare provider. After 24 to 48 hours, change to warm compresses. ?? Apply a paste. Add water to baking soda to make a thick paste. Put the paste on the area for 5 minutes. Rinse gently to remove the paste. Prevent another insect bite or sting: ?? Do not wear bright-colored or flower-print clothing when you plan to spend time outdoors. Do notuse hairspray, perfumes, or aftershave. ?? Do not leave food out. ?? Empty any standing water and wash containers with soap and water every 2 days. ?? Put screens on all open windows and doors. ?? Put insect repellent that contains DEET on skin that is showing when you go outside. Put insect repellent at the top of your boots, bottom of pant legs, and sleeve cuffs. Wear long sleeves, pants,and shoes. ?? Use citronella candles outdoors to help keep mosquitoes away. Put a tick and flea collar on pets. ?? 2016 [employer]. Information is for End User's use only and may not be sold, redistributed or otherwise used for commercial purposes. All illustrations and images included in CareNotes?? are the copyrighted property of [employer]. or [employer]. The above information is an ranger aide only. It is not intended as medical advice for individual conditions or treatments. Talk to your doctor, nurse or pharmacist before following any medical regimen to see if it is safe and effective for you. If symptoms do not start to improve in 48 hours or if they worsen, parent(s) are instructed to callor make an appointment or go to ER if necessary. C UNIX DEVELOPER * Kirsten Gurrola RN - 08/02/2016 9:49 AM CST Leti Soto is in office today with spots that she has had since Jul 02, when she went camping. Spots are itchy, and have spread to other areas. Has tried hydrocortisone cream, benadryl, and claritin. Would like 3rd HPV today. Kirsten Gurrola RN 08/02/2016 9:51 AM 3rd dose of HPV vaccine 0.5ml given IM in L deltoid. Pt tolerated well, denies discomfort. Kirsten Gurrola RN 08/02/2016 10:38 AM C UNIX DEVELOPER documented in this encounter Plan of Treatment Not on file documented as of this encounter Visit Diagnoses Diagnosis Rash and other nonspecific skin eruption- Primary Bug bite, initial encounter Need for HPV vaccination Need for prophylactic vaccination and inoculation against other viral diseases * Assessment & Plan Note - Amalia Salcido DO - 08/02/2016 10:41 AM CSTAssociated Problem(s): Need for HPV vaccination (Resolved 11/26/2018) Completed 3rd HPV today C UNIX DEVELOPER * Assessment & Plan Note - Amalia Salcido DO - 08/02/2016 10:39 AM CSTAssociated Problem(s): Bug bite (Resolved 11/26/2018) Persistent reaction to presumed bug bites Start short course Prednisone 20 MG daily for 7-10 days Can continue benadryl 25 MG -50 MG Q nightly and non-sedating loratadine , zyrtec, or sofia Advised washing bedding in hot water Bactrim added due to exposure to MRSA and some open sores C UNIX DEVELOPER documented in this encounter Care Teams Band Salvager Relationship Specialty Start Date End Date Malena Munoz MD PCP - General Family Medicine 01/12/16 04/03/19 documented as of this encounter
--- OUTSIDE RECORDS SUMMARY | 2024-10-07 02:46 | XMS_ITS | Encounter Summary ---
Author Organization [facility] Address [address] [place] [address] Care Team Providers Care Foxpro Developer Name Role Phone Malena Munoz MD Primary Care Provider [phone] Reason for Visit * Reason Onset Date Comments MEDICATION REFILL 08/02/2017 Encounter Details Date Type Department Care Team (Late st Contact Info) Description 08/02/2017 Refill [facility] Medical [facility] - Family Medicine [address] [place] [phone] [place] [address] [place] [address] MEDICATION REFILL Social History Tobacco Use Types [...] Telephone Encounter - Carol Dodson RN - 08/02/2017 2:34 PM CST Requested Prescriptions Pending Prescriptions Disp Refills ??? phentermine (ADIPEX-P) 37.5 MG capsule 30 capsule 0 Sig: Take 1 capsule by mouth daily before breakfast Last appt: 06/07/17 Next appt: 09/06/17 Number of cancel or no shows in the last 12 months: 0 Allergies have been reviewed. Correct pharmacy is populated. Please sign RX and close encounter. ING CUTTER SYNTHETIC CLOTH documented in this encounter Plan of Treatment Not on file documented as of this encounter Visit Diagnoses Diagnosis Morbid obesity due to excess calories (HCC) BMI 40.0-44.9, adult (HCC) Body Mass Index 40.0-44.9, adult documented in this encounter Care Teams Foxpro Developer Relationship Specialty Start Date End Date Malena Munoz MD PCP - General Family Medicine 01/12/16 04/03/19 documented as of this encounter
--- OUTSIDE RECORDS SUMMARY | 2024-10-07 02:46 | XMS_ITS | Encounter Summary ---
Author Organization [facility] Address [address] [place] [address] Care Team Providers Care Procurement Technician Name Role Phone Malena Munoz MD Primary Care Provider [phone] Reason for Visit * Reason Comments Refill Request Encounter Details Date Type Department Care Team (Late st Contact Info) Description 03/15/2018 Refill [facility] Medical [facility] - Family Medicine [address] [place] [address] [place] [address] [address] [place] [address] Refill Request Social History Tobacco Use Types [...] Encounter - Malena Munoz MD - 03/15/2018 9:04 AM CDT Refill sent to pharmacy. Please have patient make an appointment within the next 3 months for a routine physical before I can give her additional control refills. Thank you. * Telephone Encounter - Anthony Caballero LPN - 03/15/2018 8:48 AM CDT Requested Prescriptions Pending Prescriptions Disp Refills ??? MONONESSA 0.25-35 MG-MCG tablet [Pharmacy Med Name: MONONESSA TABLETS 28S] 84 tablet 0 Sig: TAKE 1 TABLET BY MOUTH EVERY DAY Last appt 06/07/17 Next appt none Number of cancel or no shows in the last 12 months:2 Allergies have been reviewed. Correct pharmacy is populated. Please sign RX and close encounter. documented in this encounter Plan of Treatment Not on file documented as of this encounter Visit Diagnoses Not on filedocumented in this encounter Care Teams Procurement Technician Relationship Specialty Start Date End Date Malena Munoz MD PCP - General Family Medicine 01/12/16 04/03/19 documented as of this encounter
--- OUTSIDE RECORDS SUMMARY | 2024-10-07 02:46 | XMS_ITS | Encounter Summary ---
Author Organization [facility] Address [address] [facility] [place] [address] Care Team Providers Care Salesperson Used Cars Name Role Phone Malena Munoz MD Primary Care Provider [phone] Reason for Visit * Reason Comments Refill Request Encounter Details Date Type Department Care Team (Late Contact Info) Description 05/14/2018 Refill [facility] - Family Medicine [address] [place] [phone] [place] [address] [facility] [address] [place] [id number] Refill Request Social History Tobacco Use Types [...] Telephone Encounter - Nida Negrete Erika - 05/14/2018 9:38 AM CDT Requested Prescriptions Pending Prescriptions Disp Refills ??? MONONESSA 0.25-35 MG-MCG tablet [Pharmacy Med Name: MONONESSA TABLETS 28S] 28 tablet 0 Sig: TAKE 1 TABLET BY MOUTH EVERY DAY Last appt: 08/31/17 ( Dr Hewitt ) 06/07/17 ( Dr. Munoz) Next appt: None scheduled Number of cancel or no shows in the last 12 months: 2 Allergies have been reviewed. Correct pharmacy is populated. Please sign RX and close encounter. Refill request too soon. Script for 90 day supply sent 03/15. Patient needs appointment before further fills. documented in this encounter Plan of Treatment Not on file documented as of this encounter Visit Diagnoses Not on filedocumented in this encounter Care Teams Salesperson Used Cars Relationship Specialty Start Date End Date Malena Munoz MD PCP - General Family Medicine 01/12/16 04/03/19 documented as of this encounter
--- OUTSIDE RECORDS SUMMARY | 2024-10-07 02:46 | XMS_ITS | Encounter Summary ---
Author Organization [facility] Address [address] [place] [address] Care Team Providers Care Personal Fitness Manager Name Role Phone Malena Munoz MD Primary Care Provider [phone] Reason for Visit * Reason Comments Imm Inj Encounter Details Date Type Department Care Team (Late st Contact Info) Description 03/29/2019 10:00 AM CDT Office Visit [facility] AT [address] [phone] Provider, [facility] Need for vaccination (Primary Dx) Social History [...] or have serious hearing difficult y? No 02/12/2019 Is person blind or have serious difficulty seein g? No 02/12/2019 Does person have serious dif ficulty walking/climbing stairs? No 02/12/2019 Does person have difficulty dressing/bathing? No 02/12/2019 Does person have difficulty doing errands alone? No 02/12/2019 Cognitive Status Response Date of Assessm ent Does person have difficulty concentrating/remembering/making decisions? No 02/12/2019 documented as of this encounter Patient Instructions * Patient Instructions* Jony Sawyer, TOWER EQUIPMENT INSTALLER-PAPER COATING SUPERVISOR - 03/29/2019 10:21 AM CDT Tdap and Td Vaccines for Adults CANDY SPREADER: Tdap and Td vaccines are shots given to protect you and others around you from tetanus, diphtheria,and pertussis (whooping cough). These are severe infections caused by bacteria. Tetanus bacteria are found in dirt, manure, and dust. The bacteria enter the body through open skin, such as puncture wounds and lombardo. Diphtheria and pertussis bacteria are spread from person to person. Pertussis is usually more serious in babies and young children. Call your local emergency number (911 in the ) if: ?? Your mouth and throat are swollen. ?? You are wheezing or have trouble breathing. ?? You have chest pain or your heart is beating faster than usual. Call your doctor if: ?? You have severe pain, redness, and swelling in your arm where the shot was given. ?? Your face is red or swollen. ?? You have hives that spread over your body. ?? You feel weak or dizzy. ?? You have a fever or chills. ?? You have a headache, body aches, or joint pain. ?? You have nausea or diarrhea, or you are vomiting. ?? You have questions or concerns about the vaccine. Why you may need the Tdap vaccine: ?? You did not get some or any of the recommended DTaP doses as a child. ?? You did not get Tdap when you were 11 or 12 years old. ?? You are a healthcare worker who never got a dose of Tdap. ?? You never got a dose of Tdap and will have close contact with a baby younger than 12 months. Getthe vaccine within 2 weeks of the close contact, if possible. ?? You have a severe cut or burn. ?? You are a woman. You need 1 dose of Tdap during each , when you are 27 to 36 weeks along. ?? You have just had a baby and did not get a dose of Tdap during your . This dose is onlygiven if you never had a dose of Tdap. When the Td vaccine is given: The Td vaccine is a booster shot that may be given every 10 years. Tdcan also be given after a severe wound or burn to prevent tetanus. This may be given if it has beenat least 5 years since your last Td vaccine. Do not get the Tdap vaccine if: ?? You are allergic to any part of the vaccine. ?? You had a severe allergic reaction to DTaP or DTP. ?? You had seizures or a coma within 7 days of receiving DTaP or DTP, caused by the vaccine. You can still safely get the Td vaccine in this case. Do not get the Td vaccine if: ?? You had an allergic reaction to DTaP, DTP, Tdap, or Td. ?? You are allergic to any part of the Td vaccine. Reasons to wait to get the Tdap or Td vaccine: Your provider may wait to give the vaccine until he or she feels it is safe for you. Your provider will need to know if you have or had any of the following: ?? A seizure disorder or a problem with your nervous system ?? Severe pain or swelling after a dose of DTaP, DTP, or Td ?? Any severe allergy ?? A history of Guillain-Dover?? syndrome ?? A fever of 105??F (40.5??C) after getting DTaP or DTP ?? A fever or any current illness Risks of the Tdap and Td vaccines: The area where the vaccine was given may be red, tender, or swollen. This should get better in 1 to 2 days. Rarely, you may develop severe shoulder pain that lasts longer than 2 days. You may develop a fever. You may have an allergic reaction to the vaccine. This can be life-threatening. Apply a warm compress to the injection area as directed to decrease pain and swelling. Follow up with your doctor as directed: Write down your questions so you remember to ask them during your visits. ?? Copyright [employer] 2019 Information is for End User's use only and may not be sold, redistributed or otherwise used for commercial purposes. All illustrations and images included in CareNotes?? are the copyrighted property of [employer] or [employer]5 The above information is an pharmacist's aide only. It is not intended as medical advice for individual conditions or treatments. Talk to your doctor, nurse or pharmacist before following any medical regimen to see if it is safe and effective for you. documented in this encounter Progress Notes * Jony Sawyer APRN-CNP - 03/29/2019 10:24 AM CDT Immunization History Administered Date(s) Administered ??? FLU VACCINE QUAD IIV4 SPLIT PF IM 06/07/2017 ??? Human Papilloma Virus Quadrivalent Vaccine 01/12/2016, 02/19/2016, 08/02/2016 ??? Influenza 06/25/2016, 06/25/2018 ??? Tdap 08/13/2015, 03/29/2019 Pt tolerated Tdap well Patient tolerated without difficulty. Hemostasis achieved, and sterile band-aid placed. ?? Immunization questionnaire scanned into the medical record. -Advised patient to keep a record of all vaccinations. (may use [facility] MyChart if desired) -May take Tylenol (acetaminophen) as needed for aches/pains per package directions. -If you develop redness, swelling at the injection site; it should resolve on its own within 5-7 days of injection. Use warm compresses as needed to the site. -Return to clinic for an evaluation if needed. -Current CDC VIS Handout given ?? Follow-up with your No primary care provider on file. as directed. If no PCP listed, referral offered. documented in this encounter Plan of Treatment Not on file documented as of this encounter Visit Diagnoses Diagnosis Need for vaccination- Primary Need for prophylactic vaccination and inoculation against unspecified single disease documented in this encounter Care Teams Personal Fitness Manager Relationship Specialty Start Date End Date Malena Munoz MD PCP - General Family Medicine 01/12/16 04/03/19 documented as of this encounter
--- OUTSIDE RECORDS SUMMARY | 2024-10-07 02:46 | XMS_ITS ---
Author Organization [facility] Address [address] [place] [address] Care Team Providers Care Recycling Operations Manager Name Role Phone VinceCrystal grigsby Primary Care Provider [phone] Acute DC - [facility] Status:Closed (Closed) Start date:12/16/2022 Enrollment reason:Identified using claims or encounter data End date:12/16/2022 Close reason:Attribution Challenge Continued Care and Services Coordination
--- OUTSIDE RECORDS SUMMARY | 2024-10-07 02:46 | XMS_ITS | Encounter Summary ---
Author Organization [facility] Address [address] [place] [address] Care Team Providers Care School Child Care Attendant Name Role Phone Malena Munoz MD Primary Care Provider [phone] Reason for Visit * Reason Comments Refill Request Encounter Details Date Type Department Care Team (Late st Contact Info) Description 04/07/2017 Refill [facility] - Family Medicine [address] [place] [address] [place] [address] [address] [address] [facility] [address] [place] [address] Refill Request Social History Tobacco Use Types [...] on filedocumented in this encounter Care Teams School Child Care Attendant Relationship Specialty Start Date End Date Malena Munoz MD PCP - General Family Medicine 01/12/16 04/03/19 documented as of this encounter
--- OUTSIDE RECORDS SUMMARY | 2024-10-07 02:46 | XMS_ITS | Encounter Summary ---
Author Organization [facility] Address [address] [place] [address] Care Team Providers Care Basketball Scout Name Role Phone Malena Munoz MD Primary Care Provider [phone] Reason for Visit * Reason Onset Date Comments MEDICATION REFILL 03/08/2017 Encounter Details Date Type Department Care Team (Late st Contact Info) Description 03/08/2017 Refill [facility] Medical [facility] - Family Medicine [address] [place] [phone] [place] [address] [facility] [address] [place] [address] MEDICATION REFILL Social History Tobacco Use Types [...] Telephone Encounter - Carol Dodson RN - 03/08/2017 2:51 PM CDT Requested Prescriptions Pending Prescriptions Disp Refills ??? norgestimate-ethinyl estradiol (MONONESSA) 0.25-35 MG-MCG tablet 28 Tab 5 Sig: Take 1 Tab by mouth once daily ??? metoprolol succinate XL 24hr (TOPROL XL) 50 MG tablet 30 Tab 2 Sig: Take 1 Tab by mouth once daily * Telephone Encounter - Krista Hazel - 03/08/2017 11:30 AM CDT Leti Soto Allergies Allergen Reactions ??? Penicillins Rash Requested Prescriptions Pending Prescriptions Disp Refills ??? norgestimate-ethinyl estradiol (MONONESSA) 0.25-35 MG-MCG tablet 28 Tab 0 Sig: Take 1 Tab by mouth once daily ??? metoprolol succinate XL 24hr (TOPROL XL) 50 MG tablet 5 Sig: Take 1 Tab by mouth once daily Last Refill: 01/17/17 Last OV: 10/31/16 Next OV:03/22/17 documented in this encounter Plan of Treatment Not on file documented as of this encounter Visit Diagnoses Diagnosis Irregular periods/menstrual cycles- Primary Irregular menstrual cycle Mitral valve prolapse Mitral valve disorders documented in this encounter Care Teams Basketball Scout Relationship Specialty Start Date End Date Malena Munoz MD PCP - General Family Medicine 01/12/16 04/03/19 documented as of this encounter
--- OUTSIDE RECORDS SUMMARY | 2024-10-07 02:46 | XMS_ITS | Encounter Summary ---
Author Organization [facility] Address [address] [place] [address] Care Team Providers Care Ordnance Truck Installation Mechanic Name Role Phone Malena Munoz MD Primary Care Provider [phone] Reason for Visit * Reason Comments Weight Check Encounter Details Date Type Department Care Team (Late st Contact Info) Description 06/07/2017 9:40 AM CDT Office Visit [facility] - Family Medicine [address] [place] [phone] [place] [address] [address] [place] [address] Morbid obesity due to excess calories (HCC) (Primary Dx); BMI 40.0-44.9, adult (HCC); Flu vaccine need Social History Tobacco Use Types Packs/Day Years [...] Sign Reading Time Taken Comments Blood Pressure 134/81 06/07/2017 9:26 AM CDT Pulse 66 06/07/2017 9:26 AM CDT Temperature 36.7 ??C (98 ??F) 06/07/2017 9:26 AM CDT Respiratory Rate 18 06/07/2017 9:26 AM CDT Oxygen Saturation 100% 06/07/2017 9:26 AM CDT Inhaled Oxygen Concentration - - Weight 120.8 kg (266 lb 6.4 oz) 06/07/2017 9:26 AM CDT Height 166.4 cm (5' 5.5 ) 06/07/2017 9:26 AM CDT Body Mass Index 43.66 06/07/2017 9:26 AM CDT documented in this encounter Progress Notes * Malena Munoz MD - 06/07/2017 9:50 AM CDT Follow Up Visit HPI: Leti Soto is a 26 y.o. female here for follow up on: Accompanied by: self Home scale 264lb this morning; started out at 275lb, so total weight loss so far in 2 months: 11 lb Moved last week to live with boyfriend, Geronimo, so hasn't been exercising as regularly but is now very close to a [employer], which is her gym Headache only when she doesn't drink enough water Denies chest pain, SOA, palpitations, or insomnia Denies problems with phentermine, and increased dose does help with appetite suppression more Review of Systems: Constitutional: No fatigue, fevers, changes in weight Psych: No changes in mood Cardiovascular: No chest pain, palpitations Respiratory: No cough, shortness of breath Gastrointestinal: No abdominal pain, nausea, vomiting, change in bowel habits, black or bloody stools Past Medical History: Diagnosis Date ??? NEGATIVE PAST MEDICAL HISTORY - SEE PROBLEM LIST Current Medications ??? metoprolol succinate XL 24hr (TOPROL XL) 50 MG tablet ??? norgestimate-ethinyl estradiol (MONONESSA) 0.25-35 MG-MCG tablet ??? diphenhydrAMINE (BENADRYL) 25 MG capsule Allergies Allergen Reactions ??? Tramadol Other Shaky, increased heart rate, sweating. ??? Penicillins Rash Past Surgical History: Procedure Laterality Date ??? Cholecystectomy, Laparoscopic 2008 ??? LASIK SURGERY Bilateral 11/2016 ??? [place] Tooth Extraction Exam: BP 134/81 Pulse 66 Temp 98 ??F (Oral) Resp 18 Ht 1.664 m (5' 5.5 ) Wt 120.8 kg (266 lb 6.4 oz) McM1718% BMI 43.66 kg/m2 GENERAL: Well groomed, well nourished, good hygiene, obese, no acute distress PSYCH: Alert & oriented, normal mood, affect, insight EYE: Conjunctiva normal bilaterally CARDIOVASCULAR: RRR without murmurs. Normal heart sounds. No edema. No carotid bruit. RESPIRATORY: Respirations unlabored. Clear bilaterally with normal air movement. No adventitious sounds. NEURO: Normal gait. Hearing intact to voice SKIN: warm and dry, no rashes Assessment & Plan: (E66.01) Morbid obesity due to excess calories (primary encounter diagnosis) Plan: Doing very well. Continue lifestyle changes with eating healthy and getting regular exercise.Continue phentermine 37.5 mg daily. Since she is doing well, I will see her in 3 months, and she can call a few days before she runs out to get refills monthly until then. phentermine (ADIPEX-P) 37.5MG capsule (Z68.41) BMI 40.0-44.9, adult Plan: phentermine (ADIPEX-P) 37.5 MG capsule (Z23) Flu vaccine need Plan: FLU VACCINE QUAD IIV4 SPLIT PF IM, PCHG IMMUNIZATION ADMINISTRATION ONE VACCINE Return in about 3 months (around 09/06/2017) for f/u weight. Will plan on re- measuring her calf size at next visit Malena Munoz MD 06/07/2017 10:01 AM There are no preventive care reminders to display for this patient. * Nida Negrete - 06/07/2017 9:46 AM CDT Leti Soto here for follow up with weight. No other concerns. documented in this encounter Plan of Treatment Not on file documented as of this encounter Visit Diagnoses Diagnosis Morbid obesity due to excess calories (HCC)- Primary BMI 40.0-44.9, adult (HCC) Body Mass Index 40.0-44.9, adult Flu vaccine need Need for prophylactic vaccination and inoculation against influenza documented in this encounter Care Teams Ordnance Truck Installation Mechanic Relationship Specialty Start Date End Date Malena Munoz MD PCP - General Family Medicine 01/12/16 04/03/19 documented as of this encounter
--- OUTSIDE RECORDS SUMMARY | 2024-10-07 02:46 | XMS_ITS | Encounter Summary ---
Author Organization [facility] Address [address] [place] [address] Care Team Providers Care Telegraph Installer Name Role Phone Malena Munoz MD Primary Care Provider [phone] Reason for Visit * Reason Onset Date Comments MEDICATION REFILL 05/31/2018 Encounter Details Date Type Department Care Team (Late st Contact Info) Description 05/31/2018 Refill [facility] Medical [facility] - Family Medicine [address] [place] [phone] [place] [address] [facility] [address] [place] [address] MEDICATION REFILL Social History Tobacco Use Types [...] encounter Miscellaneous Notes * Telephone Encounter - Mary Peters - 06/01/2018 2:56 PM CDT Requested Prescriptions Pending Prescriptions Disp Refills ??? norgestimate-ethinyl estradiol (MONONESSA) 0.25-35 MG-MCG tablet 84 tablet 0 Sig: Take 1 tablet by mouth once daily Last refill 03/15/2018 Last appt 08/31/2017 Next appt 06/29/2018 Number of cancel or no shows in the last 12 months:2 Allergies have been reviewed. Correct pharmacy is populated. Please sign RX and close encounter. documented in this encounter Plan of Treatment Not on file documented as of this encounter Visit Diagnoses Not on filedocumented in this encounter Care Teams Telegraph Installer Relationship Specialty Start Date End Date Malena Munoz MD PCP - General Family Medicine 01/12/16 04/03/19 documented as of this encounter
--- OUTSIDE RECORDS SUMMARY | 2024-10-07 02:46 | XMS_ITS | Encounter Summary ---
Author Organization [facility] Address [address] [facility] [place] [address] Care Team Providers Care Admitting Clerk Name Role Phone Malena Munoz MD Primary Care Provider [phone] Reason for Visit * Reason Onset Date Comments MEDICATION REFILL 07/04/2017 Encounter Details Date Type Department Care Team (Late st Contact Info) Description 07/04/2017 Telephone [facility] - Family Medicine [address] [place] [address] [place] [address] [facility] [address] [place] [address] MEDICATION REFILL Social History Tobacco Use Types [...] on filedocumented in this encounter Care Teams Admitting Clerk Relationship Specialty Start Date End Date Malena Munoz MD PCP - General Family Medicine 01/12/16 04/03/19 documented as of this encounter
--- OUTSIDE RECORDS SUMMARY | 2024-10-07 02:46 | XMS_ITS | Encounter Summary ---
Author Organization [facility] Address [address] [place] [address] Care Team Providers Care Manager Surgery Name Role Phone Malena Munoz MD Primary Care Provider [phone] Reason for Visit * Reason Comments Refill Request Encounter Details Date Type Department Care Team (Late st Contact Info) Description 11/30/2016 Refill [facility] Medical [facility] - Family Medicine [address] [place] [phone] [place] [address] [facility] [address] [place] [id number] Refill Request Social History Tobacco Use Types [...] Telephone Encounter - Carol Dodson RN - 11/30/2016 1:33 PM CST Phoned Leti with Dr. Munoz's message on . L PIECE CUTTER * Telephone Encounter - Malena Munoz MD - 11/30/2016 12:28 PM SMALL PIECE CUTTER Rx sent to pharmacy. When patient calls back, please ask how well the meloxicam is helping. If she is still having back pain going down the left leg, please see physical therapy; if physical therapy is not helping, please follow up with me in clinic. Thank you. L PIECE CUTTER * Telephone Encounter - Carol Dodson RN - 11/30/2016 11:06 AM CST Phoned Leti to inquire if she has been contacted by PT or Orthopedics. No answer. Left vm. L PIECE CUTTER * Telephone Encounter - Carol Dodson RN - 11/30/2016 10:47 AM CST Requested Prescriptions Pending Prescriptions Disp Refills ??? meloxicam (MOBIC) 15 MG tablet [Pharmacy Med Name: MELOXICAM 15MG TABLETS] 30 Tab 0 Sig: TAKE 1/2 TO 1 TABLET BY MOUTH EVERY DAY NEEDED FOR PAIN Last appt: 10/31/16 Next appt: none Number of cancel or no shows in the last 12 months: 1 Allergies have been reviewed. Correct pharmacy is populated. Please sign RX and close encounter. L PIECE CUTTER documented in this encounter Plan of Treatment Not on file documented as of this encounter Visit Diagnoses Diagnosis Low back pain radiating to left lower extremity- Primary documented in this encounter Care Teams Manager Surgery Relationship Specialty Start Date End Date Malena Munoz MD PCP - General Family Medicine 01/12/16 04/03/19 documented as of this encounter
--- OUTSIDE RECORDS SUMMARY | 2024-10-07 02:46 | XMS_ITS | Encounter Summary ---
Author Organization [facility] Address [address] [place] [address] Care Team Providers Care Room Attendant Name Role Phone Malena Munoz MD Primary Care Provider [phone] Reason for Visit * Reason Onset Date Comments Medication Prior Auth Request 04/12/2017 Encounter Details Date Type Department Care Team (Late st Contact Info) Description 04/12/2017 Telephone [facility] - Family Medicine [address] [place] [address] [place] [address] [facility] [address] [place] [phone] Medication Prior Auth Request Social History Tobacco Use Types Packs/Day [...] * Telephone Encounter - Nida Negrete - 04/13/2017 10:17 AM CDT Patient called back. Ok with trying Phentermine by itself. See telephone encounter from 04/13/17. * Telephone Encounter - Princess Maria Alejandra - 04/12/2017 5:05 PM CDT Pt returning call that she missed earlier, however, office has now closed. Pt is requesting a call back again tomorrow 04/13 morning. * Telephone Encounter - Nida Negrete - 04/12/2017 4:14 PM CDT Left message for patient to call the office. * Telephone Encounter - Malena Munoz MD - 04/12/2017 3:05 PM CDT Please ask if patient would be okay with trying phentermine by itself first. If so, I'd recommend starting with 15mg once a day. Please let me know. Thank you. * Telephone Encounter - Nida Negrete - 04/12/2017 1:44 PM CDT Patient has not tried any other medications for weight loss. Do you want to try Phentermine by itself first? I don't think insurance will cover without trail of covered medications first. * Telephone Encounter - Stacia Johnson - 04/12/2017 12:31 PM CDT Received incoming call from patient advising that she'd just left Dr Munoz's appointment and her pharmacy has called her and stated that the phentermine- topiramate 24hr (QSYMIA) 3.75-23 MG capsule willneed a prior authorization. Pharmacy phone is [phone] or [phone]. Thank you. documented in this encounter Plan of Treatment Not on file documented as of this encounter Visit Diagnoses Not on filedocumented in this encounter Care Teams Room Attendant Relationship Specialty Start Date End Date Malena Munoz MD PCP - General Family Medicine 01/12/16 04/03/19 documented as of this encounter
--- OUTSIDE RECORDS SUMMARY | 2024-10-07 02:46 | XMS_ITS | Encounter Summary ---
Author Organization [facility] Address [address] [facility] [place] [address] Care Team Providers Care Welding Lead Burner Name Role Phone Malena Munoz MD Primary Care Provider [phone] Reason for Visit * Reason Onset Date Comments Update 12/22/2016 Encounter Details Date Type Department Care Team (Late st Contact Info) Description 12/22/2016 Telephone [facility] - Family Medicine [address] [place] [address] [place] [address] [facility] [address] [place] [address] Update Social History Tobacco Use Types Packs/Day [...] Telephone Encounter - Carol Dodson RN - 12/22/2016 10:01 AM CDT Phoned Leti and left vm confirming she should be evaluated in an UC, since we do not have any appointments available. Instructed to call back with questions. * Telephone Encounter - Rossana Delgado - 12/22/2016 7:08 AM CDT Patient called into the office with Left ear pain. The only appointment that was open was a 2:45 pm. Patient did not want to come in that late. Patient ask if she should go to the urgent care which upon that question I told her I could not tell her to go to the urgent care. I suggested that if she is in that much pain please make a positive decision to make I told her were she can locate one in he area and what time but didn't tell her to go. documented in this encounter Plan of Treatment Not on file documented as of this encounter Visit Diagnoses Not on filedocumented in this encounter Care Teams Welding Lead Burner Relationship Specialty Start Date End Date Malena Munoz MD PCP - General Family Medicine 01/12/16 04/03/19 documented as of this encounter
--- OUTSIDE RECORDS SUMMARY | 2024-10-07 02:46 | XMS_ITS | Encounter Summary ---
Author Organization [facility] Address [address] [facility] [place] [address] Care Team Providers Care Mortar Mixer Name Role Phone Malena Munoz MD Primary Care Provider [phone] Reason for Visit * Reason Comments Fall Encounter Details Date Type Department Care Team (Latest Contact Info) Description 02/12/2019 10:10 AM CDT - 02/12/2019 2:58 PM CDT Hospital Encounter [facility] [address] [place] [address] Rey Mar MD [address] [address] Discharge Disposition: Home or Self [...] Sign Reading Time Taken Comments Blood Pressure 128/64 02/12/2019 10:21 AM CDT Pulse - - Temperature 36.9 ??C (98.4 ??F) 02/12/2019 10:21 AM C DT Respiratory Rate 18 02/12/2019 10:21 AM CDT Oxygen Saturation - - Inhaled Oxygen Concentration - - Weight 140.2 kg (309 lb) 02/12/2019 10:10 AM CDT Height 167.6 cm (5' 6 ) 02/12/2019 10:10 AM CDT Body Mass Index 49.87 02/12/2019 10:10 AM CDT documented in this encounter Functional [...] No 02/12/2019 documented as of this encounter Discharge Instructions * Discharge Instructions* Jennifer Pop RN - 02/12/2019 2:57 PM CDT UNDELIVERED PATIENT DISCHARGE INSTRUCTIONS CALL YOUR DOCTOR for the following: ?? If you are less than 39 weeks and have move than 5 contractions [...] medical care immediately. ?? Any temperature above 101 degrees or as instructed by your care provider. ?? Headache that is not relieved by Tylenol (acetaminophen) ?? Any burning or painful urination or change in color or odor of your urine. ?? Increased swelling in your face, or hands. ?? Stomach pains, cramps, nausea,or diarrhea. Women's evaluation unit [phone] documented in this encounter Medications at Time [...] of this encounter Progress Notes * Dorys Peña RN - 02/12/2019 10:42 AM CDT Patient reported to the Women's Evaluation Unit s/p fall while walking her dog. Patient stated thatshe caught herself on her hands and knees, and skidded hitting her abdomen and chin. Abrasions noted on both knees, and hands. Small abrasion on her chin. Wounds cleansed with wound cleanser, antibiotic ointment and dressings applied. documented in this encounter Procedure Notes * Jennifer Pop RN - 02/12/2019 2:52 PM CDT Name: Leti Soto Date of : 1990 Today's Date: 02/12/2019 NST RESULTS ([facility]) OBJECTIVE FINDINGS , , , NST Indication(s): (s/p fall) Uterine Irritability: No Contractions: Not present OBJECTIVE FINDINGS Movement: Present Monitoring Mode: External Baseline: 135 BPM Variability: Moderate Decelerations: None Accelerations: Yes OTHER INFORMATION Jennifer Pop RN documented in this encounter Plan of Treatment Pending Results Name Type Priority Associated Diagnoses Date /Time US OB LIMITED Imaging Routine Status post fall 02/12/2019 4:52 PM CDT NONSTRESS TEST OB Routine 01/24 2:53 PM CDT Scheduled Orders Name Type Priority Associated Diagnoses Orde r Schedule GLUCOSE PROTEIN KETONE URINE - POINT OF CARE Point of Care Testing Routine Status post fall ONCE for 1 Occurrences starting 02/12/2019 until 02/12/2019 documented as of this encounter Procedures Procedure Name Priority Date/Time Associated Diagnosis Comments US OB LIMITED Routine 02/12/2019 4:52 PM CDT Status post fall NONSTRESS TEST Routine 02/12/2019 2:53 PM CDT documented in this encounter Visit Diagnoses Diagnosis Status post fall- Primary Unspecified fall Status post fall Unspecified fall documented in this encounter Care Teams Mortar Mixer Relationship Specialty Start Date End Date Malena Munoz MD PCP - General Family Medicine 01/12/16 04/03/19 documented as of this encounter
--- OUTSIDE RECORDS SUMMARY | 2024-10-07 02:46 | XMS_ITS | Encounter Summary ---
Author Organization [facility] Address [address] [place] [address] Care Team Providers Care Broke Man Name Role Phone Malena Munoz MD Primary Care Provider [phone] Reason for Visit * Reason Onset Date Comments Erroneous encounter-disregard 06/28/2016 Encounter Details Date Type Department Care Team (Late st Contact Info) Description 06/28/2016 Refill [facility] Medical [facility] - Family Medicine [address] [place] [address] [place] [address] [facility] [address] [place] [address] Erroneous encounter-disregard Social History Tobacco Use Types Packs/Day Years [...] on filedocumented in this encounter Care Teams Broke Man Relationship Specialty Start Date End Date Malena Munoz MD PCP - General Family Medicine 01/12/16 04/03/19 documented as of this encounter
--- OUTSIDE RECORDS SUMMARY | 2024-10-07 02:46 | XMS_ITS | Encounter Summary ---
Author Organization [facility] Address [address] [facility] [place] [address] Care Team Providers Care Scheduling Coordinator Name Role Phone Malena Munoz MD Primary Care Provider [phone] Reason for Visit * Reason Comments Weight Check Encounter Details Date Type Department Care Team (Late st Contact Info) Description 05/12/2017 10:20 AM CDT Office Visit [facility] - Family Medicine [address] [place] [id number] [place] [address] [facility] [address] [place] [address] Morbid obesity due to excess calories (HCC) (Primary Dx); BMI 45.0-49.9, adult (HCC); Leg cramps Social History Tobacco Use Types Packs/Day Years [...] Sign Reading Time Taken Comments Blood Pressure 134/86 05/12/2017 10:43 AM CDT Pulse 73 05/12/2017 10:43 AM CDT Temperature 36.8 ??C (98.2 ??F) 05/12/2017 10:33 AM C DT Respiratory Rate - - Oxygen Saturation 100% 05/12/2017 10:33 AM CDT Inhaled Oxygen Concentration - - Weight 123.4 kg (272 lb) 05/12/2017 10:33 AM CDT Height 166.4 cm (5' 5.5 ) 05/12/2017 10:33 AM CD T Body Mass Index 44.57 05/12/2017 10:33 AM CDT documented in this encounter Progress Notes * Blair Munoz-Waqas Jackman MD - 05/12/2017 10:55 AM CDT Follow Up Visit HPI: Leit Soto is a 26 y.o. female here for follow up on: Accompanied by: Tanya, friend At home weighed 270 lb, started out as 275 lb at home, Total weight loss: 5lb in 4 weeks Taking phentermine 15mg without problems and would like to increase dose Denies palpitation, chest pain, insomnia, shortness of breath Works 3-11pm sometimes and feels different later in the day sometimes (as if medication effect iswearing off) Phentermine has helped reduce emotional eating Doing the same with eating healthy and getting regular exercise. Did get compressive stocking Had decrease in cramps after wearing compressive stocking Review of Systems: Constitutional: No fatigue, fevers Psych: No changes in mood Cardiovascular: No chest pain, palpitations Respiratory: No cough, shortness of breath Gastrointestinal: No abdominal pain, nausea, vomiting, change in bowel habits Past Medical History: Diagnosis Date ??? NEGATIVE [...] 2008 ??? LASIK SURGERY Bilateral 11/2016 ??? [facility] Tooth Extraction Exam: BP 134/86 Pulse 73 Temp 98.2 ??F (Oral) Ht 1.664 m (5' 5.5 ) Wt 123.4 kg (272 lb) SpO2 100% BMI 44.57 kg/m2 GENERAL: Well groomed, well nourished, good hygiene, obese, no acute distress PSYCH: Alert & oriented, normal mood, affect, insight EYE: Conjunctiva normal bilaterally CARDIOVASCULAR: RRR without murmurs. Normal heart sounds. RESPIRATORY: Respirations unlabored. Clear bilaterally with normal air movement. No adventitious sounds. NEURO: Normal gait. Hearing intact to voice SKIN: warm and dry, no rashes Assessment & Plan: (E66.01) Morbid obesity due to excess calories (primary encounter diagnosis) Plan: Continue eating healthy and getting regular exercise. Increase phentermine to 37.5 daily. phentermine (ADIPEX-P) 37.5 MG capsule (Z68.42) BMI 45.0-49.9, adult Plan: See above. phentermine (ADIPEX-P) 37.5 MG capsule (R25.2) Leg cramps Plan: Continue compressive stocking. Continue adequate hydration. Return in about 4 weeks (around 06/09/2017) for f/u weight. Malena Munoz MD 05/12/2017 5:20 PM Health Maintenance Due Topic Date Due ??? INFLUENZA VACCINE (1) 05/26/2017 * Nida Negrete - 05/12/2017 10:33 AM CDT Leti Soto here to follow up weight. documented in this encounter Plan of Treatment Not on file documented as of this encounter Visit Diagnoses Diagnosis Morbid obesity due to excess calories (HCC)- Primary BMI 45.0-49.9, adult (HCC) Body Mass Index 45.0-49.9, adult Leg cramps Cramp of limb documented in this encounter Care Teams Scheduling Coordinator Relationship Specialty Start Date End Date Malena Munoz MD PCP - General Family Medicine 01/12/16 04/03/19 documented as of this encounter
--- OUTSIDE RECORDS SUMMARY | 2024-10-07 02:46 | XMS_ITS | Encounter Summary ---
Author Organization [facility] Address [address] [facility] [place] [address] Care Team Providers Care Goodwill Representative Name Role Phone Malena Munoz MD Primary Care Provider [phone] Malena Munoz MD Primary Care Provider [phone] Miladis Sosa PA-C Primary Care Provider [phone] Crystal Cedeno Primary Care Provider + Encounter Details Date Type Department Care Team (Late st Contact Info) Description 08/18/2015 Lab Requisition [facility] [address] [place] [id number] Unknown, Provider Social History Tobacco Use Types Packs/Day Years [...] Procedure Name Priority Date/Time Associated Diagnosis Comments VARICELLA ZOSTER ANTIBODY IGG Routine 08/18/2015 8:37 AM DIRECTOR OF DANCE HEPATITIS B SURFACE ANTIBODY Routine 08/18/2015 8:37 AM DIRECTOR OF DANCE documented in this encounter Results * VARICELLA ZOSTER ANTIBODY IGG (08/18/2015 8:37 AM DIRECTOR OF DANCE) Varicella zoster Virus Antibody IgG 326.7 IV 08/21/2015 1:31 AM DIRECTOR OF DANCE [facility] ([facility]) Comment: INTERPRETIVE INFORMATION: VZV Ab, IgG ??134 [...] Unknown Venipuncture / Unknown 08/18/2015 8:37 AM DIRECTOR OF DANCE 08/18/2015 7:11 PM DIRECTOR OF DANCE Provider Unknown LAB - CHEMISTRY ESPERANZA VELASCO [facility] ([facility]) [address] [place] [address], [facility] * HEPATITIS B SURFACE ANTIBODY (08/18/2015 8:37 AM DIRECTOR OF DANCE) HBsAb Non Reactive Non Reactive 08/18/2015 7:55 PM DIRECTOR OF DANCE [facility] Blood BLOOD SPECIMEN / Unknown Venipuncture / Unknown 08/18/2015 8:37 AM DIRECTOR OF DANCE 08/18/2015 7:11 PM DIRECTOR OF DANCE Provider Unknown LAB - CHEMISTRY ESPERANZA VELASCO [facility] [address] [place] [address] documented in this encounter Visit Diagnoses Not on filedocumented in this encounter Additional Health Concerns Infection Onset Date Last Indicated Resolved Time COVID-19 Under Investigation 06/29/2020 06/29/2020 06/30/2020 6:30 AM CDT COVID-19 Under Investigation 09/28/2020 09/28/2020 09/28/2020 10:48 PM DIRECTOR OF DANCE COVID-19 Confirmed 09/28/2020 09/28/2020 4:35 AM DIRECTOR OF DANCE documented as of this encounter Care Teams Goodwill Representative Relationship Specialty Start Date End Date Malena Munoz MD PCP - General Family Medicine 01/12/16 04/03/19 [place] [address] [place] [address] PCP - General 07/17/19 01/22/21 Miladis Sosa, PA-C [address] [place] [address] PCP - General Physician Rail Car Repairman 02/26/21 10/23/22 Crystal Cedeno [address] [place] [address] PCP - General Nurse Practitioner 10/24/22 documented as of this encounter
--- OUTSIDE RECORDS SUMMARY | 2024-10-07 02:46 | XMS_ITS | Encounter Summary ---
Author Organization [facility] Address [address] [place] [address] Care Team Providers Care Potato Seed Cutter Name Role Phone Malena Munoz MD Primary Care Provider [phone] Reason for Visit * Reason Onset Date Comments Refill Request 05/23/2018 Encounter Details Date Type Department Care Team (Late st Contact Info) Description 05/23/2018 Refill [facility] Medical [facility] - Family Medicine [address] [place] [phone] [place] [address] [facility] [address] [place] [address] Refill Request Social History Tobacco Use Types [...] encounter Miscellaneous Notes * Telephone Encounter - Korin Damian RN - 05/23/2018 9:08 AM CDT Refill request sent in 04/17/18 for Metoprolol. Sent to [facility] instead of [facility]. Refill request closed. Pharmacy has called. Last appt 08/31/17 Next appt: 06/29/18 [facility] Number of cancel or no shows in the last 12 months:2 Allergies have been reviewed. Correct pharmacy is populated. Please sign RX and close encounter. documented in this encounter Plan of Treatment Not on file documented as of this encounter Visit Diagnoses Diagnosis Mitral valve prolapse- Primary Mitral valve disorders documented in this encounter Care Teams Potato Seed Cutter Relationship Specialty Start Date End Date Malena Munoz MD PCP - General Family Medicine 01/12/16 04/03/19 documented as of this encounter
--- OUTSIDE RECORDS SUMMARY | 2024-10-07 02:46 | XMS_ITS | Encounter Summary ---
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 HPV vaccine Encounter Details Date Type Department Care Team (Latest Contact Info) Description 02/19/2016 10:20 AM CDT Office Visit [facility] - Family Medicine [address] [place] [phone] [place] [address] [facility] [address] [place] [phone] Well woman exam with routine gynecological exam (Primary Dx); Irregular periods/menstrual cycles; Situational anxiety; Morbid obesity due to excess calories (HCC); Need for HPV vaccine Social History Tobacco Use Types Packs/Day Years [...] Sign Reading Time Taken Comments Blood Pressure 127/76 02/19/2016 10:31 AM CDT Pulse 71 02/19/2016 10:31 AM CDT Temperature 36.7 ??C (98 ??F) 02/19/2016 10:31 AM CDT Respiratory Rate 20 02/19/2016 10:31 AM CDT Oxygen Saturation 100% 02/19/2016 10:31 AM CDT RA Inhaled Oxygen Concentration - - Weight 137.4 kg (303 lb) 02/19/2016 10:31 AM CDT Height 166.4 cm (5' 5.51 ) 02/19/2016 10:31 AM C DT Body Mass Index 49.64 02/19/2016 10:31 AM CDT documented in this encounter Patient Instructions * Patient Instructions* Malena Munoz MD - 02/19/2016 11:13 AM CDT Set up for MyChart documented in this encounter Progress Notes * Malena Munoz MD - 02/25/2016 5:45 PM CDTQuick Note: Left message for patient of negative result. Results letter sent, too. * Malena Munoz MD - 02/19/2016 10:54 AM CDT History & Physical HPI: Leti Soto is a 25 y.o. White/ female here today for Well Woman Exam. Accompanied by: self Reports lab work was done within the last year; will try to get records. Told was normal. 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 Menarche 10 Menses: Irregular even while on OCP; moderate flow with severe dysmenorrhea The current method of family planning is OCP (estrogen/progesterone) and not currently in a relationship, not sexually active. 0 Para 0 Family history of breast, uterine, ovarian, cervical cancer: paternal grandmother and 2 maternal great aunts with breast cancer Family history of colon cancer: none Health Maintenance: Calcium intake: adequate Exercise: 3 times a week Tobacco/Alcohol/Drug use: No/occasional mixed drink/No Social Support: Good Cholesterol screening: pending past records Diabetes screening: pending past records. Colon cancer screening: defer until age 50 Breast cancer screening: defer until age 50 Review of Systems: Constitutional: Denies fatigue, fevers, changes in weight Psych: Denies changes in mood Head: Denies headaches Eyes: Denies vision changes ENT: Denies nasal congestion/drainage, sinus pain or sore throat. Cardiovascular: Denies chest pain, palpitations Respiratory: Denies cough, shortness of breath Gastrointestinal: Denies abdominal pain, nausea, vomiting, change in bowel habits, black or bloody stools Genito-Urinary: Denies dysuria or hematuria Musculoskeletal: Right leg pain, right calf still bigger than left Neurological: Denies dizziness, numbness/tingling or weakness Skin: Denies skin lesions or rashes Past Medical History Diagnosis Date ??? NEGATIVE PAST MEDICAL HISTORY - SEE PROBLEM LIST Past Surgical History Procedure Laterality Date ??? Cholecystectomy, laparoscopic 2008 ??? Rillito tooth extraction Current Outpatient Prescriptions Medication ??? Melatonin 3 MG ??? metoprolol succinate XL 24hr (TOPROL XL) 50 MG tablet ??? norgestimate-ethinyl estradiol (SPRINTEC 28) 0.25-35 MG-MCG tablet No current facility-administered medications for this visit. Allergies Allergen Reactions ??? Penicillins Rash Family History Problem Relation Age of Onset ??? Depression Mother ??? Anxiety Disorder Mother ??? Hypertension Father ??? Diabetes Father ??? Depression Maternal Grandmother ??? Anxiety Disorder Maternal Grandmother agoraphobia ??? Diabetes Maternal Grandfather ??? Cancer Breast Paternal Grandmother ??? Heart Disease Father no [place] ??? Heart Disease Maternal Grandfather ??? Cancer Breast 2 maternal great aunts History Social History ??? Marital Status: Single [...] Social History Narrative Born and raised in [place] Lives at home with parents and a friend Exercise: 3 times a week Diet: 1600 calorie diet, 90 oz water daily Caffeine: maybe 1 cup coffee a day, 1-2 Diet soda a day; usually only when she's working Spirituality: Non-alevism Temple Exam: BP 127/76 mmHg Pulse 71 Temp(Src) 98 ??F (Oral) Resp 20 Wt 137.44 kg (303 lb) BMI 49.64 kg/m2 Wt Readings from Last 3 Encounters: 02/19/16 137.44 kg (303 lb) 01/12/16 133.358 kg (294 lb) GENERAL: Well groomed, well nourished, good hygiene, morbidly obese, no acute distress PSYCH: Alert & [...] normal air movement. No crackles or wheezes. BREASTS: normal in appearance, no suspicious masses, no skin or nipple changes or axillary nodes. ABDOMEN: Soft, non-tender, non-distended. No hepatosplenomegaly. Normal bowel sounds. No hernias appreciated. /RECTAL: Labia, external genitalia, perineum,and vagina normal without lesions; normal cervix; uterus and adenexae non-tender to palpation; exam limited by patient's body habitus; bladder normal size and non tender; urethral meatus normal without lesions MUSCULOSKELETAL: Right calf nontender and no erythema. Right calf: 61.5cm Left calf: 55.5cm NEURO: Normal gait. Hearing intact to voice. SKIN: warm and dry, no rashes or concerning moles Assessment & Plan: (Z01.419) Well woman exam with routine gynecological exam (primary encounter diagnosis) Plan: Doing well. Will try to get past records to see if she needs any other lab work. Continue eating healthy and regular exercise to lose weight. PAP SMEAR LB HPV HR (PO REF LAB) (N92.6) Irregular periods/menstrual cycles Plan: Continue Sprintec and see how she responds, if period becomes more regular. (F41.8) Situational anxiety Plan: Improved. (E66.01) Morbid obesity due to excess calories Plan: Stable. Continue healthy lifestyle to lose weight slowly. (Z23) Need for HPV vaccine Plan: HPV VACCINE, 4 VALENT, IM, PCHG IMMUNIZATION ADMINISTRATION ONE VACCINE Reassurance right leg pain is likely muscle discomfort after prolonged standing and being on her feet. Measurement of calf about the same as last time. Recommended shoes with good support, and may use ice and heat to sore muscle after work. Continued to take ibuprofen as needed. Return in about 3 months (around 05/21/2016) for f/u irregular period, anxiety. Malena Munoz MD 02/19/2016 8:15 PM Health Maintenance Due Topic Date Due ??? DYSLIPIDEMIA SCREENING Q5 YR 2010 ??? PAP SMEAR Q3 YR 12/16/2011 * Nida Negrete - 02/19/2016 10:37 AM CDT Leti Soto here for WWE. States right calf is bigger than left. Would like to have them measured again. documented in this encounter Plan of Treatment Not on file documented as of this encounter Procedures Procedure Name Priority Date/Time Associated Diagnosis Comments PAP LB HPV HR DNA Routine 02/19/2016 11: 33 AM CDT Well woman exam with routine gynecological exam documented in this encounter Results * PAP SMEAR LB HPV HR [...] Performed by [facility] ACCOUNT BILL Comment:Dodie Andrade, Rack Cleaner ([facility]) Comment . [facility] ACCOUNT BILL [...] Vial Resulting Agency Comment [facility] [address] [facility] ??[place] [id number] Malena Munoz MD LAB - PATHOLOGY/CYTO LOGY ORDERABLES [facility] ACCOUNT BILL [address] [place] [address] documented in this encounter Visit Diagnoses Diagnosis Well woman exam with routine gynecological exam- Primary Routine gynecological examination Irregular periods/menstrual cycles Irregular menstrual cycle Situational anxiety Other anxiety states Morbid obesity due to excess calories (HCC) Need for HPV vaccine Need for prophylactic vaccination and inoculation against other viral diseases documented in this encounter Care Teams Steam Shovel Oiler Relationship Specialty Start Date End Date Malena Munoz MD PCP - General Family Medicine 01/12/16 04/03/19 documented as of this encounter
--- OUTSIDE RECORDS SUMMARY | 2024-10-07 02:46 | XMS_ITS | Encounter Summary ---
Author Organization [facility] Address [address] [facility] [place] [address] Care Team Providers Care Restaurant Crew Person Name Role Phone Malena Munoz MD Primary Care Provider [phone] Reason for Visit * Reason Onset Date Comments Med Question 04/13/2017 Patient Requested Call 04/13/2017 Encounter Details Date Type Department Care Team (Late st Contact Info) Description 04/13/2017 Telephone [facility] Medical [facility] - Family Medicine [address] [place] [address] [place] [address] [address] [place] [phone] Med Question; Patient Requested Call Social History Tobacco Use Types Packs/Day Years [...] Telephone Encounter - Nida Negrete - 04/13/2017 1:28 PM CDT Called patient. Wants to confirm she is to take Phentermine 15 mg daily. Informed patient she should take the medication at the current dose and follow up with Dr. Munoz at next appointment. * Telephone Encounter - Justine Brandon - 04/13/2017 12:15 PM CDT Pt called in requesting a returned call to further discuss the dosage on the medication phentermine(IONAMINE) 15 MG capsule. documented in this encounter Plan of Treatment Not on file documented as of this encounter Visit Diagnoses Not on filedocumented in this encounter Care Teams Restaurant Crew Person Relationship Specialty Start Date End Date Malena Munoz MD PCP - General Family Medicine 01/12/16 04/03/19 documented as of this encounter
--- OUTSIDE RECORDS SUMMARY | 2024-10-07 02:46 | XMS_ITS | Encounter Summary ---
Author Organization [facility] Address [address] [facility] [place] [address] Care Team Providers Care Inventory Accountant Name Role Phone Malena Munoz MD Primary Care Provider [phone] Reason for Visit * Reason Comments Refill Request Encounter Details Date Type Department Care Team (Late st Contact Info) Description 01/14/2017 Refill [facility] - Family Medicine [address] [place] [address] [place] [address] [facility] [address] [place] [id number] Refill Request Social History Tobacco Use Types [...] Telephone Encounter - Carol Dodson RN - 01/16/2017 9:14 AM CDT Requested Prescriptions Pending Prescriptions Disp Refills ??? norgestimate-ethinyl estradiol (MONONESSA) 0.25-35 MG-MCG tablet [Pharmacy Med Name: MONONESSA TABLETS 28S] 28 Tab 3 Sig: Take 1 Tab by mouth once daily Last appt: 10/31/16 Next appt: none Number of cancel or no shows in the last 12 months: 1 Allergies have been reviewed. Correct pharmacy is populated. Please sign RX and close encounter. documented in this encounter Plan of Treatment Not on file documented as of this encounter Visit Diagnoses Not on filedocumented in this encounter Care Teams Inventory Accountant Relationship Specialty Start Date End Date Malena Munoz MD PCP - General Family Medicine 01/12/16 04/03/19 documented as of this encounter
--- OUTSIDE RECORDS SUMMARY | 2024-10-07 02:46 | XMS_ITS | Encounter Summary ---
Author Organization [facility] Address [address] [place] [address] Care Team Providers Care Karate Instructor Name Role Phone Malena Munoz MD Primary Care Provider [phone] Reason for Visit * Reason Comments Refill Request Encounter Details Date Type Department Care Team (Late st Contact Info) Description 08/14/2018 Refill [facility] - Family Medicine [address] [place] [address] [place] [address] [facility] [address] [place] [phone] Refill Request Social History Tobacco Use Types [...] Telephone Encounter - Kirsten Gurrola RN - 08/20/2018 4:05 PM FIRE DISPATCHER Requested medications filled at visit on 08/15 DISPATCHER documented in this encounter Plan of Treatment Not on file documented as of this encounter Visit Diagnoses Not on filedocumented in this encounter Care Teams Karate Instructor Relationship Specialty Start Date End Date Malena Munoz MD PCP - General Family Medicine 01/12/16 04/03/19 documented as of this encounter
--- OUTSIDE RECORDS SUMMARY | 2024-10-07 02:47 | XMS_ITS | Encounter Summary ---
Author Organization [facility] Address [address] [place] [address]. [place], [place] [address] [place] [address] Care Team Providers Care Software Quality Assurance Specialist Name Role Phone Crystal Cedeno Primary Care Provider [phone] Encounter Details Date Type Department Care Team (Late st Contact Info) Description 10/31/2022 [place] Message Enc [facility] Medical Group Family and Sports Medicine - [place] [address] [place] [address] Crystal Cedeno APNP [address] [place] [address] [phone] Fax Social History Tobacco Use Types Packs/Day Years Used Date Smoking Tobacco: Never Smokeless Tobacco: Never Comments:non smoker Alcohol Use Standard Drinks/Week Comments Yes 1 (1 standard drink = 0.6 oz pur e alcohol) social PHQ-2 Answer Date Recorded PHQ-2 Score - If the patient scores above 3, please move on to questions 3-9 0 04/18/2022 Comments No Sex and Gender Information Value Date Recorded Sex Assigned at Not on file Legal Sex Female 5:13 PM CDT Gender Identity Female 02/07/2022 6:15 AM CDT Sexual Orientation Bisexual 02/07/2022 6: 15 AM CDT COVID-19 Exposure Response Date Recorded In the last 10 days, have yo u been in contact with someone who was confirmed or suspected to have Coronavirus/COVID-19? No / Unsure 10/26/2022 8:19 AM TUBE CUTTER documented as of this encounter Progress Notes * Paty Hernandez CMA - 11/07/2022 11:46 AM CSTFrom: Leti Soto Sent: 11/05/2022 1:28 PM TUBE CUTTER To: Crystal Varela Nurse Subject: Fax I really don't know why they aren't receiving the pages. They both need to be faxed to [phone]. CUTTER documented in this encounter Plan of Treatment Not on file documented as of this encounter Visit Diagnoses Not on filedocumented in this encounter Additional Health Concerns Assessment Noted Time PHQ-9 Depression Total Score: 15 022 10:50 AM CDT documented as of this encounter Care Teams Software Quality Assurance Specialist Relationship Specialty Start Date End Date Crystal Cedeno APNP [address] [place] [address] PCP - General NURSE PRACTITIONER 01/05/22 documented as of this encounter
--- OUTSIDE RECORDS SUMMARY | 2024-10-07 02:47 | XMS_ITS | Encounter Summary ---
Author Organization [facility] Address [address] [place] [address]. [place] [id number] Care Team Providers Care Splitting Machine Tender Name Role Phone Crystal Cedeno Primary Care Provider [phone] Encounter Details Date Type Department Care Team (Latest Contact Info) Description 10/26/2022 Scan [facility] INFO SRVCS Scanned, Doc Med Group Social History Tobacco Use Types Packs/Day Years [...] Coronavirus/COVID-19? No / Unsure 10/26/2022 8:19 AM STATISTICAL CONSULTANT documented as of this encounter Plan of Treatment Not on file documented as of this encounter Visit Diagnoses Not on filedocumented in this encounter Additional Health Concerns Assessment Noted Time PHQ-9 Depression Total Score: 15 022 10:50 AM CDT documented as of this encounter Care Teams Splitting Machine Tender Relationship Specialty Start Date End Date Crystal Cedeno APNP [address] [place] [address] PCP - General NURSE PRACTITIONER 01/05/22 documented as of this encounter
--- OUTSIDE RECORDS SUMMARY | 2024-10-07 02:47 | XMS_ITS | Encounter Summary ---
Author Organization [facility] Address [address] [place] [address]. [place], [place] [address] [place] [address] Care Team Providers Care Plumber Name Role Phone Crystal Cedeno Primary Care Provider [phone] Encounter Details Date Type Department Care Team (Late st Contact Info) Description 11/24/2022 [employer] Message Enc [facility] Medical Group Family and Sports Medicine - [place] [address] [place] [address] Crystal Cedeno APNP [address] [place] [address] My eye Social History Tobacco Use Types Packs/Day Years [...] Coronavirus/COVID-19? No / Unsure 10/26/2022 8:19 AM DEHYDROGENATION OPERATOR HEAD documented as of this encounter Progress Notes * DODIE Bal - 11/24/2022 8:11 PM CSTFrom: Leti Soto To: Crystal Cedeno Sent: 11/24/2022 9:46 AM DEHYDROGENATION OPERATOR HEAD Subject: My eye Hello there, So this morning my very wild child was jumping around and fell onto me while laying on the ground. A couple of her fingers jammed into my left eye. There was a little pain but not bad at first. Now it???s been about 45mins and it???s throbbing all around my eye, my jaw, and forehead and down my neck. My vision i s also a little bit blurry in that eye as well. When I bend over there???s a lotttt of pressure as well. Not sure what to do. I???ve taken meds, applied ice, with no real relief. Thanks -Yesenia DROGENATION OPERATOR HEAD documented in this encounter Plan of Treatment Not on file documented as of this encounter Visit Diagnoses Diagnosis Abrasion of left cornea, initial encounter- Primary documented in this encounter Additional Health Concerns Assessment Noted Time PHQ-9 Depression Total Score: 15 022 10:50 AM CDT documented as of this encounter Care Teams Plumber Relationship Specialty Start Date End Date Crystal Cedeno APNP [address] [place] [address] PCP - General NURSE PRACTITIONER 01/05/22 documented as of this encounter
--- OUTSIDE RECORDS SUMMARY | 2024-10-07 02:47 | XMS_ITS | Encounter Summary ---
Author Organization [facility] Address [address] [place] [address]. [place], [place] [address] [place] [address] Care Team Providers Care Explosive Operator Supervisor Name Role Phone Crystal Cedeno Primary Care Provider [phone] Encounter Details Date Type Department Care Team (Late st Contact Info) Description 11/26/2022 Thrill [place] Message Enc [facility] Medical Group Family and Sports Medicine - [place] [address] [place] [address] Crystal Cedeno APNP [address] [place] [address] Cancel appointment Social History Tobacco Use Types Packs/Day Years [...] Orientation Bisexual 02/07/2022 6: 15 AM CDT documented as of this encounter Plan of Treatment Not on file documented as of this encounter Visit Diagnoses Not on filedocumented in this encounter Additional Health Concerns Assessment Noted Time PHQ-9 Depression Total Score: 15 022 10:50 AM CDT documented as of this encounter Care Teams Explosive Operator Supervisor Relationship Specialty Start Date End Date Crystal Cedeno APNP [address] [place] [address] PCP - General NURSE PRACTITIONER 01/05/22 documented as of this encounter
--- OUTSIDE RECORDS SUMMARY | 2024-10-07 02:47 | XMS_ITS | Encounter Summary ---
Author Organization [facility] Address [address] [place] [address]. [place], [place] [address] [place] [address] Care Team Providers Care Load Checker Name Role Phone Crystal Cedeno Primary Care Provider [phone] Encounter Details Date Type Department Care Team (Latest Contact Info) Description 06/02/2023 Scan [facility] HE[facility] INFO SRVCS Scanned, Doc [...] documented as of this encounter Care Teams Load Checker Relationship Specialty Start Date End Date Crystal Cedeno APNP [address] [place] [address] PCP - General NURSE PRACTITIONER 01/05/22 documented as of this encounter
--- OUTSIDE RECORDS SUMMARY | 2024-10-07 02:47 | XMS_ITS | Encounter Summary ---
Author Organization [facility] Address [address] [place] [address]. [place], [place] [address] [place] [address] Care Team Providers Care Line Installation Supervisor Name Role Phone Crystal Cedeno Primary Care Provider [phone] Encounter Details Date Type Department Care Team (Latest Contact Info) Description 10/26/2022 Travel Social History Tobacco Use Types Packs/Day [...] Coronavirus/COVID-19? No / Unsure 10/26/2022 8:19 AM TILE MECHANIC HELPER documented as of this encounter Plan of Treatment Not on file documented as of this encounter Visit Diagnoses Not on filedocumented in this encounter Additional Health Concerns Assessment Noted Time PHQ-9 Depression Total Score: 15 022 10:50 AM CDT documented as of this encounter Care Teams Line Installation Supervisor Relationship Specialty Start Date End Date Crystal Cedeno APNP [address] [place] [address] PCP - General NURSE PRACTITIONER 01/05/22 documented as of this encounter
--- OUTSIDE RECORDS SUMMARY | 2024-10-07 02:47 | XMS_ITS | Encounter Summary ---
Author Organization [facility] Address [address] [place] [address]. [place], [place] [address] [place] [address] Care Team Providers Care Vp Of Product Name Role Phone Crystal Cedeno Primary Care Provider [phone] Encounter Details Date Type Department Care Team (Late st Contact Info) Description 11/07/2022 Kipptt Message Enc [facility] Medical Group Family and Sports Medicine - [place] [address] [place] [address] Crystal Cedeno APNP [address] [place] [address] [phone] Prior auth Social History Tobacco Use Types Packs/Day Years [...] Coronavirus/COVID-19? No / Unsure 10/26/2022 8:19 AM COMPUTER HELP DESK SPECIALIST documented as of this encounter Plan of Treatment Not on file documented as of this encounter Visit Diagnoses Not on filedocumented in this encounter Additional Health Concerns Assessment Noted Time PHQ-9 Depression Total Score: 15 022 10:50 AM CDT documented as of this encounter Care Teams Vp Of Product Relationship Specialty Start Date End Date Crystal Cedeno APNP [address] [place], [place] [phone] PCP - General NURSE PRACTITIONER 01/05/22 documented as of this encounter
--- OUTSIDE RECORDS SUMMARY | 2024-10-07 02:47 | XMS_ITS | Clinical Summary ---
Author Organization [facility] Address [address] [place] [address]. [place], [place] [address] [place] [address] Care Team Providers Care Kiosk Sales Representative Name Role Phone Crystal Cedeno Primary Care Provider [phone] Allergies Active Allergy Reactions Criticality Noted Date Comments Penicillins Rash,Unknown Low 04/04/2014 Tramadol Other (see comment) Medium 03/22/2017 Shaky, increased heart rate, sweating. Medications Levonorgestrel (MIRENA, 52 MG, IU) Active semaglutide-weig ht management (WEGOVY) 0.5 mg/dose injection (PEN)Indications :Class 3 severe obesity due to excess calories without serious comorbidity with body mass index (BMI) of 50.0 to 59.9 in adult ([facility]) Inject 0.5 mg into the skin once a week. 2 mL 1 10/26/2022 Active buPROPion XL (WELLBUTRIN XL) 300 MG 24 hr tabletIndication s:Moderate episode of recurrent major depressive disorder ([facility]) TAKE 1 TABLET(300 MG) BY MOUTH DAILY 90 tablet 3 06/22/2023 Active FLUoxetine (PROZAC) 20 MG capsuleIndicatio ns:Anxiety and depression TAKE 3 CAPSULES(60 MG) BY MOUTH DAILY 30 capsule 02/20/2024 Active Active Problems Problem Noted Date Diagnosed Date Anxiety and depression 07/02/2020 BMI 40.0-44.9, adult ([facility]) 6 Irregular periods/menstrual cycles 01/12/2016 Psychophysiological insomnia 01/12/2016 Situational anxiety 01/12/2016 Super obese 04/04/2014 Resolved Problems Problem Noted Date Diagnosed Date Resolved Date Status post fall 02/12/2019 02/09/2022 Nausea/vomiting in ([facility]) 11/26/2018 02/09/2022 Examination, physical, employee 09/14/2015 06/05/2020 URTI (acute upper respiratory infection) 09/14/2015 02/09/2022 Sore throat 09/09/2015 02/09/2022 Benign essential hypertension 07/11/2014 02/09/2022 Mitral valve prolapse 04/04/20142021 Overview (02/09/2021): Dx in 2013; had palpitations. Started on metoprolol in 2013 and symptoms resolved. Never had hypertension. 01/21/2018: normal echo Dx in 2013; had palpitations. Started on metoprolol in 2013 and symptoms resolved. Never had hypertension. 01/21/2018: normal echo Immunizations Name Administration Dates Next Due Dt (1-<7 Y.O.) 12/31/2004 Dtp 05/26/1992,08/10/1991,05/15/1991 ,02/27/1991 Dtp (Generic) 06/03/1995, 2,08/10/1991,05/15/1991,01/1991 HPV 08/02/2016,02/19/2016,01/12/2016 Hepatitis A 06/17/2013 Hepatitis B (Generic: Adult) 04/29/1996,07/13/19 95,05/30/1995 Hib 05/26/1992,08/10/1991,05/15/1991 ,02/27/1991 Hib Vaccine, Prp-Omp 05/26/1992,08/10/1991,05/15,02/27/1991 Influenza (Generic) 06/25/2018,06/25/2016,2013,06/17/2013 Influenza Adult (Generic) 07/18/2019,06/07/2017, 05/11/2014 MMR 06/17/2013,06/26/1996,05/26/1992 MMR (Generic) 06/26/1996,05/26/1992 MMR (MMRII) 06/17/2013,06/26/1996,05/26/1992 Meningococcal (Generic) 06/17/2013 Opv 06/03/1995,05/26/1992,05/15/1991 ,02/27/1991 Tdap (Generic) 03/29/2019,08/13/2015 Varicella Vaccine 07/08/2013 Family History Medical History Relation Comments Depression Father Diabetes Father Heart Disease Father Diabetes Maternal Grandfather Kidney Disease Maternal Grandfather Depression Maternal Grandmother Diabetes Maternal Grandmother Lung Disease Maternal Grandmother Mental Health Maternal Grandmother Agoraphobia Anxiety Mother Arthritis Mother Depression Mother Osteoarthritis Mother COPD Paternal Grandfather Diabetes Paternal Grandfather Heart Disease Paternal Grandfather Hypertension Paternal Grandfather Cancer Paternal Grandmother from c ancer related. Relation Status Comments Father Alive Maternal Grandfather Maternal Grandmother Mother Alive Paternal Grandfather Alive Paternal Grandmother Social History Tobacco Use Types Packs/Day Years Used Date Smoking Tobacco: Never Smokeless Tobacco: Never Tobacco Cessation:Counseling Given: No Comments:non smoker Alcohol Use Standard Drinks/Week Comments [...] Orientation Bisexual 02/07/2022 6: 15 AM CDT Last Filed Vital Signs Vital Sign Reading Time Taken Comments Blood Pressure 126/84 10/26/2022 9:07 AM PRINT COLOR MATCHER Pulse 83 10/26/2022 9:07 AM PRINT COLOR MATCHER Temperature 36.6 ??C (97.8 ??F) 10/26/2022 9:07 AM CS T Respiratory Rate 19 10/26/2022 9:07 AM PRINT COLOR MATCHER Oxygen Saturation 100% 10/26/2022 9:07 AM PRINT COLOR MATCHER Inhaled Oxygen Concentration - - Weight 155.6 kg (343 lb) 10/26/2022 9:07 AM PRINT COLOR MATCHER Height 167.6 cm (5' 6 ) 10/26/2022 9:07 AM PRINT COLOR MATCHER Body Mass Index 55.36 10/26/2022 9:07 AM PRINT COLOR MATCHER Plan of Treatment Health Maintenance Due Date Last Done Comments Cervical Cancer Screening Pap Smear (Age 30 to 64) Every 3 Years 1990 Annual Physical 01/05/2023 01/05/2022 COVID-19 Vaccine ( season) 2024 05/01/2021, 12/10/2020, 09/20/2020 Influenza Adult (#1) 2024 07/18/2019, 06/25/2018, 06/07/2017, Additional history exists Cervical Cancer Screening Pap with HPV Testing (Age 30 to 64) Every 5 Years 02/09/2026 02/09/2021 Cervical Cancer Screening with HPV 02/09/2026 DTaP, Tdap and Td Vaccines (8 - Td or Tdap) 03/29/2029 03/29/2019, 08/13/2015, 12/31/2004, Additional history exists Hepatitis B Vaccines Completed 04/29/1996, 07/13/1995, 05/30/1995 Meningococcal Vaccine Aged Out 06/17/2013 No padmini caty eligible based on patient's age to complete this topic HPV Vaccines Completed 08/02/2016, 01/24, 01/12/2016 Hepatitis C Completed 01/05/2022 Pneumococcal Vaccine: Pediatrics (0 to 5 Years) and At-Risk Patients (6 to 64 Years) Aged Out No longer eligible based on patient's age to complete this topic RSV Immunizations Under 20 Months Aged Out No longer eligible based on patient's age to complete this topic Procedures Procedure Name Priority Date/Time Associated Diagnosis Comments HEPATITIS C ANTIBODY Routine 01/05/2022 9:47 AM CDT Need for hepatitis C screening test OUTSIDE CYTOPATH CERV/VAG INTERPRET (PAP) 02/09/2021 from Last 3 Months or Most Recently Relevant to Health Maintenance Results * HEPATITIS C ANTIBODY (01/05/2022 9:47 AM CDT) HEPATITIS C AB NON-REACTI VE NON-REACT GUILLERMO 01/05/2022 7:15 PM CDT [facility] Comment: ANTIBODIES TO HCV NOT DETECTED. DOES NOT EXCLUDE THE POSSIBILITY OF EXPOSURE TO HCV. 01/05/2022 9:47 AM CDT Crystal [facility] Final Result [facility] [address] [place] [address], [place] [phone] [id number] * PAP SMEAR WITH HPV (02/09/2021) 02/09/2021 Narrative 02/09/2021 Ordered by an unspecified provider. us Documents Scanned SCANNING Final Result from Last 3 Months or Most Recently Relevant to Health Maintenance Insurance [employer] Care Teams Kiosk Sales Representative Relationship Specialty Start Date End Date Crystal Cedeno APNP [address] [place] [address] PCP - General NURSE PRACTITIONER 01/05/22
--- OUTSIDE RECORDS SUMMARY | 2024-10-07 02:47 | XMS_ITS | Encounter Summary ---
Author Organization [facility] Address [address] [place] [address]. [place], [place] [address] [place] [address] Care Team Providers Care Ordnance Engineer Name Role Phone Crystal Cedeno Primary Care Provider [phone] Encounter Details Date Type Department Care Team (Late st Contact Info) Description 11/01/2023 BizGreet Message Enc [facility] Medical Group Family and Sports Medicine - [place] [address] [place] [address] [facility] Schedule Appointment: Annual Physical Social History Tobacco Use Types Packs/Day Years [...] documented as of this encounter Care Teams Ordnance Engineer Relationship Specialty Start Date End Date Crystal Cedeno APNP [address] [place] [address] PCP - General NURSE PRACTITIONER 01/05/22 documented as of this encounter
--- OUTSIDE RECORDS SUMMARY | 2024-10-07 02:48 | XMS_ITS | Encounter Summary ---
Author Organization [facility] Address [address] [place] [address]. [place], [place] [address] [place] [address] Care Team Providers Care Contract Agent Name Role Phone Crystal Cedeno Primary Care Provider [phone] Encounter Details Date Type Department Care Team (Latest Contact Info) Description 05/25/2022 Travel Social History Tobacco Use Types Packs/Day [...] suspected to have Coronavirus/COVID-19? No / Unsure 05/25/2022 1:42 PM CDT documented as of this encounter Plan of Treatment Not on file documented as of this encounter Visit Diagnoses Not on filedocumented in this encounter Additional Health Concerns Assessment Noted Time PHQ-9 Depression Total Score: 15 022 10:50 AM CDT documented as of this encounter Care Teams Contract Agent Relationship Specialty Start Date End Date Crystal Cedeno APNP [address] [place] [address] PCP - General NURSE PRACTITIONER 01/05/22 documented as of this encounter
--- OUTSIDE RECORDS SUMMARY | 2024-10-07 02:48 | XMS_ITS | Encounter Summary ---
Author Organization [facility] Address [address] [place] [address]. [place], [place] [address] [place] [address] Care Team Providers Care Addiction Social Worker Name Role Phone Crystal Cedeno Primary Care Provider [phone] Encounter Details Date Type Department Care Team (Late st Contact Info) Description 06/01/2022 MyCZoomSafert Message Enc [facility] Medical Group Orthopedic & Sports Medicine - [place] [address] [place], [place] [address] [phone] Arnel Long MD [address] [place], [place] [address] Disability paperwork Social History Tobacco Use Types Packs/Day Years [...] documented as of this encounter Care Teams Addiction Social Worker Relationship Specialty Start Date End Date Crystal Cedeno APNP [address] [place], [place] [phone] PCP - General NURSE PRACTITIONER 01/05/22 documented as of this encounter
--- OUTSIDE RECORDS SUMMARY | 2024-10-07 02:48 | XMS_ITS | Encounter Summary ---
Author Organization [facility] Address [address] [place] [address]. [place], [place] [address] [place] [address] Care Team Providers Care Manager Community Development Name Role Phone Crystal Cedeno Primary Care Provider [phone] Encounter Details Date Type Department Care Team (Latest Contact Info) Description 08/24/2022 Travel Social History Tobacco Use Types Packs/Day [...] suspected to have Coronavirus/COVID-19? No / Unsure 08/24/2022 8:13 AM TENNIS CAMP INSTRUCTOR documented as of this encounter Plan of Treatment Not on file documented as of this encounter Visit Diagnoses Not on filedocumented in this encounter Additional Health Concerns Assessment Noted Time PHQ-9 Depression Total Score: 15 022 10:50 AM CDT documented as of this encounter Care Teams Manager Community Development Relationship Specialty Start Date End Date Crystal Cedeno APNP [address] [place] [address] PCP - General NURSE PRACTITIONER 01/05/22 documented as of this encounter
--- OUTSIDE RECORDS SUMMARY | 2024-10-07 02:48 | XMS_ITS | Encounter Summary ---
Author Organization [facility] Address [address] [place] [address]. [place], [place] [address] [place] [address] Care Team Providers Care Horse Race Timer Name Role Phone Crystal Cedeno Primary Care Provider +[phone] Reason for Visit * Reason Comments Annual focusing issues, wel lbutrin in the past helped with focusing and over eating New Patient est care Encounter Details Date Type Department Care Team (Late st Contact Info) Description 01/05/2022 9:00 AM CDT Office Visit [facility] Family and Sports Medicine - [place] [address] [place] [address] Crystal Cedeno APNP [address] [place] [address] Annual (focusing issues, wellbutrin in the past helped with focusing and over eating ); New Patient (est care ) Social History Tobacco Use Types Packs/Day Years Used Date Smoking Tobacco: Never Smokeless Tobacco: Never Tobacco Cessation:Counseling Given: No Alcohol Use Standard Drinks/Week Comments Yes 0 (1 standard drink = 0.6 oz pur e alcohol) PHQ-2 Answer Date Recorded PHQ-2 Score - If the patient scores above 3, please move on to questions 3-9 3 01/05/2022 Comments No Sex and Gender Information Value [...] suspected to have Coronavirus/COVID-19? No / Unsure 01/05/2022 8:50 AM CDT documented as of this encounter Last Filed Vital Signs Vital Sign Reading Time Taken Comments Blood Pressure 118/80 01/05/2022 8:51 AM CDT Pulse 69 01/05/2022 8:51 AM CDT Temperature 36.3 ??C (97.3 ??F) 01/05/2022 8:51 AM CD T Respiratory Rate 18 01/05/2022 8:51 AM CDT Oxygen Saturation 99% 01/05/2022 8:51 AM CDT Inhaled Oxygen Concentration - - Weight 134.7 kg (297 lb) 01/05/2022 8:51 AM CDT Height 167.6 cm (5' 6 ) 01/05/2022 8:51 AM CDT Body Mass Index 47.94 01/05/2022 8:51 AM CDT documented in this encounter Progress Notes * DODIE Liz - 01/05/2022 9:00 AM CDT Images from the original note were not included. Office Note Reason for Visit: Annual (focusing issues, wellbutrin in the past helped with focusing and over eating ) and New Patient ([facility] care ) History of Present Illness: Here as a new patient for yearly health maintenance visit. Was previously a patient of Dr. Beal. Patient is transferring as she lives closer to this office. Labs- Overdue Hep C screening- Overdue Tommy-Due at age 40 Pap- IUD out of place on recent CT scan, Pt will make appt with Dr. Mar and we will fax CT report. LMP- Occasional periods, 11/08/21 Flu shot- Completed in Fall. Tdap- Completed in 2019 COVID vaccine- Completed [facility]. Colon screen- Denies blood or changes in stool. Due at age 50. Dental- Up to date. Vision- Up to date, pt had lasik surgery in 2016 Bone density- Due at age 65. Reviewed Family History. PHQ and RONA scores have been reviewed with patient. Anxiety/Depression/ADD- focusing issues, wellbutrin in the past helped with focusing and over eating. Patient reports that her weight has been a problem for most of her life. Patient completed PHQ, RONA and ADHD screenings and all results are positive. Discussed several medications with patient and will start with Vyvanse. PHQ-9: Over the last two weeks, how often have you been bothered by any of the following problems? 06/17/2021 11/22/2021 LITTLE INTEREST OR PLEASURE IN DOING THINGS 0-Not at All 0-Not at All FEELING DOWN, DEPRESSSED,OR HOPELESS 1-Several Days 0-Not at All PHQ2 DEPRESSION TOTAL SCORE 1 0 TROUBLE FALLING OR STAYING ASLEEP OR SLEEPING TOO MUCH - 0-Not at All FEELING TIRED OR HAVING LITTLE ENERGY - 0-Not at All POOR APPETITE OR OVEREATING - 0-Not at All FEELING BAD ABOUT YOURSELF - 0-Not at All TROUBLE CONCENTRATING ON THINGS - 0-Not at All MOVING OR SPEAKING SO SLOWLY THAT OTHER PEOPLE COULD HAVE NOTICED - 0-Not at All THOUGHTS THAT YOU WOULD BE BETTER OFF - 0-Not at All DEPRESSION SCREENING TOTAL SCORE 1 0 IF YOU CHECKED OFF ANY PROBLEMS - Not difficult at all RONA-7 (Generalized Anxiety Disorder) Screening No flowsheet data found. ROS: Review of Systems Constitutional: Negative for chills and fever. HENT: Negative for ear pain and sore throat. Respiratory: Negative for cough, shortness of breath and wheezing. Cardiovascular: Negative for chest pain and palpitations. Gastrointestinal: Negative for blood in stool, constipation, diarrhea, nausea and vomiting. Genitourinary: Negative for dysuria. Musculoskeletal: Negative for myalgias. Neurological: Negative for focal weakness, weakness and headaches. Psychiatric/Behavioral: Positive for depression. Negative for suicidal ideas. The patient is nervous/anxious. Poor focus Medications: Current Outpatient Medications: ??? FLUoxetine 20 MG capsule, Take 60 mg by mouth daily. , Disp: , Rfl: ??? Levonorgestrel (MIRENA, 52 MG, IU), , Disp: , Rfl: ??? lisdexamfetamine (VYVANSE) 40 MG capsule, Take 1 capsule (40 mg total) by mouth every morning.,Disp: 30 capsule, Rfl: 0 Allergies: Allergies Allergen Reactions ??? Tramadol Other (see comment) Shaky, increased heart rate, sweating. ??? Penicillins Rash and Unknown Medical History: Past Medical History: Diagnosis Date ??? Anxiety ??? Depression Surgical History: Past Surgical History: Procedure Laterality Date ??? CHOLECYSTECTOMY ??? EYE SURGERY Lasic Social History: Social History Socioeconomic History ??? Marital status: Single Spouse name: Not on file ??? Number of children: Not on file ??? Years of education: Not on file ??? Highest education level: Not on file Occupational History ??? Not on file Tobacco Use ??? Smoking status: Never Smoker ??? Smokeless tobacco: Never Used Vaping Use ??? Vaping Use: Never used Substance and Sexual Activity ??? Alcohol use: Yes ??? Drug use: Never ??? Sexual activity: Yes control/protection: I.U.D. Other Topics Concern ??? Not on file Social History Narrative ??? Not on file Social Determinants of Health Financial Resource Strain: Not on file Food Insecurity: Not on file Transportation Needs: Not on file Physical Activity: Not on file Stress: Not on file Social Connections: Not on file Intimate Partner Violence: Not on file Family History: Family History Problem Relation Name Age of Onset ??? Anxiety Mother ??? Osteoarthritis Mother ??? Diabetes Father ??? Heart Disease Father ??? Lung Disease Maternal Grandmother ??? Diabetes Maternal Grandmother ??? Diabetes Maternal Grandfather ??? Diabetes Paternal Grandfather ??? Heart Disease Paternal Grandfather PE: Physical Exam Vitals and nursing note reviewed. HENT: Head: Normocephalic and atraumatic. Right Ear: External ear normal. Left Ear: External ear normal. Eyes: Pupils: Pupils are equal, round, and reactive to light. Neck: Trachea: No tracheal deviation. Cardiovascular: Rate and Rhythm: Normal rate and regular rhythm. Heart sounds: Normal heart sounds. Pulmonary: Effort: Pulmonary effort is normal. No respiratory distress. Breath sounds: Normal breath sounds. No wheezing. Abdominal: General: Bowel sounds are normal. There is no distension. Palpations: Abdomen is soft. Tenderness: There is no abdominal tenderness. Comments: Overweight Musculoskeletal: General: Normal range of motion. Lymphadenopathy: Cervical: No cervical adenopathy. Skin: General: Skin is warm and dry. Findings: No rash. Neurological: Mental Status: She is alert and oriented to person, place, and time. Cranial Nerves: No cranial nerve deficit. Gait: Gait is intact. Psychiatric: Mood and Affect: Mood and affect normal. Cognition and Memory: Memory normal. Judgment: Judgment normal. Filed Vitals: 01/05/22 0851 BP: 118/80 Pulse: 69 Resp: 18 Temp: 97.3 ??F (36.3 ??C) TempSrc: Temporal SpO2: 99% Weight: 134.7 kg (297 lb) Height: 5' 6 (1.676 m) Body mass index is 47.94 kg/m??. Diagnoses/Plan: 1. Healthcare maintenance FOLIC ACID SERUM VITAMIN B-12 VITAMIN D, 25 OH TSH W/REFLEX LIPID PANEL COMPREHENSIVE METABOLIC PANEL CBC W/DIFF AUTOMATED HEMOGLOBIN, GLYCOSYLATED BRIEF EMOTIONAL/BEHAVIORAL ASSESSMENT 2. Screening for hyperlipidemia LIPID PANEL 3. Screening for diabetes mellitus (DM) COMPREHENSIVE METABOLIC PANEL HEMOGLOBIN, GLYCOSYLATED 4. Screening for thyroid disorder TSH W/REFLEX 5. Need for hepatitis C screening test HEPATITIS C ANTIBODY 6. Attention deficit hyperactivity disorder (ADHD), combined type lisdexamfetamine (VYVANSE) 40 MG capsule Medications Discontinued During This Encounter Medication Reason ??? diclofenac EC 75 MG tablet Therapy completed Discussion: Patient to start Vyvanse 40 mg daily to help with focus and overeating. Patient to continue healthydiet and walk for exercise. Follow-up in 1 month. Lab work has been ordered for you today. We will call you with the results Try to increase diet with lots of fresh fruits, vegetables, and lean meats Try to increase unsaturated fats that are liquid at room temperature such olive oil or avocado oil.Try to limit saturated fats and avoid trans fats Try to get at least 30 minutes of cardio exercise at least 5 days a week with intermittent strength/resistance training Drink plenty of water DODIE LIZ 01/05/2022 documented in this encounter Plan of Treatment Scheduled Orders Name Type Priority Associated Diagnoses Orde r Schedule BRIEF EMOTIONAL/BEHAVIORAL ASSESSMENT Procedures Routine Healthcare maintenance Ordered: 01/05/2022 documented as of this encounter Results * HEMOGLOBIN, GLYCOSYLATED (01/05/2022 9:47 AM CDT) HGB A1C 5.1 3.80 - 5.60 % 01/05/2022 4:30 PM CDT [facility] ESTIMATED AVG GLUCOSE 100 74 - 106 MG/DL 01/05/2022 4:30 PM CDT [facility] 01/05/2022 9:47 AM CDT Crystal Cedeno [facility] Final Result [facility] [address] [place] [address], * (ABNORMAL) CBC W/DIFF AUTOMATED (01/05/2022 9:47 AM CDT) WBC 4.8 4.0 - 10.8 x10'3/uL 01/05/2022 2:47 PM CDT [facility] RBC 3.80(L) 4.10 - 5.40 x10'6/uL 01/05/2022 2:47 PM CDT [facility] HGB 11.8(L) 12.0 - 16.0 G/DL 01/05/2022 2:47 PM CDT [facility] HCT 35.8(L) 36.0 - 47.0 % 01/05/2022 2:47 PM CDT [facility] MCV 94.2 78.0 - 100.0 FL 01/05/2022 2:47 PM CDT [facility] MCH 31.1(H) 27.0 - 31.0 PG 01/05/2022 2:47 PM CDT [facility] MCHC 33.0 33.0 - 36.0 G/DL 01/05/2022 2:47 PM CDT [facility] RDW 12.1 11.5 - 14.5 % 01/05/2022 2:47 PM CDT [facility] PLT 235 150 - 350 x10'3/uL 01/05/2022 2:47 PM CDT [facility] MPV 10.6(H) 7.4 - 10.4 FL 01/05/2022 2:47 PM CDT [facility] DIFFERENTIAL TYPE AUTOMATED DIFFERENTIAL 01/05/2022 2:47 PM CDT [facility] NEUTROPHILS % 46.4 % 01/05/2022 2:47 PM CDT [facility] LYMPHOCYTES % 39.8 % 01/05/2022 2:47 PM CDT [facility] MONOCYTES % 9.5 % 01/05/2022 2:47 PM CDT [facility] EOSINOPHILS % 3.7 % 01/05/2022 2:47 PM CDT [facility] BASOPHILS % 0.6 % 01/05/2022 2:47 PM CDT [facility] IMMATURE GRANS % 0.0 % 01/05/2022 2:47 PM CDT [facility] ABS. NEUTROPHILS 2.24 1.60 - 8.30 x10'3/uL 01/05/2022 2:47 PM CDT [facility] ABS. LYMPHOCYTES 1.92 0.80 - 4.70 x10'3/uL 01/05/2022 2:47 PM CDT [facility] ABS. MONOCYTES 0.46 0.00 - 1.50 x10'3/uL 01/05/2022 2:47 PM CDT [facility] ABS. EOSINOPHILS 0.18 0.00 - 0.40 x10'3/uL 01/05/2022 2:47 PM CDT [facility] ABS. BASOPHILS 0.03 0.00 - 0.20 x10'3/uL 01/05/2022 2:47 PM CDT [facility] ABS. IMMATURE GRANULOCYTES 0.00 0.00 - 0.03 x10'3/uL 01/05/2022 2:47 PM CDT [facility] 01/05/2022 9:47 AM CDT Crystal [facility] Final Result -[facility] [place] [address] [facility] [address], [place] [phone] * (ABNORMAL) COMPREHENSIVE METABOLIC PANEL (01/05/2022 9:47 AM CDT) [facility] SODIUM S/P/B 139 136 - 145 MMOL/L 01/05/2022 6:01 PM CDT -[facility] POTASSIUM S/P/B 4.5 3.5 - 5.1 MMOL/L 01/05/2022 6:01 PM CDT [facility] CHLORIDE S/P/B 104 98 - 107 MMOL/L 01/05/2022 6:01 PM CDT [facility] CO2 23.8 21 - 32 MMOL/L 01/05/2022 6:01 PM CDT -[facility] GLUCOSE 86 70 - 99 MG/DL 01/05/2022 6:01 PM CDT [facility] BUN 15 6 - 24 MG/DL 01/05/2022 6:01 PM CDT [facility] CREATININE S/P/B 0.53(L) 0.55 - 1.02 MG/DL 01/05/2022 6:01 PM CDT [facility] CALCIUM S/P/B 8.5 8.4 - 10.5 MG/DL 01/05/2022 6:01 PM CDT [facility] BILIRUBIN TOTAL S/P/B 0.4 0.2 - 1.0 MG/DL 01/05/2022 6:01 PM CDT [facility] ALKALINE PHOSPHATASE S/P/B 65 37 - 98 U/L 01/05/2022 6:01 PM CDT [facility] AST 20 15 - 37 U/L 01/05/2022 6:01 PM CDT [facility] ALT 25 14 - 59 U/L 01/05/2022 6:01 PM T [facility] TOTAL PROTEIN S/P/B 6.2(L) 6.4 - 8.2 G/DL 01/05/2022 6:01 PM T [facility] ALBUMIN S/P/B 3.8 3.4 - 5.0 G/DL 01/05/2022 6:01 PM T [facility] ANION GAP 11.2 5 - 15 MMOL/L 01/05/2022 6:01 PM T [facility] Comment:REFERENCE RANGE NOT ESTABLISHED OSMOLALITY (CALC) 288 MOSM/KG 01/05/2022 6:01 PM T [facility] Comment:REFERENCE RANGE NOT ESTABLISHED EGFR NON-AFR. AMER. >90 >90 ML/MIN/1 .73 M2 01/05/2022 6:01 PM T [facility] EGFR AFR. AMER. >90 >90 ML/MIN/1 .73 M2 01/05/2022 6:01 PM T [facility] GFR NOTES THE ESTIMATED GFR IS CALCULATED USING THE 2009 CKD-EPI EQUATION. THE FOLLOWING CATEGORIES FOR GRADING RENAL FUNCTION ARE RECOMMENDED BY THE INTERNATIONAL SOCIETY OF NEPHROLOGY (KDIGO 2012 CLINICAL PRACTICE GUIDELINE). 01/05/2022 6:01 PM T [facility] Comment: G1,NORMAL OR HIGH: >89 ml/min/1.73 m2 G2,MILDLY DECREASED: 60-89 ml/min/1.73 m2 G3A,MILDLY TO MODERATELY DECREASED: 45-59 ml/min/1.73 m2 G3B,MODERATELY TO SEVERELY DECREASED: 30-44 ml/min/1.73 m2 G4,SEVERELY DECREASED: 15-29 ml/min/1.73 m2 G5,KIDNEY FAILURE: <15 ml/min/1.73 m2 01/05/2022 9:47 AM CDT Crystal Poirot APNP LABORATORY Final Result [facility] [address] [place] [address], * LIPID PANEL (01/05/2022 9:47 AM CDT) CHOLESTEROL 179 <200 MG/DL 01/05/2022 6:01 PM CDT [facility] TRIGLYCERIDES <15 <150 MG/DL 01/05/2022 6:01 PM CDT [facility] HDL 99 >40 MG/DL 01/05/2022 6:01 PM CDT [facility] LDL-C Unable to calculate LDL, triglycerides <15 mg/dL 80 - 190 MG/DL 01/06/2022 9:06 AM CDT [facility] VLDL CALCULATION UNABLE TO CALCULATE 5 - 28 MG/DL 01/06/2022 9:07 AM CDT [facility] CHOL/HDL RATIO 1.8 0.0 - 4.0 01/05/2022 6:01 PM CDT [facility] LDL/HDL UNABLE TO CALCULATE 0.41 - 2.13 01/06/2022 9:07 AM CDT [facility] NON HDL CHOLESTEROL 80 <140 MG/DL 01/05/2022 6:01 PM CDT [facility] 01/05/2022 9:47 AM CDT Crystal Cedeno [facility]ONP [facility] Final Result [facility] [address] [place] [address], [place] [phone] * TSH W/REFLEX (01/05/2022 9:47 AM CDT) TSH 1.077 0.358 - 3.740 uIU/ML 01/05/2022 6:01 PM CDT [facility] 01/05/2022 9:47 AM CDT Crystal [facility] Final Result Performing Organization Address [facility]/ZIP Co de Phone Number [facility] [address] [place] [address], * VITAMIN D, 25 OH (01/05/2022 9:47 AM CDT) VITAMIN D 25 HYDROXY TOTAL S/P/B 32.5 20 - 50 NG/ML 01/05/2022 6:01 PM CDT [facility] Comment: <10 ng/mL (Severe deficiency) 10 TO 19 ng/mL (Mild to Moderate deficiency) 20 TO 50 ng/mL (Optimum levels) 51 TO 80 ng/mL (Increased risk of hypercalciuria) >80 ng/mL (Toxicity possible) 01/05/2022 9:47 AM CDT Crystal Lovesaira [facility] Final Result Performing Organization Address [facility] Co de Phone Number [address] [address], * VITAMIN B-12 (01/05/2022 9:47 AM CDT) VITAMIN B12 S/P/B 421 193 - 986 PG/ML 01/05/2022 6:01 PM CDT [facility] 01/05/2022 9:47 AM CDT Crystal [facility] Final Result Performing Organization Address City/[facility]/ZIP Co de Phone Number [facility] [address] [place] [address], [place] [phone] * (ABNORMAL) FOLIC ACID SERUM (01/05/2022 9:47 AM CDT) FOLATE >20.0(H) 3.1 - 17.5 NG/ML 01/05/2022 4:00 PM CDT [facility] 01/05/2022 9:47 AM CDT Crystal Cedeno [facility] Final Result [facility] [address] [place] [address], * HEPATITIS C ANTIBODY (01/05/2022 9:47 AM CDT) Pathologist [facility] HEPATITIS C AB NON-REACTI VE NON-REACT GUILLERMO 01/05/2022 7:15 PM CDT [facility] Comment: ANTIBODIES TO HCV NOT DETECTED. DOES NOT EXCLUDE THE POSSIBILITY OF EXPOSURE TO HCV. 01/05/2022 9:47 AM CDT Crystal Vinceaurorasaira [facility] Final Result Performing Organization Address City/State/[facility] Co de Phone Number [facility] [address] [place] [address], [place] [phone] documented in this encounter Visit Diagnoses Diagnosis Healthcare maintenance- Primary Routine general medical examination at a health care facility Screening for hyperlipidemia Screening for lipoid disorders Screening for diabetes mellitus (DM) Screening for diabetes mellitus Screening for thyroid disorder Need for hepatitis C screening test Special screening examination for other specified viral diseases Attention deficit hyperactivity disorder (ADHD), combined type documented in this encounter Additional Health Concerns Assessment Noted Time PHQ-9 Depression Total Score: 15 2 022 10:50 AM CDT documented as of this encounter Care Teams Horse Race Timer Relationship Specialty Start Date End Date Crystal Cedeno APNP [address] [place] [address] PCP - General NURSE PRACTITIONER 01/05/22 documented as of this encounter
--- OUTSIDE RECORDS SUMMARY | 2024-10-07 02:48 | XMS_ITS | Encounter Summary ---
Author Organization [facility] Address [address] [place] [address]. [place], [place] [address] [place] [address] Care Team Providers Care Banking Consultant Name Role Phone Miladis Sosa Primary Care Provider [phone] Reason for Visit * Reason Onset Date Comments Orders 11/22/2021 Encounter Details Date Type Department Care Team (Late st Contact Info) Description 11/22/2021 Telephone [facility] Family & Internal Medicine [facility] [address] [place] [address] [place] [address] [place] [address] Orders Social History Tobacco Use Types Packs/Day Years Used Date Smoking Tobacco: Never Smokeless Tobacco: Never Alcohol Use Standard Drinks/Week Comments Yes 0 (1 standard drink = 0.6 oz pur e alcohol) PHQ-2 Answer Date Recorded PHQ-2 Score - If the patient scores above 3, please move on to questions 3-9 0 11/22/2021 Comments No Sex and Gender Information Value [...] suspected to have Coronavirus/COVID-19? No / Unsure 11/22/2021 2:04 PM VETERINARIAN ASSISTANT documented as of this encounter Progress Notes * Paty Terry - 11/23/2021 8:56 AM CSTSummary: CT ABD This was done in the er yesterday. RINARIAN ASSISTANT * Ofelia So LPN - 11/22/2021 3:36 PM CST Pt had OV with dr. Ge today and got order for CT ABD PEL THIS NEEDS To sent to [facility] [phone] RINARIAN ASSISTANT documented in this encounter Plan of Treatment Not on file documented as of this encounter Visit Diagnoses Not on filedocumented in this encounter Additional Health Concerns Assessment Noted Time PHQ-9 Depression Total Score: 0 11/22/19 22 2:38 PM VETERINARIAN ASSISTANT documented as of this encounter Care Teams Banking Consultant Relationship Specialty Start [place] [address] [place] [address] PCP - General PHYSICIAN ENGINEERING TECH 02/10/20 01/04/22 documented as of this encounter
--- OUTSIDE RECORDS SUMMARY | 2024-10-07 02:48 | XMS_ITS | Encounter Summary ---
Author Organization [facility] Address [address] [place] [address]. [place], [place] [address] [place] [address] Care Team Providers Care Chief Dispatcher Service Name Role Phone Crystal Cedeno Primary Care Provider [phone] Encounter Details Date Type Department Care Team (Late st Contact Info) Description 04/06/2022 Short Fuzet Message Enc [facility] Medical Group Family and Sports Medicine - [place] [address] [place] [address] Crystal Cedeno APNP [address] [place] [address] Guess what I did Social History Tobacco Use Types Packs/Day Years Used Date Smoking Tobacco: Never Smokeless Tobacco: Never Alcohol Use Standard Drinks/Week Comments Yes 1 [...] suspected to have Coronavirus/COVID-19? No / Unsure 04/06/2022 8:35 AM CDT documented as of this encounter Progress Notes * Paty Hernandez CMA - 04/07/2022 11:03 AM CDT Called pt appt schedule 04/07/22 * DODIE Bal - 04/06/2022 1:52 PM CDTFrom: Leti Soto To: Crystal Cedeno Sent: 04/06/2022 12:47 PM CDT Subject: Guess what I did Hello, After my appointment today I went and visited my parents. While visiting I got tangled with their dog/leash and did something to my right foot. (The one with plantar fasciitis pain) I can put weight on the front of my foot but I can???t put any weight on the back of my foot. Since coming home I???ve iced it , tried to use the foot massager but any pressure/touch to the bottom half of my foot hurts horribly. Suggestions on what to do? Imaging? Could I have torn something? This pain is not the same pain I???d been having. And as you saw earlier I could walk just fine but now I can???t. I???m also scheduled 3 out of the next 4 days and that???s not going to be manageable walking the way I am. :/ -Yesenia documented in this encounter Plan of Treatment Not on file documented as of this encounter Results * XR FOOT RT 3V (04/06/2022 5:28 PM CDT) Anatomical Region Laterality Modality Foot Radiographic Laure ging 04/07/2022 8:06 AM CDT Impressions 04/07/2022 8:08 AM CDT =====IMPRESSION:===== Slight prominence between the articulation between the middle cuneiform and second metatarsal. This could relate to Lisfranc injury. Weightbearing views recommended. Clinical correlation. Plantar enthesopathy. Ordered By: CRYSTAL CEDENO Interpreted By: David Armando MD, 04/07/2022 8:06 AM Narrative 04/07/2022 8:08 AM CDT Examination: Right foot 3 views Exam date/time: 04/06/2022 5:19 PM Reason For Exam: ??foot injury, possible fracture ? Heel pain. Tripped. Comparison: None Technique: AP, oblique and lateral views of the right foot were obtained. Findings: There is slight prominence between the articulation between the cuneiforms and second metatarsal. Injury to the Lisfranc ligament is not excluded. Clinical correlation is recommended. Weight bearing views of the foot may be of use. Small osteophyte about the dorsum of the navicular bone. No ankle effusion. Plantar enthesophyte which may relate to ??plantar fasciitis. Procedure Note David Armando MD - 04/07/2022 Examination: Right foot 3 views Exam date/time: 04/06/2022 5:19 PM Reason For Exam: foot injury, possible fracture Heel pain. Tripped. Comparison: None Technique: AP, oblique and lateral views of the right foot wereobtained. Findings: There is slight prominence between the articulation between thecuneiforms and second metatarsal. Injury to the Lisfranc ligament is notexcluded. Clinical correlation is recommended. Weight bearing views of thefoot may be of use. Small osteophyte about the dorsum of the navicular bone. No ankleeffusion. Plantar enthesophyte which may relate to plantar fasciitis. =====IMPRESSION:===== Slight prominence between the articulation between the middle cuneiformand second metatarsal. This could relate to Lisfranc injury. Weightbearingviews recommended. Clinical correlation. Plantar enthesopathy. Ordered By: CRYSTAL CEDENO Interpreted By: David Armando MD, 04/07/2022 8:06 AM Crystal [facility] Final Result documented in this encounter Visit Diagnoses Diagnosis Injury of right foot, initial encounter- Primary Injury of right foot, initial encounter documented in this encounter Additional Health Concerns Assessment Noted Time PHQ-9 Depression Total Score: 15 022 10:50 AM CDT documented as of this encounter Care Teams Chief Dispatcher Service Relationship Specialty Start Date End Date Crystal Cedeno APNP [address] [place] [address] PCP - General NURSE PRACTITIONER 01/05/22 documented as of this encounter
--- OUTSIDE RECORDS SUMMARY | 2024-10-07 02:48 | XMS_ITS | Encounter Summary ---
Author Organization [facility] Address [address] [place] [address]. [place] [id number] Care Team Providers Care Industrial Sales Representative Name Role Phone Crystal Cdeeno Primary Care Provider [phone] Encounter Details Date Type Department Care Team (Late Contact Info) Description 01/10/2022 The Runthrough Message Enc [facility], [facility] Provider Patient Amendment Request Social History Tobacco Use Types Packs/Day [...] documented as of this encounter Care Teams Industrial Sales Representative Relationship Specialty Start Date End Date Crystal Cedeno APNP [address] [place] [address] PCP - General NURSE PRACTITIONER 01/05/22 documented as of this encounter
--- OUTSIDE RECORDS SUMMARY | 2024-10-07 02:48 | XMS_ITS | Encounter Summary ---
Author Organization [facility] Address [address] [place] [address]. [place], [place] [id number] [place] [address] Care Team Providers Care Active Directory Administrator Name Role Phone Crystal Cedeno Primary Care Provider [phone] Encounter Details Date Type Department Care Team (Late st Contact Info) Description 01/05/2022 9:40 AM CDT Laboratory Only [facility] Medical Group Family and Sports Medicine - [place] [address] [place] [address] Crystal Cedeno APNP [address] [place] [address] Social History Tobacco Use Types Packs/Day Years [...] encounter Progress Notes * DODIE Bal - 01/05/2022 9:40 AM CDT Slight anemia, recommend patient to increase foods that are rich in iron. All other labs are withinreason of normal limits. * DODIE Bal - 01/05/2022 9:40 AM CDT Lipid panel is normal. documented in this encounter Plan of Treatment Not on file documented as of this encounter Procedures Procedure Name Priority Date/Time Associated Diagnosis Comments COLLECTION VENOUS BLOOD VENIPUNCTURE Routine 01/05/2022 9:48 AM CDT Healthcare maintenance Screening for diabetes mellitus (DM) Screening for hyperlipidemia Screening for thyroid disorder Need for hepatitis C screening test TSH W/REFLEX Routine 01/05/2022 9:47 AM CDT Healthcare maintenance Screening for thyroid disorder HEMOGLOBIN, GLYCOSYLATED Routine 01/05/2022 9:47 AM CDT Healthcare maintenance Screening for diabetes mellitus (DM) VITAMIN B-12 Routine 01/05/2022 9:47 AM CDT Healthcare maintenance COMPREHENSIVE METABOLIC PANEL Routine 01/05/2022 9:47 AM CDT Healthcare maintenance Screening for diabetes mellitus (DM) LIPID PANEL Routine 01/05/2022 9:47 AM CDT Healthcare maintenance Screening for hyperlipidemia HEPATITIS C ANTIBODY Routine 01/05/2022 9:47 AM CDT Need for hepatitis C screening test FOLIC ACID SERUM Routine 01/05/2022 9:47 AM CDT Healthcare maintenance CBC W/DIFF AUTOMATED Routine 01/05/2022 9:47 AM CDT Healthcare maintenance VITAMIN D, 25 OH Routine 01/05/2022 9:47 AM CDT Healthcare maintenance documented in this encounter Results * HEPATITIS C ANTIBODY (01/05/2022 9:47 AM CDT) HEPATITIS C AB NON-REACTI VE NON-REACT GUILLERMO 01/05/2022 7:15 PM CDT [facility] Comment: ANTIBODIES TO HCV NOT DETECTED. DOES NOT EXCLUDE THE POSSIBILITY OF EXPOSURE TO HCV. 01/05/2022 9:47 AM CDT [facility] Final Result [facility] [address] [place] [address], [place] [phone] * (ABNORMAL) FOLIC ACID SERUM (01/05/2022 9:47 AM CDT) Pathologist [facility] FOLATE >20.0(H) 3.1 - 17.5 NG/ML 01/05/2022 4:00 PM CDT [facility] 01/05/2022 9:47 AM CDT [facility] Final Result Performing Organization Address [facility] Co de Phone Number [facility] [address] [place] [address], [place] [phone] * VITAMIN B-12 (01/05/2022 9:47 AM CDT) Pathologist [facility] VITAMIN B12 S/P/B 421 193 - 986 PG/ML 01/05/2022 6:01 PM CDT [facility] 01/05/2022 9:47 AM CDT [facility] Final Result Performing Organization Address City/[facility]/ZIP Co de Phone Number [facility] [address] [place] [address], * VITAMIN D, 25 OH (01/05/2022 9:47 AM CDT) Pathologist [facility] VITAMIN D 25 HYDROXY TOTAL S/P/B 32.5 20 - 50 NG/ML 01/05/2022 6:01 PM CDT [facility] Comment: <10 ng/mL (Severe deficiency) 10 TO 19 ng/mL (Mild to Moderate deficiency) 20 TO 50 ng/mL (Optimum levels) 51 TO 80 ng/mL (Increased risk of hypercalciuria) >80 ng/mL (Toxicity possible) 01/05/2022 9:47 AM CDT [facility] Final Result [address] [address], * TSH W/REFLEX (01/05/2022 9:47 AM CDT) Pathologist [facility] TSH 1.077 0.358 - 3.740 uIU/ML 01/05/2022 6:01 PM CDT [facility] 01/05/2022 9:47 AM CDT [facility] Final Result [place] [address] [place] [address], * LIPID PANEL (01/05/2022 9:47 AM CDT) [facility] CHOLESTEROL 179 <200 MG/DL 01/05/2022 6:01 PM CDT [facility] TRIGLYCERIDES <15 <150 MG/DL 01/05/2022 6:01 PM CDT [facility] HDL 99 >40 MG/DL 01/05/2022 6:01 PM CDT [facility] LDL-C Unable to calculate LDL, triglycerides <15 mg/dL 80 - 190 MG/DL 01/06/2022 9:06 AM CDT [facility] VLDL CALCULATION UNABLE TO CALCULATE 5 - 28 MG/DL 01/06/2022 9:07 AM CDT [facility] CHOL/HDL RATIO 1.8 0.0 - 4.0 01/05/2022 6:01 PM CDT [facility] LDL/HDL UNABLE TO CALCULATE 0.41 - 2.13 01/06/2022 9:07 AM T [facility] NON HDL CHOLESTEROL 80 <140 MG/DL 01/05/2022 6:01 PM T [facility] 01/05/2022 9:47 AM CDT Crystal Loves[facility]a [facility] Final Result [facility] [address] [place] [address], * (ABNORMAL) COMPREHENSIVE METABOLIC PANEL (01/05/2022 9:47 AM CDT) SODIUM S/P/B 139 136 - 145 MMOL/L 01/05/2022 6:01 PM CDT [facility] POTASSIUM S/P/B 4.5 3.5 - 5.1 MMOL/L 01/05/2022 6:01 PM CDT [facility] CHLORIDE S/P/B 104 98 - 107 MMOL/L 01/05/2022 6:01 PM CDT [facility] CO2 23.8 21 - 32 MMOL/L 01/05/2022 6:01 PM CDT [facility] GLUCOSE 86 70 - 99 MG/DL 01/05/2022 6:01 PM [facility] BUN 15 6 - 24 MG/DL 01/05/2022 6:01 [facility] CREATININE S/P/B 0.53(L) 0.55 - 1.02 MG/DL 01/05/2022 6:01 [facility] CALCIUM S/P/B 8.5 8.4 - 10.5 MG/DL 01/05/2022 6:01 [facility] BILIRUBIN TOTAL S/P/B 0.4 0.2 - 1.0 MG/DL 01/05/2022 6:01 [facility] ALKALINE PHOSPHATASE S/P/B 65 37 - 98 U/L 01/05/2022 6:01 [facility] AST 20 15 - 37 U/L 01/05/2022 6:01 [facility] ALT 25 14 - 59 U/L 01/05/2022 6:01 [facility] TOTAL PROTEIN S/P/B 6.2(L) 6.4 - 8.2 G/DL 01/05/2022 6:01 [facility] ALBUMIN S/P/B 3.8 3.4 - 5.0 G/DL 01/05/2022 6:01 [facility] ANION GAP 11.2 5 - 15 MMOL/L 01/05/2022 6:01 [facility] Comment:REFERENCE RANGE NOT ESTABLISHED OSMOLALITY (CALC) 288 MOSM/KG 01/05/2022 6:01 [facility] Comment:REFERENCE RANGE NOT ESTABLISHED EGFR NON-AFR. AMER. >90 >90 ML/MIN/1 .73 M2 01/05/2022 6:01 [facility] EGFR AFR. AMER. >90 >90 ML/MIN/1 .73 M2 01/05/2022 6:01 PM CDT [facility] GFR NOT[facility] THE ESTIMATED GFR IS CALCULATED USING THE 2009 CKD-EPI EQUATION. THE FOLLOWING CATEGORIES FOR GRADING RENAL FUNCTION ARE RECOMMENDED BY THE INTERNATIONAL SOCIETY OF NEPHROLOGY (KDIGO 2012 CLINICAL PRACTICE GUIDELINE). 01/05/2022 6:01 PM CDT [facility] Comment: G1,NORMAL OR HIGH: >89 ml/min/1.73 m2 G2,MILDLY DECREASED: 60-89 ml/min/1.73 m2 G3A,MILDLY TO MODERATELY DECREASED: 45-59 ml/min/1.73 m2 G3B,MODERATELY TO SEVERELY DECREASED: 30-44 ml/min/1.73 m2 G4,SEVERELY DECREASED: 15-29 ml/min/1.73 m2 G5,KIDNEY FAILURE: <15 ml/min/1.73 m2 01/05/2022 9:47 AM CDT Crystal Pao [facility] Final Result [facility] [address] [place] [address], * (ABNORMAL) CBC W/DIFF AUTOMATED (01/05/2022 9:47 AM CDT) WBC 4.8 4.0 - 10.8 x10'3/uL 01/05/2022 2:47 PM CDT [facility] RBC 3.80(L) 4.10 - 5.40 x10'6/uL 01/05/2022 2:47 PM CDT [facility] HGB 11.8(L) 12.0 - 16.0 G/DL 01/05/2022 2:47 PM CDT [facility] HCT 35.8(L) 36.0 - 47.0 % 01/05/2022 2:47 PM CDT [facility] MCV 94.2 78.0 - 100.0 FL 01/05/2022 2:47 PM CDT [facility] MCH 31.1(H) 27.0 - 31.0 PG 01/05/2022 2:47 PM CDT [facility] MCHC 33.0 33.0 - 36.0 G/DL 01/05/2022 2:47 PM CDT [facility] RDW 12.1 11.5 - 14.5 % 01/05/2022 2:47 PM CDT [facility] PLT 235 150 - 350 x10'3/uL 01/05/2022 2:47 PM CDT [facility] MPV 10.6(H) 7.4 - 10.4 FL 01/05/2022 2:47 PM CDT [facility] DIFFERENTIAL TYPE AUTOMATED DIFFERENTIAL 01/05/2022 2:47 PM CDT [facility] NEUTROPHILS % 46.4 % 01/05/2022 2:47 PM CDT [facility] LYMPHOCYTES % 39.8 % 01/05/2022 2:47 PM CDT [facility] MONOCYTES % 9.5 % 01/05/2022 2:47 PM CDT [facility] EOSINOPHILS % 3.7 % 01/05/2022 2:47 PM CDT [facility] BASOPHILS % 0.6 % 01/05/2022 2:47 PM CDT [facility] IMMATURE GRANS % 0.0 % 01/05/2022 2:47 PM CDT [facility] ABS. NEUTROPHILS 2.24 1.60 - 8.30 x10'3/uL 01/05/2022 2:47 PM CDT [facility] ABS. LYMPHOCYTES 1.92 0.80 - 4.70 x10'3/uL 01/05/2022 2:47 PM CDT [facility] ABS. MONOCYTES 0.46 0.00 - 1.50 x10'3/uL 01/05/2022 2:47 PM CDT [facility] ABS. EOSINOPHILS 0.18 0.00 - 0.40 x10'3/uL 01/05/2022 2:47 PM CDT [facility] ABS. BASOPHILS 0.03 0.00 - 0.20 x10'3/uL 01/05/2022 2:47 PM CDT [facility] ABS. IMMATURE GRANULOCYTES 0.00 0.00 - 0.03 x10'3/uL 01/05/2022 2:47 PM CDT [facility] 01/05/2022 9:47 AM CDT Crystal Pao [facility] Final Result Performing Organization Address City/[facility] Co de Phone Number [place] [address] [place] [address], [place] [phone] * HEMOGLOBIN, GLYCOSYLATED (01/05/2022 9:47 AM CDT) HGB A1C 5.1 3.80 - 5.60 % 01/05/2022 4:30 PM CDT [facility] ESTIMATED AVG GLUCOSE 100 74 - 106 MG/DL 01/05/2022 4:30 PM CDT [facility] 01/05/2022 9:47 AM CDT Crystal [facility] Final Result Performing Organization Address City/[facility]/ZIP Co de Phone Number [facility] [address] [place] [address], [place] [phone] documented in this encounter Visit Diagnoses Diagnosis Healthcare maintenance Routine general medical examination at a health care facility Screening for diabetes mellitus (DM) Screening for diabetes mellitus Screening for hyperlipidemia Screening for lipoid disorders Screening for thyroid disorder Need for hepatitis C screening test Special screening examination for other specified viral diseases documented in this encounter Additional Health Concerns Assessment Noted Time PHQ-9 Depression Total Score: 15 022 10:50 AM CDT documented as of this encounter Care Teams Active Directory Administrator Relationship Specialty Start Date End Date Crystal Cedeno APNP [address] [place] [address] PCP - General NURSE PRACTITIONER 01/05/22 documented as of this encounter
--- OUTSIDE RECORDS SUMMARY | 2024-10-07 02:48 | XMS_ITS | Encounter Summary ---
Author Organization [facility] Address [address] [place] [address]. [place], [place] [address] [place] [address] Care Team Providers Care Cashiers Supervisor Name Role Phone Crystal Cedeno Primary Care Provider [phone] Encounter Details Date Type Department Care Team (Latest Contact Info) Description 05/02/2022 Travel Social History Tobacco Use Types Packs/Day [...] suspected to have Coronavirus/COVID-19? No / Unsure 05/02/2022 10:40 AM CDT documented as of this encounter Plan of Treatment Not on file documented as of this encounter Visit Diagnoses Not on filedocumented in this encounter Additional Health Concerns Assessment Noted Time PHQ-9 Depression Total Score: 15 022 10:50 AM CDT documented as of this encounter Care Teams Cashiers Supervisor Relationship Specialty Start Date End Date Crystal Cedeno APNP [address] [place] [address] PCP - General NURSE PRACTITIONER 01/05/22 documented as of this encounter
--- OUTSIDE RECORDS SUMMARY | 2024-10-07 02:48 | XMS_ITS | Encounter Summary ---
Author Organization [facility] Address [address] [place] [address]. [place], [place] [address] [place] [address] Care Team Providers Care Mill Controller Name Role Phone Crystal Cedeno Primary Care Provider [phone] Encounter Details Date Type Department Care Team (Late st Contact Info) Description 05/15/2022 iyzicot Message Enc [facility] Medical Group Family and Sports Medicine - [place] [address] [place] [address] Crystal Cedeno APNP [address] [place] [address] Medication question Social History Tobacco Use Types Packs/Day Years [...] encounter Progress Notes * DODIE Bal - 05/18/2022 10:51 AM CDTFrom: Leti Soto To: Crystal Cedeno Sent: 05/15/2022 1:26 PM CDT Subject: Medication question Hello there! I am just curious if you???ve had success with prescribing Wellbutrin to your patients? I know Prozac and Wellbutrin are often paired but unsure if you???ve seen success with that? I just don???t feel like the vyvanse is really helping/doing the job. I don???t just thinking. -Yesenia documented in this encounter Plan of Treatment Not on file documented as of this encounter Visit Diagnoses Diagnosis Moderate episode of recurrent major depressive disorder (CMS/HCC HHS/HCC)- Primary documented in this encounter Additional Health Concerns Assessment Noted Time PHQ-9 Depression Total Score: 15 022 10:50 AM CDT documented as of this encounter Care Teams Mill Controller Relationship Specialty Start Date End Date Crystal Cedeno APNP [address] [place] [address] PCP - General NURSE PRACTITIONER 01/05/22 documented as of this encounter
--- OUTSIDE RECORDS SUMMARY | 2024-10-07 02:48 | XMS_ITS | Encounter Summary ---
Author Organization [facility] Address [address] [place] [address]. [place], [place] [address] [place] [address] Care Team Providers Care Traffic Investigator Name Role Phone Crystal Cedeno Primary Care Provider [phone] Encounter Details Date Type Department Care Team (Latest Contact Info) Description 04/07/2022 Travel Social History Tobacco Use Types Packs/Day [...] suspected to have Coronavirus/COVID-19? No / Unsure 04/07/2022 2:07 PM CDT documented as of this encounter Plan of Treatment Not on file documented as of this encounter Visit Diagnoses Not on filedocumented in this encounter Additional Health Concerns Assessment Noted Time PHQ-9 Depression Total Score: 15 022 10:50 AM CDT documented as of this encounter Care Teams Traffic Investigator Relationship Specialty Start Date End Date Crystal Cedeno APNP [address] [place] [address] PCP - General NURSE PRACTITIONER 01/05/22 documented as of this encounter
--- OUTSIDE RECORDS SUMMARY | 2024-10-07 02:48 | XMS_ITS | Encounter Summary ---
Author Organization [facility] Address [address] [place] [address]. [place], [place] [address] [place] [id number] Care Team Providers Care Knuckler Name Role Phone Crystal Cedeno Primary Care Provider [phone] Reason for Visit * Reason Comments Follow Up weight, diet, and li fe. See [employer] for more info. Encounter Details Date Type Department Care Team (Late st Contact Info) Description 08/24/2022 9:00 AM UTILIZATION REVIEW SPECIALIST Office Visit [facility] - [place] [address] [place] [address] Crystal Cedeno APNP [address] [place] [address] Follow Up (weight, diet, and life. See [employer] for more info. ) Social History Tobacco Use Types Packs/Day [...] Coronavirus/COVID-19? No / Unsure 08/24/2022 8:13 AM UTILIZATION REVIEW SPECIALIST documented as of this encounter Last Filed Vital Signs Vital Sign Reading Time Taken Comments Blood Pressure 120/82 08/24/2022 8:42 AM UTILIZATION REVIEW SPECIALIST Pulse 103 08/24/2022 8:42 AM UTILIZATION REVIEW SPECIALIST Temperature 36.6 ??C (97.9 ??F) 08/24/2022 8:42 AM CS T Respiratory Rate 21 08/24/2022 8:42 AM UTILIZATION REVIEW SPECIALIST Oxygen Saturation 98% 08/24/2022 8:42 AM UTILIZATION REVIEW SPECIALIST Inhaled Oxygen Concentration - - Weight 152.9 kg (337 lb) 08/24/2022 8:42 AM UTILIZATION REVIEW SPECIALIST Height 167.6 cm (5' 6 ) 08/24/2022 8:42 AM UTILIZATION REVIEW SPECIALIST Body Mass Index 54.39 08/24/2022 8:42 AM UTILIZATION REVIEW SPECIALIST documented in this encounter Progress Notes * Crystal DODIE Cedeno - 08/24/2022 9:00 AM CST Images from the original note were not included. Office Note Reason for Visit: Follow Up (weight, diet, and life. See [employer] message for more info. ) History of Present Illness: Here for difficulty losing weight. Patient reports that a little of her stress level has come down as she is cutting down her hours at work. She is also interested in seeing a dietitian. ROS: Review of Systems Constitutional: Negative for chills and fever. HENT: Negative for ear pain and sore throat. Respiratory: Negative for cough, shortness of breath and wheezing. Cardiovascular: Negative for chest pain and palpitations. Gastrointestinal: Negative for blood in stool, constipation, diarrhea, nausea and vomiting. Genitourinary: Negative for dysuria. Musculoskeletal: Negative for myalgias. Neurological: Negative for focal weakness, weakness and headaches. Psychiatric/Behavioral: Negative for depression and suicidal ideas. Medications: Current Outpatient Medications: ??? buPROPion XL (WELLBUTRIN XL) 300 MG 24 hr tablet, Take 1 tablet (300 mg total) by mouth daily.,Disp: 90 tablet, Rfl: 3 ??? FLUoxetine 20 MG capsule, Take 3 capsules (60 mg total) by mouth daily., Disp: 270 capsule, Rfl: 1 ??? Levonorgestrel (MIRENA, 52 MG, IU), , Disp: , Rfl: ??? tirzepatide (MOUNJARO) 2.5 MG/0.5ML injection, Inject 2.5 mg into the skin weekly., Disp: 2 mL,Rfl: 0 Allergies: Allergies Allergen Reactions ??? Tramadol Other (see comment) Shaky, increased heart rate, sweating. ??? Penicillins Rash and Unknown Medical History: Past Medical History: Diagnosis Date ??? Anxiety ??? Depression Surgical History: Past Surgical History: Procedure Laterality Date ??? CHOLECYSTECTOMY ??? EYE SURGERY Lasic Social History: Social History Socioeconomic History ??? Marital status: Single Tobacco Use ??? Smoking status: Never ??? Smokeless tobacco: Never ??? Tobacco comments: non smoker Vaping Use ??? Vaping Use: Never used Substance and Sexual Activity ??? Alcohol use: Yes Alcohol/week: 1.0 standard drink Types: 1 Standard drinks or equivalent per week Comment: social ??? Drug use: Never Comment: NA ??? Sexual activity: Yes Partners: Male control/protection: I.U.D. Family History: Family History Problem Relation Name Age of Onset ??? Anxiety Mother Jefferson soto ??? Osteoarthritis Mother Jefferson soto ??? Arthritis Mother Jefferson soto ??? Depression Mother Jefferson soto ??? Diabetes Father Hunter soto ??? Heart Disease Father Hunter soto ??? Depression Father Hunter soto ??? Lung Disease Maternal Grandmother Elizabet Enmanuel ??? Diabetes Maternal Grandmother Elizabet Enmanuel ??? Depression Maternal Grandmother Elizabet Enmanuel ??? Mental Health Maternal Grandmother Elizabet Enmanuel Agoraphobia ??? Diabetes Maternal Grandfather Wilberto Enmanuel ??? Kidney Disease Maternal Grandfather Wilberto Enmanuel ??? Cancer Paternal Grandmother Anna Mcallister from cancer related. ??? Diabetes Paternal Grandfather Scott Mcallister ??? Heart Disease Paternal Grandfather Scott Mcallister ??? COPD Paternal Grandfather Scott Mcallister ??? Hypertension Paternal Grandfather Scott Mcallister PE: Physical Exam Vitals and nursing note [...] Tenderness: There is no abdominal tenderness. Comments: overweight Musculoskeletal: General: Normal range of motion. Lymphadenopathy: Cervical: No cervical adenopathy. Skin: General: Skin is warm and dry. Findings: No rash. Neurological: Mental Status: She is alert and oriented to person, place, and time. Cranial Nerves: No cranial nerve deficit. Gait: Gait is intact. Psychiatric: Mood and Affect: Mood and affect normal. Cognition and Memory: Memory normal. Judgment: Judgment normal. Filed Vitals: 08/24/22 0842 BP: 120/82 Pulse: 103 Resp: 21 Temp: 97.9 ??F (36.6 ??C) SpO2: 98% Weight: (!) 152.9 kg (337 lb) Height: 5' 6 (1.676 m) Body mass index is 54.39 kg/m??. Diagnoses/Plan: 1. Class 3 severe obesity due to excess calories without serious comorbidity with body mass index (BMI) of 50.0 to 59.9 in adult (CMS/HCC) tirzepatide (MOUNJARO) 2.5 MG/0.5ML injection Medications Discontinued During This Encounter Medication Reason ??? acetaminophen-codeine (TYLENOL #3) 300-30 MG tablet ??? celecoxib (CELEBREX) 100 MG capsule Discussion: Referred to dietitian in [place] for abdominal diseases to help with weight loss and metabolicdisorder. Patient to start Mounjaro. Discussed food tracking eva and setting weight loss goal of that is realistic and will help keep the weight off correction such as 12 pounds in 12 weeks. Monitor portions carefully and plan meals and advance. Increase increase daily activity level and walk for exercise. Watch intake of carbs and sugars. Increase daily water intake. Monitor heart rate and blood pressure. Follow-up in 3 months. DODIE LIZ 08/29/2022 IZATION REVIEW SPECIALIST documented in this encounter Plan of Treatment Not on file documented as of this encounter Visit Diagnoses Diagnosis Class 3 severe obesity due to excess calories without serious comorbidity with body mass index (BMI) of 50.0 to 59.9 in adult (CMS/HCC HHS/HCC)- Primary documented in this encounter Additional Health Concerns Assessment Noted Time PHQ-9 Depression Total Score: 15 022 10:50 AM CDT documented as of this encounter Care Teams Knuckler Relationship Specialty Start Date End Date Crystal Cedeno APNP [address] [place] [address] PCP - General NURSE PRACTITIONER 01/05/22 documented as of this encounter
--- OUTSIDE RECORDS SUMMARY | 2024-10-07 02:48 | XMS_ITS | Encounter Summary ---
Author Organization [facility] Address [address] [place] [address]. [place], [place] [id number] [place] [address] Care Team Providers Care Sweeper Driver Name Role Phone Crystal Cedeno Primary Care Provider [phone] Reason for Visit * Reason Comments Follow Up Foot Encounter Details Date Type Department Care Team (Late st Contact Info) Description 04/07/2022 2:20 PM CDT Office Visit [facility] Family [facility] Medicine - [place] [address] [place] [address] Crystal Cedeno APNP [address] [place] [address] Follow Up (Foot ) Social History Tobacco Use Types Packs/Day Years Used Date Smoking Tobacco: Never Smokeless Tobacco: Never Tobacco Cessation:Counseling Given: No Alcohol Use Standard Drinks/Week Comments Yes 1 [...] Sign Reading Time Taken Comments Blood Pressure 112/72 04/07/2022 2:19 PM CDT Pulse 76 04/07/2022 2:19 PM CDT Temperature 36.7 ??C (98 ??F) 04/07/2022 2:19 PM CDT Respiratory Rate 19 04/07/2022 2:19 PM CDT Oxygen Saturation 98% 04/07/2022 2:19 PM CDT Inhaled Oxygen Concentration - - Weight 136.5 kg (301 lb) 04/07/2022 2:19 PM CDT Height 167.6 cm (5' 6 ) 04/07/2022 2:19 PM CDT Body Mass Index 48.58 04/07/2022 2:19 PM CDT documented in this encounter Progress Notes * Crystal CedenoDODIE - 04/07/2022 2:20 PM CDT Images from the original note were not included. Office Note Reason for Visit: Follow Up (Foot ) History of Present Illness: Here for c/o of new right foot pain. Pt was seen yesterday for chronic foot pain but patient reports after her appointment yesterday she went to her parents house and she got tangled up with the dog leash and injured her right foot. Pt called to report this injury and that she was unable to bear weight. XR was ordered and it shows slight prominence between the articulation between the middle cuneiform and second metatarsal. This could relate to Lisfranc injury. Weightbearing views recommended. We will obtain these images today and place patient on non weightbearing restriction. Pt will need walking boot and crutches. ROS: Review of Systems Constitutional: Negative for chills and fever. HENT: Negative for ear pain and sore throat. Respiratory: Negative for cough, shortness of breath and wheezing. Cardiovascular: Negative for chest pain and palpitations. Gastrointestinal: Negative for blood in stool, constipation, diarrhea, nausea and vomiting. Genitourinary: Negative for dysuria. Musculoskeletal: Negative for myalgias. Right foot pain Neurological: Negative for focal weakness, weakness and headaches. Psychiatric/Behavioral: Negative for depression and suicidal ideas. Medications: Current Outpatient Medications: ??? celecoxib (CELEBREX) 100 MG capsule, Take 1 capsule (100 mg total) by mouth 2 (two) times dailyfor 30 days., Disp: 60 capsule, Rfl: 0 ??? FLUoxetine 20 MG capsule, Take 3 capsules (60 mg total) by mouth daily., Disp: 270 capsule, Rfl: 1 ??? Levonorgestrel (MIRENA, 52 MG, IU), , Disp: , Rfl: ??? lisdexamfetamine (VYVANSE) 40 MG capsule, Take 1 capsule (40 mg total) by mouth every morning.,Disp: 30 capsule, Rfl: 0 ??? predniSONE 10 mg tablet, Start 60 mg today and decrease by one tablet each day until complete.,Disp: 21 tablet, Rfl: 0 Allergies: Allergies Allergen Reactions ??? Tramadol Other (see comment) Shaky, increased heart rate, sweating. ??? Penicillins Rash and Unknown Medical History: Past Medical History: Diagnosis Date ??? Anxiety ??? Depression Surgical History: Past Surgical History: Procedure Laterality Date ??? CHOLECYSTECTOMY ??? EYE SURGERY Lasic Social History: Social History Socioeconomic History ??? Marital status: Single Tobacco Use ??? Smoking status: Never Smoker ??? Smokeless tobacco: Never Used Vaping Use ??? Vaping Use: Never used Substance and Sexual Activity ??? Alcohol use: Yes Alcohol/week: 1.0 standard drink Types: 1 Standard drinks or equivalent per week ??? Drug use: Never ??? Sexual activity: Yes Partners: Male control/protection: I.U.D. Family History: Family History Problem Relation Name Age of Onset ??? Anxiety Mother Jefferson soto ??? Osteoarthritis Mother Jefferson soto ??? Arthritis Mother Jefferson soto ??? Depression Mother Jefferson soot ??? Diabetes Father Hunter soto ??? Heart Disease Father Hunter soto ??? Depression Father Hunter soto ??? Lung Disease Maternal Grandmother Elizabet Enmanuel ??? Diabetes Maternal Grandmother Elizabet Enmanuel ??? Depression Maternal Grandmother Elizabet Enmanuel ??? Mental Health Maternal Grandmother Elizabet Singer Agoraphobia ??? Diabetes Maternal Grandfather Wilberto Enmanuel [...] soft. Tenderness: There is no abdominal tenderness. Musculoskeletal: General: Normal range of motion. Comments: Right foot pain, unable to bear weight Lymphadenopathy: Cervical: No cervical adenopathy. Skin: General: Skin is warm and dry. Findings: No rash. Neurological: Mental Status: She is alert and oriented to person, place, and time. Cranial Nerves: No cranial nerve deficit. Gait: Gait is intact. Psychiatric: Mood and Affect: Mood and affect normal. Cognition and Memory: Memory normal. Judgment: Judgment normal. Filed Vitals: 04/07/22 1419 BP: 112/72 Pulse: 76 Resp: 19 Temp: 98 ??F (36.7 ??C) TempSrc: Temporal SpO2: 98% Weight: (!) 136.5 kg (301 lb) Height: 5' 6 (1.676 m) Body mass index is 48.58 kg/m??. Diagnoses/Plan: 1. Sprain of ligament of tarsometatarsal joint of right foot, initial encounter XR FOOT STANDING RT2V XR FOOT STANDING RT 3V 2. Right foot pain XR FOOT STANDING RT 2V XR FOOT STANDING RT 3V 3. Lisfranc dislocation, right, initial encounter Medications Discontinued During This Encounter Medication Reason ??? diclofenac EC 75 MG tablet (Clinician Removed from Med list) Discussion: Will obtain standing XR. Pt placed in walking boot and crutches for non weight bearing restrictions. Patient will also need orthopedic referral. DODIE LIZ 04/07/2022 documented in this encounter Plan of Treatment Not on file documented as of this encounter Results * XR FOOT STANDING RT 3V (04/07/2022 3:20 PM CDT) Anatomical Region Laterality Modality Foot Radiographic Laure ging 04/08/2022 8:23 AM CDT Impressions 04/08/2022 8:26 AM CDT Impression: 1. Pes planus with weightbearing. 2. 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 Stieda process of the posterior talus could cause posterior ankle impingement. 3. Widening of the Lisfranc joint bilaterally right worse than left. If there is concern for injury to the Lisfranc ligament, would consider MRI correlation. Ordered By: CRYSTAL CEDENO Interpreted By: Wenceslao Cosby Jr, MD, 04/08/2022 8:23 AM Narrative 04/08/2022 8:26 AM CDT Date: 04/07/2022 3:20 PM Exam: XR FOOT STANDING RT 3V Comparison: Right foot radiography dated 04/06/2022. Technique: Weightbearing frontal bilateral feet, lateral and oblique right foot. History: Foot pain. Questionable Lisfranc injury. Findings: There is slight widening of the Lisfranc joint bilaterally right slightly worse than left. If there is concern for injury to the Lisfranc ligament, would consider MRI correlation. There is loss of the arch of the foot with weightbearing. The hindfoot appears intact. There is a prominent Stieda process of the posterior talus which could cause posterior ankle impingement. There is mild arthritis in the talonavicular joint. The mid foot tarsals, metatarsals and phalanges are intact. No gross soft tissue abnormality. Procedure Note Wenceslao Cosby MD - 04/08/2022 Date: 04/07/2022 3:20 PM Exam: XR FOOT STANDING RT 3V Comparison: Right foot radiography dated 04/06/2022. Technique: Weightbearing frontal bilateral feet, lateral and oblique rightfoot. History: Foot pain. Questionable Lisfranc injury. Findings: There is slight widening of the Lisfranc joint bilaterally rightslightly worse than left. If there is concern for injury to the Lisfrancligament, would consider MRI correlation. There is loss of the arch of thefoot with weightbearing. The hindfoot appears intact. There is a prominentStieda process of the posterior talus which could cause posterior ankleimpingement. There is mild arthritis in the talonavicular joint. The midfoot tarsals, metatarsals and phalanges are intact. No gross soft tissueabnormality. Impression: 1. Pes planus with weightbearing. 2. 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 Stieda process of theposterior talus could cause posterior ankle impingement. 3. Widening of the Lisfranc joint bilaterally right worse than left. Ifthere is concern for injury to the Lisfranc ligament, would consider MRIcorrelation. Ordered By: CRYSTAL CEDENO Interpreted By: Wenceslao Cosby Jr, MD, 04/08/2022 8:23 AM Crystal [facility] Final Result documented in this encounter Visit Diagnoses Diagnosis Sprain of ligament of tarsometatarsal joint of right foot, initial encounter- Primary Right foot pain Pain in limb Lisfranc dislocation, right, initial encounter documented in this encounter Additional Health Concerns Assessment Noted Time PHQ-9 Depression Total Score: 15 022 10:50 AM CDT documented as of this encounter Care Teams Sweeper Driver Relationship Specialty Start Date End Date Crystal Cedeno APNP [address] [place] [address] PCP - General NURSE PRACTITIONER 01/05/22 documented as of this encounter
--- OUTSIDE RECORDS SUMMARY | 2024-10-07 02:48 | XMS_ITS | Encounter Summary ---
Author Organization [facility] Address [address] [place] [address]. [place], [place] [id number] [place] [id number] Care Team Providers Care Entry Level Lab Technician Name Role Phone Miladis Sosa Primary Care Provider + [phone] Reason for Referral * Imaging (Emergency) - Closed Specialty Diagnoses / Procedures Referred By Contac t Referred To Contact RADIOLOGY Procedures CT ABD+PEL W CON Rose Rutledge PA [address] [place] [address] Phone: tel: fax: Referral ID Status Reason Start Date Expiration Date Visits Re quested Visits Authorized [id number] Closed 11/22/2021 12/20/2022 1 1 ISTHENICS INSTRUCTOR Reason for Visit * Reason Comments Wound Infection Encounter Details Date Type Department Care Team (Late st Contact Info) Description 11/22/2021 5:55 PM CALLISTHENICS INSTRUCTOR - 11/22/2021 9:54 PM CALLISTHENICS INSTRUCTOR Emergency [facility] [place] [address] Elpidio Phillips MD [address] [place] [address] Wound Infection Discharge Disposition: Home or Self Care (Routine Discharge) Social History Tobacco Use Types Packs/Day Years [...] Coronavirus/COVID-19? No / Unsure 11/22/2021 2:04 PM CALLISTHENICS INSTRUCTOR documented as of this encounter Last Filed Vital Signs Vital Sign Reading Time Taken Comments Blood Pressure 119/45 11/22/2021 9:00 PM CALLISTHENICS INSTRUCTOR Pulse 56 11/22/2021 9:00 PM CALLISTHENICS INSTRUCTOR Temperature 36.7 ??C (98.1 ??F) 11/22/2021 5:52 PM CS T Respiratory Rate 18 11/22/2021 9:00 PM CALLISTHENICS INSTRUCTOR Oxygen Saturation 98% 11/22/2021 9:00 PM CALLISTHENICS INSTRUCTOR Inhaled Oxygen Concentration - - Weight 129.3 kg (285 lb) 11/22/2021 5:52 PM CALLISTHENICS INSTRUCTOR Height 167.6 cm (5' 6 ) 11/22/2021 5:52 PM CALLISTHENICS INSTRUCTOR Body Mass Index 46 11/22/2021 5:52 PM CALLISTHENICS INSTRUCTOR documented in this encounter Discharge Instructions * Discharge Instructions* Elpidio Phillips MD - 11/22/2021 9:33 PM CALLISTHENICS INSTRUCTOR Emergency Departments (ED) provide medical screening exams and initial stabilizing treatment of emergency medical conditions. Medicine is an inexact science and many conditions cannot be diagnosed orcompletely treated during a single ED visit. Your treating healthcare provider(s) today feel your condition has been stabilized so further care as an outpatient is reasonable. Emergency care does notsubstitute for complete, ongoing, or follow-up care by your primary care physician or business process consultant. Your medication list was reviewed prior to treatment, and at discharge, by the treating provider for the purpose of this outpatient visit only. Please review this entire medication list with your pharmacist, primary care physician, and specialist(s). It is your responsibility to share any new medication instructions you received this visit with your doctor(s). Although no medicine is without risk, your healthcare provider today feels reasonable decisions were made concerning starting new medications and stopping or changing the dosages of your usual medications until you receive follow-up care. Take medications only as directed. Many medications can cause drowsiness, especially those for pain, anxiety, muscle spasms, nausea, and allergies. DO NOT drive, drink alcohol, operate power machinery, or participate in potentially dangerous activities if taking medicines that make you tired. Chronic pain is best managed by pain specialists or primary care physicians, so narcotic refills are not routinely dispensed in the ED. DO NOT take multiple medications containing acetaminophen (Tylenol), such as many narcotic drug combinations and [id number] cold medicines. Your feedback is important to us. Please fill out the survey you will get in the mail. We need yourinput to give you the best care possible! With your feedback we??ll know where we need to focus ourefforts to provide very good service to our patients! ISTHENICS INSTRUCTOR * Attachments The following attachments cannot be sent through Care Everywhere. * Cellulitis (Skin Infection) Discharge Instructions, Adult (Chadian) documented in this encounter Medications at Time of Discharge cephALEXin 500 MG capsule Take 1 capsule (500 mg total) by mouth 3 (three) times daily for 10 days. 30 capsule 11/22/2021 2 diclofenac EC 75 MG tablet Take 1 tablet (75 mg total) by mouth 2 (two) times daily as needed (Pain. Please take with meals). 30 tablet 11/22/2021 2 fluconazole (DIFLUCAN) 150 MG tablet Take 1 tablet (150 mg total) by mouth once for 1 dose. May fill on or after 11/22/2021. Please take 1 tablet, orally, once, at the end of your antibiotic therapy. 1 tablet 12/02/2021 2 FLUoxetine 20 MG capsule Take 60 mg by mouth daily. 11/07/2021 2 sulfamethoxazole -trimethoprim (BACTRIM DS) 800-160 MG tablet Take 1 tablet by mouth 2 (two) times daily for 10 days. 20 tablet 11/22/2021 2 documented as of this encounter ED Notes * Elpidio Phillips MD - 11/22/2021 9:31 PM CST Chief Complaint Chief Complaint Patient presents with ??? Wound Infection History of Present Illness The patient is a very pleasant 30-year-old female examined in the emergency department bed #5. She presents today complaining of abdominal pain and umbilical drainage. The symptoms began the day prior to presentation. The patient was sent by her primary care physician to the emergency department with a concern for an intra-abdominal abscess. The patient complains of occasional flank pain and nausea. She denies any fevers. She has not had any surgeries to her umbilicus. She also complains of malodorous urine. No clear palliative or provoking factors are identified. Quality is as described above. There is no radiation. Severity is moderate. The time course is constant since onset and worsening. Medical History ALLERGIES: Allergies Allergen Reactions ??? Tramadol Other (see comment) Shaky, increased heart rate, sweating. ??? Penicillins Rash and Unknown MEDICATIONS: Prior to Admission medications Medication Sig Start Date End Date Taking? Authorizing Provider cephALEXin 500 MG capsule Take 1 capsule (500 mg total) by mouth 3 (three) times daily for 10 days.11/22/21 12/02/21 Yes Elpidio Phillips MD diclofenac EC 75 MG tablet Take 1 tablet (75 mg total) by mouth 2 (two) times daily as needed (Pain. Please take with meals). 11/22/21 Yes Elpidio Phillips MD fluconazole (DIFLUCAN) 150 MG tablet Take 1 tablet (150 mg total) by mouth once for 1 dose. May fill on or after 11/22/2021. Please take 1 tablet, orally, once, at the end of your antibiotic therapy. 12/02/21 12/02/21 Yes Elpidio Phillips MD sulfamethoxazole-trimethoprim (BACTRIM DS) 800-160 MG tablet Take 1 tablet by mouth 2 (two) times daily for 10 days. 11/22/21 12/02/21 Yes Elpidio Phillips MD FLUoxetine 20 MG capsule Take 60 mg by mouth daily. 11/07/21 Doc Abstract PAST MEDICAL HISTORY: Past Medical History: Diagnosis Date ??? Anxiety ??? Depression PAST SURGICAL HISTORY: Past Surgical History: Procedure Laterality Date ??? CHOLECYSTECTOMY ??? EYE SURGERY Lasic FAMILY HISTORY: Family History Problem Relation Name Age of Onset ??? Anxiety Mother ??? Osteoarthritis Mother ??? Diabetes Father ??? Heart Disease Father ??? Lung Disease Maternal Grandmother ??? Diabetes Maternal Grandmother ??? Diabetes Maternal Grandfather ??? Diabetes Paternal Grandfather ??? Heart Disease Paternal Grandfather SOCIAL HISTORY: Social History Tobacco Use ??? Smoking status: Never Smoker ??? Smokeless tobacco: Never Used Vaping Use ??? Vaping Use: Never used Substance Use Topics ??? Alcohol use: Yes ??? Drug use: Never Review of Systems Review of Systems REVIEW OF SYSTEMS: The patient denies fevers, chills, or sweats. Complains of nausea, denies vomiting, diarrhea, or constipation, complains of abdominal pain. Denies chest pain, shortness of breath, dyspnea on exertion, or palpitations. Denies headache, loss of consciousness, or seizures. Denies dysuria or hematuria. Ten systems reviewed and negative except as described above or in the HPI. Physical Exam Vital 24 Hour Range Most Recent Value Temperature Temp Min: 97.9 ??F (36.6 ??C) Max: 98.1 ??F (36.7 ??C) 98.1 ??F (36.7 ??C) Pulse Pulse Min: 56 Max: 88 56 Respiratory Resp Min: 16 Max: 20 18 Blood Pressure BP Min: 101/59 Max: 126/64 119/45 Pulse Oximetry SpO2 Min: 98 % Max: 100 % 98 % O2 No data recorded Vital Most Recent Value First Value Weight 129.3 kg (285 lb) Weight: 129.3 kg (285 lb) Height 5' 6 (167.6 cm) Height: 5' 6 (167.6 cm) BMI 46 N/A Physical Exam VITALS: Reviewed. The patient does not meet SIRS criteria. GENERAL: The patient is a very pleasant 30-year-old female examined in the Emergency Department. Patient is in no acute distress at the time of my exam. HEENT: Normocephalic, atraumatic. Pupils are PERRL. Eyes focus and track. Sclerae are nonicteric and not injected. The face is symmetric, round, and fully expressive. Hearing is adequate to conversational voice. Ears are without discharge. Nares are grossly patent, and also without discharge. Mucous membranes are moist. NECK: No JVD, tracheal deviation, or subcutaneous emphysema is noted. The bony spine is nontender. CHEST: The thoracic cage is stable to palpation and nontender. LUNGS: Clear to auscultation bilaterally without wheezes, rales or rhonchi. Equal inspiratory and expiratory phases. HEART: Normal rate, regular rhythm. Normal S1 and S2. ABDOMEN: Exam limited by body habitus (the patient's BMI is 46) within that limitation, the patient's abdomen is soft, nontender, and nondistended. No drainage is noted from the umbilicus. No masses,bruits or hepatosplenomegaly are noted. EXTREMITIES: No clubbing, cyanosis, edema, or evidence of trauma is noted. NEURO: No gross focal neuro deficits are appreciated. GCS = 15. No seizure activity is noted in theemergency department. PSYCHIATRIC: The patient's mood, affect and interaction are appropriate to setting. SKIN: Normal color, temperature, and turgor noted throughout. Diagnostic Studies / Procedures ELECTROCARDIOGRAMS: No results found for this visit on 11/22/21. LABORATORY STUDIES: Results for orders placed or performed during the hospital encounter of 11/22/21 COMPREHENSIVE METABOLIC PANEL Result Value Ref Range GLUCOSE 83 70 - 99 MG/DL BUN 16 7 - 18 MG/DL CREATININE S/P/B 0.58 0.55 - 1.02 MG/DL SODIUM 138 136 - 145 MMOL/L POTASSIUM 3.7 3.5 - 5.1 MMOL/L CHLORIDE S/P/B 109 (H) 100 - 108 MMOL/L CO2 24.7 21 - 32 MMOL/L CALCIUM 9.0 8.5 - 10.1 MG/DL BILIRUBIN TOTAL S/P/B 0.4 0.2 - 1.2 MG/DL TOTAL PROTEIN S/P/B 6.7 6.4 - 8.2 G/DL ALBUMIN S/P/B 3.7 3.4 - 5.0 G/DL AST 17 15 - 37 U/L ALT 20 14 - 55 U/L ALKALINE PHOSPHATASE S/P/B 60 50 - 136 U/L ANION GAP 4.3 (L) 5 - 15 MMOL/L BUN CREATININE RATIO 27.4 (H) 6 - 26 A/G RATIO 1.2 1.0 - 2.0 RATIO eGFR Non-Afr. Amer. >90 >90 ML/MIN/1.73 M2 eGFR Afr. Amer. >90 >90 ML/MIN/1.73 M2 LIPASE Result Value Ref Range LIPASE 97 73 - 393 UNITS/L CBC W/DIFF AUTOMATED Result Value Ref Range WBC 6.7 4.5 - 11.0 x10'3/uL RBC 3.74 (L) 4.20 - 5.40 x10'6/uL HGB 11.7 (L) 12.0 - 16.0 G/DL HCT 35.0 (L) 38.0 - 48.0 % MCV 93.6 81.0 - 99.0 FL MCH 31.3 (H) 27.0 - 31.0 PG MCHC 33.4 32.0 - 36.0 G/DL RDW 11.9 11.5 - 14.5 % PLT 205 130 - 400 x10'3/uL MPV 9.8 9.3 - 12.2 FL DIFFERENTIAL TYPE AUTOMATED DIFFERENTIAL NEUTROPHILS 48.6 % LYMPHOCYTES 42.2 % MONOCYTES 7.2 % EOSINOPHILS 1.3 % BASOPHILS 0.4 % IMMATURE GRANS 0.3 % ABS. NEUTROPHILS TOTAL 3.26 1.80 - 7.70 x10'3/uL ABS. LYMPHOCYTES 2.83 1.00 - 4.80 x10'3/uL ABS. MONOCYTES 0.48 0.24 - 0.86 x10'3/uL ABS. EOSINOPHILS 0.09 0.04 - 0.36 x10'3/uL ABS. BASOPHILS 0.03 0.01 - 0.08 x10'3/uL ABS. IMMATURE GRANULOCYTES 0.02 0.00 - 0.49 x10'3/uL URINALYSIS WI REFLEX TO CULTURE Specimen: URINE, CLEAN CATCH Result Value Ref Range Specimen Type URINE CLEAN CATCH COLOR (U) LIGHT YELLOW TRANSPARENCY CLEAR Specific [place] (U) 1.017 1.001 - 1.030 U PH 5.5 5.0 - 9.0 LEUKOCYTE ESTERASE NEGATIVE NEGATIVE NITRITES NEGATIVE NEGATIVE PROTEIN (U) NEGATIVE <30 MG/DL URINE GLUCOSE NORMAL NORMAL MG/DL U KETONES NEGATIVE NEGATIVE MG/DL UROBILINOGEN NORMAL NORMAL MG/DL BILIRUBIN (U) NEGATIVE NEGATIVE MG/DL BLOOD NEGATIVE NEGATIVE CULTURE & SENSITIVITY INDICATED? CULTURE IS NOT INDICATED MUCUS RARE /LPF WBC/HPF 1 <6 /HPF RBC/HPF 5 <6 /HPF SQUAMOUS EPITHELIALS RARE /HPF CREATININE WHOLE BLOOD Result Value Ref Range CREATININE WHOLE BLOOD 0.6 0.60 - 1.10 mg/dL POCT urine Result Value Ref Range URINE HCG TEST Negative NEGATIVE Internal Control performed as Expected? Valid VALID IMAGING STUDIES: CT ABD+PEL W CON Final Result by User, [id number] (11/22 2032) EXAMINATION: CT Abdomen and Pelvis with contrast EXAM DATE/TIME: 11/22/2021 7:36 PM REASON FOR EXAM: Mid abdominal pain. Flank pain. Umbilical discharge. COMPARISON: 09/03/2009 TECHNIQUE: Computed tomography of the abdomen and pelvis was performed after administration of intravenous contrast, 100 mL Isovue 370. Automated exposure control was utilized for dose reduction. FINDINGS: Abdomen: Prior cholecystectomy. Mild postcholecystectomy prominence of the biliary system. The liver, spleen, pancreas, adrenal glands, aorta and IVC are unremarkable. Small cyst of the right kidney inferior pole. Moderate retained stool throughout the colon. No bowel obstruction. The appendix is unremarkable. Small bowel is unremarkable. No adenopathy is demonstrated. Pelvis: IUD is noted within the uterus but position is abnormal. The device extends into the myometrium posteriorly toward the right with the right arm of the device potentially extending through to the serosal layer. The bladder and rectum are unremarkable. There is a corpus luteum cyst of the right ovary. No significant free pelvic fluid or adenopathy. Other findings: Skin thickening of the umbilicus with subjacent stranding compatible with umbilical cellulitis. No abscess or drainable fluid collection is demonstrated. Visualized lung bases are clear. No acute fracture or destructive bone lesion. Degenerative changes most severe in the spine at L5-S1. =====IMPRESSION:===== 1. Umbilical cellulitis. No abscess or drainable fluid collection. 2. Moderate retained stool in the colon. 3. IUD appears malpositioned, migrated into the posterior wall of the uterus. Consider outpatient pelvic ultrasound. 4. Prior cholecystectomy. 5. Small right renal cyst. Ordered By: ORSE RUTLEDGE Interpreted By: Wenceslao Cruz MD, 11/22/2021 8:17 PM [employer] (MIPS) Quality Measure/Emergency Medicine Qualified Clinical Data Registry (E-CPR) Data: Not applicable ED Course / Medical Decision Making I estimate there is LOW risk for SEPSIS, SEVERE CELLULITIS REQUIRING OBSERVATION or ADMISSION, CHARLENE MAGUI SYNDROME, OR TOXIC EPIDERMAL NECROLYSIS, thus I consider the discharge disposition reasonable. They do not appear significantly and systemically ill. There has been no applicable extension of their lesion during their ED stay. Also, there is no evidence of sepsis or toxicity. We have discussed the diagnosis and risks, and we agree with discharging home to follow- up with their primary doctor. We also discussed returning to the Emergency Department immediately if new or worsening symptoms occur. We have discussed the symptoms which are most concerning (e.g.,worsening pain, systemic symptoms, extending lesions, erysipelas, difficulty breathing, weakness or dizziness) that necessitateimmediate return. Clinical Impression Cellulitis, umbilical (Primary) Disposition: Discharge I dictated portions of this note using [employer] speech recognition software. Occasional wrong word or sound-alike substitutions may have occurred due to the inherent limitations of voice recognition software. Please read the chart carefully and recognize, using context, where the substitutions may have occurred. If there are any questions, please contact me via [employer] or other HIPAA compliant communication medium for clarification. Elpidio Phillips MD 11/23/[address]26 ISTHENICS INSTRUCTOR * Becky Diaz RN - 11/22/2021 6:35 PM CST Draining from umbilicus earlier today, scant amount of drainage now, abd soft to touch ISTHENICS INSTRUCTOR * Becky Diaz RN - 11/22/2021 6:[address], with POC crea and stated that there is no chance of , ISTHENICS INSTRUCTOR * YANELIS Churchill - 11/22/2021 5:58 PM CST [place], [place] EMERGENCY DEPARTMENT ENCOUNTER Medical Screening Examination 11/22/21 5:58 PM Chief Complaint : Wound Infection HPI : Leti Soto is a 30-year-old female who presents for abdominal pain and umbilical drainage. Sent by pcp concerned for possible intraabdominal abscess. C/o of flank pain + nausea. Denies fevers, cp, sob. Some malodorous urine. No pelvic or vaginal complaints. Vital Signs: Filed Vitals: 11/22/21 1752 BP: (!) 114/94 Pulse: 80 Resp: 20 Temp: 98.1 ??F (36.7 ??C) TempSrc: Oral SpO2: 100% Weight: 129.3 kg (285 lb) Height: 5' 6 (1.676 m) Physical exam: A brief physical exam was completed to facilitate/expedite patient care. [place] findings include: soft abdomen, no obvious dc seen in triage from umbilicus Plan: Labs & Imaging was ordered to facilitate patient care., Antiemetics were ordered to faciliate patient care. and IV pepcid YANELIS CHURCHILL 11/22/2021 YANELIS Churchill 11/22/21 175 Cosigned by Panda Rosenberg MD at 11/22/2021 6:47 PM CALLISTHENICS INSTRUCTOR ISTHENICS INSTRUCTOR ISTHENICS INSTRUCTOR * Josefa Steward RN - 11/22/2021 5:56 PM CST Ambulates to triage. Reports umbilical pain starting yesterday. Drainage today with odor. Denies fever/ +chills. Also c/o bilat flank pain. +nausea. ISTHENICS INSTRUCTOR * Barbie Wiley RN - 11/22/2021 5:55 PM CST Bed: EMS1 Expected date: Expected time: Means of arrival: Comments: ISTHENICS INSTRUCTOR documented in this encounter Plan of Treatment Not on file documented as of this encounter Procedures Procedure Name Priority Date/Time Associated Diagnosis Comments CT ABD+PEL W CON STAT 11/22/2021 7:43 PM CALLISTHENICS INSTRUCTOR POCT URINE (BACK OFFICE) STAT 11/22/2021 7:30 PM CALLISTHENICS INSTRUCTOR URINALYSIS WI REFLEX TO CULTURE STAT 11/22/2021 7:29 PM CALLISTHENICS INSTRUCTOR COMPREHENSIVE METABOLIC PANEL STAT 11/22/2021 6:23 PM CALLISTHENICS INSTRUCTOR CBC W/DIFF AUTOMATED STAT 11/22/2021 6:23 PM CALLISTHENICS INSTRUCTOR LIPASE STAT 11/22/2021 6:23 PM CALLISTHENICS INSTRUCTOR CREATININE WHOLE BLOOD Routine 6:21 PM CALLISTHENICS INSTRUCTOR documented in this encounter Results * CT ABD+PEL W CON (11/22/2021 7:43 PM CALLISTHENICS INSTRUCTOR) Anatomical Region Laterality Modality Abdomen Computed Tomogra phy 11/22/2021 8:17 PM CALLISTHENICS INSTRUCTOR Impressions 11/22/2021 8:32 PM CALLISTHENICS INSTRUCTOR =====IMPRESSION:===== 1. Umbilical cellulitis. No abscess or drainable fluid collection. 2. Moderate retained stool in the colon. 3. IUD appears malpositioned, migrated into the posterior wall of the uterus. Consider outpatient pelvic ultrasound. 4. Prior cholecystectomy. 5. Small right renal cyst. Ordered By: ROSE RUTLEDGE Interpreted By: Wenceslao Cruz MD, 11/22/2021 8:17 PM Narrative 11/22/2021 8:32 PM CALLISTHENICS INSTRUCTOR EXAMINATION: CT Abdomen and Pelvis with contrast EXAM DATE/TIME: 11/22/2021 7:36 PM REASON FOR EXAM: Mid abdominal pain. Flank pain. Umbilical discharge. COMPARISON: 09/03/2009 TECHNIQUE: Computed tomography of the abdomen and pelvis was performed after administration of intravenous contrast, 100 mL Isovue 370. Automated exposure control was utilized for dose reduction. FINDINGS: Abdomen: Prior cholecystectomy. Mild postcholecystectomy prominence of the biliary system. The liver, spleen, pancreas, adrenal glands, aorta and IVC are unremarkable. Small cyst of the right kidney inferior pole. Moderate retained stool throughout the colon. No bowel obstruction. The appendix is unremarkable. Small bowel is unremarkable. No adenopathy is demonstrated. Pelvis: IUD is noted within the uterus but position is abnormal. The device extends into the myometrium posteriorly toward the right with the right arm of the device potentially extending through to the serosal layer. The bladder and rectum are unremarkable. There is a corpus luteum cyst of the right ovary. No significant free pelvic fluid or adenopathy. Other findings: Skin thickening of the umbilicus with subjacent stranding compatible with umbilical cellulitis. No abscess or drainable fluid collection is demonstrated. Visualized lung bases are clear. No acute fracture or destructive bone lesion. Degenerative changes most severe in the spine at L5-S1. Procedure Note [place], Wenceslao Walters MD - 11/22/2021 EXAMINATION: CT Abdomen and Pelvis with contrast EXAM DATE/TIME: 11/22/2021 7:36 PM REASON FOR EXAM: Mid abdominal pain. Flank pain. Umbilical discharge. COMPARISON: 09/03/2009 TECHNIQUE: Computed tomography of the abdomen and pelvis was performedafter administration of intravenous contrast, 100 mL Isovue 370. Automatedexposure control was utilized for dose reduction. FINDINGS: Abdomen: Prior cholecystectomy. Mild postcholecystectomy prominence of thebiliary system. The liver, spleen, pancreas, adrenal glands, aorta and IVCare unremarkable. Small cyst of the right kidney inferior pole. Moderateretained stool throughout the colon. No bowel obstruction. The appendix isunremarkable. Small bowel is unremarkable. No adenopathy is demonstrated. Pelvis: IUD is noted within the uterus but position is abnormal. Thedevice extends into the myometrium posteriorly toward the right with theright arm of the device potentially extending through to the serosallayer. The bladder and rectum are unremarkable. There is a corpus luteumcyst of the right ovary. No significant free pelvic fluid or adenopathy. Other findings: Skin thickening of the umbilicus with subjacent strandingcompatible with umbilical cellulitis. No abscess or drainable fluidcollection is demonstrated. Visualized lung bases are clear. No acutefracture or destructive bone lesion. Degenerative changes most severe inthe spine at L5-S1. =====IMPRESSION:===== 1. Umbilical cellulitis. No abscess or drainable fluid collection. 2. Moderate retained stool in the colon. 3. IUD appears malpositioned, migrated into the posterior wall of theuterus. Consider outpatient pelvic ultrasound. 4. Prior cholecystectomy. 5. Small right renal cyst. Ordered By: ROSE RUTLEDGE Interpreted By: Wenceslao Cruz MD, 11/22/2021 8:[address] Final Result * POCT urine (11/22/2021 7:30 PM CALLISTHENICS INSTRUCTOR) URINE HCG TEST Negative NEGATIVE Internal Control performed as Expected? Valid VALID Rose [place] POINT OF CARE TEST ORDERABLES Final Result * URINALYSIS WI REFLEX TO CULTURE (11/22/2021 7:29 PM CALLISTHENICS INSTRUCTOR) SPECIMEN TYPE URINE CLEAN CATCH 11/22/2021 7:30 PM CALLISTHENICS INSTRUCTOR [facility] COLOR (U) LIGHT YELLOW 11/22/2021 7:37 PM CALLISTHENICS INSTRUCTOR [facility] TRANSPARENCY CLEAR 11/22/2021 7:37 PM CALLISTHENICS INSTRUCTOR [facility] SPECIFIC GRAVITY (U) 1.017 1.001 - 1.030 11/22/2021 7:37 PM CALLISTHENICS INSTRUCTOR [facility] U PH 5.5 5.0 - 9.0 11/22/2021 7:37 PM [facility] LEUKOCYTES (U) NEGATIVE NEGATIVE 11/22/2021 7:37 PM [facility] NITRITES NEGATIVE NEGATIVE 11/22/2021 7:37 PM [facility] PROTEIN (U) NEGATIVE <30 MG/DL 11/22/2021 7:37 PM CALLISTHENICS INSTRUCTOR [facility] URINE GLUCOSE NORMAL NORMAL MG/DL 11/22/2021 7:37 PM CALLISTHENICS INSTRUCTOR [facility] KETONES MG/DL (U) NEGATIVE NEGATIVE MG/DL 11/22/2021 7:37 PM CALLISTHENICS INSTRUCTOR [facility] UROBILINOGEN NORMAL NORMAL MG/DL 11/22/2021 7:37 PM CALLISTHENICS INSTRUCTOR [facility] BILIRUBIN (U) NEGATIVE NEGATIVE MG/DL 11/22/2021 7:37 PM CALLISTHENICS INSTRUCTOR [facility] BLOOD (U) NEGATIVE NEGATIVE 11/22/2021 7:37 PM [facility] CULTURE & SENSITIVITY INDICATED? CULTURE IS NOT INDICATED 11/22/2021 7:37 PM CALLISTHENICS INSTRUCTOR [facility] MUCUS RARE /LPF 11/22/2021 7:37 PM CALLISTHENICS INSTRUCTOR [facility] WBC/HPF 1 <6 /HPF 11/22/2021 7:37 PM CALLISTHENICS INSTRUCTOR [facility] RBC/HPF 5 <6 /HPF 11/22/2021 7:37 PM CALLISTHENICS INSTRUCTOR [facility] SQUAMOUS EPITHELIALS RARE /HPF 11/22/2021 7:37 PM CALLISTHENICS INSTRUCTOR [facility] URINE SPECIMEN OBTAINED BY CLEAN CATCH PROCEDURE / Unknown 11/22/2021 7:29 PM CALLISTHENICS INSTRUCTOR us Rose HILARIO URINE ORDERABLES Final Result [facility] [address] [place] [address], * (ABNORMAL) CBC W/DIFF AUTOMATED (11/22/2021 6:23 PM CALLISTHENICS INSTRUCTOR) WBC 6.7 4.5 - 11.0 x10'3/uL 11/22/2021 6:40 PM [facility] RBC 3.74(L) 4.20 - 5.40 x10'6/uL 11/22/2021 6:40 PM [facility] HGB 11.7(L) 12.0 - 16.0 G/DL 11/22/2021 6:40 PM [facility] HCT 35.0(L) 38.0 - 48.0 % 11/22/2021 6:40 PM [facility] MCV 93.6 81.0 - 99.0 FL 11/22/2021 6:40 PM [facility] MCH 31.3(H) 27.0 - 31.0 PG 11/22/2021 6:40 PM [facility] MCHC 33.4 32.0 - 36.0 G/DL 11/22/2021 6:40 PM [facility] RDW 11.9 11.5 - 14.5 % 11/22/2021 6:40 PM [facility] PLT 205 130 - 400 x10'3/uL 11/22/2021 6:40 PM [facility] MPV 9.8 9.3 - 12.2 FL 11/22/2021 6:40 PM [facility] DIFFERENTIAL TYPE AUTOMATED DIFFERENTIAL 11/22/2021 6:40 PM [facility] NEUTROPHILS % 48.6 % 11/22/2021 6:40 PM [facility] LYMPHOCYTES % 42.2 % 11/22/2021 6:40 PM [facility] MONOCYTES % 7.2 % 11/22/2021 6:40 PM [facility] EOSINOPHILS 1.3 % 11/22/2021 6:40 PM CALLISTHENICS INSTRUCTOR [facility] BASOPHILS 0.4 % 11/22/2021 6:40 PM CALLISTHENICS INSTRUCTOR [facility] IMMATURE GRANS % 0.3 % 11/22/19 6:40 PM CALLISTHENICS INSTRUCTOR [facility] ABS. NEUTROPHILS TOTAL 3.26 1.80 - 7.70 x10'3/uL 11/22/2021 6:40 PM CALLISTHENICS INSTRUCTOR [facility] ABS. LYMPHOCYTES 2.83 1.00 - 4.80 x10'3/uL 11/22/2021 6:40 PM CALLISTHENICS INSTRUCTOR [facility] ABS. MONOCYTES 0.48 0.24 - 0.86 x10'3/uL 11/22/2021 6:40 PM CALLISTHENICS INSTRUCTOR [facility] ABS. EOSINOPHILS 0.09 0.04 - 0.36 x10'3/uL 11/22/2021 6:40 PM CALLISTHENICS INSTRUCTOR [facility] ABS. BASOPHILS 0.03 0.01 - 0.08 x10'3/uL 11/22/2021 6:40 PM CALLISTHENICS INSTRUCTOR [facility] ABS. IMMATURE GRANULOCYTES 0.02 0.00 - 0.49 x10'3/uL 11/22/2021 6:40 PM CALLISTHENICS INSTRUCTOR [facility] 11/22/2021 6:23 PM CALLISTHENICS INSTRUCTOR us Rose HILARIO LABORATORY Final Result [facility] [address] [place] [address], * LIPASE (11/22/2021 6:23 PM CALLISTHENICS INSTRUCTOR) LIPASE 97 73 - 393 UNITS/L 11/22/2021 7:00 PM CALLISTHENICS INSTRUCTOR [facility] 11/22/2021 6:23 PM [facility] Rose HILARIO LABORATORY Final Result [facility] [address] [place] [address], [place] [phone] * (ABNORMAL) COMPREHENSIVE METABOLIC PANEL (11/22/2021 6:23 PM CALLISTHENICS INSTRUCTOR) [facility] GLUCOSE 83 70 - 99 MG/DL 11/22/2021 7:00 PM [facility] BUN 16 7 - 18 MG/DL 11/22/2021 7:00 PM [facility] CREATININE S/P/B 0.58 0.55 - 1.02 MG/DL 11/22/2021 7:00 PM [facility] SODIUM S/P/B 138 136 - 145 MMOL/L 11/22/2021 7:00 PM [facility] POTASSIUM S/P/B 3.7 3.5 - 5.1 MMOL/L 11/22/2021 7:00 PM [facility] CHLORIDE S/P/B 109(H) 100 - 108 MMOL/L 11/22/2021 7:00 PM [facility] CO2 24.7 21 - 32 MMOL/L 11/22/2021 7:00 PM [facility] CALCIUM S/P/B 9.0 8.5 - 10.1 MG/DL 11/22/2021 7:00 PM [facility] BILIRUBIN TOTAL S/P/B 0.4 0.2 - 1.2 MG/DL 11/22/2021 7:00 PM [facility] Comment: THIS ASSAY IS NOT RECOMMENDED FOR PATIENTS UNDERGOING TREATMENT WITH ELTROMBOPAG DUE TO THE POTENTIAL FOR FALSELY ELEVATED RESULTS. TOTAL PROTEIN S/P/B 6.7 6.4 - 8.2 G/DL 11/22/2021 7:00 PM [facility] ALBUMIN S/P/B 3.7 3.4 - 5.0 G/DL 11/22/2021 7:00 PM [facility] AST 17 15 - 37 U/L 11/22/2021 7:00 PM [facility] ALT 20 14 - 55 U/L 11/22/2021 7:00 PM [facility] ALKALINE PHOSPHATASE S/P/B 60 50 - 136 U/L 11/22/2021 7:00 PM [facility] ANION GAP 4.3(L) 5 - 15 MMOL/L 11/22/2021 7:00 PM [facility] BUN CREATININE RATIO 27.4(H) 6 - 26 11/22/2021 7:00 PM [facility] A/G RATIO 1.2 1.0 - 2.0 RATIO 11/22/2021 7:00 PM [facility] EGFR NON-AFR. AMER. >90 >90 ML/MIN/1.7 3 M2 11/22/2021 7:00 PM [facility] EGFR AFR. AMER. >90 >90 ML/MIN/1.7 3 M2 11/22/2021 7:00 PM [facility] Comment: NOTE: eGFR is not calculated for patients <18 years of age. This is an estimated GFR (CKD EPI) and should not be used for calculating drug doses. 11/22/2021 6:23 PM CALLISTHENICS INSTRUCTOR Roes HILARIO LABORATORY Final Result [facility] [address] [place] [address], [place] [phone] * CREATININE WHOLE BLOOD (11/22/2021 6:21 PM CALLISTHENICS INSTRUCTOR) CREATININE WHOLE BLOOD 0.6 0.60 - 1.10 mg/dL 11/22/2021 6:25 PM CALLISTHENICS INSTRUCTOR [facility] 11/22/2021 6:21 PM CALLISTHENICS INSTRUCTOR us Attending Physician Emergency MD LABORATORY Final Result [facility] [address] [place] [address], [place] [phone] documented in this encounter Visit Diagnoses Diagnosis Cellulitis, umbilical- Primary Cellulitis and abscess of trunk documented in this encounter Administered Medications Inactive Administered Medications - up to 3 most recent administrations Medication Order MAR Action Action Date Dose Rate Site famotidine (PEPCID) injection 20 mg 20 mg, Intravenous, Once, 1 dose, On Mon11/22/21 at 1800, IV Push over 2 minutes Given 11/22/2021 6:30 PM CALLISTHENICS INSTRUCTOR 20 mg iopamidol (ISOVUE-370) 76 % injection 100 mL 100 mL, Intravenous, IMG once as needed, Contrast, 1 dose, Starting on Mon11/22/21 at 1943, Until Mon11/22/21 at 1943 Given 11/22/2021 7:43 PM CALLISTHENICS INSTRUCTOR 100 mLs Left Arm morphine injection 2 mg 2 mg, Intravenous, Once, 1 dose, On Mon11/22/21 at 1830 Given 11/22/2021 6:30 PM CALLISTHENICS INSTRUCTOR 2 mg ondansetron (ZOFRAN) injection 4 mg 4 mg, Intravenous, Once, 1 dose, On Mon11/22/21 at 1800, IV push over 2-5 minutes. Given 11/22/2021 6:30 PM CALLISTHENICS INSTRUCTOR 4 mg documented in this encounter Active and Recently Administered Medications Times are shown in CALLISTHENICS INSTRUCTOR. Scheduled Medication Order 11/20/2021 11/21/2021 11/22/2021 famotidine (PEPCID) injection 20 mg (COMPLETED) 20 mg, Intravenous, Once, 1 dose, On Mon11/22/21 at 1800, IV Push over 2 minutes 1830 (Given - Provid er: Barbie Wiley RN - Comment: no scanner in EMS room) morphine injection 2 mg (COMPLETED) 2 mg, Intravenous, Once, 1 dose, On Mon11/22/21 at 1830 1830 (Given - Provid er: Barbie Wiley RN - Comment: No scanner in EMS room) ondansetron (ZOFRAN) injection 4 mg (COMPLETED) 4 mg, Intravenous, Once, 1 dose, On Mon11/22/21 at 1800, IV push over 2-5 minutes. 1830 (Given - Provid er: Barbie Wiley RN - Comment: no scanner in EMS room) PRN Medication Order 11/20/2021 11/21/2021 11/22/2021 iopamidol (ISOVUE-370) 76 % injection 100 mL (COMPLETED) 100 mL, Intravenous, IMG once as needed, Contrast, 1 dose, Starting on Mon11/22/21 at 1943, Until Mon11/22/21 at 1943 1943 (Given - Provid er: Tanya Marques, RTR) documented in this encounter Additional Health Concerns Assessment Noted Time PHQ-9 Depression Total Score: 0 11/22/19 2:38 PM CALLISTHENICS INSTRUCTOR documented as of this encounter Care Teams Entry Level Lab Technician Relationship Specialty Start [place] [address] [place] [address] PCP - General PHYSICIAN EXHIBITS COORDINATOR 02/10/20 01/04/22 documented as of this encounter
--- OUTSIDE RECORDS SUMMARY | 2024-10-07 02:48 | XMS_ITS | Encounter Summary ---
Author Organization [facility] Address [address] [place] [address]. [place], [place] [address] [place] [address] Care Team Providers Care Snowboard Instructor Name Role Phone Crystal Cedeno Primary Care Provider [phone] Reason for Visit * Reason Comments Med Refills Encounter Details Date Type Department Care Team (Late st Contact Info) Description 10/26/2022 9:00 AM MULTI SPINDLE OPERATOR Office Visit [facility] Family and Sports Medicine - [place] [address] [place] [address] Crystal Cedeno APNP [address] [place] [address] Med Refills Social History Tobacco Use Types Packs/Day Years [...] Coronavirus/COVID-19? No / Unsure 10/26/2022 8:19 AM MULTI SPINDLE OPERATOR documented as of this encounter Last Filed Vital Signs Vital Sign Reading Time Taken Comments Blood Pressure 126/84 10/26/2022 9:07 AM MULTI SPINDLE OPERATOR Pulse 83 10/26/2022 9:07 AM MULTI SPINDLE OPERATOR Temperature 36.6 ??C (97.8 ??F) 10/26/2022 9:07 AM CS T Respiratory Rate 19 10/26/2022 9:07 AM MULTI SPINDLE OPERATOR Oxygen Saturation 100% 10/26/2022 9:07 AM MULTI SPINDLE OPERATOR Inhaled Oxygen Concentration - - Weight 155.6 kg (343 lb) 10/26/2022 9:07 AM MULTI SPINDLE OPERATOR Height 167.6 cm (5' 6 ) 10/26/2022 9:07 AM MULTI SPINDLE OPERATOR Body Mass Index 55.36 10/26/2022 9:07 AM MULTI SPINDLE OPERATOR documented in this encounter Progress Notes * Crystal Cedeno RAMOBEKAH - 10/26/2022 9:00 AM CST Images from the original note were not included. Office Note Reason for Visit: Med Refills History of Present Illness: Here for medication refill on phentermine. Pt is eating a healthy diet and is exercising. Pt is feeling well with no side effects. Pt has gained 2 lbs in the past month. CSA signed 01/05/22. PDMP reviewed. Pt is working with specialist to try to have gastric sleeve surgery. She has had preoperative visit and would like to proceed. She needs medical clearance for surgery. Discussed with patient stopping phentermine 2 weeks before any procedures. Will try to switch to Wegovy until surgery. ROS: Review of Systems Constitutional: Negative for [...] MG, IU), , Disp: , Rfl: ??? phentermine (ADIPEX-P) 37.5 MG tablet, Take 1 tablet (37.5 mg total) by mouth every morning before breakfast for 30 days., Disp: 30 tablet, Rfl: 0 ??? semaglutide-weight management (WEGOVY) 0.5 mg/dose injection (PEN), Inject 0.5 mg into the skinonce a week., Disp: 2 mL, Rfl: 1 Allergies: Allergies Allergen Reactions ??? Tramadol Other [...] Tenderness: There is no abdominal tenderness. Comments: obese Musculoskeletal: General: Normal range of motion. Lymphadenopathy: Cervical: No cervical adenopathy. Skin: General: Skin is warm and dry. Findings: No rash. Neurological: Mental Status: She is alert and oriented to person, place, and time. Cranial Nerves: No cranial nerve deficit. Gait: Gait is intact. Psychiatric: Mood and Affect: Mood and affect normal. Cognition and Memory: Memory normal. Judgment: Judgment normal. Filed Vitals: 10/26/22 0907 BP: 126/84 Pulse: 83 Resp: 19 Temp: 97.8 ??F (36.6 ??C) SpO2: 100% Weight: (!) 155.6 kg (343 lb) Height: 5' 6 (1.676 m) Body mass index is 55.36 kg/m??. Diagnoses/Plan: 1. Class 3 severe obesity due to excess calories without serious comorbidity with body mass index (BMI) of 50.0 to 59.9 in adult ([facility]) phentermine (ADIPEX-P) 37.5 MG tablet semaglutide-weight management (WEGOVY) 0.5 mg/dose injection (PEN) 2. Weight loss counseling, encounter for Medications Discontinued During This Encounter Medication Reason ??? Phentermine HCl 30 MG Cap ??? tirzepatide (MOUNJARO) 2.5 MG/0.5ML injection Discussion: Start Wegovy. Pt may continue phentermine but hold 2 weeks prior to any procedures. Discussed food tracking eva and setting weight loss goal of that is realistic and will help keep the weight off store leader such as 12 pounds in 12 weeks. Monitor portions carefully and plan meals and advance. Increase increase daily activity level and walk for exercise. Watch intake of carbs and sugars. Increase daily water intake. Monitor heart rate and blood pressure. Follow-up in 3 months. DODIE LIZ 10/26/2022 I SPINDLE OPERATOR documented in this encounter Plan of Treatment Not on file documented as of this encounter Visit Diagnoses Diagnosis Class 3 severe obesity due to excess calories without serious comorbidity with body mass index (BMI) of 50.0 to 59.9 in adult ([facility])- Primary Weight loss counseling, encounter for Dietary surveillance and counseling documented in this encounter Additional Health Concerns Assessment Noted Time PHQ-9 Depression Total Score: 15 022 10:50 AM CDT documented as of this encounter Care Teams Snowboard Instructor Relationship Specialty Start Date End Date Crystal Cedeno APNP [address] [place] [address] PCP - General NURSE PRACTITIONER 01/05/22 documented as of this encounter
--- OUTSIDE RECORDS SUMMARY | 2024-10-07 02:48 | XMS_ITS | Encounter Summary ---
Author Organization [facility] Address [address] [place] [address]. [place], [place] [address] [place] [address] Care Team Providers Care Watch Guard Gate Name Role Phone Crystal Cedeno Primary Care Provider [phone] Encounter Details Date Type Department Care Team (Late st Contact Info) Description 02/23/2022 MyCBapult Message Enc [facility] Family and Sports Medicine - [place] [address] [place] [address] Crystal Cedeno APNP [address] [place] [address] Low energy Social History Tobacco Use Types Packs/Day Years [...] suspected to have Coronavirus/COVID-19? No / Unsure 02/09/2022 8:10 AM CDT documented as of this encounter Progress Notes * DODIE Bal - 02/23/2022 6:53 PM CDTFrom: Leti Soto To: Crystal Cedeno Sent: 02/23/2022 11:51 AM CDT Subject: Low energy I have been noticing over the last couple weeks that around 1-3pm (somewhere in that time frame) pretty much everyday I feel extremely low energy. I feel overly exhausted-sometime sleepy but most of the times just low low energy/mood. I have felt this way at home on my days off, at work, and on theweekends. Any thoughts/id eas? Could this be related to my vyvanse at all? Just wanting to troubleshoot a little. It???s been a bit of a mood downer too feeling like that. documented in this encounter Plan of Treatment Not on file documented as of this encounter Visit Diagnoses Not on filedocumented in this encounter Additional Health Concerns Assessment Noted Time PHQ-9 Depression Total Score: 15 022 10:50 AM CDT documented as of this encounter Care Teams Watch Guard Gate Relationship Specialty Start Date End Date Crystal Cedeno APNP [address] [place] [address] PCP - General NURSE PRACTITIONER 01/05/22 documented as of this encounter
--- OUTSIDE RECORDS SUMMARY | 2024-10-07 02:48 | XMS_ITS | Encounter Summary ---
Author Organization [facility] Address [address] [place] [address]. [place], [place] [address] [place] [address] Care Team Providers Care Track Walker Name Role Phone Crystal Cedeno Primary Care Provider [phone] Encounter Details Date Type Department Care Team (Late st Contact Info) Description 05/08/2022 [employer] Message Enc [facility] Family and Sports Medicine - [place] [address] [place] [address] Crystal Cedeno APNP [address] [place] [address] My appointment 05/09 Social History Tobacco Use Types Packs/Day Years [...] encounter Progress Notes * DODIE Bal - 05/09/2022 11:16 AM CDTFrom: Leti Soto To: Crystal Cedeno Sent: 05/08/2022 8:59 PM CDT Subject: My appointment 05/09 Hello, I have an appointment on 05/09 (tomorrow). I tried canceling the appointment but it???s not office hours. I have been running a fever off and on all day today with some body chills. I don???t think it???s a good idea to come into the office. This appointment was a medication check. Can you refill itstill a nd I make another appointment for later this week or next? Thank you -Yesenia :) documented in this encounter Plan of Treatment Not on file documented as of this encounter Visit Diagnoses Diagnosis Attention deficit hyperactivity disorder (ADHD), combined type documented in this encounter Additional Health Concerns Assessment Noted Time PHQ-9 Depression Total Score: 15 022 10:50 AM CDT documented as of this encounter Care Teams Track Walker Relationship Specialty Start Date End Date Crystal Cedeno APNP [address] [place] [address] PCP - General NURSE PRACTITIONER 01/05/22 documented as of this encounter
--- OUTSIDE RECORDS SUMMARY | 2024-10-07 02:48 | XMS_ITS | Encounter Summary ---
Author Organization [facility] Address [address] [place] [address]. [place], [place] [address] [place] [address] Care Team Providers Care Bank Secrecy Act Officer Name Role Phone Crystal Cedeno Primary Care Provider [phone] Encounter Details Date Type Department Care Team (Late st Contact Info) Description 04/08/2022 Cross Currentt Message Enc [facility] Medical Group Family and Sports Medicine - [place] [address] [place] [address] Crystal Cedeno APNP [address] [place] [address] Ortho return call Social History Tobacco Use Types Packs/Day Years [...] documented as of this encounter Care Teams Bank Secrecy Act Officer Relationship Specialty Start Date End Date Crystal Cedeno APNP [address] [place] [address] PCP - General NURSE PRACTITIONER 01/05/22 documented as of this encounter
--- OUTSIDE RECORDS SUMMARY | 2024-10-07 02:48 | XMS_ITS | Encounter Summary ---
Author Organization [facility] Address [address] [place] [address]. [place], [place] [address] [place] [address] Care Team Providers Care Marketing Operations Coordinator Name Role Phone Crystal Cedeno Primary Care Provider [phone] Encounter Details Date Type Department Care Team (Latest Contact Info) Description 04/18/2022 Travel Social History Tobacco Use Types Packs/Day [...] suspected to have Coronavirus/COVID-19? No / Unsure 04/18/2022 12:57 PM CDT documented as of this encounter Plan of Treatment Not on file documented as of this encounter Visit Diagnoses Not on filedocumented in this encounter Additional Health Concerns Assessment Noted Time PHQ-9 Depression Total Score: 15 022 10:50 AM CDT documented as of this encounter Care Teams Marketing Operations Coordinator Relationship Specialty Start Date End Date Crystal Cedeno APNP [address] [place] [address] PCP - General NURSE PRACTITIONER 01/05/22 documented as of this encounter
--- OUTSIDE RECORDS SUMMARY | 2024-10-07 02:48 | XMS_ITS | Encounter Summary ---
Author Organization [facility] Address [address] [place] [address]. [place], [place] [address] [place] [address] Care Team Providers Care Assault Amphibious Vehicle Officer Name Role Phone Crystal Cedeno Primary Care Provider [phone] Reason for Referral * Consultation (Urgent) - Closed Specialty Diagnoses / Procedures Referred By Deshawn t Referred To Contact ORTHOPAEDICS Diagnoses Lisfranc dislocation, right, initial encounter Crystal Cedeno APNP [address] [place] [address] Phone: tel: fax: [facility]-[address] [place] [address] Phone: tel: fax: Referral ID Status Reason Start Date Expiration Date V isits Requested Visits Authorized [id number] Closed Specialty Services 04/15/2022 05/16/2023 100 100 Scheduling Instructions Timothy Luna with advanced [facility] foot [facility] Encounter Details Date Type Department Care Team (Late st Contact Info) Description 04/12/2022 MyChart Message Enc [facility] Family and Sports Medicine - [place] [address] [place] [address] Crystal Cedeno APNP [address] [place] [address] Foot referral Social History Tobacco Use Types Packs/Day Years [...] Progress Notes * Paty Hernandez CMA - 04/15/2022 7:39 AM Gadiel, User 04/14/2022 5:23 PM CDT Yes please! I???ll keep my Monday appointment for sure! Thank you! documented in this encounter Plan of Treatment Scheduled Referrals Name Type Priority Associated Diagnoses Orde r Schedule Ambulatory referral to Orthopedics (OTHER) Referral Routine Lisfranc dislocation, right, initial encounter Ordered: 04/15/2022 documented as of this encounter Visit Diagnoses Diagnosis Lisfranc dislocation, right, initial encounter- Primary documented in this encounter Additional Health Concerns Assessment Noted Time PHQ-9 Depression Total Score: 15 022 10:50 AM CDT documented as of this encounter Care Teams Assault Amphibious Vehicle Officer Relationship Specialty Start Date End Date Crystal Cedeno APNP [address] [place] [address] PCP - General NURSE PRACTITIONER 01/05/22 documented as of this encounter
--- OUTSIDE RECORDS SUMMARY | 2024-10-07 02:48 | XMS_ITS | Encounter Summary ---
Author Organization [facility] Address [address] [place] [address]. [place], [place] [address] [place] [address] Care Team Providers Care Link Trainer Operator Name Role Phone Crystal Cedeno Primary Care Provider [phone] Encounter Details Date Type Department Care Team (Latest Contact Info) Description 02/06/2022 Travel Social History Tobacco Use Types Packs/Day [...] suspected to have Coronavirus/COVID-19? No / Unsure 02/06/2022 11:31 AM CDT documented as of this encounter Plan of Treatment Not on file documented as of this encounter Visit Diagnoses Not on filedocumented in this encounter Additional Health Concerns Assessment Noted Time PHQ-9 Depression Total Score: 15 022 10:50 AM CDT documented as of this encounter Care Teams Link Trainer Operator Relationship Specialty Start Date End Date Crystal Cedeno APNP [address] [place] [address] PCP - General NURSE PRACTITIONER 01/05/22 documented as of this encounter
--- OUTSIDE RECORDS SUMMARY | 2024-10-07 02:48 | XMS_ITS | Encounter Summary ---
Author Organization [facility] Address [address] [place] [address]. [place] [id number] Care Team Providers Care Finance Broker Name Role Phone Crystal Cedeno Primary Care Provider [phone] Encounter Details Date Type Department Care Team (Latest Contact Info) Description 06/03/2022 Scan [facility] Scanned, Documents Social History Tobacco Use Types Packs/Day Years [...] Noted Time PHQ-9 Depression Total Score: 15 01/05/ 022 10:50 AM CDT documented as of this encounter Care Teams Finance Broker Relationship Specialty Start Date End Date Crystal Cedeno APNP [address] [place], [place] [address] [address] PCP - General NURSE PRACTITIONER 01/05/22 documented as of this encounter
--- OUTSIDE RECORDS SUMMARY | 2024-10-07 02:48 | XMS_ITS | Encounter Summary ---
Author Organization [facility] Address [address] [place] [address]. [place], [place] [address] [place] [address] Care Team Providers Care Aircraft Fuselage Framer Name Role Phone Crystal Cedeno Primary Care Provider [phone] Encounter Details Date Type Department Care Team (Latest Contact Info) Description 04/07/2022 Scan [facility] INFO SRVCS Scanned, Documents [...] documented as of this encounter Care Teams Aircraft Fuselage Framer Relationship Specialty Start Date End Date Crystal Cedeno APNP [address] [place] [address] PCP - General NURSE PRACTITIONER 01/05/22 documented as of this encounter
--- OUTSIDE RECORDS SUMMARY | 2024-10-07 02:48 | XMS_ITS | Encounter Summary ---
Author Organization [facility] Address [address] [place] [address]. [place] [address] [place] [address] Care Team Providers Care Brim Shaper Name Role Phone Crystal Cedeno Primary Care Provider [phone] Reason for Visit * Reason Onset Date Comments Results 04/08/2022 Encounter Details Date Type Department Care Team (Late st Contact Info) Description 04/08/2022 Telephone [facility] Medical Group Family and Sports Medicine - [place] [address] [place] [address] Crystal Cedeno APNP [address] [place] [address] 682 Results Social History Tobacco Use Types Packs/Day [...] as of this encounter Progress Notes * Adrian Roper MA - 04/08/2022 9:12 AM CDT Called pt and LVM for pt to call office * Adrian Roper MA - 04/08/2022 9:12 AM CDT ----- Message from DODIE Bal sent at 04/08/2022 8:51 AM CDT ----- Call pt results. Weightbearing x-ray shows pes planus that patient was already aware of. There is some widening of the Lisfranc joint on the right. Patient to remain nonweightbearing. I will send referral to orthopedic and ask if they want me to order the MRI or if they would like to see you first. documented in this encounter Plan of Treatment Not on file documented as of this encounter Visit Diagnoses Not on filedocumented in this encounter Additional Health Concerns Assessment Noted Time PHQ-9 Depression Total Score: 15 022 10:50 AM CDT documented as of this encounter Care Teams Brim Shaper Relationship Specialty Start Date End Date Crystal Cedeno APNP [address] [place] [address] PCP - General NURSE PRACTITIONER 01/05/22 documented as of this encounter
--- OUTSIDE RECORDS SUMMARY | 2024-10-07 02:48 | XMS_ITS | Encounter Summary ---
Author Organization [facility] Address [address] [place] [address]. [place], [place] [address] [place] [address] Care Team Providers Care Apprentice Technician Name Role Phone Crystal Cedeno Primary Care Provider [phone] Encounter Details Date Type Department Care Team (Late st Contact Info) Description 04/25/2022 Conspiret Message Enc [facility] Medical Group Orthopedic & Sports Medicine - [place] [address] [place], [place] [id number] [phone] Arnel Long MD [address] [place], [place] [address] Paperwork Social History Tobacco Use Types Packs/Day Years [...] suspected to have Coronavirus/COVID-19? No / Unsure 04/20/2022 2:56 PM CDT documented as of this encounter Plan of Treatment Not on file documented as of this encounter Visit Diagnoses Not on filedocumented in this encounter Additional Health Concerns Assessment Noted Time PHQ-9 Depression Total Score: 15 022 10:50 AM CDT documented as of this encounter Care Teams Apprentice Technician Relationship Specialty Start Date End Date Crystal Cedeno APNP [address] [place], [place] [id number] PCP - General NURSE PRACTITIONER 01/05/22 documented as of this encounter
--- OUTSIDE RECORDS SUMMARY | 2024-10-07 02:48 | XMS_ITS | Encounter Summary ---
Author Organization [facility] Address [address] [place] [address]. [place], [place] [address] [place] [address] Care Team Providers Care Cold Strip Roller Name Role Phone Crystal Cedeno Primary Care Provider [phone] Encounter Details Date Type Department Care Team (Late st Contact Info) Description 03/02/2022 MyCidiagt Message Enc [facility] Medical Group Family and Sports Medicine - [place] [address] [place] [address] Crystal Cedeno APNP [address] [place], [place] [phone] Prozac Refill Social History Tobacco Use Types Packs/Day Years [...] Progress Notes * Paty Hernandez CMA - 03/03/2022 11:02 AM CDTFrom: Leti Soto To: Crystal Cedeno Sent: 03/02/2022 4:48 PM CDT Subject: Prozac Refill Hello! I was informed by [employer]/my insurance that I need a 90day script for my 60mg of prozac-daily. Thank you! :) documented in this encounter Plan of Treatment Not on file documented as of this encounter Visit Diagnoses Diagnosis Anxiety and depression- Primary Dysthymic disorder documented in this encounter Additional Health Concerns Assessment Noted Time PHQ-9 Depression Total Score: 15 022 10:50 AM CDT documented as of this encounter Care Teams Cold Strip Roller Relationship Specialty Start Date End Date Crystal Cedeno APNP [address] [place] [address] PCP - General NURSE PRACTITIONER 01/05/22 documented as of this encounter
--- OUTSIDE RECORDS SUMMARY | 2024-10-07 02:48 | XMS_ITS | Encounter Summary ---
Author Organization [facility] Address [address] [place] [address]. [place] [id number] Care Team Providers Care Drill Setup Operator Name Role Phone Crystal Cedeno Primary Care Provider [phone] Encounter Details Date Type Department Care Team (Latest Contact Info) Description 05/05/2022 Scan [facility] INFO SRVCS Scanned, Documents [...] Noted Time PHQ-9 Depression Total Score: 15 01/05/2 022 10:50 AM CDT documented as of this encounter Care Teams Drill Setup Operator Relationship Specialty Start Date End Date Crystal Cedeno APNP [address] [place], [place] [address] [address] PCP - General NURSE PRACTITIONER 01/05/22 documented as of this encounter
--- OUTSIDE RECORDS SUMMARY | 2024-10-07 02:48 | XMS_ITS | Encounter Summary ---
Author Organization [facility] Address [address] [place] [address]. [place], [place] [address] [place] [address] Care Team Providers Care Patient Clerical Assistant Name Role Phone Crystal Cedeno Primary Care Provider [phone] Reason for Visit * Reason Comments Med Refills Phentermine Encounter Details Date Type Department Care Team (Late st Contact Info) Description 09/27/2022 9:00 AM PROJECT INTERNSHIP Office Visit [facility] Medical Group Family and Sports Medicine - [place] [address] [place] [address] Crystal Cedeno APNP [address] [place] [address] Med Refills (Phentermine ) Social History Tobacco Use Types Packs/Day [...] suspected to have Coronavirus/COVID-19? No / Unsure 09/27/2022 8:42 AM PROJECT INTERNSHIP documented as of this encounter Last Filed Vital Signs Vital Sign Reading Time Taken Comments Blood Pressure 124/80 09/27/2022 8:53 AM PROJECT INTERNSHIP Pulse 72 09/27/2022 8:53 AM PROJECT INTERNSHIP Temperature 36.5 ??C (97.7 ??F) 09/27/2022 8:53 AM CS T Respiratory Rate 19 09/27/2022 8:53 AM PROJECT INTERNSHIP Oxygen Saturation 99% 09/27/2022 8:53 AM PROJECT INTERNSHIP Inhaled Oxygen Concentration - - Weight 154.7 kg (341 lb) 09/27/2022 8:53 AM PROJECT INTERNSHIP Height 167.6 cm (5' 6 ) 09/27/2022 8:53 AM PROJECT INTERNSHIP Body Mass Index 55.04 09/27/2022 8:53 AM PROJECT INTERNSHIP documented in this encounter Progress Notes * Crystal Cedeno, DODIE - 09/27/2022 9:00 AM CST Images from the original note were not included. Office Note Reason for Visit: Med Refills (Phentermine ) History of Present Illness: Here for medication refill on phentermine. Pt is eating a healthy diet and is exercising. Pt is feeling well with no side effects. Pt has gained 4 lbs in the past month. CSA signed 01/05/22. PDMP reviewed. Pt would like to increase dose as her appetite is not as suppressed as previous. Pt is workingwith specialist to try to have gastric sleeve surgery. ROS: Review of Systems Constitutional: Negative [...] MG, IU), , Disp: , Rfl: ??? Phentermine HCl 30 MG Cap, Take 30 mg by mouth daily., Disp: 30 capsule, Rfl: 0 ??? tirzepatide (MOUNJARO) 2.5 MG/0.5ML injection, Inject [...] Memory normal. Judgment: Judgment normal. Filed Vitals: 09/27/22 0853 BP: 124/80 Pulse: 72 Resp: 19 Temp: 97.7 ??F (36.5 ??C) SpO2: 99% Weight: (!) 154.7 kg (341 lb) Height: 5' 6 (1.676 m) Body mass index is 55.04 kg/m??. Diagnoses/Plan: 1. Class 3 severe obesity due to excess calories without serious comorbidity with body mass index (BMI) of 50.0 to 59.9 in adult (CMS/HCC) Phentermine HCl 30 MG Cap tirzepatide (MOUNJARO) 2.5 MG/0.5ML injection Medications Discontinued During This Encounter Medication Reason ??? Phentermine HCl 15 MG Cap (Clinician Removed from Med list) Discussion: New prescription given for Mounjaro. Pt to stop Phentermine if able to start Mounjaro. Discussed food tracking eva and setting weight loss goal of that is realistic and will help keep the weight off group home such as 12 pounds in 12 weeks. Monitor portions carefully and plan meals and advance. Increase increase daily activity level and walk for exercise. Watch intake of carbs and sugars. Increasedaily water intake. Monitor heart rate and blood pressure. Follow-up in 1 month. DODIE LIZ 09/27/2022 ECT INTERNSHIP documented in this encounter Plan of Treatment Not on file documented as of this encounter Visit Diagnoses Diagnosis Class 3 severe obesity due to excess calories without serious comorbidity with body mass index (BMI) of 50.0 to 59.9 in adult ([facility])- Primary documented in this encounter Additional Health Concerns Assessment Noted Time PHQ-9 Depression Total Score: 15 022 10:50 AM CDT documented as of this encounter Care Teams Patient Clerical Assistant Relationship Specialty Start Date End Date Crystal Cedeno APNP [address] [place] [address] PCP - General NURSE PRACTITIONER 01/05/22 documented as of this encounter
--- OUTSIDE RECORDS SUMMARY | 2024-10-07 02:48 | XMS_ITS | Encounter Summary ---
Author Organization [facility] Address [address] [place] [address]. [place] [id number] [place] [address] Care Team Providers Care Orthopedics Teacher Name Role Phone Miladis Sosa Primary Care Provider [phone] Crystal Cedeno Primary Care Provider [phone] Encounter Details Date Type Department Care Team (Late st Contact Info) Description 12/16/2021 Beeline Message Enc [facility] Medical Group Family & Internal Medicine [facility] [address] [place] [address] Jane, [facility] Provider CT results from 11/22/21 Social History Tobacco Use Types Packs/Day Years [...] Coronavirus/COVID-19? No / Unsure 11/22/2021 2:04 PM RN PATIENT SERVICES documented as of this encounter Plan of Treatment Not on file documented as of this encounter Visit Diagnoses Not on filedocumented in this encounter Additional Health Concerns Assessment Noted Time PHQ-9 Depression Total Score: 0 11/22/19 2:38 PM RN PATIENT SERVICES documented as of this encounter Care Teams Orthopedics Teacher Relationship Specialty [place] [address] [place] [address] PCP - General PHYSICIAN SPICE FUMIGATOR 02/10/20 01/04/22 Crystal Cedeno APNP [address] [place] [address] PCP - General NURSE PRACTITIONER 01/05/22 documented as of this encounter
--- OUTSIDE RECORDS SUMMARY | 2024-10-07 02:48 | XMS_ITS | Encounter Summary ---
Author Organization [facility] Address [address] [place] [address]. [place], [place] [address] [place] [address] Care Team Providers Care Page Technician Name Role Phone Crystal Cedeno Primary Care Provider [phone] Encounter Details Date Type Department Care Team (Late st Contact Info) Description 08/29/2022 Algisyst Message Enc [facility] Medical Group Family and Sports Medicine - [place] [address] [place] [address] Crystal Cedeno APNP [address] [place] [address] Prior auth follow up Social History Tobacco Use Types Packs/Day Years [...] Coronavirus/COVID-19? No / Unsure 08/24/2022 8:13 AM GLOBAL PROJECT MANAGER documented as of this encounter Progress Notes * Natalia E Garcia, PRODUCT COMMUNICATIONS MANAGER - 08/31/2022 10:20 AM CSTFrom: Leti Soto To: Crystal Pao Sent: 08/29/2022 10:02 AM GLOBAL PROJECT MANAGER Subject: Prior auth follow up Hello, happy Monday. I???m just following up about the prior auth for my medication. Wondering if you???ve had time to fill out and fax back yet? Thank you -Yesenia AL PROJECT MANAGER documented in this encounter Plan of Treatment Not on file documented as of this encounter Visit Diagnoses Not on filedocumented in this encounter Additional Health Concerns Assessment Noted Time PHQ-9 Depression Total Score: 15 022 10:50 AM CDT documented as of this encounter Care Teams Page Technician Relationship Specialty Start Date End Date Crystal Cedeno APNP [address] [place] [address] PCP - General NURSE PRACTITIONER 01/05/22 documented as of this encounter
--- OUTSIDE RECORDS SUMMARY | 2024-10-07 02:48 | XMS_ITS | Encounter Summary ---
Author Organization [facility] Address [address] [place] [address]. [place], [place] [address] [place] [address] Care Team Providers Care Manager Of Supply Chain Name Role Phone Crystal Cedeno Primary Care Provider [phone] Encounter Details Date Type Department Care Team (Latest Contact Info) Description 04/06/2022 Travel Social History Tobacco Use Types Packs/Day [...] as of this encounter Care Teams Manager Of Supply Chain Relationship Specialty Start Date End Date Crystal Cedeno APNP [address] [place] [address] PCP - General NURSE PRACTITIONER 01/05/22 documented as of this encounter
--- OUTSIDE RECORDS SUMMARY | 2024-10-07 02:48 | XMS_ITS | Encounter Summary ---
Author Organization [facility] Address [address] [place] [address]. [place] [address] [place] [address] Care Team Providers Care Auto Painter Name Role Phone Crystal Cedeno Primary Care Provider [phone] Reason for Visit * Reason Comments Follow Up Right plantar fascia rupture Encounter Details Date Type Department Care Team (Late st Contact Info) Description 05/25/2022 2:00 PM CDT Office Visit [facility] Medical Group Orthopedic & Sports Medicine - [place] [address] [place] [address] Arnel Long MD [address] [place] [address] Follow Up (Right plantar fascia rupture) Social History Tobacco Use Types Packs/Day Years [...] Sign Reading Time Taken Comments Blood Pressure 136/84 05/25/2022 2:05 PM CDT Pulse 78 05/25/2022 2:05 PM CDT Temperature 37.2 ??C (99 ??F) 05/25/2022 2:05 PM CDT Respiratory Rate 20 05/25/2022 2:05 PM CDT Oxygen Saturation 99% 05/25/2022 2:05 PM CDT Inhaled Oxygen Concentration - - Weight 139.6 kg (307 lb 12.8 oz) 05/25/2022 2:05 PM CDT Height 167.6 cm (5' 6 ) 05/25/2022 2:05 PM CDT Body Mass Index 49.68 05/25/2022 2:05 PM CDT documented in this encounter Progress Notes * Arnel Long MD - 05/25/2022 2:00 PM CDT Images from the original note were not included. Office Visit Reason for Visit: Follow Up (Right plantar fascia rupture) History of Present Illness: 04/18/2022-she is here for evaluation of her right foot. She had a episode of what she thought Planter fasciitis several weeks ago. She saw a wet suit gluer for this. She then had an injury on 04/06/2022. She says she stepped down hard when she was stepping over something. She felt acute pain. She was seen at her PCP office. X-rays showed a possible abnormality at the second TMT joint. 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 She has been nonweightbearing. 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 ?? 05/02/2022- she says pain is improving. She has been fully weightbearing in the boot with the arch support. She did have some increased pain as she was doing her water walking yesterday. She did have her orthotics fabricated. She is using down the left side but not the right. 05/25/2022- Patient's pain is improving. She states that she has been trying to push herself more with walking. Patient would like to begin working again. She states that she does need to be on her feet frequently for work. Planning on returning to work July 09, 2022. No restrictions. Return to clinic as needed. Vitals: Filed Vitals: 05/25/22 1405 BP: 136/84 Pulse: 78 Resp: 20 Temp: 99 ??F (37.2 ??C) TempSrc: Temporal SpO2: 99% Weight: (!) 139.6 kg (307 lb 12.8 oz) Height: 5' 6 (1.676 m) Physical Exam: Physical Exam Constitutional: She is oriented to person, place, and time. She appears well- developed and well-nourished. HENT: Head: Normocephalic. Eyes: EOM are normal. Cardiovascular: Intact distal pulses. Pulmonary/Chest: Effort normal. No respiratory distress. Neurological: She is alert and oriented to person, place, and time. Psychiatric: She has a normal mood and affect. Ortho: Walking well. No limp. Tender at the plantar fascitis especially at the insertion of the plantar fashion to the calcaneus. No image results found. Assessment: Plantar fascial rupture - 7 weeks post injury Plan: She has orthotics that fit her well and supportive shoes. Planning on returning to work June. No restrictions. Return to clinic as needed. Procedures Summary: There are no diagnoses linked to this encounter. ROS: ROS Medications: Current Outpatient Medications: ??? buPROPion (WELLBUTRIN) 75 MG tablet, Take 1 tablet (75 mg total) by mouth daily., Disp: 90 tablet, Rfl: 2 ??? FLUoxetine 20 MG capsule, Take 3 capsules (60 mg total) by mouth daily., Disp: 270 capsule, Rfl: 1 ??? Levonorgestrel (MIRENA, 52 MG, IU), , Disp: , Rfl: ??? acetaminophen-codeine (TYLENOL #3) 300-30 MG tablet, TAKE 1 TABLET BY MOUTH EVERY 4 HOURS NEEDED FOR PAIN OR ACUTE PAIN OR CHRONIC PAIN, Disp: 28 tablet, Rfl: 0 Allergies: Allergies Allergen Reactions [...] Smoker ??? Smokeless tobacco: Never Used ??? Tobacco comment: non smoker Vaping Use ??? Vaping Use: [...] Scott Mcallister ??? COPD Paternal Grandfather Scott cMallister ??? Hypertension Paternal Grandfather Scott Mcallister IDevonte am scribing for and in the presence of Dr. Long. Devonte Jarvis 05/25/2022 documented in this encounter Plan of Treatment Not on file documented as of this encounter Visit Diagnoses Diagnosis Rupture of plantar fascia of right foot, subsequent encounter- Primary documented in this encounter Additional Health Concerns Assessment Noted Time PHQ-9 Depression Total Score: 15 04/ 022 10:50 AM CDT documented as of this encounter Care Teams Auto Painter Relationship Specialty Start Date End Date Crystal Cedeno AP[place] [address] PCP - General NURSE PRACTITIONER 01/05/22 documented as of this encounter
--- OUTSIDE RECORDS SUMMARY | 2024-10-07 02:48 | XMS_ITS | Encounter Summary ---
Author Organization [facility] Address [address] [place] [address]. [place], [place] [address] [place] [address] Care Team Providers Care In Home Baby Sitter Name Role Phone Crystal Cedeno Primary Care Provider [phone] Reason for Visit * Reason Comments Follow Up Right plantar fascia Encounter Details Date Type Department Care Team (Late st Contact Info) Description 05/02/2022 11:00 AM CDT Office Visit [facility] Medical Group Orthopedic & Sports Medicine - [place] [address] [place] [address] Maury Rand MD [address] [place] [address] Follow Up (Right plantar fascia) Social History Tobacco Use Types Packs/Day Years [...] Sign Reading Time Taken Comments Blood Pressure 135/78 05/02/2022 11:30 AM CDT Pulse 79 05/02/2022 11:30 AM CDT Temperature 36.9 ??C (98.5 ??F) 05/02/2022 1 1:30 AM CDT Respiratory Rate - - Oxygen Saturation 100% 05/02/2022 11: 30 AM CDT Inhaled Oxygen Concentration - - Weight 137.8 kg (303 lb 12.8 oz) 2021 11:30 AM CDT Height 167.6 cm (5' 6 ) 05/02/2022 11:3 0 AM CDT Body Mass Index 49.03 05/02/2022 11:30 AM CDT documented in this encounter Progress Notes * Maury Rand MD - 05/02/2022 11:00 AM CDT Images from the original note were not included. Office Visit Reason for Visit: Follow Up (Right plantar fascia) History of Present Illness: 04/18/2022-she is here for evaluation of her right foot. She had a episode of what she thought Planter fasciitis several weeks ago. She saw a coal carrier for this. She then had an injury [...] nonweightbearing. 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 05/02/2022- she says pain is improving. She has been fully weightbearing in the boot with the arch support. She did have some increased pain as she was doing her water walking yesterday. She did have her orthotics fabricated. She is using down the left side but not the right. Vitals: Filed Vitals: 05/02/22 1130 BP: 135/78 Pulse: 79 Temp: 98.5 ??F (36.9 ??C) SpO2: 100% Weight: (!) 137.8 kg (303 lb 12.8 oz) Height: 5' 6 (1.676 [...] has a normal mood and affect. Ortho: Tender at the central heel on the right side. Nontender posteriorly along the calf or Achilles. Somewhat tender at the central plantar fascia but more so at the insertion of the plantar fashion to the calcaneus. MRI shows complete disruption of the central cord of the plantar fascia at its insertion to the calcaneus. No image results found. Assessment: Plantar fascial rupture - 4 weeks post injury Plan: Advance activities. She can wean out of the boot at home to her shoe. She should be wearing a shoe with supportive arch and or orthotic at all times. Follow-up in clinic in 3 to 4 weeks for repeat examination, no x-rays. Discuss possible return to work at that time. 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 She needs to hold off on work for now. Procedures Summary: Leti was seen today for follow up. Diagnoses and all orders for this visit: Rupture of plantar fascia of right foot, subsequent encounter ROS: ROS Medications: Current Outpatient Medications: ??? acetaminophen-codeine (TYLENOL #3) 300-30 MG tablet, TAKE 1 TABLET BY MOUTH EVERY 4 HOURS NEEDED FOR PAIN OR ACUTE PAIN OR CHRONIC PAIN, Disp: 28 tablet, Rfl: 0 ??? celecoxib (CELEBREX) 100 MG capsule, Take [...] Mcallister ??? Hypertension Paternal Grandfather Scott Mcallister MAURY RAND MD 05/02/2022 documented in this encounter Plan of Treatment Not on file documented as of this encounter Visit Diagnoses Diagnosis Rupture of plantar fascia of right foot, subsequent encounter- Primary documented in this encounter Additional Health Concerns Assessment Noted Time PHQ-9 Depression Total Score: 15 022 10:50 AM CDT documented as of this encounter Care Teams In Home Baby Sitter Relationship Specialty Start Date End Date Crystal Cedeno APNP [address] [place] [address] PCP - General NURSE PRACTITIONER 01/05/22 documented as of this encounter
--- OUTSIDE RECORDS SUMMARY | 2024-10-07 02:48 | XMS_ITS | Encounter Summary ---
Author Organization [facility] Address [address] [place] [address]. [place], [place] [address] [place] [address] Care Team Providers Care Carpenter Helper Name Role Phone Miladis Sosa Primary Care Provider [phone] Reason for Visit * Reason Comments Other BROWNISH REDDISH DIS CHARGE FROM UMBLICAL CORD AND PAIN 6 HEADACHES AND SIDE PAIN/ AND OTHER ISSUES Encounter Details Date Type Department Care Team (Late st Contact Info) Description 11/22/2021 1:40 PM [employer] Office Visit [facility] Medical Group Family & Internal Medicine [facility] [address] [place] [address] [place] [address] [place] [address] Other (BROWNISH REDDISH DISCHARGE FROM UMBLICAL CORD AND PAIN 6 HEADACHES AND SIDE PAIN/ AND OTHER ISSUES ) Social History Tobacco Use Types Packs/Day [...] Coronavirus/COVID-19? No / Unsure 11/22/2021 2:04 PM [employer] documented as of this encounter Last Filed Vital Signs Vital Sign Reading Time Taken Comments Blood Pressure 126/64 11/22/2021 2:31 PM [employer] Pulse 88 11/22/2021 2:31 PM [employer] Temperature 36.6 ??C (97.9 ??F) 11/22/2021 2:31 PM CS T Respiratory Rate 16 11/22/2021 2:31 PM [employer] Oxygen Saturation 100% 11/22/2021 2:31 PM [employer] Inhaled Oxygen Concentration - - Weight 129.5 kg (285 lb 8 oz) 11/22/2021 2:31 PM [employer] Height 167.6 cm (5' 6 ) 11/22/2021 2:31 PM [employer] Body Mass Index 46.08 11/22/2021 2:31 PM [employer] documented in this encounter Progress Notes * Coby Alberts MA - 11/22/2021 1:40 PM CSTAddended by: COBY ALBERTS on: 12/02/2021 03:23 PM Modules accepted: Orders [employer] * Luma Kern MD - 11/22/2021 1:40 PM CST Reason for Visit: Other (BROWNISH REDDISH DISCHARGE FROM UMBLICAL CORD AND PAIN 6 HEADACHES AND SIDE PAIN/ AND OTHER ISSUES ) HPI 30-year-old female who works in [employer]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 Yesterday she noticed some abdominal pain around her bellybutton up to a level 6 and was beginning to wonder whether she could have a hernia from a lifting and she is rather large with a BMI of 46.08. Yesterday the pain worsened and then she started noticing a brownish bloody drainage from her bellybutton which was quite a lot she ended up going home through her shift and had quite a bit of drainage which has now almost completely dissipated however she continues to have abdominal pain at abouta level 6 which radiates towards her back. No nausea vomiting nor fever however if she lifts or stoop she does have increased pain. Review of Systems Constitutional: Negative. HENT: Negative. Eyes: Negative. Respiratory: Negative. Cardiovascular: Negative. Gastrointestinal: Positive for abdominal pain. See HPI Musculoskeletal: Negative. Skin: Negative. Neurological: Negative. Psychiatric/Behavioral: Negative. Current Outpatient Medications: ??? FLUoxetine 20 MG capsule, TAKE 3 CAPSULE BY MOUTH DAILY, Disp: , Rfl: Allergies Allergen Reactions ??? Tramadol Other (see comment) Shaky, increased heart rate, sweating. ??? Penicillins Rash and Unknown Past Medical History: Diagnosis Date ??? Anxiety ??? Depression Past Surgical History: Procedure Laterality Date ??? CHOLECYSTECTOMY ??? EYE SURGERY Lasic Social History Socioeconomic History ??? Marital status: [...] Intimate Partner Violence: Not on file Family History Problem Relation Name Age of Onset ??? Anxiety Mother ??? Osteoarthritis Mother ??? Diabetes Father ??? Heart Disease Father ??? Lung Disease Maternal Grandmother ??? Diabetes Maternal Grandmother ??? Diabetes Maternal Grandfather ??? Diabetes Paternal Grandfather ??? Heart Disease Paternal Grandfather Family Status Relation Name Status ??? Mother Alive ??? Father Alive ??? MGM ??? MGF ??? PGM ??? PGF Alive Filed Vitals: 11/22/21 1431 BP: 126/64 Pulse: 88 Resp: 16 Temp: 97.9 ??F (36.6 ??C) TempSrc: Temporal SpO2: 100% Weight: 129.5 kg (285 lb 8 oz) Height: 5' 6 (1.676 m) Body mass index is 46.08 kg/m??. Physical Exam Constitutional: General: She is in acute distress. Appearance: Normal appearance. She is well-developed. She is obese. HENT: Head: Normocephalic. Eyes: Conjunctiva/sclera: Conjunctivae normal. Cardiovascular: Rate and Rhythm: Normal rate and regular rhythm. Heart sounds: Normal heart sounds. Pulmonary: Effort: Pulmonary effort is normal. Breath sounds: Normal breath sounds. Abdominal: General: Bowel sounds are normal. Palpations: Abdomen is soft. Tenderness: There is abdominal tenderness. There is rebound. There is no guarding. Comments: No obvious drainage appreciated in the umbilical area today there is periumbilical tenderness in the supra umbilical area which is tender which could be a hernia. No guarding or rebound the abdomen is soft Musculoskeletal: General: Normal range of motion. Cervical back: Neck supple. Skin: General: Skin is dry. Neurological: Mental Status: She is alert and oriented to person, place, and time. Cranial Nerves: No cranial nerve deficit. Psychiatric: Judgment: Judgment normal. Assessment/PLAN 1. Acute periumbilical pain - CT ABD+PEL W CON; Future - CT ABD+PEL W CON COUNSELING: I spent 30 minutes today reviewing the patient's medical record, obtaining history, performing an exam, ordering medications, tests and/or procedures, documenting in the medical record, counseling and educating the patient/family/caregiver. Reviewing and communicating test results & coordination of care. Parent umbilical abscess resolved for now with no infection drainage or fever observation With residual of periumbilical pain radiating to the back cannot rule out underlying intra-abdominal abscess versus umbilical hernia. Will evaluate with a CT of the abdomen which will allow us to know for dealing with a subcutaneous abscess intra-abdominal abscess or hernia which needs repair. If you think function oriented would treat with antibiotics and if hernia related may need referralto general surgery. Follow-up pending symptoms and results of as needed Follow up FU PRN LUMA KERN MD 11/22/2021 3:30 PM [employer] documented in this encounter Plan of Treatment Not on file documented as of this encounter Visit Diagnoses Diagnosis Acute periumbilical pain- Primary Abdominal pain, periumbilic documented in this encounter Additional Health Concerns Assessment Noted Time PHQ-9 Depression Total Score: 0 11/22/19 2:38 PM [employer] documented as of this encounter Care Teams Carpenter Helper Relationship Specialty [place] [address] [place] [address] PCP - General PHYSICIAN HOME HOSPICE AIDE 02/10/20 01/04/22 documented as of this encounter
--- OUTSIDE RECORDS SUMMARY | 2024-10-07 02:48 | XMS_ITS | Encounter Summary ---
Author Organization [facility] Address [address] [place] [address]. [place], [place] [address] [place] [address] Care Team Providers Care Marketing Intelligence Analyst Name Role Phone Crystal Cedeno Primary Care Provider [phone] Encounter Details Date Type Department Care Team (Late st Contact Info) Description 04/07/2022 MyCKelDoct Message Enc [facility] Medical Group Family and Sports Medicine - [place] [address] [place] [address] Crystal Cedeno APNP [address] [place] [address] 62 X-ray results Social History Tobacco Use Types Packs/Day Years [...] CMA - 04/07/2022 11:03 AM CDT Called pt. Appt scheduled 04/07/22 documented in this encounter Plan of Treatment Not on file documented as of this encounter Visit Diagnoses Not on filedocumented in this encounter Additional Health Concerns Assessment Noted Time PHQ-9 Depression Total Score: 15 022 10:50 AM CDT documented as of this encounter Care Teams Marketing Intelligence Analyst Relationship Specialty Start Date End Date Crystal Cedeno APNP [address] [place] [address] PCP - General NURSE PRACTITIONER 01/05/22 documented as of this encounter
--- OUTSIDE RECORDS SUMMARY | 2024-10-07 02:48 | XMS_ITS | Encounter Summary ---
Author Organization [facility] Address [address] [place] [address]. [place], [place] [address] [place] [address] Care Team Providers Care Group Counselor Name Role Phone Crystal Cedeno Primary Care Provider [phone] Encounter Details Date Type Department Care Team (Late st Contact Info) Description 06/09/2022 ViaWestt Message Enc [facility] Medical Group Orthopedic & Sports Medicine - [place] [address] [place], [place] [id number] [phone] Arnel Long MD [address] [place], [place] [phone] Short term disability paperwork Social History Tobacco Use Types Packs/Day [...] documented as of this encounter Care Teams Group Counselor Relationship Specialty Start Date End Date Crystal Cedeno APNP [address] [place], [place] [phone] PCP - General NURSE PRACTITIONER 01/05/22 documented as of this encounter
--- OUTSIDE RECORDS SUMMARY | 2024-10-07 02:48 | XMS_ITS | Encounter Summary ---
Author Organization [facility] Address [address] [place] [address]. [place], [place] [address] [place] [address] Care Team Providers Care Domestic Technician Name Role Phone Crystal Cedeno Primary Care Provider [phone] Encounter Details Date Type Department Care Team (Latest Contact Info) Description 01/05/2022 Travel Social History Tobacco Use Types Packs/Day [...] documented as of this encounter Care Teams Domestic Technician Relationship Specialty Start Date End Date Crystal Cedeno APNP [address] [place] [address] PCP - General NURSE PRACTITIONER 01/05/22 documented as of this encounter
--- OUTSIDE RECORDS SUMMARY | 2024-10-07 02:48 | XMS_ITS | Encounter Summary ---
Author Organization [facility] Address [address] [place] [address]. [place] [id number] Care Team Providers Care Research And Development Specialist Name Role Phone Crystal Cedeno Primary Care Provider [phone] Encounter Details Date Type Department Care Team (Latest Contact Info) Description 04/20/2022 Scan [facility] Scanned, Documents [...] documented as of this encounter Care Teams Research And Development Specialist Relationship Specialty Start Date End Date Crystal Cedeno APNP [address] [place], [place] [address] [address] PCP - General NURSE PRACTITIONER 01/05/22 documented as of this encounter
--- OUTSIDE RECORDS SUMMARY | 2024-10-07 02:48 | XMS_ITS | Encounter Summary ---
Author Organization [facility] Address [address] [place] [address]. [place], [place] [address] [place] [address] Care Team Providers Care Hockey Instructor Name Role Phone Crystal Cedeno Primary Care Provider [phone] Reason for Referral * Imaging (Emergency) - Closed Specialty Diagnoses / Procedures Referred By Contac t Referred To Contact RADIOLOGY Diagnoses Right foot pain Procedures MRI FOOT RT WO CON Maury Rand MD [address] [place] [address] Phone: tel:[phone] fax: Referral ID Status Reason Start Date Expiration Date Visits Re quested Visits Authorized [id number] Closed 04/18/2022 08/16/2022 1 1 Reason for Visit * Imaging (Emergency) - Closed Specialty Diagnoses / Procedures Referred By Contac t Referred To Contact RADIOLOGY Diagnoses Right foot pain Procedures MRI FOOT RT WO CON Maury Rand MD [address] [place] [address] Phone: tel: fax: Referral ID Status Reason Start Date Expiration Date Visits Re quested Visits Authorized [id number] Closed 04/18/2022 08/16/2022 1 1 Encounter Details Date Type Department Care Team (Latest Contact Info) Description 04/20/2022 2:59 PM CDT - 04/20/2022 11:59 PM CDT Hospital Encounter [facility] Open MRI [address] [place] [address] Maury Rand MD [address] [place] [address] Discharge Disposition: Home or Self Care (Routine [...] this encounter Medications at Time of Discharge Levonorgestrel (MIRENA, 52 MG, IU) acetaminophen-codei ne (TYLENOL #3) 300-30 MG tabletIndications:L isfranc dislocation, right, initial encounter,Right foot pain TAKE 1 TABLET BY MOUTH EVERY 4 HOURS NEEDED FOR PAIN OR ACUTE PAIN OR CHRONIC PAIN 28 tablet 04/20/2022 2 celecoxib (CELEBREX) 100 MG capsuleIndications: Bilateral foot pain Take 1 capsule (100 mg total) by mouth 2 (two) times daily for 30 days. 60 capsule 04/06/2022 2 FLUoxetine 20 MG capsuleIndications: Anxiety and depression Take 3 capsules (60 mg total) by mouth daily. 270 capsule 1 03/03/2022 3 lisdexamfetamine (VYVANSE) 40 MG capsuleIndications: Attention deficit hyperactivity disorder (ADHD), combined type Take 1 capsule (40 mg total) by mouth every morning. 30 capsule 04/06/2022 2 predniSONE 10 mg tabletIndications:B ilateral foot pain Start 60 mg today and decrease by one tablet each day until complete. 21 tablet 04/06/2022 2 documented as of this encounter Plan of Treatment Not on file documented as of this encounter Procedures Procedure Name Priority Date/Time Associated Diagnosis Comments MRI FOOT RT WO CON STAT 04/20/2022 4: 00 PM CDT Right foot pain documented in this encounter Results * MRI FOOT RT WO CON (04/20/2022 4:00 PM CDT) Anatomical Region Laterality Modality Foot Magnetic Resonan ce 04/20/2022 4:25 PM CDT Impressions 04/20/2022 4:38 PM CDT IMPRESSION: Lisfranc ligament appears intact. ??No evidence of an adjacent fracture or associated soft tissue swelling. There is a full-thickness tear of the calcaneal attachment of the central cord plantar fascia with approximately 11 mm of retraction. ??Sensitivity surrounding soft tissue swelling, reactive marrow edema of the calcaneus. Posterior tibial and flexor digitorum longus tenosynovitis. Split tear peroneus brevis as it crosses the lateral malleolus. ??Peroneus longus intact. No acute fracture or dislocation. Moderate tibiotalar and diffuse midfoot osteoarthritis. ??This is of uncertain significance and could relate to biomechanical stress changes or previous injuries. Referred By: MAURY RAND Interpreted By: Stefano Hamm MD, 04/20/2022 4:25 PM Narrative 04/20/2022 4:38 PM CDT EXAMINATION: MRI RIGHT FOOT WITHOUT CONTRAST EXAM DATE: 04/20/2022 3:35 PM REASON FOR EXAM: ?? Foot injury and pain, possible Lisfranc injury. ?? COMPARISON: None TECHNIQUE: Multiplanar multisequence imaging of the hindfoot without intravenous contrast. FINDINGS: Moderate plantar hindfoot soft tissue swelling. ??No significant joint effusion. Syndesmotic 6 intact. Anterior and posterior talofibular ligaments intact. Calcaneofibular ligament intact. Lisfranc ligament intact. Dorsal talonavicular ligament intact. Deltoid ligament intact. Plantar fascia: There is a full-thickness tear of the calcaneal attachment of the central cord plantar fascia with approximately 11 mm of retraction. ??Sensitivity surrounding soft tissue swelling, reactive marrow edema of the calcaneus. Tendons: Extensors within normal limits. Posterior tibial and flexor digitorum longus tenosynovitis. Split tear peroneus brevis as it crosses the lateral malleolus. ??Peroneus longus intact. Cartilage/marrow: No osteochondral lesion of the talus. ??No acute fracture or dislocation. No significant intrinsic muscular atrophy. Moderate tibiotalar and diffuse midfoot osteoarthritis. ??This is of uncertain significance and could relate to biomechanical stress changes or previous injuries. Procedure Note Stefano Hamm MD - 04/20/2022 EXAMINATION: MRI RIGHT FOOT WITHOUT CONTRAST EXAM DATE: 04/20/2022 3:35 PM REASON FOR EXAM: Foot injury and pain, possible Lisfranc injury. COMPARISON: None TECHNIQUE: Multiplanar multisequence imaging of the hindfoot withoutintravenous contrast. FINDINGS: Moderate plantar hindfoot soft tissue swelling. No significant jointeffusion. Syndesmotic 6 intact. Anterior and posterior talofibular ligaments intact. Calcaneofibular ligament intact. Lisfranc ligament intact. Dorsal talonavicular ligament intact. Deltoid ligament intact. Plantar fascia: There is a full-thickness tear of the calcaneal attachmentof the central cord plantar fascia with approximately 11 mm of retraction.Sensitivity surrounding soft tissue swelling, reactive marrow edema ofthe calcaneus. Tendons: Extensors within normal limits. Posterior tibial and flexor digitorum longus tenosynovitis. Split tear peroneus brevis as it crosses the lateral malleolus. Peroneuslongus intact. Cartilage/marrow: No osteochondral lesion of the talus. No acute fractureor dislocation. No significant intrinsic muscular atrophy. Moderate tibiotalar and diffuse midfoot osteoarthritis. This is ofuncertain significance and could relate to biomechanical stress changes orprevious injuries. IMPRESSION: Lisfranc ligament appears intact. No evidence of an adjacent fracture orassociated soft tissue swelling. There is a full-thickness tear of the calcaneal attachment of the centralcord plantar fascia with approximately 11 mm of retraction. Sensitivitysurrounding soft tissue swelling, reactive marrow edema of thecalcaneus. Posterior tibial and flexor digitorum longus tenosynovitis. Split tear peroneus brevis as it crosses the lateral malleolus. Peroneuslongus intact. No acute fracture or dislocation. Moderate tibiotalar and diffuse midfoot osteoarthritis. This is ofuncertain significance and could relate to biomechanical stress changes orprevious injuries. Referred By: MAURY RAND Interpreted By: Stefano Hamm MD, 04/20/2022 4:25 PM us Maury Rand MD MRI Final Result documented in this encounter Visit Diagnoses Diagnosis Right foot pain Pain in limb documented in this encounter Additional Health Concerns Assessment Noted Time PHQ-9 Depression Total Score: 15 022 10:50 AM CDT documented as of this encounter Care Teams Hockey Instructor Relationship Specialty Start Date End Date Crystal Cedeno APNP [address] [place] [address] PCP - General NURSE PRACTITIONER 01/05/22 documented as of this encounter
--- OUTSIDE RECORDS SUMMARY | 2024-10-07 02:48 | XMS_ITS | Encounter Summary ---
Author Organization [facility] Address [address] [place] [address]. [place], [place] [address] [place] [address] Care Team Providers Care Hand Sizer Name Role Phone Crystal Cedeno Primary Care Provider [phone] Encounter Details Date Type Department Care Team (Late st Contact Info) Description 07/04/2022 Stichert Message Enc [facility] Medical Group Family and Sports Medicine - [place] [address] [place] [address] Crystal Cedeno APNP [address] [place], [place] [phone] Refill Social History Tobacco Use Types Packs/Day [...] as of this encounter Progress Notes * ANGELICA Sandy 07/05/2022 3:46 PM CDTAddended by: GEOVANNY HERNANDEZ on: 07/05/2022 03:46 PM Modules accepted: Orders * DODIE Bal - 07/05/2022 7:56 AM CDTAddended by: CRYSTAL CEDENO on: 07/05/2022 07:56 AM Modules accepted: Orders * DODIE Bal - 07/05/2022 12:25 AM CDTAddended by: CRYSTAL CEDENO on: 07/05/2022 12:25 AM Modules accepted: Orders * Geovanny Hernandez CMA - 07/04/2022 1:39 PM CDTAddended by: GEOVANNY HERNANDEZ on: 07/04/2022 01:39 PM Modules accepted: Orders * Geovanny Hernandez CMA - 07/04/2022 8:07 AM CDTFrom: Leti Soto To: Crystal Cedeno Sent: 07/04/2022 7:03 AM CDT Subject: Refill Hello! I???m sending you an email to increase my Wellbutrin dose and send over a refill. I???ve been [id number] in AM and then 75mg in the afternoon. Can you prescribe 250mg extended release? That way I only have to take medication in the morning. Thank you! -Maria Del Rosario on file is good for sendi ng the medication refill to. documented in this encounter Plan of Treatment Not on file documented as of this encounter Visit Diagnoses Diagnosis Moderate episode of recurrent major depressive disorder ([facility]/HCC [facility]/HCC)- Primary documented in this encounter Additional Health Concerns Assessment Noted Time PHQ-9 Depression Total Score: 15 022 10:50 AM CDT documented as of this encounter Care Teams Hand Sizer Relationship Specialty Start Date End Date Crystal Cedeno APNP [address] [place] [address] PCP - General NURSE PRACTITIONER 01/05/22 documented as of this encounter
--- OUTSIDE RECORDS SUMMARY | 2024-10-07 02:48 | XMS_ITS | Encounter Summary ---
Author Organization [facility] Address [address] [place] [address]. [place], [place] [address] [place] [address] Care Team Providers Care Manager Image Name Role Phone Crystal Cedeno Primary Care Provider [phone] Encounter Details Date Type Department Care Team (Late st Contact Info) Description 08/25/2022 WGT Mediat Message Enc [facility] Medical Group Family and Sports Medicine - [place] [address] [place] [address] Crystal Cedeno APNP [address] [place] [address] Christounjaro update Social History Tobacco Use Types Packs/Day Years [...] Coronavirus/COVID-19? No / Unsure 08/24/2022 8:13 AM BUSINESS CONTINUITY CONSULTANT documented as of this encounter Plan of Treatment Not on file documented as of this encounter Visit Diagnoses Not on filedocumented in this encounter Additional Health Concerns Assessment Noted Time PHQ-9 Depression Total Score: 15 022 10:50 AM CDT documented as of this encounter Care Teams Manager Image Relationship Specialty Start Date End Date Crystal Cedeno APNP [address] [place], [place] [phone] PCP - General NURSE PRACTITIONER 01/05/22 documented as of this encounter
--- OUTSIDE RECORDS SUMMARY | 2024-10-07 02:48 | XMS_ITS | Encounter Summary ---
Author Organization [facility] Address [address] [place] [address]. [place], [place] [address] [place] [address] Care Team Providers Care Celery Cutter Name Role Phone Crystal Cedeno Primary Care Provider [phone] Reason for Visit * Reason Onset Date Comments Record Request 03/17/2022 Encounter Details Date Type Department Care Team (Late st Contact Info) Description 03/17/2022 Telephone [facility] Medical Group Family and Sports Medicine - [place] [address] [place] [address] Crystal Cedeno APNP [address] [place] [address] [phone] Record Request Social History Tobacco Use Types Packs/Day [...] as of this encounter Progress Notes * Doreen Figueroa MA - 03/21/2022 8:09 AM CDT Received and sent to PCP * Doreen Figueroa MA - 03/17/2022 1:52 PM CDT I have faxed Dr. Mar for pap report. documented in this encounter Plan of Treatment Not on file documented as of this encounter Visit Diagnoses Not on filedocumented in this encounter Additional Health Concerns Assessment Noted Time PHQ-9 Depression Total Score: 15 022 10:50 AM CDT documented as of this encounter Care Teams Celery Cutter Relationship Specialty Start Date End Date Crystal Cedeno APNP [address] [place] [address] PCP - General NURSE PRACTITIONER 01/05/22 documented as of this encounter
--- OUTSIDE RECORDS SUMMARY | 2024-10-07 02:48 | XMS_ITS | Encounter Summary ---
Author Organization [facility] Address [address] [place] [address]. [place], [place] [address] [place] [address] Care Team Providers Care Power Truck Driver Name Role Phone Crystal Cedeno Primary Care Provider [phone] Encounter Details Date Type Department Care Team (Late st Contact Info) Description 05/02/2022 [employer] Message Enc [facility] Medical Group Orthopedic & Sports Medicine - [place] [address] [place], [place] [phone] Arnel Long MD [address] [place], [place] [address] [phone] Extension on short term disability Social History Tobacco Use Types Packs/Day Years [...] documented as of this encounter Care Teams Power Truck Driver Relationship Specialty Start Date End Date Crystal Cedeno APNP [address] [place], [place] [phone] PCP - General NURSE PRACTITIONER 01/05/22 documented as of this encounter
--- OUTSIDE RECORDS SUMMARY | 2024-10-07 02:48 | XMS_ITS | Encounter Summary ---
Author Organization [facility] Address [address] [place] [address]. [place], [place] [address] [place] [address] Care Team Providers Care Wool Washer Feeder Name Role Phone Crystal Cedeno Primary Care Provider [phone] Encounter Details Date Type Department Care Team (Late st Contact Info) Description 08/15/2022 Entech Solart Message Enc [facility] Medical Group Family and Sports Medicine - [place] [address] [place] [address] Crystal Cedeno APNP [address] [place] [address] 350 For Crystal please Social History Tobacco Use Types Packs/Day Years [...] documented as of this encounter Care Teams Wool Washer Feeder Relationship Specialty Start Date End Date Crystal Cedeno APNP [address] [place] [address] PCP - General NURSE PRACTITIONER 01/05/22 documented as of this encounter
--- OUTSIDE RECORDS SUMMARY | 2024-10-07 02:48 | XMS_ITS | Encounter Summary ---
Author Organization [facility] Address [address] [place] [address]. [place], [place] [address] [place] [address] Care Team Providers Care Cash Accountant Name Role Phone Crystal Cedeno Primary Care Provider [phone] Encounter Details Date Type Department Care Team (Late st Contact Info) Description 04/19/2022 Data Expeditiont Message Enc [facility] Medical Group Orthopedic & Sports Medicine - [place] [address] [place], [place] [phone] Arnel Long MD [address] [place], [place] [phone] Unable to work Social History Tobacco Use Types Packs/Day Years [...] documented as of this encounter Care Teams Cash Accountant Relationship Specialty Start Date End Date Crystal Cedeno APNP [address] [place], [place] [phone] PCP - General NURSE PRACTITIONER 01/05/22 documented as of this encounter
--- OUTSIDE RECORDS SUMMARY | 2024-10-07 02:48 | XMS_ITS | Encounter Summary ---
Author Organization [facility] Address [address] [place] [address]. [place], [place] [address] [place] [address] Care Team Providers Care Automatic Bandsaw Tender Name Role Phone Crystal Cedeno Primary Care Provider [phone] Encounter Details Date Type Department Care Team (Late st Contact Info) Description 04/09/2022 Estrela Digitalt Message Enc [facility] Medical Group Family and Sports Medicine - [place] [address] [place] [address] Crystal Cedeno APNP [address] [place] [address] [phone] Work letter Social History Tobacco Use Types Packs/Day Years [...] documented as of this encounter Care Teams Automatic Bandsaw Tender Relationship Specialty Start Date End Date Crystal Cedeno APNP [address] [place] [address] PCP - General NURSE PRACTITIONER 01/05/22 documented as of this encounter
--- OUTSIDE RECORDS SUMMARY | 2024-10-07 02:48 | XMS_ITS | Encounter Summary ---
Author Organization [facility] Address [address] [place] [address]. [place], [place] [address] [place] [address] Care Team Providers Care Repairer And Checker Name Role Phone Crystal Cedeno Primary Care Provider [phone] Encounter Details Date Type Department Care Team (Late st Contact Info) Description 09/11/2022 Dialst Message Enc [facility] Medical Group Family and Sports Medicine - [place] [address] [place] [address] Crystal Cedeno APNP [address] [place] [address] 10 Weight loss surgery Social History Tobacco Use Types Packs/Day Years [...] Coronavirus/COVID-19? No / Unsure 08/24/2022 8:13 AM CYCLING INSTRUCTOR documented as of this encounter Plan of Treatment Not on file documented as of this encounter Visit Diagnoses Not on filedocumented in this encounter Additional Health Concerns Assessment Noted Time PHQ-9 Depression Total Score: 15 022 10:50 AM CDT documented as of this encounter Care Teams Repairer And Checker Relationship Specialty Start Date End Date Crystal Cedeno APNP [address] [place], [place] [phone] PCP - General NURSE PRACTITIONER 01/05/22 documented as of this encounter
--- OUTSIDE RECORDS SUMMARY | 2024-10-07 02:48 | XMS_ITS | Encounter Summary ---
Author Organization [facility] Address [address] [place] [address]. [place], [place] [address] [place] [address] Care Team Providers Care Silk Screen Etcher Name Role Phone Crystla Cedeno Primary Care Provider [phone] Encounter Details Date Type Department Care Team (Late st Contact Info) Description 02/01/2022 Dermirat Message Enc [facility] Medical Group Family and Sports Medicine - [place] [address] [place] [address] Crystal Cedeno APNP [address] [place] [address] Foot pain Social History Tobacco Use Types Packs/Day Years [...] documented as of this encounter Care Teams Silk Screen Etcher Relationship Specialty Start Date End Date Crystal Cedeno APNP [address] [place] [address] PCP - General NURSE PRACTITIONER 01/05/22 documented as of this encounter
--- OUTSIDE RECORDS SUMMARY | 2024-10-07 02:48 | XMS_ITS | Encounter Summary ---
Author Organization [facility] Address [address] [place] [address]. [place], [place] [address] [place] [address] Care Team Providers Care Rice Dryer Mechanic Name Role Phone Crystal Cedeno Primary Care Provider Encounter Details Date Type Department Care Team (Latest Contact Info) Description 04/06/2022 5:15 PM CDT - 04/06/2022 11:59 PM CDT Hospital Encounter [facility] [place] [address] Crystal Cedeno APNP [address] [place], [place] [phone] Discharge Disposition: Home or Self Care (Routine [...] AM CDT documented as of this encounter Medications at Time of Discharge Levonorgestrel (MIRENA, 52 MG, IU) celecoxib (CELEBREX) 100 MG capsuleIndications: Bilateral foot pain Take 1 capsule (100 mg total) by mouth 2 (two) times daily for 30 days. 60 capsule 04/06/2022 2 diclofenac EC 75 MG tablet Take 75 mg by mouth 2 (two) times daily. 02/24/2022 2 FLUoxetine 20 MG capsuleIndications: Anxiety and [...] 04/06/2022 2 documented as of this encounter Progress Notes * DODIE Bal - 04/06/2022 5:15 PM CDT Spoke with patient regarding results. XR of right foot showed slight prominence between the articulation between the middle cuneiform and second metatarsal. This could relate to Lisfranc injury. Willobtain Weightbearing views and place pt on non weight bearing restriction. documented in this encounter Plan of Treatment Not on file documented as of this encounter Procedures Procedure Name Priority Date/Time Associated Diagnosis Comments XR FOOT RT 3V Routine 04/06/2022 5:28 PM CDT Injury of right foot, initial encounter documented in this encounter Results * XR FOOT RT [...] Diagnoses Diagnosis Injury of right foot, initial encounter documented in this encounter Additional Health Concerns Assessment Noted Time PHQ-9 Depression Total Score: 15 022 10:50 AM CDT documented as of this encounter Care Teams Rice Dryer Mechanic Relationship Specialty Start Date End Date Crystal Cedeno APNP [address] [place] [address] PCP - General NURSE PRACTITIONER 01/05/22 documented as of this encounter
--- OUTSIDE RECORDS SUMMARY | 2024-10-07 02:48 | XMS_ITS | Encounter Summary ---
Author Organization [facility] Address [address] [place] [address]. [place] [address] [place] [address] Care Team Providers Care Quality Auditor Name Role Phone Crystal Cedeno Primary Care Provider [phone] Reason for Visit * Reason Onset Date Comments Medication Problem 08/31/2022 Encounter Details Date Type Department Care Team (Late st Contact Info) Description 08/31/2022 Telephone [facility] Medical Group Family and Sports Medicine - [place] [address] [place] [address] Crystal Cedeno APNP [address] [place] [address] 514 Medication Problem Social History Tobacco Use Types Packs/Day Years [...] Coronavirus/COVID-19? No / Unsure 08/24/2022 8:13 AM YARD SPECIALIST documented as of this encounter Progress Notes * Ayanna Tamayo MA - 08/31/2022 10:34 AM CST Script sent to Rx. SPECIALIST * Rossana Haji MA - 08/31/2022 10:20 AM CST Pt called need resubmission of Mounjaro. Pharmacy had cancelled order when pt ins refused to cover med. Pt wants to use coupon to receive med. SPECIALIST documented in this encounter Plan of Treatment Not on file documented as of this encounter Visit Diagnoses Diagnosis Class 3 severe obesity due to excess calories without serious comorbidity with body mass index (BMI) of 50.0 to 59.9 in adult ([facility]/HCC [facility]HCC) documented in this encounter Additional Health Concerns Assessment Noted Time PHQ-9 Depression Total Score: 15 022 10:50 AM CDT documented as of this encounter Care Teams Quality Auditor Relationship Specialty Start Date End Date Crystal Cedeno APNP [address] [place] [address] PCP - General NURSE PRACTITIONER 01/05/22 documented as of this encounter
--- OUTSIDE RECORDS SUMMARY | 2024-10-07 02:48 | XMS_ITS | Encounter Summary ---
Author Organization [facility] Address [address] [place] [address]. [place], [place] [address] [place] [address] Care Team Providers Care Substation Operator Transforming Name Role Phone Crystal Cedeno Primary Care Provider [phone] Encounter Details Date Type Department Care Team (Latest Contact Info) Description 09/27/2022 Travel Social History Tobacco Use Types Packs/Day [...] Coronavirus/COVID-19? No / Unsure 09/27/2022 8:42 AM CAMP COUNSELOR documented as of this encounter Plan of Treatment Not on file documented as of this encounter Visit Diagnoses Not on filedocumented in this encounter Additional Health Concerns Assessment Noted Time PHQ-9 Depression Total Score: 15 022 10:50 AM CDT documented as of this encounter Care Teams Substation Operator Transforming Relationship Specialty Start Date End Date Crystal Cedeno APNP [address] [place] [address] PCP - General NURSE PRACTITIONER 01/05/22 documented as of this encounter
--- OUTSIDE RECORDS SUMMARY | 2024-10-07 02:48 | XMS_ITS | Encounter Summary ---
Author Organization [facility] Address [address] [place] [address]. [place], [place] [address] [place] [address] Care Team Providers Care Oiler Helper Name Role Phone Crystal Cedeno Primary Care Provider [phone] Encounter Details Date Type Department Care Team (Late st Contact Info) Description 02/01/2022 Applied Bioresearcht Message Enc [facility] Medical Group Family and Sports Medicine - [place] [address] [place] [address] Crystal Cedeno APNP [address] [place] [address] [phone] Anil Social History Tobacco Use Types Packs/Day Years [...] documented as of this encounter Care Teams Oiler Helper Relationship Specialty Start Date End Date Crystal Cedeno APNP [address] [place] [address] PCP - General NURSE PRACTITIONER 01/05/22 documented as of this encounter
--- OUTSIDE RECORDS SUMMARY | 2024-10-07 02:48 | XMS_ITS | Encounter Summary ---
Author Organization [facility] Address [address] [place] [address]. [place], [place] [address] [place] [address] Care Team Providers Care Jig Operator Name Role Phone Crystal Cedeno Primary Care Provider [phone] Encounter Details Date Type Department Care Team (Latest Contact Info) Description 02/09/2022 Travel Social History Tobacco Use Types Packs/Day [...] documented as of this encounter Care Teams Jig Operator Relationship Specialty Start Date End Date Crystal Cedeno APNP [address] [place] [address] PCP - General NURSE PRACTITIONER 01/05/22 documented as of this encounter
--- OUTSIDE RECORDS SUMMARY | 2024-10-07 02:48 | XMS_ITS | Encounter Summary ---
Author Organization [facility] Address [address] [place] [address]. [place], [place] [address] [place] [address] Care Team Providers Care Pulling Machine Operator Name Role Phone Crystal Cedeno Primary Care Provider [phone] Encounter Details Date Type Department Care Team (Latest Contact Info) Description 04/20/2022 Travel Social History Tobacco Use Types Packs/Day [...] documented as of this encounter Care Teams Pulling Machine Operator Relationship Specialty Start Date End Date Crystal Cedeno APNP [address] [place] [address] PCP - General NURSE PRACTITIONER 01/05/22 documented as of this encounter
--- OUTSIDE RECORDS SUMMARY | 2024-10-07 02:48 | XMS_ITS | Encounter Summary ---
Author Organization [facility] Address [address] [place] [address]. [place], [place] [address] [place] [address] Care Team Providers Care Visual Artist Name Role Phone Crystal Cedeno Primary Care Provider [phone] Reason for Referral * Consultation/Treatment (Urgent) - Closed Specialty Diagnoses / Procedures Referred By Contac t Referred To Contact ORTHOPAEDICS Diagnoses Lisfranc dislocation, right, initial encounter Crystal Cedeno APNP [address] [place] [address] Phone: tel: fax: Arnel Long MD [address] [place] [address] Phone: tel: fax: Referral ID Status Reason Start Date Expiration Date V isits Requested Visits Authorized [id number] Closed Specialty Services 04/08/2022 05/10/2023 100 100 Scheduling Instructions Lisfranc injury. Pt is nonweight bearing, gave crutches and walking boot. Please let me know if you would like for MRI to be ordered prior to Ortho appt. Encounter Details Date Type Department Care Team (Late st Contact Info) Description 04/08/2022 Orders Only [facility] Medical Group Family and Sports Medicine - [place] [address] [place] [address] Crystal Cedeno APNP [address] [place] [address] Social History Tobacco Use Types Packs/Day Years [...] as of this encounter Plan of Treatment Scheduled Referrals Name Type Priority Associated Diagnoses Orde r Schedule Ambulatory [facility] Referral Routine Lisfranc dislocation, right, initial encounter Ordered: 04/08/2022 documented as of this encounter Visit Diagnoses Diagnosis Lisfranc dislocation, right, initial encounter- Primary documented in this encounter Additional Health Concerns Assessment Noted Time PHQ-9 Depression Total Score: 15 022 10:50 AM CDT documented as of this encounter Care Teams Visual Artist Relationship Specialty Start Date End Date Crystal Cedeno APNP [address] [place] [address] PCP - General NURSE PRACTITIONER 01/05/22 documented as of this encounter
--- OUTSIDE RECORDS SUMMARY | 2024-10-07 02:48 | XMS_ITS | Encounter Summary ---
Author Organization [facility] Address [address] [place] [address]. [place], [place] [address] [place] [address] Care Team Providers Care Sheet Metal Former Name Role Phone Crystal Cedeno Primary Care Provider [phone] Encounter Details Date Type Department Care Team (Late st Contact Info) Description 01/10/2022 Emu Solutionst Message Enc [facility] Medical Group Family and Sports Medicine - [place] [address] [place] [address] Crystal Cedeno APNP [address] [place] [address] [phone]- Anil Social History Tobacco Use Types Packs/Day [...] documented as of this encounter Care Teams Sheet Metal Former Relationship Specialty Start Date End Date Crystal Cedeno APNP [address] [place] [address] PCP - General NURSE PRACTITIONER 01/05/22 documented as of this encounter
--- OUTSIDE RECORDS SUMMARY | 2024-10-07 02:48 | XMS_ITS | Encounter Summary ---
Author Organization [facility] Address [address] [place] [address]. [place], [place] [address] [place] [address] Care Team Providers Care Electrician Helper Powerhouse Name Role Phone Crystal Cedeno Primary Care Provider [phone] Encounter Details Date Type Department Care Team (Late st Contact Info) Description 05/21/2022 Foodynt Message Enc [facility] Medical Group Family and Sports Medicine - [place] [address] [place] [address] Crystal Cedeno APNP [address] [place] [address] 40 New medication Social History Tobacco Use Types Packs/Day Years [...] documented as of this encounter Care Teams Electrician Helper Powerhouse Relationship Specialty Start Date End Date Crystal Cedeno APNP [address] [place], [place] [address] PCP - General NURSE PRACTITIONER 01/05/22 documented as of this encounter
--- OUTSIDE RECORDS SUMMARY | 2024-10-07 02:48 | XMS_ITS | Encounter Summary ---
Author Organization [facility] Address [address] [place] [address]. [place], [place] [address] [place] [address] Care Team Providers Care Mincemeat Maker Name Role Phone Crystal Cedeno Primary Care Provider [phone] Encounter Details Date Type Department Care Team (Late st Contact Info) Description 04/02/2022 ClearTaxt Message Enc [facility] Medical Group Family and Sports Medicine - [place] [address] [place] [address] Crystal Cedeno APNP [address] [place] [address] My feet Social History Tobacco Use Types Packs/Day Years [...] documented as of this encounter Care Teams Mincemeat Maker Relationship Specialty Start Date End Date Crystal Cedeno APNP [address] [place] [address] PCP - General NURSE PRACTITIONER 01/05/22 documented as of this encounter
--- OUTSIDE RECORDS SUMMARY | 2024-10-07 02:48 | XMS_ITS | Encounter Summary ---
Author Organization [facility] Address [address] [place] [address]. [place], [place] [address] [place] [address] Care Team Providers Care Dining Room Host Name Role Phone Miladis Sosa Primary Care Provider [phone] Encounter Details Date Type Department Care Team (Latest Contact Info) Description 11/22/2021 Travel Social History Tobacco Use Types Packs/Day [...] Coronavirus/COVID-19? No / Unsure 11/22/2021 2:04 PM PROTECTIVE SERVICES OFFICER documented as of this encounter Plan of Treatment Not on file documented as of this encounter Visit Diagnoses Not on filedocumented in this encounter Additional Health Concerns Assessment Noted Time PHQ-9 Depression Total Score: 0 11/22/19 22 2:38 PM PROTECTIVE SERVICES OFFICER documented as of this encounter Care Teams Dining Room Host Relationship Specialty [place] [address] [place] [address] PCP - General PHYSICIAN DIRECTOR COMPENSATION 02/10/20 01/04/22 documented as of this encounter
--- OUTSIDE RECORDS SUMMARY | 2024-10-07 02:48 | XMS_ITS | Encounter Summary ---
Author Organization [facility] Address [address] [place] [address]. [place], [place] [address] [place] [address] Care Team Providers Care Bait Maker Name Role Phone Crystal Cedeno Primary Care Provider [phone] Reason for Referral * Imaging (Emergency) - Closed Specialty Diagnoses / Procedures Referred By Deshawn chávez Referred To Contact RADIOLOGY Diagnoses Right foot pain Procedures MRI FOOT RT WO CON Maury Rand MD [address] [place] [address] Phone: tel: fax: Referral ID Status Reason Start Date Expiration Date Visits Re quested Visits Authorized [id number] Closed 04/18/2022 08/16/2022 1 1 Reason for Visit * Reason Comments New Patient Right foot FX * Consultation/Treatment (Urgent) - Closed Specialty Diagnoses / Procedures Referred By Deshawn chávez Referred To Contact ORTHOPAEDICS Diagnoses Lisfranc dislocation, right, initial encounter Crystal Cedeno APNP [address] [place] [address] Phone: tel: fax: Maury Rand MD [address] [place] [address] Phone: tel: fax: Referral ID Status Reason Start Date Expiration Date V isits Requested Visits Authorized [id number] Closed Specialty Services 04/08/2022 05/10/2023 100 100 Encounter Details Date Type Department Care Team (Late st Contact Info) Description 04/18/2022 1:20 PM CDT Office Visit [facility] Medical Group Orthopedic & Sports Medicine - [place] [address] [place] [address] Maury Rand MD [address] [place] [address] New Patient (Right foot FX) Social History Tobacco Use Types Packs/Day Years [...] Sign Reading Time Taken Comments Blood Pressure 117/69 04/18/2022 1:25 PM CDT Pulse 101 04/18/2022 1:25 PM CDT Temperature 37.2 ??C (99 ??F) 04/18/2022 1:25 PM CDT Respiratory Rate - - Oxygen Saturation 100% 04/18/2022 1:25 PM CDT Inhaled Oxygen Concentration - - Weight 136.8 kg (301 lb 9.6 oz) 04/18/2022 1:25 PM CDT Height 167.6 cm (5' 6 ) 04/18/2022 1:25 PM CDT Body Mass Index 48.68 04/18/2022 1:25 PM CDT documented in this encounter Progress Notes * Maury Rand MD - 04/18/2022 1:20 PM CDT Images from the original note were not included. Office Visit Reason for Visit: New Patient (Right foot FX) History of Present Illness: She is here for evaluation of her right foot. She had a episode of what she thought Planter fasciitis several weeks ago. She saw a package center supervisor for this. She then had an injury on 04/06/2022. She says she stepped down hard when she was stepping over something. She felt acute pain. She was seen at her PCP office. X- rays showed a possible abnormality at the second TMT joint. Repeat weightbearing filmswere done which showed bilateral abnormality of the second TMT joint. She has been nonweightbearing. 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 Vitals: Filed Vitals: 04/18/22 1325 BP: 117/69 Pulse: 101 Temp: 99 ??F (37.2 ??C) SpO2: 100% Weight: (!) 136.8 kg (301 lb 9.6 oz) Height: 5' 6 (1.676 m) Physical Exam: Physical Exam Constitutional: She is oriented to person, place, and time. She appears well- developed and well-nourished. HENT: Head: Normocephalic. Eyes: EOM are normal. Cardiovascular: Intact distal pulses. Pulmonary/Chest: Effort normal. No respiratory distress. Neurological: She is alert and oriented to person, place, and time. Psychiatric: She has a normal mood and affect. Ortho: She is somewhat tender at the first and second tarsometatarsal joints. No swelling I can appreciate. She has bilateral pes planus. Somewhat tender at the plantar fascial insertion on the right as well. No motor deficit. X-rays from 04/06 and 04/07 are reviewed. These show gapping between the first and second metatarsal bases on both feet. The x-ray from 713 does show some asymmetry of the second tarsometatarsal joint. No image results found. Assessment: Possible Lisfranc injury Plan: She is about 12 days out from her injury. We would like to establish whether this is an acute Lisfranc injury or not, ZIGGY. I ordered a stat MRI. She should continue nonweightbearing for the time being. She needs to stay off work. Procedures Summary: Leit was seen today for new patient. Diagnoses and all orders for this visit: Right foot pain ROS: ROS Medications: Current Outpatient Medications: ??? Acetaminophen-Codeine (TYLENOL/CODEINE #3) 300-30 MG tablet, Take 1 tablet by mouth every 4 (four) hours as needed for Pain. Indications: Acute Pain < 7 Day Supply, Chronic Pain, Disp: 28 tablet, Rfl: 0 ??? celecoxib [...] Paternal Grandfather Scott Mcallister MAURY RAND MD 04/18/2022 documented in this encounter Plan of Treatment Not on file documented as of this encounter Results * MRI FOOT RT [...] this encounter Visit Diagnoses Diagnosis Right foot pain- Primary Pain in limb Right foot pain Pain in limb documented in this encounter Additional Health Concerns Assessment Noted Time PHQ-9 Depression Total Score: 15 022 10:50 AM CDT documented as of this encounter Care Teams Bait Maker Relationship Specialty Start Date End Date Crystal Cedeno APNP [address] [place] [address] PCP - General NURSE PRACTITIONER 01/05/22 documented as of this encounter
--- OUTSIDE RECORDS SUMMARY | 2024-10-07 02:48 | XMS_ITS | Encounter Summary ---
Author Organization [facility] Address [address] [place] [address]. [place], [place] [id number] [place] [address] Care Team Providers Care Sawmill Moulder Operator Name Role Phone Crystal Cedeno Primary Care Provider [phone] Reason for Referral * Consultation (Routine) - Closed Specialty Diagnoses / Procedures Referred By Deshawn chávez Referred To Contact PODIATRY/SURGERY Diagnoses Metatarsalgia of left foot Crystal Cedeno APNP [address] [place] [address] Phone: tel:[phone] fax: Wenceslao Birmingham DPM [address] [place] [address] Phone: tel: fax: Referral ID Status Reason Start Date Expiration Date V isits Requested Visits Authorized [id number] Closed Specialty Services 02/09/2022 03/12/2023 99 99 Scheduling Instructions Please send to [facility] for flat feet and metarsalgia Reason for Visit * Reason Comments Foot Pain Lateral Lt foot pain off and on, tender to touch, has tried different shoes, ice, elevation Encounter Details Date Type Department Care Team (Late st Contact Info) Description 02/09/2022 8:20 AM CDT Office Visit [facility] Family and Sports Medicine - [place] [address] [place] [address] Crystal Cedeno, DODIE [address] [place] [address] Foot Pain (Lateral Lt foot pain off and on, tender to touch, has tried different shoes, ice, elevation) Social History Tobacco Use Types Packs/Day Years [...] Sign Reading Time Taken Comments Blood Pressure 104/68 02/09/2022 8:23 AM CDT Pulse 74 02/09/2022 8:23 AM CDT Temperature 36.6 ??C (97.9 ??F) 02/09/2022 8:23 AM CD T Respiratory Rate 20 02/09/2022 8:23 AM CDT Oxygen Saturation 99% 02/09/2022 8:23 AM CDT Inhaled Oxygen Concentration - - Weight 136.1 kg (300 lb) 02/09/2022 8:23 AM CDT Height 167.6 cm (5' 6 ) 02/09/2022 8:23 AM CDT Body Mass Index 48.42 02/09/2022 8:23 AM CDT documented in this encounter Progress Notes * Paty Hernandez CMA - 02/09/2022 8:20 AM CDT * Crystal Cedeno, APNP - 02/09/2022 8:20 AM CDT Images from the original note were not included. Office Note Reason for Visit: Foot Pain (Lateral Lt foot pain off and on, tender to touch, has tried different shoes, ice, elevation) History of Present Illness: Here for lateral left foot pain that worsens on and off over the past few years. Patient reports that she has always been flat-footed with very little arch. She also reports that after her her feet flattened even more. Occasionally her foot is tender to touch. She has tried multiple different shoes, ice and elevation of feet. Patient understands that her weight may have something to do with this as well but it is difficult for her to exercise due to pain. ROS: Review of Systems Constitutional: Negative for chills and fever. HENT: Negative for ear pain and sore throat. Respiratory: Negative for cough, shortness of breath and wheezing. Cardiovascular: Negative for chest pain and palpitations. Gastrointestinal: Negative for blood in stool, constipation, diarrhea, nausea and vomiting. Genitourinary: Negative for dysuria. Musculoskeletal: Negative for myalgias. Left lateral foot pain Neurological: Negative for focal weakness, weakness and headaches. Psychiatric/Behavioral: Negative for depression and suicidal ideas. Medications: Current Outpatient Medications: ??? FLUoxetine 20 [...] Sexual activity: Yes Partners: Male control/protection: I.U.D. Other Topics Concern ??? Not [...] Musculoskeletal: General: Normal range of motion. Comments: Flat-footed bilaterally, tenderness to lateral left foot Lymphadenopathy: Cervical: No cervical adenopathy. Skin: General: Skin is warm and dry. Findings: No rash. Neurological: Mental Status: She is alert and oriented to person, place, and time. Cranial Nerves: No cranial nerve deficit. Gait: Gait is intact. Psychiatric: Mood and Affect: Mood and affect normal. Cognition and Memory: Memory normal. Judgment: Judgment normal. Filed Vitals: 02/09/22 0823 BP: 104/68 Pulse: 74 Resp: 20 Temp: 97.9 ??F (36.6 ??C) TempSrc: Temporal SpO2: 99% Weight: 136.1 kg (300 lb) Height: 5' 6 (1.676 m) Body mass index is 48.42 kg/m??. Diagnoses/Plan: 1. Metatarsalgia of left foot Ambulatory referral to Podiatry (OTHER) 2. Flat foot (pes planus) (acquired), left foot 3. Flat foot (pes planus) (acquired), right foot There are no discontinued medications. Discussion: Will refer patient to podiatry for possible orthotic inserts. Recommend patient to wear supportiveshoes is much as possible. Try to wear supportive shoe with activity in the house as well versus going barefoot. Patient given home exercises to help ease pain. Patient may also take ibuprofen as needed. DODIE LIZ 02/09/2022 documented in this encounter Plan of Treatment Scheduled Referrals Name Type Priority Associated Diagnoses Orde r Schedule Ambulatory referral to Podiatry (OTHER) Referral Routine Metatarsalgia of left foot Ordered: 02/09/2022 documented as of this encounter Visit Diagnoses Diagnosis Metatarsalgia of left foot- Primary Enthesopathy of ankle and tarsus, unspecified Flat foot (pes planus) (acquired), left foot Flat foot (pes planus) (acquired), right foot documented in this encounter Additional Health Concerns Assessment Noted Time PHQ-9 Depression Total Score: 15 01/05/2 022 10:50 AM CDT documented as of this encounter Care Teams Sawmill Moulder Operator Relationship Specialty Start Date End Date Crystal Cedeno APNP [address] [place] [address] PCP - General NURSE PRACTITIONER 01/05/22 documented as of this encounter
--- OUTSIDE RECORDS SUMMARY | 2024-10-07 02:48 | XMS_ITS | Encounter Summary ---
Author Organization [facility] Address [address] [place] [address]. [place] [id number] Care Team Providers Care Laminator Hand Name Role Phone Crystal Cedeno Primary Care Provider [phone] Encounter Details Date Type Department Care Team (Latest Contact Info) Description 05/10/2022 Scan [facility] INFO [facility] Scanned, Documents [...] documented as of this encounter Care Teams Laminator Hand Relationship Specialty Start Date End Date Crystal Cedeno APNP [address] [place], [place] [address] [address] PCP - General NURSE PRACTITIONER 01/05/22 documented as of this encounter
--- OUTSIDE RECORDS SUMMARY | 2024-10-07 02:48 | XMS_ITS | Encounter Summary ---
Author Organization [facility] Address [address] [place] [address]. [place], [place] [address] [place] [address] Care Team Providers Care Upholstered Goods Crafter Name Role Phone Crystal Cedeno Primary Care Provider [phone] Encounter Details Date Type Department Care Team (Late st Contact Info) Description 04/08/2022 Debt Resolvet Message Enc [facility] Family and Sports Medicine - [place] [address] [place] [address] Crystal Cedeno APNP [address] [place] [address] First night with the boot Social History Tobacco Use Types Packs/Day Years [...] 6:15 AM CDT Sexual Orientation Bisexual 02/07/2022 6 :15 AM CDT COVID-19 Exposure Response Date Recorded In the last 10 days, have yo u been in contact with someone who was confirmed or suspected to have Coronavirus/COVID-19? No / Unsure 04/07/2022 2:07 PM CDT documented as of this encounter Progress Notes * DODIE Bal - 04/08/2022 11:55 AM CDTFrom: Leti Soto To: Crystal Cedeno Sent: 04/08/2022 6:53 AM CDT Subject: First night with the boot Yesterday and last night was a little rough. Getting around our house with crutches was a bit challenging to be honest. I was looking online and saw there???s non weight bearing knee scooters with a basket. Is that something I can get through the insurance like the boot and crutches or do I just buy that out r ight on [employer]? Pain level: ranged from a 5-8 all evening/night. I do think some pain meds PRN will be beneficial especially for sleeping. -Yesenia documented in this encounter Plan of Treatment Not on file documented as of this encounter Visit Diagnoses Diagnosis BMI 40.0-44.9, adult ([facility])- Primary Body Mass Index 40.0-44.9, adult Lisfranc dislocation, right, initial encounter Right foot pain Pain in limb documented in this encounter Additional Health Concerns Assessment Noted Time PHQ-9 Depression Total Score: 15 022 10:50 AM CDT documented as of this encounter Care Teams Upholstered Goods Crafter Relationship Specialty Start Date End Date Crystal Cedeno APNP [address] [place] [address] PCP - General NURSE PRACTITIONER 01/05/22 documented as of this encounter
--- OUTSIDE RECORDS SUMMARY | 2024-10-07 02:48 | XMS_ITS | Encounter Summary ---
Author Organization [facility] Address [address] [place] [address]. [place], [place] [address] [place] [address] Care Team Providers Care Drone Operator Name Role Phone Crystal Cedeno Primary Care Provider [phone] Encounter Details Date Type Department Care Team (Latest Contact Info) Description 01/05/2022 - 01/05/2022 11:59 PM CDT Hospital [facility] [address] [place] [address] Crystal Cedeno APNP [address] [place] [address] Discharge Disposition: Home or Self Care (Routine [...] of Discharge Levonorgestrel (MIRENA, 52 MG, IU) FLUoxetine 20 MG capsule Take 60 mg by mouth daily. 11/07/2021 2 lisdexamfetamine (VYVANSE) 40 MG capsuleIndications: Attention deficit hyperactivity disorder (ADHD), combined type Take 1 capsule (40 mg total) by mouth every morning. 30 capsule 01/05/2022 2 documented as of this encounter Plan of Treatment Not on file documented as of this encounter Visit Diagnoses Not on filedocumented in this encounter Additional Health Concerns Assessment Noted Time PHQ-9 Depression Total Score: 15 022 10:50 AM CDT documented as of this encounter Care Teams Drone Operator Relationship Specialty Start Date End Date Crystal Cedeno APNP [address] [place] [address] PCP - General NURSE PRACTITIONER 01/05/22 documented as of this encounter
--- OUTSIDE RECORDS SUMMARY | 2024-10-07 02:48 | XMS_ITS | Encounter Summary ---
Author Organization [facility] Address [address] [place] [address]. [place], [place] [address] [place] [address] Care Team Providers Care Fisher Quahog Name Role Phone Crystal Cedeno Primary Care Provider [phone] Reason for Visit * Reason Comments Med Refills Vyvanse Foot Pain Discuss options Encounter Details Date Type Department Care Team (Late st Contact Info) Description 04/06/2022 9:00 AM CDT Office Visit [facility] Family and Sports Medicine - [place] [address] [place] [address] Crystal Cedeno APNP [address] [place], [place] [id number] Med Refills (Vyvanse ); Foot Pain (Discuss options ) Social History Tobacco Use Types Packs/Day [...] Sign Reading Time Taken Comments Blood Pressure 114/82 04/06/2022 8:49 AM CDT Pulse 76 04/06/2022 8:49 AM CDT Temperature 36.7 ??C (98.1 ??F) 04/06/2022 8:49 AM CD T Respiratory Rate 21 04/06/2022 8:49 AM CDT Oxygen Saturation 98% 04/06/2022 8:49 AM CDT Inhaled Oxygen Concentration - - Weight 136.5 kg (301 lb) 04/06/2022 8:49 AM CDT Height 167.6 cm (5' 6 ) 04/06/2022 8:49 AM CDT Body Mass Index 48.58 04/06/2022 8:49 AM CDT documented in this encounter Progress Notes * DODIE Liz - 04/06/2022 9:00 AM CDT Images from the original note were not included. Office Note Reason for Visit: Med Refills (Vyvanse ) and Foot Pain (Discuss options ) History of Present Illness: Here for follow-up on bilateral foot pain. 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 She did see a athletic scout and she was fitted for shoe inserts as her arches and her feet are nonexistent. Patient reports her feet became flat after 3 years ago. She also wears compression stockings to work. However, it will be at least 3 weeks before her shoe inserts are ready. The past couple weeks her feet have severe pain and it is causing her to have difficulty getting through her 12-hour shift. Right foot has a constant throbbing pain in the heel along with a shooting pain through the middle foot to ankle. Range of motion of foot also causes shooting pain. On the left foot she has pain to the lateral side of foot with palpation or weightbearing. Patient is also doing daily stretches and exercises for her feet to help with Planter fasciitis and tendinitis of feet. Patient is also here for medication refill of Vyvanse. She is currently taking 40 mg daily and reports that this is helping with focus. She denies any side effects. PDMP reviewed. CSA: 01/05/22. ROS: Review of Systems Constitutional: Negative for chills and fever. HENT: Negative for ear pain and sore throat. Respiratory: Negative for cough, shortness of breath and wheezing. Cardiovascular: Negative for chest pain and palpitations. Gastrointestinal: Negative for blood in stool, constipation, diarrhea, nausea and vomiting. Genitourinary: Negative for dysuria. Musculoskeletal: Negative for myalgias. Bilateral foot pain, right foot heel pain and arch pain, left foot lateral tendon pain Neurological: Negative for focal weakness, weakness and headaches. Psychiatric/Behavioral: Negative for depression and suicidal ideas. Poor focus Medications: Current Outpatient Medications: ??? celecoxib (CELEBREX) 100 MG capsule, Take 1 capsule (100 mg total) by mouth 2 (two) times dailyfor 30 days., Disp: 60 capsule, Rfl: 0 ??? diclofenac EC 75 MG tablet, Take 75 mg by mouth 2 (two) times daily., Disp: , Rfl: ??? FLUoxetine 20 MG capsule, Take 3 [...] Wilberto Enmanuel ??? Kidney Disease Maternal Grandfather Wiblerto Enmanuel ??? Cancer Paternal Grandmother Anna Mcallister [...] Musculoskeletal: General: Normal range of motion. Comments: Bilateral foot pain, right foot heel pain with range of motion or weightbearing and arch pain, left foot lateral tendon pain with palpation Lymphadenopathy: Cervical: No cervical adenopathy. Skin: General: Skin is warm and dry. Findings: No rash. Neurological: Mental Status: She is alert and oriented to person, place, and time. Cranial Nerves: No cranial nerve deficit. Gait: Gait is intact. Psychiatric: Mood and Affect: Mood and affect normal. Cognition and Memory: Memory normal. Judgment: Judgment normal. Filed Vitals: 04/06/22 0849 BP: 114/82 Pulse: 76 Resp: 21 Temp: 98.1 ??F (36.7 ??C) TempSrc: Temporal SpO2: 98% Weight: (!) 136.5 kg (301 lb) Height: 5' 6 (1.676 m) Body mass index is 48.58 kg/m??. Diagnoses/Plan: 1. Bilateral foot pain predniSONE 10 mg tablet celecoxib (CELEBREX) 100 MG capsule 2. Attention deficit hyperactivity disorder (ADHD), combined type lisdexamfetamine (VYVANSE) 40 MG capsule 3. Flat foot (pes planus) (acquired), left foot 4. Flat foot (pes planus) (acquired), right foot 5. Tendinitis of both feet Medications Discontinued During This Encounter Medication Reason ??? lisdexamfetamine (VYVANSE) 40 MG capsule Reorder Discussion: Patient may start prednisone taper to help with inflammation of feet. Patient may also start Celebrex once daily and may increase to twice daily if helping with pain. Patient to stop any other NSAIDs. Follow-up with podiatry in 3 weeks for shoe inserts. DODIE LIZ 04/06/2022 documented in this encounter Plan of Treatment Not on file documented as of this encounter Visit Diagnoses Diagnosis Bilateral foot pain- Primary Pain in limb Attention deficit hyperactivity disorder (ADHD), combined type Flat foot (pes planus) (acquired), left foot Flat foot (pes planus) (acquired), right foot Tendinitis of both feet documented in this encounter Additional Health Concerns Assessment Noted Time PHQ-9 Depression Total Score: 15 022 10:50 AM CDT documented as of this encounter Care Teams Fisher Quahog Relationship Specialty Start Date End Date Crystal Cedeno APNP [address] [place] [address] PCP - General NURSE PRACTITIONER 01/05/22 documented as of this encounter
--- OUTSIDE RECORDS SUMMARY | 2024-10-07 02:49 | XMS_ITS | Encounter Summary ---
Author Organization [facility] Address [address] [place] [address]. [place], [place] [address] [place] [address] Care Team Providers Care Metal Flow Coordinator Name Role Phone Miladis Sosa Primary Care Provider [phone] Reason for Visit * Reason Comments Follow Up depression, needs re fill of Wellbutrin, doing well with this Encounter Details Date Type Department Care Team (Late st Contact Info) Description 02/10/2020 9:00 AM CDT Office Visit [facility] Family & Internal Medicine [facility] [address] [place] [address] Miladis Sosa [place] [id number] [place] [address] Follow Up (depression, needs refill of Wellbutrin, doing well with this) Social History Tobacco Use Types Packs/Day Years Used Date Smoking Tobacco: Never Smokeless Tobacco: Never Alcohol Use Standard Drinks/Week Comments Yes 0 (1 standard drink = 0.6 oz pur e alcohol) PHQ-2 Answer Date Recorded PHQ-2 Score 0 10/23/2019 Comments No Sex and Gender Information Value Date Recorded Sex Assigned at Not on file Legal Sex Female 5:13 PM CDT Gender Identity Female 02/07/2022 6:15 AM CDT Sexual Orientation Bisexual 02/07/2022 6: 15 AM CDT COVID-19 Exposure Response Date Recorded In the last month, have you been in contact with someone who was confirmed or suspected to have Coronavirus / COVID-19? No / Unsure 02/10/2020 8:48 AM CDT documented as of this encounter Last Filed Vital Signs Vital Sign Reading Time Taken Comments Blood Pressure 130/78 02/10/2020 9:02 AM CDT Pulse 88 02/10/2020 9:02 AM CDT Temperature - - Respiratory Rate 18 02/10/2020 9:02 AM CDT Oxygen Saturation 98% 02/10/2020 9:02 AM CDT Inhaled Oxygen Concentration - - Weight 127.9 kg (282 lb) 02/10/2020 9:02 AM CDT Height 167.6 cm (5' 6 ) 02/10/2020 9:02 AM CDT Body Mass Index 45.52 02/10/2020 9:02 AM CDT documented in this encounter Progress Notes * YANELIS Cotton - 02/10/2020 9:00 AM CDT Images from the original note were not included. _ Reason for Visit: Follow Up (depression, needs refill of Wellbutrin, doing well with this) History of Present Illness: HPI Leti Audelia Soto is a 29-year-old female here for evaluation of her depression. She states that with COVID she is recently been having some rough days. States that she is definitely not in any position where she feels that she would harm herself or her daughter her anybody else but she feels like she gets annoyed a little bit easier than usual ROS: Review of Systems Feeling well. Denies headaches, vision or hearing problems. No recent colds or flus, denies symptoms suggestive of allergies. Denies dysphagia, heartburn or indigestion. No dyspnea or chest pain on exertion. No nausea, abdominal pain, change in bowel habits, black or bloody stools. No urinary tractsymptoms. No muscle or joint aches or pains. No foot or leg edema. No numbness, tingling,or weakness. No anxiety or depressive symptoms, Sleeping well. No significant weight gain or loss. No fatigue. Medications: Outpatient Medications Marked as Taking for the 02/10/20 encounter (Office Visit) with YANELIS Cotton Medication Sig Dispense Refill ??? buPROPion XL (WELLBUTRIN XL) 150 MG 24 hr tablet Take 3 tablets (450 mg total) by mouth daily. 90 tablet 6 Allergies Allergen Reactions ??? Tramadol Other (see comment) Shaky, increased heart rate, sweating. ??? Penicillins Rash and Unknown Past Medical History: Diagnosis Date ??? Anxiety ??? Depression Past Surgical History: Procedure Laterality Date ??? CHOLECYSTECTOMY ??? EYE SURGERY Lasic Social History Tobacco Use ??? Smoking status: Never Smoker ??? Smokeless tobacco: Never Used Substance Use Topics ??? Alcohol use: Yes ??? Drug use: Never Family History Problem Relation Name Age of Onset ??? Anxiety Mother ??? Osteoarthritis Mother ??? Diabetes Father ??? Heart Disease Father ??? Lung Disease Maternal Grandmother ??? Diabetes Maternal Grandmother ??? Diabetes Maternal Grandfather ??? Diabetes Paternal Grandfather ??? Heart Disease Paternal Grandfather Family Status Relation Name Status ??? Mother Alive ??? Father Alive ??? MGM ??? MGF ??? PGM ??? PGF Alive Physical Exam Constitutional: Patient is oriented to person, place, and time. Patient appears well-developed and well-nourished. HENT: Right Ear: External ear normal. Left Ear: External ear normal. Head: Normocephalic. Nose: Nose normal. Mouth/Throat: Oropharynx is clear and moist. Eyes: Pupils are equal, round, and reactive to light. Neck: No JVD present. No thyromegaly present. Cardiovascular: Normal rate, regular rhythm, normal heart sounds and intact distal pulses. No murmur heard. Pulmonary/Chest: No respiratory distress. Patient has no wheezes. Patient has no rales. Patient exhibits no tenderness. Abdominal: Patient exhibits no distension and no mass. There is no tenderness. There is no rebound and no guarding. Musculoskeletal: Normal range of motion. Patient exhibits no edema, tenderness or deformity. Lymphadenopathy: Patient has no cervical adenopathy. Neurological: Patient is alert and oriented to person, place, and time. Skin: No rash noted. No erythema. Psychiatric: Patient has a normal mood and affect. The behavior is normal. Thought content normal. No flowsheet data found. Vitals: 02/10/20 0902 BP: 130/78 Pulse: 88 Body mass index is 45.52 kg/m??. Diagnoses/Impression: 1. Reactive depression buPROPion XL (WELLBUTRIN XL) 150 MG 24 hr tablet Orders Placed This Encounter ??? buPROPion XL (WELLBUTRIN XL) 150 MG 24 hr tablet Recommendations and Plan: Increasing her Wellbutrin to 153 pills daily to see if this helps with her irritability she is happy with the response otherwise. She is going to go ahead and try to go every other day on the fluoxetine and discontinue it over the next couple weeks. In about 2 months Actively working on diet and exercise she is down 5 pounds since her last visit. Patient should follow annual wellness exams recommended for age and sex of patient. Items to consider but not limited included yearly annual fasting labs, colonscopy or cologuard when indicated. PSA and prostate for males. Mammogram and female exam for females, Miladis Sosa PA-C evaluated and Dr Jordan López reviewed and agrees with plan. Cosigned by Jordan López MD at 02/10/2020 10:36 AM CDT documented in this encounter Plan of Treatment Not on file documented as of this encounter Visit Diagnoses Diagnosis Reactive depression- Primary Dysthymic disorder documented in this encounter Care Teams Metal Flow Coordinator Relationship Specialty Start [place] [address] [place] [address] PCP - General PHYSICIAN IT SYSTEMS ANALYST 02/10/20 01/04/22 documented as of this encounter
--- OUTSIDE RECORDS SUMMARY | 2024-10-07 02:49 | XMS_ITS | Encounter Summary ---
Author Organization [facility] Address [address] [place] [address]. [place], [place] [address] [place] [address] Care Team Providers Care Wheelchair Van Driver Name Role Phone Jordan Ernst Primary Care Provider Encounter Details Date Type Department Care Team (Latest Contact Info) Description 01/06/2015 Abstract [facility] Medical Group Moses Barney DO [address] [id number] Social History Tobacco Use Types Packs/Day Years Used Date Smoking Tobacco: Never Assessed Comments Unknown Sex and Gender Information Value Date Recorded Sex Assigned at Not on file Legal Sex Female 5:13 PM CDT Gender Identity Female 02/07/2022 6:15 AM CDT Sexual Orientation Bisexual 02/07/2022 6: 15 AM CDT documented as of this encounter Progress Notes * Moses Barney DO - 01/06/2015 1:03 PM CDT Message Here are your lab results Your metabolic panel, cholesterol and thyroid were normal/unremarkable Let me know if you have any questions Thanks Dr Barney Verified Results Lipid Profile [id number] 08:23AM Moses Barney Test Name Result Flag Reference Cholesterol 169 mg/dL <200 Triglycerides 68 mg/dL <150 HDL Cholesterol 72 mg/dL >59 LDL Cholesterol, Calculated 83 mg/dL <100 Non HDL, Calc 97 mg/dL <130 NOTE: WHEN THE TRIGLYCERIDES ARE >200 mg/dL, NON HDL C IS A SECONDARY TARGET OF THERAPY, WITH A GOAL 30 mg/dL HIGHER THAN THE IDENTIFIED LDL C GOAL. Cholesterol/HDL Ratio 2.3 0.0-4.5 VLDL Cholesterol 14 mg/dL 5-55 Lipid Profile Comment 1 (Report) NIH CONCENSUS REPORT RECOMMENDATIONS: ADULT CHILD LOW RISK: CHOLESTEROL <200 <170 TRIGLYCERIDE <150 --- HDL >=60 --- LDL <100 <110 BORDERLINE: CHOLESTEROL 200-239 170-199 TRIGLYCERIDE 150-199 --- HDL 40-59 --- LDL 100-159 110-129 HIGH RISK: CHOLESTEROL >=240 >=200 TRIGLYCERIDE >=200 --- HDL <40 --- LDL >=160 >=130 Compr Metabolic Prof ( CMP ) [id number] 08:23AM Moses Barney Test Name Result Flag Reference Sodium (Na) 140 mmol/L 136-145 Potassium (K) 4.3 mmol/L 3.5-5.1 Chloride (Cl) 104 mmol/L 98-107 Carbon Dioxide (CO2) 26 mmol/L 22-29 Anion Gap 14 8-20 Blood Urea Nitrogen (BUN) 11 mg/dL 8-23 Creatinine 0.57 mg/dL L 0.60-1.10 Glomerular Filt Rate Calc >60 mL/min/1.73m'2 >60 Glomerular Filt Rate (AA) Calc >60 >60 NOTE: eGFR is not calculated for patients <18 years of age. This is an estimated GFR (CKD EPI) and should not be used for calculating drug doses. mL/min/1.73m'2 Glucose 91 mg/dL 70-99 Calcium 9.2 mg/dL 8.6-10.2 Total Bilirubin 0.2 mg/dL 0.2-1.2 AST/GOT 14 IU/L 0-32 ALT/GPT 12 IU/L 0-33 Alkaline Phosphatase (ALKP) 66 IU/L 35-104 Total Protein 6.7 g/dL 6.4-8.3 Albumin 4.1 g/dL 3.5-5.2 Globulin, Calc 2.6 g/dL 2.3-3.6 A:G Ratio 1.6 1.0-2.0 TSH W Reflex Free T4 [id number] 08:23AM Moses Barney Test Name Result Flag Reference TSH w Reflex Free T4 1.57 mIU/mL 0.27-4.20 FREE T4 NOT INDICATED documented in this encounter Plan of Treatment Not on file documented as of this encounter Visit Diagnoses Not on filedocumented in this encounter Care Teams Wheelchair Van Driver Relationship Specialty Start Date End Date Jordan Ernst DO [address] [place], [place] [id number] PCP - General 01/02/15 09/08/15 documented as of this encounter
--- OUTSIDE RECORDS SUMMARY | 2024-10-07 02:49 | XMS_ITS | Encounter Summary ---
Author Organization [facility] Address [address] [place] [address]. [place], [place] [address] [place] [address] Care Team Providers Care Reed Man Name Role Phone Miladis Sosa Primary Care Provider + [phone] Encounter Details Date Type Department Care Team (Latest Contact Info) Description 06/17/2021 Travel Social History Tobacco Use Types Packs/Day Years Used Date Smoking Tobacco: Never Smokeless Tobacco: Never Alcohol Use Standard Drinks/Week Comments Yes 0 (1 standard drink = 0.6 oz pur e alcohol) PHQ-2 Answer Date Recorded PHQ-2 Score - If the patient scores above 3, please move on to questions 3-9 1 06/17/2021 Comments No Sex and Gender Information Value [...] have Coronavirus / COVID-19? Unable to assess 06/17/2021 7:56 AM CDT documented as of this encounter Plan of Treatment Not on file documented as of this encounter Visit Diagnoses Not on filedocumented in this encounter Additional Health Concerns Infection Onset Date Last Indicated Resolved Time COVID-19 Rule Out 06/17/2021 06/17/2021 06/18/2021 11:00 PM CDT Assessment Noted Time PHQ-9 Depression Total Score: 1 06/17/20 21 8:51 AM CDT documented as of this encounter Care Teams Reed Man Relationship Specialty [place] [address] [place] [address] PCP - General PHYSICIAN WOOD DRILLING MACHINE OPERATOR 02/10/20 01/04/22 documented as of this encounter
--- OUTSIDE RECORDS SUMMARY | 2024-10-07 02:49 | XMS_ITS | Encounter Summary ---
Author Organization [facility] Address [address] [place] [address]. [address] [address] Care Team Providers Care Steel Rigger Name Role Phone Jordan Ernst DO Primary Care Provider [phone] Jordan Ernst DO Primary Care Provider [phone] Encounter Details Date Type Department Care Team (Latest Contact Info) Description 08/04/2014 Abstract [facility] Medical Group Social History Tobacco Use Types Packs/Day [...] on filedocumented in this encounter Care Teams Steel Rigger Relationship Specialty Start Date End Date Jordan Ernst DO [address] [place] [address] PCP - General 01/02/15 09/08/15 Jordan Ernst DO [address] [place] [address] PCP - General 12/13/10 01/01/15 documented as of this encounter
--- OUTSIDE RECORDS SUMMARY | 2024-10-07 02:49 | XMS_ITS | Encounter Summary ---
Author Organization [facility] Address [address] [place] [address]. [place], [place] [address] [place] [address] Care Team Providers Care Director Of Volunteer Services Name Role Phone Miladis Sosa Primary Care Provider + [phone] Encounter Details Date Type Department Care Team (Latest Contact Info) Description 02/09/2021 Travel Social History Tobacco Use Types Packs/Day [...] have Coronavirus / COVID-19? No / Unsure 02/09/2021 7:59 AM CDT documented as of this encounter Plan of Treatment Not on file documented as of this encounter Visit Diagnoses Not on filedocumented in this encounter Care Teams Director Of Volunteer Services Relationship Specialty [place] [address] [place] [address] PCP - General PHYSICIAN SHELLFISH GROWER 02/10/20 01/04/22 documented as of this encounter
--- OUTSIDE RECORDS SUMMARY | 2024-10-07 02:49 | XMS_ITS | Encounter Summary ---
Author Organization [facility] Address [address] [place] [address]. [place], [place] [address] [place] [address] Care Team Providers Care Pants Maker Name Role Phone Miladis Sosa Primary Care Provider + [phone] Encounter Details Date Type Department Care Team (Latest Contact Info) Description 04/27/2020 Travel Social History Tobacco Use Types Packs/Day [...] or suspected to have Coronavirus / COVID-19? Yes 04/27/2020 11:07 AM CDT documented as of this encounter Plan of Treatment Not on file documented as of this encounter Visit Diagnoses Not on filedocumented in this encounter Care Teams Pants Maker Relationship Specialty [place] [address] [place] [address] PCP - General PHYSICIAN MIXER CRANE OPERATOR 02/10/20 01/04/22 documented as of this encounter
--- OUTSIDE RECORDS SUMMARY | 2024-10-07 02:49 | XMS_ITS | Encounter Summary ---
Author Organization [facility] Address [address] [place] [address]. [place] [address] Care Team Providers Care Tearoom Hostess Name Role Phone Unavailable Primary Care Provider Unavailabl e Encounter Details Date Type Department Care Team (Latest Contact Info) Description 11/22/2019 Travel Social History Tobacco Use Types Packs/Day [...]
--- OUTSIDE RECORDS SUMMARY | 2024-10-07 02:49 | XMS_ITS | Encounter Summary ---
Author Organization [facility] Address [address] [place] [address]. [place], [place] [address] [place] [address] Care Team Providers Care Natural Resources Extension Educator Name Role Phone Miladis Sosa Primary Care Provider [phone] Reason for Visit * Reason Comments Weight Check doing well overall Encounter Details Date Type Department Care Team (Late st Contact Info) Description 04/13/2020 9:20 AM CDT Office Visit [facility] Family & Internal Medicine [facility] [address] [place] [address] [place] [address] [place], [place] [phone] Weight Check (doing well overall) Social History Tobacco Use Types Packs/Day Years [...] have Coronavirus / COVID-19? No / Unsure 04/13/2020 9:02 AM CDT documented as of this encounter Last Filed Vital Signs Vital Sign Reading Time Taken Comments Blood Pressure 132/68 04/13/2020 9:09 AM CDT Pulse 64 04/13/2020 9:09 AM CDT Temperature 36.8 ??C (98.3 ??F) 04/13/2020 9:09 AM CD T Respiratory Rate 18 04/13/2020 9:09 AM CDT Oxygen Saturation 99% 04/13/2020 9:09 AM CDT Inhaled Oxygen Concentration - - Weight 122.5 kg (270 lb) 04/13/2020 9:09 AM CDT Height 167.6 cm (5' 6 ) 04/13/2020 9:09 AM CDT Body Mass Index 43.58 04/13/2020 9:09 AM CDT documented in this encounter Progress Notes * YANELIS Cotton - 04/13/2020 9:20 AM CDT Images from the original note were not included. _ Reason for Visit: Weight Check (doing well overall) History of Present Illness: [facility] Leti Audelia Soto is a 29-year-old female here for discussion of her depression and weight loss. She has been on the Wellbutrin now for couple months and hasnoticed some weight reduction she is feeling better mentally she is try to get off of her Prozac. Still he demonstrated notices issues when standing for period. And she decided to stay on low-dose Prozac for that irritability because seems to help that. To me she is given see if that makes a difference the next cycle. But she has much more energy she is more optimistic and she has more appetite control with being on the Wellbutrin so she would like to continue long-term. She denies any thoughts of harming herself or baby or any body else ROS: Review of Systems Feeling well. Denies [...] Outpatient Medications Marked as Taking for the 04/13/20 encounter (Office Visit) with YANELIS Cotton Medication Sig Dispense Refill ??? buPROPion XL (WELLBUTRIN XL) 150 MG 24 hr tablet Take 3 tablets (450 mg total) by mouth daily. 270 tablet 2 Allergies Allergen Reactions ??? Tramadol Other (see [...] content normal. No flowsheet data found. Vitals: 04/13/20 0909 Patient Position: Sitting BP Location: Right arm Cuff size: Adult Large BP: 132/68 Pulse: 64 Body mass index is 43.58 kg/m??. Diagnoses/Impression: 1. BMI 40.0-44.9, adult ([facility]) 2. Reactive depression buPROPion XL (WELLBUTRIN XL) 150 MG 24 hr tablet Orders Placed This Encounter ??? buPROPion XL (WELLBUTRIN XL) 150 MG 24 hr tablet Recommendations and Plan: She will continue with her Wellbutrin she will continue with diet and exercise Patient should follow annual wellness exams recommended for age and sex of patient. Items to consider but not limited included yearly annual fasting labs, colonscopy or cologuard when indicated. PSA and prostate for males. Mammogram and female exam for females, Miladis Sosa PA-C evaluated and Dr Jordan López reviewed and agrees with plan. Cosigned by Jordan López MD at 04/13/2020 10:44 AM CDT documented in this encounter Plan of Treatment Not on file documented as of this encounter Visit Diagnoses Diagnosis BMI 40.0-44.9, adult ([facility])- Primary Body Mass Index 40.0-44.9, adult Reactive depression Dysthymic disorder documented in this encounter Care Teams Natural Resources Extension Educator Relationship Specialty [place] [address] [place] [address] PCP - General PHYSICIAN SUPERVISOR LEAF SPRING FABRICATION 02/10/20 01/04/22 documented as of this encounter
--- OUTSIDE RECORDS SUMMARY | 2024-10-07 02:49 | XMS_ITS | Encounter Summary ---
Author Organization [facility] Address [address] [place] [address]. [place], [place] [address] [place] [address] Care Team Providers Care Finishing Powder Press Operator Name Role Phone Miladis Sosa Primary Care Provider + [phone] Encounter Details Date Type Department Care Team (Late st Contact Info) Description 06/17/2021 1:05 PM CDT - 06/17/2021 11:59 PM CDT Hospital Encounter [facility] [address] [place] [address] Lara Hunter, BUCK [address] [phone] Discharge Disposition: Home or Self Care (Routine [...] this encounter Medications at Time of Discharge buPROPion XL 150 MG 24 hr tabletIndications :Reactive depression TAKE 3 TABLETS(450 MG) BY MOUTH DAILY 270 tablet 1 02/09/2021 09/07/2021 FLUoxetine 40 MG capsuleIndication s:Reactive depression Take 1 capsule (40 mg total) by mouth daily. 90 capsule 1 02/09/2021 11/22/2021 documented as of this encounter Progress Notes * BUCK Diez - 06/17/2021 1:05 PM CDT Please call and let Leti know that her strep culture preliminary as shown no growth. We will call her once final if growth is present. documented in this encounter Plan of Treatment Not on file documented as of this encounter Procedures Procedure Name Priority Date/Time Associated Diagnosis Comments CULTURE STREP A Routine 06/17/2021 10:33 AM CDT Sore throat documented in this encounter Results * CULTURE STREP A (06/17/2021 10:33 AM CDT) SPEC DESCRIPTION THROAT 06/17/2021 1:05 PM CDT [facility] SPECIAL REQUESTS NO SPECIAL REQUEST 06/17/2021 1:05 PM CDT [facility] CULTURE RESULT NO STREPTOCOCCUS PYOGENES (GROUP A) ISOLATED 06/19/2021 8:29 AM CDT [facility] THROAT SWAB / Unknown 06/17/2021 10:33 AM CDT 06/17/2021 1:23 PM CDT us Lraa JANE MICROBIOLOGY - GENERAL ORD ERABLES Final Result [facility] [address] [place] [address], [facility] [address] [place] [address], documented in this encounter Visit Diagnoses Diagnosis Sore throat Acute pharyngitis documented in this encounter Additional Health Concerns Infection Onset Date Last Indicated Resolved Time COVID-19 Rule Out 06/17/2021 06/17/2021 06/18/2021 11:00 PM CDT Assessment Noted Time PHQ-9 Depression Total Score: 1 06/17/20 21 8:51 AM CDT documented as of this encounter Care Teams Finishing Powder Press Operator Relationship Specialty [place] [address] [place] [address] PCP - General PHYSICIAN TRAVELING REPAIR ACCOUNTANT 02/10/20 01/04/22 documented as of this encounter
--- OUTSIDE RECORDS SUMMARY | 2024-10-07 02:49 | XMS_ITS | Encounter Summary ---
Author Organization [facility] Address [address] [place] [address]. [address] [address] Care Team Providers Care Inspector Plating Name Role Phone Miladis Sosa Primary Care Provider + [phone] Reason for Visit * Reason Comments Vomiting woke up sat,- vomite d for 13 hours Cough started monday along with headache and upset stomach Encounter Details Date Type Department Care Team (Late st Contact Info) Description 06/17/2021 4:20 PM CDT Telemedicine [facility] [id number] [place] [phone] Lara Hunter, BUCK [address] [place] [phone] Vomiting (woke up sat,- vomited for 13 hours ); Cough (started monday along with headache and upset stomach ) Social History Tobacco Use Types Packs/Day [...] as of this encounter Progress Notes * Lara Hunter, SEMICONDUCTOR TESTING GROUP LEADER - 06/17/2021 4:20 PM CDT Reason for Visit: Vomiting (woke up sat,- vomited for 13 hours ) and Cough (started monday along with headache and upset stomach ) History of Present Illness: Leti Soto is a 30-year-old female who presents via video visit with complaints ofcough, nausea, headache and vomiting. Leti reports she started with vomiting five six days ago x 1 day and that has since resolved. She reports four days ago she started with cough, congestion, rhinorrhea, fatigue, post nasal drainage and headache. She additionally reports sore throat that started three days ago. She notes some body aches and dizziness with standing. She notes her appetite isbetter today and she has been tolerating oral fluids. She denies fever, chills, SOB, wheezing or diarrhea. She has no additional concerns today. She is vaccinated for covid 19. I introduced and identified myself, received verbal consent?? from the patient to proceed with thisvideo visit and made the patient aware that the same confidentiality and manager business information practices apply. The patient joined the video visit from Home. I completed the virtual visit from Office.The following clinical staff helped with this visit MA: Zakiya Eng. Total Time Spent in Minutes: 8 ROS: Review of Systems Constitutional: Positive for fatigue. Negative for chills and fever. HENT: Positive for congestion, postnasal drip, rhinorrhea and sore throat. Negative for trouble swallowing and voice change. Respiratory: Positive for cough. Negative for sputum production, shortness of breath and wheezing. Gastrointestinal: Positive for nausea and vomiting (now resolved. ). Negative for diarrhea. Musculoskeletal: Positive for myalgias. Neurological: Positive for dizziness and headaches. Medications: Current Outpatient Medications: ??? buPROPion XL 150 MG 24 hr tablet, TAKE 3 TABLETS(450 MG) BY MOUTH DAILY, Disp: 270 tablet, Rfl:1 ??? FLUoxetine 40 MG capsule, Take 1 capsule (40 mg total) by mouth daily., Disp: 90 capsule, Rfl: 1 Allergies Allergen Reactions ??? Tramadol Other (see [...] Smoker ??? Smokeless tobacco: Never Used Substance and Sexual Activity ??? Alcohol use: Yes ??? Drug use: Never ??? Sexual activity: Yes control/protection: I.U.D. Other Topics Concern ??? Not on file Social History Narrative ??? Not on file Social Determinants of Health Financial Resource Strain: ??? Difficulty of Paying Living Expenses: Food Insecurity: ??? Worried About Running Out of Food in the Last Year: ??? Ran Out of Food in the Last Year: Transportation Needs: ??? Lack of Transportation (Medical): ??? Lack of Transportation (Non-Medical): Physical Activity: ??? Days of Exercise per Week: ??? Minutes of Exercise per Session: Stress: ??? Feeling of Stress : Social Connections: ??? Frequency of Communication with Friends and Family: ??? Frequency of Social Gatherings with Friends and Family: ??? Attends Worship Services: ??? Active Member of Clubs or Organizations: ??? Attends Club or Organization Meetings: ??? Marital Status: Intimate Partner Violence: ??? Fear of Current or Ex-Partner: ??? Emotionally Abused: ??? Physically Abused: ??? Sexually Abused: E-Cigarettes Questions Responses E-Cigarette Use Never User Family History Problem Relation Name Age of [...] ??? PGM ??? PGF Alive Physical Exam Vitals and nursing note reviewed. Constitutional: General: She is awake. She is not in acute distress. Appearance: Normal appearance. She is well-developed and well-groomed. She is not ill-appearing, toxic-appearing or diaphoretic. Comments: Vitals and assessment are both limited due to video visit. HENT: Head: Normocephalic and atraumatic. Right Ear: Hearing and external ear normal. Left Ear: Hearing and external ear normal. Eyes: General: Lids are normal. Extraocular Movements: Extraocular movements intact. Conjunctiva/sclera: Conjunctivae normal. Pulmonary: Effort: Pulmonary effort is normal. Comments: Leti was speaking clearly and in complete sentences without any notes SOB or cough. Neurological: Mental Status: She is alert and oriented to person, place, and time. Psychiatric: Attention and Perception: Attention and perception normal. Mood and Affect: Mood and affect normal. Speech: Speech normal. Behavior: Behavior normal. Behavior is cooperative. Thought Content: Thought content normal. Cognition and Memory: Cognition and memory normal. Judgment: Judgment normal. There were no vitals filed for this visit. Diagnoses/Impression: 1. Viral URI CORONAVIRUS (COVID 19) 2. Sore throat RAPID STREP A CULTURE STREP A 3. Suspected COVID-19 virus infection CORONAVIRUS (COVID 19) Recommendations and Plan: 1. Viral URI Recommended to increase fluid intake, rest, use of cool mist humidification, steam from a hot shower, normal saline nasal spray, gargle with warm salt water, steroid nasal spray. Encouraged hand and respiratory hygiene with return demonstration of covering coughs. May use Tylenol and/or ibuprofen as needed per product recommendation. Recommend to monitor household contacts for similar symptoms and transmission of virus discussed. - CORONAVIRUS (COVID 19); Future - CORONAVIRUS (COVID 19) 2. Sore throat - RAPID STREP A - CULTURE STREP A; Future 3. Suspected COVID-19 virus infection Patient with URI symptoms and concern for COVID-19. Recommended Tylenol(acetaminophen) as main fever color paste mixing supervisor and comfort per WHO recommendations. Discussed symptom care of increasing plain water intake, rest, and good handwashing. Patient advised to call PCP if symptoms do not improve, new fever after 10 days or symptoms longer than 14 days. ER precautions given in detail and patient agrees to follow-up if symptoms worsen. Advised to call ahead if ER treatment is needed. Discussed current self-quarantine recommendations in detail for the patient and current CDC and IDPH guidelines. - CORONAVIRUS (COVID 19); Future - CORONAVIRUS (COVID 19) Return to clinic with new, persistent, or worsening symptoms. Leti Soto is in agreement to and verbalized understanding of treatment plan with no further questions at this time. Orders Placed This Encounter ??? RAPID STREP A ??? CULTURE STREP A ??? CORONAVIRUS (COVID 19) Reviewed and updated this visit by provider: BUCK DIEZ Referring Provider: No ref. provider found PCP: YANELIS ARNOLD Cosigned by Jordan López MD at 06/17/2021 10:54 AM CDT * BUCK Diez - 06/17/2021 4:20 PM CDT Please call and let Leti know that her strep was negative in the office and we will send for culture. * BUCK Diez - 06/17/2021 4:20 PM CDT Please call Leti and let her know that her covid PCR has returned NOT DETECTED. She can return to work pending no new symptoms and no fever for 24 hours. Please provide note to return. documented in this encounter Plan of Treatment Not on file documented as of this encounter Procedures Procedure Name Priority Date/Time Associated Diagnosis Comments CORONAVIRUS (COVID 19) Routine 06/17/2021 10:33 AM CDT Viral URI Suspected COVID-19 virus infection RAPID STREP A Routine 06/17/2021 Sore throat documented in this encounter Results * CORONAVIRUS (COVID 19) (06/17/2021 10:33 AM CDT) CORONAVIRUS SARS COV 2 PCR (RESP) NOT DETECTED NOT DETECTED [facility] Comment: A Not Detected result means that SARS-CoV-2 RNA was not present in the specimen above the limit of detection. ?? A Not Detected result does not rule out the possibility of COVID-19 and should not be used as the sole basis for treatment or patient management decisions. If COVID-19 is still suspected, based on exposure history together with other clinical findings, re-testing should be considered in the context of clinical observations and epidemiological data for patient management decisions. ?? Test Method: Nucleic Acid Amplification Test including reverse shore hand dredge or barge polymerase chain reaction (RT-PCR) and shore hand dredge or barge mediated amplification (TMA). The test method meets the [place] Centers for Disease Control and prevention (CDC) pre departure and arrival requirement for viral test for COVID-19 dated October 22, 2020. Testing requirements for traveling may change with time. The patient is responsible for determining the test requirements for each nation while they are traveling. This test has been authorized by the FDA under an Emergency Use Authorization (EUA) for use by authorized laboratories. ?? Please review the Fact Sheets and FDA authorized labeling available for health care providers and patients using the following websites: https://www.[facility]ian[facility].com.com/home/Covid-19/HCP/NAAT/fact-sheet2 https://www.[facility]ian[employer].com.com/home/Covid-19/Patients/NAAT/ fact-sheet2 ?? Due to the current public health emergency, [facility] is accepting samples from appropriate clinical sources collected using wide variety of swabs and transport media for COVID-19. Not detected test results derived from specimens received in non- commercially manufactured viral collection kits or those not yet authorized by FDA for COVID-19 testing should be cautiously evaluated and take extra precautions such as additional clinical monitoring, including collection of an additional specimen. ? Additional information about COVID-19 can be found at the [facility] website: www.[facility].Tamarac/Covid19. NASAL STRUCTURE / Unknown 06/17/2021 10:33 AM CDT 06/18/2021 8:13 AM CDT Lara [facility] MICRO[facility] - GENERAL ORD ERABLES Final Result [facility] LEX [facility] [id number] [address] [id number] * CULTURE STREP A (06/17/2021 10:33 AM CDT) SPEC DESCRIPTION THROAT 06/17/2021 1:[address] [facility] SPECIAL REQUESTS NO SPECIAL REQUEST 06/17/2021 1:[address] [facility] CULTURE RESULT NO STREPTOCOCCUS PYOGENES (GROUP A) ISOLATED 06/19/2021 8:29 AM CDT [facility] THROAT SWAB / Unknown 06/17/2021 10:33 AM CDT 06/17/2021 1:23 PM CDT Lara [facility] MICROBIOLOGY - GENERAL ORD ERABLES Final Result Performing Organization Address City/[facility]/ZIP Co de Phone Number [facility] [address] [place] [address], [place] [phone] [facility] [address] [place] [address], [place] [phone] * RAPID STREP A (06/17/2021) RAPID STREP TEST NEGATIVE NEGATIVE [id number] BIA RAMIREZ Internal Control: VALID VALID [id number] [address] [facility] ANTERIOR PORTION OF NECK / Unknown 06/17/2021 Lara [facility] MICROBIOLOG[facility] - GENERAL ORD ERABLES Final Result [id number] [facility] [address] [place] [address], documented in this encounter Visit Diagnoses Diagnosis Viral URI- Primary Acute upper respiratory infections of unspecified site Sore throat Acute pharyngitis Suspected COVID-19 virus infection documented in this encounter Additional Health Concerns Infection Onset Date Last Indicated Resolved Time COVID-19 Rule Out 06/17/2021 06/17/2021 06/18/2021 11:00 PM CDT Assessment Noted Time PHQ-9 Depression Total Score: 1 06/17/20 8:51 AM CDT documented as of this encounter Care Teams Inspector Plating Relationship Specialty [place] [address] [place] [address] PCP - General PHYSICIAN TRANSPLANTER ORCHID 02/10/20 01/04/22 documented as of this encounter
--- OUTSIDE RECORDS SUMMARY | 2024-10-07 02:49 | XMS_ITS | Encounter Summary ---
Author Organization [facility] Address [address] [place] [address]. [place], [place] [address] [place] [address] Care Team Providers Care Engineer Assistant Name Role Phone Unavailable Primary Care Provider Unavailabl e Encounter Details Date Type Department Care Team (Late st Contact Info) Description 09/09/2015 Abstract Health system [place] [address] Moses Barney, [address] [facility] [address] [place] [phone] Social History Tobacco Use Types Packs/Day Years [...] Procedure Name Priority Date/Time Associated Diagnosis Comments HETEROPHILE ANTIBODIES,SCREEN Routine 09/09/2015 8:20 AM SAWMILLING OPERATOR CBC W/DIFF AUTOMATED Routine 09/09/2015 8:20 AM SAWMILLING OPERATOR CULTURE STREP A Routine 09/09/2015 8:05 AM SAWMILLING OPERATOR documented in this encounter Results * HETEROPHILE ANTIBODIES,SCREEN (09/09/2015 8:20 AM SAWMILLING OPERATOR) Pathologist [facility] MONO TEST NEGATIVE NEGATIVE 09/09/2015 8:41 PM SAWMILLING OPERATOR [facility] 09/09/2015 8:20 AM SAWMILLING OPERATOR 09/09/2015 8:15 PM SAWMILLING OPERATOR us Generic Conversion Md [facility] Final R esult [facility] [address] [place] [address], * (ABNORMAL) CBC W/DIFF AUTOMATED (09/09/2015 8:20 AM SAWMILLING OPERATOR) [facility] WBC 9.1 4.8 - 10.8 X10'3/uL 09/09/2015 8:40 PM [facility] RBC 3.97(L) 4.20 - 5.40 X10'6/uL 09/09/2015 8:40 PM [facility] HGB 12.1 12.0 - 16.0 g/dL 09/09/2015 8:40 PM [facility] HCT 37.2(L) 38.0 - 48.0 % 09/09/2015 8:40 PM [facility] MCV 93.7 81.0 - 99.0 fL 09/09/2015 8:40 PM [facility] MCH 30.5 27.0 - 31.0 pg 09/09/2015 8:40 PM [facility] MCHC 32.5 32.0 - 36.0 g/dL 09/09/2015 8:40 PM [facility] RDW 12.7 11.5 - 14.5 % 09/09/2015 8:40 PM [facility] PLT 208 130 - 400 X10'3/uL 09/09/2015 8:40 PM [facility] MPV 11.6 9.3 - 12.2 fL 09/09/2015 8:40 PM [facility] DIFFERENTIAL TYPE AUTOMATED 09/09/2015 8:40 PM [facility] NEUTROPHILS % 80.4(H) 43.0 - 65.0 % 09/09/2015 8:40 PM [facility] LYMPHOCYTES % 10.2(L) 20.0 - 46.0 % 09/09/2015 8:40 PM [facility] MONOCYTES % 8.7 5.0 - 12.0 % 09/09/2015 8:40 PM [facility] EOSINOPHILS 0.1(L) 1.0 - 3.0 % 09/09/2015 8:40 PM [facility] BASOPHILS 0.3 0.0 - 1.0 % 09/09/2015 8:40 PM [facility] IMMATURE GRANS % 0.3 0.0 - 1.0 % 09/09/2015 8:40 PM [facility] 09/09/2015 8:20 AM SAWMILLING OPERATOR 09/09/2015 8:15 PM SAWMILLING OPERATOR us Generic Conversion Md [facility] Final R esult [facility] [address] [place] [address], * CULTURE STREP A (09/09/2015 8:05 AM SAWMILLING OPERATOR) SPEC DESCRIPTION THROAT 09/09/2015 7:58 PM SAWMILLING OPERATOR [facility] SPECIAL REQUESTS NO SPECIAL REQUEST 09/09/2015 7:58 PM [facility] CULTURE RESULT NO STREPTOCOCCUS PYOGENES (GROUP A) ISOLATED 09/12/2015 11:03 AM [facility] THROAT SWAB / Unknown 09/09/2015 8:05 AM SAWMILLING OPERATOR 09/09/2015 8:16 PM SAWMILLING OPERATOR us Generic Conversion Md [facility]CRO[facility] - GENERAL ORDERABLES Final Result Performing Organization Address City/State/[facility] Co de Phone Number [facility] [address] [place] [address], documented in this encounter Visit Diagnoses Diagnosis Acute pharyngitis documented in this encounter
--- OUTSIDE RECORDS SUMMARY | 2024-10-07 02:49 | XMS_ITS | Encounter Summary ---
Author Organization [facility] Address [address] [place] [address]. [place] [id number] [place] [address] Care Team Providers Care Resource Protection Specialist Name Role Phone Miladis Sosa Primary Care Provider + [phone] Encounter Details Date Type Department Care Team (Latest Contact Info) Description 04/13/2020 Travel Social History Tobacco Use Types Packs/Day [...] on filedocumented in this encounter Care Teams Resource Protection Specialist Relationship Specialty [place] [address] [place] [address] PCP - General PHYSICIAN BODY MECHANIC APPRENTICE 02/10/20 01/04/22 documented as of this encounter
--- OUTSIDE RECORDS SUMMARY | 2024-10-07 02:49 | XMS_ITS | Encounter Summary ---
Author Organization [facility] Address [address] [place] [address]. [place], [place] [address] [place] [address] Care Team Providers Care Landing Worker Name Role Phone Jordan Ernst DO Primary Care Provider [phone] Encounter Details Date Type Department Care Team (Latest Contact Info) Description 06/16/2015 Abstract [facility] Social History Tobacco Use [...] on filedocumented in this encounter Care Teams Landing Worker Relationship Specialty Start Date End Date Jordan Ernst DO [address] [place] [address] PCP - General 01/02/15 09/08/15 documented as of this encounter
--- OUTSIDE RECORDS SUMMARY | 2024-10-07 02:49 | XMS_ITS | Encounter Summary ---
Author Organization [facility] Address [address] [place] [address]. [place], [place] [address] [place] [address] Care Team Providers Care Product Development Coordinator Name Role Phone Miladis Sosa Primary Care Provider + [phone] Encounter Details Date Type Department Care Team (Latest Contact Info) Description 02/10/2020 Travel Social History Tobacco Use Types Packs/Day [...] on filedocumented in this encounter Care Teams Product Development Coordinator Relationship Specialty [place] [address] [place] [address] PCP - General PHYSICIAN SURVEYOR CHAIN HELPER 02/10/20 01/04/22 documented as of this encounter
--- OUTSIDE RECORDS SUMMARY | 2024-10-07 02:49 | XMS_ITS | Encounter Summary ---
Author Organization [facility] Address [address] [place] [address]. [place], [place] [id number] [place] [address] Care Team Providers Care Cafeteria Assistant Name Role Phone Unavailable Primary Care Provider Unavailabl e Encounter Details Date Type Department Care Team (Late st Contact Info) Description 09/14/2015 Abstract [facility] Family Medicine - [address] [phone] Moses Barney DO [address] [phone] Social History Tobacco Use Types Packs/Day Years [...] Sign Reading Time Taken Comments Blood Pressure 130/70 09/14/2015 8:27 AM VOCATIONAL REHABILITATION TEACHER Pulse 55 09/14/2015 8:27 AM VOCATIONAL REHABILITATION TEACHER Temperature - - Respiratory Rate - - Oxygen Saturation - - Inhaled Oxygen Concentration - - Weight 139.8 kg (308 lb 4 oz) 09/14/2015 8:27 AM VOCATIONAL REHABILITATION TEACHER Height - - Body Mass Index 49.75 04/04/2014 8:58 AM CDT documented in this encounter Progress Notes * Moses Barney DO - 09/14/2015 8:15 AM CST History of Present Illness HPI Free Text: 24F here for f/u URI last visit Since then, symptoms nearly resolved, has very mild sore throat, otherwise feeling fine denies any SOB, CP, drooling or wheezing 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 Gastrointestinal: Patient denies any nausea, vomiting, diarrhea or constipation Cardiovascular: Patient denies Chest pain, shortness of breath. Physical Exam General: Well-developed, well-nourished, in no acute distress. Eyes: Conjunctiva and lids: no swelling, erythema or discharge, PERRL Oropharynx: normal without erythema, edema, exudate or lesions Neck: Supple without adenopathy, trachea midline Lungs: Clear to auscultation bilaterally without wheezing, rhonchi or crackles. No increase work ofbreathing or signs of respiratory distress Heart: Regular rate and rhythm without murmurs, clicks or bruits. Abdomen: Nondistended, Nontender. No hepatomegaly or splenomegaly noted on examination. Extremities: No clubbing, cyanosis, or edema noted. Pulses 2+. Neuro: grossly intact. Psych: Normal mood, normal affect Active Problems 1. Benign essential hypertension (401.1) (I10) 2. Mitral valve prolapse (424.0) (I34.1) 3. Sore throat (462) (J02.9) 4. Super obese (278.01) (E66.01) Past Medical History 1. History of contact dermatitis (V13.3) (Z87.2) 2. History of No significant past medical history Surgical History 1. History of Cholecystectomy Family History Father 1. Family history of cardiac disorder (V17.49) (Z82.49) 2. Family history of diabetes mellitus (V18.0) (Z83.3) 3. Family history of hypertension (V17.49) (Z82.49) Grandparent 4. Family history of malignant neoplasm (V16.9) (Z80.9) Social History ?? Never a smoker Current Meds 1. Azithromycin 250 MG Oral Tablet; TAKE 2 TABLETS ON DAY 1 THEN TAKE 1 TABLET A DAY FOR 4 DAYS; Therapy: 27Wrx8413 to (Last Rx:[id number]) Requested for: [id number] Ordered 2. Azurette 0.15-0.02/0.01 MG (12/02) Oral Tablet; Therapy: (Recorded:[id number]) to Recorded 3. Claritin 10 MG Oral Tablet; TAKE 1 TABLET DAILY NEEDED; Therapy: 09Jul2015 to (Evaluate:08Aug2015) Requested for: 09Jul2015; Last Rx:[id number] Ordered 4. Loratadine 10 MG Oral Tablet; TAKE 1 TABLET BY MOUTH EVERY DAY NEEDED; Therapy: 27Jul2015 to (Evaluate:25Oct2015) Requested for: 27Jul2015; Last Rx:27Jul2015 Ordered 5. Metoprolol Succinate ER 50 MG Oral Tablet Extended Release 24 Hour; TAKE 1 TABLET BY MOUTH EVERY MORNING; Therapy: 05Sld3765 to (Evaluate:61Hwx7676) Requested for: 31Nab3601; Last Rx:[id number] Ordered 6. PredniSONE 20 MG Oral Tablet; TAKE 1 TABLET TWICE DAILY; Therapy: 05Ttc1446 to (Evaluate:76Ztl3815) Requested for: 38Uzg6916; Last Rx:[id number] Ordered 7. Triamcinolone Acetonide 0.1 % External Cream; APPLY TO THE AFFECTED AREA TWO TO THREE TIMES DAILY; Therapy: 09Jul2015 to (Evaluate:50Tlm3069) Requested for: 27Jul2015; Last Rx:27Jul2015 Ordered Allergies 1. Penicillins Immunizations DTP/DTaP --- Series1: 02/27/91 (2M); Series2: 05/15/91 (4M); Series3: 08/10/91 (7M); Series4: 05/26/92 (17M); Series5: 06/03/95 (4Y) Hepatitis B --- Series1: 05/30/95 (4Y); Series2: 07/13/95 (4Y); Series3: 04/29/96 (5Y) HIB --- Series1: 02/27/91 (2M); Series2: 05/15/91 (4M); Series3: 08/10/91 (7M); Series4: 05/26/92 (17M) MMR --- Series1: 05/26/92 (17M); Series2: 06/26/96 (5Y) Polio --- Series1: 02/27/91 (2M); Series2: 05/15/91 (4M); Series3: 05/26/92 (17M); Series4: 06/03/95 (4Y) PPD --- Series1: 03/13/09 (18Y); Series2: 03/23/09 (18Y) Td/DT --- Series1: 12/31/04 (14Y) Vitals Recorded: [id number] 08:27AM Heart Rate 55 Respiration 18 Systolic 130 Diastolic 70 Weight 308 lb 4 oz Results/Data *Rapid Strep Test In Office [id number] 09:20AM Moses Barney Test Name Result Flag Reference *Rapid Strep In Office Presumptive Negative *Influenza A + B Test In Office [id number] 09:19AM Moses Barney Test Name Result Flag Reference Flu A Negative Flu B Negative Influenza Negative CBC W Differential [id number] 08:20AM Moses Barney Test Name Result Flag Reference White Blood Cell Count (WBC) 9.1 X10'3/uL 4.8-10.8 Red Blood Cell Count (RBC) 3.97 X10'6/uL L 4.20-5.40 Hemoglobin (HGB) 12.1 g/dL 12.0-16.0 Hematocrit (HCT) 37.2 % L 38.0-48.0 Mean Corpuscular Volume (MCV) 93.7 fL 81.0-99.0 Mean Corpuscular Hgb (MCH) 30.5 pg 27.0-31.0 Mean Corpuscular Hgb Conc (MCH 32.5 g/dL 32.0-36.0 Red Cell Distrib Width (RDW) 12.7 % 11.5-14.5 Platelet Count (PLT) 208 X10'3/uL 130-400 Mean Platelet Volume (MPV) 11.6 fL 9.3-12.2 Differential Type AUTOMATED Neutrophils % (Auto) 80.4 % H 43.0-65.0 Lymphocytes % (Auto) 10.2 % L 20.0-46.0 Monocytes % (Auto) 8.7 % 5.0-12.0 Eosinophils % (Auto) 0.1 % L 1.0-3.0 Basophils % (Auto) 0.3 % 0.0-1.0 IMMATURE GRANULOCYTES 0.3 % 0.0-1.0 [place] Test [id number] 08:20AM Moses Barney Test Name Result Flag Reference [place] Test NEGATIVE NEG Group A Streptococcus Culture [id number] 08:05AM Moses Barney Test Name Result Flag Reference Group A Streptococcus Culture SPECIMEN DESCRIPTION - THROAT SPECIAL REQUESTS - NO SPECIAL REQUEST CULTURE - NO STREPTOCOCCUS PYOGENES (GROUP A) ISOLATED REPORT STATUS - FINAL 09/12/2015 Assessment 1. Examination, physical, employee (V70.5) (Z02.89) 2. URTI (acute upper respiratory infection) (465.9) (J06.9) Plan PMH: History of contact dermatitis 1. Claritin 10 MG Oral Tablet Rx By: Moses Barney; Dispense: 30 Days ; #:30 Tablet; Refill: 0; For: PMH: History of contact dermatitis; CORTEZ = N; Sent To: [facility] 67856; Last Updated By: Colette Humphrey; 09/14/2015 8:27:41 AM 2. Triamcinolone Acetonide 0.1 % External Cream Rx By: Moses Barney; Dispense: 15 Days ; #:30 GM; Refill: 1; For: PMH: History of contact dermatitis; CORTEZ = N; Sent To: [facility] 90356; Last Updated By: Colette Humphrey; 09/14/2015 8:27:41 AM Sore throat 3. Azithromycin 250 MG Oral Tablet Rx By: Moses Barney; Dispense: 0 Days ; #:6 Tablet; Refill: 0; For: Sore throat; CORTEZ = N; Sent To: [facility] 01793; Last Updated By: Colette Humphrey; 09/14/2015 8:27:41 AM 4. PredniSONE 20 MG Oral Tablet Rx By: Moses Barney; Dispense: 5 Days ; #:10 Tablet; Refill: 0; For: Sore throat; CORTEZ = N; Sent To: [facility] 93087; Last Updated By: Colette Humphrey; 09/14/2015 8:27:41 AM Discussion/Summary pt has PE form for me to fill out She needs TB skin test results, she has this at home will bring to me, once I review, I can sign off on paperwork URI almost resolved doing well f/u prn Signatures Electronically signed by : Moses Barney D.O.; Sep 14 2015 8:35AM VOCATIONAL REHABILITATION TEACHER (Author) documented in this encounter Plan of Treatment Not on file documented as of this encounter Visit Diagnoses Not on filedocumented in this encounter
--- OUTSIDE RECORDS SUMMARY | 2024-10-07 02:49 | XMS_ITS | Encounter Summary ---
Author Organization [facility] Address [address] [place] [address]. [place], [place] [address] [place] [address] Care Team Providers Care Mainframe Systems Administrator Name Role Phone Unavailable Primary Care Provider Unavailabl e Encounter Details Date Type Department Care Team (Latest Contact Info) Description 09/10/2015 Abstract [facility] Social History Tobacco Use Types Packs/Day Years Used Date Smoking Tobacco: Never Assessed Comments Unknown Sex and Gender Information Value Date Recorded Sex Assigned at Not on file Legal Sex Female 5:13 PM CDT Gender Identity Female 02/07/2022 6:15 AM CDT Sexual Orientation Bisexual 02/07/2022 6: 15 AM CDT documented as of this encounter Progress Notes * Moses Barney DO - 09/10/2015 9:47 AM CST Message CBC and mono test unremarkable Cont meds as we discussed yesterday Call MD if symptoms not better, if symptoms worsen and we are closed, go to UC or ER thanks Verified Results CBC W Differential [id number] 08:20AM Moses Barney Test Name Result Flag [...] % 0.0-1.0 IMMATURE GRANULOCYTES 0.3 % 0.0-1.0 [facility] Test [id number] 08:20AM Moses Barney Test Name Result Flag Reference Banks Test NEGATIVE NEG documented in this encounter Plan of Treatment Not on file documented as of this encounter Visit Diagnoses Not on filedocumented in this encounter
--- OUTSIDE RECORDS SUMMARY | 2024-10-07 02:49 | XMS_ITS | Encounter Summary ---
Author Organization [facility] Address [address] [place] [address]. [address] [address] Care Team Providers Care Running Instructor Name Role Phone Jordan Ernst DO Primary Care Provider [phone] Jordan Ernst DO Primary Care Provider [phone] Encounter Details Date Type Department Care Team (Latest Contact Info) Description 05/14/2014 Abstract [facility] Social History Tobacco Use Types [...] on filedocumented in this encounter Care Teams Running Instructor Relationship Specialty Start Date End Date Jordan Ernst DO [address] [place] [address] PCP - General 01/02/15 09/08/15 oJrdan Ernst DO [address] [place] [address] PCP - General 12/13/10 01/01/15 documented as of this encounter
--- OUTSIDE RECORDS SUMMARY | 2024-10-07 02:49 | XMS_ITS | Encounter Summary ---
Author Organization [facility] Address [address] [place] [address]. [place] [address] Care Team Providers Care Database Administration Project Manager Name Role Phone Unavailable Primary Care Provider Unavailabl e Encounter Details Date Type Department Care Team (Latest Contact Info) Description 09/23/2015 Abstract [facility] Medical Group [...]
--- OUTSIDE RECORDS SUMMARY | 2024-10-07 02:49 | XMS_ITS | Encounter Summary ---
Author Organization [facility] Address [address] [place] [address]. [place], [place] [address] [place] [address] Care Team Providers Care Bookkeeper Assistant Name Role Phone Unavailable Primary Care Provider Unavailabl e Reason for Visit * Reason Onset Date Comments Medication 11/14/2019 Encounter Details Date Type Department Care Team (Late st Contact Info) Description 11/14/2019 Telephone [facility] Family Medicine [facility] [address] [place] [address] Tosin Pichardo, DO [address] [address] Medication Social History Tobacco Use Types Packs/Day Years Used Date Smoking Tobacco: Never Smokeless Tobacco: Never Alcohol Use Standard Drinks/Week Comments Yes 0 (1 standard drink = 0.6 oz pur e alcohol) PHQ-2 Answer Date Recorded PHQ-2 Score 0 10/23/2019 Comments Unknown Sex and Gender Information Value Date Recorded Sex Assigned at Not on file Legal Sex Female 5:13 PM CDT Gender Identity Female 02/07/2022 6:15 AM CDT Sexual Orientation Bisexual 02/07/2022 6: 15 AM CDT documented as of this encounter Progress Notes * Aura Noriega RN - 11/14/2019 10:16 AM CST Refill sent. Pt has f/u on 11/22/2019 GER AGRICULTURAL * Ofelia So LPN - 11/14/2019 9:41 AM CST Medication and strength: bupropion XL 300mg [facility] Call back #: [phone] Last refill 10/23/2019 Ian Last office visit at this office: Last visit with TOSIN PICHARDO in [facility]ILY [facility]ACT[facility] was on: No match found Future appointment scheduled: Future Appointments Date Time Provider Department Center 11/22/2019 8:40 AM YANELIS Cotton [facility]IC[facility] documented in this encounter Plan of Treatment Not on file documented as of this encounter Visit Diagnoses Diagnosis Other depression documented in this encounter
--- OUTSIDE RECORDS SUMMARY | 2024-10-07 02:49 | XMS_ITS | Encounter Summary ---
Author Organization [facility] Address [address] [place] [address]. [place], [place] [address] [place] [address] Care Team Providers Care Insulation Estimator Name Role Phone Jordan Ernst DO Primary Care Provider [phone] Jordan Ernst DO Primary Care Provider [phone] Encounter Details Date Type Department Care Team (Late st Contact Info) Description 07/11/2014 Abstract [facility] Medical [facility] Family Medicine - [address] [phone] Moses Barney DO [address] [place] [phone] Social History Tobacco Use Types Packs/Day Years [...] Sign Reading Time Taken Comments Blood Pressure 151/86 07/11/2014 8:39 AM CDT Pulse 95 07/11/2014 8:39 AM CDT Temperature - - Respiratory Rate - - Oxygen Saturation - - Inhaled Oxygen Concentration - - Weight 158.8 kg (350 lb) 07/11/2014 8:39 AM CDT Height - - Body Mass Index 56.49 04/04/2014 8:58 AM CDT documented in this encounter Progress Notes * Moses Barney, DO - 07/11/2014 8:45 AM CDT History of Present Illness HM, Adult Female: The patient is being seen for a health maintenance evaluation. The last health maintenance visit was 2 year(s) ago. General Health: Immunizations status: up to date. Lifestyle:. She consumes a diverse and healthy diet. She has weight concerns. She does not use tobacco. She denies drug use. On diet now, tracks caloric intake, aiming for 1700 charity per day, diet is healthy vegatables, exercises daily now, has lost 23 lbs since last visit, has lost 135 since February. Reproductive health:. She is not sexually active. Uses protection when she is sexually active. Screening: Cancer screening reviewed and current. Metabolic screening reviewed and updated. Risk screening reviewed and current. Additional History:. Has not had blood work in many years. Review of Systems Constitutional: negative. Eyes: negative. ENT: negative. Cardiovascular: negative. Respiratory: negative. Gastrointestinal: negative. Genitourinary: negative. Musculoskeletal: negative. Integumentary negative. Breasts Negative. Neurological Negative and As Noted in HPI. Psychiatric: negative. Endocrine Negative. Hematologic and Lymphatic: negative. Active Problems 1. Mitral valve prolapse (424.0) (I34.1) 2. Super obese (278.01) (E66.01) Past Medical History ?? History of No significant past medical history Surgical History ?? History of Cholecystectomy Family History Father ?? Family history of cardiac disorder (V17.49) (Z82.49) ?? Family history of diabetes mellitus (V18.0) (Z83.3) ?? Family history of hypertension (V17.49) (Z82.49) Grandparent ?? Family history of malignant neoplasm (V16.9) (Z80.9) Social History ?? Never a smoker Current Meds 1. Azurette 0.15-0.02/0.01 MG (12/02) Oral Tablet; Therapy: (Recorded:[id number]) to Recorded Dispense: 0 Days ; #: Sufficient TABS; Refill: 0; CORTEZ = N; Record; Last Updated By: Colette Humphrey; 04/04/2014 8:48:44 AM 2. Metoprolol Succinate ER 25 MG Oral Tablet Extended Release 24 Hour; Therapy: (Recorded:[id number]) to Recorded Dispense: 0 Days ; #: Sufficient TB24; Refill: 0; CORTEZ = N; Record; Last Updated By: Colette Humphrey; 04/04/2014 8:48:44 AM Allergies 1. Penicillins Recorded By: Colette Humphrey; 04/04/2014 8:48:44 AM Immunizations Printed in Appendix #1 below. Vitals Recorded by : Colette Humphrey at 11Jul2014 08:39AM Heart Rate 95 Respiration 18 Systolic 151 Diastolic 86 Weight 350 lb Physical Exam Constitutional General appearance: No acute distress, well appearing and well nourished. Eyes Conjunctiva and lids: No swelling, erythema or discharge. Pupils and irises: Equal, round and reactive to light. Ears, Nose, Mouth, and Throat External inspection of ears and nose: Normal. Oropharynx: Normal with no erythema, edema, exudate or lesions. Pulmonary Respiratory effort: No increased work of breathing or signs of respiratory distress. Auscultation of lungs: Clear to auscultation. Cardiovascular Auscultation of heart: Normal rate and rhythm, normal S1 and S2, without murmurs. Examination of extremities for edema and/or varicosities: Normal. Abdomen Abdomen: Non-tender, no masses. Lymphatic Palpation of lymph nodes in neck: No lymphadenopathy. Musculoskeletal Gait and station: Normal. Digits and nails: Normal without clubbing or cyanosis. Skin Skin and subcutaneous tissue: Normal without rashes or lesions. Psychiatric Mood and affect: Normal. Assessment 1. Encounter for preventive health examination (V70.0) (Z00.00) 2. Super obese (278.01) (E66.01) 3. Benign essential hypertension (401.1) (I10) Plan Health Maintenance ?? From Metoprolol Succinate ER 25 MG Oral Tablet Extended Release 24 Hour To Metoprolol Succinate ER 50 MG Oral Tablet Extended Release 24 Hour TAKE 1 TABLET EVERY MORNING Rx By: Moses Barney; Dispense: 0 Days ; #:60 Tablet Extended Release 24 Hour; Refill: 2; For: Health Maintenance; CORTEZ = N; Send To: [facility] 33847 ?? Compr Metabolic Prof ( CMP ) Status: Hold For - Manual Activation Requested for: 11Jul2014 Perform: [facility] Due: 10Aug2014; Ordered; For: Health Maintenance; Ordered By: Moses Barney ?? Lipid Profile Status: Hold For - Manual Activation Requested for: 11Jul2014 Perform: [facility] Due: 10Aug2014; Ordered; For: Health Maintenance; Ordered By: Moses Barney ?? TSH W Reflex Free T4 Status: Hold For - Manual Activation Requested for: 11Jul2014 Perform: [facility] Due: 10Aug2014; Ordered; For: Health Maintenance; Ordered By: Moses Barney Discussion/Summary Impression: health maintenance visit. Currently, she eats a healthy diet and has an adequate exercise regimen. Cervical cancer screening: the risks and benefits of cervical cancer screening were discussed, the patient declines cervical cancer screening and Has INVISIBLE BRACES ORTHODONTIST. Breast cancer screening: breast cancer screening is not indicated. Colorectal cancer screening: colorectal cancer screening is not indicated. Screening lab work includes glucose, lipid profile and thyroid function testing. The immunizations are up to date. Advice and education were given regarding nutrition, aerobic exercise, weight loss, reproductive health, contraception, cardiovascular risk reduction, sunscreen use and self skin examination. Osteoporosis screening: bone mineral density testing is not indicated. HTN - increase b-jostin to 50mg 3 mos re-eval congratulated on losing wt Signatures Electronically signed by : Moses Barney D.O.; Jul 11 2014 8:59AM SALES PERFORMANCE ANALYST (Author) Appendix #1 Patient: Leti Soto; : 1990; 1 2 3 4 5 DTP/DTaP 02/27/91 (2M) 05/15/91 (4M) 08/10/91 (7M) 05/26/92 (17M) 06/03/95 (4Y) Hepatitis B 05/30/95 (4Y) 07/13/95 (4Y) 04/29/96 (5Y) HIB 02/27/91 (2M) 05/15/91 (4M) 08/10/91 (7M) 05/26/92 (17M) MMR 05/26/92 (17M) 06/26/96 (5Y) Polio 02/27/91 (2M) 05/15/91 (4M) 05/26/92 (17M) 06/03/95 (4Y) PPD 03/13/09 (18Y) 03/23/09 (18Y) Td/DT 12/31/04 (14Y) documented in this encounter Plan of Treatment Not on file documented as of this encounter Procedures Procedure Name Priority Date/Time Associated Diagnosis Comments TSH W/REFLEX Routine 01/02/2015 8:23 AM CDT COMPREHENSIVE METABOLIC PANEL Routine 01/02/2015 8:23 AM CDT LIPID PANEL Routine 01/02/2015 8:23 AM CDT documented in this encounter Results * LIPID PANEL (01/02/2015 8:23 AM CDT) CHOLESTEROL 169 <200 mg/dL [facility] TO EPIC CONVERSION TRIGLYCERIDES 68 <150 mg/dL [facility] CONVERSION HDL 72 >59 mg/dL [facility] CONVERSION LDL (CALCULATED) 83 <100 mg/dL [facility] TO [facility] CONVERSION NON HDL CHOLESTEROL 97 <130 mg/dL [facility] TO [facility] CONVERSION Comment: Result Comment: NOTE: WHEN THE TRIGLYCERIDES ARE >200 mg/dL, NON HDL C IS A SECONDARY TARGET OF THERAPY, WITH A GOAL 30 mg/dL HIGHER THAN THE IDENTIFIED LDL C GOAL. CHOL/HDL RATIO 2.3 0.0 - 4.5 [facility] TO [facility]IC CONVERSION VLDL CHOLESTEROL (LMP) 14 5 - 55 mg/dL [facility] TO EPIC CONVERSION LIPID INTERPRETATION NIH CONCENSUS REPORT RECOMMENDATI ONS: ?ADULT ?CHILD ??LOW RISK: ?CHOLESTERO L ? <200 ? <170 ?TRIGLYCERI DE ?<150 ?--- ?HDL ? >=60 ?--- ?LDL ? <100 ? <110 ?BORDERLINE : ?CHOLESTERO L ? 200-239 ?? 170-199 ?TRIGLYCERI DE ?150-199 ? --- ?HDL ?40-59 ?--- ?LDL ? 100-159 ?? 110-129 ?HIGH RISK: ?CHOLESTERO L ? >=240 ?>=200 ?TRIGLYCERI DE ?>=200 ? --- ?HDL ?<40 ?--- ?LDL ? >=160 ?>=130 [facility] TO EPIC CONVERSION 01/02/2015 8:23 AM CDT 01/02/2015 8:23 AM CDT Narrative [facility] TO [facility] CONVERSION - 01/02/2015 10:55 PM CDT Result Communication: Mail Results to Patient Moses Barney DO LABORATORY Final Result [facility] TO EPIC CONVERSION * TSH W/REFLEX (SNS) (01/02/2015 8:23 AM CDT) TSH 1.57 0.27 - 4.20 mIU/mL [facility] TO EPIC CONVERSION Comment:Result Comment: FREE T4 NOT INDICATED 01/02/2015 8:23 AM CDT 01/02/2015 8:23 AM CDT Narrative [facility] TO [facility] CONVERSION - 01/02/2015 10:55 PM CDT Result Communication: Mail Results to Patient Moses Barney DO LABORATORY Final Result [facility] TO EPIC CONVERSION * (ABNORMAL) COMPREHENSIVE METABOLIC PANEL (01/02/2015 8:23 AM CDT) [facility] SODIUM S/P/B 140 136 - 145 mmol/L [facility] TO EPIC CONVERSION POTASSIUM S/P/B 4.3 3.5 - 5.1 mmol/L [facility] TO EPIC CONVERSION CHLORIDE S/P/B 104 98 - 107 mmol/L [facility] TO EPIC CONVERSION CO2 26 22 - 29 mmol/L [facility] TO EPIC CONVERSION ANION GAP 14 8 - 20 [facility] T O EPIC CONVERSION BUN 11 8 - 23 mg/dL [facility] TO EPIC CONVERSION CREATININE S/P/B 0.57(L) 0.60 - 1.10 mg/dL [facility] TO EPIC CONVERSION GFR ESTIMATE >60 >60 mL/min/1 .73m'2 [facility] TO EPIC CONVERSION EGFR AFR. AMER. >60 NOTE: eGFR is not calculated for patients <18 years of age. This is an estimated GFR (CKD EPI) and should not be used for calculating drug doses. >60 mL/min/1 .73m'2 [facility] TO EPIC CONVERSION GLUCOSE 91 70 - 99 mg/dL [facility] TO [facility]IC CONVERSION CALCIUM S/P/B 9.2 8.6 - 10.2 mg/dL [facility] TO EPIC CONVERSION BILIRUBIN TOTAL S/P/B 0.2 0.2 - 1.2 mg/dL [facility] TO EPIC CONVERSION AST 14 0 - 32 IU/L [facility] TO EPIC CONVERSION ALT 12 0 - 33 IU/L [facility] TO EPIC CONVERSION ALKALINE PHOSPHATASE S/P/B 66 35 - 104 IU/L [facility] TO EPIC CONVERSION TOTAL PROTEIN S/P/B 6.7 6.4 - 8.3 g/dL [facility] TO EPIC CONVERSION ALBUMIN S/P/B 4.1 3.5 - 5.2 g/dL [facility] TO EPIC CONVERSION GLOBULIN 2.6 2.3 - 3.6 g/dL [facility] TO EPIC CONVERSION A/G RATIO 1.6 1.0 - 2.0 [facility] TO EPIC CONVERSION 01/02/2015 8:23 AM CDT 01/02/2015 8:23 AM CDT Narrative [facility] TO EPIC CONVERSION - 01/02/2015 10:55 PM CDT Result Communication: Mail Results to Patient Moses Barney DO LABORATORY Final Result [facility] TO EPIC CONVERSION documented in this encounter Visit Diagnoses Not on filedocumented in this encounter Care Teams Insulation Estimator Relationship Specialty Start Date End Date Jordan Ernst DO [address] [place] [address] PCP - General 01/02/15 09/08/15 Jordan Ernst DO [address] [place] [address] PCP - General 12/13/10 01/01/15 documented as of this encounter
--- OUTSIDE RECORDS SUMMARY | 2024-10-07 02:49 | XMS_ITS | Encounter Summary ---
Author Organization [facility] Address [address] [place] [address]. [place], [place] [address] [place] [address] Care Team Providers Care Extractor Loader And Unloader Name Role Phone ErnstJordan melchor Abraham LOIVER Primary Care Provider [phone] Encounter Details Date Type Department Care Team (Late st Contact Info) Description 07/09/2015 Abstract [facility] Family Medicine - [address] [address] Moses Barney DO [address] [phone] Social History Tobacco Use Types Packs/Day Years [...] Sign Reading Time Taken Comments Blood Pressure 140/72 07/09/2015 3:02 PM CDT Pulse 61 07/09/2015 3:02 PM CDT Temperature - - Respiratory Rate - - Oxygen Saturation - - Inhaled Oxygen Concentration - - Weight 135.2 kg (298 lb) 07/09/2015 3:02 PM CDT Height - - Body Mass Index 48.1 04/04/2014 8:58 AM CDT documented in this encounter Progress Notes * Moses Barney DO - 07/09/2015 3:00 PM CDT History of Present Illness HPI Free Text: 24 F cc; rash x 2 weeks located right wrist, where she wears her watch She has stopepd wearing watch but symptoms still present + itching has tried OTC itch creams no other emds denies fevers, chills, [place] Physical Exam General: Well-developed, well-nourished, in no acute distress. Eyes: Conjunctiva and lids: no swelling, erythema or discharge Lungs: Clear to auscultation bilaterally without wheezing, rhonchi or crackles. No increase work ofbreathing or signs of respiratory distress Heart: Regular rate and rhythm without murmurs, clicks or bruits. Extremities: No clubbing, cyanosis. On left wrist where she would wear watch is maculopapular rash,no discharge or TTP Neuro: grossly intact. Active Problems 1. Benign essential hypertension (401.1) (I10) 2. Mitral valve prolapse (424.0) (I34.1) 3. Super obese (278.01) (E66.01) Past Medical History 1. History of No significant past medical history Surgical History 1. History of Cholecystectomy Family History Father 1. Family history of cardiac disorder (V17.49) (Z82.49) 2. Family history of diabetes mellitus (V18.0) (Z83.3) 3. Family history of hypertension (V17.49) (Z82.49) Grandparent 4. Family history of malignant neoplasm (V16.9) (Z80.9) Social History ?? Never a smoker Immunizations DTP/DTaP --- Series1: 02/27/91 (2M); Series2: [...] 03/23/09 (18Y) Td/DT --- Series1: 12/31/04 (14Y) Current Meds 1. Azurette 0.15-0.02/0.01 MG (12/02) Oral Tablet; Therapy: (Recorded:[id number]) to Recorded Dispense: 0 Days ; #: Sufficient TABS; Refill: 0; CORTEZ = N; Record; Last Updated By: Colette Humphrey; 04/04/2014 8:48:44 AM 2. Metoprolol Succinate ER 50 MG Oral Tablet Extended Release 24 Hour; TAKE 1 TABLET BY MOUTH EVERY MORNING; Therapy: 06Jan2015 to (Evaluate:[id number]) Requested for: 06Jan2015; Last Rx:06Jan2015 Ordered Rx By: Moses Barney; Dispense: 30 Days ; #:120 TAB; Refill: 2; For: Benign essential hypertension; CORTEZ = N; Verified Transmission to [facility]; Last Updated By: Toro Peña; 01/06/2015 2:03:01 PM Allergies 1. Penicillins Recorded By: Colette Humphrey; 04/04/2014 8:48:44 AM Vitals Recorded: 09Jul2015 03:02PM Temperature 97.7 F Heart Rate 61 Respiration 18 Systolic 140 Diastolic 72 Weight 298 lb Assessment 1. Contact dermatitis (692.9) (L25.9) Plan Contact dermatitis 1. Claritin 10 MG Oral Tablet (Loratadine); TAKE 1 TABLET DAILY NEEDED Rx By: Moses Barney; Dispense: 30 Days ; #:30 Tablet; Refill: 0; For: Contact dermatitis; CORTEZ = N; Sent To: [facility] 2. Triamcinolone Acetonide 0.1 % External Cream; APPLY 2-3 TIMES DAILY TO AFFECTED AREA(S) Rx By: Moses Barney; Dispense: 0 Days ; #:1 X 30 GM Tube; Refill: 0; For: Contact dermatitis; CORTEZ = N; Sent To: [facility] [id number] Discussion/Summary Appears to be contact dernatitis will try triamcinolone clariting prn itching RTC if not better despite these interventions Signatures Electronically signed by : Moses Barney D.O.; Jul 09 2015 3:17PM [employer] (Author) documented in this encounter Plan of Treatment Not on file documented as of this encounter Visit Diagnoses Not on filedocumented in this encounter Care Teams Extractor Loader And Unloader Relationship Specialty Start Date End Date Jordan Ernst DO [address] [place] [address] PCP - General 01/02/15 09/08/15 documented as of this encounter
--- OUTSIDE RECORDS SUMMARY | 2024-10-07 02:49 | XMS_ITS | Encounter Summary ---
Author Organization [facility] Address [address] [place] [address]. [place], [place] [address] [place] [address] Care Team Providers Care Lens Grinder Name Role Phone Unavailable Primary Care Provider Unavailabl e Encounter Details Date Type Department Care Team (Late st Contact Info) Description 09/09/2015 Abstract [facility] Medical [facility] Family Medicine - [address] [phone] Moses Barney DO [address] [phone] Social History Tobacco Use Types Packs/Day Years [...] Sign Reading Time Taken Comments Blood Pressure 148/77 09/09/2015 7:57 AM ELECTRONIC GAMING DEVICE SUPERVISOR Pulse 106 09/09/2015 7:57 AM ELECTRONIC GAMING DEVICE SUPERVISOR Temperature - - Respiratory Rate - - Oxygen Saturation - - Inhaled Oxygen Concentration - - Weight 136.5 kg (301 lb) 09/09/2015 7:57 AM ELECTRONIC GAMING DEVICE SUPERVISOR Height - - Body Mass Index 48.58 04/04/2014 8:58 AM CDT documented in this encounter Progress Notes * Moses Barney DO - 09/09/2015 8:00 AM CST History of Present Illness HPI Free Text: 24F cc: sore throat x 3 days Started on Monday has taken dayquil and nyquil not getting better ans anterior neck soreness + fevers + pain with swallowing, but able to swallow - N,V,D - CP or SOB or palpitations - ONEAL - cough + sinus pain and congestion no increased drooling Physical Exam General: Well-developed, well-nourished, in no acute distress. Eyes: Conjunctiva and lids: no swelling, erythema or discharge, PERRL ears: left ear with effusion, right TM normal Mild sinus pressure to palpation Oropharynx: + tonsillar exudate Neck: + lori cervical LAD Lungs: Clear to auscultation bilaterally without wheezing, rhonchi or crackles. No increase work ofbreathing or signs of respiratory distress Heart: Regular rate and rhythm without murmurs, clicks or bruits. Abdomen: Nondistended, Nontender. Extremities: No clubbing, cyanosis, or edema noted. Neuro: grossly intact. Neg kernig, neg brudzinski. No nuchal rigidity Psych: Normal mood, normal affect Active Problems 1. Benign essential hypertension (401.1) (I10) 2. Contact dermatitis (692.9) (L25.9) 3. Mitral valve prolapse (424.0) (I34.1) 4. Super obese (278.01) (E66.01) Past Medical [...] Azurette 0.15-0.02/0.01 MG (12/02) Oral Tablet; Therapy: (Recorded:[id number]) to Recorded Dispense: 0 Days ; #: Sufficient TABS; Refill: 0; CORTEZ = N; Record; Last Updated By: Colette Humphrey; 04/04/2014 8:48:44 AM 2. Claritin 10 MG Oral Tablet; TAKE 1 TABLET DAILY NEEDED; Therapy: 09Jul2015 to (Evaluate:08Aug2015) Requested for: 09Jul2015; Last Rx:09Jul2015 Ordered Rx By: Moses Barney; Dispense: 30 Days ; #:30 Tablet; Refill: 0; For: Contact dermatitis; CORTEZ = N; Verified Transmission to [id number]; Last Updated By: Toro Peña; 07/09/2015 3:19:03 PM 3. Loratadine 10 MG Oral Tablet; TAKE 1 TABLET BY MOUTH EVERY DAY NEEDED; Therapy: 27Jul2015 to (Evaluate:25Oct2015) Requested for: 27Jul2015; Last Rx:27Jul2015 Ordered Rx By: Moses Barney; Dispense: 30 Days ; #:30 TAB; Refill: 2; For: Contact dermatitis; CORTEZ = N; Verified Transmission to [facility]; Last Updated By: [facility]; 07/27/20159:50:19 AM 4. Metoprolol Succinate ER 50 MG Oral Tablet Extended Release 24 Hour; TAKE 1 TABLET BY MOUTH EVERY MORNING; Therapy: 06Jan2015 to (Evaluate:[id number]) Requested for: 06Jan2015; Last Rx:06Jan2015 Ordered Rx By: Moses Barney; Dispense: 30 Days ; #:120 TAB; Refill: 2; For: Benign essential hypertension; CORTEZ = N; Verified Transmission to [facility]; Last Updated By: [facility]; 01/06/2015 2:03:01 PM 5. Triamcinolone Acetonide 0.1 % External Cream; APPLY TO THE AFFECTED AREA TWO TO THREE TIMES DAILY; Therapy: 09Jul2015 to (Evaluate:[id number]) Requested for: 27Jul2015; Last Rx:27Jul2015 Ordered Rx By: Moses Barney; Dispense: 15 Days ; #:30 GM; Refill: 1; For: Contact dermatitis; CORTEZ = N; Verified Transmission to [facility]; Last Updated By: [facility]; 07/27/2015 9:49:06 AM Allergies 1. Penicillins Recorded By: Colette Humphrey; 04/04/2014 8:48:44 AM Vitals Recorded: [id number] 07:57AM Temperature 101.4 F Heart Rate 106 Respiration 20 Systolic 148 Diastolic 77 O2 Saturation 100 Weight 301 lb Assessment 1. Sore throat (462) (J02.9) Plan Sore throat 1. Azithromycin 250 MG Oral Tablet; TAKE 2 TABLETS ON DAY 1 THEN TAKE 1 TABLET A DAY FOR 4 DAYS Rx By: Moses Barney; Dispense: 0 Days ; #:6 Tablet; Refill: 0; For: Sore throat; CORTEZ = N; Sent To: [facility] 2. PredniSONE 20 MG Oral Tablet; TAKE 1 TABLET TWICE DAILY Rx By: Moses Barney; Dispense: 5 Days ; #:10 Tablet; Refill: 0; For: Sore throat; CORTEZ = N; Sent To: [facility] 3. CBC W Differential; Status:Hold For - Manual Activation; Requested for:[id number]; Perform:[facility]; Due:09Oct2015;Ordered; For:Sore throat; Ordered By:Moses Barney; 4. [place] Test; Status:Hold For - Manual Activation; Requested for:[id number]; Perform:[facility]; Due:09Oct2015;Ordered; For:Sore throat; Ordered By:Moses Barney; Discussion/Summary Neg flu, neg rapid strep check mono and CBC will treat for bacterial URI steroids to help decrease inflammation of throat if unable to swallow, go to ER f/u 5 days Signatures Electronically signed by : Moses Barney D.O.; Sep 09 2015 8:19AM ELECTRONIC GAMING DEVICE SUPERVISOR (Author) documented in this encounter Plan of Treatment Not on file documented as of this encounter Procedures Procedure Name Priority Date/Time Associated Diagnosis Comments STREP A RAPID Routine 09/09/2015 9:20 AM ELECTRONIC GAMING DEVICE SUPERVISOR INFLUENZA A & B Routine 09/09/2015 9:19 AM ELECTRONIC GAMING DEVICE SUPERVISOR HETEROPHILE ANTIBODIES,SCREEN Routine 09/09/2015 8:20 AM ELECTRONIC GAMING DEVICE SUPERVISOR CBC W/DIFF AUTOMATED Routine 09/09/2015 8:20 AM ELECTRONIC GAMING DEVICE SUPERVISOR CULTURE STREP A Routine 09/09/2015 8:05 AM ELECTRONIC GAMING DEVICE SUPERVISOR documented in this encounter Results * STREP A RAPID (09/09/2015 9:20 AM ELECTRONIC GAMING DEVICE SUPERVISOR) RAPID STREP TEST Presumptive Negative [facility] TO EPIC CONVERSION 09/09/2015 9:20 AM ELECTRONIC GAMING DEVICE SUPERVISOR 09/09/2015 9:20 AM ELECTRONIC GAMING DEVICE SUPERVISOR Narrative [facility] TO EPIC CONVERSION - 09/09/2015 9:20 AM ELECTRONIC GAMING DEVICE SUPERVISOR Result Communication: No patient communication needed at this time us Moses Barney DO MICROBIOLOGY - GENERAL ORDER CARLOS Final Result [facility] TO [facility]IC CONVERSION * INFLUENZA A & B (09/09/2015 9:19 AM ELECTRONIC GAMING DEVICE SUPERVISOR) INFLUENZA A Negative [facility] TO EPIC CONVERSION INFULENZA A AB Negative [facility] OUP TO EPIC CONVERSION INFLUENZA B AB Negative [facility] OUP TO EPIC CONVERSION 09/09/2015 9:19 AM ELECTRONIC GAMING DEVICE SUPERVISOR 09/09/2015 9:19 AM ELECTRONIC GAMING DEVICE SUPERVISOR Narrative [facility] TO EPIC CONVERSION - 09/09/2015 9:19 AM ELECTRONIC GAMING DEVICE SUPERVISOR Result Communication: No patient communication needed at this time Moses Barney DO MICROBIOLOGY - GENERAL ORDER CARLOS Final Result Performing Organization Address City/[facility]/ZIP Co de Phone Number [facility] TO EPIC CONVERSION * HETEROPHILE ANTIBODIES,SCREEN (09/09/2015 8:20 AM ELECTRONIC GAMING DEVICE SUPERVISOR) MONO TEST NEGATIVE NEG [facility] T O EPIC CONVERSION 09/09/2015 8:20 AM ELECTRONIC GAMING DEVICE SUPERVISOR 09/09/2015 8:20 AM ELECTRONIC GAMING DEVICE SUPERVISOR Narrative [facility] TO EPIC CONVERSION - 09/09/2015 8:41 PM ELECTRONIC GAMING DEVICE SUPERVISOR Result Communication: Call patient with results Moses Barney DO LABORATORY Final Result Performing Organization Address [facility] Co de Phone Number [facility] TO EPIC CONVERSION * (ABNORMAL) CBC W/DIFF AUTOMATED (09/09/2015 8:20 AM ELECTRONIC GAMING DEVICE SUPERVISOR) WBC 9.1 4.8 - 10.8 X10'3/uL [facility] TO [facility] CONVERSION RBC 3.97(L) 4.20 - 5.40 X10'6/uL [facility] TO [facility]IC CONVERSION HGB 12.1 12.0 - 16.0 g/dL [facility] TO [facility]IC CONVERSION HCT 37.2(L) 38.0 - 48.0 % [facility] TO [facility]IC CONVERSION MCV 93.7 81.0 - 99.0 fL [facility] TO EPIC CONVERSION MCH 30.5 27.0 - 31.0 pg [facility] TO EPIC CONVERSION MCHC 32.5 32.0 - 36.0 g/dL [facility] TO EPIC CONVERSION RDW 12.7 11.5 - 14.5 % [facility] TO EPIC CONVERSION PLT 208 130 - 400 X10'3/uL [facility] TO [facility]IC CONVERSION GLUCOSE 11.6 9.3 - 12.2 fL [facility] TO EPIC CONVERSION BASOPHILS % 0.3 0.0 - 1.0 % [facility] TO [facility]IC CONVERSION EOSINOPHILS % 0.1(L) 1.0 - 3.0 % [facility] TO [facility]IC CONVERSION NEUTROPHILS % 80.4(H) 43.0 - 65.0 % [facility] TO [facility]IC CONVERSION LYMPHOCYTES % 10.2(L) 20.0 - 46.0 % [facility] TO [facility]IC CONVERSION MONOCYTES % 8.7 5.0 - 12.0 % [facility] TO [facility] CONVERSION IMMATURE GRANS % 0.3 0.0 - 1.0 % [facility] TO [facility]IC CONVERSION DIFFERENTIAL TYPE AUTOMATED [facility] TO [facility]IC CONVERSION 09/09/2015 8:20 AM ELECTRONIC GAMING DEVICE SUPERVISOR 09/09/2015 8:20 AM ELECTRONIC GAMING DEVICE SUPERVISOR Narrative [facility] TO EPIC CONVERSION - 09/09/2015 8:40 PM ELECTRONIC GAMING DEVICE SUPERVISOR Result Communication: Call patient with results Moses Barney DO LABORATORY Final Result Performing Organization Address City/[facility] Co de Phone Number [facility] TO EPIC CONVERSION * CULTURE STREP A (09/09/2015 8:05 AM ELECTRONIC GAMING DEVICE SUPERVISOR) THROAT CULTURE STREP A ONLY SPECIMEN DESCRIPTION ? - THROAT SPECIAL REQUESTS ? - NO SPECIAL REQUEST CULTURE ?- NO STREPTOCOCCUS PYOGENES (GROUP A) ISOLATED REPORT STATUS ?- FINAL 09/12/2015 [facility] TO [facility]IC CONVERSION 09/09/2015 8:05 AM ELECTRONIC GAMING DEVICE SUPERVISOR 09/09/2015 8:05 AM ELECTRONIC GAMING DEVICE SUPERVISOR Narrative [facility] TO EPIC CONVERSION - 09/12/2015 11:03 AM ELECTRONIC GAMING DEVICE SUPERVISOR Result Communication: No patient communication needed at this time Moses Barney DO MICROBIOLOGY - GENERAL ORDER CARLOS Final Result Performing Organization Address City/State/[facility] Co de Phone Number [facility] TO EPIC CONVERSION documented in this encounter Visit Diagnoses Not on filedocumented in this encounter
--- OUTSIDE RECORDS SUMMARY | 2024-10-07 02:49 | XMS_ITS | Encounter Summary ---
Author Organization [facility] Address [address] [place] [address]. [place], [place] [address] [place] [address] Care Team Providers Care Director Market Intelligence Name Role Phone Jordan Ernst DO Primary Care Provider [phone] Jordan Ernst DO Primary Care Provider [phone] Encounter Details Date Type Department Care Team (Late st Contact Info) Description 04/04/2014 Abstract [facility] Medical Group Family Medicine - [address] [phone] Moses Barney DO [address] [place] [phone] Social History Tobacco Use Types Packs/Day Years [...] Sign Reading Time Taken Comments Blood Pressure 140/86 04/04/2014 8:58 AM CDT Pulse 89 04/04/2014 8:58 AM CDT Temperature - - Respiratory Rate - - Oxygen Saturation - - Inhaled Oxygen Concentration - - Weight 169.2 kg (373 lb) 04/04/2014 8:58 AM CDT Height 167.6 cm (5' 6 ) 04/04/2014 8:58 AM CDT Body Mass Index 60.2 04/04/2014 8:58 AM CDT documented in this encounter Progress Notes * Moses Barney, DO - 04/04/2014 8:30 AM CDT History of Present Illness New pt eval About 3 mos ago, she had palpitations, had stress test by cards, was told she had MVP, placed on metoprolol and has been on this for 3 mos. Symptoms have resolved, she sees cards today for f/u. She lost 130 pounds this past year. She did this by eating healthy. She is walking, swimming, usingbike, using home videos. She know she still has a long way to go but is happy with her wt loss so far. She takes OCPs for control Last PCM visit was 3 years Review of systems General: Patient denies any fevers, chills. Gastrointestinal: Patient denies any nausea, vomiting, diarrhea or constipation Genitourinary: Patient denies dysuria, hematuria, urgency or frequency Cardiovascular: Patient denies Chest pain, shortness of breath. Mental Health: Pt denies any anxiety or depression All other ROS negative unless specified above Physical Exam General: Well-developed, well-nourished, in no acute distress. Obese Eyes: Conjunctiva and lids: no swelling, erythema [...] grossly intact. Psych: Normal mood, normal affect Past Medical History 1. History of No [...] Azurette 0.15-0.02/0.01 MG (12/02) Oral Tablet; Therapy: (Recorded:[id number]) to Recorded Dispense: 0 Days ; #: Sufficient TABS; Refill: 0; CORTEZ = N; Record; Last Updated By: Colette Humphrey; 04/04/2014 8:48:44 AM 2. Metoprolol Succinate ER 25 MG Oral Tablet Extended Release 24 Hour; Therapy: (Recorded:[id number]) to Recorded Dispense: 0 Days ; #: Sufficient TB24; Refill: 0; CORTEZ = N; Record; Last Updated By: Colette Humphrey; 04/04/2014 8:48:44 AM Allergies 1. Penicillins Recorded By: Colette Humphrey; 04/04/2014 8:48:44 AM Immunizations DTP/DTaP --- Series1: [birth year]/27/91 (2M); Series2: [...] (18Y) Td/DT --- Series1: 12/31/04 (14Y) Vitals Vital Signs [Data Includes: Current Encounter] Recorded by : Colette Humphrey at [id number] 08:58AM Heart Rate 89 Respiration 18 Systolic 140 Diastolic 86 Height 5 ft 6 in Weight 373 lb BMI Calculated 60.2 BSA Calculated 2.61 Assessment 1. Mitral valve prolapse (424.0) (I34.1) 2. Super obese (278.01) (E66.01) Discussion/Summary Discussion Summary Free Text: MVP - She is on metoprolol for this. Since being on this medication, no longer with any symptoms ofpalpitations. She is a follow up with cardiology today. Superobese - she lost 130 pounds this year, I congratulated her and encourage her to continue with proper diet and lifestyle changes. She exercises often. Made aware of morbidities assoc with obesity. She appears motivated to continue to lose weight I like to see her again in 2-3 months for annual wellness exam Signatures Electronically signed by : Moses Barney D.O.; Apr 04 2014 10:34AM DIAMOND ASSORTER (Author) documented in this encounter Plan of Treatment Not on file documented as of this encounter Visit Diagnoses Not on filedocumented in this encounter Care Teams Director Market Intelligence Relationship Specialty Start Date End Date Jordan Ernst DO [address] [place] [address] PCP - General 01/02/15 09/08/15 Jordan Ernst DO [address] [place] [address] PCP - General 12/13/10 01/01/15 documented as of this encounter
--- OUTSIDE RECORDS SUMMARY | 2024-10-07 02:49 | XMS_ITS | Encounter Summary ---
Author Organization [facility] Address [address] [place] [address]. [address] [address] Care Team Providers Care Web Content Coordinator Name Role Phone Jordan Ernst DO Primary Care Provider [phone] Jordan Ernst DO Primary Care Provider [phone] Encounter Details Date Type Department Care Team (Latest Contact Info) Description 04/08/2014 Abstract [facility] Social History Tobacco Use [...] on filedocumented in this encounter Care Teams Web Content Coordinator Relationship Specialty Start Date End Date Jordan Ernst DO [address] [place] [address] PCP - General 01/02/15 09/08/15 Jordan Ernst DO [address] [place] [address] PCP - General 12/13/10 01/01/15 documented as of this encounter
--- OUTSIDE RECORDS SUMMARY | 2024-10-07 02:49 | XMS_ITS | Encounter Summary ---
Author Organization [facility] Address [address] [place] [address]. [place], [place] [address] [place] [address] Care Team Providers Care Director Digital Catalogue Name Role Phone Jordan Ernst DO Primary Care Provider [phone] Jordan Ernst DO Primary Care Provider [phone] Encounter Details Date Type Department Care Team (Latest Contact Info) Description 12/24/2014 Abstract [facility] Jordan Ernst DO [address] [place] [address] Social History Tobacco Use Types Packs/Day Years [...] filedocumented in this encounter Care Teams Director Digital Catalogue Relationship Specialty Start Date End Date Jordan Ernst DO [address] [place] [address] PCP - General 01/02/15 09/08/15 Jordan Ernst DO [address] [place] [address] PCP - General 12/13/10 01/01/15 documented as of this encounter
--- OUTSIDE RECORDS SUMMARY | 2024-10-07 02:49 | XMS_ITS | Encounter Summary ---
Author Organization [facility] Address [address] [place] [address]. [place] [address] Care Team Providers Care Alarm Field Technician Name Role Phone Unavailable Primary Care Provider Unavailabl e Encounter Details Date Type Department Care Team (Latest Contact Info) Description 05/20/2016 Abstract [facility] Medical [facility] Social History Tobacco Use [...]
--- OUTSIDE RECORDS SUMMARY | 2024-10-07 02:49 | XMS_ITS | Encounter Summary ---
Author Organization [facility] Address [address] [place] [address]. [place], [place] [address] [place] [address] Care Team Providers Care Accounts Payable Technician Name Role Phone Miladis Sosa Primary Care Provider [phone] Reason for Visit * Reason Comments UTI Symptoms frequency, strong od or, burning with urination also, the past2 days Encounter Details Date Type Department Care Team (Late st Contact Info) Description 04/27/2020 11:20 AM CDT Office Visit [facility] [address] [place] [address] Miladis Sosa [place] [id number] [place] [address] UTI Symptoms (frequency, strong odor, burning with urination also, the past2 days) Social History Tobacco Use Types Packs/Day Years [...] Reading Time Taken Comments Blood Pressure 120/82 04/27/2020 11:26 AM CDT Pulse 82 04/27/2020 11:26 AM CDT Temperature 36.4 ??C (97.6 ??F) 04/27/2020 11:26 AM C DT Respiratory Rate 18 04/27/2020 11:26 AM CDT Oxygen Saturation 96% 04/27/2020 11:26 AM CDT Inhaled Oxygen Concentration - - Weight 118.4 kg (261 lb) 04/27/2020 11:26 AM CDT Height 167.6 cm (5' 6 ) 04/27/2020 11:26 AM CDT Body Mass Index 42.13 04/27/2020 11:26 AM CDT documented in this encounter Progress Notes * YANELIS Cotton - 04/27/2020 11:20 AM CDT Images from the original note were not included. _ Reason for Visit: UTI Symptoms (frequency, strong odor, burning with urination also, the past2 days) History of Present Illness: HPI Leti Soto is a 29-year-old female here for burning and frequency with urination. She does not have fever , chills, diarrhea, vomiting or cough. Symptoms present about 2 days She continues to lose weight but this is something that she is trying to do. ROS: Review of Systems Feeling well. Denies [...] Outpatient Medications Marked as Taking for the 04/27/20 encounter (Office Visit) with YANELIS Cotton Medication Sig Dispense Refill ??? buPROPion XL (WELLBUTRIN XL) 150 MG 24 hr tablet Take 3 tablets (450 mg total) by mouth daily. 270 tablet 2 ??? FLUoxetine 20 MG capsule Take 20 mg by mouth daily. ??? phenazopyridine 100 MG tablet Take 1 tablet (100 mg total) by mouth 3 (three) times daily as needed for Pain. 9 tablet 0 ??? sulfamethoxazole-trimethoprim (BACTRIM DS) 800-160 MG tablet Take 1 tablet by mouth 2 (two) times daily for 10 days. 20 tablet 0 Allergies Allergen Reactions ??? Tramadol Other (see [...] There is no rebound and no guarding. She does have suprapubic tenderness. Musculoskeletal: Normal range of motion. Patient exhibits no edema, tenderness or deformity. Lymphadenopathy: Patient has no cervical adenopathy. Neurological: Patient is alert and oriented to person, place, and time. Skin: No rash noted. No erythema. Psychiatric: Patient has a normal mood and affect. The behavior is normal. Thought content normal. No flowsheet data found. Vitals: 04/27/20 1126 Patient Position: Sitting BP Location: Left arm Cuff size: Adult Large BP: 120/82 Pulse: 82 Body mass index is 42.13 kg/m??. Diagnoses/Impression: 1. Burning with urination URINALYSIS AUTO DIP phenazopyridine 100 MG tablet sulfamethoxazole-trimethoprim (BACTRIM DS) 800-160 MG tablet 2. Urinary tract infection without hematuria, site unspecified phenazopyridine 100 MG tablet sulfamethoxazole-trimethoprim (BACTRIM DS) 800-160 MG tablet CULTURE URINE Orders Placed This Encounter ??? URINALYSIS AUTO DIP ??? FLUoxetine 20 MG capsule ??? phenazopyridine 100 MG tablet ??? sulfamethoxazole-trimethoprim (BACTRIM DS) 800-160 MG tablet ??? CULTURE URINE Recommendations and Plan: 1. Burning with urination - URINALYSIS AUTO DIP UTI precautions were given patient was instructed to drink lots of liquids. To avoid caffeine products. To make sure she had urinates after intercourse. We will send urine for culture. Patient should follow annual wellness exams recommended for age and sex of patient. Items to consider but not limited included yearly annual fasting labs, colonscopy or cologuard when indicated. PSA and prostate for males. Mammogram and female exam for females, Miladis Sosa PA-C evaluated and Dr Jordan López reviewed and agrees with plan. Cosigned by Jordan López MD at 04/29/2020 8:45 AM CDT documented in this encounter Plan of Treatment Not on file documented as of this encounter Procedures Procedure Name Priority Date/Time Associated Diagnosis Comments URINALYSIS AUTO DIP Routine 04/27/2020 Burning with urination documented in this encounter Results * (ABNORMAL) CULTURE URINE (04/27/2020 9:57 PM CDT) SPEC DESCRIPTION URINE CLEAN CATCH 04/27/2020 9:10 PM CDT [facility] SPECIAL REQUESTS NO SPECIAL REQUEST 04/27/2020 9:10 PM CDT [facility] CULTURE RESULT 10,000-49,0 00 COL/ML ESCHERICHIA COLI (A) 04/30/2020 8:59 AM CDT [facility] URINE SPECIMEN OBTAINED BY CLEAN CATCH PROCEDURE / Unknown 04/27/2020 9:57 PM CDT 04/27/2020 9:58 PM CDT Narrative Organism Antibiotic Method Susceptibility Escherichia coli AMPICILLIN RANDALL (VITEK) <=2: Sensitive Escherichia coli AMPICILLIN/SULBACTAM RANDALL (VITEK) <=2: Sensitive Escherichia coli CEFTRIAXONE RANDALL (VITEK) <=1: Sensitive Escherichia coli CEFTAZIDIME RANDALL (VITEK) <=1: Sensitive Escherichia coli CEFAZOLIN RANDALL (VITEK) <=4: Sensitive Escherichia coli ESBL RANDALL (VITEK) NEG: Sensitive Escherichia coli NITROFURANTOIN RANDALL (VITEK) <=16: Sensitive Escherichia coli GENTAMICIN RANDALL (VITEK) <=1: Sensitive Escherichia coli LEVOFLOXACIN RANDALL (VITEK) <=0.12: Sensitive Escherichia coli PIPRACIL/TAZO RANDALL (VITEK) <=4: Sensitive Escherichia coli TRIMETH-SULFAMETH. RANDALL (VITEK) <=20: Sensitive Miladis HILARIO MICROBIOLOGY - GENERAL ORDER CARLOS Final Result [facility] [address] [place] [address], [place] [phone] [facility] [address] [place] [address], [place] [phone] * URINALYSIS AUTO DIP (04/27/2020) COLOR (U) OTHER [facility] ([address]), [place] TRANSPARENCY CLEAR [address] ([address]), [place] GLUCOSE (U) NEGATIVE NEGATIVE MG/DL [facility] ([address]), [place] BILIRUBIN (U) NEGATIVE NEGATIVE [address] ([address]), [place] KETONES MG/DL (U) NEGATIVE NEGATIVE MG/DL [facility] ([address]), [place] SPECIFIC GRAVITY (U) 1.005 1.001 - 1.[address] ([address]), [place] BLOOD (U) LARGE (3+ Hemolyzed, About 250 rbc/uL) NEGATIVE [facility] ([address]), [place] U PH 6.0 5.0 - 9.[address] ([address]), [place] PROTEIN (U) NEGATIVE NEGATIVE mg/dL [facility] ([address]), [place] UROBILINOGEN 0.2 0.2 - 1.0 EU/dL = mg/dL [facility] ([address]), [place] NITRITES NEGATIVE NEGATIVE MG/DL [facility] ([address]), [place] LEUKOCYTES (U) 1+ (SMALL) NEGATIVE [facility] ([address]), [place] URINE SPECIMEN OBTAINED BY CLEAN CATCH PROCEDURE / Unknown 04/27/2020 Miladis HILARIO URINE ORDERABLES Final Resul t [address] ([address]), [place] [address] [place] [address], documented in this encounter Visit Diagnoses Diagnosis Burning with urination- Primary Dysuria Urinary tract infection without hematuria, site unspecified documented in this encounter Care Teams Accounts Payable Technician Relationship Specialty Start [place] [address] [place] [address] PCP - General PHYSICIAN EDITOR NEWSPAPER 02/10/20 01/04/22 documented as of this encounter
--- OUTSIDE RECORDS SUMMARY | 2024-10-07 02:49 | XMS_ITS | Encounter Summary ---
Author Organization [facility] Address [address] [place] [address]. [place], [place] [id number] [place] [address] Care Team Providers Care Humane Officer Name Role Phone Miladis Sosa Primary Care Provider [phone] Encounter Details Date Type Department Care Team (Latest Contact Info) Description 04/27/2020 9:09 PM CDT - 04/27/2020 11:59 PM CDT Hospital Encounter [facility] [address] [place] [address] [place] [address] [place] [address] Discharge Disposition: Home or Self Care (Routine [...] Medications at Time of Discharge buPROPion XL (WELLBUTRIN XL) 150 MG 24 hr tabletIndications :Reactive depression Take 3 tablets (450 mg total) by mouth daily. 270 tablet 2 04/13/2020 01/18/2021 FLUoxetine 20 MG capsule Take 20 mg by mouth daily. 02/09/2021 phenazopyridine 100 MG tabletIndications :Burning with urination,Urinary tract infection without hematuria, site unspecified Take 1 tablet (100 mg total) by mouth 3 (three) times daily as needed for Pain. 9 tablet 04/27/2020 04/30/2020 sulfamethoxazole- trimethoprim (BACTRIM DS) 800-160 MG tabletIndications :Burning with urination,Urinary tract infection without hematuria, site unspecified Take 1 tablet by mouth 2 (two) times daily for 10 days. 20 tablet 04/27/2020 05/07/2020 documented as of this encounter Plan of Treatment Not on file documented as of this encounter Procedures Procedure Name Priority Date/Time Associated Diagnosis Comments URINE BACTERIA CULTURE Routine 04/27/2020 9:57 PM CDT Urinary tract infection without hematuria, site unspecified documented in this encounter Results * (ABNORMAL) CULTURE URINE (04/27/2020 9:57 PM CDT) SPEC DESCRIPTION URINE CLEAN CATCH 04/27/2020 9:10 PM CDT [facility] SPECIAL REQUESTS NO SPECIAL REQUEST 04/27/2020 9:10 PM CDT [facility] CULTURE RESULT 10,000-49,0 00 COL/ML ESCHERICHIA COLI (A) 04/30/2020 8:59 AM CDT [facility] URINE SPECIMEN OBTAINED BY CLEAN CATCH [...] MICROBIOLOGY - GENERAL ORDER CARLOS Final Result [facility] [address] [place] [address], [place] [phone] [facility] [address] [place] [address], documented in this encounter Visit Diagnoses Diagnosis Urinary tract infection without hematuria, site unspecified documented in this encounter Care Teams Humane Officer Relationship Specialty Start [place] [address] [place] [address] PCP - General PHYSICIAN NAVAL GUNFIRE SPOTTER 02/10/20 01/04/22 documented as of this encounter
--- OUTSIDE RECORDS SUMMARY | 2024-10-07 02:49 | XMS_ITS | Encounter Summary ---
Author Organization [facility] Address [address] [place] [address]. [place], [place] [address] [place] [address] Care Team Providers Care Parole Hearing Officer Name Role Phone Jordan Ernst DO Primary Care Provider [phone] Encounter Details Date Type Department Care Team (Late st Contact Info) Description 01/02/2015 Abstract [facility] [place] [address] Moses Barney DO [address] [facility] [address] [place] [id number] Social History Tobacco Use Types Packs/Day Years [...] as of this encounter Visit Diagnoses Diagnosis Routine general medical examination at a health care facility documented in this encounter Care Teams Parole Hearing Officer Relationship Specialty Start Date End Date Jordan Ernst DO [address] [place] [address] PCP - General 01/02/15 09/08/15 documented as of this encounter
--- OUTSIDE RECORDS SUMMARY | 2024-10-07 02:49 | XMS_ITS | Encounter Summary ---
Author Organization [facility] Address [address] [place] [address]. [place], [place] [address] [place] [address] Care Team Providers Care Hand Molder Meat Name Role Phone Unavailable Primary Care Provider Unavailabl e Reason for Visit * Reason Comments Follow Up 1 month follow up Encounter Details Date Type Department Care Team (Late st Contact Info) Description 11/22/2019 8:40 AM CHARGING MACHINE OPERATOR Office Visit [facility] Family & Internal Medicine [facility] [address] [place] [address] [place] [address] [place] [address] Follow Up (1 month follow up ) Social History Tobacco Use Types Packs/Day [...] Reading Time Taken Comments Blood Pressure 118/80 11/22/2019 8:48 AM CHARGING MACHINE OPERATOR Pulse 66 11/22/2019 8:48 AM CHARGING MACHINE OPERATOR Temperature 36.7 ??C (98.1 ??F) 11/22/2019 8:48 AM CS T Respiratory Rate 18 11/22/2019 8:48 AM CHARGING MACHINE OPERATOR Oxygen Saturation 98% 11/22/2019 8:48 AM CHARGING MACHINE OPERATOR Inhaled Oxygen Concentration - - Weight 130.2 kg (287 lb) 11/22/2019 8:48 AM CHARGING MACHINE OPERATOR Height 167.6 cm (5' 6 ) 11/22/2019 8:48 AM CHARGING MACHINE OPERATOR Body Mass Index 46.32 11/22/2019 8:48 AM CHARGING MACHINE OPERATOR documented in this encounter Progress Notes * YANELIS Cotton - 11/22/2019 8:40 AM CST Images from the original note were not included. _ Reason for Visit: Follow Up (1 month follow up ) History of Present Illness: HPI Leti Soto is a 28-year-old female here for evaluation of her depression. She is feeling better she has more energy she is controlling her diet better. She is happy with the response of Wellbutrin. She has dropped 10 pound since her last visit. She did not hear from the dietary clinic so she is set at something up on her own independently with [facility]. ROS: Review of Systems Feeling well. Denies [...] Outpatient Medications Marked as Taking for the 11/22/19 encounter (Office Visit) with YANELIS Cotton Medication Sig Dispense Refill ??? buPROPion XL (WELLBUTRIN XL) 300 MG 24 hr tablet Take 1 tablet (300 mg total) by mouth daily. 30 tablet 2 ??? fluoxetine 20 MG capsule Take 20 mg by mouth daily. Allergies Allergen Reactions ??? Tramadol Other (see [...] content normal. No flowsheet data found. Vitals: 11/22/19 0848 BP Location: Left arm BP: 118/80 Pulse: 66 Body mass index is 46.32 kg/m??. Diagnoses/Impression: 1. Major depressive disorder with current active episode, unspecified depression episode severity, unspecified whether recurrent 2. Other depression buPROPion XL (WELLBUTRIN XL) 300 MG 24 hr tablet Orders Placed This Encounter ??? buPROPion XL (WELLBUTRIN XL) 300 MG 24 hr tablet Recommendations and Plan: She will follow-up in 3 months she will talk to her HHA regarding whether not she needs to stay on the Prozac. strongly encourage diet and exercise for elevated BMI Patient should follow annual wellness exams recommended for age and sex of patient. Items to consider but not limited included yearly annual fasting labs, colonscopy or cologuard when indicated. PSA and prostate for males. Mammogram and female exam for females, Miladis Sosa PA-C evaluated and Dr Jordan López reviewed and agrees with plan. Cosigned by Jrodan López MD at 11/22/2019 12:07 PM CHARGING MACHINE OPERATOR GING MACHINE OPERATOR GING MACHINE OPERATOR documented in this encounter Plan of Treatment Not on file documented as of this encounter Visit Diagnoses Diagnosis Major depressive disorder with current active episode, unspecified depression episode severity, unspecified whether recurrent- Primary Other depression documented in this encounter
--- OUTSIDE RECORDS SUMMARY | 2024-10-07 02:49 | XMS_ITS | Encounter Summary ---
Author Organization [facility] Address [address] [place] [address]. [place], [place] [address] [place] [address] Care Team Providers Care Territory Account Representative Name Role Phone Unavailable Primary Care Provider Unavailabl e Reason for Referral * Consultation (Routine) - Closed Specialty Diagnoses / Procedures Referred By Contac t Referred To Contact NUTRITION / [facility] Diabetes and Nutrition Diagnoses Class 3 severe obesity with body mass index (BMI) of 45.0 to 49.9 in adult, unspecified obesity type, unspecified whether serious comorbidity present ([facility]) [place] [address] [place] [address] Phone: tel: fax: [facility] Diabetes & Nutrition Services [address] [place] [address] Phone: tel: fax: Referral ID Status Reason Start Date Expiration Date Visits Re quested Visits Authorized [id number] Closed 10/23/2019 11/22/2020 1 1 RAISER Reason for Visit * Reason Comments New Patient to establish Encounter Details Date Type Department Care Team (Late st Contact Info) Description 10/23/2019 11:00 AM FOX RAISER Office Visit [facility] Medical Group Family & Internal Medicine [facility] [address] [place] [address] [place] [address] [place] [address] New Patient (to establish) Social History Tobacco Use Types Packs/Day Years [...] Reading Time Taken Comments Blood Pressure 122/80 10/23/2019 10:59 AM FOX RAISER Pulse 92 10/23/2019 10:59 AM FOX RAISER Temperature - - Respiratory Rate 18 10/23/2019 10:59 AM FOX RAISER Oxygen Saturation 97% 10/23/2019 10:59 AM FOX RAISER Inhaled Oxygen Concentration - - Weight 134.7 kg (297 lb) 10/23/2019 10:59 AM FOX RAISER Height 167.6 cm (5' 6 ) 10/23/2019 10:59 AM FOX RAISER Body Mass Index 47.94 10/23/2019 10:59 AM FOX RAISER documented in this encounter Patient Instructions * Patient Instructions* YANELIS Cotton - 10/23/2019 11:00 AM FOX RAISER Images from the original note were not included. Patient Education Patient Education Foot Sprain Discharge Instructions About this topic A foot sprain happens if you move suddenly or twist your foot. You may stretch the ligament too much and it may tear. Ligaments are strong, elastic-like fibers that keep your bones connected and yourjoints steady. Ligaments normally stretch a small amount. This can happen if you fall, step on uneven ground, step in a hole, or when you play a sport like soccer or basketball. Your doctor will treat your foot sprain based on how bad it is. What care is needed at home? ?? Ask your doctor what you need to do when you go home. Make sure you ask questions if you do not understand what the doctor says. This way you will know what you need to do. ?? Place an ice pack or a bag of frozen peas wrapped in a towel over the painful part. Never put ice right on the skin. Do not leave the ice on more than 10 to 15 minutes at a time. Do this 3 to 4 times a day. ?? Prop your foot on pillows to help with swelling. ?? Wrap your foot with an elastic bandage to help with swelling. ?? Don't walk on your injured foot if your doctor tells you not to do so. Use crutches if ordered by your doctor. This will help keep your weight off your foot. ?? Your doctor may ask you to wear a brace or splint to prevent more damage to your foot. ?? Slowly begin to stretch your foot when swelling and pain improve. What follow-up care is needed? ?? Your doctor may ask you to make visits to the office to check on your progress. Be sure to keep these visits. ?? Ask your doctor when you can take off your brace or splint if you wear one. ?? Your doctor may send you to physical therapy to help you heal faster. ?? If the injury does not heal as expected, your doctor may order an x-ray to look for a broken bone. What drugs may be needed? The doctor may order drugs to: ?? Help with pain and swelling Will physical activity be limited? You should not do physical activity that makes your health problem worse. Talk to your doctor if you run, work out, or play sports. You may not be able to do those things until your pain gets better.Ask your doctor about the right amount of activity for you. What problems could happen? ?? Pain does not get better ?? Unstable foot because the sprained ligament healed poorly ?? More likely to break an ankle or foot What can be done to prevent this health problem? ?? Stay active and work out to keep your muscles strong and flexible. ?? Warm up before hard exercise or sports. ?? Take extra care when you walk on uneven ground. ?? Use proper footwear when you play sports. This may include athletic supports, shoes, or shoe inserts that keep your foot stable. ?? Wear shoes that fit your feet properly. ?? If this injury continues to happen, do not wear high-heeled shoes. ?? If you have had this injury in the past, consider wearing a brace for more stability. When do I need to call the doctor? ?? Pain or swelling gets worse ?? Ankle is weak or wobbly Teach Back: Helping You Understand The Teach Back Method helps you understand the information we are giving you. The idea is simple. After talking with the staff, tell them in your own words what you were just told. This helps to makesure the staff has covered each thing clearly. It also helps to explain things that may have been abit confusing. Before going home, make sure you are able to do these: ?? I can tell you about my condition. ?? I can tell you what may help ease my pain. ?? I can tell you what I will do if I have more pain or swelling. Where can I learn more? [place] [employer] http://www.orthoinfo.org/topic.cfm?tqpvg=A95466 National [place] of Arthritis and Musculoskeletal and Skin Diseases http://www.niams.nih.gov/Health_Info/Sprains_Strains/default.asp Last Reviewed Date 2018-04-18 Consumer Information Use and Disclaimer This information is not specific medical advice and does not replace information you receive from your health care provider. This is only a brief summary of general information. It does NOT include all information about conditions, illnesses, injuries, tests, procedures, treatments, therapies, discharge instructions or life-style choices that may apply to you. You must talk with your health care provider for complete information about your health and treatment options. This information should not be used to decide whether or not to accept your health care provider???s advice, instructions or recommendations. Only your health care provider has the knowledge and training to provide advice that is right for you. Copyright Copyright ?? 2019 [employer] and its affiliates and/or licensors. All rights reserved. RAISER documented in this encounter Progress Notes * YANELIS Cotton - 10/23/2019 11:00 AM CST Images from the original note were not included. _ Reason for Visit: New Patient (to establish) History of Present Illness: [facility] Leti Audelia Soto is a 28-year-old female here for complaints of right foot pain states that the pain is been off and on since she has been back to work she had a baby about 5 months ago. It is mainly her right foot on the outer aspect of the foot about thefifth tarsal bone. She has a history of flat feet. Patient is currently working on a weight reduction program she used to be as high as 500 pounds. When she delivered her baby she was 334 pounds though she is definitely down over the past few months.She is asking for consultation with dietary to help her with weight control. We also talked about the different medications that are available for weight reduction is talked about phentermine explained her that there are some risk involved with that medication above the risk that she would take with some other medications that are available. She is interested in trying the Wellbutrin possibly converting to Contrave over time. ROS: Review of Systems Feeling well. Denies [...] weight gain or loss. No fatigue. Medications: No outpatient medications have been marked as taking for the 10/23/19 encounter (Office Visit) with YANELIS Cotton. Allergies Allergen Reactions ??? Tramadol Other (see [...] and time. Patient appears well-developed and well-nourished. Marked obesity HENT: Right Ear: External ear normal. Left [...] The behavior is normal. Thought content normal. Right foot was examined there does appear to be hump-like bony structure on the lateral aspect of the fifth tarsal Vitals: 10/23/19 1059 BP: 122/80 Pulse: 92 Body mass index is 47.94 kg/m??. Diagnoses/Impression: No diagnosis found. R foot pain obesity Orders Placed This Encounter ??? fluoxetine 20 MG capsule Recommendations and Plan: See instructions We talked about diet and exercise much as possible and will refer her to the dietary nutrition needs as she requested. She is going start on the Wellbutrin 300 mg once daily in the morning. She has no history of seizure disorder and she does not engage in alcohol usage. Patient has been under the treatment with her CHAR PULLER for depression states that she is feeling somewhat better since she was on the Prozac for about a month now I did she is supposed to be hearing from her CHAR PULLER today. I suggested that she discuss with them that we are going to add the Wellbutrin. That is possible down the road that we could possibly eliminate the Prozac but for now I thinkit be fine for her to take both medications as long as her CHIP MIXER agrees. She is not nursing her baby nor is she trying to get at this time She will follow-up in 1 month Patient should follow annual wellness exams recommended for age and sex of patient. Items to consider but not limited included yearly annual fasting labs, colonscopy or cologuard when indicated. PSA and prostate for males. Mammogram and female exam for females, Miladis Sosa PA-C evaluated and Dr Jordan López reviewed and agrees with plan. Cosigned by Jordan López MD at 10/23/2019 5:18 PM FOX RAISER RAISER RAISER documented in this encounter Plan of Treatment Scheduled Referrals Name Type Priority Associated Diagnoses Orde r Schedule Ambulatory Referral to Dietitian/Nutrition Referral Routine Class 3 severe obesity with body mass index (BMI) of 45.0 to 49.9 in adult, unspecified obesity type, unspecified whether serious comorbidity present ([facility]) Ordered: 10/23/2019 documented as of this encounter Visit Diagnoses Diagnosis Class 3 severe obesity with body mass index (BMI) of 45.0 to 49.9 in adult, unspecified obesity type, unspecified whether serious comorbidity present ([facility])- Primary Other depression Right foot pain Pain in limb documented in this encounter Administered Medications Administered Medications Medication Order MAR Action Action Date Dose Rate Site Tuberculin Given 03/13/2009 Tuberculin Given 03/23/2009 documented in this encounter
--- OUTSIDE RECORDS SUMMARY | 2024-10-07 02:49 | XMS_ITS | Encounter Summary ---
Author Organization [facility] Address [address] [place] [address]. [place], [place] [address] [place] [address] Care Team Providers Care Recreation Instructor Name Role Phone Jordan Ernst DO Primary Care Provider [phone] Jordan Ernst DO Primary Care Provider [phone] Encounter Details Date Type Department Care Team (Late st Contact Info) Description 12/13/2010 Abstract [facility] [address] [place], [place] [id number] Mark Kaba MD [address] [address] Social History Tobacco Use Types Packs/Day Years [...] as of this encounter Visit Diagnoses Diagnosis Abdominal pain Abdominal pain, unspecified site documented in this encounter Care Teams Recreation Instructor Relationship Specialty Start Date End Date Jordan Ernst DO [address] [place], [place] [id number] PCP - General 01/02/15 09/08/15 Jordan Ernst DO [address] [place], [place] [id number] PCP - General 12/13/10 01/01/15 documented as of this encounter
--- OUTSIDE RECORDS SUMMARY | 2024-10-07 02:49 | XMS_ITS | Encounter Summary ---
Author Organization [facility] Address [address] [place] [address]. [place], [place] [address] [place] [address] Care Team Providers Care Steam Oven Operator Name Role Phone Miladis Sosa Primary Care Provider [phone] Reason for Visit * Reason Comments Depression follow up Encounter Details Date Type Department Care Team (Late st Contact Info) Description 02/09/2021 8:00 AM CDT Office Visit [facility] Family & Internal Medicine [facility] [address] [place] [address] [place] [address] [place] [address] Depression (follow up) Social History Tobacco Use Types Packs/Day Years [...] Sign Reading Time Taken Comments Blood Pressure 118/82 02/09/2021 8:16 AM CDT Pulse 66 02/09/2021 8:16 AM CDT Temperature 36.8 ??C (98.2 ??F) 02/09/2021 8:16 AM CD T Respiratory Rate 16 02/09/2021 8:16 AM CDT Oxygen Saturation 98% 02/09/2021 8:16 AM CDT Inhaled Oxygen Concentration - - Weight 102.5 kg (226 lb) 02/09/2021 8:16 AM CDT Height 167.6 cm (5' 6 ) 02/09/2021 8:16 AM CDT Body Mass Index 36.48 02/09/2021 8:16 AM CDT documented in this encounter Progress Notes * YANELIS Cotton - 02/09/2021 8:00 AM CDT Images from the original note were not included. _ Reason for Visit: Depression (follow up) History of Present Illness: [facility] Leti Soto is a 30-year-old female here for follow-up of her depression symptoms. Patient states that she is doing well. She tries to be as optimisticas possible. She is on both the bupropion and fluoxetine. She feels like she has a good combinationof both. She is able to control her weight very well. She is going to get to the bottom of what is making her eat. ROS: Review of Systems Feeling well. Denies [...] Outpatient Medications Marked as Taking for the 02/09/21 encounter (Office Visit) with YANELIS Cotton Medication Sig Dispense Refill ??? buPROPion XL 150 MG 24 hr tablet TAKE 3 TABLETS(450 MG) BY MOUTH DAILY 270 tablet 1 ??? FLUoxetine 40 MG capsule Take 1 capsule (40 mg total) by mouth daily. 90 capsule 1 Allergies Allergen Reactions ??? Tramadol Other [...] content normal. No flowsheet data found. Vitals: 02/09/21 0816 Patient Position: Sitting BP Location: Left arm Cuff size: Adult Large BP: 118/82 Pulse: 66 Body mass index is 36.48 kg/m??. Assessment and Plan Encounter Diagnose(s) ICD-10-CM ICD-9-CM SNOMED CT(R) 1. Reactive depression F32.9 300.4 REACTIVE DEPRESSION (SITUATIONAL) FLUoxetine 40 MG capsule buPROPion XL 150 MG 24 hr tablet There are no diagnoses linked to this encounter. Orders Placed This Encounter ??? DISCONTD: FLUoxetine 40 MG capsule ??? FLUoxetine 40 MG capsule ??? buPROPion XL 150 MG 24 hr tablet Will follow patient back up in 6 months. Patient should follow annual wellness exams recommended for age and sex of patient. Items to consider but not limited included yearly annual fasting labs, colonscopy or cologuard when indicated. PSA and prostate for males. Mammogram and female exam for females, Miladis Sosa PA-C evaluated and Dr Jordan López reviewed and agrees with plan. Cosigned by Jordan López MD at 02/09/2021 9:11 AM CDT documented in this encounter Plan of Treatment Not on file documented as of this encounter Visit Diagnoses Diagnosis Reactive depression Dysthymic disorder documented in this encounter Care Teams Steam Oven Operator Relationship Specialty [place] [address] [place] [address] PCP - General PHYSICIAN SCHOOL GUIDANCE COUNSELOR 02/10/20 01/04/22 documented as of this encounter
--- OUTSIDE RECORDS SUMMARY | 2024-10-07 02:49 | XMS_ITS | Encounter Summary ---
Author Organization [facility] Address [address] [place] [address]. [place], [place] [address] [place] [address] Care Team Providers Care Net Solutions Architect Name Role Phone Miladis Sosa Primary Care Provider [phone] Crystal Cedeno Primary Care Provider [phone] Reason for Visit * Reason Comments Pathology (SCAN) Encounter Details Date Type Department Care Team ([facility] Contact Info) Description 02/09/2021 Scan HEALTH INFO SRV[facility] Scanned, Documents Pathology (SCAN) Social History Tobacco Use Types Packs/Day Years [...] Procedure Name Priority Date/Time Associated Diagnosis Comments OUTSIDE CYTOPATH CERV/VAG INTERPRET (PAP) 02/09/2021 documented in this encounter Results * PAP SMEAR WITH HPV (02/09/2021) 02/09/2021 Narrative 02/09/2021 Ordered by an unspecified provider. us Documents Scanned SCANNING Final Result documented in this encounter Visit Diagnoses Not on filedocumented in this encounter Additional Health Concerns Infection Onset Date Last Indicated Resolved Time COVID-19 Rule Out 06/17/2021 06/17/2021 06/18/2021 11:00 PM CDT documented as of this encounter Care Teams Net Solutions Architect Relationship Specialty [place] [address] [place] [address] PCP - General PHYSICIAN TANKAGE SUPERVISOR 02/10/20 01/04/22 Crystal Cedeno APNP [address] [place] [address] PCP - General NURSE PRACTITIONER 01/05/22 documented as of this encounter
--- OUTSIDE RECORDS SUMMARY | 2024-10-07 02:49 | XMS_ITS | Encounter Summary ---
Author Organization [facility] Address [address] [place] [address]. [place], [place] [address] [place] [address] Care Team Providers Care Register Of Wills Name Role Phone Jose Sosa Primary Care Provider [phone] Reason for Visit * Reason Onset Date Comments Medication Request 09/07/2021 Encounter Details Date Type Department Care Team (Late st Contact Info) Description 09/07/2021 Telephone [facility] Medical Group Family & Internal Medicine [facility] [address] [place] [address] [place] [address] [place] [address] Medication Request Social History Tobacco Use Types Packs/Day [...] as of this encounter Progress Notes * YANELIS Cotton - 09/07/2021 12:13 PM CST I will send out a 90-day supply TRIC MOTOR ASSEMBLER AND TESTER * Lidia Borjas - 09/07/2021 10:50 AM CST .. Medication and strength: Bupropion xl 150 mg Pharmacy: [facility] Call back #: [phone] Last office visit at this office: Last visit with JOSE SOSA in FAMILY PRACTICE was on: 02/09/2021 in [facility] Future appointment scheduled: Future Appointments Date Time Provider Department Center 09/14/2021 10:40 AM YANELIS Cotton [facility] TRIC MOTOR ASSEMBLER AND TESTER documented in this encounter Plan of Treatment Not on file documented as of this encounter Visit Diagnoses Diagnosis Reactive depression Dysthymic disorder documented in this encounter Additional Health Concerns Assessment Noted Time PHQ-9 Depression Total Score: 1 06/17/20 21 8:51 AM CDT documented as of this encounter Care Teams Register Of Wills Relationship Specialty [place] [address] [place] [address] PCP - General PHYSICIAN ORAL SURGEON 02/10/20 01/04/22 documented as of this encounter
--- OUTSIDE RECORDS SUMMARY | 2024-10-07 02:50 | XMS_ITS | Encounter Summary ---
Author Organization [facility] Address [address] [place] [address]. [place], [place] [address] [place] [address] Care Team Providers Care Accounts Receivable Associate Name Role Phone Jordan Ernst DO Primary Care Provider Jordan Ernst DO Primary Care Provider [phone] Encounter Details Date Type Department Care Team (Latest Contact Info) Description 10/06/2009 Abstract [facility] Medical Group Jordan Ernst DO [address] [place] [address] Social History Tobacco Use Types Packs/Day Years [...] on filedocumented in this encounter Care Teams Accounts Receivable Associate Relationship Specialty Start Date End Date Jordan Ernst DO [address] [place] [address] PCP - General 01/02/15 09/08/15 Jordan Ernst DO [address] [place] [address] PCP - General 12/13/10 01/01/15 documented as of this encounter
--- OUTSIDE RECORDS SUMMARY | 2024-10-07 02:50 | XMS_ITS | Encounter Summary ---
Author Organization [facility] Address [address] [place] [address]. [place], [place] [address] [place] [address] Care Team Providers Care Management Trainee Marketing Name Role Phone Jordan Ernst DO Primary Care Provider [phone] Jordan Ernst DO Primary Care Provider [phone] Encounter Details Date Type Department Care Team (Late st Contact Info) Description 10/21/2007 Abstract [facility] [address] [place], [place] [address] Jordan Ernst DO [address] [place], [place] [address] Social History Tobacco Use Types Packs/Day Years [...] on filedocumented in this encounter Care Teams Management Trainee Marketing Relationship Specialty Start Date End Date Jordan Ernst DO [facility] [place] [address] PCP - General 01/02/15 09/08/15 Jordan Ernst DO [address] [place] [address] PCP - General 12/13/10 01/01/15 documented as of this encounter
--- OUTSIDE RECORDS SUMMARY | 2024-10-07 02:50 | XMS_ITS | Encounter Summary ---
Author Organization [facility] Address [address] [place] [address]. [place], [place] [address] [place] [address] Care Team Providers Care Electric Motor Tester Name Role Phone Jordan Ernst DO Primary Care Provider [phone] Jordan Ernst DO Primary Care Provider [phone] Encounter Details Date Type Department Care Team (Late st Contact Info) Description 11/05/2009 Emergency [facility] Emergency Room [address] [place], [place] [id number] Nitin Monroy MD [address] [place] [address] [place] [address] Social History Tobacco Use Types Packs/Day Years [...] on filedocumented in this encounter Care Teams Electric Motor Tester Relationship Specialty Start Date End Date Jordan Ernst DO [facility] [place] [address] PCP - General 01/02/15 09/08/15 Jordan Ernst DO [address] [place] [address] PCP - General 12/13/10 01/01/15 documented as of this encounter
--- OUTSIDE RECORDS SUMMARY | 2024-10-07 02:50 | XMS_ITS | Encounter Summary ---
Author Organization [facility] Address [address] [place] [address]. [place], [place] [address] [place] [address] Care Team Providers Care Cage/Vault Supervisor Name Role Phone Jordan Ernst DO Primary Care Provider [phone] Jordan Ernst DO Primary Care Provider [phone] Encounter Details Date Type Department Care Team (Late st Contact Info) Description 01/01/2005 Emergency [facility] Emergency Room [address] [place], [place] [id number] Pita Fernandez MD [address] [facility] [address] [id number] Social History Tobacco Use Types Packs/Day Years [...] on filedocumented in this encounter Care Teams Cage/Vault Supervisor Relationship Specialty Start Date End Date Jordan Ernst DO [address] [place] [id number] PCP - General 01/02/15 09/08/15 Jordan Ernst DO [address] [place] [address] PCP - General 12/13/10 01/01/15 documented as of this encounter
--- OUTSIDE RECORDS SUMMARY | 2024-10-07 02:50 | XMS_ITS | Encounter Summary ---
Author Organization [facility] Address [address] [place] [address]. [place], [place] [address] [place] [address] Care Team Providers Care Tool And Die Maker Apprentice Name Role Phone Jordan Ernst DO Primary Care Provider [phone] Jordan Ernst DO Primary Care Provider Encounter Details Date Type Department Care Team (Late st Contact Info) Description 09/22/2007 Abstract [facility] [place] [address] Jordan Ernst DO [address] [place], [place] [address]189 Social History Tobacco Use Types Packs/Day Years [...] on filedocumented in this encounter Care Teams Tool And Die Maker Apprentice Relationship Specialty Start Date End Date Jordan Ernst DO [facility]4 [place] [address] PCP - General 01/02/15 09/08/15 Jordan Ernst DO [address] [place] [address] PCP - General 12/13/10 01/01/15 documented as of this encounter
--- OUTSIDE RECORDS SUMMARY | 2024-10-07 02:50 | XMS_ITS | Encounter Summary ---
Author Organization [facility] Address [address] [place] [address]. [place], [place] [address] [place] [address] Care Team Providers Care Water Purifier Name Role Phone Jordan Ernst DO Primary Care Provider [phone] Jordan Ernst DO Primary Care Provider [phone] Encounter Details Date Type Department Care Team (Late st Contact Info) Description 05/14/1995 Abstract [facility] [place], [place] [id number] , Generic Conversion, Social History Tobacco Use Types Packs/Day Years [...] filedocumented in this encounter Care Teams Water Purifier Relationship Specialty Start Date End Date Jordan Ernst DO [address] [place] [address] PCP - General 01/02/15 09/08/15 Jordan Ernst DO [address] [place], [place] [address]509 PCP - General 12/13/10 01/01/15 documented as of this encounter
--- OUTSIDE RECORDS SUMMARY | 2024-10-07 02:50 | XMS_ITS | Encounter Summary ---
Author Organization [facility] Address [address] [place] [address]. [place], [place] [address] [place] [address] Care Team Providers Care Director [employer] Name Role Phone Jordan Ernst DO Primary Care Provider [phone] Jordan Ernst DO Primary Care Provider [phone] Encounter Details Date Type Department Care Team (Late st Contact Info) Description 04/26/1991 Abstract [facility] [place], [place] [id number] , Generic Conversion, Social History Tobacco Use [...] filedocumented in this encounter Care Teams Director [employer] Relationship Specialty Start Date End Date Jordan Ernst DO [address] [place] [address] PCP - General 01/02/15 09/08/15 Jordan Ernst DO [address] [place], [place] [address]20[address] PCP - General 12/13/10 01/01/15 documented as of this encounter
--- OUTSIDE RECORDS SUMMARY | 2024-10-07 02:50 | XMS_ITS | Encounter Summary ---
Author Organization [facility] Address [address] [place] [address]. [place], [place] [address] [place] [address] Care Team Providers Care Deckhand Engineer Name Role Phone Jordan Ernst DO Primary Care Provider [phone] Jordan Ernst DO Primary Care Provider [phone] Encounter Details Date Type Department Care Team (Late st Contact Info) Description 08/28/2003 Abstract [facility] CONVERSION [place], [place] [id number] , Generic Conversion, Social History Tobacco Use [...] on filedocumented in this encounter Care Teams Deckhand Engineer Relationship Specialty Start Date End Date Jordan Ernst DO [address] [place] [address] PCP - General 01/02/15 09/08/15 Jordan Ernst DO [address] [place], [place] [address] PCP - General 12/13/10 01/01/15 documented as of this encounter
--- OUTSIDE RECORDS SUMMARY | 2024-10-07 02:50 | XMS_ITS | Encounter Summary ---
Author Organization [facility] Address [address] [place] [address]. [place], [place] [address] [place] [address] Care Team Providers Care Finished Goods Inspector Name Role Phone Jordan Ernst DO Primary Care Provider [phone] Jordan Ernst DO Primary Care Provider [phone] Encounter Details Date Type Department Care Team (Late st Contact Info) Description 10/03/2007 Abstract [facility] [address] [place], [place] [address] Jordan Ernst DO [address] [place], [place] [address] Social History Tobacco Use Types Packs/Day Years [...] on filedocumented in this encounter Care Teams Finished Goods Inspector Relationship Specialty Start Date End Date Jordan Ernst DO [facility] [place] [address] PCP - General 01/02/15 09/08/15 Jordan Ernst DO [address] [place] [address] PCP - General 12/13/10 01/01/15 documented as of this encounter
--- OUTSIDE RECORDS SUMMARY | 2024-10-07 02:50 | XMS_ITS | Encounter Summary ---
Author Organization [facility] Address [address] [place] [address]. [place], [place] [address] [place] [address] Care Team Providers Care Superintendent [employer]munition Storage Name Role Phone Jordan Ernst DO Primary Care Provider [phone] Jordan Ernst DO Primary Care Provider [phone] Encounter Details Date Type Department Care Team (Late st Contact Info) Description 09/03/[address] [facility] [place], [place] [address] Jordan Ernst DO [address] [place], [place] 398399 Social History Tobacco Use Types Packs/Day Years [...] on filedocumented in this encounter Care Teams Superintendent [employer]munition [employer] Relationship Specialty Start Date End Date Jordan Ernst DO [facility]4 [place] [address] PCP - General 01/02/15 09/08/15 Jordan Ernst DO [address] [place] [address] PCP - General 12/13/10 01/01/15 documented as of this encounter
--- OUTSIDE RECORDS SUMMARY | 2024-10-07 02:50 | XMS_ITS | Encounter Summary ---
Author Organization [facility] Address [address] [place] [address]. [place], [place] [address] [place] [address] Care Team Providers Care Independent Agent Music Education Name Role Phone Jordan Ernst DO Primary Care Provider [phone] Jordan Ernst DO Primary Care Provider [phone] Encounter Details Date Type Department Care Team (Late st Contact Info) Description 05/03/2009 Abstract [facility] [place], [place] [id number] Mamie Carr, [address] [place] [address] Social History Tobacco Use Types Packs/Day Years [...] on filedocumented in this encounter Care Teams Independent Agent Music Education Relationship Specialty Start Date End Date Jordan Ernst DO [address] [place], [place] [id number] PCP - General 01/02/15 09/08/15 Jordan Ernst DO [address] [place] [address] PCP - General 12/13/10 01/01/15 documented as of this encounter
--- OUTSIDE RECORDS SUMMARY | 2024-10-07 02:50 | XMS_ITS | Encounter Summary ---
Author Organization [facility] Address [address] [place] [address]. [place], [place] [address] [place] [address] Care Team Providers Care Back Panel Padder Name Role Phone Jordan Ernst DO Primary Care Provider [phone] Jordan Ernst DO Primary Care Provider [phone] Encounter Details Date Type Department Care Team (Late st Contact Info) Description 05/09/1991 Abstract [facility] CONVERSION [place], [place] [id number] , Generic Conversion, Social History Tobacco Use [...] on filedocumented in this encounter Care Teams Back Panel Padder Relationship Specialty Start Date End Date Jordan Ernst DO [address] [place] [address] PCP - General 01/02/15 09/08/15 Jordan Ernst DO [address] [place], [place] 6[address]99 PCP - General 12/13/10 01/01/15 documented as of this encounter
--- OUTSIDE RECORDS SUMMARY | 2024-10-07 02:50 | XMS_ITS | Encounter Summary ---
Author Organization [facility] Address [address] [place] [address]. [place], [place] [address] [place] [address] Care Team Providers Care Wholesale Parts Salesperson Name Role Phone Jordan Ernst DO Primary Care Provider [phone] Jordan Ernst DO Primary Care Provider [phone] Encounter Details Date Type Department Care Team (Late st Contact Info) Description 04/20/1992 Abstract [facility] CONVERSION [place], [place] [id number] , Generic Conversion, Social History Tobacco Use [...] on filedocumented in this encounter Care Teams Wholesale Parts Salesperson Relationship Specialty Start Date End Date Jordan Ernst DO [address] [place] [address] PCP - General 01/02/15 09/08/15 Jordan Ernst DO [address] [place], [place] [address]479 PCP - General 12/13/10 01/01/15 documented as of this encounter
--- OUTSIDE RECORDS SUMMARY | 2024-10-07 02:50 | XMS_ITS | Encounter Summary ---
Author Organization [facility] Address [address] [place] [address]. [place], [place] [address] [place] [address] Care Team Providers Care Stuffer Name Role Phone Jordan Ernst DO Primary Care Provider [phone] Jordan Ernst DO Primary Care Provider [phone] Encounter Details Date Type Department Care Team (Late st Contact Info) Description 01/02/2004 Emergency [facility] Emergency Room [place], [place] [id number] Nitin Monroy MD [address] [place] [address] [place] [address] Social History Tobacco Use Types [...] on filedocumented in this encounter Care Teams Stuffer Relationship Specialty Start Date End Date Jordan Ernst DO [facility]4 [place], [place] [address] PCP - General 01/02/15 09/08/15 Jordan Ernst DO [address] [place] [address] PCP - General 12/13/10 01/01/15 documented as of this encounter
--- OUTSIDE RECORDS SUMMARY | 2024-10-07 02:53 | XMS_ITS | Encounter Summary ---
Author Organization [facility] Address [address] [place] [address] Care Team Providers Care Business Banking Sales Assistant Name Role Phone Maggi Kim NP Primary Care Provider [phone] Encounter Details Date Type Department Care Team (Latest Contact Info) Description 11/09/2023 8:30 AM HOT FRAME TENDER Office Visit [facility] Medical Group Primary Care [address] [address] Maggi Kim WARPER CREELER [facility] [address] RONA (generalized anxiety disorder) (Primary Dx); Attention deficit hyperactivity disorder (ADHD), predominantly inattentive type; Morbid obesity with BMI of 40.0-44.9, adult (HCC) Social History Tobacco Use Types Packs/Day Years Used Date Smoking Tobacco: Never Smokeless Tobacco: Never Tobacco Cessation:Counseling Given: Not Answered AUDIT-C Answer Date Recorded Q1: How often do you have a drink containing alc ohol? Monthly or less 06/08/2023 Q2: How many drinks containi ng alcohol do you have on a typical day when you are drinking? 1 or 2 06/08/2023 Q3: How often do you have si x or more drinks on one occasion? Never 06/08/2023 PHQ-2 Answer Date Recorded PHQ-2 Total Score (If total score is 3 or more points, staff should administer the PHQ-9) 1 06/08/2023 Personal Safety Answer Date Recorded Getting School Help Needed Not on file 09/12 Comments No Sex and Gender Information Value Date Recorded Sex Assigned at Not on file Legal Sex Female 7:03 PM HOT FRAME TENDER Gender Identity Not on file Sexual Orientation Not on file documented as of this encounter Last Filed Vital Signs Vital Sign Reading Time Taken Comments Blood Pressure 125/90 11/09/2023 8:15 AM HOT FRAME TENDER Pulse 80 11/09/2023 8:15 AM HOT FRAME TENDER Temperature 36.3 ??C (97.3 ??F) 11/09/2023 8:15 AM CS T Respiratory Rate 20 11/09/2023 8:15 AM HOT FRAME TENDER Oxygen Saturation 99% 11/09/2023 8:15 AM HOT FRAME TENDER Inhaled Oxygen Concentration - - Weight 121.1 kg (267 lb) 11/09/2023 8:15 AM HOT FRAME TENDER Height 167.6 cm (5' 5.98 ) 11/09/2023 8:15 AM CS T Body Mass Index 43.12 11/09/2023 8:15 AM HOT FRAME TENDER documented in this encounter Ordered Prescriptions Prescription Sig Dispense Quantity Refills Last Filled Start Date End Date dextroamphetamine- amphetamine XR (ADDERALL XR) 10 mg 24 hr capsule Take 1 capsule (10 mg total) by mouth every morning 30 capsule 11/09/2023 4 dextroamphetamine- amphetamine (ADDERALL) 10 mg tablet Take 1 tablet (10 mg total) by mouth daily 30 tablet 11/09/2023 4 documented in this encounter Progress Notes * Maggi Kim, BEKAH - 11/09/2023 8:30 AM CST Images from the original note were not included. Patient ID: Leti Soto is a 32 y.o. female. Chief Complaint. No chief complaint on file. HPI. Patient is a 32 y.o. female HPI Patient presents in office for ADHD follow up. Currently taking Adderall XR 10 mg daily. Patient has been on Vyvanse in the past with good results, but her insurance no longer covers the medication. 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 The last 5 to 6 hours of her workday, she having difficulty staying on top of her works, states the mornings are manageable and run smooth. Past Medical History: Diagnosis Date Anxiety Depression Obesity Past Surgical History: Procedure Laterality Date CHOLECYSTECTOMY 04/2009 LASIK 11/2015 SLEEVE GASTROPLASTY 12/14/2022 Allergies Allergen Reactions Penicillins Rash Tramadol Other (See comments) Shaky, increased heart rate, sweating. Shaky, increased heart rate, sweating. Social History Tobacco Use Smoking status: Never Smokeless tobacco: Never Substance and Sexual Activity Drug use: Yes Frequency: 1.0 times per week Types: Marijuana Sexual activity: None Alcohol Use: Not At Risk (06/08/2023) AUDIT-C Frequency of Alcohol Consumption: Monthly or less Average Number of Drinks: 1 or 2 Frequency of Binge Drinking: Never Family History Problem Relation Age of Onset Osteoporosis Mother Hypertension Mother Obesity Mother Hypertension Father Diabetes type II Father Obesity Father Heart disease Father Current Medications: Outpatient Encounter Medications as of 11/09/2023 Medication Sig Dispense Refill buPROPion XL (WELLBUTRIN XL) 300 mg 24 hr tablet Take 1 tablet (300 mg total) by mouth certified hyperbaric technologist before breakfast busPIRone (BUSPAR) 5 mg tablet TAKE 1 TABLET(5 MG) BY MOUTH THREE TIMES DAILY 90 tablet 5 FLUoxetine (PROzac) 20 mg capsule Take 3 capsules (60 mg total) by mouth daily oxymetazoline (AFRIN) 0.05 % nasal spray Administer 2 sprays into each nostril 2 (two) times a day [address] (PROTONIX) 40 mg EC tablet Take 1 tablet (40 mg total) by mouth 2 (two) times a day [DISCONTINUED] dextroamphetamine-amphetamine XR (ADDERALL XR) 10 mg 24 hr capsule Take 1 capsule (10 mg total) by mouth every morning 30 capsule 0 dextroamphetamine-amphetamine (ADDERALL) 10 mg tablet Take 1 tablet (10 mg total) by mouth daily 30tablet 0 dextroamphetamine-amphetamine XR (ADDERALL XR) 10 mg 24 hr capsule Take 1 capsule (10 mg total) by mouth every morning 30 capsule 0 [DISCONTINUED] levonorgestreL (MIRENA) IUD by intrauterine route as directed No facility-administered encounter medications on file as of 11/09/2023. Review of Systems: Review of Systems Constitutional: Negative for chills and fever. Eyes: Negative for pain and visual disturbance. Respiratory: Negative for chest tightness and shortness of breath. Cardiovascular: Negative for chest pain and palpitations. Gastrointestinal: Negative for abdominal pain, constipation, diarrhea, nausea and vomiting. Endocrine: Negative for cold intolerance and heat intolerance. Neurological: Negative for dizziness, syncope, light-headedness and headaches. Psychiatric/Behavioral: Positive for decreased concentration. Negative for dysphoric mood and sleepdisturbance. The patient is not nervous/anxious and is not hyperactive. BP 125/90 (BP Location: Right arm, Patient Position: Sitting) Pulse 80 Temp 36.3 ??C (97.3 ??F)(Temporal) Resp 20 Ht 167.6 cm (5' 5.98 ) Wt 121.1 kg (267 lb) SpO2 99% BMI 43.12 kg/m?? Physical Exam: Physical Exam Constitutional: Appearance: Normal appearance. HENT: Head: Normocephalic. Eyes: Extraocular Movements: Extraocular movements intact. Conjunctiva/sclera: Conjunctivae normal. Neck: Vascular: No carotid bruit. Cardiovascular: Rate and Rhythm: Normal rate and regular rhythm. Pulses: Normal pulses. Heart sounds: Normal heart sounds, S1 normal and S2 normal. No murmur heard. Pulmonary: Effort: Pulmonary effort is normal. Breath sounds: Normal breath sounds. No wheezing. Musculoskeletal: General: Normal range of motion. Cervical back: Normal range of motion and neck supple. Skin: General: Skin is warm and dry. Findings: No erythema. Neurological: General: No focal deficit present. Mental Status: She is alert and oriented to person, place, and time. Motor: No weakness. Gait: Gait normal. Psychiatric: Attention and Perception: Attention normal. Mood and Affect: Mood normal. Speech: Speech normal. Behavior: Behavior normal. Thought Content: Thought content normal. Assessment & Plan: Diagnoses and all orders for this visit: RONA (generalized anxiety disorder) (Primary) Assessment & Plan: Chronic, controlled. Patient to continue on Fluoxetine 60 mg daily, Wellbutrin 300 mg daily, Buspar5 mg TID PRN, and completing weekly counseling sessions. Follow up in 6 months. Attention deficit hyperactivity disorder (ADHD), predominantly inattentive type Assessment & Plan: Chronic, patient to continue on Adderall XR 10 mg daily, patient prescribed an additional 10 mg forAdderall immediate release, she is to take this 7 hours into her 13 hour work day. Patient to follow up in 6 months. Morbid obesity with BMI of 40.0-44.9, adult ([facility]) Assessment & Plan: Chronic, improving patient has undergone bariatric surgery. Patient to continue on current diet anddaily exercise routine. Follow up in 6 months. Other orders - dextroamphetamine-amphetamine (ADDERALL) 10 mg tablet; Take 1 tablet (10 mg total) by mouth daily - dextroamphetamine-amphetamine XR (ADDERALL XR) 10 mg 24 hr capsule; Take 1 capsule (10 mg total) by mouth every morning Maggi Kim NP FRAME TENDER documented in this encounter Miscellaneous Notes * Assessment & Plan Note - Maggi Kim NP - 11/09/2023 8:54 AM HOT FRAME TENDER Associated Problem(s): Attention deficit hyperactivity disorder (ADHD), predominantly inattentive type Chronic, patient to continue on Adderall XR 10 mg daily, patient prescribed an additional 10 mg forAdderall immediate release, she is to take this 7 hours into her 13 hour work day. Patient to follow up in 6 months. FRAME TENDER * Assessment & Plan Note - Maggi Kim NP - 11/09/2023 8:52 AM HOT FRAME TENDER Associated Problem(s): RONA (generalized anxiety disorder) Chronic, controlled. Patient to continue on Fluoxetine 60 mg daily, Wellbutrin 300 mg daily, Buspar5 mg TID PRN, and completing weekly counseling sessions. Follow up in 6 months. FRAME TENDER * Assessment & Plan Note - Maggi Kim NP - 11/09/2023 8:52 AM HOT FRAME TENDER Associated Problem(s): Morbid obesity with BMI of 40.0-44.9, adult (HCC) (Resolved 05/03/2024) Chronic, improving patient has undergone bariatric surgery. Patient to continue on current diet anddaily exercise routine. Follow up in 6 months. FRAME TENDER documented in this encounter Plan of Treatment Not on file documented as of this encounter Visit Diagnoses Diagnosis RONA (generalized anxiety disorder)- Primary Generalized anxiety disorder Attention deficit hyperactivity disorder (ADHD), predominantly inattentive type Morbid obesity with BMI of 40.0-44.9, adult (HCC) documented in this encounter Discontinued Medications Medication Sig Discontinue Reason Start Date End Da te levonorgestreL (MIRENA) IUD by intrauterine route as directed 11/09/2023 dextroamphetamine-amp hetamine XR (ADDERALL XR) 10 mg 24 hr capsule Take 1 capsule (10 mg total) by mouth every morning Reorder 08/28/2023 11/09/2023 documented as of this encounter Care Teams Business Banking Sales Assistant Relationship Specialty Start Date End Date Maggi Kim NP [address] [place] [address] PCP - General Nurse Practitioner 06/08/23 documented as of this encounter
--- OUTSIDE RECORDS SUMMARY | 2024-10-07 02:53 | XMS_ITS | Encounter Summary ---
Author Organization [facility] Healthcare Address [address] [place] [address] Care Team Providers Care Molding Engineer Name Role Phone Maggi Kim MANAGER OF CORPORATE COMMUNICATIONS Primary Care Provider [phone] Encounter Details Date Type Department Care Team ([facility] st Contact Info) Description 08/28/2023 Orders Only [facility] Medical Group Primary Care [address] [address] Maggi Kim, MANAGER OF CORPORATE COMMUNICATIONS [address] [address] Social History Tobacco Use Types Packs/Day Years Used Date Smoking Tobacco: Never Smokeless Tobacco: Never AUDIT-C Answer Date Recorded Q1: How often [...] staff should administer the PHQ-9) 1 06/08/2023 Comments No Sex and Gender Information Value Date Recorded Sex Assigned at Not on file Legal Sex Female 7:03 PM POWDER CARRIER Gender Identity Not on file Sexual Orientation Not on file documented as of this encounter Ordered Prescriptions Prescription Sig Dispense Quantity Refills Last Filled Start Date End Date dextroamphetamine- amphetamine XR (ADDERALL XR) 10 mg 24 hr capsule Take 1 capsule (10 mg total) by mouth every morning 30 capsule 08/28/2023 4 documented in this encounter Plan of Treatment Not on file documented as of this encounter Visit Diagnoses Not on filedocumented in this encounter Discontinued Medications Medication Sig Discontinue Reason Start Date End Da te lisdexamfetamine (VYVANSE) 30 mg capsule Take 1 capsule (30 mg total) by mouth every morning Cost of medication 08/16/2023 08/28/2023 documented as of this encounter Care Teams Molding Engineer Relationship Specialty Start Date End Date Maggi Kim NP [address] [place] [address] PCP - General Nurse Practitioner 06/08/23 documented as of this encounter
--- OUTSIDE RECORDS SUMMARY | 2024-10-07 02:53 | XMS_ITS | Clinical Summary ---
Author Organization [facility] Address [address] [place] [address] Care Team Providers Care Graphotype Operator Name Role Phone Maggi Kim NP Primary Care Provider Allergies Active Allergy Reactions Criticality Noted Date Comments Penicillins Rash Medium 04/04/2014 Tramadol Other (See comments) Medium 03/22/2017 Shaky, increased heart rate, sweating. Shaky, increased heart rate, sweating. Medications FLUoxetine (PROzac) 20 mg capsule Take 3 capsules (60 mg total) by mouth daily 0 Active oxymetazoline (AFRIN) 0.05 % nasal spray Administer 2 sprays into each nostril 2 (two) times a day 30 mL 1 3 Active busPIRone (BUSPAR) 5 mg tablet TAKE 1 TABLET(5 MG) BY MOUTH THREE TIMES DAILY 90 tablet [address] (PROTONIX) 40 mg EC tablet Take 1 tablet (40 mg total) by mouth 2 (two) times a day 3 Active dextroamphetami ne-amphetamine XR (ADDERALL XR) 10 mg 24 hr capsule Take 1 capsule (10 mg total) by mouth every morning 30 capsule 4 Active dextroamphetami ne-amphetamine (ADDERALL) 10 mg tablet Take 1 tablet (10 mg total) by mouth daily 30 tablet 4 Active Active Problems Problem Noted Date Diagnosed Date Morbid obesity with BMI of 45.0-49.9, adult 05/2024 Assessment & Plan (05/03/2024 9:35 AM CDT): Chronic, patient has undergone bariatric surgery, currently 18 weeks . Patient to continue on current diet and daily exercise routine. Follow up in 6 months. Annual physical exam 05/03/2024 Assessment & Plan (05/03/2024 9:37 AM CDT): CBC, CMP, lipid panel ordered Patient to sign release form to obtain recent Pap completed by Dr. Mar AERIAL PLANTING AND CULTIVATION MANAGER. Vaccinations: UTD Repeat wellness exam in one year. Attention deficit hyperactiv ity disorder (ADHD), predominantly inattentive type 08/16/2023 Assessment & Plan (05/03/2024 9:34 AM CDT): Chronic, patient to remain off Adderall during her current . Patient to follow up in 6 months to reassess her symptoms. Assessment & Plan (01/17/2024 8:51 AM CDT): Chronic, controlled. Patient to continue on Adderall XR 10 mg daily and additional 10 mg for Adderall immediate release to be used on 12 hour work days. Patient to follow up in 6 months. Assessment & Plan (11/09/2023 8:54 AM PROCESS CONTROL MANAGER): Chronic, patient to continue on Adderall XR 10 mg daily, patient prescribed an additional 10 mg for Adderall immediate release, she is to take this 7 hours into her 13 hour work day. Patient to follow up in 6 months. Assessment & Plan (08/16/2023 10:39 AM PROCESS CONTROL MANAGER): Patient prescribed Vyvanse 30 mg daily. Patient provided with education on medication administration and potential side effects. Patient to continue following therapist weekly. Follow up in one month. RONA (generalized anxiety disorder) 06/08/2023 Assessment & Plan (05/03/2024 9:36 AM CDT): Chronic, well controlled. Patient to continue on Fluoxetine 60 mg daily and weekly counseling sessions. Patient to remain off Buspar 5 mg during . Follow up in 6 months. Assessment & Plan (01/17/2024 8:50 AM CDT): Chronic, well controlled. Patient to continue on Fluoxetine 60 mg daily, Buspar 5 mg TID PRN, and weekly counseling sessions. Patient to continue weaning off Wellbutrin decrease to 150 mg every other day for one week and then discontinue medication. Follow up in 6 months. Assessment & Plan (11/09/2023 8:52 AM PROCESS CONTROL MANAGER): Chronic, controlled. Patient to continue on Fluoxetine 60 mg daily, Wellbutrin 300 mg daily, Buspar 5 mg TID PRN, and completing weekly counseling sessions. Follow up in 6 months. Assessment & Plan (08/16/2023 10:39 AM PROCESS CONTROL MANAGER): Chronic, controlled. Patient to continue on Fluoxetine 60 mg daily, Wellbutrin 300 mg daily, Buspar 5 mg TID PRN, and completing weekly counseling sessions. Follow up in 6 months. Assessment & Plan (07/24/2023 10:36 AM CDT): Chronic, improving. Patient to continue on Fluoxetine 60 mg daily, Wellbutrin 300 mg daily, Buspar 5 mg TID PRN, and completing weekly counseling sessions. Follow up in 6 months. Assessment & Plan (06/08/2023 5:19 PM CDT): Chronic, worsening. Patient to continue on Fluoxetine 60 mg daily, Wellbutrin 300 mg daily, and weekly counseling. Patient prescribed Buspar 5 mg TID PRN. Patient provided with education on medication administration and potential side effects. Patient to follow up in one month. History of gastric restrictive surgery 3 Frequent nosebleeds 06/08/2023 Assessment & Plan (06/08/2023 5:17 PM CDT): Patient prescribed Afrin, use during active nosebleed. Patient to begin saline nasal spray and daily OTC oral antihistamine. Patient to call office if nosebleeds continue with medication use. Resolved Problems Problem Noted Date Diagnosed Date Resolved Date Morbid obesity with BMI of 40.0-44.9, adult 07/24/2023 05/03/2024 Assessment & Plan (01/17/2024 8:49 AM CDT): Chronic, improving patient has undergone bariatric surgery. Patient to continue on current diet and daily exercise routine. Follow up in 6 months. Assessment & Plan (11/09/2023 8:52 AM PROCESS CONTROL MANAGER): Chronic, improving patient has undergone bariatric surgery. Patient to continue on current diet and daily exercise routine. Follow up in 6 months. Assessment & Plan (08/16/2023 10:40 AM PROCESS CONTROL MANAGER): Chronic, improving patient has undergone bariatric surgery. Patient to continue on current diet and daily exercise routine. Follow up in 6 months. Assessment & Plan (07/24/2023 10:37 AM CDT): Chronic, improving patient has lost 11 lbs since last office visit. Patient to continue on current diet and daily exercise. Follow up in 6 months. Morbid obesity with BMI of 45.0-49.9, adult 06/08/2023 07/24/2023 Assessment & Plan (06/08/2023 5:16 PM CDT): Chronic, improving. Following with [facility] B[facility]ric Clinic. Underwent gastric sleeve surgery in 11/2022. Immunizations Name Administration Dates Next Due DT 12/31/2004 DTP 06/03/1995, 2,08/10/1991,05/15,02/27/1991 HPV, Quadrivalent 08/02/2016,02/19/2016,01/12/20 16 HPV, Unspecified 08/02/2016,02/19/2016, 6 Hep A, Unspecified 06/17/2013 Hep B Vaccine 04/29/1996,07/13/1995,05/30/1995 HiB 05/26/1992, 1,05/15/1991,02/27 Hib (HbOC) 05/26/1992, 1,05/15/1991,02/27 Hib (PRP-OMP) 05/26/1992, 1,05/15/1991,02/27 Influenza, Quadrivalent, Spl it, Preservative Free, Intramuscular 06/08/2023,07/18/2019,06/07/2017 Influenza, Split 06/17/2013 Influenza, Trivalent, IM (MDV) 05/11/2014 Influenza, Unspecified 06/27/2022,2018,06/25/2018,06/07,06/25/2016,06/17/2013 MMR 06/17/2013,06/26/1996,05/26/1992 MMRV 06/26/1996,05/26/1992 Meningococcal ACWY, Unspecified 06/17/2013 OPV 05/26/1992,05/15/1991,02/27/1991 OPV, Unspecified 06/03/1995, 2,05/15/1991,02/27 Tdap 03/29/2019,08/13/2015 Varicella 07/08/2013 Surgical History Surgery Date Site/Laterality Comments SLEEVE GASTROPLASTY 12/14/2022 LASIK 11/24/2015 - 12/24/2015 CHOLECYSTECTOMY 04/25/2009 - 05/25/2009 Medical History Medical History Date Comments Depression Anxiety Obesity Family History Medical History Relation Name Comments Diabetes type II Father Heart disease Father Hypertension Father Obesity Father Hypertension Mother Obesity Mother Osteoporosis Mother Relation Name Status Comments Father Alive Mother Alive Social History Tobacco Use Types Packs/Day Years [...] on file Legal Sex Female 7:03 PM PROCESS CONTROL MANAGER Gender Identity Not on file Sexual Orientation Not on file Obstetrics History Last Filed Vital Signs Vital Sign Reading Time Taken Comments Blood Pressure 116/66 05/03/2024 7:55 AM CDT Pulse 71 05/03/2024 7:55 AM CDT Temperature 36.2 ??C (97.1 ??F) 05/03/2024 7:55 AM CD T Respiratory Rate 18 05/03/2024 7:55 AM CDT Oxygen Saturation 98% 05/03/2024 7:55 AM CDT Inhaled Oxygen Concentration - - Weight 137.3 kg (302 lb 9.6 oz) 05/03/2024 7:55 AM CDT Height 167.6 cm (5' 5.98 ) 05/03/2024 7:55 AM CD T Body Mass Index 48.87 05/03/2024 7:55 AM CDT Plan of Treatment Health Maintenance Due Date Last Done Comments Cervical Cancer Screening 1990 Hepatitis C Screening 1990 Covid-19 Vaccine ( season) 2024 05/01/2021, 09/20/2020 Influenza Vaccine (#1) 2024 , 06/27/2022, 07/18/2019, Additional history exists Depression Screening 06/08/2024 06/08/2023, 06/08/20 23 Regular Well Visit/Exam 18-64 05/03/2025 05/03/2024 DTaP/Tdap/Td Vaccine (9 - Td or Tdap) 03/29/2029 03/29/2019, 08/13/2015, 12/31/2004, Additional history exists Varicella Vaccines Completed 07/08/2013, 1 , 05/26/1992 HPV Vaccines Completed 08/02/2016, 1104/2016, 02/19/2016, Additional history exists Pneumococcal vaccine <65 Aged Out No longer eligible based on patient's age to complete this topic Insurance [facility] [employer] Address: [address] [place] [address] [employer] Address: [address] [place] [address] Care Teams Graphotype Operator Relationship Specialty Start Date End Date Maggi Kim NP [address] [place] [id number] PCP - General Nurse Practitioner 06/08/23
--- OUTSIDE RECORDS SUMMARY | 2024-10-07 02:53 | XMS_ITS | Encounter Summary ---
Author Organization [facility] Healthcare Address [address] [place] [address] Care Team Providers Care Spring Encaser Name Role Phone Maggi Kim GROUP TEACHER Primary Care Provider [phone] Reason for Visit * Reason Comments Follow-up Encounter Details Date Type Department Care Team (Latest Contact Info) Description 01/17/2024 8:30 AM CDT Office Visit [facility] Medical Group Primary Care [address] [address] Maggi Kim, GROUP TEACHER [facility] [address] RONA (generalized anxiety disorder) (Primary Dx); Morbid obesity with BMI of 40.0-44.9, adult (HCC); Attention deficit hyperactivity disorder (ADHD), predominantly inattentive type Social History Tobacco Use Types Packs/Day Years [...] on file Legal Sex 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 Gender Identity Not on file Sexual Orientation Not on file documented as of this encounter Last Filed Vital Signs Vital Sign Reading Time Taken Comments Blood Pressure 122/74 01/17/2024 8:16 AM CDT Pulse 79 01/17/2024 8:16 AM CDT Temperature 36.3 ??C (97.4 ??F) 01/17/2024 8:16 AM CD T Respiratory Rate 18 01/17/2024 8:16 AM CDT Oxygen Saturation 98% 01/17/2024 8:16 AM CDT Inhaled Oxygen Concentration - - Weight 121.7 kg (268 lb 3.2 oz) 01/17/2024 8:16 AM CDT Height 167.6 cm (5' 5.98 ) 01/17/2024 8:16 AM CD T Body Mass Index 43.31 01/17/2024 8:16 AM CDT documented in this encounter Progress Notes * Maggi Kim, BEKAH - 01/17/2024 8:30 AM CDT Images from the original note were not included. Patient ID: Leti Stoo is a 33 y.o. female. Chief Complaint. Chief Complaint Patient presents with Follow-up HPI. Patient is a 33 y.o. female HPI Patient presents in office for follow up on ADHD and anxiety. Two months ago second dose of Adderall immediately release was added for days when she was working 12 hour shifts since the Adderall XR was not lasting her whole work day. Reports the addition dose of Adderall has been working well, she is able to focus through her 12 hours shifts. Denies any heart palpations or difficulty sleeping with increased dosage. Patient has been weaning off Wellbutrin for the past 2 weeks currently taking 150 mg daily. States her anxiety has been well controlled with the lower dose of Wellbutrin and wants to continue weaning off the medication. She is still taking fluoxetine daily and using Buspar 5 mg afew times per month. Past Medical History: Diagnosis Date Anxiety Depression [...] Current Medications: Outpatient Encounter Medications as of 01/17/2024 Medication Sig Dispense Refill busPIRone (BUSPAR) 5 mg tablet TAKE 1 TABLET(5 MG) BY MOUTH THREE TIMES DAILY 90 tablet 5 dextroamphetamine-amphetamine (ADDERALL) 10 mg tablet Take 1 tablet (10 mg total) by mouth daily 30tablet 0 dextroamphetamine-amphetamine XR (ADDERALL XR) 10 mg 24 hr capsule Take 1 capsule (10 mg total) by mouth every morning 30 capsule 0 FLUoxetine (PROzac) 20 mg capsule Take 3 capsules (60 mg total) by mouth daily oxymetazoline (AFRIN) 0.05 % nasal spray Administer 2 sprays into each nostril 2 (two) times a day 30 [address] (PROTONIX) 40 mg EC tablet Take 1 tablet (40 mg total) by mouth 2 (two) times a day [DISCONTINUED] buPROPion XL (WELLBUTRIN XL) 300 mg 24 hr tablet Take 1 tablet (300 mg total) by mouth calender feeder before breakfast No facility-administered encounter medications on file as of 01/17/2024. Review of Systems: Review of Systems Eyes: Negative for pain and visual disturbance. Respiratory: Negative for chest tightness and shortness of breath. Cardiovascular: Negative for chest pain and palpitations. Gastrointestinal: Negative for nausea and vomiting. Neurological: Negative for dizziness, weakness and light-headedness. Psychiatric/Behavioral: Negative for decreased concentration, dysphoric mood and sleep disturbance.The patient is not nervous/anxious and is not hyperactive. BP 122/74 (BP Location: Right arm, Patient Position: Sitting) Pulse 79 Temp 36.3 ??C (97.4 ??F)(Temporal) Resp 18 Ht 167.6 cm (5' 5.98 ) Wt 121.7 kg (268 lb 3.2 oz) SpO2 98% BMI 43.31 kg/m?? Physical Exam: Physical Exam Constitutional: Appearance: [...] Skin: General: Skin is warm and dry. Neurological: General: No focal deficit present. Mental [...] anxiety disorder) (Primary) Assessment & Plan: Chronic, well controlled. Patient to continue on Fluoxetine 60 mg daily, Buspar 5 mg TID PRN, and weekly counseling sessions. Patient to continue weaning off Wellbutrin decrease to 150 mg every otherday for one week and then discontinue medication. Follow up in 6 months. Morbid obesity with BMI of 40.0-44.9, adult (HCC) Assessment & Plan: Chronic, improving patient has undergone bariatric surgery. Patient to continue on current diet anddaily exercise routine. Follow up in 6 months. Attention deficit hyperactivity disorder (ADHD), predominantly inattentive type Assessment & Plan: Chronic, controlled. Patient to continue on Adderall XR 10 mg daily and additional 10 mg for Adderall immediate release to be used on 12 hour work days. Patient to follow up in 6 months. Maggi Kim NP documented in this encounter Miscellaneous Notes * Assessment & Plan Note - Maggi Kim NP - 01/17/2024 8:51 AM CDT Associated Problem(s): Attention deficit hyperactivity disorder (ADHD), predominantly inattentive type Chronic, controlled. Patient to continue on Adderall XR 10 mg daily and additional 10 mg for Adderall immediate release to be used on 12 hour work days. Patient to follow up in 6 months. * Assessment & Plan Note - Maggi Kim NP - 01/17/2024 8:50 AM CDT Associated Problem(s): RONA (generalized anxiety disorder) Chronic, well controlled. Patient to continue on Fluoxetine 60 mg daily, Buspar 5 mg TID PRN, and weekly counseling sessions. Patient to continue weaning off Wellbutrin decrease to 150 mg every otherday for one week and then discontinue medication. Follow up in 6 months. * Assessment & Plan Note - Maggi Kim NP - 01/17/2024 8:49 AM CDT Associated Problem(s): Morbid obesity with BMI of 40.0-44.9, adult (HCC) (Resolved 05/03/2024) Chronic, improving patient has undergone bariatric surgery. Patient to continue on current diet anddaily exercise routine. Follow up in 6 months. documented in this encounter Plan of Treatment Not on file documented as of this encounter Visit Diagnoses Diagnosis RONA (generalized anxiety disorder)- Primary Generalized anxiety disorder Morbid obesity with BMI of 40.0-44.9, adult (HCC) Attention deficit hyperactivity disorder (ADHD), predominantly inattentive type documented in this encounter Discontinued Medications Medication Sig Discontinue Reason Start Date End Da te buPROPion XL (WELLBUTRIN XL) 300 mg 24 hr tablet Take 1 tablet (300 mg total) by mouth calender feeder before breakfast Other 02/26/2020 01/17/2024 documented as of this encounter Care Teams Spring Encaser Relationship Specialty Start Date End Date Maggi Kim NP [address] [place] [id number] PCP - General Nurse Practitioner 06/08/23 documented as of this encounter
--- OUTSIDE RECORDS SUMMARY | 2024-10-07 02:53 | XMS_ITS | Referral Summary ---
Author Organization [facility] Address [address] [place] [address] Care Team Providers Care Police Magistrate Name Role Phone Maggi Kim NP Primary Care Provider [phone] Allergies Active Allergy Reactions Criticality Noted Date [...] obtain recent Pap completed by Dr. Mar BRIM ROUNDER. Vaccinations: UTD Repeat wellness exam in one [...] months. Assessment & Plan (11/09/2023 8:54 AM CONTINUOUS IMPROVEMENT MANAGER): Chronic, patient to continue on Adderall XR 10 mg daily, patient prescribed an additional 10 mg for Adderall immediate release, she is to take this 7 hours into her 13 hour work day. Patient to follow up in 6 months. Assessment & Plan (08/16/2023 10:39 AM CONTINUOUS IMPROVEMENT MANAGER): Patient prescribed Vyvanse 30 mg daily. [...] months. Assessment & Plan (11/09/2023 8:52 AM CONTINUOUS IMPROVEMENT MANAGER): Chronic, controlled. Patient to continue on Fluoxetine 60 mg daily, Wellbutrin 300 mg daily, Buspar 5 mg TID PRN, and completing weekly counseling sessions. Follow up in 6 months. Assessment & Plan (08/16/2023 10:39 AM CONTINUOUS IMPROVEMENT MANAGER): Chronic, controlled. Patient to continue on [...] months. Assessment & Plan (11/09/2023 8:52 AM CONTINUOUS IMPROVEMENT MANAGER): Chronic, improving patient has undergone bariatric surgery. Patient to continue on current diet and daily exercise routine. Follow up in 6 months. Assessment & Plan (08/16/2023 10:40 AM CONTINUOUS IMPROVEMENT MANAGER): Chronic, improving patient has undergone bariatric [...] 5:16 PM CDT): Chronic, improving. Following with [facility] Bariatric Clinic. Underwent gastric sleeve surgery in [...] Unspecified 06/03/1995, 2,05/15/1991,02/27 Tdap 03/29/2019,08/13/2015 Varicella 07/08/2013 Social History Tobacco Use Types Packs/Day Years [...] on file Legal Sex Female 7:03 PM CONTINUOUS IMPROVEMENT MANAGER Gender Identity Not on file Sexual Orientation Not on file Last Filed Vital Signs Vital Sign Reading [...] 05/03/2024 7:55 AM CDT Plan of Treatment Not on file Insurance [employer] Care Teams Police Magistrate Relationship Specialty Start Date End Date Maggi Kim NP [address] [place] [address] PCP - General Nurse Practitioner 06/08/23
--- OUTSIDE RECORDS SUMMARY | 2024-10-07 02:53 | XMS_ITS | Encounter Summary ---
Author Organization [facility] Healthcare Address [address] [place] [address] Care Team Providers Care Educational Guidance Counselor Name Role Phone Maggi Kim DIRECTOR OF RECRUITMENT AND ADMISSIONS Primary Care Provider [phone] Reason for Visit * Reason Comments Preventative Care Encounter Details Date Type Department Care Team (Latest Contact Info) Description 05/03/2024 8:30 AM CDT Office Visit [facility] Primary Care [address] [address] Maggi Kim, DIRECTOR OF RECRUITMENT AND ADMISSIONS [facility] [address] Annual physical exam (Primary Dx); Attention deficit hyperactivity disorder (ADHD), predominantly inattentive type; RONA (generalized anxiety disorder); Morbid obesity with BMI of 45.0-49.9, adult (HCC) Social History Tobacco Use Types [...] on file 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 female. Chief Complaint Preventative Care HPI Leti Soto is a 33 y.o. year old female who presents for annual physical exam. Patient is currently 18 weeks , following with Dr. Mar SERVICE AIDE. She has stopped Adderall use during her , has continued on fluoxetine. Past Medical History: Diagnosis Date Anxiety Depression Obesity Past Surgical History: Procedure Laterality Date CHOLECYSTECTOMY 04/2009 LASIK 11/2015 SLEEVE GASTROPLASTY 12/14/2022 Allergies Allergen Reactions Penicillins Rash Tramadol Other (See comments) Shaky, increased heart rate, sweating. Shaky, increased heart rate, sweating. Family History Problem Relation Age of Onset Osteoporosis Mother Hypertension Mother Obesity Mother Hypertension Father Diabetes type II Father Obesity Father Heart disease Father Social History Tobacco Use Smoking status: Never Smokeless tobacco: Never Substance and Sexual Activity Drug use: Yes Frequency: 1.0 times per week Types: Marijuana Sexual activity: None Alcohol Use: Not At Risk (06/08/2023) AUDIT-C Frequency of Alcohol Consumption: Monthly or less Average Number of Drinks: 1 or 2 Frequency of Binge Drinking: Never Current Outpatient Medications: busPIRone (BUSPAR) 5 mg tablet, TAKE 1 TABLET(5 MG) BY MOUTH THREE TIMES DAILY, Disp: 90 tablet, Rfl: 5 dextroamphetamine-amphetamine (ADDERALL) 10 mg tablet, Take 1 tablet (10 mg total) by mouth daily, Disp: 30 tablet, Rfl: 0 dextroamphetamine-amphetamine XR (ADDERALL XR) 10 mg 24 hr capsule, Take 1 capsule (10 mg total) bymouth every morning, Disp: 30 capsule, Rfl: 0 FLUoxetine (PROzac) 20 mg capsule, Take 3 capsules (60 mg total) by mouth daily, Disp: , Rfl: oxymetazoline (AFRIN) 0.05 % nasal spray, Administer 2 sprays into each nostril 2 (two) times a day, Disp: 30 mL, Rfl: [address] (PROTONIX) 40 mg EC tablet, Take 1 tablet (40 mg total) by mouth 2 (two) times a day, Disp: , Rfl: Review of Systems Constitutional: Negative for chills and fever. Eyes: Negative for pain and visual disturbance. Respiratory: Negative for chest tightness, shortness of breath and wheezing. Cardiovascular: Negative for chest pain and palpitations. Gastrointestinal: Negative for abdominal pain, constipation, diarrhea, nausea and vomiting. Genitourinary: Negative for difficulty urinating, flank pain, pelvic pain, urgency, vaginal bleeding, vaginal discharge and vaginal pain. Musculoskeletal: Negative for arthralgias, gait problem and myalgias. Neurological: Negative for dizziness, syncope, weakness, light-headedness, numbness and headaches. Psychiatric/Behavioral: Negative for confusion, dysphoric mood and sleep disturbance. The patient is not nervous/anxious. BP 116/66 (BP Location: Left arm, Patient Position: Sitting) Pulse 71 Temp 36.2 ??C (97.1 ??F) (Temporal) Resp 18 Ht 167.6 cm (5' 5.98 ) Wt (!) 137.3 kg (302 lb 9.6 oz) SpO2 98% BMI 48.87 kg/m?? Physical Exam Constitutional: Appearance: Normal appearance. HENT: Head: Normocephalic. Right Ear: Tympanic membrane, ear canal and external ear normal. Left Ear: Tympanic membrane, ear canal and external ear normal. Nose: Nose normal. No congestion. Mouth/Throat: Mouth: Mucous membranes are moist. Pharynx: Oropharynx is clear. No oropharyngeal exudate or posterior oropharyngeal erythema. Eyes: Extraocular Movements: Extraocular movements intact. Conjunctiva/sclera: Conjunctivae normal. Neck: Vascular: No carotid bruit. Cardiovascular: Rate and Rhythm: Normal rate and regular rhythm. Pulses: Normal pulses. Heart sounds: Normal heart sounds, S1 normal and S2 normal. No murmur heard. Pulmonary: Effort: Pulmonary effort is normal. Breath sounds: Normal breath sounds. No wheezing, rhonchi or rales. Abdominal: General: Bowel sounds are normal. Palpations: Abdomen is soft. Tenderness: There is no abdominal tenderness. There is no guarding. Musculoskeletal: General: Normal range of motion. Cervical back: Normal range of motion and neck supple. Right lower leg: No edema. Left lower leg: No edema. Lymphadenopathy: Cervical: No cervical adenopathy. Right cervical: No superficial, deep or posterior cervical adenopathy. Left cervical: No superficial, deep or posterior cervical adenopathy. Skin: General: Skin is warm and dry. Findings: No erythema. Neurological: General: No focal deficit present. Mental Status: She is alert and oriented to person, place, and time. Motor: No weakness. Gait: Gait normal. Psychiatric: Attention and Perception: Attention normal. Mood and Affect: Mood normal. Speech: Speech normal. Behavior: Behavior normal. Thought Content: Thought content normal. Assessment/Plan Diagnoses and all orders for this visit: Annual physical exam (Primary) Assessment & Plan: CBC, CMP, lipid panel ordered Patient to sign release form to obtain recent Pap completed by Dr. Mar SERVICE AIDE. Vaccinations: UTD Repeat wellness exam in one year. Orders: - CBC with auto differential; Future - Comprehensive metabolic panel; Future - Lipid panel; Future Attention deficit hyperactivity disorder (ADHD), predominantly inattentive type Assessment & Plan: Chronic, patient to remain off Adderall during her current . Patient to follow up in 6 months to reassess her symptoms. RONA (generalized anxiety disorder) Assessment & Plan: Chronic, well controlled. Patient to continue on Fluoxetine 60 mg daily and weekly counseling sessions. Patient to remain off Buspar 5 mg during . Follow up in 6 months. Morbid obesity with BMI of 45.0-49.9, adult (HCC) Assessment & Plan: Chronic, patient has undergone bariatric surgery, currently 18 weeks . Patient to continue on current diet and daily exercise routine. Follow up in 6 months. Body mass index is 48.87 kg/m??. Orders Placed This Encounter CBC with auto differential Standing Status: Future Number of Occurrences: 1 Standing Expiration Date: 05/03/2025 Comprehensive metabolic panel Standing Status: Future Number of Occurrences: 1 Standing Expiration Date: 05/03/2025 Lipid panel Standing Status: Future Number of Occurrences: 1 Standing Expiration Date: 05/03/2025 documented in this encounter Miscellaneous Notes * Assessment & Plan Note - Maggi Kim NP - 05/03/2024 9:37 AM CDT Associated Problem(s): Annual physical exam CBC, CMP, lipid panel ordered Patient to sign release form to obtain recent Pap completed by Dr. Mar SERVICE AIDE. Vaccinations: UTD Repeat wellness exam in one year. * Assessment & Plan Note - Maggi Kim NP - 05/03/2024 9:36 AM CDT Associated Problem(s): RONA (generalized anxiety disorder) Chronic, well controlled. Patient to continue on Fluoxetine 60 mg daily and weekly counseling sessions. Patient to remain off Buspar 5 mg during . Follow up in 6 months. * Assessment & Plan Note - Maggi Kim NP - 05/03/2024 9:35 AM CDT Associated Problem(s): Morbid obesity with BMI of 45.0-49.9, adult (HCC) Chronic, patient has undergone bariatric surgery, currently 18 weeks . Patient to continue on current diet and daily exercise routine. Follow up in 6 months. * Assessment & Plan Note - Maggi Kim NP - 05/03/2024 9:34 AM CDT Associated Problem(s): Attention deficit hyperactivity disorder (ADHD), predominantly inattentive type Chronic, patient to remain off Adderall during her current . Patient to follow up in 6 months to reassess her symptoms. documented in this encounter Plan of Treatment Scheduled Orders Name Type Priority Associated Diagnoses Orde r Schedule CBC with auto differential Lab Routine Annual physical exam Expected: 05/03/2024, Expires: 05/03/2025 Comprehensive metabolic panel Lab Routine Annual physical exam Expected: 05/03/2024, Expires: 05/03/2025 Lipid panel Lab Routine Annual physical exam Expected: 05/03/2024, Expires: 05/03/2025 documented as of this encounter Visit Diagnoses Diagnosis Annual physical exam- Primary Routine general medical examination at a health care facility Attention deficit hyperactivity disorder (ADHD), predominantly inattentive type RONA (generalized anxiety disorder) Generalized anxiety disorder Morbid obesity with BMI of 45.0-49.9, adult (HCC) documented in this encounter Care Teams Educational Guidance Counselor Relationship Specialty Start Date End Date Maggi Kim NP [address] [place] [address] PCP - General Nurse Practitioner 06/08/23 documented as of this encounter
--- OUTSIDE RECORDS SUMMARY | 2024-10-07 02:54 | XMS_ITS | Encounter Summary ---
Author Organization [facility] Medical Group Address [address] [facility] [address] [place] [id number] Care Team Providers Care Stitching Machine Feeder Or Offbearer Name Role Phone Maggi Kim DATA ANALYST REPORT WRITER Primary Care Provider [phone] Reason for Visit * Reason Comments New Patient Nosebleeds Encounter Details Date Type Department Care Team ([facility] st Contact Info) Description 06/08/2023 8:30 AM CDT Office Visit [facility] Medical [facility] Primary Care [address] [facility] [address] [place] [address] Maggi Kim NP [facility]4 [facility] [address] [place] [address] RONA (generalized anxiety disorder) (Primary Dx); Frequent nosebleeds; History of gastric restrictive surgery; Need for vaccination; Morbid obesity with BMI of 45.0-49.9, adult [...] on file 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 Gender Identity Not on file Sexual Orientation Not on file documented as of this encounter Last Filed Vital Signs Vital Sign Reading Time Taken Comments Blood Pressure 121/81 06/08/2023 8:11 AM CDT Pulse 74 06/08/2023 8:11 AM CDT Temperature 36.7 ??C (98 ??F) 06/08/2023 8:11 AM CDT Respiratory Rate 16 06/08/2023 8:11 AM CDT Oxygen Saturation 99% 06/08/2023 8:11 AM CDT Inhaled Oxygen Concentration - - Weight 131.1 kg (289 lb) 06/08/2023 8:11 AM CDT Height 167.6 cm (5' 6 ) 06/08/2023 8:11 AM CDT Body Mass Index 46.65 06/08/2023 8:11 AM CDT documented in this encounter Ordered Prescriptions Prescription Sig Dispense Quantity Refills Last Filled Start Date End Date oxymetazoline (AFRIN) 0.05 % nasal spray Administer 2 sprays into each nostril 2 (two) times a day 30 mL 1 06/08/2023 busPIRone (BUSPAR) 5 mg tabletIndications: Generalized Anxiety Disorder Take 1 tablet (5 mg total) by mouth 3 (three) times a day 90 tablet 1 06/08/2023 3 documented in this encounter Progress Notes * Maggi Kim, DATA ANALYST REPORT WRITER - 06/08/2023 8:30 AM CDT Images from the original note were not included. Patient ID: Leti Soto is a 32 y.o. female. Chief Complaint. Chief Complaint Patient presents with New Patient Nosebleeds HPI. Patient is a 32 y.o. female HPI Patient presents in office to establish. Patient has history of anxiety currently taking [id number] mg and Wellbutrin 300 mg. Patient states her anxiety has increased in the past few months, she is feeling overwhelmed and stressed day. She is following therapist weekly, but her symptoms have not improved. She is currently following with Leonel Montano NP with [facility] B[facility]. Patient underwent a gastric sleeve procedure in 11/2022, she has lost over 50 lbs since the surgery. She is alsofollowing with SCIENTIFIC WRITER Dr. Paz, states her PAP is UTD. Patient is also experiencing frequent nose bleeds, occurring a few times per week, increased in the past month, episodes can last several minutes. Past Medical History: Diagnosis Date Anxiety Depression [...] Current Medications: Outpatient Encounter Medications as of 06/08/2023 Medication Sig Dispense Refill buPROPion XL (WELLBUTRIN XL) 300 mg 24 hr tablet Take 1 tablet (300 mg total) by mouth shift supervisor rn before breakfast FLUoxetine (PROzac) 20 mg capsule Take 3 capsules (60 mg total) by mouth daily levonorgestreL (MIRENA) IUD by intrauterine route as directed omeprazole (PriLOSEC) 20 mg capsule Take 1 capsule (20 mg total) by mouth daily before breakfast busPIRone (BUSPAR) 5 mg tablet Take 1 tablet (5 mg total) by mouth 3 (three) times a day 90 tablet 1 oxymetazoline (AFRIN) 0.05 % nasal spray Administer 2 sprays into each nostril 2 (two) times a day 30 mL 1 No facility-administered encounter medications on file as of 06/08/2023. Review of Systems: Review of Systems Constitutional: Negative for chills and fever. HENT: Positive for nosebleeds. Negative for congestion, postnasal drip, rhinorrhea, sinus pressure,sinus pain and sneezing. Eyes: Negative for pain and visual disturbance. Respiratory: Negative for apnea, chest tightness, shortness of breath and wheezing. Cardiovascular: Negative for chest pain, palpitations and leg swelling. Gastrointestinal: Negative for abdominal pain, constipation, diarrhea, nausea and vomiting. Endocrine: Negative for cold intolerance and heat intolerance. Musculoskeletal: Negative for arthralgias, gait problem and myalgias. Skin: Negative for color change. Neurological: Negative for dizziness, syncope, speech difficulty, weakness, light-headedness, numbness and headaches. Psychiatric/Behavioral: Negative for confusion, decreased concentration and dysphoric mood. The patient is nervous/anxious. BP 121/81 (BP Location: Left arm, Patient Position: Sitting) Pulse 74 Temp 36.7 ??C (98 ??F) (Temporal) Resp 16 Ht 167.6 cm (5' 6 ) Wt 131.1 kg (289 lb) LMP 05/25/2023 (Approximate) SpO2 99% BMI 46.65 kg/m?? Physical Exam: Physical Exam Constitutional: Appearance: Normal appearance. HENT: Head: Normocephalic. Right Ear: Tympanic membrane, ear canal and external ear normal. Left Ear: Tympanic membrane, ear canal and external ear normal. Nose: No congestion or rhinorrhea. Right Nostril: No epistaxis or occlusion. Left Nostril: No epistaxis or occlusion. Right Turbinates: Not enlarged, swollen or pale. Left Turbinates: Not enlarged, swollen or pale. Right Sinus: No maxillary sinus tenderness or frontal sinus tenderness. Left Sinus: No maxillary sinus tenderness or frontal sinus tenderness. Mouth/Throat: Mouth: Mucous membranes are moist. Pharynx: Oropharynx is clear. Eyes: Extraocular Movements: Extraocular movements intact. Pupils: Pupils are equal, round, and reactive to light. Neck: Vascular: No carotid bruit. Cardiovascular: Rate and Rhythm: Normal rate and regular rhythm. Pulses: Normal pulses. Heart sounds: Normal heart sounds, S1 normal and S2 normal. No murmur heard. Pulmonary: Effort: Pulmonary effort is normal. Breath sounds: Normal breath sounds. No wheezing. Abdominal: General: Abdomen is flat. Bowel sounds are normal. Palpations: Abdomen is soft. Tenderness: There is no abdominal tenderness. There is no guarding. Musculoskeletal: General: Normal range of motion. Cervical back: Normal range of motion and neck supple. Right lower leg: No edema. Left lower leg: No edema. Skin: General: Skin is warm and dry. [...] anxiety disorder) (Primary) Assessment & Plan: Chronic, worsening. Patient to continue on Fluoxetine 60 mg daily, Wellbutrin 300 mg daily, and weekly counseling. Patient prescribed Buspar 5 mg TID PRN. Patient provided with education on medication administration and potential side effects. Patient to follow up in one month. Frequent nosebleeds Assessment & Plan: Patient prescribed Afrin, use during active nosebleed. Patient to begin saline nasal spray and daily OTC oral antihistamine. Patient to call office if nosebleeds continue with medication use. History of gastric restrictive surgery Comments: Following with [facility]. Need for vaccination Comments: Flu vaccine given in office. Orders: - Flu Vaccine Quad PF 6m+ IM - Fluarix / FluLaval / Fluzone Morbid obesity with BMI of 45.0-49.9, adult (HCC) Assessment & Plan: Chronic, improving. Following with [facility]. Underwent gastric sleeve surgery in 11/2022. Other orders - busPIRone (BUSPAR) 5 mg tablet; Take 1 tablet (5 mg total) by mouth 3 (three) times a day - oxymetazoline (AFRIN) 0.05 % nasal spray; Administer 2 sprays into each nostril 2 (two) times a day Maggi Kim NP documented in this encounter Miscellaneous Notes * Assessment & Plan Note - Maggi Kim NP - 06/08/2023 5:19 PM CDT Associated Problem(s): RONA (generalized anxiety disorder) Chronic, worsening. Patient to continue on Fluoxetine 60 mg daily, Wellbutrin 300 mg daily, and weekly counseling. Patient prescribed Buspar 5 mg TID PRN. Patient provided with education on medication administration and potential side effects. Patient to follow up in one month. * Assessment & Plan Note - Maggi Kim NP - 06/08/2023 5:17 PM CDT Associated Problem(s): Frequent nosebleeds Patient prescribed Afrin, use during active nosebleed. Patient to begin saline nasal spray and daily OTC oral antihistamine. Patient to call office if nosebleeds continue with medication use. * Assessment & Plan Note - Maggi Kim NP - 06/08/2023 5:16 PM CDT Associated Problem(s): Morbid obesity with BMI of 45.0-49.9, adult (HCC) (Resolved 07/24/2023) Chronic, improving. Following with [facility]. Underwent gastric sleeve surgery in 11/2022. documented in this encounter Plan of Treatment Not on file documented as of this encounter Visit Diagnoses Diagnosis RONA (generalized anxiety disorder)- Primary Generalized anxiety disorder Frequent nosebleeds History of gastric restrictive surgery Need for vaccination Need for prophylactic vaccination and inoculation against unspecified single disease Morbid obesity with BMI of 45.0-49.9, adult (HCC) documented in this encounter Historical Medications * This list may reflect changes made after this encounter. FLUoxetine (PROzac) 20 mg capsule Take 3 capsules (60 mg total) by mouth daily 03/05/2020 levonorgestreL (MIRENA) IUD by intrauterine route as directed 4 buPROPion XL (WELLBUTRIN XL) 300 mg 24 hr tablet Take 1 tablet (300 mg total) by mouth shift supervisor rn before breakfast 02/26/2020 4 omeprazole (PriLOSEC) 20 mg capsule Take 1 capsule (20 mg total) by mouth daily before breakfast 3 added in this encounter Orders Immunization/Injection Count Last Ordered Date First Ordered Date FLU VACCINE QUAD PF 6M+ IM - FLUARIX / FLULAVAL / FLUZONE- SYRINGE 1 06/08/2023 documented in this encounter Care Teams Stitching Machine Feeder Or Offbearer Relationship Specialty Start Date End Date Maggi Kim, DATA ANALYST REPORT WRITER [address] [place], [place] [id number] PCP - General Nurse Practitioner 06/08/23 documented as of this encounter
--- OUTSIDE RECORDS SUMMARY | 2024-10-07 02:54 | XMS_ITS | Clinical Summary ---
Author Organization [facility] Address [address] [place] [address] Care Team Providers Care Medical Professionals Name Role Phone Unavailable Primary Care Provider Unavailabl e Allergies Active Allergy Reactions Criticality Noted Date Comments Penicillins Rash Low 11/16/2022 Tramadol Palpitations,Abdominal Pain Low 11/16/19 Medications Medication Sig Dispensed Refills Start Date End Date Status semaglutide, weight loss, (Wegovy) 0.5 mg/0.5 mL Pen Injector Inject 0.5 mL (0.5 mg) by subcutaneous injection every 7 days. 2 mL 1 10/26/2022 Active Social History Tobacco Use Types Packs/Day Years Used Date Smoking Tobacco: Never Assessed Sex and Gender Information Value Date Recorded Sex Assigned at Not on file Gender Identity Not on file Sexual Orientation Not on file Plan of Treatment Health Maintenance Due Date Last Done Comments DTAP/TDAP/TD VACCINES (1 - Tdap) 2009 HEPATITIS B VACCINES (1 of 3 - 19+ 3-dose series) 2009 CERVICAL CANCER SCREENING 2020 INFLUENZA VACCINE (#1) 2024 HPV VACCINES Aged Out No longer eligi ble based on patient's age to complete this topic PNEUMOCOCCAL VACCINE 0-64 YEARS Aged Out No longer eligible based on patient's age to complete this topic
--- OUTSIDE RECORDS SUMMARY | 2024-10-07 02:54 | XMS_ITS | Encounter Summary ---
Author Organization [facility] Healthcare Address [address] [place] [address] Care Team Providers Care U.[place]. Representative Name Role Phone Maggi Kim RAILROAD CONSTRUCTION DIRECTOR Primary Care Provider [phone] Reason for Visit * Reason Comments ADHD Discuss adhd symptom s Encounter Details Date Type Department Care Team ([facility] st Contact Info) Description 08/16/2023 8:30 AM JEWEL CORNER BRUSHING MACHINE OPERATOR Office Visit [facility] Medical Group Primary Care [address] [phone] Maggi Kim, RAILROAD CONSTRUCTION DIRECTOR [facility] [address] RONA (generalized anxiety disorder) (Primary [...] on file Legal Sex Female 7:03 PM JEWEL CORNER BRUSHING MACHINE OPERATOR Gender Identity Not on file Sexual Orientation Not on file documented as of this encounter Last Filed Vital Signs Vital Sign Reading Time Taken Comments Blood Pressure 112/72 08/16/2023 8:17 AM JEWEL CORNER BRUSHING MACHINE OPERATOR Pulse 89 08/16/2023 8:17 AM JEWEL CORNER BRUSHING MACHINE OPERATOR Temperature 36 ??C (96.8 ??F) 08/16/2023 8:17 AM JEWEL CORNER BRUSHING MACHINE OPERATOR Respiratory Rate 18 08/16/2023 8:17 AM JEWEL CORNER BRUSHING MACHINE OPERATOR Oxygen Saturation 99% 08/16/2023 8:17 AM JEWEL CORNER BRUSHING MACHINE OPERATOR Inhaled Oxygen Concentration - - Weight 122.5 kg (270 lb) 08/16/2023 8:17 AM JEWEL CORNER BRUSHING MACHINE OPERATOR Height 167.6 cm (5' 5.98 ) 08/16/2023 8:17 AM CS T Body Mass Index 43.61 08/16/2023 8:17 AM JEWEL CORNER BRUSHING MACHINE OPERATOR documented in this encounter Ordered Prescriptions Prescription Sig Dispense Quantity Refills Last Filled Start Date End Date lisdexamfetamine (VYVANSE) 30 mg capsule Take 1 capsule (30 mg total) by mouth every morning 30 capsule 08/16/2023 3 documented in this encounter Progress Notes * Maggi Kim, RAILROAD CONSTRUCTION DIRECTOR - 08/16/2023 8:30 AM CST Images from the original note were not included. Patient ID: Leti Soto is a 32 y.o. female. Chief Complaint. Chief Complaint Patient presents with ADHD Discuss adhd symptoms HPI. Patient is a 32 y.o. female HPI Patient presents in office to discuss ADHD symptoms. Patient has history and anxiety, currently taking Wellbutrin, Buspar, and Fluoxetine. Patient states her anxiety symptoms are controlled with medication use. However, in the last 6 months she is having more difficulty focusing a work, completing tasks on time, procrastination, and avoiding tasks daily. She thought these symptoms would improve once her anxiety was controlled but they haven't. She is currently following with a therapist weekly,her therapist suggested she seek treatment for ADHD. Patient was previously on Vyvanse in the past for weight loss and appetite suppression. She reports tolerating Vyvanse well and was more focused when using the medication. Past Medical History: Diagnosis Date Anxiety Depression [...] Current Medications: Outpatient Encounter Medications as of 08/16/2023 Medication Sig Dispense Refill buPROPion XL (WELLBUTRIN XL) 300 mg 24 hr tablet Take 1 tablet (300 mg total) by mouth drain layer before breakfast busPIRone (BUSPAR) 5 mg tablet TAKE 1 TABLET(5 MG) BY MOUTH THREE TIMES DAILY 90 tablet 5 FLUoxetine (PROzac) 20 mg capsule Take 3 capsules (60 mg total) by mouth daily levonorgestreL (MIRENA) IUD by intrauterine route as directed oxymetazoline (AFRIN) 0.05 % nasal spray Administer 2 sprays into each nostril 2 (two) times a day [address] (PROTONIX) 40 mg EC tablet Take 1 tablet (40 mg total) by mouth 2 (two) times a day [DISCONTINUED] omeprazole (PriLOSEC) 20 mg capsule Take 1 capsule (20 mg total) by mouth daily before breakfast lisdexamfetamine (VYVANSE) 30 mg capsule Take 1 capsule (30 mg total) by mouth every morning 30 capsule 0 No facility-administered encounter medications on file as of 08/16/2023. Review of Systems: Review of Systems Constitutional: Negative for chills and fever. Eyes: Negative for pain and visual disturbance. Respiratory: Negative for chest tightness and shortness of breath. Cardiovascular: Negative for chest pain and palpitations. Neurological: Negative for dizziness, syncope, weakness, light-headedness, numbness and headaches. Psychiatric/Behavioral: Positive for decreased concentration. Negative for dysphoric mood and sleepdisturbance. The patient is not nervous/anxious. BP 112/72 (BP Location: Right arm, Patient Position: Sitting) Pulse 89 Temp 36 ??C (96.8 ??F) (Temporal) Resp 18 Ht 167.6 cm (5' 5.98 ) Wt 122.5 kg (270 lb) SpO2 99% BMI 43.61 kg/m?? Physical Exam: Physical Exam Constitutional: Appearance: Normal appearance. HENT: Head: Normocephalic. Eyes: Extraocular Movements: Extraocular movements intact. Conjunctiva/sclera: Conjunctivae normal. Pupils: Pupils are equal, round, and reactive [...] counseling sessions. Follow up in 6 months. Morbid obesity with BMI of 40.0-44.9, adult ([facility]) Assessment & Plan: Chronic, improving patient has undergone bariatric surgery. Patient to continue on current diet anddaily exercise routine. Follow up in 6 months. Other orders - lisdexamfetamine (VYVANSE) 30 mg capsule; Take 1 capsule (30 mg total) by mouth every morning Maggi Kim NP L CORNER BRUSHING MACHINE OPERATOR documented in this encounter Miscellaneous Notes * Assessment & Plan Note - Maggi Kim NP - 08/16/2023 10:40 AM JEWEL CORNER BRUSHING MACHINE OPERATOR Associated Problem(s): Morbid obesity with BMI of 40.0-44.9, adult (HCC) (Resolved 05/03/2024) Chronic, improving patient has undergone bariatric surgery. Patient to continue on current diet anddaily exercise routine. Follow up in 6 months. L CORNER BRUSHING MACHINE OPERATOR * Assessment & Plan Note - Maggi Kim NP - 08/16/2023 10:39 AM JEWEL CORNER BRUSHING MACHINE OPERATOR Associated Problem(s): RONA (generalized anxiety disorder) Chronic, controlled. Patient to continue on Fluoxetine 60 mg daily, Wellbutrin 300 mg daily, Buspar5 mg TID PRN, and completing weekly counseling sessions. Follow up in 6 months. L CORNER BRUSHING MACHINE OPERATOR * Assessment & Plan Note - Maggi Kim NP - 08/16/2023 10:39 AM JEWEL CORNER BRUSHING MACHINE OPERATOR Associated Problem(s): Attention deficit hyperactivity disorder (ADHD), predominantly inattentive type Patient prescribed Vyvanse 30 mg daily. Patient provided with education on medication administration and potential side effects. Patient to continue following therapist weekly. Follow up in one month. L CORNER BRUSHING MACHINE OPERATOR documented in this encounter Plan of Treatment Not on file documented as of this encounter Visit Diagnoses Diagnosis RONA (generalized anxiety disorder)- Primary Generalized anxiety disorder Morbid obesity with BMI of 40.0-44.9, adult (HCC) documented in this encounter Discontinued Medications Medication Sig Discontinue Reason Start Date End Da te omeprazole (PriLOSEC) 20 mg capsule Take 1 capsule (20 mg total) by mouth daily before breakfast Alternate therapy 08/16/2023 documented as of this encounter Historical Medications * This list may reflect changes made after this encounter. pantoprazole DR (PROTONIX) 40 mg EC tablet Take 1 tablet (40 mg total) by mouth 2 (two) times a day 07/24/2023 added in this encounter Care Teams U.[place]. Representative Relationship Specialty Start Date End Date Maggi Kim NP [address] [place], [place] [id number] PCP - General Nurse Practitioner 06/08/23 documented as of this encounter
--- OUTSIDE RECORDS SUMMARY | 2024-10-07 02:54 | XMS_ITS | Encounter Summary ---
Author Organization [facility] Address [address] [place] [address] Care Team Providers Care Wire Fence Erector Name Role Phone Unavailable Primary Care Provider Unavailabl e Encounter Details Date Type Department Care Team (Late st Contact Info) Description 10/27/2023 External Device Data [facility] ABSTRACTION Provider, Abstract NO ADDRESS ON FILE Social History Tobacco Use Types Packs/Day Years Used Date Smoking Tobacco: Never Assessed Sex and Gender Information Value Date Recorded Sex Assigned at Not on file Gender Identity Not on file Sexual Orientation Not on file documented as of this encounter Plan of Treatment Not on file documented as of this encounter Visit Diagnoses Not on filedocumented in this encounter
--- OUTSIDE RECORDS SUMMARY | 2024-10-07 02:54 | XMS_ITS | Encounter Summary ---
Author Organization [facility] Healthcare Address [address] [place] [address] Care Team Providers Care Drafter Civil Engineering Name Role Phone Zoltan Castañeda Primary Care Provider Unav ailable Encounter Details Date Type Department Care Team (Late st Contact Info) Description 12/13/2022 1:05 PM CDT Lab [facility] Advanced Medicine [facility] Advanced Medicine ([facility]) [address] [place] [phone] Social History Tobacco Use Types Packs/Day Years Used Date Smoking Tobacco: Never Assessed Comments Unknown Sex and Gender Information Value Date Recorded Sex Assigned at Not on file Legal Sex Female 7:03 PM HOSPITAL CLINIC ASSISTANT Gender Identity Not on file Sexual Orientation Not on file documented as of this encounter Plan of Treatment Not on file documented as of this encounter Procedures Procedure Name Priority Date/Time Associated Diagnosis Comments T-SPOT.TB Routine 12/13/2022 1:10 PM CDT documented in this encounter Results * T-SPOT.TB (12/13/2022 1:10 PM CDT) T-SPOT.TB Negative [facility] Comment: Normal Value: Negative A negative test result does not exclude the possibility of exposure to or infection with Mycobacterium tuberculosis (M. tuberculosis). ??Patients with recent exposure to TB infected individuals exhibiting a negative T-SPOT.TB result should be considered for retesting within 6 weeks or if other relevant clinical symptoms indicate. ??Results from T-SPOT.TB testing must be used in conjunction with each individual's epidemiological history, current medical status, and results of other diagnostic evaluations. ??The T-SPOT.TB test is qualitative and results are reported as positive, borderline or negative, given that the test controls perform as expected. In line with the Centers for Disease Control and Prevention's 2010 recommendation to report quantitative measurements alongside the qualitative result, the laboratory provides spot counts for informational purposes only. ??The T-SPOT.TB test should not be interpreted as a quantitative test. T-SPOT.TB Panel A Spot Count 0 [facility] T-SPOT.TB Panel B Spot Count 0 [facility] T-SPOT.TB Negative Control Passed [facility] T-SPOT.TB Positive Control Passed [facility] Comment: Test Performed at: [facility] [place], [place] ??[id number] ? RADHA MICHAELS MD,PHD Blood 12/13/2022 1:10 PM CDT 12/13/2022 1:53 PM CDT us Rey Diamond MD LAB MICROBIOLOGY - GENERAL OR DERABLES Final Result [facility] Department [place] [address] documented in this encounter Visit Diagnoses Not on filedocumented in this encounter Care Teams Drafter Civil Engineering Relationship Specialty Start Date End Date [employer], Notinfile PCP - General 12/13/22 06/07/23 documented as of this encounter
--- OUTSIDE RECORDS SUMMARY | 2024-10-07 02:54 | XMS_ITS | Encounter Summary ---
Author Organization [facility] Address [address] [place] [address] Care Team Providers Care Rn Family Practice Name Role Phone Unavailable Primary Care Provider Unavailabl e Encounter Details Date Type Department Care Team (Late st Contact Info) Description 10/25/2023 External Device Data [facility] ABSTRACTION Provider, Abstract [...]
--- OUTSIDE RECORDS SUMMARY | 2024-10-07 02:54 | XMS_ITS | Encounter Summary ---
Author Organization [facility] Address [address] [place] [address] Care Team Providers Care Technical Support Representative Name Role Phone Unavailable Primary Care Provider Unavailabl e Encounter Details Date Type Department Care Team (Late st Contact Info) Description 11/13/2023 External Device Data [facility] ABSTRACTION Provider, Abstract [...]
--- OUTSIDE RECORDS SUMMARY | 2024-10-07 02:54 | XMS_ITS | Encounter Summary ---
Author Organization [facility] Healthcare Address [address] [place] [address] Care Team Providers Care Rubber And Plastics Worker Name Role Phone Maggi Kim COLOR CHECKER Primary Care Provider Reason for Visit * Reason Comments Anxiety 1 month follow up Encounter Details Date Type Department Care Team ([facility] st Contact Info) Description 07/24/2023 10:30 AM CDT Office Visit [facility] Medical Group Primary Care [address] [phone] Maggi Kim, COLOR CHECKER [facility] [address] RONA (generalized anxiety disorder) (Primary [...] on file Legal Sex Female 7:03 PM LAND LEVELER Gender Identity Not on file Sexual Orientation Not on file documented as of this encounter Last Filed Vital Signs Vital Sign Reading Time Taken Comments Blood Pressure 122/80 07/24/2023 10:18 AM CDT Pulse 69 07/24/2023 10:18 AM CDT Temperature 35.8 ??C (96.5 ??F) 07/24/2023 10:18 AM C DT Respiratory Rate 18 07/24/2023 10:18 AM CDT Oxygen Saturation 99% 07/24/2023 10:18 AM CDT Inhaled Oxygen Concentration - - Weight 125.6 kg (277 lb) 07/24/2023 10:18 AM CDT Height 167.6 cm (5' 5.98 ) 07/24/2023 10:18 AM C DT Body Mass Index 44.73 07/24/2023 10:18 AM CDT documented in this encounter Progress Notes * Maggi Kim, COLOR CHECKER - 07/24/2023 10:30 AM CDT Images from the original note were not included. Patient ID: Leti Soto is a 32 y.o. female. Chief Complaint. Chief Complaint Patient presents with Anxiety 1 month follow up HPI. Patient is a 32 y.o. female HPI Patient presents in office for anxiety follow up. She is currently taking Fluoxetine 60 mg daily, Wellbutrin 300 mg daily, Buspar 5 mg TID PRN, and completing weekly counseling sessions. She has beentolerating Buspar well, denies any side effects. Reports her anxiety has improved with Buspar use, most days she is taking the medication BID. Past Medical History: Diagnosis Date Anxiety Depression [...] Current Medications: Outpatient Encounter Medications as of 07/24/2023 Medication Sig Dispense Refill buPROPion XL (WELLBUTRIN XL) 300 mg 24 hr tablet Take 1 tablet (300 mg total) by mouth early childhood services coordinator before breakfast busPIRone (BUSPAR) 5 mg tablet Take 1 tablet (5 mg total) by mouth 3 (three) times a day 90 tablet 1 FLUoxetine (PROzac) 20 mg capsule Take 3 capsules (60 mg total) by mouth daily levonorgestreL (MIRENA) IUD by intrauterine route as directed omeprazole (PriLOSEC) 20 mg capsule Take 1 capsule (20 mg total) by mouth daily before breakfast oxymetazoline (AFRIN) 0.05 % nasal spray Administer 2 sprays into each nostril 2 (two) times a day 30 mL 1 No facility-administered encounter medications on file as of 07/24/2023. Review of Systems: Review of Systems Constitutional: Negative for chills and fever. Eyes: Negative for pain and visual disturbance. Respiratory: Negative for chest tightness and shortness of breath. Cardiovascular: Negative for chest pain and palpitations. Gastrointestinal: Negative for abdominal pain, nausea and vomiting. Neurological: Negative for dizziness, syncope, speech difficulty, weakness, light-headedness, numbness and headaches. Psychiatric/Behavioral: Negative for agitation, confusion, decreased concentration, dysphoric mood and sleep disturbance. The patient is nervous/anxious. BP 122/80 (BP Location: Right arm, Patient Position: Sitting) Pulse 69 Temp (!) 35.8 ??C (96.5 ??F) (Temporal) Resp 18 Ht 167.6 cm (5' 5.98 ) Wt 125.6 kg (277 lb) SpO2 99% BMI 44.73 kg/m?? Physical Exam: Physical Exam Constitutional: Appearance: Normal appearance. Eyes: Extraocular Movements: Extraocular movements intact. Neck: Vascular: No carotid bruit. Cardiovascular: Rate [...] anxiety disorder) (Primary) Assessment & Plan: Chronic, improving. Patient to continue on Fluoxetine 60 mg daily, Wellbutrin 300 mg daily, Buspar 5 mg TID PRN, and completing weekly counseling sessions. Follow up in 6 months. Morbid obesity with BMI of 40.0-44.9, adult (HCC) Assessment & Plan: Chronic, improving patient has lost 11 lbs since last office visit. Patient to continue on current diet and daily exercise. Follow up in 6 months. Maggi Kim NP documented in this encounter Miscellaneous Notes * Assessment & Plan Note - Maggi Kim NP - 07/24/2023 10:37 AM CDT Associated Problem(s): Morbid obesity with BMI of 40.0-44.9, adult (HCC) (Resolved 05/03/2024) Chronic, improving patient has lost 11 lbs since last office visit. Patient to continue on current diet and daily exercise. Follow up in 6 months. * Assessment & Plan Note - Maggi Kim NP - 07/24/2023 10:36 AM CDT Associated Problem(s): RONA (generalized anxiety disorder) Chronic, improving. Patient to continue on Fluoxetine 60 mg daily, Wellbutrin 300 mg daily, Buspar 5 mg TID PRN, and completing weekly counseling sessions. Follow up in 6 months. documented in this encounter Plan of Treatment Not on file documented as of this encounter Visit Diagnoses Diagnosis RONA (generalized anxiety disorder)- Primary Generalized anxiety disorder Morbid obesity with BMI of 40.0-44.9, adult (HCC) documented in this encounter Care Teams Rubber And Plastics Worker Relationship Specialty [place] [address] [place] [phone] PCP - General Nurse Practitioner 06/08/23 documented as of this encounter
--- OUTSIDE RECORDS SUMMARY | 2024-10-07 02:54 | XMS_ITS | Encounter Summary ---
Author Organization [facility] Address [address] [place] [address] Care Team Providers Care Boilermaker Ship Name Role Phone Unavailable Primary Care Provider Unavailabl e Encounter Details Date Type Department Care Team (Late st Contact Info) Description 09/08/2023 External Device Data [facility] ABSTRACTION Provider, Abstract [...]
== END 2024-10-03 13:04 | disposition home or self-care (01) | DRG 807 ==
LOC: ANHLDR 10-01 13:22 → ANHOB2 10-01 15:44
PROVIDERS: Admitting Provider Obstetrics & Gynecology; Visit Provider Obstetrics & Gynecology
DX: O99.824 Streptococcus B carrier state complicating childbirth (principal); Z37.0 Single live birth; O70.1 Second degree perineal laceration during delivery; Z3A.39 39 weeks gestation of pregnancy
CPT/HCPCS: 36415; 85014; 85018; 85025; 86592; 86703; 86850; 86900; 86901; 90710; A9270; G0432; J0690; J2590; J2795; J3010; J7120